=== PATIENT | female | born 1975 | race Caucasian/White ===

== ENCOUNTER → 2016-08-07 | Outpatient (CLI) | payer OTHER ==
[~2016-08-07] MED LIST: /LAMO10TA OR; /LOR25TA PO; ABIL2TAB2 PO; AMBI10TA PO; BUPIVACAINE HCL 0.25% 10 ML VIAL As Ordered ONE; BUPIVACAINE HCL 0.25% 30 ML VIAL As Ordered ONE; CARV3.12 PO; MULT1CHW21 PO; NUCYNTA PO; OXYC1TAB16 PO; OXYC1TAB23 PO; OXYC5TAB2 PO; OXYCODONE/APAP PO; PRIL20CA9 PO; QUET30TA OR; RIZA5TAB PO; ROBA750T4 PO; TOPA100T8 PO; TRAM50TA2 PO; TRIAMCINOLONE ACETONIDE SUSP 40 MG/ML VIAL (J3301) As Ordered ONE; VOLT1GEL2 TOP; XANA0.5T PO; XANA1TAB2 PO; norco PO
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
== END ==
LOC: M PAIN 09:00
PROVIDERS: ATTEND Anesthesiology
DX: G89.29 Other chronic pain (principal); M79.1 Myalgia; Z79.891 Long term (current) use of opiate analgesic; Z79.899 Other long term (current) drug therapy
CPT/HCPCS: 20552; J3301

== ENCOUNTER 2016-08-28 15:45 | Emergency (ER) | payer OTHER ==
[~2016-08-28 15:45] MED LIST changes: -BUPIVACAINE HCL 0.25% 10 ML VIAL As Ordered ONE; -BUPIVACAINE HCL 0.25% 30 ML VIAL As Ordered ONE; -TRIAMCINOLONE ACETONIDE SUSP 40 MG/ML VIAL (J3301) As Ordered ONE
[2016-08-28 16:20] LABS: MEAN CORPUSCULAR HEMOGLOBIN 26.4 pg (27.0-33.0); MEAN CORPUSCULAR HGB CONC 32.2 g/dl (32.0-36.5); MEAN CORPUSCULAR VOLUME 82.2 fl (80.0-96.0); RED CELL DISTRIBUTION WIDTH 13.9 % (11.5-14.5); WHITE BLOOD COUNT 6.6 K/mm3 (4.0-10.0)
[2016-08-28 16:30] LABS: AMPHETAMINES LEVEL URINE NEGATIVE (NEGATIVE); BENZODIAZEPINES URINE NEGATIVE (NEGATIVE); COCAINE METABOLITE URINE POSITIVE (NEGATIVE); CONTROL LINE INT CTR LINE PRESENT; METHADONE URINE NEGATIVE (NEGATIVE); OPIATES URINE NEGATIVE (NEGATIVE); TRICYCLIC ANTIDEPRESS URINE NEGATIVE (NEGATIVE)
[2016-08-28 16:38] LABS: CONTROL LINE HCG INT CTR LINE PRESENT
[2016-08-28] MEDS ORDERED: LABETALOL 100 MG TAB As Ordered ONE (16:48)
[2016-08-28 16:58] LABS: ALBUMIN 3.7 GM/DL (3.2-5.2); ALBUMIN/GLOBULIN RATIO 1.06 (1.00-1.93); ALKALINE PHOSPHATASE 148 U/L (45-117); ALT/SGPT 88 U/L (12-78); ANION GAP 11 MEQ/L (8-16); AST/SGOT 190 U/L (15-37); BILIRUBIN,DIRECT 0.1 MG/DL (0.0-0.2); BILIRUBIN,TOTAL 0.4 MG/DL (0.2-1.0); BLOOD UREA NITROGEN 6 MG/DL (7-18); CALCIUM LEVEL 8.4 MG/DL (8.5-10.1); CARBON DIOXIDE LEVEL 24 MEQ/L (21-32); CHLORIDE LEVEL 107 MEQ/L (98-107); CREATININE FOR GFR 0.74 MG/DL (0.55-1.02); GLOMERULAR FILTRATION RATE > 60.0 (>58); GLUCOSE, FASTING 83 MG/DL (70-105); SODIUM LEVEL 142 MEQ/L (136-145); TOTAL PROTEIN 7.2 GM/DL (6.4-8.2)
--- NOTE | 2016-08-28 20:14 | ECGEPIP ---
Stationary ECG Study [facility] - ED Test Date: 2016-08-28 Pat Name: JUHI ROLON Department: Room: - Gender: F Sterile Process Coordinator: BUSTER : 1975 Requested By: PAT Amin Order Number: [id number] Reading MD: Alaina Savage Measurements Intervals [place] Rate: 67 P: 37 NM: 129 QRS: 20 QRSD: 90 T: 34 QT: 381 QTc: 404 Interpretive Statements SINUS RHYTHM DECREASED RATE 06/13/16 Electronically Signed On 08-28-2016 20:14:39 EST by Alaina Savage
--- NOTE | 2016-08-28 20:54 | EDDOCDS ---
Nurse's Notes [facility] Name: Juhi Rolon Age: 40 yrs Sex: Female : 1975 Arrival Date: 08/28/2016 Time: 15:45 Bed [facility] Private MD: Diagnosis: Alcohol abuse with intoxication;Cocaine abuse;Essential (primary) hypertension;Bipolar disorder Presentation: 08/28 15:48 Presenting complaint: Patient states: states I was very depressed and want to hurt k self. admits to episodes of cutting. ++ ETOH use and admits to consumption x 2 days and use of cocaine. Mental Health Triage Level: Level 3: The patient presents for care as a result of a suicide attempt. Adult Sepsis Screening: The patient does not have new or worsening altered mentation. Patient's respiratory rate is less than 22. Systolic blood pressure is greater than 100. Patient has a qSOFA score of 0- Negative Sepsis Screen. Suicide/Homicide risk assessment- The patient admits to and/or has been reported to be having suicidal ideations. Status: Patient is not a guest service manager or dependent. Transition of care: patient was not received from another setting of care. 15:48 Acuity: TIFFANIE Level 3 [facility] 15:48 Method Of Arrival: Police Car [facility] Triage Assessment: 15:53 General: Appears in no apparent distress. Pain: Location: left low back and right low jmk back Pain currently is 8 out of 10 on a pain scale. Level that is acceptable is 8 out of 10 on a pain scale. HIV screening NA for this visit Offered previously. SPECIAL EDUCATION ASSOCIATE: 20:53 LMP 08/28/2016 bharatim Historical: - Allergies: Ibuprofen (history of gastric bypas); - Home Meds: 1. Sertraline 200 mg daily (Last dose: 08/28/2016) 2. hydroxyzine HCl 100 mg Oral tab twice a day (Last dose: 08/28/2016) 3. oxycodone 5 mg Oral TbOr 1 tab every 4-6 hours 4. tizanidine 4 mg oral cap as needed (Last dose: 08/23/2016) - PMHx: GERD; PTSD; OCD; Bipolar disorder; Chronic Low Back Pain; - PSHx: arm surgery; Gastric Bypass; Cholecystectomy; - Social history: Smoking status: Patient uses tobacco products, current some day smoker. No barriers to communication noted, The patient speaks fluent Korean. - Family history: Not pertinent. - : The pt / caregiver states he / she is not on anticoagulants. Home medication list is obtained from the patient. - Exposure Risk Screening:: None identified. - Immunization history:: Last tetanus immunization: unknown. Screenin:59 Screening information is obtained from the patient. Fall risk: No risks identified. jmk Assistance ADL's: requires no assistance with activities of daily living. Abuse/DV Screen: The patient / caregiver reports he/she is: not in a situation that causes fear, pain or injury. Nutritional screening: No deficits noted. Advance Directives: Currently, there is no health care proxy. There is no active DNR order. There is no living will. There is no Power of Assistant Auto Center Manager. Advance directive information has not previously been placed in an [facility] medical record. Further advance directive information is declined. home support is adequate. Assessment: 15:56 General: Appears alert and cooperative responses of adequate content and demeanor. k speech slightly slurred but intelligible. gait is steady. superficial linear abrasions to anterior surface of left wrist. admit to self inflicted this AM. 17:17 General: Appears comfortable, Behavior is cooperative. Respiratory: Airway is patent me3 Respiratory effort is even, unlabored. Derm: Skin is pink, warm & dry. 18:18 General: Appears comfortable, Behavior is cooperative. Respiratory: Airway is patent me3 Respiratory effort is even, unlabored. Derm: Skin is pink, warm & dry. 19:39 General: Appears in no apparent distress, comfortable, Behavior is appropriate for age, slm cooperative, pleasant. General: pt sitting on stretcher eating a sandwich denies needs security observing . Respiratory: Airway is patent Respiratory effort is even, labored. 20:25 General: Appears in no apparent distress, comfortable, Behavior is appropriate for age, slm cooperative, pleasant. General: pt sitting on stretcher denies needs security observing . Pain: Denies pain. Neurological: Level of Consciousness is awake, alert, obeys commands. Respiratory: Airway is patent Respiratory pattern is regular. 20:52 Reassessment: Patient appears in no apparent distress at this time. [facility] Mental Health Eval: 19:28 Status: The patient is not a guest service manager or dependent. [facility] Behavioral Health: The patient is not an established patient of [facility] Behavioral Health. Referral Information: Evaluation referral is generated by a police agency: [employer] on .. The patient was referred for evaluation because Pt drinking earlier today, cut self superficially on L arm, expressed SI.. 19:44 Mental Health history: depression, abusing cocaine. post-traumatic stress disorder, cl ADD, ODD. Mental Health Admissions: None. Current Outpatient Mental Health Services: None. Current living environment is The patient currently lives alone. The patient is . Patient presents to Emergency Department with the following symptoms within the past 2 weeks: alcohol abuse, decreased appetite, depressed mood, Patient has mutilated themselves by cutting their left arm suicidal ideation with no plan. Substance abuse: Patient uses cocaine, Last use was 2 days ago. Mental status exam: Patients appearance is appropriate, Patient's behavior is cooperative, Speech is normal. Affect is appropriate. Mood is anxious. Hallucinations are denied. Appetite is erratic Memory is good. Energy level is normal. Content of thought is normal. Thought process is intact. Cognitive level is oriented to person, place, time and situation Rapport with interviewer is good. Suicidal Ideation is denied. Homicidal ideation is denied. 20:15 Subjective: The patients chief complaint is Pt brought to ED after expressing SI while cl drinking earlier today, neighbor called 911? Pt allowed to sober up in ED, admits that she was feeling "sad" today as she was thinking about her 2 children(ages 14 and 17) whom currently reside with their bio-father. Pt states "they live with him because they like their school district more", otherwise pt and ex have joint custody, pt admits to missing the kids, adds that she and ex "get along better now than we did before", adds that he is very supportive. Pt scratched self on wrist as well with knife, denies any ingestions, denies any prior suicide attempts or psych admissions, denies she had any intent to kill self today, denies SI/HI/AH/VH currently, has hx of cocaine abuse, admits to use "2 or 3 days ago", adds "I don't usually drink so that was not a good idea today", feels the ETOH affected her judgment/behavior today. Pt had been seeing Dr. Diallo but was d/c'd from his service last Fall for missing appt.'s, pt has been receiving her medications from her PCP since then, although she reports "they didn't put me on everything I used to take", has been taking Zoloft and Hydroxyzine x 2 weeks. Pt continues to deny SI/HI and requests d/c home, feels she can be safely d/c'd with her ex spouse Jerardo Gayle. PSA contacted Mr. Gayle who felt comfortable with pt being d/c'd to his residence, also offered to come to ED to transport pt home with him. Pt can CFS at this time and has safe d/c with responsible green party.. Delusions are denied. Patient's mood is anxious, Hallucinations are denied. Disposition: Medically cleared for disposition by Pat Bui MD Psychiatric Consult is performed by phone with Dr Judah Oliva MD. [facility] Admission Criteria: Not Applicable. [place] because the patient does not display any suicidal or homicidal ideations and does not pose a risk to self or others. DSM-V Differential Diagnosis: Adjustment Disorder (F43.2) Alcohol Intoxication moderate. Insurance Pre-Certification: Not Required. Vital Signs: 15:53 BP 164 / 106; Pulse 82; Resp 16; Temp 96.8; Pulse Ox 99% on R/A; Weight 89.36 kg; [facility] Height 5 ft. 3 in. (160.02 cm); 16:36 BP 142 / 100 (man/); Pulse 80; Resp 16; k 19:39 BP 138 / 88 (man/); slm 15:53 Body Mass Index 34.90 (89.36 kg, 160.02 cm) [facility] Vitals: 15:53 Log In Time: August 28, 2016 at 15:40. [facility] ED Course: 15:46 Patient visited by Keven Bullard. jp5 15:46 Patient moved to Waiting jp5 15:47 Alyce Guthrie, RN is Primary Nurse. kcs 15:47 Patient moved to kcs 15:49 Triage Initiated [facility] 15:56 Pat Bui MD is Attending Physician. br1 15:59 The patient / caregiver is instructed regarding the plan of care and ED course. jmk 16:08 Patient visited by Michael Medina PCA. jlf 16:08 Patient visited by Michael Medina PCA. jlf 16:08 Psych Safety Check: Location: Medical Room. Visual Assessment: Cooperative. jlf 16:08 Property removed, inventory done, secured in belongings bag- placed in locked storage [facility] room. 16:09 Acetaminophen Level Sent. jmk 16:09 Basic Metabolic Profile Sent. jmk 16:09 Complete Blood Count Sent. jmk 16:09 Drug Eval Toxicology ED Only Sent. jmk 16:10 Ethyl Alcohol (ethanol) Sent. jmk 16:10 HCG,Serum Qualitative Sent. jmk 16:10 Liver Profile Sent. jmk 16:10 Salicylate Level Sent. jmk 16:10 Thyroid Stimulating Hormone Sent. jmk 16:30 Patient visited by Michael Medina PCA. jlf 16:30 Patient visited by Pat Bui MD. br1 16:36 Patient visited by Rony Carlson RN. jmk 16:51 EKG done. (by ED staff). Reviewed by Pat Bui MD. jlf 16:53 Patient visited by Michael Medina PCA. jlf 17:00 Patient moved to [place] [id number] 17:06 Patient visited by Chauncey Ruffin Security Aide. pjf 17:35 [facility] [place] Payment Agreement was scanned into [employer] and attached to record. gjb 17:37 Patient visited by Chauncey Ruffin Security Aide. pjf 18:08 Patient visited by Chauncey Ruffin Security Aide. pjf 18:25 Patient visited by Michael Medina PCA. jlf 18:25 Patient visited by Michael Medina PCA. jlf 18:44 Patient visited by Abran Gracia. mas 19:04 Patient visited by Chauncey Ruffin Security Aide. pjf 19:06 Primary Nurse role handed off by Alyce Guthrie, LISETH jjr 19:21 Patient visited by Chauncey Ruffin Security Aide. pjf 19:30 Patient visited by Abran Gracia. mas 19:37 Attending Physician role handed off by Pat Bui MD cs11 19:37 Benny Hernandez DO is Attending Physician. cs11 19:38 Pat Bui MD is Attending Physician. br1 19:39 Giovana King LPN is Primary Nurse. slm 19:40 Patient visited by Giovana King LPN. slm 19:57 Patient visited by Abran Gracia. mas 20:25 Patient visited by Giovana King LPN. slm 20:32 Patient visited by Pat Bui MD. br1 20:34 [facility] is Referral Physician. br1 20:38 PSA Outpatient Referrals was scanned into [employer] and attached to record. ml4 20:45 Patient visited by Abran Gracia. mas 20:52 No IV's were initiated during this patient's visit. No procedures done that require slm assistance. 20:53 Patient visited by Giovana King LPN. slm 20:54 EKG-ADULT Returned. EDMS Administered Medications: 16:53 Drug: Labetalol 100 mg [labetalol 100 mg tablet (1 tabs)] Route: PO; jjr 20:54 Follow up: Response: Blood pressure is improved slm Order Results: Lab Order: Acetaminophen Level; SPEC'M 08/28/16 16:06 Test: ACETAMINOPHEN LEVEL; Value: < 2.0; Range: 10.0-30.0; Abnormal: Below low normal; Units: UG/ML; Status: F Lab Order: Basic Metabolic Profile; SPEC'M 08/28/16 16:06 Test: GLUCOSE, FASTING; Value: 83; Range: 70-105; Units: MG/DL; Status: F Test: BLOOD UREA NITROGEN; Value: 6; Range: 7-18; Abnormal: Below low normal; Units: MG/DL; Status: F Test: CREATININE FOR GFR; Value: 0.74; Range: 0.55-1.02; Units: MG/DL; Status: F Test: SODIUM LEVEL; Range: 136-145; Units: MEQ/L; Status: I Test: POTASSIUM SERUM; Range: 3.5-5.1; Units: MEQ/L; Status: I Test: CHLORIDE LEVEL; Range: 98-107; Units: MEQ/L; Status: I Test: CARBON DIOXIDE LEVEL; Range: 21-32; Units: MEQ/L; Status: I Test: ANION GAP; Range: 8-16; Units: MEQ/L; Status: I Test: CALCIUM LEVEL; Range: 8.5-10.1; Units: MG/DL; Status: I Test: GLOMERULAR FILTRATION RATE; Value: > 60.0; Range: >58; Status: F Test: SODIUM LEVEL; Value: 142; Range: 136-145; Units: MEQ/L; Status: F Test: POTASSIUM SERUM; Value: 4.0; Range: 3.5-5.1; Units: MEQ/L; Status: F Test: CHLORIDE LEVEL; Value: 107; Range: 98-107; Units: MEQ/L; Status: F Test: CARBON DIOXIDE LEVEL; Value: 24; Range: 21-32; Units: MEQ/L; Status: F Test: ANION GAP; Value: 11; Range: 8-16; Units: MEQ/L; Status: F Test: CALCIUM LEVEL; Value: 8.4; Range: 8.5-10.1; Abnormal: Below low normal; Units: MG/DL; Status: F Test Note: ; Units are mL/min/1.73 m2 Chronic Kidney Disease Staging per NKF: Stage I & II GFR >=60 Normal to Mildly Decreased Stage III GFR 30-59 Moderately Decreased Stage IV GFR 15-29 Severely Decreased Stage V GFR <15 Very Little GFR Left ESRD GFR <15 on WINDER HAND Lab Order: Complete Blood Count; [facility]08/28[facility] 16:06 Test: WHITE BLOOD COUNT; Value: 6.6; Range: 4.0-10.0; Units: K/mm3; Status: F Test: RED BLOOD COUNT; Value: 5.12; Range: 4.00-5.40; Units: M/mm3; Status: F Test: HEMOGLOBIN; Value: 13.5; Range: 12.0-16.0; Units: g/dl; Status: F Test: HEMATOCRIT; Value: 42.1; Range: 36.0-47.0; Units: %; Status: F Test: MEAN CORPUSCULAR VOLUME; Value: 82.2; Range: 80.0-96.0; Units: fl; Status: F Test: MEAN CORPUSCULAR HEMOGLOBIN; Value: 26.4; Range: 27.0-33.0; Abnormal: Below low normal; Units: pg; Status: F Test: MEAN CORPUSCULAR HGB CONC; Value: 32.2; Range: 32.0-36.5; Units: g/dl; Status: F Test: RED CELL DISTRIBUTION WIDTH; Value: 13.9; Range: 11.5-14.5; Units: %; Status: F Test: PLATELET COUNT, AUTOMATED; Value: 342; Range: 150-450; Units: k/mm3; Status: F Lab Order: Drug Eval Toxicology ED Only; SPEC' 08/28/16 16:06 Test: AMPHETAMINES LEVEL URINE; Value: NEGATIVE; Range: NEGATIVE; Status: F Test: BARBITURATES URINE; Value: NEGATIVE; Range: NEGATIVE; Status: F Test: BENZODIAZEPINES URINE; Value: NEGATIVE; Range: NEGATIVE; Status: F Test: CANNABINOIDS URINE; Value: NEGATIVE; Range: NEGATIVE; Status: F Test: COCAINE METABOLITE URINE; Value: POSITIVE; Range: NEGATIVE; Abnormal: Above high normal; Status: F Test: METHADONE URINE; Value: NEGATIVE; Range: NEGATIVE; Status: F Test: OPIATES URINE; Value: NEGATIVE; Range: NEGATIVE; Status: F Test: TRICYCLIC ANTIDEPRESS URINE; Value: NEGATIVE; Range: NEGATIVE; Status: F Test Note: ; ALL PRESUMPTIVE POSITIVE FINDINGS ARE UNCONFIRMED NORMAL VALUES THRESHOLD IN NG/ML AMPHETAMINES 1000 METHAMPHETAMINES 1000 BARBITURATES 300 BENZODIAZEPINES 300 CANNABINOIDS (THC) 50 COCAINE METABOLITE 300 METHADONE 300 OPIATES 300 PHENCYCLIDINE 25 TRICYCLIC ANTIDEPRESSANTS 1000 RESULTS ARE FOR MEDICAL PURPOSES ONLY. ALL URINE SPECIMENS WILL BE SAVED FOR 3 DAYS. IF CONFIRMATION OF A PRESUMPTIVE POSTIVE SCREEN RESULT IS DESIRED, CALL CHEMISTRY ([phone]) AND REQUEST URINE TO BE SENT TO REFERENCE LAB. FOR A LIST OF CLOSELY RELATED COMPOUNDS PLEASE CALL THE LAB. Lab Order: Ethyl Alcohol (ethanol); SPEC'M 08/28/16 16:06 Test: ETHYL ALCOHOL (ETHANOL); Value: 0.152; Range: 0.000-0.010; Abnormal: Above high normal; Units: %; Status: F Lab Order: HCG,Serum Qualitative; SPEC'08/28/16 16:06 Test: HCG, SERUM QUALITATIVE; Value: NEGATIVE; Range: NEGATIVE; Status: F Lab Order: Liver Profile; [facility] 08/28/16 16:06 Test: AST/SGOT; Value: 190; Range: 15-37; Abnormal: Above high normal; Units: U/L; Status: F Test: ALT/SGPT; Value: 88; Range: 12-78; Abnormal: Above high normal; Units: U/L; Status: F Test: ALKALINE PHOSPHATASE; Value: 148; Range: 45-117; Abnormal: Above high normal; Units: U/L; Status: F Test: BILIRUBIN,TOTAL; Value: 0.4; Range: 0.2-1.0; Units: MG/DL; Status: F Test: BILIRUBIN,DIRECT; Value: 0.1; Range: 0.0-0.2; Units: MG/DL; Status: F Test: TOTAL PROTEIN; Value: 7.2; Range: 6.4-8.2; Units: GM/DL; Status: F Test: ALBUMIN; Value: 3.7; Range: 3.2-5.2; Units: GM/DL; Status: F Test: ALBUMIN/GLOBULIN RATIO; Value: 1.06; Range: 1.00-1.93; Status: F Lab Order: Salicylate Level; SPEC'M 08/28/16 16:06 Test: SALICYLATE LEVEL; Value: < 1.7; Range: 5.0-30.0; Abnormal: Below low normal; Units: MG/DL; Status: F Lab Order: Thyroid Stimulating Hormone; SPEC'M 08/28/16 16:06 Test: THYROID STIMULATING HORMONE; Value: 0.874; Range: 0.358-3.740; Units: uIU/ML; Status: F Radiology Order: EKG-ADULT Test: EKG-ADULT REASON FOR EXAMINATION: dysrhythmia; Stationary ECG Study; [facility] - ED; ; Test Date: 2016-08-28; Pat Name: JUHI ROLON Department:; Room: -; Gender: F 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 br1 20:52 Discharge Assessment: Patient awake, alert and oriented x 3. No cognitive and/or slm functional deficits noted. Patient verbalized understanding of disposition instructions. patient administered narcotics - no. The following High Risk Discharge criteria are identified: Yes, pt seen by MD and PSA . Discharged to home ambulatory, with significant other. Condition: stable Condition: improved. Discharge instructions given to patient, Instructed on discharge instructions, follow up and referral plans. Demonstrated understanding of instructions, Pt was receptive of discharge instructions/ teaching. No special radiology studies were completed. 20:54 Patient left the ED. slm Signatures: Dispatcher [employer] EDMS Olivia Harmon, RN RN Rony ColindresRN RN pradeep Casanova, Casey, PSA PSA cl Chauncey Ruffin, Security Aide Securpf Keely Harrison,CHIEF BUSINESS OFFICER CHIEF BUSINESS OFFICER me3 Ailin Lawrence, PSA PSA ml4 Pat Bui MD MD br1 Alyce Guthrie, RN RN Abran Maddox Craig, DO cs11 Giovana King,CHIEF BUSINESS OFFICER CHIEF BUSINESS OFFICER slm Michael Medina, JANIE INSPECTING AND TESTING LEAD HAND Keven Car Gabriela gjb MTDD
--- NOTE | 2016-08-28 20:54 | EDDOCDS ---
Physician Documentation [facility] Name: Aysha Garza Age: 40 yrs Sex: Female : 1975 Arrival Date: 08/28/2016 Time: 15:45 Bed U4 Private MD: Disposition: 08/28/16 20:36 Discharged to Home/Self Care. Impression: Alcohol abuse with intoxication, Cocaine abuse, Essential (primary) hypertension, Bipolar disorder. - Condition is Stable. - Discharge Instructions: Alcohol Intoxication, Hypertension, Bipolar Disorder. - Medication Reconciliation, Local Pharmacy Hours form. - Follow up: Private Physician; When: 2 - 3 days; Reason: Recheck today's complaints. Follow up: [facility]; When: 2 - 3 days; Reason: Recheck today's complaints. - Problem is an ongoing problem. - Symptoms have improved. - Notes: You were seen in the ED for a mental health evaluation with concerns for depression. Blood pressure was elevated and improved with medication. Bloodwork showed no acute findings other than alcohol intoxication and drug scree showed cocaine. Please refrain from further alcohol and cocaine use as this is very harmful to your health. You will need to see your primary doctor for blood pressure recheck within 1 week - please call in the morning to arrange to be seen. You were allowed to sober and Psychiatry was consulted who recommended you may return home to follow up with mental health as an outpatient - please call in the morning as instructed by your psychosocial assesor to arrange mental health follow up. Return to the ED for any chest pain, trouble breathing, visual changes, headache, weakness, numbness, worsening depression, thoughts of harming self or others or any other concerns. Historical: - Allergies: Ibuprofen (history of gastric bypas); - Home Meds: 1. Sertraline 200 mg daily (Last dose: 08/28/2016) 2. hydroxyzine HCl 100 mg Oral tab twice a day (Last dose: 08/28/2016) 3. oxycodone 5 mg Oral TbOr 1 tab every 4-6 hours 4. tizanidine 4 mg oral cap as needed (Last dose: 08/23/2016) - PMHx: GERD; PTSD; OCD; Bipolar disorder; Chronic Low Back Pain; - PSHx: arm surgery; Gastric Bypass; Cholecystectomy; - Social history: Smoking status: Patient uses tobacco products, current some day smoker. No barriers to communication noted, The patient speaks fluent German. - Family history: Not pertinent. - : The pt / caregiver states he / she is not on anticoagulants. Home medication list is obtained from the patient. - Exposure Risk Screening:: None identified. - Immunization history:: Last tetanus immunization: unknown. 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 3 in. (160.02 cm); 16:36 BP 142 / 100 (man/); Pulse 80; Resp 16; jmk 19:39 BP 138 / 88 (man/); slm 15:53 Body Mass Index 34.90 (89.36 kg, 160.02 cm) k MDM: 15:55 Consult PFS/PSA/Housekeeping Attendant ordered. ml6 15:55 Consult PFS/PSA/Housekeeping Attendant: Patient's case requires discussion with on-call ml6 Psychiatrist ordered. 15:55 PSA/PFS to call Nursing Apartment Coordinator, to enter patient data on [place] Safe Act if patient ml6 involuntarily admitted or transferred for SI or HI ordered. 15:55 Confirm accurate psychiatric medication list and times of last dosage ordered. ml6 15:55 Detain Pt Until Medically/PFS Cleared ordered. ml6 15:55 Acetaminophen Level Ordered. EDMS 15:55 Basic Metabolic Profile Ordered. EDMS 15:55 Complete Blood Count Ordered. EDMS 15:55 Drug Eval Toxicology ED Only Ordered. EDMS 15:55 Ethyl Alcohol (ethanol) Ordered. EDMS 15:55 HCG,Serum Qualitative Ordered. EDMS 15:55 Liver Profile Ordered. EDMS 15:55 Salicylate Level Ordered. EDMS 15:55 Thyroid Stimulating Hormone Ordered. EDMS 16:23 REGULAR DIET ROOM SERVICE ED+DIET ordered. EDMS 16:31 Misc. Nursing Order ordered. br1 16:42 Complete Blood Count Reviewed. br1 16:42 Drug Eval Toxicology ED Only Reviewed. br1 16:42 HCG,Serum Qualitative Reviewed. br1 16:43 Labetalol 100 mg PO once ordered. br1 16:45 ECG WITH READING ER PHYS+CARDIAG ordered. EDMS 16:54 Financial registration complete. gjb 17:33 REGULAR DIET ROOM SERVICE ED+DIET ordered. EDMS 17:35 [facility] [place] Agreement was scanned into [employer] and attached to record. gjb 17:51 Acetaminophen Level Reviewed. br1 17:51 Basic Metabolic Profile Reviewed. br1 17:51 Ethyl Alcohol (ethanol) Reviewed. br1 17:51 Liver Profile Reviewed. br1 17:51 Salicylate Level Reviewed. br1 17:51 HCG,Serum Qualitative Reviewed. br1 17:51 Thyroid Stimulating Hormone Reviewed. br1 19:07 Recheck B/P ordered. br1 19:34 Consult PFS/PSA/Housekeeping Attendant complete. cl 19:35 Consult PFS/PSA/Housekeeping Attendant: Patient's case requires discussion with on-call cl Psychiatrist complete. 19:35 PSA/PFS to call Nursing Apartment Coordinator, to enter patient data on [place] Safe [place] if patient cl involuntarily admitted or transferred for SI or HI complete. 20:38 PSA Outpatient Referrals was scanned into [employer] and attached to record. ml4 Administered Medications: 16:53 Drug: Labetalol 100 mg [labetalol 100 mg tablet (1 tabs)] Route: PO; jjr 20:54 Follow up: Response: Blood pressure is improved slm Signatures: Dispatcher [employer] EDMS Rony Carlson,RN RN jmk Edilberto, Casey, PSA PSA cl Ailin Lawrence, PSA PSA ml4 Juan Bui MD MD br1 Anastacio Loaiza RN RN ml6 Giovana King LPN DINING ROOM HOST slKristen Rodriguez gjb Alyce Guthrie RN jjr The chart was reviewed and I authenticate all verbal orders and agree with the evaluation and treatment provided.Attachments: 17:35 [facility] [place] Agreement gjb MTDD
--- NOTE | 2016-08-30 21:55 | EDDOCDS ---
Physician Documentation [facility] Name: Aysha Garza Age: 40 yrs Sex: Female : 1975 Arrival Date: 08/28/2016 Time: 15:45 Bed U4 Private MD: Disposition: 08/28/16 20:36 Discharged to Home/Self Care. Impression: Alcohol abuse with intoxication, Cocaine abuse, Essential (primary) hypertension, Bipolar disorder. - Condition is Stable. - Discharge Instructions: Alcohol Intoxication, Hypertension, Bipolar Disorder. - Medication Reconciliation, Local Pharmacy Hours form. - Follow up: Private Physician; When: 2 - 3 days; Reason: Recheck today's complaints. Follow up: [facility]; When: 2 - 3 days; Reason: Recheck today's complaints. - Problem is an ongoing problem. - Symptoms have improved. - Notes: You were seen in the ED for a mental health evaluation with concerns for depression. Blood pressure was elevated and improved with medication. Bloodwork showed no acute findings other than alcohol intoxication and drug scree showed cocaine. Please refrain from further alcohol and cocaine use as this is very harmful to your health. You will need to see your primary doctor for blood pressure recheck within 1 week - please call in the morning to arrange to be seen. You were allowed to sober and Psychiatry was consulted who recommended you may return home to follow up with mental health as an outpatient - please call in the morning as instructed by your psychosocial assesor to arrange mental health follow up. Return to the ED for any chest pain, trouble breathing, visual changes, headache, weakness, numbness, worsening depression, thoughts of harming self or others or any other concerns. Historical: - Allergies: Ibuprofen (history of gastric bypas); - Home Meds: 1. Sertraline 200 mg daily (Last dose: 08/28/2016) 2. hydroxyzine HCl 100 mg Oral tab twice a day (Last dose: 08/28/2016) 3. oxycodone 5 mg Oral TbOr 1 tab every 4-6 hours 4. tizanidine 4 mg oral cap as needed (Last dose: 08/23/2016) - PMHx: GERD; PTSD; OCD; Bipolar disorder; Chronic Low Back Pain; - PSHx: arm surgery; Gastric Bypass; Cholecystectomy; - Social history: Smoking status: Patient uses tobacco products, current some day smoker. No barriers to communication noted, The patient speaks fluent Cambodian. - Family history: Not pertinent. - : The pt / caregiver states he / she is not on anticoagulants. Home medication list is obtained from the patient. - Exposure Risk Screening:: None identified. - Immunization history:: Last tetanus immunization: unknown. 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 Vital Signs: 15:53 BP 164 / 106; Pulse 82; Resp 16; Temp 96.8; Pulse Ox 99% on R/A; Weight 89.36 kg / jmk 197.01 lbs; Height 5 ft. 3 in. (160.02 cm); 16:36 BP 142 / 100 (man/); Pulse 80; Resp 16; jmk 19:39 BP 138 / 88 (man/); slm 15:53 Body Mass Index 34.90 (89.36 kg, 160.02 cm) k MDM: 15:55 Consult PFS/PSA/Automotive Glazier ordered. ml6 15:55 Consult PFS/PSA/Automotive Glazier: Patient's case requires discussion with on-call ml6 Psychiatrist ordered. 15:55 PSA/PFS to call Nursing Accessibility Lift Technician, to enter patient data on [place] if patient ml6 involuntarily admitted or transferred for SI or HI ordered. 15:55 Confirm accurate psychiatric medication list and times of last dosage ordered. ml6 15:55 Detain Pt Until Medically/PFS Cleared ordered. ml6 15:55 Acetaminophen Level Ordered. EDMS 15:55 Basic Metabolic Profile Ordered. EDMS 15:55 Complete Blood Count Ordered. EDMS 15:55 Drug Eval Toxicology ED Only Ordered. EDMS 15:55 Ethyl Alcohol (ethanol) Ordered. EDMS 15:55 HCG,Serum Qualitative Ordered. EDMS 15:55 Liver Profile Ordered. EDMS 15:55 Salicylate Level Ordered. EDMS 15:55 Thyroid Stimulating Hormone Ordered. EDMS 16:23 REGULAR DIET ROOM SERVICE ED+DIET ordered. EDMS 16:31 Misc. Nursing Order ordered. br1 16:42 Complete Blood Count Reviewed. br1 16:42 Drug Eval Toxicology ED Only Reviewed. br1 16:42 HCG,Serum Qualitative Reviewed. br1 16:43 Labetalol 100 mg PO once ordered. br1 16:45 ECG WITH READING ER PHYS+CARDIAG ordered. EDMS 16:54 Financial registration complete. gjb 17:33 REGULAR DIET ROOM SERVICE ED+DIET ordered. EDMS 17:35 [facility] Payment Agreement was scanned into [employer] and attached to record. gjb 17:51 Acetaminophen Level Reviewed. br1 17:51 Basic Metabolic Profile Reviewed. br1 17:51 Ethyl Alcohol (ethanol) Reviewed. br1 17:51 Liver Profile Reviewed. br1 17:51 Salicylate Level Reviewed. br1 17:51 HCG,Serum Qualitative Reviewed. br1 17:51 Thyroid Stimulating Hormone Reviewed. br1 19:07 Recheck B/P ordered. br1 19:34 Consult PFS/PSA/Automotive Glazier complete. cl 19:35 Consult PFS/PSA/Automotive Glazier: Patient's case requires discussion with on-call cl Psychiatrist complete. 19:35 PSA/PFS to call Nursing Accessibility Lift Technician, to enter patient data on [place] Safe [place] if patient cl involuntarily admitted or transferred for SI or HI complete. 20:38 PSA Outpatient Referrals was scanned into [employer] and attached to record. ml4 08/29 12:01 T-Sheet-- Draft Copy was scanned into [employer] and attached to record. gb 12:01 ECG/EKG was scanned into [employer] and attached to record. gb Administered Medications: 08/28 16:53 Drug: Labetalol 100 mg [labetalol 100 mg tablet (1 tabs)] Route: PO; jjr 20:54 Follow up: Response: Blood pressure is improved slm Signatures: Dispatcher [employer] EDMS Rony Carlson,RN RN pradeep Casanova, Casey, PSA PSA cl Ladonna Rivas, Reg Reg gb Ailin Lawrence, PSA PSA ml4 Juan Bui MD MD br1 Anastacio Loaiza, RN RN ml6 Giovana King LPN LPN slm Beck, Gabriela gjb Alyce Guthrie RN jjr The chart was reviewed and I authenticate all verbal orders and agree with the evaluation and treatment provided.Attachments: 17:35 [facility] Payment Agreement gjb 08/29 12:01 T-Sheet-- Draft Copy gb 12:01 ECG/EKG gb Chart Complete MTDD
--- NOTE | 2016-08-30 21:55 | EDDOCDS ---
Physician Documentation [facility] Name: Aysha Garza Age: 40 yrs Sex: Female : 1975 Arrival Date: 08/28/2016 Time: 15:45 Bed U4 Private MD: Disposition: 08/28/16 20:36 Discharged to Home/Self Care. Impression: Alcohol abuse with intoxication, Cocaine abuse, Essential (primary) hypertension, Bipolar disorder. - Condition is Stable. - Discharge Instructions: Alcohol Intoxication, Hypertension, Bipolar Disorder. - Medication Reconciliation, Local Pharmacy Hours form. - Follow up: Private Physician; When: 2 - 3 days; Reason: Recheck today's complaints. Follow up: [facility]; When: 2 - 3 days; Reason: Recheck today's complaints. - Problem is an ongoing problem. - Symptoms have improved. - Notes: You were seen in the ED for a mental health evaluation with concerns for depression. Blood pressure was elevated and improved with medication. Bloodwork showed no acute findings other than alcohol intoxication and drug scree showed cocaine. Please refrain from further alcohol and cocaine use as this is very harmful to your health. You will need to see your primary doctor for blood pressure recheck within 1 week - please call in the morning to arrange to be seen. You were allowed to sober and Psychiatry was consulted who recommended you may return home to follow up with mental health as an outpatient - please call in the morning as instructed by your psychosocial assesor to arrange mental health follow up. Return to the ED for any chest pain, trouble breathing, visual changes, headache, weakness, numbness, worsening depression, thoughts of harming self or others or any other concerns. Historical: - Allergies: Ibuprofen (history of gastric bypas); - Home Meds: 1. Sertraline 200 mg daily (Last dose: 08/28/2016) 2. hydroxyzine HCl 100 mg Oral tab twice a day (Last dose: 08/28/2016) 3. oxycodone 5 mg Oral TbOr 1 tab every 4-6 hours 4. tizanidine 4 mg oral cap as needed (Last dose: 08/23/2016) - PMHx: GERD; PTSD; OCD; Bipolar disorder; Chronic Low Back Pain; - PSHx: arm surgery; Gastric Bypass; Cholecystectomy; - Social history: Smoking status: Patient uses tobacco products, current some day smoker. No barriers to communication noted, The patient speaks fluent [place]. - Family history: Not pertinent. - : The pt / caregiver states he / she is not on anticoagulants. Home medication list is obtained from the patient. - Exposure Risk Screening:: None identified. - Immunization history:: Last tetanus immunization: unknown. 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 3 in. (160.02 cm); 16:36 BP 142 / 100 (man/); Pulse 80; Resp 16; jmk 19:39 BP 138 / 88 (man/); slm 15:53 Body Mass Index 34.90 (89.36 kg, 160.02 cm) k MDM: 15:55 Consult PFS/PSA/Air Conditioning Service Technician ordered. ml6 15:55 Consult PFS/PSA/Air Conditioning Service Technician: Patient's case requires discussion with on-call ml6 Psychiatrist ordered. 15:55 PSA/PFS to call Nursing Tree Surgeon Helper, to enter patient data [place] if patient ml6 involuntarily admitted or transferred for SI or HI ordered. 15:55 Confirm accurate psychiatric medication list and times of last dosage ordered. ml6 15:55 Detain Pt Until Medically/PFS Cleared ordered. ml6 15:55 Acetaminophen Level Ordered. EDMS 15:55 Basic Metabolic Profile Ordered. EDMS 15:55 Complete Blood Count Ordered. EDMS 15:55 Drug Eval Toxicology ED Only Ordered. EDMS 15:55 Ethyl Alcohol (ethanol) Ordered. EDMS 15:55 HCG,Serum Qualitative Ordered. EDMS 15:55 Liver Profile Ordered. EDMS 15:55 Salicylate Level Ordered. EDMS 15:55 Thyroid Stimulating Hormone Ordered. EDMS 16:23 REGULAR DIET ROOM SERVICE ED+DIET ordered. EDMS 16:31 Misc. Nursing Order ordered. br1 16:42 Complete Blood Count Reviewed. br1 16:42 Drug Eval Toxicology ED Only Reviewed. br1 16:42 HCG,Serum Qualitative Reviewed. br1 16:43 Labetalol 100 mg PO once ordered. br1 16:45 ECG WITH READING ER PHYS+CARDIAG ordered. EDMS 16:54 Financial registration complete. gjb 17:33 REGULAR DIET ROOM SERVICE ED+DIET ordered. EDMS 17:35 [facility] Payment Agreement was scanned into [employer] and attached to record. gjb 17:51 Acetaminophen Level Reviewed. br1 17:51 Basic Metabolic Profile Reviewed. br1 17:51 Ethyl Alcohol (ethanol) Reviewed. br1 17:51 Liver Profile Reviewed. br1 17:51 Salicylate Level Reviewed. br1 17:51 HCG,Serum Qualitative Reviewed. br1 17:51 Thyroid Stimulating Hormone Reviewed. br1 19:07 Recheck B/P ordered. br1 19:34 Consult PFS/PSA/Air Conditioning Service Technician complete. cl 19:35 Consult PFS/PSA/Air Conditioning Service Technician: Patient's case requires discussion with on-call cl Psychiatrist complete. 19:35 PSA/PFS to call Nursing Tree Surgeon Helper, to enter patient data [place] if patient cl involuntarily admitted or transferred for SI or HI complete. 20:38 PSA Outpatient Referrals was scanned into [employer] and attached to record. ml4 08/29 12:01 T-Sheet-- Draft Copy was scanned into [employer] and attached to record. gb 12:01 ECG/EKG was scanned into [employer] and attached to record. gb Administered Medications: 08/28 16:53 Drug: Labetalol 100 mg [labetalol 100 mg tablet (1 tabs)] Route: PO; jjr 20:54 Follow up: Response: Blood pressure is improved slm Signatures: Dispatcher [employer] EDMS Rony Carlson,RN RN pradeep Casanova, Casey, PSA PSA cl Ladonna Rivas, Reg Reg gb Ailin Lawrence, PSA PSA ml4 Juan Bui MD MD br1 Anastacio Loaiza, RN RN ml6 Giovana King LPN LPN slm Beck, Gabriela gjb Alyce Guthrie RN jjr The chart was reviewed and I authenticate all verbal orders and agree with the evaluation and treatment provided.Attachments: 17:35 [facility] Payment Agreement gjb 08/29 12:01 T-Sheet-- Draft Copy gb 12:01 ECG/EKG gb Chart Complete MTDD
--- NOTE | 2016-08-30 21:55 | EDDOCDS ---
Nurse's Notes [facility] Name: Juhi Rolon Age: 40 yrs Sex: Female : 1975 Arrival Date: 08/28/2016 Time: 15:45 Bed [facility] Private MD: Diagnosis: Alcohol abuse with intoxication;Cocaine abuse;Essential (primary) hypertension;Bipolar disorder Presentation: 08/28 15:48 Presenting complaint: Patient states: states I was very depressed and want to hurt k self. admits to episodes of cutting. ++ ETOH use and admits to consumption x 2 days and use of cocaine. Mental Health Triage Level: Level 3: The patient presents for care as a result of a suicide attempt. Adult Sepsis Screening: The patient does not have new or worsening altered mentation. Patient's respiratory rate is less than 22. Systolic blood pressure is greater than 100. Patient has a qSOFA score of 0- Negative Sepsis Screen. Suicide/Homicide risk assessment- The patient admits to and/or has been reported to be having suicidal ideations. Status: Patient is not a medical service technician or dependent. Transition of care: patient was not received from another setting of care. 15:48 Acuity: TIFFANIE Level 3 [facility] 15:48 Method Of Arrival: Police Car [facility] Triage Assessment: 15:53 General: Appears in no apparent distress. Pain: Location: left low back and right low jmk back Pain currently is 8 out of 10 on a pain scale. Level that is acceptable is 8 out of 10 on a pain scale. HIV screening NA for this visit Offered previously. 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 Sertraline 200 mg daily (Last dose: 08/28/2016) 2. hydroxyzine HCl 100 mg Oral tab twice a day (Last dose: 08/28/2016) 3. oxycodone 5 mg Oral TbOr 1 tab every 4-6 hours 4. tizanidine 4 mg oral cap as needed (Last dose: 08/23/2016) - PMHx: GERD; PTSD; OCD; Bipolar disorder; Chronic Low Back Pain; - PSHx: arm surgery; Gastric Bypass; Cholecystectomy; - Social history: Smoking status: Patient uses tobacco products, current some day smoker. No barriers to communication noted, The patient speaks fluent Kazakh. - Family history: Not pertinent. - : The pt / caregiver states he / she is not on anticoagulants. Home medication list is obtained from the patient. - Exposure Risk Screening:: None identified. - Immunization history:: Last tetanus immunization: unknown. Screenin:59 Screening information is obtained from the patient. Fall risk: No risks identified. jmk Assistance ADL's: requires no assistance with activities of daily living. Abuse/DV Screen: The patient / caregiver reports he/she is: not in a situation that causes fear, pain or injury. Nutritional screening: No deficits noted. Advance Directives: Currently, there is no health care proxy. There is no active DNR order. There is no living will. There is no Power of Machine Taper. Advance directive information has not previously been placed in an [facility] medical record. Further advance directive information is declined. home support is adequate. Assessment: 15:56 General: Appears alert and cooperative responses of adequate content and demeanor. k speech slightly slurred but intelligible. gait is steady. superficial linear abrasions to anterior surface of left wrist. admit to self inflicted this AM. 17:17 General: Appears comfortable, Behavior is cooperative. Respiratory: Airway is patent me3 Respiratory effort is even, unlabored. Derm: Skin is pink, warm & dry. 18:18 General: Appears comfortable, Behavior is cooperative. Respiratory: Airway is patent me3 Respiratory effort is even, unlabored. Derm: Skin is pink, warm & dry. 19:39 General: Appears in no apparent distress, comfortable, Behavior is appropriate for age, slm cooperative, pleasant. General: pt sitting on stretcher eating a sandwich denies needs security observing . Respiratory: Airway is patent Respiratory effort is even, labored. 20:25 General: Appears in no apparent distress, comfortable, Behavior is appropriate for age, slm cooperative, pleasant. General: pt sitting on stretcher denies needs security observing . Pain: Denies pain. Neurological: Level of Consciousness is awake, alert, obeys commands. Respiratory: Airway is patent Respiratory pattern is regular. 20:52 Reassessment: Patient appears in no apparent distress at this time. [facility] Mental Health Eval: 19:28 Status: The patient is not a medical service technician or dependent. [facility] Behavioral Health: The patient is not an established patient of [facility] Behavioral Health. Referral Information: Evaluation referral is generated by a police agency: [employer] on .. The patient was referred for evaluation because Pt drinking earlier today, cut self superficially on L arm, expressed SI.. 19:44 Mental Health history: depression, abusing cocaine. post-traumatic stress disorder, cl ADD, ODD. Mental Health Admissions: None. Current Outpatient Mental Health Services: None. Current living environment is The patient currently lives alone. The patient is . Patient presents to Emergency Department with the following symptoms within the past 2 weeks: alcohol abuse, decreased appetite, depressed mood, Patient has mutilated themselves by cutting their left arm suicidal ideation with no plan. Substance abuse: Patient uses cocaine, Last use was 2 days ago. Mental status exam: Patients appearance is appropriate, Patient's behavior is cooperative, Speech is normal. Affect is appropriate. Mood is anxious. Hallucinations are denied. Appetite is erratic Memory is good. Energy level is normal. Content of thought is normal. Thought process is intact. Cognitive level is oriented to person, place, time and situation Rapport with interviewer is good. Suicidal Ideation is denied. Homicidal ideation is denied. 20:15 Subjective: The patients chief complaint is Pt brought to ED after expressing SI while cl drinking earlier today, neighbor called 911? Pt allowed to sober up in ED, admits that she was feeling "sad" today as she was thinking about her 2 children(ages 14 and 17) whom currently reside with their bio-father. Pt states "they live with him because they like their school district more", otherwise pt and ex have joint custody, pt admits to missing the kids, adds that she and ex "get along better now than we did before", adds that he is very supportive. Pt scratched self on wrist as well with knife, denies any ingestions, denies any prior suicide attempts or psych admissions, denies she had any intent to kill self today, denies SI/HI/AH/VH currently, has hx of cocaine abuse, admits to use "2 or 3 days ago", adds "I don't usually drink so that was not a good idea today", feels the ETOH affected her judgment/behavior today. Pt had been seeing Dr. Diallo but was d/c'd from his service last Fall for missing appt.'s, pt has been receiving her medications from her PCP since then, although she reports "they didn't put me on everything I used to take", has been taking Zoloft and Hydroxyzine x 2 weeks. Pt continues to deny SI/HI and requests d/c home, feels she can be safely d/c'd with her ex spouse Jerardo Gayle. PSA contacted Mr. Gayle who felt comfortable with pt being d/c'd to his residence, also offered to come to ED to transport pt home with him. Pt can CFS at this time and has safe d/c with responsible green party.. Delusions are denied. Patient's mood is anxious, Hallucinations are denied. Disposition: Medically cleared for disposition by Pat Bui MD Psychiatric Consult is performed by phone with Dr Judah Oliva MD. [facility] Admission Criteria: Not Applicable. [place]: [place] is not applicable because the patient does not display any suicidal or homicidal ideations and does not pose a risk to self or others. DSM-V Differential Diagnosis: Adjustment Disorder (F43.2) Alcohol Intoxication moderate. Insurance Pre-Certification: Not Required. Vital Signs: 15:53 BP 164 / 106; Pulse 82; Resp 16; Temp 96.8; Pulse Ox 99% on R/A; Weight 89.36 kg; [facility] Height 5 ft. 3 in. (160.02 cm); 16:36 BP 142 / 100 (man/); Pulse 80; Resp 16; k 19:39 BP 138 / 88 (man/); slm 15:53 Body Mass Index 34.90 (89.36 kg, 160.02 cm) [facility] Vitals: 15:53 Log In Time: August 28, 2016 at 15:40. [facility] ED Course: 15:46 Patient visited by Keven Bullard. jp5 15:46 Patient moved to Waiting jp5 15:47 Alyce Guthrie, RN is Primary Nurse. kcs 15:47 Patient moved to kcs 15:49 Triage Initiated [facility] 15:56 Pat Bui MD is Attending Physician. br1 15:59 The patient / caregiver is instructed regarding the plan of care and ED course. jmk 16:08 Patient visited by Michael Medina PCA. jlf 16:08 Patient visited by Michael Medina PCA. jlf 16:08 Psych Safety Check: Location: Medical Room. Visual Assessment: Cooperative. jlf 16:08 Property removed, inventory done, secured in belongings bag- placed in locked storage [facility] room. 16:09 Acetaminophen Level Sent. jmk 16:09 Basic Metabolic Profile Sent. jmk 16:09 Complete Blood Count Sent. jmk 16:09 Drug Eval Toxicology ED Only Sent. jmk 16:10 Ethyl Alcohol (ethanol) Sent. jmk 16:10 HCG,Serum Qualitative Sent. jmk 16:10 Liver Profile Sent. jmk 16:10 Salicylate Level Sent. jmk 16:10 Thyroid Stimulating Hormone Sent. jmk 16:30 Patient visited by Michael Medina PCA. jlf 16:30 Patient visited by Pat Bui MD. br1 16:36 Patient visited by Rony Carlson RN. jmk 16:51 EKG done. (by ED staff). Reviewed by Pat Bui MD. jlf 16:53 Patient visited by Michael Medina PCA. jlf 17:00 Patient moved to [place] [id number] 17:06 Patient visited by Chauncey Ruffin Security Aide. pjf 17:35 [facility] Payment Agreement was scanned into [employer] and attached to record. gjb 17:37 Patient visited by Chauncey Ruffin Security Aide. pjf 18:08 Patient visited by Chauncey Ruffin Security Aide. pjf 18:25 Patient visited by Michael Medina PCA. jlf 18:25 Patient visited by Michael Medina PCA. jlf 18:44 Patient visited by Abran Gracia. mas 19:04 Patient visited by Chauncey Ruffin Security Aide. pjf 19:06 Primary Nurse role handed off by Alyce Guthrie, LISETH jjr 19:21 Patient visited by Chauncey Ruffin Security Aide. pjf 19:30 Patient visited by Abran Gracia. mas 19:37 Attending Physician role handed off by Pat Bui MD cs11 19:37 Benny Hernandez DO is Attending Physician. cs11 19:38 Pat Bui MD is Attending Physician. br1 19:39 Giovana King LPN is Primary Nurse. slm 19:40 Patient visited by Giovana King LPN. slm 19:57 Patient visited by Abran Gracia. mas 20:25 Patient visited by Giovana King LPN. slm 20:32 Patient visited by Pat Bui MD. br1 20:34 [facility] is Referral Physician. br1 20:38 PSA Outpatient Referrals was scanned into [employer] and attached to record. ml4 20:45 Patient visited by Abran Gracia. mas 20:52 No IV's were initiated during this patient's visit. No procedures done that require slm assistance. 20:53 Patient visited by Giovana King LPN. slm 20:54 EKG-ADULT Returned. EDMS 08/29 12:01 T-Sheet-- Draft Copy was scanned into [employer] and attached to record. gb 12:01 ECG/EKG was scanned into [employer] and attached to record. gb Administered Medications: 08/28 16:53 Drug: Labetalol 100 mg [labetalol 100 mg tablet (1 tabs)] Route: PO; jjr 20:54 Follow up: Response: Blood pressure is improved slm Order Results: Lab Order: Acetaminophen Level; SPEC'M 08/28/16 16:06 Test: ACETAMINOPHEN LEVEL; Value: < 2.0; Range: 10.0-30.0; Abnormal: Below low normal; Units: UG/ML; Status: F Lab Order: Basic Metabolic Profile; SPEC'M 08/28/16 16:06 Test: GLUCOSE, FASTING; Value: 83; Range: 70-105; Units: MG/DL; Status: F Test: BLOOD UREA NITROGEN; Value: 6; Range: 7-18; Abnormal: Below low normal; Units: MG/DL; Status: F Test: CREATININE FOR GFR; Value: 0.74; Range: 0.55-1.02; Units: MG/DL; Status: F Test: SODIUM LEVEL; Range: 136-145; Units: MEQ/L; Status: I Test: POTASSIUM SERUM; Range: 3.5-5.1; Units: MEQ/L; Status: I Test: CHLORIDE LEVEL; Range: 98-107; Units: MEQ/L; Status: I Test: CARBON DIOXIDE LEVEL; Range: 21-32; Units: MEQ/L; Status: I Test: ANION GAP; Range: 8-16; Units: MEQ/L; Status: I Test: CALCIUM LEVEL; Range: 8.5-10.1; Units: MG/DL; Status: I Test: GLOMERULAR FILTRATION RATE; Value: > 60.0; Range: >58; Status: F Test: SODIUM LEVEL; Value: 142; Range: 136-145; Units: MEQ/L; Status: F Test: POTASSIUM SERUM; Value: 4.0; Range: 3.5-5.1; Units: MEQ/L; Status: F Test: CHLORIDE LEVEL; Value: 107; Range: 98-107; Units: MEQ/L; Status: F Test: CARBON DIOXIDE LEVEL; Value: 24; Range: 21-32; Units: MEQ/L; Status: F Test: ANION GAP; Value: 11; Range: 8-16; Units: MEQ/L; Status: F Test: CALCIUM LEVEL; Value: 8.4; Range: 8.5-10.1; Abnormal: Below low normal; Units: MG/DL; Status: F Test Note: ; Units are mL/min/1.73 m2 Chronic Kidney Disease Staging per NKF: Stage I & II GFR >=60 Normal to Mildly Decreased Stage III GFR 30-59 Moderately Decreased Stage IV GFR 15-29 Severely Decreased Stage V GFR <15 Very Little GFR Left ESRD GFR <15 on CONTRACTING OFFICER Lab Order: Complete Blood Count; SPEC'M 08/28/16 16:06 Test: WHITE BLOOD COUNT; Value: 6.6; Range: 4.0-10.0; Units: K/mm3; Status: F Test: RED BLOOD COUNT; Value: 5.12; Range: 4.00-5.40; Units: M/mm3; Status: F Test: HEMOGLOBIN; Value: 13.5; Range: 12.0-16.0; Units: g/dl; Status: F Test: HEMATOCRIT; Value: 42.1; Range: 36.0-47.0; Units: %; Status: F Test: MEAN CORPUSCULAR VOLUME; Value: 82.2; Range: 80.0-96.0; Units: fl; Status: F Test: MEAN CORPUSCULAR HEMOGLOBIN; Value: 26.4; Range: 27.0-33.0; Abnormal: Below low normal; Units: pg; Status: F Test: MEAN CORPUSCULAR HGB CONC; Value: 32.2; Range: 32.0-36.5; Units: g/dl; Status: F Test: RED CELL DISTRIBUTION WIDTH; Value: 13.9; Range: 11.5-14.5; Units: %; Status: F Test: PLATELET COUNT, AUTOMATED; Value: 342; Range: 150-450; Units: k/mm3; Status: F Lab Order: Drug Eval Toxicology ED Only; SPEC'M 08/28/16 16:06 Test: AMPHETAMINES LEVEL URINE; Value: NEGATIVE; Range: NEGATIVE; Status: F Test: BARBITURATES URINE; Value: NEGATIVE; Range: NEGATIVE; Status: F Test: BENZODIAZEPINES URINE; Value: NEGATIVE; Range: NEGATIVE; Status: F Test: CANNABINOIDS URINE; Value: NEGATIVE; Range: NEGATIVE; Status: F Test: COCAINE METABOLITE URINE; Value: POSITIVE; Range: NEGATIVE; Abnormal: Above high normal; Status: F Test: METHADONE URINE; Value: NEGATIVE; Range: NEGATIVE; Status: F Test: OPIATES URINE; Value: NEGATIVE; Range: NEGATIVE; Status: F Test: TRICYCLIC ANTIDEPRESS URINE; Value: NEGATIVE; Range: NEGATIVE; Status: F Test Note: ; ALL PRESUMPTIVE POSITIVE FINDINGS ARE UNCONFIRMED NORMAL VALUES THRESHOLD IN NG/ML AMPHETAMINES 1000 METHAMPHETAMINES 1000 BARBITURATES 300 BENZODIAZEPINES 300 CANNABINOIDS (THC) 50 COCAINE METABOLITE 300 METHADONE 300 OPIATES 300 PHENCYCLIDINE 25 TRICYCLIC ANTIDEPRESSANTS 1000 RESULTS ARE FOR MEDICAL PURPOSES ONLY. ALL URINE SPECIMENS WILL BE SAVED FOR 3 DAYS. IF CONFIRMATION OF A PRESUMPTIVE POSTIVE SCREEN RESULT IS DESIRED, CALL CHEMISTRY ([phone]) AND REQUEST URINE TO BE SENT TO REFERENCE LAB. FOR A LIST OF CLOSELY RELATED COMPOUNDS PLEASE CALL THE LAB. Lab Order: Ethyl Alcohol (ethanol); SPEC'M 08/28/16 16:06 Test: ETHYL ALCOHOL (ETHANOL); Value: 0.152; Range: 0.000-0.010; Abnormal: Above high normal; Units: %; Status: F Lab Order: HCG,Serum Qualitative; SPEC'M 08/28/16 16:06 Test: HCG, SERUM QUALITATIVE; Value: NEGATIVE; Range: NEGATIVE; Status: F Lab Order: Liver Profile; SPEC'M 08/28/16 16:06 Test: AST/SGOT; Value: 190; Range: 15-37; Abnormal: Above high normal; Units: U/L; Status: F Test: ALT/SGPT; Value: 88; Range: 12-78; Abnormal: Above high normal; Units: U/L; Status: F Test: ALKALINE PHOSPHATASE; Value: 148; Range: 45-117; Abnormal: Above high normal; Units: U/L; Status: F Test: BILIRUBIN,TOTAL; Value: 0.4; Range: 0.2-1.0; Units: MG/DL; Status: F Test: BILIRUBIN,DIRECT; Value: 0.1; Range: 0.0-0.2; Units: MG/DL; Status: F Test: TOTAL PROTEIN; Value: 7.2; Range: 6.4-8.2; Units: GM/DL; Status: F Test: ALBUMIN; Value: 3.7; Range: 3.2-5.2; Units: GM/DL; Status: F Test: ALBUMIN/GLOBULIN RATIO; Value: 1.06; Range: 1.00-1.93; Status: F Lab Order: Salicylate Level; SPEC'M 08/28/16 16:06 Test: SALICYLATE LEVEL; Value: < 1.7; Range: 5.0-30.0; Abnormal: Below low normal; Units: MG/DL; Status: F Lab Order: Thyroid Stimulating Hormone; SPEC'M 08/28/16 16:06 Test: THYROID STIMULATING HORMONE; Value: 0.874; Range: 0.358-3.740; Units: uIU/ML; Status: F Radiology Order: EKG-ADULT Test: EKG-ADULT REASON FOR EXAMINATION: dysrhythmia; Stationary ECG Study; [facility] - ED; ; Test Date: 2016-08-28; Pat Name: JUHI ROLON Department:; Room: -; Gender: F Perinatal Tech: BUSTER; : 1975 Requested By: PAT Amin; Order Number: [id number] Alexy MD: Alaina Savage; Measurements; Intervals [place]; Rate: 67 P: 37; TN: 129 QRS: 20; QRSD: 90 T: 34; QT: 381; QTc: 404; Interpretive Statements; SINUS RHYTHM; DECREASED RATE 06/13/16; Electronically Signed On 08-28-2016 20:14:39 EST by Alaina Savage; Outcome: 20:36 Discharge ordered by Provider. br1 20:52 Discharge Assessment: Patient awake, alert and oriented x 3. No cognitive and/or slm functional deficits noted. Patient verbalized understanding of disposition instructions. patient administered narcotics - no. The following High Risk Discharge criteria are identified: Yes, pt seen by MD and PSA . Discharged to home ambulatory, with significant other. Condition: stable Condition: improved. Discharge instructions given to patient, Instructed on discharge instructions, follow up and referral plans. Demonstrated understanding of instructions, Pt was receptive of discharge instructions/ teaching. No special radiology studies were completed. 20:54 Patient left the ED. slm Signatures: Dispatcher [employer] EDMS Olivia Harmon, RN RN Rony ColindresRN RN pradeep Casanova, Casey, PSA PSA cl Ladonna Rivas, Reg Reg gb Laly, Chauncey, Security Aide Securpjf Keely Harrison,DIESEL TRUCK MECHANIC DIESEL TRUCK MECHANIC me3 Ailin Lawrence, PSA PSA ml4 Pat Bui MD MD br1 Alyce Guthrie, RN RN Abran Maddox Craig, DO cs11 Giovana King,DIESEL TRUCK MECHANIC DIESEL TRUCK MECHANIC slm Michael Medina, JANIE CREDIT OPERATIONS SPECIALIST Keven Car Gabriela gjb Chart Complete MTDD
== END 2016-08-28 20:54 | disposition home or self-care (01) ==
LOC: M ED 15:45
DX: F10.129 Alcohol abuse with intoxication, unspecified (principal); F14.10 Cocaine abuse, uncomplicated; F31.9 Bipolar disorder, unspecified; I10 Essential (primary) hypertension; K21.9 Gastro-esophageal reflux disease without esophagitis; F43.10 Post-traumatic stress disorder, unspecified; F42.9 Obsessive-compulsive disorder, unspecified; G89.29 Other chronic pain; G54.5 Neuralgic amyotrophy; Z98.84 Bariatric surgery status; Z72.0 Tobacco use; Z79.899 Other long term (current) drug therapy; Z88.6 Allergy status to analgesic agent
CPT/HCPCS: 36415; 80048; 80076; 80306; 84443; 84703; 85027; 93005; 99285; G0480

== ENCOUNTER 2016-09-02 13:40 | Inpatient (IN) | payer MEDICAID, OTHER ==
[~2016-09-02] VITALS: Ht 160 cm; Wt 91.8 kg
[2016-09-02] MEDS ORDERED: diphenhydrAMINE INJ 50MG/ML VIAL (J1200) As Ordered ONE (13:55)
[2016-09-02] MEDS ORDERED: LORazepam 2 MG/ML VIAL (J2060) As Ordered ONE (13:56)
[2016-09-02] MEDS ORDERED: HALOPERIDOL 5 MG/ML VIAL (J1630) As Ordered ONE (13:56)
[2016-09-02 15:02] LABS: MEAN CORPUSCULAR HGB CONC 31.5 g/dl (32.0-36.5); MEAN CORPUSCULAR VOLUME 82.7 fl (80.0-96.0); RED CELL DISTRIBUTION WIDTH 13.8 % (11.5-14.5); WHITE BLOOD COUNT 5.6 K/mm3 (4.0-10.0)
[2016-09-02 15:21] LABS: CONTROL LINE HCG INT CTR LINE PRESENT
[2016-09-02 15:36] LABS: ALBUMIN 3.5 GM/DL (3.2-5.2); ALBUMIN/GLOBULIN RATIO 1.09 (1.00-1.93); ALKALINE PHOSPHATASE 232 U/L (45-117); ALT/SGPT 99 U/L (12-78); ANION GAP 12 MEQ/L (8-16); AST/SGOT 140 U/L (15-37); BILIRUBIN,DIRECT 0.1 MG/DL (0.0-0.2); BILIRUBIN,TOTAL 0.4 MG/DL (0.2-1.0); BLOOD UREA NITROGEN 6 MG/DL (7-18); CARBON DIOXIDE LEVEL 22 MEQ/L (21-32); CHLORIDE LEVEL 108 MEQ/L (98-107); CREATININE FOR GFR 0.85 MG/DL (0.55-1.02); GLOMERULAR FILTRATION RATE > 60.0 (>58); GLUCOSE, FASTING 100 MG/DL (70-105); POTASSIUM SERUM 3.1 MEQ/L (3.5-5.1); SODIUM LEVEL 142 MEQ/L (136-145); TOTAL PROTEIN 6.7 GM/DL (6.4-8.2)
[2016-09-02 16:43] LABS: AMPHETAMINES LEVEL URINE NEGATIVE (NEGATIVE); BENZODIAZEPINES URINE NEGATIVE (NEGATIVE); COCAINE METABOLITE URINE POSITIVE (NEGATIVE); CONTROL LINE INT CTR LINE PRESENT; METHADONE URINE NEGATIVE (NEGATIVE); OPIATES URINE NEGATIVE (NEGATIVE); TRICYCLIC ANTIDEPRESS URINE NEGATIVE (NEGATIVE)
--- NOTE | 2016-09-02 22:47 | EDDOCDS ---
Physician Documentation [facility] Name: Aysha Garza Age: 40 yrs Sex: Female : 1975 Arrival Date: 09/02/2016 Time: 13:40 Bed [facility] Private MD: Disposition: 09/02 22:03 Critical Care: Critical care not applicable. pc Disposition: 09/02/16 22:05 Hospitalization ordered by Alexey Noyola for Inpatient Admission. Preliminary diagnosis are Suicidal ideations, Bipolar disorder, Alcohol abuse with intoxication. - Bed requested for Admit. - Status is Inpatient Admission. slm - Condition is Stable. - Problem is new. - Symptoms are unchanged. HPI: 13:55 This 40 yrs old Female presents to ER with complaints of Psych Problem. pc 13:55 The history is obtained from a police manager. A reliable history and/or examination pc was not able to be obtained, due to an uncooperative/violent patient. The patient presents to the emergency department with suicidal ideation, a history of substance abuse. At their worst, the symptoms were severe. In the emergency department, the symptoms are unchanged. She called police making suicidal threats. They found her intoxicated and denying she made any calls. She admitted to and then denied it. She became violent and was hand cuffed and brought to the ED for Psych eval. The patient has experienced similar episodes in the past, multiple times. The patient has been recently seen at the [facility], this week, for similar complaints. Historical: - Allergies: Ibuprofen (history of gastric bypas); - Home Meds: 1. tizanidine 4 mg oral cap as needed (Last dose: Unknown) 2. Percocet 5-325 mg Oral tab every 8-12 hours as needed 3. Zoloft 100 mg Oral tab once daily 4. Levora-28 0.15-0.03 mg oral tab once daily 5. bupropion HCl 150 mg Oral TbER once daily 6. hydroxyzine HCl 50 mg oral tab four times a day as needed (Last dose: Unknown) - PMHx: Bipolar disorder; Chronic Low Back Pain; GERD; OCD; PTSD; - PSHx: Gastric Bypass; Cholecystectomy; arm surgery; - The history from nurses notes was reviewed: but there are no nursing notes, or only partial notes available at the time of my charting. - Social history: Patient uses alcohol street drugs, cocaine, No barriers to communication noted, The patient speaks fluent [place], Smoking status: Patient uses tobacco products, current some day smoker. - : The pt / caregiver states he / she is not on anticoagulants. Note all medical history obtained from 08/28/16 visit. - Immunization history:: unknown. - Exposure Risk Screening:: Unable to Assess. - Family history: Not pertinent. - Social history:: the patient smokes cigarettes the patient drinks alcohol, including recently. TOBACCO CURER: 14:17 LMP 08/28/2016, Information obtained from previous visit on 08/28/16 [facility] ROS: 14:00 All systems are negative except as listed. The psychiatric and neurological components pc are also addressed in the HPI. Exam: 14:00 General Appearance: alert, uncooperative for examination swearing at staff, being pc restrained by police. 14:00 ENT: 14:00 Eyes: 14:00 Neck: The exam reveals no acute abnormalities. ROM is normal and painless. No nuchal rigidity is noted.. 14:00 Respiratory: breathing is even and unlabored, breath sounds are normal. 14:00 Cardiovascular: regular heart rhythm, tachycardia, 110bpm. 14:00 Extremities: The extremities have a grossly normal appearance. 14:00 Neuro: alert, oriented to person, place and time, no motor deficits. 14:00 Psych: mood is angry, hostile, non-communicative, affect is animated. Vital Signs: 14:11 4 14:26 BP 162 / 71; Pulse 137; Resp 20; Temp 99.8(TE); Pulse Ox 98% on R/A; jc4 14:27 Weight 40.37 kg / 89 lbs; Height 5 ft. 3 in. (160.02 cm); jc4 14:35 BP 160 / 102; Pulse 86; Resp 20; Pulse Ox 97% ; jc4 14:52 BP 154 / 98; Pulse 84; Resp 20; Pulse Ox 95% on R/A; jc4 15:06 BP 151 / 91; Pulse 81; Resp 20; Pulse Ox 96% on R/A; jc4 15:28 BP 169 / 94; Pulse 78; Resp 18; Pulse Ox 96% on R/A; ead 15:45 BP 129 / 68; Pulse 81; Resp 17; Pulse Ox 96% on R/A; pjf 18:47 BP 139 / 69; Pulse 112; Resp 16; Temp 96.(T); Pulse Ox 98% on R/A; ead 22:38 BP 142 / 88 (man/); Pulse 80; Resp 18; Temp 96.4(T); Pulse Ox 98% ; slm 14:27 Body Mass Index 15.77 (40.37 kg, 160.02 cm) jc4 14:11 Unable to obtain vital signs upon arrival jc4 MDM: 13:54 -Haloperidol Lactate 10 mg IM once ordered. pc 13:54 LORazepam 2 mg IM once ordered. pc 13:54 diphenhydrAMINE 50 mg IM once ordered. pc 13:54 Restraints, Adult: Chemical - Meds as ordered (poses imminent danger of self-harm). May pc use manual restraints to ensure safe admin. of meds. Pt. monitoring for min. of 2 hrs per RN policy. ordered. 13:54 The patient poses imminent danger of self harm, The patient requires both physical and pc chemical restraints. 14:00 Differential diagnosis: suicidal ideation, alcohol intoxication, violent and aggressive pc behavior. Plan: chemical restraints, labs, PFS eval. 14:11 Restraints, Adult: Mechanical - 4 points up to 1 hr (poses imminent danger of pc self-harm). May use manual restraints to secure restraint devices. Pt. monitoring per RN policy. ordered. 14:38 Financial registration complete. mm15 14:44 Consult PFS/PSA/Drop Pit Worker: Patient's case requires discussion with on-call pc Psychiatrist ordered. 14:44 PSA/PFS to call Nursing Quality Control Director, to enter patient data on [place] Safe [place] if patient pc involuntarily admitted or transferred for SI or HI ordered. 14:44 Confirm accurate psychiatric medication list and times of last dosage ordered. pc 14:44 Detain Pt Until Medically/PFS Cleared ordered. pc 14:44 Acetaminophen Level Ordered. EDMS 14:44 Basic Metabolic Profile Ordered. EDMS 14:44 Complete Blood Count Ordered. EDMS 14:44 Drug Eval Toxicology ED Only Ordered. EDMS 14:44 Ethyl Alcohol (ethanol) Ordered. EDMS 14:44 HCG,Serum Qualitative Ordered. EDMS 14:44 Liver Profile Ordered. EDMS 14:44 Salicylate Level Ordered. EDMS 14:44 Thyroid Stimulating Hormone Ordered. EDMS 14:44 [facility] Payment Agreement was scanned into [employer] and attached to record. mm15 15:05 Discontinue Restraint / Seclusion ordered. jc4 16:14 Acetaminophen Level Reviewed. pc 16:14 Basic Metabolic Profile Reviewed. pc 16:14 Complete Blood Count Reviewed. pc 16:14 Ethyl Alcohol (ethanol) Reviewed. pc 16:14 Liver Profile Reviewed. pc 16:14 Salicylate Level Reviewed. pc 16:14 HCG,Serum Qualitative Reviewed. pc 16:14 Thyroid Stimulating Hormone Reviewed. pc 17:13 REGULAR DIET PLASTIC RINALDI+DIET ordered. EDMS 17:15 Drug Eval Toxicology ED Only Reviewed. pc 20:54 Consult PFS/PSA/Drop Pit Worker: Patient's case requires discussion with on-call hm1 Psychiatrist complete. 20:54 PSA/PFS to call Nursing Quality Control Director, to enter patient data on [place] Safe [place] if patient hm1 involuntarily admitted or transferred for SI or HI complete. 21:06 Redraw Labs ordered. pc 21:07 Redraw Labs complete. jlm 21:08 POTASSIUM LEVEL Ordered. EDMS 22:03 POTASSIUM LEVEL Reviewed. pc 22:03 The patient has been medically cleared for psychiatric evaluation, admission and/or pc transfer. [place] Safe Act reporting: The patient poses a significant risk to self or others, and PSA/PFS has notified the Nursing Quality Control Director and he/she will complete the required big data engineer. Data reviewed: old medical records, vital signs, nurses notes, lab test results. Test interpretation: LAB - all labs as ordered have been reviewed, interpreted and considered in the overall management of the clinical presentation;. The patient has been re-examined and re-evaluated. There is no appreciated change of the patient's symptoms at this time. Disposition: The historical points, examination findings, and any diagnostic results supporting the provided diagnosis, were discussed with the patient or legal guardian. The need for further work-up and/or treatment in the hospital was explained. 22:30 Admit to IMHU: ordered. EDMS Administered Medications: 14:02 Drug: -Haloperidol Lactate 10 mg [haloperidol lactate 5 mg/mL injection solution (2 jc4 mL)] Route: IM; Site: right gluteus; 14:02 Drug: LORazepam 2 mg [lorazepam 2 mg/mL injection solution (1 mL)] Route: IM; Site: jc4 right gluteus; 14:02 Drug: diphenhydrAMINE 50 mg [diphenhydramine 50 mg/mL injection solution (1 mL)] Route: jc4 IM; Site: right gluteus; Signatures: Dispatcher [employer] EDThom Lazaro MD MD pc Petra Lewis, PSA PSA hm1 Katie Cunha RN RN jc4 Denise Ewing mm15 Giovana King LPN LPN slm Dunaway, Emily, RN RN ead Mitchell, Jessie, [facility] The chart was reviewed and I authenticate all verbal orders and agree with the evaluation and treatment provided.Corrections: (The following items were deleted from the chart) 18:56 14:12 Home Meds: hydroxyzine HCl 100 mg Oral tab twice a day (Last Dose: Unknown); jc4 ead 18:56 14:12 Home Meds: oxycodone 5 mg Oral TbOr 1 tab every 4-6 hours (Last Dose: Unknown); ead jc4 Attachments: 14:44 [facility] Payment Agreement mm15 [facility]
--- NOTE | 2016-09-02 22:47 | EDDOCDS ---
Nurse's Notes [facility] Name: Aysha Garza Age: 40 yrs Sex: Female : 1975 Arrival Date: 09/02/2016 Time: 13:[address] MD: Diagnosis: Suicidal ideations;Bipolar disorder;Alcohol abuse with intoxication Presentation: 09/02 13:51 Presenting complaint: [employer] states that patient called 911 stating that she was going to [facility] kill herself. Neighbor called 911 after her stating that patient had a knife. Pt uncooperative. Yelling upon arrival. States, "I don't want to be here. I don't trust the doctors here." States can't sleep at night and has pain. States is "scared to sleep. Have had a lot to drink. Instructional Manager make me paranoid". 14:32 Mental Health Triage Level: Level 3: The patient displays assaultive behavior and at 4 risk for imminent acting out. Adult Sepsis Screening: The patient does not have new or worsening altered mentation. Patient's respiratory rate is less than 22. Systolic blood pressure is greater than 100. Patient has a qSOFA score of 0- Negative Sepsis Screen. Mental Health Triage Level: Level 3:. Suicide/Homicide risk assessment- The patient reports that he/she has a recent or current history of substance abuse. The patient reports that he/she has adequate social support. Status: Patient is not a financial services director or dependent. Transition of care: patient was not received from another setting of care. 14:32 Acuity: TIFFANIE Level 3 [facility] 14:32 Method Of Arrival: Police Car [facility] Triage Assessment: 14:12 General: Appears distressed, Behavior is uncooperative, screaming, unwilling to stay in jc4 room. Yelling at staff, using foul language. Pain: Unable to use pain scale. uncooperative. The patient is triaged at the bedside. See Assessment in Nurses Notes section of ED record. 22:45 HIV screening NA for this visit Offered previously. [facility] PATIENT FINANCIAL REP: 14:17 LMP 08/28/2016, Information obtained from previous visit on 08/28/16 [facility] Historical: - Allergies: Ibuprofen (history of gastric bypas); - Home Meds: 1. tizanidine 4 mg oral cap as needed (Last dose: Unknown) 2. Percocet 5-325 mg Oral tab every 8-12 hours as needed 3. Zoloft 100 mg Oral tab once daily 4. Levora-28 0.15-0.03 mg oral tab once daily 5. bupropion HCl 150 mg Oral TbER once daily 6. hydroxyzine HCl 50 mg oral tab four times a day as needed (Last dose: Unknown) - PMHx: Bipolar disorder; Chronic Low Back Pain; GERD; OCD; PTSD; - PSHx: Gastric Bypass; Cholecystectomy; arm surgery; - The history from nurses notes was reviewed: but there are no nursing notes, or only partial notes available at the time of my charting. - Social history: Patient uses alcohol street drugs, cocaine, No barriers to communication noted, The patient speaks fluent Welsh, Smoking status: Patient uses tobacco products, current some day smoker. - : The pt / caregiver states he / she is not on anticoagulants. Note all medical history obtained from 08/28/16 visit. - Immunization history:: unknown. - Exposure Risk Screening:: Unable to Assess. - Family history: Not pertinent. - Social history:: the patient smokes cigarettes the patient drinks alcohol, including recently. Screenin:29 Screening information is obtained from prior medical records. Fall risk: At risk due to jc4 apparent chemical impairment, The following interventions are performed due to a positive Fall Risk Screen: Fall Risk is added to Special Handling on the patient Summary Screen. A Fall Risk Bracelet was applied to the patient. Side Rails are placed in the up position. A Call Magallanes is given with instruction to call for help when getting out of bed. Assistance ADL's: requires no assistance with activities of daily living. Abuse/DV Screen: The patient / caregiver reports he/she is: not in a situation that causes fear, pain or injury. Nutritional screening: No deficits noted. Advance Directives: Currently, there is no health care proxy. There is no active DNR order. There is no living will. There is no Power of Shear Tender. home support is adequate. 14:30 Fall Risk. jc4 Assessment: 14:19 General: Pt uncooperative upon arrival to department. Unwilling to listen to staff jc4 explanations. Screaming. Getting in staff's faces. States, "I just want to go home. I've got my kids, and that 's all I got". Using foul language. States, "I'm suing you, all of you". Color pink, skin warm and dry. Refuses staff to get near her. States, "I didn't hurt myself, these cuts are from Sunday, pointing to inner left forearm. "I know how to cut". Pt requires presence of 4 [place] [address] personnel. 14:27 General: Pt lying on stretcher with head elevated. Color pink, skin warm and dry. jc4 Respirations easy and full. Security continuing to observe patient. 15:00 General: Appears in no apparent distress, Behavior is cooperative, pt appears to be ead resting. Respiratory: Airway is patent Respiratory effort is even, unlabored. Derm: Skin is pink, warm & dry. 15:15 General: Appears in no apparent distress, to be sleeping. Respiratory: Airway is patent ead Respiratory effort is even, unlabored. Derm: Skin is pink, warm & dry. 16:00 General: Appears in no apparent distress, to be sleeping. Respiratory: Airway is patent ead Respiratory effort is even, unlabored. Derm: Skin is pink, warm & dry. 16:48 General: Appears in no apparent distress, to be sleeping. Cardiovascular:. Respiratory: ead Airway is patent Respiratory effort is even, unlabored. Derm: Skin is pink, warm & dry. 18:03 General: Appears in no apparent distress, comfortable, Behavior is appropriate for age, ead cooperative, pt sitting up eating dinner, confirms medication list is accurate. Medications discussed with Dr. Patterson. He states pt does not need home medication doses this evening. . 18:47 General: Appears in no apparent distress, comfortable, Behavior is cooperative, pt ead finished with dinner, lying down with eyes closed, responds to verbal stimuli. . Respiratory: Airway is patent Respiratory effort is even, unlabored. Derm: Skin is pink, warm & dry. 18:57 General: medication list verified by Radha Mayes. ead 19:22 General: Appears in no apparent distress, comfortable, to be sleeping. Behavior is slm quiet. General: pt asleep on stretcher security observing . Respiratory: Airway is patent Respiratory effort is even, unlabored. Derm: Skin is pink, warm & dry. 20:20 General: Appears in no apparent distress, comfortable, Behavior is appropriate for age, slm cooperative, pleasant. General: pt resting on stretcher denies needs security observing . Pain: Denies pain. Respiratory: Airway is patent Respiratory effort is even, unlabored. Derm: Skin is pink, warm & dry. 21:20 General: Appears in no apparent distress, comfortable, Behavior is appropriate for age, slm cooperative, pleasant. General: pt resting on stretcher security . Pain: Denies pain. Respiratory: Airway is patent Respiratory effort is even, unlabored. :. Derm: Skin is pink, warm & dry. 22:22 General: Appears in no apparent distress, comfortable, Behavior is cooperative. slm General: pt resting on stretcher denies needs security observing . Respiratory: Airway is patent Respiratory effort is even, unlabored, Respiratory pattern is regular. 22:37 General: Appears in no apparent distress, comfortable, Behavior is cooperative. slm General: pt resting on stretcher security observing . Pain: Denies pain. Respiratory: Airway is patent Respiratory effort is even, unlabored. Derm: Skin is pink, warm & dry. Mental Health Eval: 20:27 Mental health consult is initiated at 20:30. Status: The patient is not a 1 financial services director or dependent. [facility] Behavioral Health: The patient is not an established patient of [facility]. Referral Information: Evaluation referral is generated by a police agency: [employer]. The patient was referred for evaluation because Officer Roll reports that pt called 911 reporting that she was going to kill herself. Shortly after that call pt's neighbor called 911 stating that pt was threatening to harm herself and had a knife. Subjective: The patients chief complaint is Pt reports that she was telling her neighbor about her ED visit earlier in the week and he "took it the wrong way" and called 911 reporting that she was suicidal today. Delusions are denied. Patient's mood is irritable, Hallucinations are denied. Pt is very vague and guarded at this time stating that there is no reason for her being here today. She denies making the call to 911 earlier today and states that it was her neighbor who called. Pt admits to making suicidal statements on Sunday (08/28/16) and states that she cut her arm on that day as well, however denies being suicidal at this time. Pt initially reports that the neighbor is a friend of her's whom she was confiding in, however when asked if we could speak to him about their conversation earlier that led to the police call she stated that they "barely know each other" and he's just a neighbor. Pt reports a history of Bipolar, PTSD, Anxiety, and OCD. Pt reports that she had been receiving treatment about 3 years ago, however she stopped going. She has scheduled an intake appointment for [facility], which she indicates is Sunday (09/04/16). Subjective: Pt reports a history of substance abuse, states that she uses cocaine occasionally and drinks alcohol "on weekends". She reports that she is interested in addictions treatment, she states that she is hoping to begin that after she starts at [facility]. Mental Health history: anxiety, Bipolar Disorder, post-traumatic stress disorder, Mental Health Admissions: None. Current Outpatient Mental Health Services: None. Current living environment is Family / Home Support: pt lives alone, states that her ex- is her primary source of support. He currently lives in [place] with their 2 children, ages 17 and 14. Patient presents to Emergency Department with the following symptoms within the past 2 weeks: agitation, alcohol abuse, anger, depressed mood, labile mood, poor impulse control, Patient has mutilated themselves by cutting their left arm sleep disturbance - insomnia, suicidal ideation with plan for cutting. Substance abuse: Patient uses beer, daily. Mental status exam: Patients appearance is appropriate, Patient's behavior is superficially cooperative Speech is pressured. Affect is labile. Mood is irritable. Hallucinations are denied. Appetite is normal. Memory is good. Energy level is normal. Content of thought is normal. Thought process is intact. Cognitive level is oriented to person, place, time and situation Patient's insight is poor. Judgement is poor. Rapport with interviewer is guarded. Suicidal Ideation present with a plan to kill self by cutting. Homicidal ideation is not present. 22:26 Disposition: Medically cleared for disposition by Thom Patterson MD Psychiatric Consult hm1 is performed by phone with Dr Alexey Noyola. [facility] Admission Criteria: The patient is experiencing suicidal ideation. The patient displays self-mutilative behavior. The patient requires continuous observation and/or control to protect self, others or property. The patient's care requires a multi-modal treatment plan under close supervision and coordination due to the complexity and severity of the patient's symptoms. The patient requires administration and monitoring of psychoactive medications by skilled medical providers due to the side effects of the psychoactive medications or significant dosage adjustments. Legal Status: Patient's legal status will be Emergency admission: . [place] Safe Act: [place] Safe Act is applicable to this patient. The patient poses a risk to self or other and the Nursing Icd 9 Coder has been notified. He/She will enter the patient's data. DSM-V Differential Diagnosis: Bipolar I Disorder (F31.0) Current or most recent episode unspecified (F31.9). Awaiting: transfer to [facility]. Vital Signs: 14:11 jc4 14:26 BP 162 / 71; Pulse 137; Resp 20; Temp 99.8(TE); Pulse Ox 98% on R/A; jc4 14:27 Weight 40.37 kg; Height 5 ft. 3 in. (160.02 cm); jc4 14:35 BP 160 / 102; Pulse 86; Resp 20; Pulse Ox 97% ; jc4 14:52 BP 154 / 98; Pulse 84; Resp 20; Pulse Ox 95% on R/A; jc4 15:06 BP 151 / 91; Pulse 81; Resp 20; Pulse Ox 96% on R/A; jc4 15:28 BP 169 / 94; Pulse 78; Resp 18; Pulse Ox 96% on R/A; ead 15:45 BP 129 / 68; Pulse 81; Resp 17; Pulse Ox 96% on R/A; pjf 18:47 BP 139 / 69; Pulse 112; Resp 16; Temp 96.(T); Pulse Ox 98% on R/A; ead 22:38 BP 142 / 88 (man/); Pulse 80; Resp 18; Temp 96.4(T); Pulse Ox 98% ; slm 14:27 Body Mass Index 15.77 (40.37 kg, 160.02 cm) 4 14:11 Unable to obtain vital signs upon arrival 4 Vitals: 14:11 Log In time N/A- police car arrival. [facility] ED Course: 13:42 Patient visited by Ladonna Rivas, Reg. gb 13:42 Patient moved to [facility] 13:44 Katie Cunha, RN is Primary Nurse. b1 13:44 Patient moved to BHU2 mlb1 13:47 Thom Patterson MD is Attending Physician. pc 13:53 Patient visited by Thom Patterson MD. pc 14:00 Pt greeted and oriented to ED. Patient advised of names of staff involved in care, pjf location of call magallanes, wait times and NPO status. Accompanied by Law Enforcement, [employer] - (9.41), Patient has correct armband on for positive identification. Placed in psych safe attire. Bed in low position. Call light in reach. Side rails up X 1. Security observing. Property removed, secured in belongings bag- Placed in locker #2. RN notified that patient meets Red Flag criteria. Door closed. Noise minimized. Visitors limited. 14:01 Report received from rn - psych. triage level #2, +si,+etoh, uncooperative \\T\\ this time. pjf The patient / caregiver is instructed regarding the plan of care and ED course. 14:32 Triage Initiated jc4 14:35 Patient visited by Katie Cunha RN. jc4 14:44 [facility] Payment Agreement was scanned into [email or web address] and attached to record. mm15 14:50 Acetaminophen Level Sent. jc4 14:50 Basic Metabolic Profile Sent. jc4 14:50 Complete Blood Count Sent. jc4 14:50 HCG,Serum Qualitative Sent. jc4 14:51 Liver Profile Sent. jc4 14:51 Salicylate Level Sent. jc4 14:51 Thyroid Stimulating Hormone Sent. jc4 15:02 Patient visited by Chauncey Ruffin Security Aide. pjf 15:11 Primary Nurse role handed off by Katie Cunha RN jc4 15:28 Patient visited by Maritza Romo RN. ead 15:41 Patient visited by Chauncey Ruffin Security Aide. pjf 15:44 Psych Safety Check: Location: Psych Room. Visual Assessment: Sleeping, Medicated. pjf 16:01 Patient visited by Chauncey Ruffin Security Aide. pjf 16:20 Patient visited by Chauncey Ruffin Security Aide. pjf 16:21 Drug Eval Toxicology ED Only Sent. ead 16:48 Patient visited by Maritza Romo RN. ead 16:51 Patient visited by Fermin Houser. rn1 17:00 Patient visited by Fermin Houser. rn1 17:27 Patient visited by Chauncey Ruffin Security Aide. pjf 17:33 Patient visited by Chauncey Ruffin Security Aide. pjf 17:35 Patient visited by Chauncey Ruffin Security Aide. pjf 17:57 Patient visited by Chauncey Ruffin Security Aide. pjf 18:13 Patient visited by Chauncey Ruffin Security Aide. pjf 18:29 Patient visited by Chauncey Ruffin Security Aide. pjf 18:46 Patient visited by Chauncey Ruffin Security Aide. pjf 19:01 Giovana King LPN is Primary Nurse. slm 19:07 Patient visited by Chauncey Ruffin Security Aidbrady. pjf 19:19 Patient visited by Chauncey Ruffin Security Aidbrady. pjf 19:22 Patient visited by Giovana King LPN. slm 19:37 Patient visited by Abran Gracia. mas 19:47 Patient visited by Abran Gracia. mas 20:02 Patient visited by Abran Gracia. mas 20:15 Patient visited by Abran Gracia. mas 20:30 Patient visited by Abran Gracia. mas 20:43 Patient visited by Giovana King LPN. slm 21:25 Patient visited by Giovana King LPN. slm 21:30 Patient visited by Abran Gracia. mas 21:31 POTASSIUM LEVEL Sent. slm 21:32 Patient visited by Giovana King LPN. slm 21:42 Patient visited by Giovana King LPN. slm 21:47 Patient visited by Giovana King LPN. slm 22:04 Alexey Noyola is Hospitalizing Provider. pc 22:11 Patient visited by Giovana King LPN. slm 22:23 Patient visited by Giovana King LPN. slm 22:27 Patient visited by Abran Gracia. mas 22:30 Patient visited by Abran Gracia. mas 22:45 No IV's were initiated during this patient's visit. No procedures done that require slm assistance. Labs drawn. (by ED staff). Sent per order to lab. 22:46 Patient visited by Giovana King LPN. slm Restraints: 14:02 Restraint order obtained from Thom Patterson MD jc4 14:02 Implementation: The following less restrictive methods were implemented: calming interaction with one-on-one intervention, determine cause of behavior, frequent exercise and/or ambulation, allow patient to ventilate feelings, verbal limit setting, Restraints applied at 14:02 14:02 Notification of restraint use: Charge Nurse. 14:15 Assessment: Respirations: Regular Skin Integrity: Intact Circulation: Unrestricted. jc4 ROM: patient has active range of motion Hygiene: contraindicated, Toileting: contraindicated, Hydration: contrainidicated, Food: Contraindicated, Mental Status: Agitated, Behavioral Interventions: Support/Comfort provided by staff. 14:30 Assessment: Respirations: Regular Skin Integrity: Intact Circulation: Unrestricted. jc4 ROM: active ROM Hygiene: contraindicated, Toileting: contraindicated, Hydration: contrainidicated, Food: Contraindicated, Mental Status: drowsy, Behavioral Interventions: Support/Comfort provided by staff, Pt is encouraged to verbalize feelings. 14:37 Patient's right ankleremoved from restraints. jc4 14:45 Assessment: Respirations: Regular Skin Integrity: Intact Circulation: Unrestricted. jc4 Hygiene: contraindicated, Toileting: contraindicated, Hydration: contrainidicated, Food: Contraindicated, Mental Status: drowsy. Pt cooperative with labs being obtained. 14:51 Patient's left ankleremoved from restraints. jc4 15:05 Restraints discontinued at 15:05 at the order of Thom Patterson MD jc4 Administered Medications: 14:02 Drug: -Haloperidol Lactate 10 mg [haloperidol lactate 5 mg/mL injection solution (2 jc4 mL)] Route: IM; Site: right gluteus; 14:02 Drug: LORazepam 2 mg [lorazepam 2 mg/mL injection solution (1 mL)] Route: IM; Site: jc4 right gluteus; 14:02 Drug: diphenhydrAMINE 50 mg [diphenhydramine 50 mg/mL injection solution (1 mL)] Route: jc4 IM; Site: right gluteus; Order Results: Lab Order: Acetaminophen Level; SPEC'M 09/02/16 14:49 Test: ACETAMINOPHEN LEVEL; Value: 2.1; Range: 10.0-30.0; Abnormal: Below low normal; Units: UG/ML; Status: F Lab Order: Basic Metabolic Profile; [facility]' 09/02/16 14:49 Test: GLUCOSE, FASTING; Value: 100; Range: 70-105; Units: MG/DL; Status: F Test: BLOOD UREA NITROGEN; Value: 6; Range: 7-18; Abnormal: Below low normal; Units: MG/DL; Status: F Test: CREATININE FOR GFR; Value: 0.85; Range: 0.55-1.02; Units: MG/DL; Status: F Test: SODIUM LEVEL; Range: 136-145; Units: MEQ/L; Status: I Test: POTASSIUM SERUM; Range: 3.5-5.1; Units: MEQ/L; Status: I Test: CHLORIDE LEVEL; Range: 98-107; Units: MEQ/L; Status: I Test: CARBON DIOXIDE LEVEL; Range: 21-32; Units: MEQ/L; Status: I Test: ANION GAP; Range: 8-16; Units: MEQ/L; Status: I Test: CALCIUM LEVEL; Range: 8.5-10.1; Units: MG/DL; Status: I Test: GLOMERULAR FILTRATION RATE; Value: > 60.0; Range: >58; Status: F Test: SODIUM LEVEL; Value: 142; Range: 136-145; Units: MEQ/L; Status: F Test: POTASSIUM SERUM; Value: 3.1; Range: 3.5-5.1; Abnormal: Below low normal; Units: MEQ/L; Status: F Test: CHLORIDE LEVEL; Value: 108; Range: 98-107; Abnormal: Above high normal; Units: MEQ/L; Status: F Test: CARBON DIOXIDE LEVEL; Value: 22; Range: 21-32; Units: MEQ/L; Status: F Test: ANION GAP; Value: 12; Range: 8-16; Units: MEQ/L; Status: F Test: CALCIUM LEVEL; Value: 8.0; Range: 8.5-10.1; Abnormal: Below low normal; Units: MG/DL; Status: F Test Note: ; Units are mL/min/1.73 m2 Chronic Kidney Disease Staging per NKF: Stage I & II GFR >=60 Normal to Mildly Decreased Stage III GFR 30-59 Moderately Decreased Stage IV GFR 15-29 Severely Decreased Stage V GFR <15 Very Little GFR Left ESRD GFR <15 on DOUPER Lab Order: Complete Blood Count; SPEC'M 09/02/16 14:49 Test: WHITE BLOOD COUNT; Value: 5.6; Range: 4.0-10.0; Units: K/mm3; Status: F Test: RED BLOOD COUNT; Value: 5.22; Range: 4.00-5.40; Units: M/mm3; Status: F Test: HEMOGLOBIN; Value: 13.6; Range: 12.0-16.0; Units: g/dl; Status: F Test: HEMATOCRIT; Value: 43.1; Range: 36.0-47.0; Units: %; Status: F Test: MEAN CORPUSCULAR VOLUME; Value: 82.7; Range: 80.0-96.0; Units: fl; Status: F Test: MEAN CORPUSCULAR HEMOGLOBIN; Value: 26.0; Range: 27.0-33.0; Abnormal: Below low normal; Units: pg; Status: F Test: MEAN CORPUSCULAR HGB CONC; Value: 31.5; Range: 32.0-36.5; Abnormal: Below low normal; Units: g/dl; Status: F Test: RED CELL DISTRIBUTION WIDTH; Value: 13.8; Range: 11.5-14.5; Units: %; Status: F Test: PLATELET COUNT, AUTOMATED; Value: 362; Range: 150-450; Units: k/mm3; Status: F Lab Order: Drug Eval Toxicology ED Only; SPEC'M 09/02/16 16:18 Test: AMPHETAMINES LEVEL URINE; Value: NEGATIVE; Range: NEGATIVE; Status: F Test: BARBITURATES URINE; Value: NEGATIVE; Range: NEGATIVE; Status: F Test: BENZODIAZEPINES URINE; Value: NEGATIVE; Range: NEGATIVE; Status: F Test: CANNABINOIDS URINE; Value: NEGATIVE; Range: NEGATIVE; Status: F Test: COCAINE METABOLITE URINE; Value: POSITIVE; Range: NEGATIVE; Abnormal: Above high normal; Status: F Test: METHADONE URINE; Value: NEGATIVE; Range: NEGATIVE; Status: F Test: OPIATES URINE; Value: NEGATIVE; Range: NEGATIVE; Status: F Test: TRICYCLIC ANTIDEPRESS URINE; Value: NEGATIVE; Range: NEGATIVE; Status: F Test Note: ; ALL PRESUMPTIVE POSITIVE FINDINGS ARE UNCONFIRMED NORMAL VALUES THRESHOLD IN NG/ML AMPHETAMINES 1000 METHAMPHETAMINES 1000 BARBITURATES 300 BENZODIAZEPINES 300 CANNABINOIDS (THC) 50 COCAINE METABOLITE 300 METHADONE 300 OPIATES 300 PHENCYCLIDINE 25 TRICYCLIC ANTIDEPRESSANTS 1000 RESULTS ARE FOR MEDICAL PURPOSES ONLY. ALL URINE SPECIMENS WILL BE SAVED FOR 3 DAYS. IF CONFIRMATION OF A PRESUMPTIVE POSTIVE SCREEN RESULT IS DESIRED, CALL CHEMISTRY ([phone]) AND REQUEST URINE TO BE SENT TO REFERENCE LAB. FOR A LIST OF CLOSELY RELATED COMPOUNDS PLEASE CALL THE LAB. Lab Order: Ethyl Alcohol (ethanol); [facility]' 09/02/16 14:49 Test: ETHYL ALCOHOL (ETHANOL); Value: 0.194; Range: 0.000-0.010; Abnormal: Above high normal; Units: %; Status: F Lab Order: HCG,Serum Qualitative; [facility]' 09/02/16 14:49 Test: HCG, SERUM QUALITATIVE; Value: NEGATIVE; Range: NEGATIVE; Status: F Lab Order: Liver Profile; [facility] 09/02/16 14:49 Test: AST/SGOT; Value: 140; Range: 15-37; Abnormal: Above high normal; Units: U/L; Status: F Test: ALT/SGPT; Value: 99; Range: 12-78; Abnormal: Above high normal; Units: U/L; Status: F Test: ALKALINE PHOSPHATASE; Value: 232; Range: 45-117; Abnormal: Above high normal; Units: U/L; Status: F Test: BILIRUBIN,TOTAL; Value: 0.4; Range: 0.2-1.0; Units: MG/DL; Status: F Test: BILIRUBIN,DIRECT; Value: 0.1; Range: 0.0-0.2; Units: MG/DL; Status: F Test: TOTAL PROTEIN; Value: 6.7; Range: 6.4-8.2; Units: GM/DL; Status: F Test: ALBUMIN; Value: 3.5; Range: 3.2-5.2; Units: GM/DL; Status: F Test: ALBUMIN/GLOBULIN RATIO; Value: 1.09; Range: 1.00-1.93; Status: F Lab Order: Salicylate Level; [facility] 09/02/16 14:49 Test: SALICYLATE LEVEL; Value: < 1.7; Range: 5.0-30.0; Abnormal: Below low normal; Units: MG/DL; Status: F Lab Order: Thyroid Stimulating Hormone; SPEC'M 09/02/16 14:49 Test: THYROID STIMULATING HORMONE; Value: 0.458; Range: 0.358-3.740; Units: uIU/ML; Status: F Lab Order: POTASSIUM LEVEL; SPEC'M 09/02/16 21:29 Test: POTASSIUM SERUM; Value: 3.6; Range: 3.5-5.1; Units: MEQ/L; Status: F Outcome: 22:05 Decision to Hospitalize by Provider. pc 22:44 Discharge Assessment: Patient awake, alert and oriented x 3. No cognitive and/or slm functional deficits noted. Patient verbalized understanding of disposition instructions. patient administered narcotics - yes. Pt provided with safe discharge. The following High Risk Discharge criteria are identified: None. Admitted to [facility] accompanied by tech, via wheelchair, with chart. Condition: stable. No special radiology studies were completed. 22:46 Patient left the ED. slm Signatures: Thom Patterson MD MD Ladonna Rivas, Reg Reg gb Laly, Chauncey, Security Aide Secjavierf Nura Mancia RN RN [id number] Petra Lewis, ANABEL PSA hm1 Katie Cunha, LISETH RN jc4 Abran Gracia Marlynn mm15 Giovana King,COMPUTER SUPPORT TECHNICIAN COMPUTER SUPPORT TECHNICIAN Maritza Aguilar RN RN ead Newman, Robert rn1 Corrections: (The following items were deleted from the chart) 15:00 14:43 Pt greeted and oriented to ED. Patient advised of names of staff involved in pjf care, location of call magallanes, wait times and NPO status. pjf 15:00 14:43 Accompanied by Law Enforcement, vanesa - (9.41), Patient has correct armband on for pjf positive identification. Placed in [facility] safe attire. Bed in low position. Call light in reach. Side rails up X 1. Security observing. pjf 15:00 14:43 Property removed, secured in belongings bag- Placed in locker #2. pjf pjf 15:00 14:43 RN notified that patient meets Red Flag criteria. pjf pjf 15:00 14:43 Door closed. Noise minimized. Visitors limited. pjf pjf 16:22 16:09 BP 129 / 68; Pulse 81bpm; Resp 17bpm; Pulse Ox 96% RA; pjf pjf 18:56 14:12 Home Meds: hydroxyzine HCl 100 mg Oral tab twice a day (Last Dose: Unknown); jc4 ead 18:56 14:12 Home Meds: oxycodone 5 mg Oral TbOr 1 tab every 4-6 hours (Last Dose: Unknown); ead [facility] 22:43 22:38 BP 142 / 88; Pulse 80bpm; Resp 18bpm; Pulse Ox 98%; Temp 96.4F Tympanic; slm slm MTDD
[2016-09-03] MEDS ORDERED: ZOLO100T PO (00:16)
[2016-09-03] MEDS ORDERED: TIZA4CAP3 PO (00:16)
[2016-09-03] MEDS ORDERED: LEVORA PO (00:16)
[2016-09-03] MEDS ORDERED: BUPR150T3 PO (00:16)
[2016-09-03] MEDS ORDERED: PERCOCET PO (00:16)
[2016-09-03] MEDS ORDERED: HYDR-4274 PO (00:16)
[2016-09-03 01:13] VITALS: BP 141/92
[2016-09-03] MEDS ORDERED: PERCOCET 5MG/325MG TAB PO PRN (02:15)
[2016-09-03] MEDS ORDERED: MAALOX 30 ML SUSP *UDC PO PRN (02:15)
[2016-09-03] MEDS ORDERED: hydrOXYzine 50 MG TAB PO SCH (02:15)
[2016-09-03] MEDS ORDERED: tiZANidine 4 MG TAB PO SCH (02:15)
[2016-09-03] MEDS ORDERED: MOM 30ML SUSPENSION UDC PO PRN (02:15)
[2016-09-03] MEDS ORDERED: hydrOXYzine 50 MG TAB PO PRN (03:00)
[2016-09-03 06:31] VITALS: BP 94/54
[2016-09-03] MEDS ORDERED: ENTER DRUG NAME HERE (PATIENT'S OWN MED) PO SCH (09:00)
[2016-09-03] MEDS ORDERED: buPROPion **XL** TABLET 150MG (WELLBUTRIN XL) PO SCH (09:00)
[2016-09-03] MEDS: SERTRALINE 100 MG TAB PO SCH (09:06)
[2016-09-03 18:00] VITALS: BP 130/78
[2016-09-04 06:28] VITALS: BP 159/91
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
[2016-09-04] MEDS: SERTRALINE 100 MG TAB PO SCH (08:43)
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
[2016-09-04 12:52] LABS: ALBUMIN 3.5 GM/DL (3.2-5.2); ALBUMIN/GLOBULIN RATIO 0.97 (1.00-1.93); ALKALINE PHOSPHATASE 181 U/L (45-117); ALT/SGPT 48 U/L (12-78); ANION GAP 10 MEQ/L (8-16); AST/SGOT 25 U/L (15-37); BILIRUBIN,TOTAL 0.6 MG/DL (0.2-1.0); BLOOD UREA NITROGEN 10 MG/DL (7-18); CALCIUM LEVEL 8.8 MG/DL (8.5-10.1); CARBON DIOXIDE LEVEL 27 MEQ/L (21-32); CHLORIDE LEVEL 106 MEQ/L (98-107); CREATININE FOR GFR 0.75 MG/DL (0.55-1.02); GLOMERULAR FILTRATION RATE > 60.0 (>58); GLUCOSE, FASTING 93 MG/DL (70-105); POTASSIUM SERUM 4.2 MEQ/L (3.5-5.1); SODIUM LEVEL 143 MEQ/L (136-145); TOTAL PROTEIN 7.1 GM/DL (6.4-8.2)
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
[2016-09-04 18:00] VITALS: BP 138/84
[2016-09-04] MEDS: traZODone 50 MG TAB PO PRN (20:13)
--- NOTE | 2016-09-04 23:47 | EDDOCDS ---
Physician Documentation [facility] Name: Aysha Garza Age: 40 yrs Sex: Female : 1975 Arrival Date: 09/02/2016 Time: 13:[address] [facility] Private MD: Disposition: 09/02 22:03 Critical Care: Critical care not applicable. pc Disposition: 09/02/16 22:05 Hospitalization ordered by Alexey Noyola for Inpatient Admission. Preliminary diagnosis are Suicidal ideations, Bipolar disorder, Alcohol abuse with intoxication. - Bed requested for Admit. - Status is Inpatient Admission. slm - Condition is Stable. - Problem is new. - Symptoms are unchanged. HPI: 13:55 This 40 yrs old Female presents to ER with complaints of Psych Problem. pc 13:55 The history is obtained from a police crime scene technician. A reliable history and/or examination pc was not able to be obtained, due to an uncooperative/violent patient. The patient presents to the emergency department with suicidal ideation, a history of substance abuse. At their worst, the symptoms were severe. In the emergency department, the symptoms are unchanged. She called police making suicidal threats. They found her intoxicated and denying she made any calls. She admitted to and then denied it. She became violent and was hand cuffed and brought to the ED for Psych eval. The patient has experienced similar episodes in the past, multiple times. The patient has been recently seen at the [facility], this week, for similar complaints. Historical: - Allergies: Ibuprofen (history of gastric bypas); - Home Meds: 1. tizanidine 4 mg oral cap as needed (Last dose: Unknown) 2. Percocet 5-325 mg Oral tab every 8-12 hours as needed 3. Zoloft 100 mg Oral tab once daily 4. Levora-28 0.15-0.03 mg oral tab once daily 5. bupropion HCl 150 mg Oral TbER once daily 6. hydroxyzine HCl 50 mg oral tab four times a day as needed (Last dose: Unknown) - PMHx: Bipolar disorder; Chronic Low Back Pain; GERD; OCD; PTSD; - PSHx: Gastric Bypass; Cholecystectomy; arm surgery; - The history from nurses notes was reviewed: but there are no nursing notes, or only partial notes available at the time of my charting. - Social history: Patient uses alcohol street drugs, cocaine, No barriers to communication noted, The patient speaks fluent [place]ian, Smoking status: Patient uses tobacco products, current some day smoker. - : The pt / caregiver states he / she is not on anticoagulants. Note all medical history obtained from 08/28/16 visit. - Immunization history:: unknown. - Exposure Risk Screening:: Unable to Assess. - Family history: Not pertinent. - Social history:: the patient smokes cigarettes the patient drinks alcohol, including recently. 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 The psychiatric and neurological components pc are also addressed in the HPI. Exam: 14:00 General Appearance: alert, uncooperative for examination swearing at staff, being pc restrained by police. 14:00 ENT: 14:00 Eyes: 14:00 Neck: The exam reveals no acute abnormalities. ROM is normal and painless. No nuchal rigidity is noted.. 14:00 Respiratory: breathing is even and unlabored, breath sounds are normal. 14:00 Cardiovascular: regular heart rhythm, tachycardia, 110bpm. 14:00 Extremities: The extremities have a grossly normal appearance. 14:00 Neuro: alert, oriented to person, place and time, no motor deficits. 14:00 Psych: mood is angry, hostile, non-communicative, affect is animated. Vital Signs: 14:11 4 14:26 BP 162 / 71; Pulse 137; Resp 20; Temp 99.8(TE); Pulse Ox 98% on R/A; jc4 14:27 Weight 40.37 kg / 89 lbs; Height 5 ft. 3 in. (160.02 cm); jc4 14:35 BP 160 / 102; Pulse 86; Resp 20; Pulse Ox 97% ; jc4 14:52 BP 154 / 98; Pulse 84; Resp 20; Pulse Ox 95% on R/A; jc4 15:06 BP 151 / 91; Pulse 81; Resp 20; Pulse Ox 96% on R/A; jc4 15:28 BP 169 / 94; Pulse 78; Resp 18; Pulse Ox 96% on R/A; ead 15:45 BP 129 / 68; Pulse 81; Resp 17; Pulse Ox 96% on R/A; pjf 18:47 BP 139 / 69; Pulse 112; Resp 16; Temp 96.(T); Pulse Ox 98% on R/A; ead 22:38 BP 142 / 88 (man/); Pulse 80; Resp 18; Temp 96.4(T); Pulse Ox 98% ; slm 14:27 Body Mass Index 15.77 (40.37 kg, 160.02 cm) jc4 14:11 Unable to obtain vital signs upon arrival jc4 MDM: 13:54 -Haloperidol Lactate 10 mg IM once ordered. pc 13:54 LORazepam 2 mg IM once ordered. pc 13:54 diphenhydrAMINE 50 mg IM once ordered. pc 13:54 Restraints, Adult: Chemical - Meds as ordered (poses imminent danger of self-harm). May pc use manual restraints to ensure safe admin. of meds. Pt. monitoring for min. of 2 hrs per RN policy. ordered. 13:54 The patient poses imminent danger of self harm, The patient requires both physical and pc chemical restraints. 14:00 Differential diagnosis: suicidal ideation, alcohol intoxication, violent and aggressive pc behavior. Plan: chemical restraints, labs, PFS eval. 14:11 Restraints, Adult: Mechanical - 4 points up to 1 hr (poses imminent danger of pc self-harm). May use manual restraints to secure restraint devices. Pt. monitoring per RN policy. ordered. 14:38 Financial registration complete. mm15 14:44 Consult PFS/PSA/Financial Representative: Patient's case requires discussion with on-call pc Psychiatrist ordered. 14:44 PSA/PFS to call Nursing Professional Driver, to enter patient data on [place] Safe Act if patient pc involuntarily admitted or transferred for SI or HI ordered. 14:44 Confirm accurate psychiatric medication list and times of last dosage ordered. pc 14:44 Detain Pt Until Medically/PFS Cleared ordered. pc 14:44 Acetaminophen Level Ordered. EDMS 14:44 Basic Metabolic Profile Ordered. EDMS 14:44 Complete Blood Count Ordered. EDMS 14:44 Drug Eval Toxicology ED Only Ordered. EDMS 14:44 Ethyl Alcohol (ethanol) Ordered. EDMS 14:44 HCG,Serum Qualitative Ordered. EDMS 14:44 Liver Profile Ordered. EDMS 14:44 Salicylate Level Ordered. EDMS 14:44 Thyroid Stimulating Hormone Ordered. EDMS 14:44 [facility] Payment Agreement was scanned into Backpack and attached to record. mm15 15:05 Discontinue Restraint / Seclusion ordered. jc4 16:14 Acetaminophen Level Reviewed. pc 16:14 Basic Metabolic Profile Reviewed. pc 16:14 Complete Blood Count Reviewed. pc 16:14 Ethyl Alcohol (ethanol) Reviewed. pc 16:14 Liver Profile Reviewed. pc 16:14 Salicylate Level Reviewed. pc 16:14 HCG,Serum Qualitative Reviewed. pc 16:14 Thyroid Stimulating Hormone Reviewed. pc 17:13 REGULAR DIET PLASTIC RINALDI+DIET ordered. EDMS 17:15 Drug Eval Toxicology ED Only Reviewed. pc 20:54 Consult PFS/PSA/Financial Representative: Patient's case requires discussion with on-call hm1 Psychiatrist complete. 20:54 PSA/PFS to call Nursing Professional Driver, to enter patient data on [place] Safe [place] if patient hm1 involuntarily admitted or transferred for SI or HI complete. 21:06 Redraw Labs ordered. pc 21:07 Redraw Labs complete. jlm 21:08 POTASSIUM LEVEL Ordered. EDMS 22:03 POTASSIUM LEVEL Reviewed. pc 22:03 The patient has been medically cleared for psychiatric evaluation, admission and/or pc transfer. [place] Safe Act reporting: The patient poses a significant risk to self or others, and PSA/PFS has notified the Nursing Professional Driver and he/she will complete the required file clerk data entry. Data reviewed: old medical records, vital signs, nurses notes, lab test results. Test interpretation: LAB - all labs as ordered have been reviewed, interpreted and considered in the overall management of the clinical presentation;. The patient has been re-examined and re-evaluated. There is no appreciated change of the patient's symptoms at this time. Disposition: The historical points, examination findings, and any diagnostic results supporting the provided diagnosis, were discussed with the patient or legal guardian. The need for further work-up and/or treatment in the hospital was explained. 22:30 Admit to IMHU: ordered. EDMS Administered Medications: 14:02 Drug: -Haloperidol Lactate 10 mg [haloperidol lactate 5 mg/mL injection solution (2 jc4 mL)] Route: IM; Site: right gluteus; 14:02 Drug: LORazepam 2 mg [lorazepam 2 mg/mL injection solution (1 mL)] Route: IM; Site: jc4 right gluteus; 14:02 Drug: diphenhydrAMINE 50 mg [diphenhydramine 50 mg/mL injection solution (1 mL)] Route: jc4 IM; Site: right gluteus; Signatures: Dispatcher [employer] EDThom Lazaro MD MD pc Petra Lewis, PSA PSA hm1 Katie Cunha RN RN jc4 Denise Ewing mm15 Giovana King LPN LPN slm Dunaway, Emily, RN RN ead Mitchell, Jessie, Business Analyst [employer] [facility] The chart was reviewed and I authenticate all verbal orders and agree with the evaluation and treatment provided.Corrections: (The following items were deleted from the chart) 18:56 14:12 Home Meds: hydroxyzine HCl 100 mg Oral tab twice a day (Last Dose: Unknown); jc4 ead 18:56 14:12 Home Meds: oxycodone 5 mg Oral TbOr 1 tab every 4-6 hours (Last Dose: Unknown); ead jc4 Attachments: 14:44 [facility] Payment Agreement mm15 [facility]
--- NOTE | 2016-09-04 23:48 | EDDOCDS ---
Nurse's Notes [facility] Name: Aysha Garza Age: 40 yrs Sex: Female : 1975 Arrival Date: 09/02/2016 Time: 13:[address] MD: Diagnosis: Suicidal ideations;Bipolar disorder;Alcohol abuse with intoxication Presentation: 09/02 13:51 Presenting complaint: [employer] states that patient called 911 stating that she was going to [facility] kill herself. Neighbor called 911 after her stating that patient had a knife. Pt uncooperative. Yelling upon arrival. States, "I don't want to be here. I don't trust the doctors here." States can't sleep at night and has pain. States is "scared to sleep. Have had a lot to drink. Impression Printer make me paranoid". 14:32 Mental Health Triage Level: Level 3: The patient displays assaultive behavior and at 4 risk for imminent acting out. Adult Sepsis Screening: The patient does not have new or worsening altered mentation. Patient's respiratory rate is less than 22. Systolic blood pressure is greater than 100. Patient has a qSOFA score of 0- Negative Sepsis Screen. Mental Health Triage Level: Level 3:. Suicide/Homicide risk assessment- The patient reports that he/she has a recent or current history of substance abuse. The patient reports that he/she has adequate social support. Status: Patient is not a nursing services manager or dependent. Transition of care: patient was not received from another setting of care. 14:32 Acuity: TIFFANIE Level 3 [facility] 14:32 Method Of Arrival: Police Car [facility] Triage Assessment: 14:12 General: Appears distressed, Behavior is uncooperative, screaming, unwilling to stay in jc4 room. Yelling at staff, using foul language. Pain: Unable to use pain scale. uncooperative. The patient is triaged at the bedside. See Assessment in Nurses Notes section of ED record. 22:45 HIV screening NA for this visit Offered previously. aurea COSTUME MISTRESS: 14:17 LMP 08/28/2016, Information obtained from previous visit on 08/28/16 [facility] Historical: - Allergies: Ibuprofen (history of gastric bypas); - Home Meds: 1. tizanidine 4 mg oral cap as needed (Last dose: Unknown) 2. Percocet 5-325 mg Oral tab every 8-12 hours as needed 3. Zoloft 100 mg Oral tab once daily 4. Levora-28 0.15-0.03 mg oral tab once daily 5. bupropion HCl 150 mg Oral TbER once daily 6. hydroxyzine HCl 50 mg oral tab four times a day as needed (Last dose: Unknown) - PMHx: Bipolar disorder; Chronic Low Back Pain; GERD; OCD; PTSD; - PSHx: Gastric Bypass; Cholecystectomy; arm surgery; - The history from nurses notes was reviewed: but there are no nursing notes, or only partial notes available at the time of my charting. - Social history: Patient uses alcohol street drugs, cocaine, No barriers to communication noted, The patient speaks fluent Faroese, Smoking status: Patient uses tobacco products, current some day smoker. - : The pt / caregiver states he / she is not on anticoagulants. Note all medical history obtained from 08/28/16 visit. - Immunization history:: unknown. - Exposure Risk Screening:: Unable to Assess. - Family history: Not pertinent. - Social history:: the patient smokes cigarettes the patient drinks alcohol, including recently. Screenin:29 Screening information is obtained from prior medical records. Fall risk: At risk due to jc4 apparent chemical impairment, The following interventions are performed due to a positive Fall Risk Screen: Fall Risk is added to Special Handling on the patient Summary Screen. A Fall Risk Bracelet was applied to the patient. Side Rails are placed in the up position. A Call Magallanes is given with instruction to call for help when getting out of bed. Assistance ADL's: requires no assistance with activities of daily living. Abuse/DV Screen: The patient / caregiver reports he/she is: not in a situation that causes fear, pain or injury. Nutritional screening: No deficits noted. Advance Directives: Currently, there is no health care proxy. There is no active DNR order. There is no living will. There is no Power of Sterilizer Operator. home support is adequate. 14:30 Fall Risk. jc4 Assessment: 14:19 General: Pt uncooperative upon arrival to department. Unwilling to listen to staff jc4 explanations. Screaming. Getting in staff's faces. States, "I just want to go home. I've got my kids, and that 's all I got". Using foul language. States, "I'm suing you, all of you". Color pink, skin warm and dry. Refuses staff to get near her. States, "I didn't hurt myself, these cuts are from Sunday, pointing to inner left forearm. "I know how to cut". Pt requires presence of 4 [place] [employer] personnel. 14:27 General: Pt lying on stretcher with head elevated. Color pink, skin warm and dry. jc4 Respirations easy and full. Security continuing to observe patient. 15:00 General: Appears in no apparent distress, Behavior is cooperative, pt appears to be ead resting. Respiratory: Airway is patent Respiratory effort is even, unlabored. Derm: Skin is pink, warm & dry. 15:15 General: Appears in no apparent distress, to be sleeping. Respiratory: Airway is patent ead Respiratory effort is even, unlabored. Derm: Skin is pink, warm & dry. 16:00 General: Appears in no apparent distress, to be sleeping. Respiratory: Airway is patent ead Respiratory effort is even, unlabored. Derm: Skin is pink, warm & dry. 16:48 General: Appears in no apparent distress, to be sleeping. Cardiovascular:. Respiratory: ead Airway is patent Respiratory effort is even, unlabored. Derm: Skin is pink, warm & dry. 18:03 General: Appears in no apparent distress, comfortable, Behavior is appropriate for age, ead cooperative, pt sitting up eating dinner, confirms medication list is accurate. Medications discussed with Dr. Patterson. He states pt does not need home medication doses this evening. . 18:47 General: Appears in no apparent distress, comfortable, Behavior is cooperative, pt ead finished with dinner, lying down with eyes closed, responds to verbal stimuli. . Respiratory: Airway is patent Respiratory effort is even, unlabored. Derm: Skin is pink, warm & dry. 18:57 General: medication list verified by Radha Mayes. ead 19:22 General: Appears in no apparent distress, comfortable, to be sleeping. Behavior is slm quiet. General: pt asleep on stretcher security observing . Respiratory: Airway is patent Respiratory effort is even, unlabored. Derm: Skin is pink, warm & dry. 20:20 General: Appears in no apparent distress, comfortable, Behavior is appropriate for age, slm cooperative, pleasant. General: pt resting on stretcher denies needs security observing . Pain: Denies pain. Respiratory: Airway is patent Respiratory effort is even, unlabored. Derm: Skin is pink, warm & dry. 21:20 General: Appears in no apparent distress, comfortable, Behavior is appropriate for age, slm cooperative, pleasant. General: pt resting on stretcher security . Pain: Denies pain. Respiratory: Airway is patent Respiratory effort is even, unlabored. :. Derm: Skin is pink, warm & dry. 22:22 General: Appears in no apparent distress, comfortable, Behavior is cooperative. slm General: pt resting on stretcher denies needs security observing . Respiratory: Airway is patent Respiratory effort is even, unlabored, Respiratory pattern is regular. 22:37 General: Appears in no apparent distress, comfortable, Behavior is cooperative. slm General: pt resting on stretcher security observing . Pain: Denies pain. Respiratory: Airway is patent Respiratory effort is even, unlabored. Derm: Skin is pink, warm & dry. Mental Health Eval: 20:27 Mental health consult is initiated at 20:30. Status: The patient is not a 1 nursing services manager or dependent. [facility] Behavioral Health: The patient is not an established patient of [facility]. Referral Information: Evaluation referral is generated by a police agency: [employer]. The patient was referred for evaluation because Officer Roll reports that pt called 911 reporting that she was going to kill herself. Shortly after that call pt's neighbor called 911 stating that pt was threatening to harm herself and had a knife. Subjective: The patients chief complaint is Pt reports that she was telling her neighbor about her ED visit earlier in the week and he "took it the wrong way" and called 911 reporting that she was suicidal today. Delusions are denied. Patient's mood is irritable, Hallucinations are denied. Pt is very vague and guarded at this time stating that there is no reason for her being here today. She denies making the call to 911 earlier today and states that it was her neighbor who called. Pt admits to making suicidal statements on Sunday (08/28/16) and states that she cut her arm on that day as well, however denies being suicidal at this time. Pt initially reports that the neighbor is a friend of her's whom she was confiding in, however when asked if we could speak to him about their conversation earlier that led to the police call she stated that they "barely know each other" and he's just a neighbor. Pt reports a history of Bipolar, PTSD, Anxiety, and OCD. Pt reports that she had been receiving treatment about 3 years ago, however she stopped going. She has scheduled an intake appointment for [facility], which she indicates is Sunday (09/04/16). Subjective: Pt reports a history of substance abuse, states that she uses cocaine occasionally and drinks alcohol "on weekends". She reports that she is interested in addictions treatment, she states that she is hoping to begin that after she starts at [facility]. Mental Health history: anxiety, Bipolar Disorder, post-traumatic stress disorder, Mental Health Admissions: None. Current Outpatient Mental Health Services: None. Current living environment is Family / Home Support: pt lives alone, states that her ex- is her primary source of support. He currently lives in [place] with their 2 children, ages 17 and 14. Patient presents to Emergency Department with the following symptoms within the past 2 weeks: agitation, alcohol abuse, anger, depressed mood, labile mood, poor impulse control, Patient has mutilated themselves by cutting their left arm sleep disturbance - insomnia, suicidal ideation with plan for cutting. Substance abuse: Patient uses beer, daily. Mental status exam: Patients appearance is appropriate, Patient's behavior is superficially cooperative Speech is pressured. Affect is labile. Mood is irritable. Hallucinations are denied. Appetite is normal. Memory is good. Energy level is normal. Content of thought is normal. Thought process is intact. Cognitive level is oriented to person, place, time and situation Patient's insight is poor. Judgement is poor. Rapport with interviewer is guarded. Suicidal Ideation present with a plan to kill self by cutting. Homicidal ideation is not present. 22:26 Disposition: Medically cleared for disposition by Thom Patterson MD Psychiatric Consult hm1 is performed by phone with Dr Alexey Noyola. [facility] Admission Criteria: The patient is experiencing suicidal ideation. The patient displays self-mutilative behavior. The patient requires continuous observation and/or control to protect self, others or property. The patient's care requires a multi-modal treatment plan under close supervision and coordination due to the complexity and severity of the patient's symptoms. The patient requires administration and monitoring of psychoactive medications by skilled medical providers due to the side effects of the psychoactive medications or significant dosage adjustments. Legal Status: Patient's legal status will be Emergency admission: 39. [place] Safe Act: [place] Safe Act is applicable to this patient. The patient poses a risk to self or other and the Nursing Ornament Stapler has been notified. He/She will enter the patient's data. DSM-V Differential Diagnosis: Bipolar I Disorder (F31.0) Current or most recent episode unspecified (F31.9). Awaiting: transfer to [facility]. 23:01 Insurance Pre-Certification: approved by: [facility] for 3 days, review on 09/04/16, [place] [address] [id number]. Vital Signs: 14:11 jc4 14:26 BP 162 / 71; Pulse 137; Resp 20; Temp 99.8(TE); Pulse Ox 98% on R/A; jc4 14:27 Weight 40.37 kg; Height 5 ft. 3 in. (160.02 cm); jc4 14:35 BP 160 / 102; Pulse 86; Resp 20; Pulse Ox 97% ; jc4 14:52 BP 154 / 98; Pulse 84; Resp 20; Pulse Ox 95% on R/A; jc4 15:06 BP 151 / 91; Pulse 81; Resp 20; Pulse Ox 96% on R/A; jc4 15:28 BP 169 / 94; Pulse 78; Resp 18; Pulse Ox 96% on R/A; ead 15:45 BP 129 / 68; Pulse 81; Resp 17; Pulse Ox 96% on R/A; pjf 18:47 BP 139 / 69; Pulse 112; Resp 16; Temp 96.(T); Pulse Ox 98% on R/A; ead 22:38 BP 142 / 88 (man/); Pulse 80; Resp 18; Temp 96.4(T); Pulse Ox 98% ; m 14:27 Body Mass Index 15.77 (40.37 kg, 160.02 cm) jc4 14:11 Unable to obtain vital signs upon arrival 4 Vitals: 14:11 Log In time N/A- police car arrival. [facility] ED Course: 13:42 Patient visited by Barnhardt, Ladonna, Reg. gb 13:42 Patient moved to Waiting gb 13:44 Katie Cunha, RN is Primary Nurse. mlb1 13:44 Patient moved to [facility] mlb1 13:47 Thom Patterson MD is Attending Physician. pc 13:53 Patient visited by Thom Patterson MD. pc 14:00 Pt greeted and oriented to ED. Patient advised of names of staff involved in care, pjf location of call magallanes, wait times and NPO status. Accompanied by Law Enforcement, [employer] - (9.41), Patient has correct armband on for positive identification. Placed in psych safe attire. Bed in low position. Call light in reach. Side rails up X 1. Security observing. Property removed, secured in belongings bag- Placed in locker #2. RN notified that patient meets Red Flag criteria. Door closed. Noise minimized. Visitors limited. 14:01 Report received from rn - psych. triage level #2, +si,+etoh, uncooperative \\T\\ this time. pjf The patient / caregiver is instructed regarding the plan of care and ED course. 14:32 Triage Initiated jc4 14:35 Patient visited by Katie Cunha RN. jc4 14:44 [facility] Payment Agreement was scanned into [employer] and attached to record. mm15 14:50 Acetaminophen Level Sent. jc4 14:50 Basic Metabolic Profile Sent. jc4 14:50 Complete Blood Count Sent. jc4 14:50 HCG,Serum Qualitative Sent. jc4 14:51 Liver Profile Sent. jc4 14:51 Salicylate Level Sent. jc4 14:51 Thyroid Stimulating Hormone Sent. jc4 15:02 Patient visited by Chauncey Ruffin Security Aide. pjf 15:11 Primary Nurse role handed off by Katie Cunha, LISETH jc4 15:28 Patient visited by Maritza Romo,LISETH. ead 15:41 Patient visited by Chauncey Ruffin Security Aide. pjf 15:44 Psych Safety Check: Location: Psych Room. Visual Assessment: Sleeping, Medicated. pjf 16:01 Patient visited by Chauncey Ruffin Security Aide. pjf 16:20 Patient visited by Chauncey Ruffin Security Aide. pjf 16:21 Drug Eval Toxicology ED Only Sent. ead 16:48 Patient visited by Maritza Romo,LISETH. ead 16:51 Patient visited by Fermin Houser. rn1 17:00 Patient visited by Fermin Houser. rn1 17:27 Patient visited by Chauncey Ruffin Security Aide. pjf 17:33 Patient visited by Chauncey Ruffin, Security Aide. pjf 17:35 Patient visited by Chauncey Ruffin, Security Aide. pjf 17:57 Patient visited by Chauncey Ruffin Security Aide. pjf 18:13 Patient visited by Chauncey Ruffin, Security Aide. pjf 18:29 Patient visited by Chauncey Ruffin, Security Aide. pjf 18:46 Patient visited by Chauncey Ruffin Security Aide. pjf 19:01 Giovana King LPN is Primary Nurse. slm 19:07 Patient visited by Chauncey Ruffin Security Aide. pjf 19:19 Patient visited by Chauncey Ruffin Security Aide. pjf 19:22 Patient visited by Giovana King LPN. slm 19:37 Patient visited by Abran Gracia. mas 19:47 Patient visited by Abran Gracia. mas 20:02 Patient visited by Abran Gracia. mas 20:15 Patient visited by Abran Gracia. mas 20:30 Patient visited by Abran Gracia. mas 20:43 Patient visited by Giovana King LPN. slm 21:25 Patient visited by Giovana King LPN. slm 21:30 Patient visited by Abran Gracia. mas 21:31 POTASSIUM LEVEL Sent. slm 21:32 Patient visited by Giovana King LPN. slm 21:42 Patient visited by Givoana King LPN. slm 21:47 Patient visited by Giovana King LPN. slm 22:04 Alexey Noyola is Hospitalizing Provider. pc 22:11 Patient visited by Giovana King LPN. slm 22:23 Patient visited by Giovana King LPN. slm 22:27 Patient visited by Abran Gracia. mas 22:30 Patient visited by Abran Gracia. mas 22:45 No IV's were initiated during this patient's visit. No procedures done that require slm assistance. Labs drawn. (by ED staff). Sent per order to lab. 22:46 Patient visited by Giovana King LPN. slm Restraints: 14:02 Restraint order obtained from Thom Patterson MD jc4 14:02 Implementation: The following less restrictive methods were implemented: calming interaction with one-on-one intervention, determine cause of behavior, frequent exercise and/or ambulation, allow patient to ventilate feelings, verbal limit setting, Restraints applied at 14:02 14:02 Notification of restraint use: Charge Nurse. 14:15 Assessment: Respirations: Regular Skin Integrity: Intact Circulation: Unrestricted. jc4 ROM: patient has active range of motion Hygiene: contraindicated, Toileting: contraindicated, Hydration: contrainidicated, Food: Contraindicated, Mental Status: Agitated, Behavioral Interventions: Support/Comfort provided by staff. 14:30 Assessment: Respirations: Regular Skin Integrity: Intact Circulation: Unrestricted. jc4 ROM: active ROM Hygiene: contraindicated, Toileting: contraindicated, Hydration: contrainidicated, Food: Contraindicated, Mental Status: drowsy, Behavioral Interventions: Support/Comfort provided by staff, Pt is encouraged to verbalize feelings. 14:37 Patient's right ankleremoved from restraints. jc4 14:45 Assessment: Respirations: Regular Skin Integrity: Intact Circulation: Unrestricted. jc4 Hygiene: contraindicated, Toileting: contraindicated, Hydration: contrainidicated, Food: Contraindicated, Mental Status: drowsy. Pt cooperative with labs being obtained. 14:51 Patient's left ankleremoved from restraints. jc4 15:05 Restraints discontinued at 15:05 at the order of Thom Patterson MD jc4 Administered Medications: 14:02 Drug: -Haloperidol Lactate 10 mg [haloperidol lactate 5 mg/mL injection solution (2 jc4 mL)] Route: IM; Site: right gluteus; 14:02 Drug: LORazepam 2 mg [lorazepam 2 mg/mL injection solution (1 mL)] Route: IM; Site: jc4 right gluteus; 14:02 Drug: diphenhydrAMINE 50 mg [diphenhydramine 50 mg/mL injection solution (1 mL)] Route: jc4 IM; Site: right gluteus; Order Results: Lab Order: Acetaminophen Level; SPEC'M 09/02/16 14:49 Test: ACETAMINOPHEN LEVEL; Value: 2.1; Range: 10.0-30.0; Abnormal: Below low normal; Units: UG/ML; Status: F Lab Order: Basic Metabolic Profile; SPEC'M 09/02/16 14:49 Test: GLUCOSE, FASTING; Value: 100; Range: 70-105; Units: MG/DL; Status: F Test: BLOOD UREA NITROGEN; Value: 6; Range: 7-18; Abnormal: Below low normal; Units: MG/DL; Status: F Test: CREATININE FOR GFR; Value: 0.85; Range: 0.55-1.02; Units: MG/DL; Status: F Test: SODIUM LEVEL; Range: 136-145; Units: MEQ/L; Status: I Test: POTASSIUM SERUM; Range: 3.5-5.1; Units: MEQ/L; Status: I Test: CHLORIDE LEVEL; Range: 98-107; Units: MEQ/L; Status: I Test: CARBON DIOXIDE LEVEL; Range: 21-32; Units: MEQ/L; Status: I Test: ANION GAP; Range: 8-16; Units: MEQ/L; Status: I Test: CALCIUM LEVEL; Range: 8.5-10.1; Units: MG/DL; Status: I Test: GLOMERULAR FILTRATION RATE; Value: > 60.0; Range: >58; Status: F Test: SODIUM LEVEL; Value: 142; Range: 136-145; Units: MEQ/L; Status: F Test: POTASSIUM SERUM; Value: 3.1; Range: 3.5-5.1; Abnormal: Below low normal; Units: MEQ/L; Status: F Test: CHLORIDE LEVEL; Value: 108; Range: 98-107; Abnormal: Above high normal; Units: MEQ/L; Status: F Test: CARBON DIOXIDE LEVEL; Value: 22; Range: 21-32; Units: MEQ/L; Status: F Test: ANION GAP; Value: 12; Range: 8-16; Units: MEQ/L; Status: F Test: CALCIUM LEVEL; Value: 8.0; Range: 8.5-10.1; Abnormal: Below low normal; Units: MG/DL; Status: F Test Note: ; Units are mL/min/1.73 m2 Chronic Kidney Disease Staging per NKF: Stage I & II GFR >=60 Normal to Mildly Decreased Stage III GFR 30-59 Moderately Decreased Stage IV GFR 15-29 Severely Decreased Stage V GFR <15 Very Little GFR Left ESRD GFR <15 on AEROPLANE PILOT Lab Order: Complete Blood Count; SPEC'M 09/02/16 14:49 Test: WHITE BLOOD COUNT; Value: 5.6; Range: 4.0-10.0; Units: K/mm3; Status: F Test: RED BLOOD COUNT; Value: 5.22; Range: 4.00-5.40; Units: M/mm3; Status: F Test: HEMOGLOBIN; Value: 13.6; Range: 12.0-16.0; Units: g/dl; Status: F Test: HEMATOCRIT; Value: 43.1; Range: 36.0-47.0; Units: %; Status: F Test: MEAN CORPUSCULAR VOLUME; Value: 82.7; Range: 80.0-96.0; Units: fl; Status: F Test: MEAN CORPUSCULAR HEMOGLOBIN; Value: 26.0; Range: 27.0-33.0; Abnormal: Below low normal; Units: pg; Status: F Test: MEAN CORPUSCULAR HGB CONC; Value: 31.5; Range: 32.0-36.5; Abnormal: Below low normal; Units: g/dl; Status: F Test: RED CELL DISTRIBUTION WIDTH; Value: 13.8; Range: 11.5-14.5; Units: %; Status: F Test: PLATELET COUNT, AUTOMATED; Value: 362; Range: 150-450; Units: k/mm3; Status: F Lab Order: Drug Eval Toxicology ED Only; SPEC'M 09/02/16 16:18 Test: AMPHETAMINES LEVEL URINE; Value: NEGATIVE; Range: NEGATIVE; Status: F Test: BARBITURATES URINE; Value: NEGATIVE; Range: NEGATIVE; Status: F Test: BENZODIAZEPINES URINE; Value: NEGATIVE; Range: NEGATIVE; Status: F Test: CANNABINOIDS URINE; Value: NEGATIVE; Range: NEGATIVE; Status: F Test: COCAINE METABOLITE URINE; Value: POSITIVE; Range: NEGATIVE; Abnormal: Above high normal; Status: F Test: METHADONE URINE; Value: NEGATIVE; Range: NEGATIVE; Status: F Test: OPIATES URINE; Value: NEGATIVE; Range: NEGATIVE; Status: F Test: TRICYCLIC ANTIDEPRESS URINE; Value: NEGATIVE; Range: NEGATIVE; Status: F Test Note: ; ALL PRESUMPTIVE POSITIVE FINDINGS ARE UNCONFIRMED NORMAL VALUES THRESHOLD IN NG/ML AMPHETAMINES 1000 METHAMPHETAMINES 1000 BARBITURATES 300 BENZODIAZEPINES 300 CANNABINOIDS (THC) 50 COCAINE METABOLITE 300 METHADONE 300 OPIATES 300 PHENCYCLIDINE 25 TRICYCLIC ANTIDEPRESSANTS 1000 RESULTS ARE FOR MEDICAL PURPOSES ONLY. ALL URINE SPECIMENS WILL BE SAVED FOR 3 DAYS. IF CONFIRMATION OF A PRESUMPTIVE POSTIVE SCREEN RESULT IS DESIRED, CALL CHEMISTRY ([phone]) AND REQUEST URINE TO BE SENT TO REFERENCE LAB. FOR A LIST OF CLOSELY RELATED COMPOUNDS PLEASE CALL THE LAB. Lab Order: Ethyl Alcohol (ethanol); [facility] 09/02/16 14:49 Test: ETHYL ALCOHOL (ETHANOL); Value: 0.194; Range: 0.000-0.010; Abnormal: Above high normal; Units: %; Status: F Lab Order: HCG,Serum Qualitative; [facility] 09/02/16 14:49 Test: HCG, SERUM QUALITATIVE; Value: NEGATIVE; Range: NEGATIVE; Status: F Lab Order: Liver Profile; [facility] 09/02/16 14:49 Test: AST/SGOT; Value: 140; Range: 15-37; Abnormal: Above high normal; Units: U/L; Status: F Test: ALT/SGPT; Value: 99; Range: 12-78; Abnormal: Above high normal; Units: U/L; Status: F Test: ALKALINE PHOSPHATASE; Value: 232; Range: 45-117; Abnormal: Above high normal; Units: U/L; Status: F Test: BILIRUBIN,TOTAL; Value: 0.4; Range: 0.2-1.0; Units: MG/DL; Status: F Test: BILIRUBIN,DIRECT; Value: 0.1; Range: 0.0-0.2; Units: MG/DL; Status: F Test: TOTAL PROTEIN; Value: 6.7; Range: 6.4-8.2; Units: GM/DL; Status: F Test: ALBUMIN; Value: 3.5; Range: 3.2-5.2; Units: GM/DL; Status: F Test: ALBUMIN/GLOBULIN RATIO; Value: 1.09; Range: 1.00-1.93; Status: F Lab Order: Salicylate Level; SPEC'M 09/02/16 14:49 Test: SALICYLATE LEVEL; Value: < 1.7; Range: 5.0-30.0; Abnormal: Below low normal; Units: MG/DL; Status: F Lab Order: Thyroid Stimulating Hormone; SPEC'M 09/02/16 14:49 Test: THYROID STIMULATING HORMONE; Value: 0.458; Range: 0.358-3.740; Units: uIU/ML; Status: F Lab Order: POTASSIUM LEVEL; SPEC'M 09/02/16 21:29 Test: POTASSIUM SERUM; Value: 3.6; Range: 3.5-5.1; Units: MEQ/L; Status: F Outcome: 22:05 Decision to Hospitalize by Provider. 22:44 Discharge Assessment: Patient awake, alert and oriented x 3. No cognitive and/or slm functional deficits noted. Patient verbalized understanding of disposition instructions. patient administered narcotics - yes. Pt provided with safe discharge. The following High Risk Discharge criteria are identified: None. Admitted to [facility] accompanied by [facility], via wheelchair, with chart. Condition: stable. No special radiology studies were completed. 22:46 Patient left the ED. [facility] Signatures: Thom Patterson MD MD pc Barnhardt, Gloria, Chauncey Fish, Aide LesliNura Jones RN RN mlb1 Petra Lewis, PSA PSA hm1 Katie Cunha RN RN jc4 Abran Gracia Marlynn mm15 Giovana King LPN LPN slm Dunaway, Emily, RN RN ead Newman, Robert rn1 Corrections: (The following items were deleted from the chart) 15:00 14:43 Pt greeted and oriented to ED. Patient advised of names of staff involved in pjf care, location of call magallanes, wait times and NPO status. pjf 15:00 14:43 Accompanied by Law Enforcement, vanesa - (9.41), Patient has correct armband on for pjf positive identification. Placed in psych safe attire. Bed in low position. Call light in reach. Side rails up X 1. Security observing. pjf 15:00 14:43 Property removed, secured in belongings bag- Placed in locker #2. [facility] 15: 14:43 RN notified that patient meets Red Flag criteria. [facility] : 14:43 Door closed. Noise minimized. Visitors limited. [facility] 16:22 16:09 BP 129 / 68; Pulse 81bpm; Resp 17bpm; Pulse Ox 96% RA; [facility] 18:56 14:12 Home Meds: hydroxyzine HCl 100 mg Oral tab twice a day (Last Dose: Unknown); [address] 18:56 14:12 Home Meds: oxycodone 5 mg Oral TbOr 1 tab every 4-6 hours (Last Dose: Unknown); d jc 22:43 22:38 BP 142 / 88; Pulse 80bpm; Resp 18bpm; Pulse Ox 98%; Temp 96.4F Tympanic; slm slm Chart Complete MTDD
--- NOTE | 2016-09-04 23:48 | EDDOCDS ---
Physician Documentation [facility] Name: Aysha Garza Age: 40 yrs Sex: Female : 1975 Arrival Date: 09/02/2016 Time: 13:40 Bed [facility] Private MD: Disposition: 09/02 22:03 Critical Care: Critical care not applicable. pc Disposition: 09/02/16 22:05 Hospitalization ordered by Alexey Noyola for Inpatient Admission. Preliminary diagnosis are Suicidal ideations, Bipolar disorder, Alcohol abuse with intoxication. - Bed requested for Admit. - Status is Inpatient Admission. slm - Condition is Stable. - Problem is new. - Symptoms are unchanged. HPI: 13:55 This 40 yrs old Female presents to ER with complaints of Psych Problem. pc 13:55 The history is obtained from a [employer] squad police officer. A reliable history and/or examination pc was not able to be obtained, due to an uncooperative/violent patient. The patient presents to the emergency department with suicidal ideation, a history of substance abuse. At their worst, the symptoms were severe. In the emergency department, the symptoms are unchanged. She called police making suicidal threats. They found her intoxicated and denying she made any calls. She admitted to and then denied it. She became violent and was hand cuffed and brought to the ED for Psych eval. The patient has experienced similar episodes in the past, multiple times. The patient has been recently seen at the [facility], this week, for similar complaints. Historical: - Allergies: Ibuprofen (history of gastric bypas); - Home Meds: 1. tizanidine 4 mg oral cap as needed (Last dose: Unknown) 2. Percocet 5-325 mg Oral tab every 8-12 hours as needed 3. Zoloft 100 mg Oral tab once daily 4. Levora-28 0.15-0.03 mg oral tab once daily 5. bupropion HCl 150 mg Oral TbER once daily 6. hydroxyzine HCl 50 mg oral tab four times a day as needed (Last dose: Unknown) - PMHx: Bipolar disorder; Chronic Low Back Pain; GERD; OCD; PTSD; - PSHx: Gastric Bypass; Cholecystectomy; arm surgery; - The history from nurses notes was reviewed: but there are no nursing notes, or only partial notes available at the time of my charting. - Social history: Patient uses alcohol street drugs, cocaine, No barriers to communication noted, The patient speaks fluent Turkmen, Smoking status: Patient uses tobacco products, current some day smoker. - : The pt / caregiver states he / she is not on anticoagulants. Note all medical history obtained from 08/28/16 visit. - Immunization history:: unknown. - Exposure Risk Screening:: Unable to Assess. - Family history: Not pertinent. - Social history:: the patient smokes cigarettes the patient drinks alcohol, including recently. 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 The psychiatric and neurological components pc are also addressed in the HPI. Exam: 14:00 General Appearance: alert, uncooperative for examination swearing at staff, being pc restrained by police. 14:00 ENT: 14:00 Eyes: 14:00 Neck: The exam reveals no acute abnormalities. ROM is normal and painless. No nuchal rigidity is noted.. 14:00 Respiratory: breathing is even and unlabored, breath sounds are normal. 14:00 Cardiovascular: regular heart rhythm, tachycardia, 110bpm. 14:00 Extremities: The extremities have a grossly normal appearance. 14:00 Neuro: alert, oriented to person, place and time, no motor deficits. 14:00 Psych: mood is angry, hostile, non-communicative, affect is animated. Vital Signs: 14:11 4 14:26 BP 162 / 71; Pulse 137; Resp 20; Temp 99.8(TE); Pulse Ox 98% on R/A; jc4 14:27 Weight 40.37 kg / 89 lbs; Height 5 ft. 3 in. (160.02 cm); jc4 14:35 BP 160 / 102; Pulse 86; Resp 20; Pulse Ox 97% ; jc4 14:52 BP 154 / 98; Pulse 84; Resp 20; Pulse Ox 95% on R/A; jc4 15:06 BP 151 / 91; Pulse 81; Resp 20; Pulse Ox 96% on R/A; jc4 15:28 BP 169 / 94; Pulse 78; Resp 18; Pulse Ox 96% on R/A; ead 15:45 BP 129 / 68; Pulse 81; Resp 17; Pulse Ox 96% on R/A; pjf 18:47 BP 139 / 69; Pulse 112; Resp 16; Temp 96.(T); Pulse Ox 98% on R/A; ead 22:38 BP 142 / 88 (man/); Pulse 80; Resp 18; Temp 96.4(T); Pulse Ox 98% ; slm 14:27 Body Mass Index 15.77 (40.37 kg, 160.02 cm) jc4 14:11 Unable to obtain vital signs upon arrival jc4 MDM: 13:54 -Haloperidol Lactate 10 mg IM once ordered. pc 13:54 LORazepam 2 mg IM once ordered. pc 13:54 diphenhydrAMINE 50 mg IM once ordered. pc 13:54 Restraints, Adult: Chemical - Meds as ordered (poses imminent danger of self-harm). May pc use manual restraints to ensure safe admin. of meds. Pt. monitoring for min. of 2 hrs per RN policy. ordered. 13:54 The patient poses imminent danger of self harm, The patient requires both physical and pc chemical restraints. 14:00 Differential diagnosis: suicidal ideation, alcohol intoxication, violent and aggressive pc behavior. Plan: chemical restraints, labs, PFS eval. 14:11 Restraints, Adult: Mechanical - 4 points up to 1 hr (poses imminent danger of pc self-harm). May use manual restraints to secure restraint devices. Pt. monitoring per RN policy. ordered. 14:38 Financial registration complete. mm15 14:44 Consult PFS/PSA/Make Up Editor: Patient's case requires discussion with on-call pc Psychiatrist ordered. 14:44 PSA/PFS to call Nursing Business Process Engineer, to enter patient data on [place] Safe [place] if patient pc involuntarily admitted or transferred for SI or HI ordered. 14:44 Confirm accurate psychiatric medication list and times of last dosage ordered. pc 14:44 Detain Pt Until Medically/PFS Cleared ordered. pc 14:44 Acetaminophen Level Ordered. EDMS 14:44 Basic Metabolic Profile Ordered. EDMS 14:44 Complete Blood Count Ordered. EDMS 14:44 Drug Eval Toxicology ED Only Ordered. EDMS 14:44 Ethyl Alcohol (ethanol) Ordered. EDMS 14:44 HCG,Serum Qualitative Ordered. EDMS 14:44 Liver Profile Ordered. EDMS 14:44 Salicylate Level Ordered. EDMS 14:44 Thyroid Stimulating Hormone Ordered. EDMS 14:44 [facility] Payment Agreement was scanned into [employer] and attached to record. mm15 15:05 Discontinue Restraint / Seclusion ordered. jc4 16:14 Acetaminophen Level Reviewed. pc 16:14 Basic Metabolic Profile Reviewed. pc 16:14 Complete Blood Count Reviewed. pc 16:14 Ethyl Alcohol (ethanol) Reviewed. pc 16:14 Liver Profile Reviewed. pc 16:14 Salicylate Level Reviewed. pc 16:14 HCG,Serum Qualitative Reviewed. pc 16:14 Thyroid Stimulating Hormone Reviewed. pc 17:13 REGULAR DIET PLASTIC RINALDI+DIET ordered. EDMS 17:15 Drug Eval Toxicology ED Only Reviewed. pc 20:54 Consult PFS/PSA/Make Up Editor: Patient's case requires discussion with on-call hm1 Psychiatrist complete. 20:54 PSA/PFS to call Nursing Business Process Engineer, to enter patient data on [place] Safe [place] if patient hm1 involuntarily admitted or transferred for SI or HI complete. 21:06 Redraw Labs ordered. pc 21:07 Redraw Labs complete. jlm 21:08 POTASSIUM LEVEL Ordered. EDMS 22:03 POTASSIUM LEVEL Reviewed. pc 22:03 The patient has been medically cleared for psychiatric evaluation, admission and/or pc transfer. [place] Safe Act reporting: The patient poses a significant risk to self or others, and PSA/PFS has notified the Nursing Business Process Engineer and he/she will complete the required analytical data miner. Data reviewed: old medical records, vital signs, nurses notes, lab test results. Test interpretation: LAB - all labs as ordered have been reviewed, interpreted and considered in the overall management of the clinical presentation;. The patient has been re-examined and re-evaluated. There is no appreciated change of the patient's symptoms at this time. Disposition: The historical points, examination findings, and any diagnostic results supporting the provided diagnosis, were discussed with the patient or legal guardian. The need for further work-up and/or treatment in the hospital was explained. 22:30 Admit to IMHU: ordered. EDMS Administered Medications: 14:02 Drug: -Haloperidol Lactate 10 mg [haloperidol lactate 5 mg/mL injection solution (2 jc4 mL)] Route: IM; Site: right gluteus; 14:02 Drug: LORazepam 2 mg [lorazepam 2 mg/mL injection solution (1 mL)] Route: IM; Site: jc4 right gluteus; 14:02 Drug: diphenhydrAMINE 50 mg [diphenhydramine 50 mg/mL injection solution (1 mL)] Route: jc4 IM; Site: right gluteus; Signatures: Dispatcher [employer] EDThom Lazaro MD MD pc Petra Lewis, PSA PSA hm1 Katie Cunha RN RN jc4 Denise Ewing mm15 Giovana King LPN LPN slm Dunaway, Emily, RN RN ead Mitchell, Jessie, Straightening Machine Feeder Unit [facility] The chart was reviewed and I authenticate all verbal orders and agree with the evaluation and treatment provided.Corrections: (The following items were deleted from the chart) 18:56 14:12 Home Meds: hydroxyzine HCl 100 mg Oral tab twice a day (Last Dose: Unknown); jc4 ead 18:56 14:12 Home Meds: oxycodone 5 mg Oral TbOr 1 tab every 4-6 hours (Last Dose: Unknown); ead jc4 Attachments: 14:44 [facility] Payment Agreement mm15 Chart Complete [facility]
[2016-09-05 07:19] VITALS: BP 118/72
--- NOTE | 2016-09-05 08:25 | IPNPDOC ---
[facility] Progress Note Progress Note DATE OF SERVICE: 09/05/16 Subjective: Patient reports improving mood. Affect is noticeably brighter. Patient discussed how difficult it was to tell her children she was in a mental health hospital due to substance abuse. She was instructed to reframe the situation as a potential learning tool for her children understand the outcomes when using drugs. She expresses ongoing increased insight into her substance use disorder and importance of maintaining sobriety. Patient is medication compliant. Patient denies medication s/e's. She reports poor sleep and appetite is fair. Patient noticed in the milieu, is social, and is attending groups. She denies SI and HI. No signs of psychosis noted or reported. Objective: VITAL SIGNS: See below. NEW TEST RESULTS: None CURRENT MEDICATIONS: See below. MENTAL STATUS EXAMINATION: 40-year-old Croatian female, average height, overweight build. Central obesity. Pleasant, anxious, calm and cooperative in behavior. Affect restricted. Mood Depressed Thought form logical, coherent, concrete. Patient denies suicidal ideation (SI), denies homicidal ideation (HI) or delusions. Perception: No perceptual issues reported or observed. Thought process -linear; Thought content - We'll use this experience as a teaching tool to educate her children on the outcomes of substance abuse ;Insight and judgment- fair. Impulse control-fair. Assessment: 1. Bipolar disorder, current episode depressed, without PFs 2. Post traumatic stress disorder by history. 3. Alcohol use disorder. 4. Cocaine use disorder. 5. Status post head injury. Plan: ----- 1.~ ~ Patient was admitted on a 9.30 legal status, 2.~ ~ With patients permission, family stress contacted and database expanded. 3.~ ~Continue currently prescribed Zoloft for depressive symptoms and PTSD. ~Patient gives informed consent to initiate Depakote 250 mg daily for mood stabilization. 4.~ ~ Patient will be provided with protected environment. 5.~ ~ Patient will be treated with individual, group, and milieu therapies. 6.~ ~ Patient will receive supportive psych-education. 7.~ Outpatient follow-up treatment will be strongly recommended. Estimated length of stay between 3-5 days TIME SPENT: [30] minutes. Vital Signs Vital Signs Date Time Temp Pulse Resp B/P Pulse Ox O2 Delivery O2 Flow Rate FiO2 09/05/16 07:19 96.5 77 16 118/72 09/04/16 18:00 Room Air Laboratory Data 24H Labs Laboratory Tests 2 09/04/16 11:35: Blood Urea Nitrogen 10#, Creatinine 0.75, Sodium Level 143, Potassium Level 4.2 , Chloride Level 106, Carbon Dioxide Level 27, Calcium Level 8.8, Aspartate Amino Transf (AST/SGOT) 25, Alanine Aminotransferase (ALT/SGPT) 48, Alkaline Phosphatase 181H, Total Bilirubin 0.6, Total Protein 7.1, Albumin 3.5, Albumin/ Globulin Ratio 0.97L, Anion Gap 10, Glomerular Filtration Rate > 60.0 CBC/BMP Laboratory Tests 09/04/16 11:35 Calcium Level 8.8, Aspartate Amino Transf (AST/SGOT) 25, Alanine Aminotransferase (ALT/SGPT) 48, Alkaline Phosphatase 181 H, Total Bilirubin 0.6 , Total Protein 7.1, Albumin 3.5 Current Medications Current Medications Acetaminophen (Tylenol Tab) 650 mg Q6HP PRN PO HEADACHE or DISCOMFORT; Start at 02:15; Stop 10/03/16 at 02:14 Al Hydrox/Mg Hydrox/Simethicone (Mylanta) 30 ml Q4HP PRN PO HEARTBURN/ INDIGESTION; Start 09/03/16 at 02:15; Stop 10/03/16 at 02:14 Bupropion HCl (Wellbutrin Xl) 150 mg QAM PO Last administered on 09/03/16t 09: 06; Start 09/03/16 at 09:00; Stop 09/03/16 at 19:35; Status DC Home Med (Med Rec Complete!) ASDIRECTED XX ; Start 09/03/16 at 00:30; Stop 07/08 at 02:18; Status DC Hydroxyzine HCl (Atarax) 50 mg QIDP PO ; Start 09/03/16 at 02:15; Stop 09/03/16 at 02:50; Status DC Hydroxyzine HCl (Atarax) 50 mg QIDP PRN PO ANXIETY/AGITATION; Start 09/03/16 at 03:00; Stop 10/03/16 at 02:59 Magnesium Hydroxide (Milk Of Magnesia) 30 ml DAILYPRN PRN PO CONSTIPATION; Start 09/03/16 at 02:15; Stop 10/03/16 at 02:14 Miscellaneous (Unresolved Patient Own Med Order) SEE LABEL COMMENTS UNRESOLVED XX ; Start 09/04/16 at 00:01; Stop 10/04/16 at 00:00 Oxycodone/ Acetaminophen (Percocet 5mg/ 325mg Tablet) 1 tab Q12HP PRN PO MILD/ MODERATE PAIN (PS 1-7) Last administered on 09/04/16 18:20; Start 09/03/16 at 02:15; Stop 09/05/16 at 02:15; Status DC Patient Own Medication (Patient'S Own Med) 1 ea DAILY PO ; Start 09/03/16 at 09: 00; Stop 09/03/16 at 09:00; Status DC Patient Own Medication (Patient'S Own Med) 1 ea DAILY PO ; Start 09/05/16 at 09: 00; Stop 10/05/16 at 08:59; Status UNV Sertraline HCl (Zoloft) 100 mg DAILY PO Last administered on 09/04/16 08:43; Start 09/03/16 at 09:00; Stop 10/03/16 at 08:59 Tizanidine HCl (Zanaflex) 4 mg TIDP PO ; Start 09/03/16 at 02:15; Stop 09/03/16 at 02:50; Status DC Tizanidine HCl (Zanaflex) 4 mg TIDP PRN PO MUSCLE SPASMS; Start 09/03/16 at 03: 00; Stop 10/03/16 at 02:59 Trazodone HCl (Desyrel) 50 mg QHSP PRN PO INSOMNIA Last administered on 20:13; Start 09/03/16 at 02:15; Stop 10/03/16 at 02:14 Allergies Coded Allergies: No Known Drug Allergy (Verified Allergy, Unknown, 10/22/12) Ibuprofen (Unverified Adverse Reaction, Unknown, hx of gastric bypass, 07/08) JARED FRIEDMAN MD Sep 05, 2016 08:25
[2016-09-05] MEDS: SERTRALINE 100 MG TAB PO SCH (08:36)
[2016-09-05] MEDS ORDERED: ENTER DRUG NAME HERE (PATIENT'S OWN MED) PO SCH (09:00)
[2016-09-05] MEDS: tiZANidine 4 MG TAB PO PRN ×2 (10:05→20:58)
[2016-09-05] MEDS: ACETAMINOPHEN TAB 650MG DOSE (2X325MG) PO PRN ×2 (14:33→20:59)
[2016-09-05 18:00] VITALS: BP 120/80
[2016-09-05] MEDS: traZODone 50 MG TAB PO PRN (20:58)
[2016-09-06 06:46] VITALS: BP 138/92
[2016-09-06] MEDS: tiZANidine 4 MG TAB PO PRN (08:12)
[2016-09-06] MEDS: ACETAMINOPHEN TAB 650MG DOSE (2X325MG) PO PRN (08:12)
[2016-09-06] MEDS: SERTRALINE 100 MG TAB PO SCH (08:12)
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
[2016-09-06] MEDS ORDERED: DIVALPROEX 250MG *ER* TAB PO ONE (09:30)
[2016-09-06] MEDS ORDERED: SERT-138 PO (09:33)
[2016-09-06] MEDS ORDERED: TRAZO50TA PO (09:33)
[2016-09-06] MEDS ORDERED: DEPA250T2 PO (09:33)
[2016-09-06] MEDS ORDERED: DIVALPROEX 250MG *ER* TAB PO SCH (21:00)
== END 2016-09-06 11:45 | disposition home or self-care (01) | DRG 753 ==
LOC: M ED 13:40 → M PSY 22:55
PROVIDERS: ADMIT Psychiatry & Neurology Psychiatry; ATTEND Psychiatry & Neurology Psychiatry
DX: F31.9 Bipolar disorder, unspecified (principal); F43.10 Post-traumatic stress disorder, unspecified; Z79.899 Other long term (current) drug therapy; Z88.8 Allergy status to other drugs, medicaments and biological substances; F14.90 Cocaine use, unspecified, uncomplicated; F10.10 Alcohol abuse, uncomplicated; M54.5 Low back pain; K21.9 Gastro-esophageal reflux disease without esophagitis

== ENCOUNTER 2016-09-10 13:47 | Emergency (ER) | payer OTHER ==
[~2016-09-10 13:47] MED LIST changes: +BUPR150T3 PO; +DEPA250T2 PO; +HYDR-4274 PO; +LEVORA PO; +PERCOCET PO; +SERT-138 PO; +TIZA4CAP3 PO; +TRAZO50TA PO; +ZOLO100T PO
== END 2016-09-11 03:00 | disposition left against medical advice (07) ==
LOC: M ED 13:47
DX: N93.9 Abnormal uterine and vaginal bleeding, unspecified (principal); Z53.20 Procedure and treatment not carried out because of patient's decision for unspecified reasons

== ENCOUNTER 2016-09-23 00:47 | Emergency (ER) | payer OTHER ==
[~2016-09-23] VITALS: Ht 160 cm; Wt 89.4 kg
[2016-09-23] MEDS ORDERED: ACETAMINOPHEN TAB 650MG DOSE (2X325MG) PO ONE (02:45)
--- NOTE | 2016-09-23 03:10 | REPUSA ---
CLINICAL HISTORY: Head trauma. TECHNIQUE: Multiple axial brain CT scan sections were obtained from base to vertex without contrast a dministration. 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 There is no evidence of skull fracture. The study shows normal configuration of sella turcica. There are no intra or extra-axial collections. There is no mass effect or midline shift. There is no evidence of hematoma formation. No hydrocephal us is present. No abnormal calcifications are noted. No significant abnormalities are seen either in the posterior fossa or supratentorial compartment. The sinuses and mastoid air cells are patent. IMPRESSION: Bradly cisterna magna. No evidence of acute intracranial pathology. No intracranial hemorrhage or skull fracture. Thank you for your kind referral of this patient.
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
[2016-09-23 03:53] VITALS: BP 154/91
== END 2016-09-23 04:10 | disposition home or self-care (01) ==
LOC: M ED 03:06
DX: S00.83XA Contusion of other part of head, initial encounter (principal); S40.029A Contusion of unspecified upper arm, initial encounter; S80.10XA Contusion of unspecified lower leg, initial encounter; Y04.0XXA Assault by unarmed brawl or fight, initial encounter; Y92.019 Unspecified place in single-family (private) house as the place of occurrence of the external cause; Y93.89 Activity, other specified; Y99.8 Other external cause status; Z98.84 Bariatric surgery status; Z79.899 Other long term (current) drug therapy; F31.9 Bipolar disorder, unspecified

== ENCOUNTER 2016-09-27 01:48 | Emergency (ER) | payer OTHER ==
[~2016-09-27] VITALS: Ht 160 cm; Wt 89.4 kg
[2016-09-27 02:19] LABS: MEAN CORPUSCULAR HEMOGLOBIN 26.4 pg (27.0-33.0); MEAN CORPUSCULAR HGB CONC 31.8 g/dl (32.0-36.5); MEAN CORPUSCULAR VOLUME 82.8 fl (80.0-96.0); RED CELL DISTRIBUTION WIDTH 14.3 % (11.5-14.5)
[2016-09-27 02:25] LABS: CONTROL LINE HCG INT CTR LINE PRESENT
[2016-09-27 02:40] LABS: ALBUMIN 3.9 GM/DL (3.2-5.2); ALKALINE PHOSPHATASE 341 U/L (45-117); ALT/SGPT 136 U/L (12-78); ANION GAP 11 MEQ/L (8-16); AST/SGOT 437 U/L (15-37); BILIRUBIN,DIRECT 0.2 MG/DL (0.0-0.2); BILIRUBIN,TOTAL 0.4 MG/DL (0.2-1.0); BLOOD UREA NITROGEN 7 MG/DL (7-18); CALCIUM LEVEL 8.3 MG/DL (8.5-10.1); CARBON DIOXIDE LEVEL 21 MEQ/L (21-32); CHLORIDE LEVEL 108 MEQ/L (98-107); CREATININE FOR GFR 0.83 MG/DL (0.55-1.02); GLOMERULAR FILTRATION RATE > 60.0 (>58); GLUCOSE, FASTING 117 MG/DL (70-105); POTASSIUM SERUM 3.8 MEQ/L (3.5-5.1); SODIUM LEVEL 140 MEQ/L (136-145); TOTAL PROTEIN 7.8 GM/DL (6.4-8.2)
[2016-09-27 02:46] LABS: METHADONE URINE NEGATIVE (NEGATIVE)
--- NOTE | 2016-09-27 05:46 | REP ---
Clinical: Acute chest pain . Comparison: 07/17/2016 . Technique: PA and lateral. Findings: The mediastinum and cardiac silhouette are normal. The lung anglin are clear and without acute consolidation, effusion, or pneumothorax. The skeletal structures are intact and normal. Impression: 1. No acute cardiopulmonary process. Signed by Jose Ramos MD 09/27/2016 05:37 A
[2016-09-27] MEDS ORDERED: ACETAMINOPHEN TAB 650MG DOSE (2X325MG) PO ONE (06:45)
[2016-09-27 09:27] VITALS: BP 173/79
--- NOTE | 2016-09-27 11:09 | ECGEPIP ---
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
--- NOTE | 2016-09-27 11:11 | ECGEPIP ---
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
== END 2016-09-27 09:43 | disposition home or self-care (01) ==
LOC: M ED 04:01
DX: F10.120 Alcohol abuse with intoxication, uncomplicated (principal); R07.9 Chest pain, unspecified; F11.10 Opioid abuse, uncomplicated; K21.9 Gastro-esophageal reflux disease without esophagitis; F31.9 Bipolar disorder, unspecified; F42.9 Obsessive-compulsive disorder, unspecified; Z88.8 Allergy status to other drugs, medicaments and biological substances; Z79.899 Other long term (current) drug therapy; Z98.84 Bariatric surgery status
CPT/HCPCS: 36415; 71020; 80048; 80076; 80306; 82550; 82553; 84443; 84703; 85027; 93005; 93041; 94760; 99285; G0480

== ENCOUNTER → 2016-11-02 | Outpatient (CLI) | payer OTHER ==
[~2016-11-02] MED LIST changes: +MULT1TAB10 PO; +PERC5TAB6 PO
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
== END ==
LOC: M PAIN 09:40
PROVIDERS: ATTEND Nurse Practitioner Family
DX: G89.29 Other chronic pain (principal); M25.552 Pain in left hip; M79.1 Myalgia; G40.909 Epilepsy, unspecified, not intractable, without status epilepticus; F31.9 Bipolar disorder, unspecified; Z79.891 Long term (current) use of opiate analgesic; Z79.899 Other long term (current) drug therapy; Z87.820 Personal history of traumatic brain injury

== ENCOUNTER 2016-11-03 06:52 | Emergency (ER) | payer OTHER ==
[~2016-11-03] VITALS: Ht 160 cm; Wt 92.1 kg
[~2016-11-03 06:52] MED LIST changes: -MULT1TAB10 PO; -PERC5TAB6 PO
[2016-11-03] MEDS ORDERED: NS 1,000 ML IV ONE (07:00)
[2016-11-03] MEDS ORDERED: LORazepam 2 MG/ML VIAL (J2060) IV STA ×2 (07:23→07:47)
[2016-11-03 07:48] LABS: MEAN CORPUSCULAR HEMOGLOBIN 26.5 pg (27.0-33.0); MEAN CORPUSCULAR HGB CONC 31.7 g/dl (32.0-36.5); MEAN CORPUSCULAR VOLUME 83.6 fl (80.0-96.0); RED CELL DISTRIBUTION WIDTH 13.8 % (11.5-14.5); WHITE BLOOD COUNT 9.4 K/mm3 (4.0-10.0)
[2016-11-03 08:08] LABS: CONTROL LINE HCG INT CTR LINE PRESENT
[2016-11-03 08:25] LABS: ALBUMIN 3.5 GM/DL (3.2-5.2); ALBUMIN/GLOBULIN RATIO 0.85 (1.00-1.93); ALKALINE PHOSPHATASE 134 U/L (45-117); ALT/SGPT 23 U/L (12-78); ANION GAP 11 MEQ/L (8-16); AST/SGOT 32 U/L (15-37); BILIRUBIN,DIRECT < 0.1 MG/DL (0.0-0.2); BILIRUBIN,TOTAL 0.3 MG/DL (0.2-1.0); BLOOD UREA NITROGEN 3 MG/DL (7-18); CALCIUM LEVEL 8.3 MG/DL (8.5-10.1); CARBON DIOXIDE LEVEL 22 MEQ/L (21-32); CHLORIDE LEVEL 109 MEQ/L (98-107); CREATININE FOR GFR 0.72 MG/DL (0.55-1.02); GLOMERULAR FILTRATION RATE > 60.0 (>58); GLUCOSE, FASTING 93 MG/DL (70-105); POTASSIUM SERUM 4.5 MEQ/L (3.5-5.1); SODIUM LEVEL 142 MEQ/L (136-145); TOTAL PROTEIN 7.6 GM/DL (6.4-8.2)
--- NOTE | 2016-11-03 10:32 | REP ---
Noncontrast CT study of the brain: History: Altered mental status. Comparison brain CT study September 23, 2016. Findings: There is CSF density in the region of the superior cerebellar cistern extending up through the top of the tentorial notch consistent with a small subarachnoid cyst at the superior cerebellar cistern. This is unchanged from September 23, 2016. There is no evidence of intracranial mass lesion. No hemorrhage is seen. Lateral third and fourth ventricles are normal in size and position. Black-white differentiation pattern is normal above and below the tentorium. Bone window settings demonstrate an intact bony calvarium. Impression: No acute intracranial abnormality. 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 Signed by Rizwan Garcia MD 11/03/2016 11:22 A
[2016-11-03 11:05] LABS: METHADONE URINE NEGATIVE (NEGATIVE)
[2016-11-03 12:31] VITALS: BP 161/86
--- NOTE | 2016-11-05 08:52 | ECGEPIP ---
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
== END 2016-11-03 17:00 | disposition home or self-care (01) ==
LOC: M ED 08:50
DX: F10.10 Alcohol abuse, uncomplicated (principal); F19.10 Other psychoactive substance abuse, uncomplicated; F31.9 Bipolar disorder, unspecified; F17.200 Nicotine dependence, unspecified, uncomplicated; Z88.6 Allergy status to analgesic agent
CPT/HCPCS: 70450; 80048; 80076; 80306; 84443; 84703; 85027; 93005; 93041; 96372; 99285; G0480; J2060

== ENCOUNTER 2016-11-21 00:42 | Emergency (ER) | payer OTHER ==
[~2016-11-21] VITALS: Ht 160 cm; Wt 93.0 kg
[2016-11-21] MEDS ORDERED: MULT1TAB10 PO (01:09)
--- NOTE | 2016-11-21 02:27 | REP ---
Clinical: Pain with recent trauma/fall. Technique: AP and frog lateral views of the left hip. Findings: Early advanced arthritic degenerative changes include periarticular sclerosis and marginal osteophytes with joint space narrowing and small periarticular loose bodies. No obvious acute fracture or dislocation. Impression: Early advanced arthritic degenerative changes. No acute fracture or dislocation. Signed by Jose Ramos MD 11/21/2016 02:19 A
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
[2016-11-21] MEDS ORDERED: PERC5TAB6 PO (02:32)
[2016-11-21] MEDS ORDERED: PERCOCET 5MG/325MG TAB PO ONE (02:45)
[2016-11-21 02:47] VITALS: BP 137/82
== END 2016-11-21 02:50 | disposition home or self-care (01) ==
LOC: M ED 02:34
DX: M25.552 Pain in left hip (principal); S92.512A Displaced fracture of proximal phalanx of left lesser toe(s), initial encounter for closed fracture; W10.9XXA Fall (on) (from) unspecified stairs and steps, initial encounter; Y92.019 Unspecified place in single-family (private) house as the place of occurrence of the external cause; Y93.01 Activity, walking, marching and hiking; Y99.8 Other external cause status; F19.21 Other psychoactive substance dependence, in remission; Z98.0 Intestinal bypass and anastomosis status

== ENCOUNTER → 2016-11-30 | Outpatient (CLI) | payer MEDICAID ==
[~2016-11-30] MED LIST changes: +MULT1TAB10 PO; +PERC5TAB6 PO
== END ==
LOC: M OUTALCOH 07:55
PROVIDERS: ATTEND Psychiatry & Neurology Psychiatry
DX: F14.20 Cocaine dependence, uncomplicated (principal); F10.20 Alcohol dependence, uncomplicated; F12.20 Cannabis dependence, uncomplicated

== ENCOUNTER 2016-12-08 08:00 | Outpatient (RCR) | payer MEDICAID ==
[2016-12-13] MEDS ORDERED: PRED20TA PO (05:06)
[2016-12-16] MEDS ORDERED: MULT1TAB10 PO (21:49)
[2016-12-16] MEDS ORDERED: ZANT300T PO (23:58)
[2016-12-19] MEDS ORDERED: DEPA250T32 PO (20:05)
== END 2016-12-20 ==
LOC: M OUTALCOH 08:00
PROVIDERS: ATTEND Psychiatry & Neurology Psychiatry
DX: F15.20 Other stimulant dependence, uncomplicated (principal); F12.20 Cannabis dependence, uncomplicated; F10.20 Alcohol dependence, uncomplicated

== ENCOUNTER 2016-12-10 19:47 | Emergency (ER) | payer MEDICAID ==
[~2016-12-10] VITALS: Ht 160 cm; Wt 90.3 kg
[2016-12-10 19:48] VITALS: BP 155/89
== END 2016-12-11 20:10 | disposition left against medical advice (07) ==
LOC: M ED 12-11 12:12
DX: Z53.29 Procedure and treatment not carried out because of patient's decision for other reasons (principal)

== ENCOUNTER 2016-12-12 23:15 | Emergency (ER) | payer OTHER ==
[~2016-12-12] VITALS: Ht 160 cm; Wt 89.4 kg
[~2016-12-12 23:15] MED LIST changes: -AMLO2.5T PO; -BUPR50TA PO; -DEPA1TAB3 PO; -DEPA250T32 PO; -FLUT1SPR2; -HYDROXYZINE PO; -MELO7.5T6 PO; -OXYC15TA76 PO; -PRED20TA PO; -TIZANIDINE PO; -XANA0.25 PO; -ZANT300T PO
[2016-12-13] MEDS ORDERED: NS 1,000 ML IV ONE (01:15)
[2016-12-13] MEDS ORDERED: diphenhydrAMINE INJ 50MG/ML VIAL (J1200) IV ONE (01:15)
[2016-12-13] MEDS ORDERED: methylPREDNISolone INJ 125 MG/2 ML VIAL (J2930) IV ONE (01:15)
[2016-12-13] MEDS ORDERED: FAMOTIDINE IV BAG 20 MG in APPROPRIATE DILUENT 1 EA IV ONE (01:15)
[2016-12-13] MEDS ORDERED: PRED20TA PO (05:06)
[2016-12-13 05:21] VITALS: BP 124/66
== END 2016-12-13 05:25 | disposition home or self-care (01) ==
LOC: M ED 23:35
DX: L50.9 Urticaria, unspecified (principal); Z79.899 Other long term (current) drug therapy; Z79.891 Long term (current) use of opiate analgesic; Z88.6 Allergy status to analgesic agent

== ENCOUNTER → 2016-12-12 | Outpatient (CLI) | payer OTHER ==
[~2016-12-12] MED LIST changes: +AMLO2.5T PO; +BUPR50TA PO; +DEPA1TAB3 PO; +DEPA250T32 PO; +FLUT1SPR2; +HYDROXYZINE PO; +MELO7.5T6 PO; +OXYC15TA76 PO; +PRED20TA PO; +TIZANIDINE PO; +XANA0.25 PO; +ZANT300T PO
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
== END ==
LOC: M PAIN 10:20
PROVIDERS: ATTEND Anesthesiology
DX: G89.29 Other chronic pain (principal); M79.1 Myalgia; M25.519 Pain in unspecified shoulder; M46.1 Sacroiliitis, not elsewhere classified; M25.552 Pain in left hip; R56.9 Unspecified convulsions; R51 Headache; F31.9 Bipolar disorder, unspecified; Z79.891 Long term (current) use of opiate analgesic; Z79.899 Other long term (current) drug therapy

== ENCOUNTER 2016-12-16 21:42 | Emergency (ER) | payer MEDICAID, OTHER ==
[~2016-12-16] VITALS: Ht 160 cm; Wt 93.0 kg
[~2016-12-16 21:42] MED LIST changes: +PRED20TA PO
[2016-12-16] MEDS ORDERED: MULT1TAB10 PO (21:49)
[2016-12-16] MEDS ORDERED: KETOROLAC 30 MG/ML VIAL (J1885) IV ONE (23:00)
[2016-12-16] MEDS ORDERED: ONDANSETRON 4MG/2ML VIAL (J2405) IV ONE (23:00)
[2016-12-16] MEDS ORDERED: NS 1,000 ML IV ONE (23:00)
[2016-12-16 23:17] LABS: BASO % 0.3 % (0.0-1.0); EOS % 0.5 % (0.0-3.0); LARGE UNSTAINED CELL # 0.1 K/mm3 (0.0-0.4); LARGE UNSTAINED CELL % 1.7 % (0.0-4.0); LYMPH # 2.8 K/mm3 (1.5-4.5); LYMPH % 39.8 % (24.0-44.0); MEAN CORPUSCULAR HEMOGLOBIN 26.3 pg (27.0-33.0); MEAN CORPUSCULAR HGB CONC 31.7 g/dl (32.0-36.5); MEAN CORPUSCULAR VOLUME 83.2 fl (80.0-96.0); MONO # 0.5 K/mm3 (0.0-0.8); MONO % 6.7 % (0.0-5.0); NEUTROPHILS # 3.5 K/mm3 (1.8-7.7); PLATELET COUNT, AUTOMATED 334 k/mm3 (150-450); WHITE BLOOD COUNT 6.8 K/mm3 (4.0-10.0)
[2016-12-16 23:35] LABS: ALBUMIN 3.2 GM/DL (3.2-5.2); ALBUMIN/GLOBULIN RATIO 0.97 (1.00-1.93); ALKALINE PHOSPHATASE 113 U/L (45-117); ALT/SGPT 41 U/L (12-78); ANION GAP 7 MEQ/L (8-16); AST/SGOT 29 U/L (15-37); BILIRUBIN,DIRECT 0.1 MG/DL (0.0-0.2); BILIRUBIN,TOTAL 0.4 MG/DL (0.2-1.0); BLOOD UREA NITROGEN 8 MG/DL (7-18); CALCIUM LEVEL 8.4 MG/DL (8.5-10.1); CARBON DIOXIDE LEVEL 25 MEQ/L (21-32); CHLORIDE LEVEL 107 MEQ/L (98-107); GLOMERULAR FILTRATION RATE > 60.0 (>58); GLUCOSE, FASTING 94 MG/DL (70-105); POTASSIUM SERUM 3.5 MEQ/L (3.5-5.1); SODIUM LEVEL 139 MEQ/L (136-145); TOTAL PROTEIN 6.5 GM/DL (6.4-8.2)
[2016-12-16 23:54] VITALS: BP 120/79
[2016-12-16] MEDS ORDERED: ZANT300T PO (23:58)
== END 2016-12-17 00:10 | disposition home or self-care (01) ==
LOC: M ED 22:49
DX: R10.84 Generalized abdominal pain (principal); R11.2 Nausea with vomiting, unspecified; R19.7 Diarrhea, unspecified; E66.9 Obesity, unspecified; Z98.84 Bariatric surgery status; Z82.49 Family history of ischemic heart disease and other diseases of the circulatory system; Z90.49 Acquired absence of other specified parts of digestive tract; Z88.6 Allergy status to analgesic agent; Z79.899 Other long term (current) drug therapy

== ENCOUNTER 2016-12-19 19:41 | Emergency (ER) | payer OTHER ==
[~2016-12-19] VITALS: Ht 160 cm; Wt 93.0 kg
[~2016-12-19 19:41] MED LIST changes: +ZANT300T PO
[2016-12-19] MEDS ORDERED: DEPA250T32 PO (20:05)
[2016-12-19] MEDS ORDERED: NS 1,000 ML IV ONE ×3 (20:45→23:30)
[2016-12-19 20:50] LABS: BASO % 0.4 % (0.0-1.0); EOS # 0.1 K/mm3 (0.0-0.50); EOS % 1.3 % (0.0-3.0); LARGE UNSTAINED CELL # 0.1 K/mm3 (0.0-0.4); LARGE UNSTAINED CELL % 1.6 % (0.0-4.0); LYMPH # 2.6 K/mm3 (1.5-4.5); LYMPH % 31.9 % (24.0-44.0); MEAN CORPUSCULAR HGB CONC 32.5 g/dl (32.0-36.5); MEAN CORPUSCULAR VOLUME 82.9 fl (80.0-96.0); MONO # 0.4 K/mm3 (0.0-0.8); MONO % 5.5 % (0.0-5.0); NEUTROPHILS # 4.6 K/mm3 (1.8-7.7); NEUTROPHILS % 59.3 % (36.0-66.0); PLATELET COUNT, AUTOMATED 292 k/mm3 (150-450); RED CELL DISTRIBUTION WIDTH 13.8 % (11.5-14.5); WHITE BLOOD COUNT 7.7 K/mm3 (4.0-10.0)
[2016-12-19 21:19] LABS: ANION GAP 7 MEQ/L (8-16); BLOOD UREA NITROGEN 8 MG/DL (7-18); CALCIUM LEVEL 7.8 MG/DL (8.5-10.1); CARBON DIOXIDE LEVEL 24 MEQ/L (21-32); CHLORIDE LEVEL 108 MEQ/L (98-107); CREATININE FOR GFR 0.78 MG/DL (0.55-1.02); GLOMERULAR FILTRATION RATE > 60.0 (>58); GLUCOSE, FASTING 122 MG/DL (70-105); POTASSIUM SERUM 3.9 MEQ/L (3.5-5.1); SODIUM LEVEL 139 MEQ/L (136-145)
--- NOTE | 2016-12-19 22:09 | ECGEPIP ---
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
[2016-12-20 01:29] VITALS: BP 166/77
[2016-12-20] MEDS ORDERED: ACETAMINOPHEN TAB 650MG DOSE (2X325MG) PO ONE (02:15)
== END 2016-12-20 02:28 | disposition home or self-care (01) ==
LOC: M ED 21:06
DX: I95.1 Orthostatic hypotension (principal); Z79.899 Other long term (current) drug therapy; Z98.84 Bariatric surgery status; Z88.6 Allergy status to analgesic agent

== ENCOUNTER → 2016-12-22 | Outpatient (REF) | payer OTHER ==
[~2016-12-22] MED LIST changes: +AMLO2.5T PO; +BUPR50TA PO; +DEPA1TAB3 PO; +DEPA250T32 PO; +FLUT1SPR2; +HYDROXYZINE PO; +MELO7.5T6 PO; +OXYC15TA76 PO; +TIZANIDINE PO; +XANA0.25 PO
[2016-12-31 07:53] LABS: SUMMARY SEE SEPARATE REPORT
== END ==
LOC: M LAB REF 16:15
PROVIDERS: ATTEND Family Medicine Addiction Medicine
DX: M25.552 Pain in left hip (principal)

== ENCOUNTER 2016-12-23 15:51 | Emergency (ER) | payer OTHER ==
[~2016-12-23] VITALS: Ht 160 cm; Wt 93.0 kg
[~2016-12-23 15:51] MED LIST changes: -AMLO2.5T PO; -BUPR50TA PO; -DEPA1TAB3 PO; -FLUT1SPR2; -HYDROXYZINE PO; -MELO7.5T6 PO; -OXYC15TA76 PO; -TIZANIDINE PO; -XANA0.25 PO
[2016-12-23] MEDS ORDERED: DEPA1TAB3 PO (16:17)
[2016-12-23] MEDS ORDERED: XANA0.25 PO (16:17)
[2016-12-23] MEDS ORDERED: OXYC15TA76 PO (16:17)
[2016-12-23] MEDS ORDERED: NORCO, ANEXSIA 5/325MG TABLET (HYDROcodone/ACETAMINOPHEN) PO ONE (17:00)
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
[2016-12-23 18:27] VITALS: BP 142/73
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
== END 2016-12-23 18:30 | disposition home or self-care (01) ==
LOC: M ED 17:29
DX: S40.812A Abrasion of left upper arm, initial encounter (principal); S00.83XA Contusion of other part of head, initial encounter; Y04.8XXA Assault by other bodily force, initial encounter; Y92.019 Unspecified place in single-family (private) house as the place of occurrence of the external cause; Y93.89 Activity, other specified; Y99.9 Unspecified external cause status; F41.9 Anxiety disorder, unspecified; F31.9 Bipolar disorder, unspecified; R56.9 Unspecified convulsions; Z79.891 Long term (current) use of opiate analgesic; Z79.899 Other long term (current) drug therapy; Z88.6 Allergy status to analgesic agent; Z98.84 Bariatric surgery status; Z90.49 Acquired absence of other specified parts of digestive tract

== ENCOUNTER 2016-12-25 18:33 | Emergency (ER) | payer OTHER ==
[~2016-12-25] VITALS: Ht 160 cm; Wt 93.9 kg
[~2016-12-25 18:33] MED LIST changes: +DEPA1TAB3 PO; +OXYC15TA76 PO; +XANA0.25 PO
[2016-12-25] MEDS ORDERED: AMLO2.5T PO (18:54)
[2016-12-25] MEDS ORDERED: FLUT1SPR2 (18:54)
[2016-12-25] MEDS ORDERED: MELO7.5T6 PO (18:54)
[2016-12-25] MEDS ORDERED: TIZANIDINE PO (18:54)
[2016-12-25] MEDS ORDERED: HYDROXYZINE PO (18:54)
[2016-12-25] MEDS ORDERED: BUPR50TA PO (18:54)
[2016-12-25 20:55] LABS: MEAN CORPUSCULAR HEMOGLOBIN 26.4 pg (27.0-33.0); MEAN CORPUSCULAR HGB CONC 31.5 g/dl (32.0-36.5); MEAN CORPUSCULAR VOLUME 83.9 fl (80.0-96.0); RED CELL DISTRIBUTION WIDTH 14.2 % (11.5-14.5); WHITE BLOOD COUNT 6.2 K/mm3 (4.0-10.0)
[2016-12-25 21:10] LABS: CONTROL LINE HCG INT CTR LINE PRESENT
[2016-12-25 21:23] LABS: ALBUMIN 3.3 GM/DL (3.2-5.2); ALBUMIN/GLOBULIN RATIO 0.92 (1.00-1.93); ALKALINE PHOSPHATASE 229 U/L (45-117); ALT/SGPT 125 U/L (12-78); ANION GAP 11 MEQ/L (8-16); AST/SGOT 42 U/L (15-37); BILIRUBIN,DIRECT < 0.1 MG/DL (0.0-0.2); BILIRUBIN,TOTAL 0.2 MG/DL (0.2-1.0); BLOOD UREA NITROGEN 6 MG/DL (7-18); CALCIUM LEVEL 8.1 MG/DL (8.5-10.1); CARBON DIOXIDE LEVEL 22 MEQ/L (21-32); CHLORIDE LEVEL 113 MEQ/L (98-107); CREATININE FOR GFR 0.66 MG/DL (0.55-1.02); GLOMERULAR FILTRATION RATE > 60.0 (>58); GLUCOSE, FASTING 94 MG/DL (70-105); SODIUM LEVEL 146 MEQ/L (136-145); TOTAL PROTEIN 6.9 GM/DL (6.4-8.2)
[2016-12-25 21:24] LABS: METHADONE URINE NEGATIVE (NEGATIVE)
[2016-12-25] MEDS ORDERED: NS 1,000 ML IV ONE (23:45)
--- NOTE | 2016-12-26 08:31 | ECGEPIP ---
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
[2016-12-26 10:05] VITALS: BP 174/88
== END 2016-12-26 10:06 | disposition home or self-care (01) ==
LOC: M ED 21:21
DX: F19.10 Other psychoactive substance abuse, uncomplicated (principal); F31.9 Bipolar disorder, unspecified; Z98.84 Bariatric surgery status; Z90.49 Acquired absence of other specified parts of digestive tract

== ENCOUNTER 2017-01-02 02:19 | Emergency (ER) | payer OTHER ==
[~2017-01-02 02:19] MED LIST changes: +AMLO2.5T PO; +BUPR50TA PO; +FLUT1SPR2; +HYDROXYZINE PO; +MELO7.5T6 PO; +TIZANIDINE PO
[2017-01-02 02:26] VITALS: BP 158/96
== END 2017-01-02 07:06 | disposition left against medical advice (07) ==
LOC: M ED 02:19
DX: H57.13 Ocular pain, bilateral (principal); Z53.21 Procedure and treatment not carried out due to patient leaving prior to being seen by health care provider

== ENCOUNTER 2017-01-22 13:48 | Emergency (ER) | payer MEDICAID, OTHER, SELFPAY ==
[~2017-01-22] VITALS: Ht 160 cm; Wt 94.3 kg
[~2017-01-22 13:48] MED LIST changes: +ABIL1TAB13 PO; -ABIL2TAB2 PO; -HYDR-4274 PO; +HYDR50TA70 PO; -MELO7.5T6 PO; +MELO7.5T7 PO; +PERC5TAB12 PO; -PERC5TAB6 PO; +TOPA100T12 PO; -TOPA100T8 PO
[2017-01-22] MEDS ORDERED: ONDANSETRON 4 MG ORAL DISINTEGRATING TAB (S0181) PO ONE (14:30)
[2017-01-22] MEDS ORDERED: ZOFR4TAB3 PO (14:57)
[2017-01-22 15:11] VITALS: BP 165/89
== END 2017-01-22 15:13 | disposition home or self-care (01) ==
LOC: M ED 13:48
DX: E86.0 Dehydration (principal); R11.2 Nausea with vomiting, unspecified; R19.7 Diarrhea, unspecified; I10 Essential (primary) hypertension; F31.9 Bipolar disorder, unspecified; R56.9 Unspecified convulsions; Z98.84 Bariatric surgery status; Z91.030 Bee allergy status; Z88.6 Allergy status to analgesic agent; Z79.899 Other long term (current) drug therapy; Z79.52 Long term (current) use of systemic steroids

== ENCOUNTER 2017-01-28 09:56 | Emergency (ER) | payer MEDICAID ==
[~2017-01-28] VITALS: Ht 160 cm; Wt 93.2 kg
[2017-01-28 09:56] VITALS: BP 139/86
[~2017-01-28 09:56] MED LIST changes: +ZOFR4TAB3 PO
[2017-01-28] MEDS ORDERED: BACI500O8 TOP (11:04)
[2017-01-28] MEDS ORDERED: BACITRACIN OINT 30GM TOP ONE (11:15)
[2017-01-28] MEDS ORDERED: NEOSPORIN TOP OINT 15GM TOP ONE (11:15)
== END 2017-01-28 11:16 | disposition home or self-care (01) ==
LOC: M ED 09:56
DX: T21.31XA Burn of third degree of chest wall, initial encounter (principal); F17.210 Nicotine dependence, cigarettes, uncomplicated; X08.8XXA Exposure to other specified smoke, fire and flames, initial encounter; Y92.9 Unspecified place or not applicable; Y99.9 Unspecified external cause status; Y93.9 Activity, unspecified; Z88.6 Allergy status to analgesic agent; Z91.030 Bee allergy status; Z79.899 Other long term (current) drug therapy

== ENCOUNTER 2017-02-04 16:28 | Emergency (ER) | payer MEDICAID ==
[~2017-02-04] VITALS: Ht 160 cm; Wt 94.8 kg
[~2017-02-04 16:28] MED LIST changes: +BACI500O8 TOP
[2017-02-04 16:29] VITALS: BP 151/97
[2017-02-04] MEDS ORDERED: TYLE500T78 PO (16:36)
[2017-02-04] MEDS ORDERED: CYCLOBENZAPRINE 5MG TABLET PO ONE (17:15)
[2017-02-04] MEDS ORDERED: predniSONE 20 MG TAB PO ONE (17:15)
[2017-02-04] MEDS ORDERED: PRED20TA PO (17:16)
[2017-02-04] MEDS ORDERED: CYCL5TAB PO (17:17)
[2017-02-04] MEDS ORDERED: CYCLOBENZAPRINE 10 MG TAB PO ONE (17:30)
== END 2017-02-04 17:41 | disposition home or self-care (01) ==
LOC: M ED 16:28
DX: M54.10 Radiculopathy, site unspecified (principal); M54.5 Low back pain; F17.200 Nicotine dependence, unspecified, uncomplicated; Z98.84 Bariatric surgery status; R56.9 Unspecified convulsions; I10 Essential (primary) hypertension; F41.9 Anxiety disorder, unspecified; F32.9 Major depressive disorder, single episode, unspecified; Z79.899 Other long term (current) drug therapy; Z91.030 Bee allergy status; Z88.6 Allergy status to analgesic agent

== ENCOUNTER 2017-02-20 21:49 | Emergency (ER) | payer MEDICAID, SELFPAY ==
[~2017-02-20] VITALS: Ht 160 cm; Wt 97.7 kg
[~2017-02-20 21:49] MED LIST changes: +CYCL5TAB PO; +TYLE500T78 PO
[2017-02-20] MEDS ORDERED: TRAZ-136 PO (22:01)
[2017-02-21] MEDS ORDERED: NORCO, ANEXSIA 5/325MG TABLET (HYDROcodone/ACETAMINOPHEN) PO ONE (00:30)
[2017-02-21 00:46] VITALS: BP 136/81
== END 2017-02-21 00:47 | disposition home or self-care (01) ==
LOC: M ED 21:49
DX: S70.02XA Contusion of left hip, initial encounter (principal); S40.012A Contusion of left shoulder, initial encounter; W06.XXXA Fall from bed, initial encounter; Y92.099 Unspecified place in other non-institutional residence as the place of occurrence of the external cause; Y93.9 Activity, unspecified; Y99.9 Unspecified external cause status; R56.9 Unspecified convulsions; I10 Essential (primary) hypertension; F41.9 Anxiety disorder, unspecified; Z79.899 Other long term (current) drug therapy; Z91.030 Bee allergy status; Z88.6 Allergy status to analgesic agent

== ENCOUNTER → 2017-03-14 | Outpatient (CLI) | payer OTHER ==
[~2017-03-14] MED LIST changes: +TRAZ-136 PO
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
== END ==
LOC: M PAIN 13:45
PROVIDERS: ATTEND Nurse Practitioner Family
DX: G89.29 Other chronic pain (principal); M25.552 Pain in left hip; M79.1 Myalgia; R56.9 Unspecified convulsions; E66.9 Obesity, unspecified; E55.9 Vitamin D deficiency, unspecified; E53.8 Deficiency of other specified B group vitamins; J30.1 Allergic rhinitis due to pollen; E61.1 Iron deficiency; F31.30 Bipolar disorder, current episode depressed, mild or moderate severity, unspecified; F43.10 Post-traumatic stress disorder, unspecified; F41.9 Anxiety disorder, unspecified; F51.01 Primary insomnia; I10 Essential (primary) hypertension; R51 Headache; Z79.899 Other long term (current) drug therapy

== ENCOUNTER → 2017-04-05 | Outpatient (CLI) | payer MEDICAID ==
[~2017-04-05] MED LIST changes: +BUPIVACAINE HCL 0.25% 10 ML VIAL As Ordered ONE; +BUPIVACAINE HCL 0.25% 30 ML VIAL As Ordered ONE; +TRIAMCINOLONE ACETONIDE SUSP 40 MG/ML VIAL (J3301) As Ordered ONE; +diazePAM 5 MG TAB As Ordered ONE; +oxyCODONE 5MG TAB As Ordered ONE
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
== END ==
LOC: M PAIN 14:45
PROVIDERS: ATTEND Anesthesiology
DX: G89.29 Other chronic pain (principal); M54.5 Low back pain; M79.1 Myalgia; E66.9 Obesity, unspecified; E55.9 Vitamin D deficiency, unspecified; E53.8 Deficiency of other specified B group vitamins; J30.1 Allergic rhinitis due to pollen; E61.1 Iron deficiency; F31.30 Bipolar disorder, current episode depressed, mild or moderate severity, unspecified; F43.10 Post-traumatic stress disorder, unspecified; F41.9 Anxiety disorder, unspecified; F51.01 Primary insomnia; I10 Essential (primary) hypertension; Z68.39 Body mass index [BMI] 39.0-39.9, adult; Z79.899 Other long term (current) drug therapy
CPT/HCPCS: 20552; J3301

== ENCOUNTER → 2017-05-10 | Outpatient (CLI) | payer OTHER ==
[~2017-05-10] MED LIST changes: -BUPIVACAINE HCL 0.25% 10 ML VIAL As Ordered ONE; -BUPIVACAINE HCL 0.25% 30 ML VIAL As Ordered ONE; -TRIAMCINOLONE ACETONIDE SUSP 40 MG/ML VIAL (J3301) As Ordered ONE; -diazePAM 5 MG TAB As Ordered ONE; -oxyCODONE 5MG TAB As Ordered ONE
== END ==
LOC: M OUTALCOH 07:44
PROVIDERS: ATTEND Psychiatry & Neurology Psychiatry
DX: F11.20 Opioid dependence, uncomplicated (principal); F14.20 Cocaine dependence, uncomplicated; F10.20 Alcohol dependence, uncomplicated

== ENCOUNTER 2017-06-19 10:00 | Outpatient (RCR) | payer MEDICAID, OTHER | END 2017-06-21 | LOC: M OUTALCOH 10:00 | PROVIDERS: ATTEND Psychiatry & Neurology Psychiatry | DX: F14.20 Cocaine dependence, uncomplicated (principal); F10.20 Alcohol dependence, uncomplicated; F12.20 Cannabis dependence, uncomplicated; F11.20 Opioid dependence, uncomplicated ==

== ENCOUNTER 2017-06-26 10:43 | Outpatient (RCR) | payer MEDICAID | END 2017-07-22 | LOC: M OUTALCOH 10:43 | DX: F14.20 Cocaine dependence, uncomplicated (principal); F10.20 Alcohol dependence, uncomplicated; F12.20 Cannabis dependence, uncomplicated; F11.20 Opioid dependence, uncomplicated ==

== ENCOUNTER 2017-07-06 12:30 | Emergency (ER) | payer MEDICAID, OTHER ==
[~2017-07-06] VITALS: Ht 160 cm; Wt 94.5 kg
[2017-07-06] MEDS ORDERED: CLON0.3T PO (12:36)
[2017-07-06] MEDS ORDERED: SERO1TAB PO (12:36)
[2017-07-06] MEDS ORDERED: ONDANSETRON 4 MG ORAL DISINTEGRATING TAB (S0181) PO ONE (13:30)
[2017-07-06 13:45] LABS: BASO % 0.4 % (0.0-1.0); EOS % 0.8 % (0.0-3.0); IMMATURE GRANULOCYTE % 0.2 % (0-0); LYMPH % 40.5 % (24.0-44.0); MEAN CORPUSCULAR HEMOGLOBIN 25.5 pg (27.0-33.0); MEAN CORPUSCULAR HGB CONC 31.3 g/dl (32.0-36.5); MEAN CORPUSCULAR VOLUME 81.7 fl (80.0-96.0); MONO # 0.4 10^3/uL (0.0-0.8); MONO % 7.5 % (0.0-5.0); NEUTROPHILS # 2.5 10^3/uL (1.8-7.7); NEUTROPHILS % 50.6 % (36.0-66.0); PLATELET COUNT, AUTOMATED 377 10^3/uL (150-450); RED CELL DISTRIBUTION WIDTH 13.5 % (11.5-14.5)
[2017-07-06 14:18] LABS: ALBUMIN 3.3 GM/DL (3.2-5.2); ALBUMIN/GLOBULIN RATIO 0.94 (1.00-1.93); ALKALINE PHOSPHATASE 88 U/L (45-117); ALT/SGPT 12 U/L (12-78); ANION GAP 11 MEQ/L (8-16); AST/SGOT 8 U/L (7-37); BILIRUBIN,DIRECT < 0.1 MG/DL (0.0-0.2); BILIRUBIN,TOTAL 0.3 MG/DL (0.2-1.0); BLOOD UREA NITROGEN 7 MG/DL (7-18); CALCIUM LEVEL 8.4 MG/DL (8.5-10.1); CARBON DIOXIDE LEVEL 22 MEQ/L (21-32); CHLORIDE LEVEL 110 MEQ/L (98-107); CREATININE FOR GFR 0.82 MG/DL (0.55-1.02); GLOMERULAR FILTRATION RATE > 60.0 (>58); GLUCOSE, FASTING 96 MG/DL (70-105); POTASSIUM SERUM 4.2 MEQ/L (3.5-5.1); SODIUM LEVEL 143 MEQ/L (136-145); TOTAL PROTEIN 6.8 GM/DL (6.4-8.2)
[2017-07-06] MEDS ORDERED: FLON1SPR (14:39)
[2017-07-06] MEDS ORDERED: ZOFR4TAB3 PO (14:39)
[2017-07-06 15:00] VITALS: BP 123/68
== END 2017-07-06 15:02 | disposition home or self-care (01) ==
LOC: M ED 12:30
DX: J06.9 Acute upper respiratory infection, unspecified (principal); R11.2 Nausea with vomiting, unspecified; Z98.84 Bariatric surgery status; R56.9 Unspecified convulsions; I10 Essential (primary) hypertension; F41.9 Anxiety disorder, unspecified; F32.9 Major depressive disorder, single episode, unspecified; Z79.899 Other long term (current) drug therapy; Z91.030 Bee allergy status; Z88.6 Allergy status to analgesic agent

== ENCOUNTER → 2017-08-24 | Outpatient (REF) | payer MEDICAID | LOC: M LAB REF 12:15 | DX: L03.211 Cellulitis of face (principal) ==

== ENCOUNTER 2018-01-08 18:30 | Emergency (ER) | payer OTHER, MEDICAID ==
[2018-01-08] MEDS: NORCO 5/325MG TABLET (BULK FOR ED) PO (20:45)
== END 2018-01-08 21:08 | disposition home or self-care (01) ==
LOC: M ED 18:30
DX: S40.012A Contusion of left shoulder, initial encounter (principal); S70.02XA Contusion of left hip, initial encounter; M16.12 Unilateral primary osteoarthritis, left hip; W18.2XXA Fall in (into) shower or empty bathtub, initial encounter; Y92.091 Bathroom in other non-institutional residence as the place of occurrence of the external cause; I10 Essential (primary) hypertension; R56.9 Unspecified convulsions; K21.9 Gastro-esophageal reflux disease without esophagitis; F41.9 Anxiety disorder, unspecified; F31.9 Bipolar disorder, unspecified; Z88.8 Allergy status to other drugs, medicaments and biological substances; Z91.030 Bee allergy status; Z79.899 Other long term (current) drug therapy
CPT/HCPCS: 73030

== ENCOUNTER 2018-01-12 19:06 | Emergency (ER) | payer OTHER ==
[2018-01-12] MEDS: ALPRAZolam 0.5 MG TAB PO (20:17)
== END 2018-01-12 20:28 | disposition home or self-care (01) ==
LOC: M ED 19:06
DX: F41.1 Generalized anxiety disorder (principal); R42 Dizziness and giddiness; R00.1 Bradycardia, unspecified; I10 Essential (primary) hypertension; R56.9 Unspecified convulsions; F31.9 Bipolar disorder, unspecified; Z98.84 Bariatric surgery status; Z79.899 Other long term (current) drug therapy; Z91.030 Bee allergy status; Z88.6 Allergy status to analgesic agent
CPT/HCPCS: 93005

== ENCOUNTER 2018-01-16 11:31 | Emergency (ER) | payer OTHER ==
[2018-01-16] MEDS: diphenhydrAMINE 25 MG CAP PO (12:42)
== END 2018-01-16 12:50 | disposition home or self-care (01) ==
LOC: M ED 11:31
DX: S93.402A Sprain of unspecified ligament of left ankle, initial encounter (principal); L25.9 Unspecified contact dermatitis, unspecified cause; X58.XXXA Exposure to other specified factors, initial encounter; Y92.099 Unspecified place in other non-institutional residence as the place of occurrence of the external cause; Y93.9 Activity, unspecified; Y99.9 Unspecified external cause status; R56.9 Unspecified convulsions; I10 Essential (primary) hypertension; K21.9 Gastro-esophageal reflux disease without esophagitis; Z98.84 Bariatric surgery status; Z79.899 Other long term (current) drug therapy; Z91.030 Bee allergy status; Z88.6 Allergy status to analgesic agent
CPT/HCPCS: 99282

== ENCOUNTER 2018-02-01 17:17 | Emergency (ER) | payer OTHER | END 2018-02-01 18:40 | disposition home or self-care (01) | LOC: M ED 17:17 | DX: S60.041A Contusion of right ring finger without damage to nail, initial encounter (principal); X58.XXXA Exposure to other specified factors, initial encounter; Y92.018 Other place in single-family (private) house as the place of occurrence of the external cause; I10 Essential (primary) hypertension; R56.9 Unspecified convulsions; Z98.84 Bariatric surgery status; Z79.899 Other long term (current) drug therapy; Z88.8 Allergy status to other drugs, medicaments and biological substances; Z91.030 Bee allergy status | CPT/HCPCS: 73140 ==

== ENCOUNTER 2018-03-27 18:16 | Emergency (ER) | payer OTHER ==
[2018-03-27 18:59] LABS: BASO % 0.3 % (0.0-1.0); EOS # 0.1 10^3/uL (0.0-0.50); HEMATOCRIT 42.7 % (36.0-47.0); HEMOGLOBIN 13.9 g/dl (12.0-15.5); IMMATURE GRANULOCYTE % 0.3 % (0-3.0); LYMPH # 2.5 10^3/uL (1.5-4.5); LYMPH % 37.6 % (24.0-44.0); MEAN CORPUSCULAR HEMOGLOBIN 29.8 pg (27.0-33.0); MEAN CORPUSCULAR HGB CONC 32.6 g/dl (32.0-36.5); MEAN CORPUSCULAR VOLUME 91.4 fl (80.0-96.0); MONO # 0.5 10^3/uL (0.0-0.8); MONO % 7.9 % (0.0-5.0); NEUTROPHILS # 3.5 10^3/uL (1.8-7.7); NEUTROPHILS % 52.9 % (36.0-66.0); PLATELET COUNT, AUTOMATED 303 10^3/uL (150-450); RED BLOOD COUNT 4.67 10^6/uL (4.00-5.40); RED CELL DISTRIBUTION WIDTH 13.4 % (11.5-14.5); WHITE BLOOD COUNT 6.7 10^3/uL (4.0-10.0)
[2018-03-27 19:05] LABS: ANION GAP 13 MEQ/L (8-16); BLOOD UREA NITROGEN 9 MG/DL (7-18); CALCIUM LEVEL 8.2 MG/DL (8.5-10.1); CARBON DIOXIDE LEVEL 16 MEQ/L (21-32); CHLORIDE LEVEL 118 MEQ/L (98-107); CREATININE FOR GFR 0.88 MG/DL (0.55-1.30); GLOMERULAR FILTRATION RATE > 60.0 (>58); GLUCOSE, FASTING 54 MG/DL (70-100); POTASSIUM SERUM 3.2 MEQ/L (3.5-5.1); SODIUM LEVEL 147 MEQ/L (136-145)
[2018-03-27] MEDS: diphenhydrAMINE INJ 50MG/ML VIAL (J1200) IV (19:35)
[2018-03-27] MEDS: methylPREDNISolone INJ 125 MG/2 ML VIAL (J2930) IV (19:38)
[2018-03-27] MEDS: FAMOTIDINE INJ 20MG/2ML VIAL (S0028) IVP (19:40)
[2018-03-27 21:02] LABS: BEDSIDE GLUCOSE 103 MG/DL (70-105)
[2018-03-27 21:16] LABS: VENOUS O2 SATURATION 96.2 % (60.0-80.0); VENOUS PARTIAL PRESSURE CO2 29.2 mmHg (38.0-50.0); VENOUS PARTIAL PRESSURE O2 86.1 mmHg (30.0-50.0); VENOUS PH 7.357 UNITS (7.330-7.430); VENOUS TOTAL CO2 16.9 MEQ/L (24.0-28.0)
[2018-03-27] MEDS ORDERED: ACETAMINOPHEN TAB 650MG DOSE (2X325MG) PO (22:15)
[2018-03-27] MEDS: POTASSIUM CHLORIDE 10 MEQ SR TABLET PO (23:20)
[2018-03-27] MEDS: NORCO, ANEXSIA 5/325MG TABLET (HYDROcodone/ACETAMINOPHEN) PO (23:40)
[2018-03-27] MEDS ORDERED: NORCO, ANEXSIA 5/325MG TABLET (HYDROcodone/ACETAMINOPHEN) As Ordered (23:47)
== END 2018-03-27 23:45 | disposition home or self-care (01) ==
LOC: M ED 18:16
DX: T63.441A Toxic effect of venom of bees, accidental (unintentional), initial encounter (principal); Z91.030 Bee allergy status; Z88.8 Allergy status to other drugs, medicaments and biological substances
CPT/HCPCS: J1200

== ENCOUNTER 2018-08-27 10:48 | Emergency (ER) | payer OTHER ==
[~2018-08-27] VITALS: Ht 160 cm; Wt 95.0 kg
[2018-08-27 10:48] VITALS: BP 185/97
[~2018-08-27 10:48] MED LIST changes: -AMLO2.5T PO; +AMLO2.5T3 PO; +CLON0.3T PO; +FLON1SPR; +HYDR-3719; +OXYC10TA3 PO; -OXYC1TAB16 PO; +QUET1TAB9; +SERO1TAB PO; +TIZA4CAP PO; -TIZA4CAP3 PO; +TOPI100T9 PO; -TRAZ-136 PO; +TRAZ-163 PO; +TRIA1CR80 TOP; +VENL150C43; +VENTAER; -ZANT300T PO; +ZANT300T9 PO; +ZOFR4TAB14 PO; -ZOFR4TAB3 PO
[2018-08-27] MEDS ORDERED: CYCL10TA (11:01)
[2018-08-27] MEDS ORDERED: OXYC15TA76 (11:01)
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
== END 2018-08-27 12:46 | disposition home or self-care (01) ==
LOC: M ED 10:48
DX: S60.221A Contusion of right hand, initial encounter (principal); W23.0XXA Caught, crushed, jammed, or pinched between moving objects, initial encounter; Y92.018 Other place in single-family (private) house as the place of occurrence of the external cause; I10 Essential (primary) hypertension; Z98.84 Bariatric surgery status; Z79.899 Other long term (current) drug therapy; Z88.8 Allergy status to other drugs, medicaments and biological substances; Z91.030 Bee allergy status

== ENCOUNTER 2019-01-02 18:51 | Emergency (ER) | payer OTHER ==
[~2019-01-02] VITALS: Ht 160 cm; Wt 94.1 kg
[~2019-01-02 18:51] MED LIST changes: -/LAMO10TA OR; +CYCL10TA; +LAMI1TAB7 OR; -LEVORA PO; +OXYC15TA76; +TRAZ1TAB10 PO; -TRAZO50TA PO; +[UNRECOGNIZED DRUG - CODE] PO
[2019-01-02] MEDS ORDERED: FERR325T18 (18:57)
[2019-01-02] MEDS ORDERED: QUET1TAB9 (18:57)
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
[2019-01-02] MEDS ORDERED: CYCL10TA PO (20:24)
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
[2019-01-02] MEDS ORDERED: CYCLOBENZAPRINE 10 MG TAB PO ONE (20:30)
[2019-01-02 21:04] VITALS: BP 166/94
== END 2019-01-02 21:10 | disposition home or self-care (01) ==
LOC: M ED 18:51
DX: S13.4XXA Sprain of ligaments of cervical spine, initial encounter (principal); S61.316A Laceration without foreign body of right little finger with damage to nail, initial encounter; W01.0XXA Fall on same level from slipping, tripping and stumbling without subsequent striking against object, initial encounter; Y92.018 Other place in single-family (private) house as the place of occurrence of the external cause; Z88.8 Allergy status to other drugs, medicaments and biological substances; Z91.030 Bee allergy status

== ENCOUNTER 2019-02-19 20:17 | Inpatient (IN) | payer OTHER ==
[~2019-02-19] VITALS: Ht 160 cm; Wt 93.8 kg
[~2019-02-19 20:17] MED LIST changes: +CYCL10TA PO; +FERR325T18 PO; +QUET1TAB9 PO; -VENL150C43; +VENL150C43 PO
[2019-02-19] MEDS ORDERED: QUEtiapine FUMARATE 200 MG TAB PO SCH (21:00)
[2019-02-19] MEDS ORDERED: VENLAFAXINE **XR** 75MG CAPSULE PO SCH (21:00)
[2019-02-19] MEDS ORDERED: TOPIRAMATE (TopAMAX) 100 MG TAB PO SCH (21:00)
[2019-02-19] MEDS ORDERED: PROPRANOLOL 20 MG TAB PO SCH (21:00)
[2019-02-19] MEDS: NS 1,000 ML IV SCH (21:27)
[2019-02-19 21:42] LABS: BASO # 0.1 10^3/uL (0.0-0.2); BASO % 0.6 % (0.0-1.0); EOS # 0.4 10^3/uL (0.0-0.50); EOS % 3.8 % (0.0-3.0); HEMATOCRIT 43.1 % (36.0-47.0); LYMPH # 1.2 10^3/uL (1.5-4.5); MEAN CORPUSCULAR HEMOGLOBIN 29.5 pg (27.0-33.0); MEAN CORPUSCULAR HGB CONC 32.5 g/dl (32.0-36.5); MEAN CORPUSCULAR VOLUME 90.7 fl (80.0-96.0); MONO # 0.7 10^3/uL (0.0-0.8); MONO % 6.1 % (0.0-5.0); NEUTROPHILS # 8.7 10^3/uL (1.8-7.7); NEUTROPHILS % 78.2 % (36.0-66.0); PLATELET COUNT, AUTOMATED 360 10^3/uL (150-450); RED BLOOD COUNT 4.75 10^6/uL (4.00-5.40); WHITE BLOOD COUNT 11.1 10^3/uL (4.0-10.0)
[2019-02-19 21:58] LABS: INR 1.01
[2019-02-19 22:06] LABS: HCG, SERUM QUALITATIVE NEGATIVE (NEGATIVE)
[2019-02-19 22:08] LABS: BLOOD UREA NITROGEN 23 MG/DL (7-18); CALCIUM LEVEL 8.8 MG/DL (8.5-10.1); CARBON DIOXIDE LEVEL 20 MEQ/L (21-32); CHLORIDE LEVEL 106 MEQ/L (98-107); CK-MB VALUE MASS 9.1 NG/ML (<3.6); CPK CREATINE PHOSPHOKINASE 560 U/L (26-192); CREATININE FOR GFR 2.04 MG/DL (0.55-1.30); ETHYL ALCOHOL (ETHANOL) < 0.003 % (0.000-0.010); GLOMERULAR FILTRATION RATE 28.2 (>58); GLUCOSE, FASTING 92 MG/DL (70-100); MB/CK RELATIVE INDEX 1.62 (< OR =4); POTASSIUM SERUM 4.3 MEQ/L (3.5-5.1); SODIUM LEVEL 138 MEQ/L (136-145); TROPONIN I < 0.02 NG/ML (< 0.10)
--- NOTE | 2019-02-19 23:09 | REPVR ---
EXAM: CT Maxillofacial Without Contrast EXAM DATE/TIME: 02/19/2019 10:34 PM CLINICAL HISTORY: 43 years old, female; Face pain; Additional Info: Syncope TECHNIQUE: Imaging protocol: Computed tomography images of the face without contrast. Coronal and sagittal reformatted images were created and reviewed. Radiation optimization: All CT scans at this facility use at least one of these dose optimization techniques: automated exposure control; mA and/or kV adjustment per patient size (includes targeted exams where dose is matched to clinical indication); or iterative reconstruction. COMPARISON: CT Maxilofacial w/out contrast 12/23/2016 5:06 PM FINDINGS: Orbits: Orbits are normal. Globes are unremarkable. Auditory system: There is cerumen in the bilateral external auditory canals. Sinuses: Normal. No air-fluid levels. Frontal sinuses are underpneumatized which is a normal variant. Bones/joints: No acute fracture. Mentum of the mandible is not fully imaged on this study. Dental: Patient is nearly edentulous. Soft tissues: Unremarkable. IMPRESSION: 1. No acute fracture. 2. Patient is nearly edentulous. Electronically signed by: Aida Ramirez On 02/19/2019 23:09:36 PM
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
--- NOTE | 2019-02-19 23:16 | REPVR ---
EXAM: CT Cervical Spine Without Contrast EXAM DATE/TIME: 02/19/2019 10:34 PM CLINICAL HISTORY: 43 years old, female; Neck pain; Additional Info: Syncope TECHNIQUE: Imaging protocol: Computed tomography images of the cervical spine without contrast. Coronal and sagittal reformatted images were created and reviewed. Radiation optimization: All CT scans at this facility use at least one of these dose optimization techniques: automated exposure control; mA and/or kV adjustment per patient size (includes targeted exams where dose is matched to clinical indication); or iterative reconstruction. COMPARISON: CT Spine,cervical w/o contrast 01/02/2019 7:18 PM FINDINGS: Vertebrae: No acute fracture. Normal alignment. There is straightening of the normal cervical vertebral curvature which is probably positional. C2-C3: No disc herniation. No spinal stenosis. No neural foraminal narrowing. C3-C4: No disc herniation. No spinal stenosis. No neural foraminal narrowing. C4-C5: No disc herniation. No spinal stenosis. No neural foraminal narrowing. C5-C6: No disc herniation. No spinal stenosis. No neural foraminal narrowing. C6-C7: No disc herniation. No spinal stenosis. No neural foraminal narrowing. C7-T1: No disc herniation. No spinal stenosis. No neural foraminal narrowing. Soft tissues: Unremarkable. Lungs: Lung apices are normal. IMPRESSION: No acute fracture. Electronically signed by: Aida Ramirez On 02/19/2019 23:15:48 PM
--- NOTE | 2019-02-19 23:21 | REPVR ---
EXAM: CT Chest Without Contrast EXAM DATE/TIME: 02/19/2019 10:34 PM CLINICAL HISTORY: 43 years old, female; Chest pain; Additional Info: Syncope TECHNIQUE: Imaging protocol: Axial computed tomography images of the chest without intravenous contrast. Coronal and sagittal reformatted images were created and reviewed. Radiation optimization: All CT scans at this facility use at least one of these dose optimization techniques: automated exposure control; mA and/or kV adjustment per patient size (includes targeted exams where dose is matched to clinical indication); or iterative reconstruction. COMPARISON: No relevant prior studies available. FINDINGS: Lungs: No consolidation. No masses. Calcified granuloma in the right lower lobe. Pleural space: Unremarkable. No pneumothorax. No pleural effusion. Heart: Unremarkable. No cardiomegaly. No pericardial effusion. Aorta: Unremarkable. No aortic aneurysm. Lymph nodes: Unremarkable. No enlarged lymph nodes. Bones/joints: Status post left shoulder replacement. Mild degenerative spine. Mild chronic compression deformities of T7 and T8. No acute fracture. Soft tissues: Unremarkable. Gallbladder and bile ducts: Status post cholecystectomy. Stomach and bowel: Moderate sliding type gastric hiatal hernia. IMPRESSION: 1. No acute consolidation. 2. Moderate sliding type gastric hiatal hernia. 3. See also CT abdomen pelvis report. Electronically signed by: Aida Ramirez On 02/19/2019 23:20:35 PM
--- NOTE | 2019-02-19 23:27 | REPVR ---
EXAM: CT Abdomen and Pelvis Without Contrast EXAM DATE/TIME: 02/19/2019 10:34 PM CLINICAL HISTORY: 43 years old, female; Abdominal pain; Generalized; Additional Info: Syncope TECHNIQUE: Imaging protocol: Axial computed tomography images of the abdomen and pelvis without contrast. Coronal and sagittal reformatted images were created and reviewed. Radiation optimization: All CT scans at this facility use at least one of these dose optimization techniques: automated exposure control; mA and/or kV adjustment per patient size (includes targeted exams where dose is matched to clinical indication); or iterative reconstruction. COMPARISON: CT ABD PELVIS WITH CONTRAST 01/13/2016 10:59 PM FINDINGS: Limitations: Examination is limited by motion artifact. Liver: Normal. No mass. Gallbladder and bile ducts: Status post cholecystectomy. CBD measures 8 mm in diameter. Pancreas: Normal. No ductal dilation. Spleen: Normal. No splenomegaly. Adrenals: Normal. No mass. Kidneys and ureters: Normal. No hydronephrosis. Stomach and bowel: Small sliding-type gastric hiatal hernia. Status post gastric bypass surgery. Excluded gastric pouch is distended with fluid, of unknown significance. No abnormal bowel wall thickening. Negative for colonic diverticulitis. Redundant right colon. Right colon is distended with transition point in the mid transverse colon. Appendix: The appendix is not seen. However, there is no evidence of appendicitis. Intraperitoneal space: Normal. No free air. No significant fluid collection. Vasculature: Normal. No abdominal aortic aneurysm. Lymph nodes: Normal. No enlarged lymph nodes. Bladder: Unremarkable as visualized. Reproductive: Uterus is normal. Bones/joints: Mild degenerative spine. Status post total left hip replacement. No acute fracture. Soft tissues: Status post lower ventral abdominal wall surgery.There is dependent subcutaneous edema. IMPRESSION: 1. Small sliding-type gastric hiatal hernia. 2. Status post gastric bypass surgery. 3. Right colon is distended of unknown clinical significance. Partial colonic obstruction cannot be excluded. 4. Excluded gastric pouch is distended with fluid, of unknown significance. 5. Additional findings as described. Electronically signed by: Aida Ramirez On 02/19/2019 23:27:03 PM
[2019-02-19] MEDS ORDERED: MORPHINE 4 MG/ML 1ML VIAL/SYRINGE (J2270) IV ONE (23:45)
[2019-02-19] MEDS ORDERED: ONDANSETRON 4MG/2ML VIAL (J2405) IV ONE (23:45)
[2019-02-20] MEDS ORDERED: MULTCAP PO (00:18)
[2019-02-20] MEDS ORDERED: OXYC15TA76 PO (00:18)
[2019-02-20] MEDS ORDERED: TOPI100T9 PO (00:18)
[2019-02-20] MEDS ORDERED: PROP20TA72 PO (00:18)
[2019-02-20] MEDS ORDERED: CLON0.3T PO (00:19)
[2019-02-20 01:26] LABS: AMPHETAMINES LEVEL URINE NEGATIVE (NEGATIVE); BARBITURATES URINE NEGATIVE (NEGATIVE); BENZODIAZEPINES URINE NEGATIVE (NEGATIVE); CANNABINOIDS URINE NEGATIVE (NEGATIVE); COCAINE METABOLITE URINE NEGATIVE (NEGATIVE); METHADONE URINE NEGATIVE (NEGATIVE); OPIATES URINE POSITIVE (NEGATIVE); PHENCYCLIDINE URINE NEGATIVE (NEGATIVE)
[2019-02-20] MEDS: NS 1,000 ML IV SCH (01:27)
[2019-02-20] MEDS ORDERED: ONDANSETRON 4MG/2ML VIAL (J2405) IV PRN (01:30)
[2019-02-20] MEDS ORDERED: NS 1,000 ML IV SCH (01:30)
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
[2019-02-20] MEDS ORDERED: D5W/0.9% SODIUM CHLORIDE 1,000 ML IV SCH (03:30)
[2019-02-20 04:24] VITALS: BP 134/70
[2019-02-20 05:09] LABS: BASO % 0.5 % (0.0-1.0); EOS # 0.4 10^3/uL (0.0-0.50); EOS % 5.6 % (0.0-3.0); HEMATOCRIT 38.2 % (36.0-47.0); HEMOGLOBIN 12.3 g/dl (12.0-15.5); LYMPH # 0.9 10^3/uL (1.5-4.5); LYMPH % 14.9 % (24.0-44.0); MEAN CORPUSCULAR HEMOGLOBIN 28.5 pg (27.0-33.0); MEAN CORPUSCULAR HGB CONC 32.2 g/dl (32.0-36.5); MEAN CORPUSCULAR VOLUME 88.6 fl (80.0-96.0); MONO # 0.4 10^3/uL (0.0-0.8); MONO % 6.7 % (0.0-5.0); NEUTROPHILS # 4.5 10^3/uL (1.8-7.7); PLATELET COUNT, AUTOMATED 273 10^3/uL (150-450); RED BLOOD COUNT 4.31 10^6/uL (4.00-5.40); WHITE BLOOD COUNT 6.3 10^3/uL (4.0-10.0)
[2019-02-20 05:19] VITALS: BP 98/53
[2019-02-20 05:20] VITALS: BP 96/49
[2019-02-20 05:38] LABS: CALCIUM LEVEL 8.6 MG/DL (8.5-10.1); CREATININE FOR GFR 1.51 MG/DL (0.55-1.30); GLOMERULAR FILTRATION RATE 39.9 (>58); POTASSIUM SERUM 3.4 MEQ/L (3.5-5.1)
--- NOTE | 2019-02-20 07:52 | REPVR ---
EXAM: US Duplex Bilateral Extracranial Arteries EXAM DATE/TIME: 02/20/2019 7:00 AM CLINICAL HISTORY: 43 years old, female; Dizziness; Additional Info: syncope TECHNIQUE: Imaging protocol: Real-time Duplex ultrasound scan of the Bilateral carotid and vertebral arteries combining tidwell scale, color Doppler and spectral waveform analysis. COMPARISON: CT Head without contrast 02/19/2019 10:26 PM FINDINGS: Limitations: Patient could not hold still for the study. Right common carotid artery: Unremarkable. No occlusion or stenosis. Waveforms are normal. PICC systolic velocity is 95 cm/s. Right internal carotid artery: Unremarkable. No occlusion or stenosis. Waveforms are normal. Peak systolic velocity is 111 cm/s. Right ICA/CCA ratio: Within normal limits. Ratio is 1.2. Right external carotid artery: No stenosis in the origin. Right vertebral artery: Unremarkable. Antegrade flow Left common carotid artery: Unremarkable. No occlusion or stenosis. Waveforms are normal. Peak systolic velocity is 91 cm/s. Left internal carotid artery: Unremarkable. No occlusion or stenosis. Waveforms are normal. Peak systolic velocity is 69 cm/s. Left ICA/CCA ratio: Within normal limits. Ratio is 0.8. Left external carotid artery: No stenosis in the origin. Left vertebral artery: Unremarkable. Antegrade flow. IMPRESSION: No carotid artery stenosis. COMMENT: Carotid Stenosis Reference using SRU criteria: Mild: less than 50% stenosis. ICA PSV is less than 125 cm/second and plaque or intimal thickening is visible. Moderate: 50-69% stenosis. ICA PSV is 125 to 230 cm/second and plaque is visible. Severe: 70-94% stenosis. ICA PSV is more than 230 cm/second and visible plaque and lumen narrowing are seen. Near occlusion: 95-99% stenosis. ICA PSV is variable and significant plaque and luminal narrowing are seen. Occluded: 100% stenosis. No flow identified. Electronically signed by: Aida Ramirez On 02/20/2019 07:52:06 AM
--- NOTE | 2019-02-20 07:53 | REP ---
AP pelvis: There is no pelvic fracture. There is a left hip arthroplasty. There are surgical clips and calcifications. The sacroiliac articulations are unremarkable. The right hip is unremarkable. Impression: No pelvic fracture. Left hip two views: There is a total hip arthroplasty. There is no fracture or dislocation. There is no arthroplasty loosening. Impression: No fracture or arthroplasty loosening. Electronically Signed by Homero Ortega MD 02/20/2019 07:44 A
[2019-02-20 08:28] VITALS: BP 103/64
[2019-02-20] MEDS ORDERED: HEPARIN SOD (PORCINE) 5000 UNITS/ML VIAL SC SCH (09:00)
[2019-02-20] MEDS ORDERED: PANTOPRAZOLE 40MG INJ (PROTONIX) (C9113) IV SCH (09:00)
[2019-02-20] MEDS ORDERED: FERROUS SULFATE 325MG TAB PO SCH (09:00)
[2019-02-20] MEDS ORDERED: POTASSIUM CHLORIDE 10 MEQ SR TABLET PO ONE (10:00)
--- NOTE | 2019-02-20 14:51 | IPNPDOC ---
Text Note Date of Service The patient was seen on 02/20/19. NOTE S: patient admitted today with syncope, KYLE and diarrhea. H&P reviewed. Unfo rtunately she left AMA this AM without being seen. O: Vitals as below A/P: Syncope - tele, echo pending. KYLE -improved with IVF. most likely due to dehydration from N/V/Diarrhea Diarrhea -stool studies pending. VS,Fishbone, I+O VS, Fishbone, I+O Laboratory Tests 02/19/19 21:21 Red Blood Count 4.75, Mean Corpuscular Volume 90.7, Mean Corpuscular Hemoglobin 29.5, Mean Corpuscular Hemoglobin Concent 32.5, Red Cell Distribution Width 13.2, Neutrophils (%) (Auto) 78.2 H, Lymphocytes (%) (Auto) 11.0 L, Monocytes (%) (Auto) 6.1 H, Eosinophils (%) (Auto) 3.8 H, Basophils (%) (Auto) 0.6, Neutrophils # (Auto) 8.7 H, Lymphocytes # (Auto) 1.2 L, Monocytes # (Auto) 0.7, Eosinophils # (Auto) 0.4, Basophils # (Auto) 0.1, Calcium Level 8.8, Total Creatine Kinase 560 H 02/20/19 04:50 Red Blood Count 4.31, Mean Corpuscular Volume 88.6, Mean Corpuscular Hemoglobin 28.5, Mean Corpuscular Hemoglobin Concent 32.2, Red Cell Distribution Width 13.2, Neutrophils (%) (Auto) 72.0 H, Lymphocytes (%) (Auto) 14.9 L, Monocytes (%) (Auto) 6.7 H, Eosinophils (%) (Auto) 5.6 H, Basophils (%) (Auto) 0.5, Neutrophils # (Auto) 4.5, Lymphocytes # (Auto) 0.9 L, Monocytes # (Auto) 0.4, Eosinophils # (Auto) 0.4, Basophils # (Auto) 0.0, Calcium Level 8.6 Vital Signs Date Time Temp Pulse Resp B/P (MAP) Pulse Ox O2 Delivery O2 Flow Rate FiO2 02/20/19 08:28 96.6 76 19 103/64 (77) 95 02/20/19 02:10 Room Air I&O- Last 24 Hours up to 6 AM 02/20/19 05:59 Intake Total 1000 ml Balance 1000 ml INA BALL DO Feb 20, 2019 09:10
--- NOTE | 2019-02-20 14:55 | DS.PDOC ---
Discharge Summary General Date of Admission Feb 20, 2019 at 01:26 Date of Discharge 02/20/19 Discharge Summary PROCEDURES PERFORMED DURING STAY: none DISCHARGE DIAGNOSES: Syncope - DONNIE - dehydration N/V/Diarrhea COMPLICATIONS/CHIEF COMPLAINT: Donnie (Acute Kidney Injury), Syncope. HISTORY OF PRESENT ILLNESS: See H&P for details HOSPITAL COURSE: patient received IVF and then left AMA this AM. DISCHARGE MEDICATIONS: Please see below. ALLERGIES: Please see below. LABORATORY DATA: Please see below. DISPOSITION: 07 Against Medical Advice. ITEMS TO FOLLOWUP ON ON OUTPATIENT: 1. ECHO Vital Signs/I&Os Vital Signs Date Time Temp Pulse Resp B/P (MAP) Pulse Ox O2 Delivery O2 Flow Rate FiO2 02/20/19 08:28 96.6 76 19 103/64 (77) 95 02/20/19 02:10 Room Air I&O- Last 24 Hours up to 6 AM 02/20/19 06:00 Intake Total 1000 ml Balance 1000 ml Laboratory Data Labs 24H Laboratory Tests 2 02/19/19 21:21: Immature Granulocyte % (Auto) 0.3, White Blood Count 11.1H, Red Blood Count 4.75, Hemoglobin 14.0, Hematocrit 43.1, Mean Corpuscular Volume 90.7, Mean Co rpuscular Hemoglobin 29.5, Mean Corpuscular Hemoglobin Concent 32.5, Red Cell Distribution Width 13.2, Platelet Count 360, Neutrophils (%) (Auto) 78.2H, Lymphocytes (%) (Auto) 11.0L, Monocytes (%) (Auto) 6.1H, Eosinophils (%) (Auto) 3.8H, Basophils (%) (Auto) 0.6, Neutrophils # (Auto) 8.7H, Lymphocytes # (Auto) 1.2L, Monocytes # (Auto) 0.7, Eosinophils # (Auto) 0.4, Basophils # (Auto) 0.1, Nucleated Red Blood Cells % (auto) 0.0, Prothrombin Time 13.0, Prothromb Time International Ratio 1.01, Anion Gap 12, Glomerular Filtration Rate 28.2L, Lactic Acid Level 1.5, Blood Urea Nitrogen 23H, Creatinine 2.04H, Sodium Level 138, Potassium Level 4.3, Chloride Level 106, Carbon Dioxide Level 20L, Calcium Level 8.8, Total Creatine Kinase 560H, Creatine Kinase MB 9.1H, Creatine Kinase MB Relative Index 1.62, Troponin I < 0.02, Thyroid Stimulating Hormone (TSH) 3.320, Human Chorionic Gonadotropin, Qual NEGATIVE, Ethyl Alcohol Level < 0.003 02/20/19 00:38: Urine Amphetamines Screen NEGATIVE, Urine Benzodiazepines Screen NEGATIVE, Urine Opiates Screen POSITIVEH, Urine Methadone Screen NEGATIVE, Urine Barbiturates Screen NEGATIVE, Urine Phencyclidine Screen NEGATIVE, Urine Cocaine Metabolite Screen NEGATIVE, Urine Cannabinoids Screen NEGATIVE 02/20/19 04:50: Immature Granulocyte % (Auto) 0.3, White Blood Count 6.3, Red Blood Count 4.31, Hemoglobin 12.3, Hematocrit 38.2, Mean Corpuscular Volume 88.6, Mean Corpuscular Hemoglobin 28.5, Mean Corpuscular Hemoglobin Concent 32.2, Red Cell Distribution Width 13.2, Platelet Count 273, Neutrophils (%) (Auto) 72.0H, Lymphocytes (%) (Auto) 14.9L, Monocytes (%) (Auto) 6.7H, Eosinophils (%) (Auto) 5.6H, Basophils (%) (Auto) 0.5, Neutrophils # (Auto) 4.5, Lymphocytes # (Auto) 0.9L, Monocytes # (Auto) 0.4, Eosinophils # (Auto) 0.4, Basophils # (Auto) 0.0, Nucleated Red Blood Cells % (auto) 0.0, Anion Gap 8, Glomerular Filtration Rate 39.9L, Blood Urea Nitrogen 23H, Creatinine 1.51H, Sodium Level 138, Potassium Level 3.4#L, Chloride Level 107, Carbon Dioxide Level 23, Calcium Level 8.6 CBC/BMP Laboratory Tests 02/19/19 21:21 Red Blood Count 4.75, Mean Corpuscular Volume 90.7, Mean Corpuscular Hemoglobin 29.5, Mean Corpuscular Hemoglobin Concent 32.5, Red Cell Distribution Width 13 .2, Neutrophils (%) (Auto) 78.2 H, Lymphocytes (%) (Auto) 11.0 L, Monocytes (%) (Auto) 6.1 H, Eosinophils (%) (Auto) 3.8 H, Basophils (%) (Auto) 0.6, Neutrophils # (Auto) 8.7 H, Lymphocytes # (Auto) 1.2 L, Monocytes # (Auto) 0.7, Eosinophils # (Auto) 0.4, Basophils # (Auto) 0.1, Calcium Level 8.8, Total Creatine Kinase 560 H 02/20/19 04:50 Red Blood Count 4.31, Mean Corpuscular Volume 88.6, Mean Corpuscular Hemoglobin 28.5, Mean Corpuscular Hemoglobin Concent 32.2, Red Cell Distribution Width 13.2, Neutrophils (%) (Auto) 72.0 H, Lymphocytes (%) (Auto) 14.9 L, Monocytes (% ) (Auto) 6.7 H, Eosinophils (%) (Auto) 5.6 H, Basophils (%) (Auto) 0.5, Neutrophils # (Auto) 4.5, Lymphocytes # (Auto) 0.9 L, Monocytes # (Auto) 0.4, Eosinophils # (Auto) 0.4, Basophils # (Auto) 0.0, Calcium Level 8.6 Discharge Medications Scheduled Clonidine HCl (Clonidine HCl) 0.3 Mg Tablet, 0.3 MG PO BID, (Reported) Ferrous Sulfate (Ferrous Sulfate) 325 Mg Tablet, 325 MG PO DAILY, (Reported) Multivitamin (Multivitamins) 1 Each Capsule, 1 CAP PO DAILY, (Reported) Quetiapine Fumarate (Quetiapine Fumarate) 200 Mg Tablet, 200 MG PO QHS, (Report ed) Topiramate (Topiramate) 100 Mg Tablet, 100 MG PO BID, (Reported) Venlafaxine HCl (Venlafaxine HCl ER) 150 Mg Cap, 150 MG PO BID, (Reported) Scheduled PRN Oxycodone Hcl (Oxycodone HCl) 15 Mg Tablet, 15 MG PO Q12H PRN for PAIN, (Reported) Propranolol HCl (Propranolol HCl) 20 Mg Tablet, 20 MG PO BID PRN for CHEST PAIN, (Reported) Allergies Coded Allergies: bee pollen (Verified Allergy, Intermediate, red spots everywhere, 01/02/19) NSAIDS (Non-Steroidal Anti-Inflamma (Verified Adverse Reaction, Unknown, had gastric bypass, 01/02/19) INA BALL DO Feb 20, 2019 14:55
--- NOTE | 2019-02-20 18:42 | ECHO ---
DATE OF PROCEDURE: 02/20/2019 AGE: 43 GENDER: Female HEIGHT: 63 inches WEIGHT: 206 pounds BODY SURFACE AREA: 1.95 m2 PATIENT LOCATION: Inpatient, PCU, room 3211 REFERRING PHYSICIAN: Dr. Michelle Bhardwaj INDICATION: Syncope. 2-D MEASUREMENTS: RV: 2.9 cm LV: 4.3 cm Septum: 0.9 cm Posterior wall: 0.9 cm Aortic root: 2.7 cm LA: 3.7 cm LVEF: 75% DOPPLER MEASUREMENTS: AV: 1.2 m/s LVOT: 1.1 m/s LVOT diameter: 2.1 cm COMMENT MV-E: 66, A: 59, EA ratio: 1.1 Early mitral deceleration time: 165 ms E prime: 9.3, A prime: 10.5, E/E prime ratio: 7.1 PV: 0.85 m/s Pulmonary artery acceleration time: 92 ms RVSP: 38 mmHg IVC: 1.9 cm COMMENTS Normal sinus rhythm without intraventricular conduction disturbance. Technically challenging study in light of the patient's body habitus, but diagnostically useful information was still obtained. M-mode and two-dimensional echocardiography was performed with pulsed, continuous wave, color flow and tissue Doppler studies. Normal left ventricular size, wall thickness and wall motion. Normal left atrial size and Doppler assessment of LV diastolic function and estimated mean left atrial pressure. Normal right heart chamber sizes and motion with Doppler evidence of mild pulmonary hypertension. Normal IVC size and collapse against an elevated central venous pressure. Normal appearing and functioning valvular structures. Normal aortic dimensions. No apparent intracardiac mass or pericardial effusion.
--- NOTE | 2019-02-21 21:38 | ECGEPIP ---
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
== END 2019-02-20 10:55 | disposition left against medical advice (07) | DRG 249 ==
LOC: M ED 20:17 → M ED INP 02-20 01:26 → M PCU 02-20 03:52
PROVIDERS: ADMIT Internal Medicine Nephrology; ATTEND Family Medicine
DX: E86.0 Dehydration (principal); N17.9 Acute kidney failure, unspecified; K52.9 Noninfective gastroenteritis and colitis, unspecified; K56.600 Partial intestinal obstruction, unspecified as to cause; R55 Syncope and collapse; R11.2 Nausea with vomiting, unspecified; R26.89 Other abnormalities of gait and mobility; F31.9 Bipolar disorder, unspecified; F43.10 Post-traumatic stress disorder, unspecified; R29.6 Repeated falls; E66.9 Obesity, unspecified; Z98.84 Bariatric surgery status; K44.9 Diaphragmatic hernia without obstruction or gangrene; Z79.899 Other long term (current) drug therapy; Z88.6 Allergy status to analgesic agent; Z91.030 Bee allergy status; Z87.81 Personal history of (healed) traumatic fracture; Z68.36 Body mass index [BMI] 36.0-36.9, adult

== ENCOUNTER 2019-03-18 19:35 | Emergency (ER) | payer OTHER ==
[~2019-03-18] VITALS: Ht 160 cm; Wt 92.3 kg
[~2019-03-18 19:35] MED LIST changes: +MULTCAP PO; +PROP20TA72 PO; -QUET1TAB9; -QUET1TAB9 PO; +QUET200T2; +QUET200T2 PO
[2019-03-18] MEDS ORDERED: LIDOCAINE 5% (LIDODERM) PATCH TD ONE (21:15)
[2019-03-18] MEDS ORDERED: diazePAM 10 MG TAB PO ONE (21:15)
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
[2019-03-18] MEDS ORDERED: ROBA750T4 PO (22:48)
[2019-03-18] MEDS ORDERED: LIDO1PAD TOP (22:48)
[2019-03-18 22:49] VITALS: BP 112/59
--- NOTE | 2019-03-19 11:56 | REP ---
Clinical: Trauma. Fall. Tenderness. Technique: AP, lateral, bilateral oblique and coned-down views of the lumbosacral spine. Findings: Frontal view demonstrates mild chronic levoconvex scoliosis. Generalized age-related changes are appreciated. Lordosis maintained on lateral radiographs. No acute fracture / compression injury or subluxation. Impression: Generalized age-related degenerative changes. No acute fracture / compression injury or subluxation appreciated. Electronically Signed by Jose Ramos MD 03/19/2019 02:04 A
--- NOTE | 2019-03-19 11:56 | REP ---
Clinical: Trauma with right shoulder tenderness . Technique: Internal rotation, external rotation, and Y view right shoulder . Findings: No acute fracture or dislocation. The acromioclavicular and glenohumeral joints are intact. No periarticular calcifications or degenerative changes are appreciated. Sub acromial space is normal. Surrounding soft tissues are unremarkable. Impression: Normal age-appropriate right shoulder radiographs. Electronically Signed by Jose Ramos MD 03/19/2019 02:03 A
[2019-03-19] MEDS ORDERED: **NOTE PATIENT COMMENT** MISC XX SCH (21:00)
== END 2019-03-18 22:53 | disposition home or self-care (01) ==
LOC: M ED 19:35
DX: S16.1XXA Strain of muscle, fascia and tendon at neck level, initial encounter (principal); S43.401A Unspecified sprain of right shoulder joint, initial encounter; S30.0XXA Contusion of lower back and pelvis, initial encounter; W10.8XXA Fall (on) (from) other stairs and steps, initial encounter; Y92.098 Other place in other non-institutional residence as the place of occurrence of the external cause; Z87.81 Personal history of (healed) traumatic fracture; Z87.820 Personal history of traumatic brain injury; K21.9 Gastro-esophageal reflux disease without esophagitis; I10 Essential (primary) hypertension; Z98.84 Bariatric surgery status; Z88.6 Allergy status to analgesic agent; Z91.030 Bee allergy status; Z79.899 Other long term (current) drug therapy

== ENCOUNTER 2019-03-28 23:38 | Emergency (ER) | payer OTHER ==
[~2019-03-28] VITALS: Ht 160 cm; Wt 91.4 kg
[~2019-03-28 23:38] MED LIST changes: +LIDO1PAD TOP
[2019-03-29 01:04] VITALS: BP 160/95
--- NOTE | 2019-03-29 07:51 | REP ---
Clinical: Trauma. Technique: AP, lateral, bilateral oblique views left wrist . Findings: The osseous structures and joint spaces are intact and there is no evidence for acute fracture or dislocation. Soft tissue swelling overlying the distal forearm and wrist suggested. No subcutaneous emphysema or radiodense foreign body. Impression: Age-related changes without acute fracture. Soft-tissue swelling. Electronically Signed by Jose Ramos MD 03/29/2019 07:42 A
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
== END 2019-03-29 01:08 | disposition home or self-care (01) ==
LOC: M ED 23:38
DX: S50.12XA Contusion of left forearm, initial encounter (principal); W22.8XXA Striking against or struck by other objects, initial encounter; Y92.410 Unspecified street and highway as the place of occurrence of the external cause; Y93.9 Activity, unspecified; Y99.9 Unspecified external cause status; F31.9 Bipolar disorder, unspecified; F10.10 Alcohol abuse, uncomplicated; Z79.899 Other long term (current) drug therapy; Z88.6 Allergy status to analgesic agent; Z91.030 Bee allergy status

== ENCOUNTER 2019-09-16 22:37 | Emergency (ER) | payer OTHER ==
[~2019-09-16] VITALS: Ht 160 cm; Wt 93.2 kg
[~2019-09-16 22:37] MED LIST changes: -TRAZ-163 PO; +TRAZ-257 PO
[2019-09-17 00:54] VITALS: BP 132/78
--- NOTE | 2019-09-17 08:03 | REP ---
Right hand four views: There is questionably a small cortical fracture at the base of the fifth digit distal phalange at the articular surface on one-view. This may be a prominent trabecular pattern. Correlation with clinical point tenderness is recommended. No other fracture is identified. There is no dislocation. The skeletal structures and soft tissues otherwise are unremarkable. Impression: Questionable fracture base of the fifth digit distal phalange. Electronically Signed by Homero Ortega MD 09/17/2019 07:54 A
== END 2019-09-17 01:04 | disposition home or self-care (01) ==
LOC: M ED 22:37
DX: S62.646A Nondisplaced fracture of proximal phalanx of right little finger, initial encounter for closed fracture (principal); W19.XXXA Unspecified fall, initial encounter; Y92.410 Unspecified street and highway as the place of occurrence of the external cause; Y93.9 Activity, unspecified; Y99.9 Unspecified external cause status; I10 Essential (primary) hypertension; R56.9 Unspecified convulsions; Z98.84 Bariatric surgery status; F17.200 Nicotine dependence, unspecified, uncomplicated; Z79.899 Other long term (current) drug therapy; Z88.6 Allergy status to analgesic agent; Z91.030 Bee allergy status

== ENCOUNTER → 2019-12-30 | Outpatient (CLI) | payer OTHER ==
[~2019-12-30] MED LIST changes: +CYCL-707; +CYCL-707 PO; -CYCL10TA; -CYCL10TA PO; +OXYC-1; +OXYC-1 PO; -OXYC15TA76; -OXYC15TA76 PO
[2019-12-30 18:32] LABS: BASO % 0.5 % (0.0-1.0); EOS # 0.2 10^3/uL (0.0-0.5); EOS % 2.6 % (0.0-3.0); HEMATOCRIT 41.2 % (36.0-47.0); HEMOGLOBIN 13.1 g/dl (12.0-15.5); LYMPH # 2.4 10^3/uL (1.5-5.0); LYMPH % 29.5 % (24.0-44.0); MEAN CORPUSCULAR HEMOGLOBIN 28.9 pg (27.0-33.0); MEAN CORPUSCULAR HGB CONC 31.8 g/dl (32.0-36.5); MEAN CORPUSCULAR VOLUME 90.9 fl (80.0-96.0); MONO # 0.6 10^3/uL (0.0-0.8); MONO % 7.3 % (0.0-5.0); NEUTROPHILS # 4.8 10^3/uL (1.5-8.5); NEUTROPHILS % 59.9 % (36.0-66.0); PLATELET COUNT, AUTOMATED 335 10^3/uL (150-450); RED BLOOD COUNT 4.53 10^6/uL (4.00-5.40); WHITE BLOOD COUNT 8.1 10^3/uL (4.0-10.0)
[2019-12-30 19:04] LABS: ALBUMIN 3.5 GM/DL (3.2-5.2); ALT/SGPT 143 U/L (12-78); BILIRUBIN,TOTAL 0.5 MG/DL (0.2-1.0); BLOOD UREA NITROGEN 11 MG/DL (7-18); CALCIUM LEVEL 8.9 MG/DL (8.5-10.1); CARBON DIOXIDE LEVEL 26 MEQ/L (21-32); CHLORIDE LEVEL 109 MEQ/L (98-107); CHOLESTEROL LEVEL 151 MG/DL (<200); CHOLESTEROL RISK RATIO 2.396 (<5); CREATININE FOR GFR 0.74 MG/DL (0.55-1.30); GLOMERULAR FILTRATION RATE > 60.0 (>58); GLUCOSE, FASTING 85 MG/DL (70-100); HDL CHOLESTEROL 63 MG/DL (>40); LDL CHOLESTEROL 55 MG/DL (<100); LITHIUM LEVEL 0.27 MEQ/L (0.60-1.20); NON-HDL-C 88 MG/DL; POTASSIUM SERUM 4.9 MEQ/L (3.5-5.1); SODIUM LEVEL 141 MEQ/L (136-145); THYROID STIMULATING HORMONE 0.697 uIU/ML (0.358-3.740); TOTAL PROTEIN 6.8 GM/DL (6.4-8.2); TRIGLYCERIDES LEVEL 163 MG/DL (<150)
[2019-12-30 19:05] LABS: FREE T4 0.88 NG/DL (0.76-1.46)
[2019-12-30 19:08] LABS: HEMOGLOBIN A1c 5.8 %
== END ==
LOC: M LAB 16:52
PROVIDERS: ATTEND Nurse Practitioner Psychiatric/Mental Health
DX: F10.20 Alcohol dependence, uncomplicated (principal)

== ENCOUNTER 2020-01-27 17:52 | Emergency (ER) | payer OTHER ==
[~2020-01-27] VITALS: Ht 160 cm; Wt 103.3 kg
[2020-01-27] MEDS ORDERED: TYLETAB14 PO (19:52)
[2020-01-27] MEDS ORDERED: ACETAMINOPH W/CODEINE #3 TAB UD PO ONE ×2 (20:00)
[2020-01-27 20:02] VITALS: BP 178/115
--- NOTE | 2020-01-28 07:28 | REP ---
RIGHT 4TH AND 5TH DIGITS: Four views of the right 4th and 5th digits are performed. There is no evidence of acute fracture, dislocation, or intrinsic bone disease. IMPRESSION: No fracture or dislocation. Electronically Signed by Homero Black MD 01/29/2020 09:17 A
== END 2020-01-27 20:08 | disposition home or self-care (01) ==
LOC: M ED 17:52
DX: S69.91XA Unspecified injury of right wrist, hand and finger(s), initial encounter (principal); W23.0XXA Caught, crushed, jammed, or pinched between moving objects, initial encounter; Y92.099 Unspecified place in other non-institutional residence as the place of occurrence of the external cause; Y93.9 Activity, unspecified; Y99.9 Unspecified external cause status; G40.909 Epilepsy, unspecified, not intractable, without status epilepticus; I10 Essential (primary) hypertension; K21.9 Gastro-esophageal reflux disease without esophagitis; F41.9 Anxiety disorder, unspecified; F31.89 Other bipolar disorder; Z87.820 Personal history of traumatic brain injury; Z98.84 Bariatric surgery status; Z79.899 Other long term (current) drug therapy; Z88.6 Allergy status to analgesic agent; Z91.030 Bee allergy status

== ENCOUNTER 2020-08-08 12:40 | Emergency (ER) | payer OTHER ==
[~2020-08-08] VITALS: Ht 160 cm; Wt 107.8 kg
[2020-08-08 12:40] VITALS: BP 142/90
[~2020-08-08 12:40] MED LIST changes: +BUPR-69 PO; -BUPR150T3 PO; +BUPR150T4 PO; -BUPR50TA PO; +TYLETAB14 PO
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
[2020-08-08] MEDS ORDERED: GABA-282 (12:49)
--- OUTSIDE RECORDS SUMMARY | 2020-08-08 12:49 | CCD ---
Author Author [facility] Organization [facility] Address Unknown Phone Unavailable Care Team Providers Care Sawsmith Name Role Phone NAIDU SR, JOSE ALFREDO ZAPIEN MD Unavailable Unavailable NAIDU SR, JOSE ALFREDO ZAPIEN MD Unavailable Unavailable NAIDU SR, JOSE ALFREDO ZAPIEN MD Unavailable Unavailable NAIDU SR, JOSE ALFREDO ZAPIEN MD Unavailable Unavailable NAIDU SR, JOSE ALFREDO ZAPIEN MD Unavailable Unavailable NAIDU SR, JOSE ALFREDO ZAPIEN MD Unavailable Unavailable NAIDU SR, JOSE ALFREDO ZAPIEN MD Unavailable Unavailable NAIDU SR, JOSE ALFREDO ZAPIEN MD Unavailable Unavailable NAIDU SR, JOSE ALFREDO ZAPIEN MD Unavailable Unavailable NAIDU SR, JOSE ALFREDO ZAPIEN MD Unavailable Unavailable NAIDU SR, JOSE ALFREDO ZAPIEN MD Unavailable Unavailable NAIDU SR, JOSE ALFREDO ZAPIEN MD Unavailable Unavailable NAIDU SR, JOSE ALFREDO ZAPIEN MD Unavailable Unavailable NAIDU SR, JOSE ALFREDO ZAPIEN MD Unavailable Unavailable NAIDU SR, JOSE ALFREDO ZAPIEN MD Unavailable Unavailable NAIDU SR, JOSE ALFREDO ZAPIEN MD Unavailable Unavailable NAIDU SR, JOSE ALFREDO ZAPIEN MD Unavailable Unavailable NAIDU SR, JOSE ALFREDO ZAPIEN MD Unavailable Unavailable NAIDU SR, JOSE ALFREDO ZAPIEN MD Unavailable Unavailable NAIDU SR, JOSE ALFREDO ZAPIEN MD Unavailable Unavailable NAIDU SR, JOSE ALFREDO ZAPIEN MD Unavailable Unavailable NAIDU SR, JOSE ALFREDO ZAPIEN MD Unavailable Unavailable NAIDU SR, JOSE ALFREDO ZAPIEN MD Unavailable Unavailable NAIDU SR, JOSE ALFREDO ZAPIEN MD Unavailable Unavailable NAIDU SR, JOSE ALFREDO ZAPIEN MD Unavailable Unavailable NAIDU SR, JOSE ALFREDO ZAPIEN MD Unavailable Unavailable NAIDU SR, JOSE ALFREDO ZAPIEN MD Unavailable Unavailable NAIDU SR, JOSE ALFREDO ZAPIEN MD Unavailable Unavailable NAIDU SR, JOSE ALFREDO ZAPIEN MD Unavailable Unavailable NAIDU SR, JOSE ALFREDO ZAPIEN MD Unavailable Unavailable NAIDU SR, JOSE ALFREDO ZAPIEN MD Unavailable Unavailable NAIDU SR, JOSE ALFREDO ZAPIEN MD Unavailable Unavailable NAIDU SR, JOSE ALFREDO ZAPIEN MD Unavailable Unavailable NAIDU SR, JOSE ALFREDO ZAPIEN MD Unavailable Unavailable NAIDU SR, JOSE ALFREDO ZAPIEN MD Unavailable Unavailable NAIDU SR, JOSE ALFREDO ZAPIEN MD Unavailable Unavailable NAIDU SR, JOSE ALFREDO ZAPIEN MD Unavailable Unavailable NAIDU SR, JOSE ALFREDO ZAPIEN MD Unavailable Unavailable NAIDU SR, JOSE ALFREDO ZAPIEN MD Unavailable Unavailable NAIDU SR, JOSE ALFREDO ZAPIEN MD Unavailable Unavailable NAIDU SR, JOSE ALFREDO ZAPIEN MD Unavailable Unavailable NAIDU SR, JOSE ALFREDO ZAPIEN MD Unavailable Unavailable NAIDU SR, JOSE ALFREDO ZAPIEN MD Unavailable Unavailable NAIDU SR, JOSE ALFREDO ZAPIEN MD Unavailable Unavailable NAIDU SR, JOSE ALFREDO ZAPIEN MD Unavailable Unavailable NAIDU SR, JOSE ALFREDO ZAPIEN MD Unavailable Unavailable NAIDU SR, JOSE ALFREDO ZAPIEN MD Unavailable Unavailable NAIDU SR, JOSE ALFREDO ZAPIEN MD Unavailable Unavailable NAIDU SR, JOSE ALFREDO ZAPIEN MD Unavailable Unavailable NAIDU SR, JOSE ALFREDO ZAPIEN MD Unavailable Unavailable NAIDU SR, JOSE ALFREDO ZAPIEN MD Unavailable Unavailable NAIDU SR, JOSE ALFREDO ZAPIEN MD Unavailable Unavailable NAIDU SR, JOSE ALFREDO ZAPIEN MD Unavailable Unavailable NAIDU SR, JOSE ALFREDO ZAPIEN MD Unavailable Unavailable Ting, Regmimi Bootheyce SCRAP IRON LOADER-C Unavailable Unavailabl e Ting, Reginah Gabriella BootheCaitie SCRAP IRON LOADER-C Unavailable Unavailabl e Ting, Reginah Gabriella Caitie SCRAP IRON LOADER-C Unavailable Unavailabl e Ting, Reginah W Caitie SCRAP IRON LOADER-C Unavailable Unavailabl e Ting, Reginah W Caitie SCRAP IRON LOADER-C Unavailable Unavailabl e Ting, Reginah W Caitie SCRAP IRON LOADER-C Unavailable Unavailabl e Ting, Reginah W Caitie SCRAP IRON LOADER-C Unavailable Unavailabl e Ting, Reginah Gabriella Caitie SCRAP IRON LOADER-C Unavailable Unavailabl e Ting, Reginah W Caitie SCRAP IRON LOADER-C Unavailable Unavailabl e Ting, Reginah W Caitie SCRAP IRON LOADER-C Unavailable Unavailabl e Ting, Reginah W Caitie SCRAP IRON LOADER-C Unavailable Unavailabl e Ting, Edda Blood SCRAP IRON LOADER-C Unavailable Unavailabl e Ting, Edda Blood SCRAP IRON LOADER-C Unavailable Unavailabl e Ting, Edda Blood SCRAP IRON LOADER-C Unavailable Unavailabl e Ting, Edda Blood SCRAP IRON LOADER-C Unavailable Unavailabl e Ting, Edda Blood SCRAP IRON LOADER-C Unavailable Unavailabl e Ting, Edda Blood SCRAP IRON LOADER-C Unavailable Unavailabl e Ting, Edda Blood SCRAP IRON LOADER-C Unavailable Unavailabl e Ting, Edda Blood SCRAP IRON LOADER-C Unavailable Unavailabl e Ting, Edda Blood SCRAP IRON LOADER-C Unavailable Unavailabl e Ting, Edda Blood SCRAP IRON LOADER-C Unavailable Unavailabl e Ting, Edda Blood SCRAP IRON LOADER-C Unavailable Unavailabl e Ting, Edda Blood SCRAP IRON LOADER-C Unavailable Unavailabl e Ting, Edda Blood SCRAP IRON LOADER-C Unavailable Unavailabl e Ting, Edda Blood SCRAP IRON LOADER-C Unavailable Unavailabl e Ting, Edda Blood SCRAP IRON LOADER-C Unavailable Unavailabl e Ting, Edda Blood SCRAP IRON LOADER-C Unavailable Unavailabl e Ting, Edda Blood SCRAP IRON LOADER-C Unavailable Unavailabl e Ting, Edda Blood SCRAP IRON LOADER-C Unavailable Unavailabl e Ting, Edda Blood SCRAP IRON LOADER-C Unavailable Unavailabl e Ting, Edda Blood SCRAP IRON LOADER-C Unavailable Unavailabl e Ting, Edda Bootheyce SCRAP IRON LOADER-C Unavailable Unavailabl e Fish, Bright Malhotra MD Unavailable Unavailable Fish, Bright Malhotra MD Unavailable Unavailable Fish, Bright Malhotra MD Unavailable Unavailable Fish, Bright Malhotra MD Unavailable Unavailable Fish, Bright Malhotra MD Unavailable Unavailable Fish, Bright Malhotra MD Unavailable Unavailable Fish, Bright Malhotra MD Unavailable Unavailable Fish, Bright Malhotra MD Unavailable Unavailable Fish, Bright Malhotra MD Unavailable Unavailable Fish, Bright Malhotra MD Unavailable Unavailable Fish, B Roscoe ZIMMER Unavailable Unavailable Fish, B Roscoe ZIMMER Unavailable Unavailable Fish, B Roscoe ZIMMER Unavailable Unavailable Fish, B Roscoe ZIMMER Unavailable Unavailable Fish, B Roscoe ZIMMER Unavailable Unavailable Fish, B Roscoe ZIMMER Unavailable Unavailable Fish, B Roscoe ZIMMER Unavailable Unavailable Fish, B Roscoe ZIMMER Unavailable Unavailable Fish, B Roscoe ZIMMER Unavailable Unavailable Fish, B Roscoe ZIMMER Unavailable Unavailable Fish, B Roscoe ZIMMER Unavailable Unavailable Fish, B Roscoe ZIMMER Unavailable Unavailable Fish, B Roscoe ZIMMER Unavailable Unavailable Fish, B Roscoe ZIMMER Unavailable Unavailable Fish, B Roscoe ZIMMER Unavailable Unavailable Fish, B Roscoe ZIMMER Unavailable Unavailable Fish, B Roscoe ZIMMER Unavailable Unavailable Fish, B Roscoe ZIMMER Unavailable Unavailable Fish, B Roscoe ZIMMER Unavailable Unavailable Fish, B Roscoe ZIMMER Unavailable Unavailable Fish, B Roscoe ZIMMER Unavailable Unavailable Fish, B Roscoe ZIMMER Unavailable Unavailable Fish, B Roscoe ZIMMER Unavailable Unavailable Fish, B Roscoe ZIMMER Unavailable Unavailable Fish, B Roscoe ZIMMER Unavailable Unavailable Fish, B Roscoe ZIMMER Unavailable Unavailable Fish, B Roscoe ZIMMER Unavailable Unavailable Fish, B Roscoe ZIMMER Unavailable Unavailable Fish, B Roscoe ZIMMER Unavailable Unavailable Fish, B Roscoe ZIMMER Unavailable Unavailable Fish, B Roscoe ZIMMER Unavailable Unavailable Fish, B Roscoe ZIMMER Unavailable Unavailable Fish, B Roscoe ZIMMER Unavailable Unavailable Fish, B Roscoe ZIMMER Unavailable Unavailable Fish, B Roscoe ZIMMER Unavailable Unavailable Fish, B Roscoe ZIMMER Unavailable Unavailable Fish, B Roscoe ZIMMER Unavailable Unavailable Fish, B Roscoe ZIMMER Unavailable Unavailable Fish, B Roscoe ZIMMER Unavailable Unavailable Fish, B Roscoe ZIMMER Unavailable Unavailable Fish, B Roscoe ZIMMER Unavailable Unavailable Fish, B Roscoe ZIMMER Unavailable Unavailable Fish, B Roscoe ZIMMER Unavailable Unavailable Alyce Ayala Unavailable NAIDU SR, JOSE ALFREDO ZAPIEN MD Unavailable Unavailable NAIDU SR, JOSE ALFREDO ZAPIEN MD Unavailable Unavailable NAIDU SR, JOSE ALFREDO ZAPIEN MD Unavailable Unavailable NAIDU SR, JOSE ALFREDO ZAPIEN MD Unavailable Unavailable NAIDU SR, JOSE ALFREDO ZAPIEN MD Unavailable Unavailable NAIDU SR, JOSE ALFREDO ZAPIEN MD Unavailable Unavailable NAIDU SR, JOSE ALFREDO ZAPIEN MD Unavailable Unavailable NAIDU SR, JOSE ALFREDO ZAPIEN MD Unavailable Unavailable NAIDU SR, JOSE ALFREDO ZAPIEN MD Unavailable Unavailable NAIDU SR, JOSE ALFREDO ZAPIEN MD Unavailable Unavailable NAIDU SR, JOSE ALFREDO ZAPIEN MD Unavailable Unavailable NAIDU SR, JOSE ALFREDO ZAPIEN MD Unavailable Unavailable NAIDU SR, JOSE ALFREDO ZAPIEN MD Unavailable Unavailable NAIDU SR, JOSE ALFREDO ZAPIEN MD Unavailable Unavailable NAIDU SR, JOSE ALFREDO ZAPIEN MD Unavailable Unavailable NAIDU SR, JOSE ALFREDO ZAPIEN MD Unavailable Unavailable NAIDU SR, JOSE ALFREDO ZAPIEN MD Unavailable Unavailable NAIDU SR, JOSE ALFREDO ZAPIEN MD Unavailable Unavailable NAIDU SR, JOSE ALFREDO ZAPIEN MD Unavailable Unavailable NAIDU SR, JOSE ALFREDO ZAPIEN MD Unavailable Unavailable NAIDU SR, JOSE ALFREDO ZAPIEN MD Unavailable Unavailable NAIDU SR, JOSE ALFREDO ZAPIEN MD Unavailable Unavailable NAIDU SR, JOSE ALFREDO ZAPIEN MD Unavailable Unavailable NAIDU SR, JOSE ALFREDO ZAPIEN MD Unavailable Unavailable NAIDU SR, JOSE ALFREDO ZAPIEN MD Unavailable Unavailable NAIDU SR, JOSE ALFREDO ZAPIEN MD Unavailable Unavailable NAIDU SR, JOSE ALFREDO ZAPIEN MD Unavailable Unavailable NAIDU SR, JOSE ALFREDO ZAPIEN MD Unavailable Unavailable NAIDU SR, JOSE ALFREDO ZAPIEN MD Unavailable Unavailable NAIDU SR, JOSE ALFREDO ZAPIEN MD Unavailable Unavailable NAIDU SR, JOSE ALFREDO ZAPIEN MD Unavailable Unavailable NAIDU SR, JOSE ALFREDO ZAPIEN MD Unavailable Unavailable NAIDU SR, JOSE ALFREDO ZAPIEN MD Unavailable Unavailable NAIDU SR, JOSE ALFREDO ZAPIEN MD Unavailable Unavailable NAIDU SR, JOSE ALFREDO ZAPIEN MD Unavailable Unavailable NAIDU SR, JOSE ALFREDO ZAPIEN MD Unavailable Unavailable NAIDU SR, JOSE ALFREDO ZAPIEN MD Unavailable Unavailable NAIDU SR, JOSE ALFREDO ZAPIEN MD Unavailable Unavailable NAIDU SR, JOSE ALFREDO ZAPIEN MD Unavailable Unavailable NAIDU SR, JOSE ALFREDO ZAPIEN MD Unavailable Unavailable NAIDU SR, JOSE ALFREDO ZAPIEN MD Unavailable Unavailable NAIDU SR, JOSE ALFREDO ZAPIEN MD Unavailable Unavailable NAIDU SR, JOSE ALFREDO ZAPIEN MD Unavailable Unavailable NAIDU SR, JOSE ALFREDO ZAPIEN MD Unavailable Unavailable NAIDU SR, JOSE ALFREDO ZAPIEN MD Unavailable Unavailable NAIDU SR, JOSE ALFREDO ZAPIEN MD Unavailable Unavailable NAIDU SR, JOSE ALFREDO ZAPIEN MD Unavailable Unavailable NAIDU SR, JOSE ALFREDO ZAPIEN MD Unavailable Unavailable NAIDU SR, JOSE ALFREDO ZAPIEN MD Unavailable Unavailable NAIDU SR, JOSE ALFREDO ZAPIEN MD Unavailable Unavailable NAIDU SR, JOSE ALFREDO ZAPIEN MD Unavailable Unavailable NAIDU SR, JOSE ALFREDO ZAPIEN MD Unavailable Unavailable NAIDU SR, JOSE ALFREDO ZAPIEN MD Unavailable Unavailable NAIDU SR, JOSE ALFREDO ZAPIEN MD Unavailable Unavailable Sony, C David Unavailable Unavailable [place], C David Unavailable Unavailable [place], C Advid Unavailable Unavailable [place], C David Unavailable Unavailable Sony, C David Unavailable Unavailable Sony, C David Unavailable Unavailable [place], C David Unavailable Unavailable HOUSTON KAT MD Unavailable Unavailable HOUSTON KAT MD Unavailable Unavailable HOUSTON KAT MD Unavailable Unavailable NORTHHOUSTON VYAS MD Unavailable Unavailable HOUSTON KAT MD Unavailable Unavailable NORTHHOUSTON VYAS MD Unavailable Unavailable NORTHHOUSTON VYAS MD Unavailable Unavailable NORTHHOUSTON VYAS MD Unavailable Unavailable NORTHHOUSTON VYAS MD Unavailable Unavailable NORTHHOUSTON VYAS MD Unavailable Unavailable NORTH, HOUSTON MD Unavailable Unavailable NORTH, HOUSTON MD Unavailable Unavailable NORTH, HOUSTON MD Unavailable Unavailable NORTH, HOUSTON MD Unavailable Unavailable NORTH, HOUSTON MD Unavailable Unavailable NORTH, HOUSTON MD Unavailable Unavailable NORTH, HOUSTON MD Unavailable Unavailable NORTH, HOUSTON MD Unavailable Unavailable NORTH, HOUSTON MD Unavailable Unavailable NORTH, HOUSTON MD Unavailable Unavailable NORTH, HOUSTON MD Unavailable Unavailable NORTH, HOUSTON MD Unavailable Unavailable NORTH, HOUSTON MD Unavailable Unavailable NORTH, HOUSTON MD Unavailable Unavailable NORTH, HOUSTON MD Unavailable Unavailable NORTH, HOUSTON MD Unavailable Unavailable ONRTH, HOUSTON MD Unavailable Unavailable NORTH, HOUSTON MD Unavailable Unavailable NORTH, HOUSTON MD Unavailable Unavailable NORTH, HOUSTON MD Unavailable Unavailable NORTH, HOUSTON MD Unavailable Unavailable NORTH, HOUSTON MD Unavailable Unavailable NORTH, HOUSTON MD Unavailable Unavailable NORTH, HOUSTON MD Unavailable Unavailable NORTH, HOUSTON MD Unavailable Unavailable NORTH, HOUSTON MD Unavailable Unavailable NORTH, HOUSTON MD Unavailable Unavailable NORTH, HOUSTON MD Unavailable Unavailable NORTH, HOUSTON MD Unavailable Unavailable NORTH, HOUSTON MD Unavailable Unavailable NORTH, HOUSTON MD Unavailable Unavailable NORTH, HOUSTON MD Unavailable Unavailable DELGADORomel FUNK MD Unavailable Unavailable DELGADORomel FUNK MD Unavailable Unavailable DELGADORomel FUNK MD Unavailable Unavailable DELGADORomel FUNK MD Unavailable Unavailable DELGADORomel FUNK MD Unavailable Unavailable DELGADORomel FUNK MD Unavailable Unavailable DELGADORomel FUNK MD Unavailable Unavailable DELGADORomel FUNK MD Unavailable Unavailable DELGADORomel FUNK MD Unavailable Unavailable DELGADORomel FUNK MD Unavailable Unavailable DELGADORomel FUNK MD Unavailable Unavailable DELGADORomel FUNK MD Unavailable Unavailable DELGADORomel FUNK MD Unavailable Unavailable DELGADORomel FUNK MD Unavailable Unavailable DELGADORomel FUNK MD Unavailable Unavailable DELGADORomel FUNK MD Unavailable Unavailable DELGADORomel FUNK MD Unavailable Unavailable DELGADORomel FUNK MD Unavailable Unavailable DELGADORomel FUNK MD Unavailable Unavailable DELGADORomel FUNK MD Unavailable Unavailable DELGADORomel MD Unavailable Unavailable DELGADO, Romel MANZANO MD Unavailable Unavailable DELGADO, Romel MANZANO MD Unavailable Unavailable SYMENOW, G CHRISTOPHER PA Unavailable Unavailable SYMENOW, G CHRISTOPHER PA Unavailable Unavailable SYMENOW, G CHRISTOPHER PA Unavailable Unavailable SYMENOW, G CHRISTOPHER PA Unavailable Unavailable SYMENOW, G CHRISTOPHER PA Unavailable Unavailable SYMENOW, G CHRISTOPHER PA Unavailable Unavailable SYMENOW, G CHRISTOPHER PA Unavailable Unavailable SYMENOW, G CHRISTOPHER PA Unavailable Unavailable SYMENOW, G CHRISTOPHER PA Unavailable Unavailable SYMENOW, G CHRISTOPHER PA Unavailable Unavailable SYMENOW, G CHRISTOPHER PA Unavailable Unavailable SYMENOW, G CHRISTOPHER PA Unavailable Unavailable SYMENOW, G CHRISTOPHER PA Unavailable Unavailable SYMENOW, G CHRISTOPHER PA Unavailable Unavailable SYMENOW, G CHRISTOPHER PA Unavailable Unavailable SYMENOW, G CHRISTOPHER PA Unavailable Unavailable SYMENOW, G CHRISTOPHER PA Unavailable Unavailable Louis, W Desi RPA-C Unavailable Unavailable Louis, W Desi RPA-C Unavailable Unavailable Louis, W Desi RPA-C Unavailable Unavailable Louis, W Desi RPA-C Unavailable Unavailable Louis, W Desi RPA-C Unavailable Unavailable Louis, W Desi RPA-C Unavailable Unavailable Louis, W Desi RPA-C Unavailable Unavailable Louis, W Desi RPA-C Unavailable Unavailable Louis, W Desi RPA-C Unavailable Unavailable Louis, W Desi RPA-C Unavailable Unavailable Louis, W Desi RPA-C Unavailable Unavailable Louis, W Desi RPA-C Unavailable Unavailable Louis, W Desi RPA-C Unavailable Unavailable Louis, W Desi RPA-C Unavailable Unavailable Louis, W Desi RPA-C Unavailable Unavailable Louis, W Desi RPA-C Unavailable Unavailable Seo, P Nick PA Unavailable Unavailable Seo, P Nick PA Unavailable Unavailable Seo, P Nick PA Unavailable Unavailable Seo, P Nick PA Unavailable Unavailable Seo, P Nick PA Unavailable Unavailable Seo, P Nick PA Unavailable Unavailable Seo, P Nick PA Unavailable Unavailable Seo, P Nick PA Unavailable Unavailable Seo, P Nick PA Unavailable Unavailable Seo, P Nick PA Unavailable Unavailable Seo, P Nick PA Unavailable Unavailable Seo, P Nick PA Unavailable Unavailable Seo, P Nick PA Unavailable Unavailable Seo, P Nick PA Unavailable Unavailable Seo, P Nick PA Unavailable Unavailable Seo, P Nick PA Unavailable Unavailable Seo, P Nick PA Unavailable Unavailable Seo, P Nick PA Unavailable Unavailable Seo, P Nick PA Unavailable Unavailable Seo, P Nick PA Unavailable Unavailable Seo, P Nick PA Unavailable Unavailable Seo, P Nick PA Unavailable Unavailable Seo, P Nick PA Unavailable Unavailable Seo, P Ncik PA Unavailable Unavailable Seo, P Nick PA Unavailable Unavailable Seo, P Nick PA Unavailable Unavailable Seo, P Nick PA Unavailable Unavailable Seo, P Nick PA Unavailable Unavailable Seo, P Nick PA Unavailable Unavailable Seo, P Nick PA Unavailable Unavailable Seo, P Nick PA Unavailable Unavailable Seo, P Nick PA Unavailable Unavailable Seo, P Nick PA Unavailable Unavailable Seo, P Nick PA Unavailable Unavailable Seo, P Nick PA Unavailable Unavailable Seo, P Nick PA Unavailable Unavailable Seo, P Nick PA Unavailable Unavailable Seo, P Nick PA Unavailable Unavailable Seo, P Nick PA Unavailable Unavailable Seo, P Nick PA Unavailable Unavailable Seo, P Nick PA Unavailable Unavailable Seo, P Nick PA Unavailable Unavailable Seo, P Nick PA Unavailable Unavailable OAKLEY, R NAVI NCQA SPECIALIST Unavailable Unavailable OAKLEY, R NAVI NCQA SPECIALIST Unavailable Unavailable OAKLEY, R NAVI NCQA SPECIALIST Unavailable Unavailable OAKLEY, R NAVI NCQA SPECIALIST Unavailable Unavailable OAKLEY, R NAVI NCQA SPECIALIST Unavailable Unavailable OAKLEY, R NAVI NCQA SPECIALIST Unavailable Unavailable OAKLEY, R NAVI NCQA SPECIALIST Unavailable Unavailable OAKLEY, R NAVI NCQA SPECIALIST Unavailable Unavailable OAKLEY, R NAVI NCQA SPECIALIST Unavailable Unavailable OAKLEY, R NAVI NCQA SPECIALIST Unavailable Unavailable OAKLEY, R NAVI NCQA SPECIALIST Unavailable Unavailable OAKLEY, R NAVI NCQA SPECIALIST Unavailable Unavailable OAKLEY, R NAVI NCQA SPECIALIST Unavailable Unavailable OAKLEY, R NAVI NCQA SPECIALIST Unavailable Unavailable OAKLEY, R NAVI NCQA SPECIALIST Unavailable Unavailable OAKLEY, R NAVI NCQA SPECIALIST Unavailable Unavailable OAKLEY, R NAVI NCQA SPECIALIST Unavailable Unavailable OAKLEY, R NAVI NCQA SPECIALIST Unavailable Unavailable OAKLEY, R NAVI NCQA SPECIALIST Unavailable Unavailable OAKLEY, R NAVI NCQA SPECIALIST Unavailable Unavailable OAKLEY, R NAVI NCQA SPECIALIST Unavailable Unavailable OAKLEY, R NAVI NCQA SPECIALIST Unavailable Unavailable OAKLEY, R NAVI NCQA SPECIALIST Unavailable Unavailable OAKLEY, R NAVI NCQA SPECIALIST Unavailable Unavailable OAKLEY, R NAVI NCQA SPECIALIST Unavailable Unavailable OAKLEY, R NAVI NCQA SPECIALIST Unavailable Unavailable OAKLEY, R NAVI NCQA SPECIALIST Unavailable Unavailable OAKLEY, R NAVI NCQA SPECIALIST Unavailable Unavailable OAKLEY, R NAVI NCQA SPECIALIST Unavailable Unavailable OAKLEY, R NAVI NCQA SPECIALIST Unavailable Unavailable OAKLEY, R NAVI NCQA SPECIALIST Unavailable Unavailable OAKLEY, R NAVI NCQA SPECIALIST Unavailable Unavailable OAKLEY, R NAVI NCQA SPECIALIST Unavailable Unavailable OAKLEY, R NAVI NCQA SPECIALIST Unavailable Unavailable OAKLEY, R NAVI NCQA SPECIALIST Unavailable Unavailable OAKLEY, R NAVI NCQA SPECIALIST Unavailable Unavailable OAKLEY, R NAVI NCQA SPECIALIST Unavailable Unavailable OAKLEY, R NAVI NCQA SPECIALIST Unavailable Unavailable OAKLEY, R NAVI NCQA SPECIALIST Unavailable Unavailable OAKLEY, R NAVI NCQA SPECIALIST Unavailable Unavailable OAKLEY, R NAVI NCQA SPECIALIST Unavailable Unavailable Klawitter, Emily Grossman MD Unavailable Unavailable Klawitter, Emily Grossman MD Unavailable Unavailable Klawitter, Emily Grossman MD Unavailable Unavailable Klawitter, Emily Grossman MD Unavailable Unavailable Klawitter, Emily Grossman MD Unavailable Unavailable Klawitter, Emily Grossman MD Unavailable Unavailable Klawitter, Emily Grossman MD Unavailable Unavailable Klawitter, Emily Grossman MD Unavailable Unavailable Klawitter, Emily Grossman MD Unavailable Unavailable Klawitter, Emily Grossman MD Unavailable Unavailable Klawitter, Emily Grossman MD Unavailable Unavailable Klawitter, Emily Grossman MD Unavailable Unavailable Klawitter, Emily Grossman MD Unavailable Unavailable Klawitter, Emily Grossman MD Unavailable Unavailable Klawitter, Emily Grossman MD Unavailable Unavailable Klawitter, Emily Grossman MD Unavailable Unavailable Klawitter, Emily Grossman MD Unavailable Unavailable Brie Rios Unavailable Edilberto, A Sandra SCRAP IRON LOADER Unavailable Unavailable Edilberto, A Sandra SCRAP IRON LOADER Unavailable Unavailable Edilberto, A Sandra SCRAP IRON LOADER Unavailable Unavailable Edilberto, A Sandra SCRAP IRON LOADER Unavailable Unavailable Edilbreto, A Sandra SCRAP IRON LOADER Unavailable Unavailable Edilberto, A Sandra SCRAP IRON LOADER Unavailable Unavailable Edilberto, A Sandra SCRAP IRON LOADER Unavailable Unavailable Edilberto, A Sandra SCRAP IRON LOADER Unavailable Unavailable Edilberto, A Sandra SCRAP IRON LOADER Unavailable Unavailable Edilberto, A Sandra SCRAP IRON LOADER Unavailable Unavailable Edilberto, A Sandra SCRAP IRON LOADER Unavailable Unavailable Edilberto, A Sandra SCRAP IRON LOADER Unavailable Unavailable Edilberto, A Sandra SCRAP IRON LOADER Unavailable Unavailable Edilberto, A Sandra SCRAP IRON LOADER Unavailable Unavailable Edilberto, A Sandra SCRAP IRON LOADER Unavailable Unavailable Edilberto, A Sandra SCRAP IRON LOADER Unavailable Unavailable Edilberto, A Sandra SCRAP IRON LOADER Unavailable Unavailable Edilberto, A Sandra SCRAP IRON LOADER Unavailable Unavailable Edilberto, A Sandra SCRAP IRON LOADER Unavailable Unavailable Edilberto, A Sandra SCRAP IRON LOADER Unavailable Unavailable Edilberto, A Sandra SCRAP IRON LOADER Unavailable Unavailable Edilberto, A Sandra SCRAP IRON LOADER Unavailable Unavailable Edilberto, A Sandra SCRAP IRON LOADER Unavailable Unavailable Edilberto, A Sandra SCRAP IRON LOADER Unavailable Unavailable Edilberto, A Sandra SCRAP IRON LOADER Unavailable Unavailable Edilberto, A Sandra SCRAP IRON LOADER Unavailable Unavailable Edilberto, A Sandra SCRAP IRON LOADER Unavailable Unavailable Edilberto, A Sandra SCRAP IRON LOADER Unavailable Unavailable Edilberto, A Sandra SCRAP IRON LOADER Unavailable Unavailable Edilberto, A Sandra SCRAP IRON LOADER Unavailable Unavailable Edilberto, A Sandra SCRAP IRON LOADER Unavailable Unavailable Edilberto, A Sadnra SCRAP IRON LOADER Unavailable Unavailable Edilberto, A Sandra SCRAP IRON LOADER Unavailable Unavailable Edilberto, A Sandra SCRAP IRON LOADER Unavailable Unavailable Edilberto, A Sandra SCRAP IRON LOADER Unavailable Unavailable Edilberto, A Sandra SCRAP IRON LOADER Unavailable Unavailable Edilberto, A Sandra SCRAP IRON LOADER Unavailable Unavailable Edilberto, A Sandra SCRAP IRON LOADER Unavailable Unavailable Edilberto, A Sandra SCRAP IRON LOADER Unavailable Unavailable Edilberto, A Sandra SCRAP IRON LOADER Unavailable Unavailable Edilberto, A Sandra SCRAP IRON LOADER Unavailable Unavailable Edilberto, A Sandra SCRAP IRON LOADER Unavailable Unavailable Edilberto, A Sandra SCRAP IRON LOADER Unavailable Unavailable Edilberto, A Sandra SCRAP IRON LOADER Unavailable Unavailable GUCCI CANELA MD Unavailable Unavailable Robbin CONCEPCION MD Unavailable Unavailable Robbin CONCEPCION MD Unavailable Unavailable Robbin CONCEPCION MD Unavailable Unavailable Robbin CONCEPCION MD Unavailable Unavailable Robbin CONCEPCION MD Unavailable Unavailable Robbin CONCEPCION MD Unavailable Unavailable Robbin CONCEPCION MD Unavailable Unavailable Robbin CONCEPCION MD Unavailable Unavailable Robbin CONCEPCION MD Unavailable Unavailable Robbin CONCEPCION MD Unavailable Unavailable Robbin CONCEPCION MD Unavailable Unavailable Robbin CONCEPCION MD Unavailable Unavailable Robbin CONCEPCION MD Unavailable Unavailable Robbin CONCEPCION MD Unavailable Unavailable Robbin CONCEPCION MD Unavailable Unavailable JAMEY, E ANA LAURA ZIMMER Unavailable Unavailable JAMEY, E ANA LAURA ZIMMER Unavailable Unavailable JAMEY, E ANA LAURA ZIMMER Unavailable Unavailable JAMEY, E ANA LAURA ZIMMER Unavailable Unavailable DICKSTEIN, E ANA LAURA ZIMMER Unavailable Unavailable GROVES, A DESI MD Unavailable Unavailable GROVES, A DESI MD Unavailable Unavailable GROVES, A DESI MD Unavailable Unavailable GROVES, A DESI MD Unavailable Unavailable GROVES, A DESI MD Unavailable Unavailable GROVES, A DESI MD Unavailable Unavailable GROVES, A DESI MD Unavailable Unavailable GROVES, A DESI MD Unavailable Unavailable GROVES, A DESI MD Unavailable Unavailable GROVES, A DESI MD Unavailable Unavailable GROVES, A DESI MD Unavailable Unavailable GROVES, A DESI MD Unavailable Unavailable GROVES, A DESI MD Unavailable Unavailable GROVES, A DESI MD Unavailable Unavailable GROVES, A DESI MD Unavailable Unavailable RGOVES, A DESI MD Unavailable Unavailable GROVES, A DESI MD Unavailable Unavailable GROVES, A DESI MD Unavailable Unavailable GROVES, A DESI MD Unavailable Unavailable GROVES, A DESI MD Unavailable Unavailable GROVES, A DESI MD Unavailable Unavailable GROVES, A DESI MD Unavailable Unavailable GROVES, A DESI MD Unavailable Unavailable GROVES, A DESI MD Unavailable Unavailable GROVES, A DESI MD Unavailable Unavailable GROVES, A DESI MD Unavailable Unavailable GROVES, A DESI MD Unavailable Unavailable GROVES, A DESI MD Unavailable Unavailable GROVES, A DESI MD Unavailable Unavailable GROVES, A DESI MD Unavailable Unavailable GROVES, A DESI MD Unavailable Unavailable GROVES, A DESI MD Unavailable Unavailable GROVES, A DESI MD Unavailable Unavailable GROVES, A DESI MD Unavailable Unavailable GROVES, A DESI MD Unavailable Unavailable GROVES, A DESI MD Unavailable Unavailable GROVES, A DESI MD Unavailable Unavailable GROVES, A DESI MD Unavailable Unavailable GROVES, A DESI MD Unavailable Unavailable GROVES, A DESI MD Unavailable Unavailable GROVES, A DESI MD Unavailable Unavailable GROVES, A DESI MD Unavailable Unavailable GROVES, A DESI MD Unavailable Unavailable GROVES, A DESI MD Unavailable Unavailable GROVES, A DESI MD Unavailable Unavailable GROVES, A DESI MD Unavailable Unavailable GROVES, A DESI MD Unavailable Unavailable GROVES, A DESI MD Unavailable Unavailable GROVES, A DESI MD Unavailable Unavailable GROVES, A DESI MD Unavailable Unavailable GROVES, A DESI MD Unavailable Unavailable GROVES, A DESI MD Unavailable Unavailable GROVES, A DESI MD Unavailable Unavailable GROVES, A DESI MD Unavailable Unavailable GROVES, A DESI MD Unavailable Unavailable GROVES, A DESI MD Unavailable Unavailable GROVES, A DESI MD Unavailable Unavailable GROVES, A DESI MD Unavailable Unavailable GROVES, A DESI MD Unavailable Unavailable GROVES, A DESI MD Unavailable Unavailable GROVES, A DESI MD Unavailable Unavailable GROVES, A DESI MD Unavailable Unavailable GROVES, A DESI MD Unavailable Unavailable GROVES, A DESI MD Unavailable Unavailable GROVES, A DESI MD Unavailable Unavailable GROVES, A DESI MD Unavailable Unavailable GROVES, A DESI MD Unavailable Unavailable GROVES, A DESI MD Unavailable Unavailable GROVES, A DESI MD Unavailable Unavailable GROVES, A DESI MD Unavailable Unavailable GROVES, A DESI MD Unavailable Unavailable GROVES, A DESI MD Unavailable Unavailable GROVES, A DESI MD Unavailable Unavailable GROVES, A DESI MD Unavailable Unavailable GROVES, A DESI MD Unavailable Unavailable GROVES, A DESI MD Unavailable Unavailable GROVES, A DESI MD Unavailable Unavailable GROVES, A DESI MD Unavailable Unavailable GROVES, A DESI MD Unavailable Unavailable GROVES, A DESI MD Unavailable Unavailable GROVES, A DESI MD Unavailable Unavailable GROVES, A DESI MD Unavailable Unavailable GROVES, A DESI MD Unavailable Unavailable GROVES, A DESI MD Unavailable Unavailable GROVES, A DESI MD Unavailable Unavailable GROVES, A DESI MD Unavailable Unavailable RODRIGO CHOE JR Unavailable Unavailable CASE CRISTINA M.D. Unavailable Unavailab Dorothy Tena MD Unavailable Unavailable Dorothy Barger MD Unavailable Unavailable Dorothy Barger MD Unavailable Unavailable Dorothy Barger MD Unavailable Unavailable Dorothy Barger MD Unavailable Unavailable Dorothy Barger MD Unavailable Unavailable Dorothy Barger MD Unavailable Unavailable Dorothy Barger MD Unavailable Unavailable Dorothy Barger MD Unavailable Unavailable Dorothy Barger MD Unavailable Unavailable Dorothy Barger MD Unavailable Unavailable Dorothy Barger MD Unavailable Unavailable Dorothy Barger MD Unavailable Unavailable Dorothy Barger MD Unavailable Unavailable Dorothy Barger MD Unavailable Unavailable Dorothy Barger MD Unavailable Unavailable Dorothy Barger MD Unavailable Unavailable Dorothy Barger MD Unavailable Unavailable Dorothy Barger MD Unavailable Unavailable Dorothy Barger MD Unavailable Unavailable Dorothy Barger MD Unavailable Unavailable Dorothy Barger MD Unavailable Unavailable Dorothy Barger MD Unavailable Unavailable Dorothy Barger MD Unavailable Unavailable Dorothy Barger MD Unavailable Unavailable Dorothy Barger MD Unavailable Unavailable Dorothy Barger MD Unavailable Unavailable Dorothy Barger MD Unavailable Unavailable Dorothy Barger MD Unavailable Unavailable Dorothy Barger MD Unavailable Unavailable Dorothy Barger MD Unavailable Unavailable Dorothy Barger MD Unavailable Unavailable Dorothy Barger MD Unavailable Unavailable Dorothy Barger MD Unavailable Unavailable Dorothy Barger MD Unavailable Unavailable Dorothy Barger MD Unavailable Unavailable Dorothy Barger MD Unavailable Unavailable Dorothy Barger MD Unavailable Unavailable Dorothy Barger MD Unavailable Unavailable Dorothy Barger MD Unavailable Unavailable Dorothy Barger MD Unavailable Unavailable Dorothy Barger MD Unavailable Unavailable Dorothy Barger MD Unavailable Unavailable Dorothy Barger MD Unavailable Unavailable Dorothy Barger MD Unavailable Unavailable Dorothy Barger MD Unavailable Unavailable Dorothy Barger MD Unavailable Unavailable Dorothy Barger MD Unavailable Unavailable Dorothy Barger MD Unavailable Unavailable Dorothy Barger MD Unavailable Unavailable Dorothy Barger MD Unavailable Unavailable Dorothy Barger MD Unavailable Unavailable Dorothy Barger MD Unavailable Unavailable Dorothy Barger MD Unavailable Unavailable Dorothy Barger MD Unavailable Unavailable Dorothy Barger MD Unavailable Unavailable Dorothy Barger MD Unavailable Unavailable Dorothy Barger MD Unavailable Unavailable Dorothy Barger MD Unavailable Unavailable Dorothy Barger MD Unavailable Unavailable Dorothy Barger MD Unavailable Unavailable Dorothy Barger MD Unavailable Unavailable Dorothy Barger MD Unavailable Unavailable Dorothy Barger MD Unavailable Unavailable Dorothy Barger MD Unavailable Unavailable Dorothy Barger MD Unavailable Unavailable Dorothy Barger MD Unavailable Unavailable Dorothy Barger MD Unavailable Unavailable Dorothy Barger MD Unavailable Unavailable Dorothy Barger MD Unavailable Unavailable Dorothy Barger MD Unavailable Unavailable Dorothy Barger MD Unavailable Unavailable Dorothy Barger MD Unavailable Unavailable Dorothy Barger MD Unavailable Unavailable Dorothy Barger MD Unavailable Unavailable Dorothy Barger MD Unavailable Unavailable Dorothy Barger MD Unavailable Unavailable Dorothy Barger MD Unavailable Unavailable Dorothy Barger MD Unavailable Unavailable Dorothy Barger MD Unavailable Unavailable Dorothy Barger MD Unavailable Unavailable Dorothy Barger MD Unavailable Unavailable Dorothy Barger MD Unavailable Unavailable Dorothy Barger MD Unavailable Unavailable Dorothy Barger MD Unavailable Unavailable Dorothy Barger MD Unavailable Unavailable Dorothy Barger MD Unavailable Unavailable Dorothy Barger MD Unavailable Unavailable Dorothy Barger MD Unavailable Unavailable Rayo Jaime PMH-NCQA SPECIALIST Unavailable Unavailable Rayo Jaime PMH-NCQA SPECIALIST Unavailable Unavailable Rayo Jaime PMH-NCQA SPECIALIST Unavailable Unavailable Rayo Jaime PMH-NCQA SPECIALIST Unavailable Unavailable Rayo Jaime PMH-NCQA SPECIALIST Unavailable Unavailable Rayo Jaime PMH-NCQA SPECIALIST Unavailable Unavailable Harris Cristina MD, M.D. Unavailable [phone] ThiHarris lopez MD, M.D. Unavailable [phone] Harris Cristina MD, M.D. Unavailable [phone] Harris Cristina MD, M.D. Unavailable [phone] Harris Cristina MD, M.D. Unavailable [phone] Harris Cristina MD, M.D. Unavailable [phone] Harris Cristina MD, M.D. Unavailable [phone] Harris Cristina MD, M.D. Unavailable [phone] Harris Cristina MD, M.D. Unavailable [phone] Harris Cristina MD, M.D. Unavailable [phone] Laura, J Eduard PA-C Unavailable Unavailable Laura, J Eduard PA-C Unavailable Unavailable Laura, J Eduard PA-C Unavailable Unavailable Laura, J Eduard PA-C Unavailable Unavailable Laura, J Eduard PA-C Unavailable Unavailable Laura, J Eduard PA-C Unavailable Unavailable Laura, J Eduard PA-C Unavailable Unavailable Laura, J Eduard PA-C Unavailable Unavailable Laura, J Eduard PA-C Unavailable Unavailable Laura, J Eduard PA-C Unavailable Unavailable Laura, J Eduard PA-C Unavailable Unavailable AMANDA, A JOSE ALFREDO PA Unavailable Unavailable AMANDA, A JOSE ALFREDO PA Unavailable Unavailable AMANDA, A JOSE ALFREDO PA Unavailable Unavailable AMANDA, A JOSE ALFREDO PA Unavailable Unavailable AMANDA, A JOSE ALFREDO PA Unavailable Unavailable AMANDA, A JOSE ALFREDO PA Unavailable Unavailable AMANDA, A JOSE ALFREDO PA Unavailable Unavailable AMANDA, A JOSE ALFREDO PA Unavailable Unavailable AMANDA, A JOSE ALFREDO PA Unavailable Unavailable AMANDA, A JOSE ALFREDO PA Unavailable Unavailable AMANDA, A JOSE ALFREDO PA Unavailable Unavailable AMANDA, A JOSE ALFREDO PA Unavailable Unavailable AMANDA, A JOSE ALFREDO PA Unavailable [facility] Unavailable Unavailable Fabiola Conway Unavailable Re-disclosure Warning The records that you are about to access may contain information from federally-assisted alcohol or drug abuse programs. If such information is present, then the following federally mandated warning applies: This information has been disclosed to you from records protected by federal confidentiality rules (42 CFR part 2). The federal rules prohibit you from making any further disclosure of this information unless further disclosure is expressly permitted by the written consent of the person to whom it pertains or as otherwise permitted by 42 CFR part 2. A general authorization for the release of medical or other information is NOT sufficient for this purpose. The Federal rules restrict any use of the information to criminally investigate or prosecute any alcohol or drug abuse patient.The records that you are about to access may contain highly sensitive health information, the redisclosure of which is protected by Article 27-F of the [facility] [place] Public Health law. If you continue you may have access to information: Regarding HIV / AIDS; Provided by facilities licensed or operated by the [facility] Office of Mental Health; or Provided by the [facility] Office for People With Developmental Disabilities. If such information is present, then the following [facility] mandated warning applies: This information has been disclosed to you from confidential records which are protected by state law. State law prohibits you from making any further disclosure of this information without the specific written consent of the person to whom it pertains, or as otherwise permitted by law. Any unauthorized further disclosure in violation of state law may result in a fine or senior care sentence or both. A general authorization for the release of medical or other information is NOT sufficient authorization for further disc losure. Allergies and Adverse Reactions Type Description Substance Reaction Status Data Source(s ) Drug allergy Drug allergy venom-honey bee (bee venom (bhupendra y bee)) Anaphylactic Shock [facility] Drug allergy Drug allergy ibuprofen [facility] Propensity to adverse reactions to substance nkda 24 HR Bupropion Hydrochloride 150 MG Extended Release Oral Tablet Active [facility] ([facility]) Drug allergy Ibuprofen Ibuprofen nausea Active eCW1 ([facility]) Drug allergy No Known Drug Allergies No Known Drug Allergies [facility] Drug allergy No Known Allergies No Known Allergies [facility] Family History Family Member Name Family Member Gender Family Member Status Date o f Status Description Data Source(s) Unknown Unknown Problem [facility] ([facility], ) Encounters Encounter Providers Location Date Indications Data Source(s ) Outpatient Attender: DESI GROVES MD 01/03/2021 12:00:00 AM EDT [facility] Outpatient [facility] 08/02/2020 12:00:00 AM EST eCW1 ([facility]) Outpatient [facility] 07/05/2020 12:00:00 AM EST eCW1 ([facility]) Emergency Attender: Eduard ASKEW-CConsultant: CURRY BARAJAS SR 07/02/2020 01:57:00 PM EST - 07/02/2020 03:20:00 PM EST [facility] Patient discharged. Outpatient [facility] 07/02/2020 12:00:00 AM EST eCW1 ([facility]) Outpatient Attender: Caitie SUAREZ-Ketty 06/25/2020 11:00:0 0 AM EST [facility] Outpatient [facility] 06/25/2020 12:00:00 AM EST eCW1 ([facility]) Emergency Attender: Desi Louis RPA-CReferrer: CURRY REINOSO ACE, SR 06/19/2020 03:46:00 PM EST - 06/19/2020 04:54:00 PM EST [facility] Patient discharged. Outpatient Attender: Roxy Jaime [facility]-NPReferrer : CURRY NAIDU SR EMERGENCY ROOM-LABOTHPROV 05/04/2020 08:45:00 AM EDT - 05/04/2020 08:45:00 AM EDT [facility] Outpatient CPSCAORT-LABEJN 05/03/2020 09:51:00 AM EDT [facility] Outpatient [facility] 05/03/2020 12:00:00 AM EDT eCW1 ([facility]) Emergency Attender: JOSE ALFREDO ASKEW ED-ED 05/02 01:35:00 PM EDT - 05/02/2020 03:48:00 PM EDT LOWER LEFT BACK PAIN DIZZINESS NAUSEA [facility] LOWER LEFT BACK PAIN DIZZINESS NAUSEA Patient discharged. Emergency Attender: DAVID CHOE JRReferrer: CURRY REINOSO ACE, SR 05/02/2020 12:14:00 PM EDT - 05/02/2020 12:23:00 PM EDT [facility] Patient discharged. Outpatient Attender: Roxy FREY-CHEL [facility] 04/19/2020 03:30:00 AM EDT - 04/19/2020 03:30:00 AM EDT [facility] ([facility]) Attender: Roxy VILLALTA-CHEL 04/19/2020 12: 00:00 AM EDT [facility] ([facility]) Extended Individual Psychotherapy - 45 min [facility] 10:00:00 AM EDT - 04/16/2020 10:00:00 AM EDT [facility] ([facility]) Attender: Fabiola Conway 04/16/2020 12:00:00 AM EDT [facility] ([facility]) Outpatient Attender: NAVI OAKLEY NPReferrer: Nick ASKEW 04/09/2020 12:00:00 AM [facility] Extended Individual Psychotherapy - 45 min [facility]2020 09:00:00 AM EDT - 03/26/2020 09:00:00 AM EDT [facility] ([facility]) Attender: Fabiola Conway 03/26/2020 12:00:00 AM EDT [facility] ([facility]) Outpatient Attender: CURRY NAIDU SRReferrer: CURRY Siegel SR 03/16/2020 03:00:00 PM EDT - 03/16/2020 03:00:00 PM EDT [facility] Outpatient Attender: CURRY NAIDU SR 03/05/2020 09:11:00 AM EDT [facility] Outpatient [facility] 03/05/2020 12:00:00 AM EDT eCW1 ([facility]) Outpatient Attender: NAVI OAKLEY NPReferrer: Nick ASKEW 02/20/2020 12:00:00 AM [facility] Outpatient Attender: NAVI OAKLEY NPReferrer: Nick ASKEW 02/06/2020 12:00:00 AM [facility] Outpatient Attender: Roxy Jaime [facility] 01/19/2020 09:30:00 AM EDT - 01/19/2020 09:30:00 AM EDT [facility] ([facility]) Attender: Roxy VILLALTA-NCQA SPECIALIST 01/19/2020 12: 00:00 AM EDT [facility] ([facility]) Outpatient Attender: DESI GROVES MD 01/19/2020 12:00:00 AM EDT [facility] Outpatient Referrer: Nick ASKEW 01/09/2020 12: 00:00 AM EDT Presence of left artificial hip joint [facility] Presence of left artificial hip joint Outpatient Attender: Nick ASKEW [id number] 01/09/2020 12: 00:00 AM EDT Presence of left artificial hip joint [facility] Presence of left artificial hip joint Emergency Attender: NATACHA NATARAJAN MDConsultant: CURRY LANGE SR 01/08/2020 10:11:00 PM EDT - 01/08/2020 11:51:00 PM EDT [facility] Patient discharged. Outpatient [facility] 01/02/2020 12:00:00 AM EDT eCW1 ([facility]) Emergency Attender: MURIEL AGARWAL PAReferrer : CURRY NAIDU EMERGENCY ROOM-ER 01/01/2020 08:10:00 PM EDT - 01/01/2020 08:50:00 PM EDT [facility] Patient discharged. TEMPMHCTelemed 30" Psychotherapy Attender: Alyce costello [facility] 12/31/2019 08:00:00 AM EDT - 12/31/2019 08:00:00 AM EDT [facility] ([facility]) Attender: Alyce Ayala 12/31/2019 12:00:0 0 AM EDT [facility] ([facility]) Outpatient Attender: Jorge Barger MD FP 12/30/2019 07:51:39 PM EDT [facility] C ENTER 12/24/2019 12:00:00 AM EDT eCW1 ([facility]) Outpatient Attender: Roxy Jaime [facility] 12/19/2019 10:00:00 AM EDT - 12/19/2019 10:00:00 AM EDT [facility] ([facility]) Attender: Roxy FREY-NCQA SPECIALIST 12/19/2019 12: 00:00 AM EDT [facility] ([facility]) TEMPMHCTelemed 30" Psychotherapy Attender: Alyce Champagne [facility] 11/21/2019 09:00:00 AM EDT - 11/21/2019 09:00:00 AM EDT [facility] ([facility]) Attender: Alyce Ayala 11/21/2019 12:00:0 0 AM EDT [facility] ([facility]) Outpatient Attender: DESI GROVES MD 11/21/2019 12:00:00 AM EDT [facility] Outpatient Attender: Roxy FREYBRENDAN [facility] 11/19/2019 03:45:00 AM EDT - 11/19/2019 03:45:00 AM EDT [facility] ([facility]) Attender: Roxy FREY-NCQA SPECIALIST 11/19/2019 12: 00:00 AM EDT [facility] ([facility]) [facility] 11/03/2019 12:00:00 AM EDT eCW1 ([facility]) Outpatient [facility] 10/29/2019 12:00:00 AM EDT eCW1 ([facility]) [id number]"Psychotherapy Attender: Alyce Ayala [facility] 10/24/2019 09:00:00 AM EDT - 10/24/2019 09:00:00 AM EDT [facility] ([facility]) Attender: Alyce Ayala 10/24/2019 12:00:0 0 AM EDT [facility] ([facility]) [facility] [address] [facility] [address] [facility] [address] [place] [address] 10/23/2019 12:00:00 AM EDT [facility] Outpatient Attender: CURRY NAIDU SR 10/17/2019 10:00:00 AM EDT [facility] C ENTER 10/17/2019 12:00:00 AM EDT eCW1 ([facility]) [facility] EN[facility] 10/16/2019 12:00:00 AM EDT eCW1 ([facility]) [facility] 10/13/2019 12:00:00 AM EDT eCW1 ([facility]) [facility] 10/10/2019 12:00:00 AM EDT eCW1 ([facility]) Extended Individual Psychotherapy - 45 min Attender: Annba Ayala [facility] 10/09/2019 11:30:00 AM EDT - 10/09/2019 11:30:00 AM EDT [facility] ([facility]) Attender: Alyce Ayala 10/09/2019 12:00:0 0 AM EDT [facility] ([facility]) [facility] [address] [place] [address] 10/02/2019 12:00:00 AM EDT eCW1 ([facility]) Extended Individual Psychotherapy - 45 min Attender: Ann marcelino Ayala [facility] 09/26/2019 10:00:00 AM EST - 09/26/2019 10:00:00 AM EST [facility] ([facility]) Attender: Alyceguy Ayala 09/26/2019 12:00:0 0 AM EST [facility] ([facility]) [facility] [address] [place] [address] 09/25/2019 12:00:00 AM EST eCW1 ([facility]) [facility] [address] [place] [address] 09/25/2019 12:00:00 AM EST eCW1 ([facility]) Outpatient Referrer: Roscoe Singleton MD 09/23/2019 03:02:00 PM EST [facility] 09/19/2019 12:00:00 AM EST eCW1 ([facility]) [facility] [address] [facility] [address] [place] [address] 09/17/2019 12:00:00 AM EST eCW1 ([facility]) Outpatient Attender: Jorge HERNANDEZ 09/12/2019 08:01:26 PM EST [facility] [address] [place] [id number] 09/12/2019 12:00:00 AM EST eCW1 ([facility]) Extended Individual Psychotherapy - 45 min Attender: Ann Ayala [facility] 08/29/2019 10:00:00 AM EST - 08/29/2019 10:00:00 AM EST [facility] ([facility]) Attender: Alyce Ayala 08/29/2019 12:00:0 0 AM EST [facility] ([facility]) Outpatient Attender: Case will MDAttender: CASE CRISTINA M.D. ER-ASUR 08/25/2019 07:41:00 AM EST [facility] cancelled. Disregard status an d admitted date. [facility] OP [address] [facility] [address] [place] [address] 08/25/2019 12:00:00 AM EST eCW1 ([facility]) [facility] 08/22/2019 12:00:00 AM EST eCW1 ([facility]) Outpatient Attender: David Cardoza [facility] 0 08/18/2019 02:30:00 AM EST - 08/18/2019 02:30:00 AM EST [facility] ([facility]) Attender: David Cardoza 08/18/2019 12:00:00 AM EST [facility] ([facility]) Brief Individual Psychotherapy - 30 min Attender: Brie salas [facility] 08/08/2019 02:30:00 AM EST - 08/08/2019 02:30:00 AM EST [facility] ([facility]) Attender: Brie Rios 08/08/2019 12:00:00 AM EST [facility] ([facility]) [facility] [address] [place] [address] 08/06/2019 12:00:00 AM EST eCW1 ([facility]) [facility] 07/24/2019 12:00:00 AM EST eCW1 ([facility]) [facility] 07/24/2019 12:00:00 AM EST eCW1 ([facility]) Emergency Attender: Chauncey Sherman [id number] 05:16:00 PM EST - 07/22/2019 09:12:00 PM EST Pain in left leg [facility] Pain in left leg Patient discharged. Outpatient Attender: CURRY NAIDU SR 07/21/2019 03:00:00 PM EST [facility] C ENTER 07/21/2019 12:00:00 AM EST eCW1 ([facility]) [facility] C EN[facility] 07/18/2019 12:00:00 AM EST eCW1 ([facility]) [facility] 07/14/2019 12:00:00 AM EST eCW1 ([facility]) [facility] 06/20/2019 12:00:00 AM EST eCW1 ([facility]) [facility] 06/17/2019 12:00:00 AM EST eCW1 ([facility]) Outpatient Attender: Jorge HERNANDEZ 06/13/2019 08:04:01 PM EST [facility] C ENTER 06/11/2019 12:00:00 AM EST eCW1 ([facility]) Outpatient Attender: CURRY NAIDU SR 05/27/2019 07:48:00 AM EST [facility] Outpatient Attender: ANA LAURA CONCEPCION MD 05/26/2019 04:17:00 PM EST [facility] Emergency Attender: MURIEL BAKEReferrer: CURRY NAIDU SR 03/28/2019 09:47:00 PM EDT - 03/28/2019 10:41:00 PM [facility] Patient discharged. Outpatient Attender: MURIEL AGARWAL PAConsultant: [facility] 02/27/2019 11:06:00 PM EDT [facility] Outpatient Attender: GUCCI CANELA MDConsultant: [facility] 02/21/2019 02:55:00 AM EDT [facility] Preadmit Attender: HOUSTON KAT MD 10/11/2018 10:24:0 0 AM EDT [facility] Outpatient Attender: CURRY NAIDU SRReferrer: CURRY Siegel SR 09/23/2018 09:00:00 AM EST - 09/23/2018 09:00:00 AM [facility] Emergency Attender: MURIEL AGARWAL PAReferrer: CURRY NAIDU SR 09/16/2018 08:02:00 PM EST - 09/16/2018 09:02:00 PM [facility] Outpatient Attender: Sandra Casanova FNPReferrer: CURRY BARAJAS SR 03/14/2018 09:00:00 AM [facility] Emergency Attender: MURIEL ASKEW EMERGENCY ROOM- ER 11/12/2016 08:09:00 PM EDT - 11/12/2016 08:55:00 PM [facility] Functional Status Medications Medication Brand Name Start Date Product Form Dose Route Admi nistrative Instructions Pharmacy Instructions Status Indications Reaction Description Data Source(s) 100 mg 07/03/2020 12:00:00 AM EST capsule 90 TAKE ONE CAPSULE BY MOUTH THREE TIMES A DAY TAKE ONE CAPSULE BY MOUTH THREE TIMES A DAY SOLD: 07/04/2020 [facility] physical therapy eval and tx - UNK 06/25/2020 12:00:00 AM EST active physical therapy eval and tx - eCW1 ([facility]) Diclofenac Sodium 1 % UNK 06/25/2020 12:00:00 AM EST active Diclofenac Sodium 1 % eCW1 ([facility]) Diclofenac Sodium 1 % UNK 06/25/2020 12:00:00 AM EST active Diclofenac Sodium 1 % eCW1 ([facility]) physical therapy eval and tx - UNK 06/25/2020 12:00:00 AM EST active physical therapy eval and tx - eCW1 ([facility]) physical therapy eval and tx - UNK 06/25/2020 12:00:00 AM EST active physical therapy eval and tx - eCW1 ([facility]) Diclofenac Sodium 1 % UNK 06/25/2020 12:00:00 AM EST active Diclofenac Sodium 1 % eCW1 ([facility]) physical therapy eval and tx - UNK 06/25/2020 12:00:00 AM EST active physical therapy eval and tx - eCW1 ([facility]) Diclofenac Sodium 1 % UNK 06/25/2020 12:00:00 AM EST active Diclofenac Sodium 1 % eCW1 ([facility]) 300 mg 06/19/2020 12:00:00 AM EST capsule 60 TAKE 1 CAPSULE BY MOUTH TWICE A DAY MAX DAILY DOSE = 2 CAPSULES TAKE 1 CAPSULE BY MOUTH TWICE A DAY MAX DAILY DOSE = 2 CAPSULES SOLD: 06/19/2020 [facility] 300 mg 06/19/2020 12:00:00 AM EST capsule 60 TAKE 1 CAPSULE BY MOUTH TWICE A DAY MAX DAILY DOSE = 2 CAPSULES TAKE 1 CAPSULE BY MOUTH TWICE A DAY MAX DAILY DOSE = 2 CAPSULES SOLD: 07/17/2020 [facility] quetiapine 300 MG Oral Tablet QUETIAPINE FUMARATE 04/20/2020 12: 00:00 AM EDT tablet 30 TAKE ONE TABLET BY MOUTH AT BEDT LULI TAKE ONE TABLET BY MOUTH AT BEDTIME SOLD: 04/20/2020 [facility] 1 mg 04/20/2020 12:00:00 AM EDT capsule 30 TAKE ONE CAPSULE BY MOUTH DAILY AT BEDTIME TAKE ONE CAPSULE BY MOUTH DAILY AT BEDTIME SOLD: 05/19/2020 [facility] buspirone hydrochloride 10 MG Oral Tablet BUSPIRONE HCL 04/20/2020 12:00:00 AM EDT tablet 60 TAKE ONE TABLET BY MOUTH TWI CE A DAY TAKE ONE TABLET BY MOUTH TWICE A DAY SOLD: 05/19/2020 [facility] quetiapine 300 MG Oral Tablet QUETIAPINE FUMARATE 04/20/2020 12: 00:00 AM EDT tablet 30 TAKE ONE TABLET BY MOUTH AT BEDT LULI TAKE ONE TABLET BY MOUTH AT BEDTIME SOLD: 05/19/2020 [facility] 300 mg 04/20/2020 12:00:00 AM EDT capsule 60 TAKE TWO CAPSULES BY MOUTH ONCE DAILY AT BEDTIME TAKE TWO CAPSULES BY MOUTH ONCE DAILY AT BEDTIME SOLD: 04/20/2020 [facility] 300 mg 04/20/2020 12:00:00 AM EDT capsule 60 TAKE TWO CAPSULES BY MOUTH ONCE DAILY AT BEDTIME TAKE TWO CAPSULES BY MOUTH ONCE DAILY AT BEDTIME SOLD: 05/19/2020 [facility] 1 mg 04/20/2020 12:00:00 AM EDT capsule 30 TAKE ONE CAPSULE BY MOUTH DAILY AT BEDTIME TAKE ONE CAPSULE BY MOUTH DAILY AT BEDTIME SOLD: 04/20/2020 [facility] buspirone hydrochloride 10 MG Oral Tablet BUSPIRONE HCL 04/20/2020 12:00:00 AM EDT tablet 60 TAKE ONE TABLET BY MOUTH TWI CE A DAY TAKE ONE TABLET BY MOUTH TWICE A DAY SOLD: 04/20/2020 [facility] buspirone hydrochloride 10 MG Oral Tablet buspirone 2019 12:00:00 AM EDT 10 mg by mouth completed [id number] buspirone by mouth [id number] 04/19/2020 twice a day 10 mg tablet 14533 [id number] [facility] [id number] [facility] ([facility] 7.5 mg 04/09/2020 12:00:00 AM EDT tablet 60 TAKE ONE TABLET BY MOUTH TWICE A DAY TAKE ONE TABLET BY MOUTH TWICE A DAY SOLD: 04/09/2020 [facility] 1 mg 03/24/2020 12:00:00 AM EDT capsule 30 TAKE ONE CAPSULE BY MOUTH AT BEDTIME TAKE ONE CAPSULE BY MOUTH AT BEDTIME SOLD: 03/25/2020 [facility] quetiapine 300 MG Oral Tablet QUETIAPINE FUMARATE 03/24/2020 12: 00:00 AM EDT tablet 30 TAKE ONE TABLET BY MOUTH AT BEDT LULI TAKE ONE TABLET BY MOUTH AT BEDTIME SOLD: 03/25/2020 [facility] 300 mg 03/23/2020 12:00:00 AM EDT capsule 60 TAKE TWO CAPSULES BY MOUTH AT BEDTIME TAKE TWO CAPSULES BY MOUTH AT BEDTIME SOLD: 03/25/2020 [facility] 7.5 mg 03/23/2020 12:00:00 AM EDT tablet 30 TAKE ONE TABLET BY MOUTH TWICE A DAY TAKE ONE TABLET BY MOUTH TWICE A DAY SOLD: 03/25/2020 [facility] [place] 300 MG Oral Capsule lithium carbonate 12:00:00 AM EDT 300 mg by mouth completed [id number] lithium car bonate by mouth [id number] 03/22/2020 at bedtime 300 mg capsule 09891 [id number] Roxyanahi Jaime [id number] [facility] [place] Carbon[place] 300 MG Oral Capsule lithium carbonate 12:00:00 AM EDT 300 mg by mouth completed [id number] lithium car bonate by mouth [id number] 03/22/2020 at bedtime 300 mg capsule 90359 [id number] Roxyanahi Jaime [id number] [facility] ([facility]) buspirone hydrochloride 7.5 MG Oral Tablet buspirone 03/22 12:00:00 AM EDT 7.5 mg by mouth completed 398772 buspirone by mouth C38 [id number] 03/22/2020 04/19/2020 twice a day 7.5 mg tablet 95489 [id number] Rayo Jaime [id number] [facility]) quetiapine 300 MG Oral Tablet QUETIAPINE FUMARATE 03/19/2020 12: 00:00 AM EDT tablet 7 TAKE ONE TABLET BY MOUTH AT BEDT LULI TAKE ONE TABLET BY MOUTH AT BEDTIME SOLD: 03/19/2020 [facility] quetiapine 300 MG Oral Tablet quetiapine 03/18/2020 12:00:00 AM EDT 300 mg by mouth completed 419351 quetiapine by mouth [id number] 201905/03/2020 at bedtime 7 300 mg tablet 55785 [id number] Talia Jaime [id number] [facility]) quetiapine 300 MG Oral Tablet quetiapine 03/18/2020 12:00:00 AM EDT 300 mg by mouth completed [id number] quetiapine by mouth [id number] 2019 at bedtime 7 300 mg tablet 95974 [id number] Roxy Jaime [id number] [facility] ([facility] quetiapine 300 MG Oral Tablet QUETIAPINE FUMARATE 03/12/2020 12: 00:00 AM EDT tablet 7 TAKE ONE TABLET BY MOUTH AT BEDT LULI TAKE ONE TABLET BY MOUTH AT BEDTIME SOLD: 03/12/2020 [facility] gabapentin 300 MG Oral Capsule Gabapentin 300 MG Gabapentin 300 MG 03/05/2020 12:00:00 AM EDT 1.0 {capsule} active G abapentin 300 MG eCW1 ([facility]) 300 mg 03/05/2020 12:00:00 AM EDT capsule 60 TAKE ONE CAPSULE BY MOUTH TWICE A DAY TAKE ONE CAPSULE BY MOUTH TWICE A DAY SOLD: 04/30/2020 [facility] 300 mg 03/05/2020 12:00:00 AM EDT capsule 60 TAKE ONE CAPSULE BY MOUTH TWICE A DAY TAKE ONE CAPSULE BY MOUTH TWICE A DAY SOLD: 04/02/2020 [facility] 300 mg 03/05/2020 12:00:00 AM EDT capsule 60 TAKE ONE CAPSULE BY MOUTH TWICE A DAY TAKE ONE CAPSULE BY MOUTH TWICE A DAY SOLD: 03/05/2020 [facility] gabapentin 300 MG Oral Capsule Gabapentin 300 MG Gabapentin 300 MG 03/05/2020 12:00:00 AM EDT 1.0 {capsule} active G abapentin 300 MG eCW1 ([facility]) quetiapine 300 MG Oral Tablet QUETIAPINE FUMARATE 03/05/2020 12: 00:00 AM EDT tablet 7 TAKE ONE TABLET BY MOUTH EVERY D AY AT BEDTIME TAKE ONE TABLET BY MOUTH EVERY DAY AT BEDTIME SOLD: 03/05/2020 [facility] 300-30 mg 01/28/2020 12:00:00 AM EDT tablet 12 TAKE 1 TABLET BY MOUTH EVERY 4-6 HOURS NEEDED FOR PAIN MAXIMUM DAILY DOSE = 6 TABLETS TAKE 1 TABLET BY MOUTH EVERY 4-6 HOURS NEEDED FOR PAIN MAXIMUM DAILY DOSE = 6 TABLETS SOLD: 01/28/2020 [facility] 500 mg 01/09/2020 12:00:00 AM EDT capsule 14 TAKE 1 CAPSULE BY MOUTH TWO TIMES A DAY TAKE 1 CAPSULE BY MOUTH TWO TIMES A DAY SOLD: 01/09/2020 [facility] 18-400 mg-mcg 01/06/2020 12:00:00 AM EDT tablet 30 TAKE ONE TABLET BY MOUTH DAILY DIRECTED TAKE ONE TABLET BY MOUTH DAILY DIRECTED SOLD: 01/09/2020 [facility] 18-400 mg-mcg 01/06/2020 12:00:00 AM EDT tablet 30 TAKE ONE TABLET BY MOUTH DAILY DIRECTED TAKE ONE TABLET BY MOUTH DAILY DIRECTED SOLD: 04/02/2020 [facility] 18-400 mg-mcg 01/06/2020 12:00:00 AM EDT tablet 30 TAKE ONE TABLET BY MOUTH DAILY DIRECTED TAKE ONE TABLET BY MOUTH DAILY DIRECTED SOLD: 02/29/2020 [facility] 10-325 mg 01/02/2020 12:00:00 AM EDT tablet 12 TAKE 1 TABLET BY MOUTH EVERY 4 TO 6 HOURS NEEDED MAX DAILY DOSE = 4 TABLETS TAKE 1 TABLET BY MOUTH EVERY 4 TO 6 HOURS NEEDED MAX DAILY DOSE = 4 TABLETS SOLD: 01/02/2020 [facility] 300 mg 12/26/2019 12:00:00 AM EDT capsule 28 TAKE ONE CAPSULE BY MOUTH EVERY 6 HOURS FOR 7 DAYS TAKE ONE CAPSULE BY MOUTH EVERY 6 HOURS FOR 7 DAYS HERMAN [facility] 10-325 mg 12/26/2019 12:00:00 AM EDT tablet 12 TAKE 1 TABLET BY MOUTH EVERY 4 TO 6 HOURS NEEDED MAXIMUM DAILY DOSE = 4 TABLETS TAKE 1 TABLET BY MOUTH EVERY 4 TO 6 HOURS NEEDED MAXIMUM DAILY DOSE = 4 TABLETS SOLD: 12/26/2019 [facility] 300 mg 12/23/2019 12:00:00 AM EDT capsule 60 TAKE TWO CAPSULES BY MOUTH DAILY AT BEDTIME TAKE TWO CAPSULES BY MOUTH DAILY AT BEDTIME SOLD: 12/23/2019 [facility] [place] 300 MG Oral Capsule lithium carbonate 12:00:00 AM EDT 300 mg by mouth completed [id number] lithium car bonate by mouth [id number] 12/23/2019 01/22/2020 at bedtime 30 300 mg capsule 83655 1 [phone] Roxy Jaime [id number] [facility] ([facility]) quetiapine 300 MG Oral Tablet QUETIAPINE FUMARATE 11/20/2019 12: 00:00 AM EDT tablet 30 TAKE ONE TABLET BY MOUTH AT BEDT LULI TAKE ONE TABLET BY MOUTH AT BEDTIME SOLD: 12/18/2019 [facility] quetiapine 300 MG Oral Tablet QUETIAPINE FUMARATE 11/20/2019 12: 00:00 AM EDT tablet 30 TAKE ONE TABLET BY MOUTH AT BEDT LULI TAKE ONE TABLET BY MOUTH AT BEDTIME SOLD: 11/21/2019 [facility] 1 mg 11/20/2019 12:00:00 AM EDT capsule 30 TAKE ONE CAPSULE BY MOUTH AT BEDTIME TAKE ONE CAPSULE BY MOUTH AT BEDTIME SOLD: 11/21/2019 [facility] 1 mg 11/20/2019 12:00:00 AM EDT capsule 30 TAKE ONE CAPSULE BY MOUTH AT BEDTIME TAKE ONE CAPSULE BY MOUTH AT BEDTIME SOLD: 12/18/2019 [facility] quetiapine 300 MG Oral Tablet quetiapine 11/19/2019 12:00:00 AM EDT 300 mg by mouth completed [id number] quetiapine by mouth [id number] 2019 at bedtime 300 mg tablet 95129 [id number] Roxy Jaime [id number] [facility] ([facility]) Prazosin 1 MG Oral Capsule prazosin 11/19/2019 12:00:00 AM EDT 1 mg by mouth completed 047965 prazosin by mouth [id number] 11/19/2019 at bedtime 1 mg capsule 61552 157593 [id number] Roxy Jaime [id number] [facility] ([facility]) Prazosin 1 MG Oral Capsule prazosin 11/19/2019 12:00:00 AM EDT 1 mg by mouth completed 625808 prazosin by mouth [id number] 11/19/2019 at bedtime 1 mg capsule 28721 325283 [id number] Roxy Jaime [id number] [facility] ([facility]) Fluoxetine 20 MG Oral Capsule [Prozac] Prozac 20 MG Prozac 2 0 MG 10/17/2019 12:00:00 AM EDT 1.0 {capsule} active P rozac 20 MG eCW1 ([facility]) Prazosin 1 MG Oral Capsule Prazosin HCl 1 MG Prazosin HCl 1 MG 10/17/2019 12:00:00 AM EDT 1.0 {capsule_at_bedtime} active Prazosin HCl 1 MG eCW1 ([facility]) Prazosin 1 MG Oral Capsule Prazosin HCl 1 MG Prazosin HCl 1 MG 10/17/2019 12:00:00 AM EDT active 1 capsul e at bedtime eCW1 ([facility]) Fluoxetine 20 MG Oral Capsule [Prozac] Prozac 20 MG Prozac 2 0 MG 10/17/2019 12:00:00 AM EDT active 1 capsul e eCW1 ([facility]) 10 mg 10/14/2019 12:00:00 AM EDT tablet 90 TAKE 1 TABLET BY MOUTH THREE TIMES A DAY NEEDED FOR ANXIETY TAKE 1 TABLET BY MOUTH THREE TIMES A DAY NEEDED FOR ANXIETY SOLD: 10/29/2019 [facility] 20 mg 10/14/2019 12:00:00 AM EDT capsule 60 TAKE 2 CAPSULES BY MOUTH ONCE A DAY TAKE 2 CAPSULES BY MOUTH ONCE A DAY SOLD: 11/11/2019 [facility] 20 mg 10/14/2019 12:00:00 AM EDT capsule 60 TAKE 2 CAPSULES BY MOUTH ONCE A DAY TAKE 2 CAPSULES BY MOUTH ONCE A DAY SOLD: 10/15/2019 [facility] Fluoxetine 40 MG Oral Capsule fluoxetine 10/13/2019 12:00:00 AM EDT 40 mg by mouth completed 551939 fluoxetine by mouth [id number] 201912/12/2019 once a day 30 40 mg capsule 67845 [id number] David Cardoza [id number] [facility]) Hydroxyzine Hydrochloride 10 MG Oral Tablet hydroxyzine HCl 10/13/2019 12:00:00 AM EDT 10 mg by mouth completed 680440 hydroxyzine HCl by mouth [id number] 10/13/2019 11/12/2019 three times a day 30 10 mg tablet as needed 57721 531264 [id number] David Cardoza [id number] [facility] ([facility]) quetiapine 100 MG Oral Tablet [Seroquel] Seroquel 100 MG Ser oquel 100 MG 10/10/2019 12:00:00 AM EDT active 1 tablet at bedtime eCW1 ([facility]) physical therapy eval and tx - UNK 10/10/2019 12:00:00 AM EDT active - eCW1 ([facility]) quetiapine 100 MG Oral Tablet QUETIAPINE FUMARATE 10/10/2019 12: 00:00 AM EDT tablet 30 TAKE ONE TABLET BY MOUTH DAILY A T BEDTIME TAKE ONE TABLET BY MOUTH DAILY AT BEDTIME SOLD: 10/10/2019 [facility] physical therapy eval and tx - UNK 10/10/2019 12:00:00 AM EDT active - eCW1 ([facility]) quetiapine 100 MG Oral Tablet quetiapine 10/10/2019 12:00:00 AM EDT 100 mg completed [id number] quetiapine 10/10/2019 11/19/2019 at bedtime 30 100 mg tablet 33972 [id number] David Cardoza [id number] [facility] ([facility]) quetiapine 100 MG Oral Tablet [Seroquel] Seroquel 100 MG Ser oquel 100 MG 10/10/2019 12:00:00 AM EDT 1.0 {tablet_at_bedtime} active Seroquel 100 MG eCW1 ([facility]) quetiapine 100 MG Oral Tablet QUETIAPINE FUMARATE 10/10/2019 12: 00:00 AM EDT tablet 30 TAKE ONE TABLET BY MOUTH DAILY A T BEDTIME TAKE ONE TABLET BY MOUTH DAILY AT BEDTIME SOLD: 11/05/2019 [facility] quetiapine 25 MG Oral Tablet [Seroquel] Seroquel 25 MG Seroq uel 25 MG 10/10/2019 12:00:00 AM EDT active 1 table t at bedtime eCW1 ([facility]) physical therapy eval and tx - UNK 10/10/2019 12:00:00 AM EDT active physical therapy eval and tx - eCW1 ([facility]) quetiapine 100 MG Oral Tablet quetiapine 10/10/2019 12:00:00 AM EDT 100 mg completed [id number] quetiapine 10/10/2019 12/09/2019 at bedtime 30 100 mg tablet 55566 [id number] David Cardoza [id number] [facility] ([facility]) Acetaminophen 325 MG / tramadol hydrochl oride 37.5 MG Oral Tablet [Ultracet] Ultracet 37.5-325 MG Ultracet 37.5-325 MG 09/25/2019 12:00:00 AM EST active 1 tablet as needed eCW1 ([facility]) Acetaminophen 325 MG / tramadol hydrochl oride 37.5 MG Oral Tablet [Ultracet] Ultracet 37.5-325 MG Ultracet 37.5-325 MG 09/25/2019 12:00:00 AM EST active 1 tablet as needed eCW1 ([facility]) Acetaminophen 325 MG / Oxycodone Hydroch loride 5 MG Oral Tablet Oxycodone- Acetaminophen 5-325 MG Oxycodone-Acetaminophen 5-325 MG 09/19/2019 12:00:00 A M EST active 1 tablet as neede d eCW1 ([facility]) Acetaminophen 325 MG / Oxycodone Hydroch loride 5 MG Oral Tablet Oxycodone- Acetaminophen 5-325 MG Oxycodone-Acetaminophen 5-325 MG 09/19/2019 12:00:00 A M EST active 1 tablet as neede d eCW1 ([facility]) Acetaminophen 325 MG / Oxycodone Hydroch loride 5 MG Oral Tablet Oxycodone- Acetaminophen 5-325 MG Oxycodone-Acetaminophen 5-325 MG 09/19/2019 12:00:00 A M EST 1.0 {tablet_as_needed} active O xycodone-Acetaminophen 5-325 MG eCW1 ([facility]) Acetaminophen 325 MG / Oxycodone Hydroch loride 5 MG Oral Tablet Oxycodone- Acetaminophen 5-325 MG Oxycodone-Acetaminophen 5-325 MG 09/19/2019 12:00:00 A M EST 1.0 {tablet_as_needed} active O xycodone-Acetaminophen 5-325 MG eCW1 ([facility]) 5-325 mg 09/19/2019 12:00:00 AM EST tablet 30 TAKE ONE TABLET BY MOUTH EVERY DAY NEEDED MAXIMUM DAILY DOSE = 1 TABLET TAKE ONE TABLET BY MOUTH EVERY DAY NEEDED MAXIMUM DAILY DOSE = 1 TABLET SOLD: 09/20/2019 [facility] Acetaminophen 325 MG / Oxycodone Hydroch loride 5 MG Oral Tablet Oxycodone- Acetaminophen 5-325 MG Oxycodone-Acetaminophen 5-325 MG 08/22/2019 12:00:00 A M EST active 1 tablet as neede d eCW1 ([facility]) 5-325 mg 08/22/2019 12:00:00 AM EST tablet 60 TAKE 1 TABLET BY MOUTH TWICE A DAY NEEDED MAXIMUM DAILY DOSE = 2 TABLETS TAKE 1 TABLET BY MOUTH TWICE A DAY NEEDED MAXIMUM DAILY DOSE = 2 TABLETS SOLD: 08/22/2019 [facility] quetiapine 100 MG Oral Tablet QUETIAPINE FUMARATE 08/20/2019 12: 00:00 AM EST tablet 30 TAKE ONE TABLET BY MOUTH AT BEDT LULI TAKE ONE TABLET BY MOUTH AT BEDTIME SOLD: 08/20/2019 [facility] quetiapine 100 MG Oral Tablet QUETIAPINE FUMARATE 08/20/2019 12: 00:00 AM EST tablet 30 TAKE ONE TABLET BY MOUTH AT BEDT LULI TAKE ONE TABLET BY MOUTH AT BEDTIME SOLD: 09/18/2019 [facility] 20 mg 08/19/2019 12:00:00 AM EST capsule 30 TAKE ONE CAPSULE BY MOUTH EVERY MORNING TAKE ONE CAPSULE BY MOUTH EVERY MORNING SOLD: 08/19/2019 [facility] 100 mg 08/19/2019 12:00:00 AM EST tablet 30 TAKE ONE TABLET BY MOUTH AT BEDTIME TAKE ONE TABLET BY MOUTH AT BEDTIME SOLD: 08/19/2019 [facility] 20 mg 08/19/2019 12:00:00 AM EST capsule 30 TAKE ONE CAPSULE BY MOUTH EVERY MORNING TAKE ONE CAPSULE BY MOUTH EVERY MORNING SOLD: 09/18/2019 [facility] Sertraline 100 MG Oral Tablet sertraline 08/18/2019 12:00:00 AM EST 100 mg by mouth completed [id number] sertraline by mouth [id number] 201910/17/2019 at bedtime 30 100 mg tablet 66903 [id number] David Cardoza [id number] [facility]) Fluoxetine 20 MG Oral Capsule fluoxetine 08/18/2019 12:00:00 AM EST 20 mg by mouth completed [id number] fluoxetine by mouth X38041 201910/17/2019 every morning 30 20 mg capsule 46708 [id number] [id number] Emilio Cardoza [id number] [facility] ([facility]) 325 mg (65 mg iron) 08/13/2019 12:00:00 AM EST tablet 30 TAKE ONE TABLET BY MOUTH EVERY DAY TAKE ONE TABLET BY MOUTH EVERY DAY SOLD: 08/13/2019 [facility] 325 mg (65 mg iron) 08/13/2019 12:00:00 AM EST tablet 30 TAKE ONE TABLET BY MOUTH EVERY DAY TAKE ONE TABLET BY MOUTH EVERY DAY SOLD: 11/05/2019 [facility] 325 mg (65 mg iron) 08/13/2019 12:00:00 AM EST tablet 30 TAKE ONE TABLET BY MOUTH EVERY DAY TAKE ONE TABLET BY MOUTH EVERY DAY SOLD: 10/06/2019 [facility] 325 mg (65 mg iron) 08/13/2019 12:00:00 AM EST tablet 30 TAKE ONE TABLET BY MOUTH EVERY DAY TAKE ONE TABLET BY MOUTH EVERY DAY SOLD: 09/10/2019 [facility] Cyclobenzaprine hydrochloride 5 MG Oral Tablet Cyclobe nzaprine HCl 5 MG Cyclobenzaprine HCl 5 MG 08/12/2019 12:00:00 AM EST active 1 tablet as needed [facility] ([facility]) 5 mg 08/12/2019 12:00:00 AM EST tablet 60 TAKE ONE TABLET BY MOUTH TWICE A DAY NEEDED TAKE ONE TABLET BY MOUTH TWICE A DAY NEEDED SOLD: 08/13/2019 [facility] 20 mg 07/29/2019 12:00:00 AM EST tablet 10 TAKE TWO TABLETS BY MOUTH EVERY MORNING FOR 5 DAYS START 07/30 WITH BREAKFAST TAKE TWO TABLETS BY MOUTH EVERY MORNING FOR 5 DAYS START 07/30 WITH BREAKFAST SOLD: 07/29/2019 [facility] Oxycodone Hydrochloride 5 MG Oral Tablet Oxycodone HCl 5 MG Oxycodone HCl 5 MG 07/24/2019 12:00:00 AM EST active 1 tablet as needed eCW1 ([facility]) Oxycodone Hydrochloride 5 MG Oral Tablet Oxycodone HCl 5 MG Oxycodone HCl 5 MG 07/24/2019 12:00:00 AM EST 1.0 {tablet_as_needed} active Oxycodone HCl 5 MG eCW1 ([facility]) 7.5-325 mg 07/24/2019 12:00:00 AM EST tablet 60 TAKE ONE TABLET BY MOUTH EVERY 12 HOURS NEEDED MAXIMUM DAILY DOSE = 2 TABLETS TAKE ONE TABLET BY MOUTH EVERY 12 HOURS NEEDED MAXIMUM DAILY DOSE = 2 TABLETS SOLD: 07/24/2019 [facility] Acetaminophen 325 MG / Oxycodone Hydroch loride 7.5 MG Oral Tablet Oxycodone- Acetaminophen 7.5-325 MG Oxycodone-Acetaminophen 7.5-325 MG 07/24/2019 12:00:00 AM EST active 1 tablet as neede d eCW1 ([facility]) Oxycodone Hydrochloride 5 MG Oral Tablet Oxycodone HCl 5 MG Oxycodone HCl 5 MG 07/24/2019 12:00:00 AM EST 1.0 {tablet_as_needed} active Oxycodone HCl 5 MG eCW1 ([facility]) Oxycodone Hydrochloride 5 MG Oral Tablet Oxycodone HCl 5 MG Oxycodone HCl 5 MG 07/24/2019 12:00:00 AM EST active 1 tablet as needed eCW1 ([facility]) Acetaminophen 325 MG / Oxycodone Hydroch loride 7.5 MG Oral Tablet Oxycodone- Acetaminophen 7.5-325 MG Oxycodone-Acetaminophen 7.5-325 MG 07/24/2019 12:00:00 AM EST active 1 tablet as neede d eCW1 ([facility]) Oxycodone Hydrochloride 5 MG Oral Tablet Oxycodone HCl 5 MG Oxycodone HCl 5 MG 07/24/2019 12:00:00 AM EST active 1 tablet as needed eCW1 ([facility]) Oxycodone Hydrochloride 5 MG Oral Tablet Oxycodone HCl 5 MG Oxycodone HCl 5 MG 07/24/2019 12:00:00 AM EST active 1 tablet as needed eCW1 ([facility]) Oxycodone Hydrochloride 5 MG Oral Tablet Oxycodone HCl 5 MG Oxycodone HCl 5 MG 07/24/2019 12:00:00 AM EST active 1 tablet as needed eCW1 ([facility]) Oxycodone Hydrochloride 5 MG Oral Tablet Oxycodone HCl 5 MG Oxycodone HCl 5 MG 07/24/2019 12:00:00 AM EST active 1 tablet as needed eCW1 ([facility]) 1 ML Ketorolac Tromethamine 30 MG/ML Car tridge ketorolac (TORADOL) injection 15 mg ketorolac (TORADOL) injection 15 mg 07/22/2019 06:30:00 PM EST 15 mg Intramuscular completed 15 mg, Intr amuscular, Once, 07/22/19 at 1830, For 1 dose [facility] Medication administered onsite benzonatate 100 MG Oral Capsule [Tessalon Perles] Joanie sol Perles 100 MG Tessalon Perles 100 MG 07/21/2019 12:00:00 AM EST active 1 capsule as needed eCW1 ([facility]) benzonatate 100 MG Oral Capsule [Tessalon Perles] Joanie sol Perles 100 MG Tessalon Perles 100 MG 07/21/2019 12:00:00 AM EST active 1 capsule as needed eCW1 ([facility]) Amoxicillin 875 MG / Clavulanate 125 MG Oral Tablet Amoxicillin-Pot Clavulanate 875-125 MG Amoxicillin-Pot Clavulanate 875-125 MG 07/21/2019 12:00:00 AM ES T active 1 tablet eCW1 ([facility]) benzonatate 100 MG Oral Capsule [Tessalon Perles] Joanie sol Perles 100 MG Tessalon Perles 100 MG 07/21/2019 12:00:00 AM EST active 1 capsule as needed eCW1 ([facility]) benzonatate 100 MG Oral Capsule BENZONATATE 07/21/2019 12:00:00 AM EST capsule 21 TAKE ONE CAPSULE BY MOUTH THREE TIMES A DAY NEEDED TAKE ONE CAPSULE BY MOUTH THREE TIMES A DAY NEEDED SOLD: 07/21/2019 [facility] benzonatate 100 MG Oral Capsule [Tessalon Perles] Joanie sol Perles 100 MG Tessalon Perles 100 MG 07/21/2019 12:00:00 AM EST active 1 capsule as needed eCW1 ([facility]) Amoxicillin 875 MG / Clavulanate 125 MG Oral Tablet Amoxicillin-Pot Clavulanate 875-125 MG Amoxicillin-Pot Clavulanate 875-125 MG 07/21/2019 12:00:00 AM ES T active 1 tablet eCW1 ([facility]) Amoxicillin 875 MG / Clavulanate 125 MG Oral Tablet Amoxicillin-Pot Clavulanate 875-125 MG Amoxicillin-Pot Clavulanate 875-125 MG 07/21/2019 12:00:00 AM ES T 1.0 {tablet} active Amoxicillin-Pot Cla vulanate 875-125 MG eCW1 ([facility]) benzonatate 100 MG Oral Capsule [Tessalon Perles] Joanie sol Perles 100 MG Tessalon Perles 100 MG 07/21/2019 12:00:00 AM EST active 1 capsule as needed eCW1 ([facility]) Amoxicillin 875 MG / Clavulanate 125 MG Oral Tablet Amoxicillin-Pot Clavulanate 875-125 MG Amoxicillin-Pot Clavulanate 875-125 MG 07/21/2019 12:00:00 AM ES T active 1 tablet eCW1 ([facility]) 875-125 mg 07/21/2019 12:00:00 AM EST tablet 28 TAKE ONE TABLET BY MOUTH EVERY 12 HOURS FOR 14 DAYS TAKE ONE TABLET BY MOUTH EVERY 12 HOURS FOR 14 DAYS SOLD: 07/21/2019 [facility] Amoxicillin 875 MG / Clavulanate 125 MG Oral Tablet Amoxicillin-Pot Clavulanate 875-125 MG Amoxicillin-Pot Clavulanate 875-125 MG 07/21/2019 12:00:00 AM ES T active 1 tablet eCW1 ([facility]) benzonatate 100 MG Oral Capsule [Tessalon Perles] Joanie sol Perles 100 MG Tessalon Perles 100 MG 07/21/2019 12:00:00 AM EST 1.0 {capsule_as_nee ded} active Tessalon Perles 100 MG eCW1 ([facility]) Amoxicillin 875 MG / Clavulanate 125 MG Oral Tablet Amoxicillin-Pot Clavulanate 875-125 MG Amoxicillin-Pot Clavulanate 875-125 MG 07/21/2019 12:00:00 AM ES T active 1 tablet eCW1 ([facility]) Oxycodone Hydrochloride 10 MG Oral Tablet Oxycodone HC l 10 MG Oxycodone HCl 10 MG 06/23/2019 12:00:00 AM EST active 1 tablet as needed eCW1 ([facility]) Oxycodone Hydrochloride 10 MG Oral Tablet Oxycodone HC l 10 MG Oxycodone HCl 10 MG 06/23/2019 12:00:00 AM EST active 1 tablet as needed eCW1 ([facility]) Oxycodone Hydrochloride 10 MG Oral Tablet Oxycodone HC l 10 MG Oxycodone HCl 10 MG 06/23/2019 12:00:00 AM EST active 1 tablet as needed eCW1 ([facility]) Oxycodone Hydrochloride 10 MG Oral Tablet Oxycodone HC l 10 MG Oxycodone HCl 10 MG 06/23/2019 12:00:00 AM EST active 1 tablet as needed eCW1 ([facility]) Oxycodone Hydrochloride 10 MG Oral Tablet Oxycodone HC l 10 MG Oxycodone HCl 10 MG 06/23/2019 12:00:00 AM EST 1.0 {tablet_as_needed} active Oxycodone HCl 10 MG eCW1 ([facility]) 10 mg 06/23/2019 12:00:00 AM EST tablet 60 TAKE 1 TABLET BY MOUTH NEEDED EVERY 12 HOURS MAXIMUM DAILY DOSE = 2 TABLETS TAKE 1 TABLET BY MOUTH NEEDED EVERY 12 HOURS MAXIMUM DAILY DOSE = 2 TABLETS SOLD: 06/23/2019 [email or web address] Oxycodone Hydrochloride 10 MG Oral Tablet Oxycodone HC l 10 MG Oxycodone HCl 10 MG 06/23/2019 12:00:00 AM EST active 1 tablet as needed eCW1 ([facility]) Oxycodone Hydrochloride 10 MG Oral Tablet Oxycodone HC l 10 MG Oxycodone HCl 10 MG 06/23/2019 12:00:00 AM EST active 1 tablet as needed eCW1 ([facility]) Oxycodone Hydrochloride 10 MG Oral Tablet Oxycodone HC l 10 MG Oxycodone HCl 10 MG 06/23/2019 12:00:00 AM EST active 1 tablet as needed eCW1 ([facility]) 10 mg 05/12/2019 12:00:00 AM EDT capsule 90 TAKE ONE CAPSULE BY MOUTH EVERY DAY TAKE ONE CAPSULE BY MOUTH EVERY DAY SOLD: 08/13/2019 [email or web address] Citalopram 10 MG Oral Tablet citalopram 05/08/2019 12:00:00 AM EDT 10 mg by mouth completed [id number] citalopram by mouth [id number] 201807/07/2019 every morning 30 10 mg tablet [id number] Varghese Cardoza [id number] [facility] ([facility]) 325 mg (65 mg iron) 03/31/2019 12:00:00 AM EDT tablet 30 TAKE ONE TABLET BY MOUTH EVERY DAY TAKE ONE TABLET BY MOUTH EVERY DAY SOLD: 07/17/2019 [facility] 18-400 mg-mcg 01/17/2019 12:00:00 AM EDT tablet 30 TAKE ONE TABLET BY MOUTH DAILY DIRECTED TAKE ONE TABLET BY MOUTH DAILY DIRECTED SOLD: 08/13/2019 [facility] 18-400 mg-mcg 01/17/2019 12:00:00 AM EDT tablet 30 TAKE ONE TABLET BY MOUTH DAILY DIRECTED TAKE ONE TABLET BY MOUTH DAILY DIRECTED SOLD: 11/05/2019 [facility] 18-400 mg-mcg 01/17/2019 12:00:00 AM EDT tablet 30 TAKE ONE TABLET BY MOUTH DAILY DIRECTED TAKE ONE TABLET BY MOUTH DAILY DIRECTED SOLD: 10/06/2019 [facility] 18-400 mg-mcg 01/17/2019 12:00:00 AM EDT tablet 30 TAKE ONE TABLET BY MOUTH DAILY DIRECTED TAKE ONE TABLET BY MOUTH DAILY DIRECTED SOLD: 12/10/2019 [facility] 18-400 mg-mcg 01/17/2019 12:00:00 AM EDT tablet 30 TAKE ONE TABLET BY MOUTH DAILY DIRECTED TAKE ONE TABLET BY MOUTH DAILY DIRECTED SOLD: 09/10/2019 [facility] 18-400 mg-mcg 01/17/2019 12:00:00 AM EDT tablet 30 TAKE ONE TABLET BY MOUTH DAILY DIRECTED TAKE ONE TABLET BY MOUTH DAILY DIRECTED SOLD: 07/17/2019 [facility] 18-400 mg-mcg 01/17/2019 12:00:00 AM EDT tablet 30 TAKE ONE TABLET BY MOUTH DAILY DIRECTED TAKE ONE TABLET BY MOUTH DAILY DIRECTED SOLD: 06/15/2019 [facility] Oxycodone Hydrochloride 5 MG Oral Tablet oxyCODONE (ROXICODONE) 5 MG immediate release tablet oxyCODONE (ROXICODONE) 5 MG immediate release tablet 0 11/08/2018 12:00:00 AM EDT 5 mg Oral aborted Take 1 tablet by mouth every 6 (six) hours as needed for Pain, Max Daily Dose: 20 mg [facility] Aspirin 81 MG Delayed Release Oral Tablet aspirin 81 M G EC tablet aspirin 81 MG EC tablet 10/26/2018 12:00:00 AM EDT 81 mg Oral active Take 1 tablet by mouth daily [facility] 24 HR venlafaxine 150 MG Extended Releas e Oral Tablet Venlafaxine HCl 150 MG TB24 Venlafaxine HCl 150 MG TB24 1 {tbl} Oral aborted Take 1 tablet by mouth Two Times Daily [facility] Insurance Providers Payer name Policy type / Coverage type Policy ID Covered republican ID Covered republican's relationship to rodriguez Policy Rodriguez Plan Information [employer] COMMUNITY PLAN MCDHMO [id number] SP [id number] UNHC COMMUNITY PLAN XIX [id number] 18 [id number] [facility] MEDICAID [id number] S [id number] [facility] MED[facility] [id number] S [id number] [facility]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 nce characteristicsdetermined by [facility]. It has not been cleared or approvedby the Food and Drug Administration. ID Date Data Source [id number] 05/04/2020 10:41:00 AM T [facility] Name Value Range Interpretation Code Description Data Ashly rce(s) Supporting Document(s) LITHIUM < 0.2 mmol/L 0.6-1.20 [facility] ID Date Data Source [id number] 05/04/2020 10:21:00 AM EDT [facility] Name Value Range Interpretation Code Description Data Ashly rce(s) Supporting Document(s) CHOLESTEROL 152 mg/dL 0-200 [facility] TRIGLYCERIDES 103 mg/dL 0-150 [facility] LDL CHOLESTEROL 66 mg/dL 0-100 [facility] HDL CHOLESTEROL 65 mg/dL 40-60 H [facility] CHOL/HDL RATIO 2.3 0.0-5.0 [facility] ID Date Data Source [id number] 05/04/2020 10:21:00 AM [facility] Name Value Range Interpretation Code Description Data [facility] rce(s) Supporting Document(s) GLUCOSE 96 mg/dL 74-106 [facility] BLOOD UREA NITROGEN 9 mg/dL 7-18 [facility] ital CREATININE 0.8 mg/dL 0.6-1.0 [facility] SODIUM 141 mmol/L 136-145 [facility] POTASSIUM 4.0 mmol/L 3.5-5.1 [facility] CHLORIDE 105 mmol/L 98-107 [facility] CO2 26 mmol/L 21-32 [facility] CALCIUM 8.5 mg/dL 8.5-10.1 [facility] ANION GAP 10.0 mmol/L 5-12 [facility] GLOMERULAR FILTRATION RATE 78 mL/min [facility] GFR IS CALCULATED IN mL/min/1.73m2 NATACHA L FUNCTION: >90MILDLY DECREASED: 60-89MILDY TO MODERATELY DECREASED: 45-59 MODERATELY TO SEVERELY DECREASED: 30-44SEVERELY DECREASED: 15-29RENAL FAILURE: <15 AST 26 U/L 15-37 [facility] ALT 48 U/L 12-78 [facility] ALKALINE PHOSPHATASE 179 U/L 46-116 [facility] pital TOTAL BILIRUBIN 0.3 mg/dL 0.2-1.0 [facility] TOTAL PROTEIN 6.8 g/dl 6.4-8.2 [facility] ALBUMIN 3.8 gm/dL 3.4-5.0 [facility] ID Date Data Source [id number] 05/04/2020 10:21:00 AM [facility] Name Value Range Interpretation Code Description Data Ashly rce(s) Supporting Document(s) FREE T4 0.90 ng/dL 0.76-1.46 [facility] ID Date Data Source [id number] 05/04/2020 10:21:00 AM [facility] Name Value Range Interpretation Code Description Data Ashly rce(s) Supporting Document(s) TSH 1.29 uIU/mL 0.36-3.74 [facility] ID Date Data Source [id number] 05/04/2020 10:21:00 AM [facility] Name Value Range Interpretation Code Description Data Ashly rce(s) Supporting Document(s) ESTIMATED AVERAGE GLUCOSE 108.3 mg/dL [facility] ID Date Data Source [id number] 05/04/2020 10:21:00 AM [facility] Name Value Range Interpretation Code Description Data Ashly rce(s) Supporting Document(s) HGBA1C 5.4 % 3.8-5.6 [facility] Diabetic > or = to 6.5%Prediabetes 5.7-6 .4%Normal <5.7 ID Date Data Source [id number] 05/04/2020 09:48:00 AM [facility] Name Value Range Interpretation Code Description Data Ashly rce(s) Supporting Document(s) WHITE BLOOD COUNT 7.8 K/mm3 4.0-10.0 [facility] RED BLOOD COUNT 4.83 M/mm3 4.00-5.50 [facility] HEMOGLOBIN 14.1 gm/dL 12.0-16.0 [facility] HEMATOCRIT 42.0 % 36.0-48.8 [facility] MEAN CELL VOLUME 87.0 fl 80-96 [facility] MEAN CORPUSCULAR HEMOGLOBIN 29.2 pg 27.0-31.0 [facility] MEAN CORPUSCULAR HGB CONC 33.6 g/dl 32.0-36.0 [facility] RED CELL DISTRIBUTION WIDTH 12.3 % 10.0-14.5 [facility] PLATELET COUNT 297 K/mm3 172-450 [facility] MEAN PLATELET VOLUME 9.7 fl 9.0-13.0 [facility] pital GRAN % 66.6 % 50-80.0 [facility] IG% 0.1 % 0.0-0.2 [facility] LYMPH % 26.5 % 25.0-50.0 [facility] MONO % 5.5 % 2.0-10.0 [facility] EOS % 1.0 % 0-5.0 [facility] BASO % 0.3 % 0.0-2.0 [facility] GRAN # 5.2 K/mm3 2.0-8.00 [facility] IG# 0.0 K/mm3 0.0-0.2 [facility] LYMPH # 2.1 K/mm3 1.0-5.0 [facility] MONO # 0.4 K/mm3 0.10-1.20 [facility] EOS # 0.1 K/mm3 0.0-0.5 [facility] BASO # 0.0 K/mm3 0.0-0.2 [facility] ID Date Data Source [id number] 05/02/2020 03:33:00 PM EDT [facility] Name Value Range Interpretation Code Description Data Ashly rce(s) Supporting Document(s) Sodium 139 mmol/L 136-145 Normal (applies to non-numeric resul ts) [facility] Potassium 3.5-5.1 Normal (applies to non-numeric resul ts) [facility] Chloride 105 mmol/L 98-107 Normal (applies to non-numeric resul ts) [facility] Carbon Dioxide CO2 21-32 Normal (applies to non-numer ic results) [facility] Anion Gap 5.0-16.0 Normal (applies to non-numeric resul ts) [facility] BUN 6 mg/dL 7-18 Below low normal [facility] spital Creatinine,Serum 0.7-1.2 Normal (applies to non-numeric results) [facility] GFR >60 Normal (applies to non-numeric results) [facility] Glucose Level 94 mg/dL 60-99 Normal (applies to non-numeric re sults) [facility] Reference range is only applicable when patient is fasting Note the following drug interference: Sulfasalazine Sulfapyridine Can see falsely depressed Can see falsely elevated result with up to 17% results with up to 11% decrease in measurement increase in measurement Recommend patients be collected for this test prior to administration of either drug. Calcium 8.5-10.1 Below low normal [facility] spital Bilirubin,Total 0.1-1.9 Normal (applies to non-numeric results) [facility] SGOT(AST) 30 U/L 15-37 Normal (applies to non-numeric resul ts) [facility] Note the following drug interference: Sulfasalazine Sulfapyridine Can see falsely depressed Can see falsely elevated result with up to 10% results with up to 10% decrease in measurement increase in measurement Recommend patients be collected for this test prior to administration of either drug. SGPT(ALT) 46 U/L 12-78 Normal (applies to non-numeric resul ts) [facility] Note the following drug interference: Sulfasalazine Sulfapyridine Can see falsely depressed Can see falsely elevated result with up to 29% results with up to 10% decrease in measurement increase in measurement Recommend patients be collected for this test prior to administration of either drug. Alkaline Phosphatase 160 U/L 38-126 Above high normal [facility] can increase Alkaline Phosp le vels up to 2 times the normal adult value. Normal values for children and adolescents are 2 to 3 times the normal adult value. Total Protein 6.0-8.2 Normal (applies to non-numeric re sults) [facility] Albumin Level 3.4-5.0 Below low normal [facility] ID Date Data Source [id number] 05/02/2020 03:19:00 PM EDT [facility] Name Value Range Interpretation Code Description Data Ashly rce(s) Supporting Document(s) White Blood Count 3.5-10.5 Normal (applies to non-numeri c results) [facility] Red Blood Count 3.90-5.00 Normal (applies to non-numeric results) [facility] Hemoglobin 12.0-15.5 Normal (applies to non-numeric resul ts) [facility] Hematocrit 34.9-44.5 Normal (applies to non-numeric resul ts) [facility] Mean Corpuscular Volume 81.2-95.1 Normal (applies to non- numeric results) [facility] Mean Corpuscular Hgb 25.6-32.2 Normal (applies to non-num josé results) [facility] Mean Corpuscular Hgb Conc 32.0-36.0 Normal (applies to no n-numeric results) [facility] Red Cell Distribution Width 11.9-15.5 Normal (appli es to non-numeric results) [facility] Platelet Count 297 x10 3/uL 150-450 Normal (applies to non-numeric results) [facility] Mean Platelet Volume 9.4-12.4 Normal (applies to non-num josé results) [facility] Neutrophils% (Auto) 31.0-71.0 Normal (applies to non-nume tamie results) [facility] Lymphocytes% (Auto) 20.0-55.0 Normal (applies to non-nume tamie results) [facility] Monocytes% (Auto) 4.0-12.0 Normal (applies to non-numeri c results) [facility] Eosinophils% (Auto) 1.0-8.0 Below low normal [facility] Basophils% (Auto) 0.0-2.0 Normal (applies to non-numeri c results) [facility] Immature Granulocytes% (Auto) 0.0-2.0 Normal (sohail lies to non-numeric results) [facility] Neutrophils# (Auto) 1.50-6.20 Normal (applies to non-nume tamie results) [facility] Lymphocytes# (Auto) 1.20-4.00 Normal (applies to non-nume tamie results) [facility] Monocytes# (Auto) 0.00-0.90 Normal (applies to non-numeri c results) [facility] Eosinophils# (Auto) 0.00-0.50 Normal (applies to non-nume tamie results) [facility] Basophils# (Auto) 0.00-0.20 Normal (applies to non-numeri c results) [facility] Immature Granulocytes# (Auto) 0.00-7.00 No rmal (applies to non-numeric results) [facility] ID Date Data Source [id number] 05/02/2020 03:13:[address] [facility] Imaging Services Department Imaging Report [address] [place], [place] [address] %(RAD)RES..mtdd.print.filter("line") Name: JUIH ROLON : 1975 Age/Sex: 44F Ordering Provider: AZAR Zelaya Med Rec #: [id number] Reg Status: [facility] ER Room #: Date of Service: 05/02/20 Report Number: [id number] cc:Curry Naidu Sr, MD Send Report To: [id number] CT/CT Abdomen & Pelvis No Contras Reason for exam: left flank pain x 4 days No prior exam is available for comparison. FINDINGS: Lung bases: Clear. Liver: Normal contour. No identified abnormality on noncontrast imaging. Biliary system: Cholecystectomy. No biliary dilatation. Pancreas: Normal. Spleen: Normal. Adrenal glands: Normal. Kidneys: Symmetric contour without mass. No renal calculi . No hydronephrosis. Urinary bladder: Unremarkable. Pelvic organs: Unremarkable. Bowel: Normal caliber without wall thickening or edema. Normal appendix. Peritoneum: No free air, no ascites. Lymph nodes: No adenopathy. Vessels: Normal abdominal aorta. Normal IVC. Bones: No acute or suspicious osseous abnormality. Left total hip arthroplasty. IMPRESSION: No acute findings. No urolithiasis or hydronephrosis. 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 Mixed zhou: Mixed zhou, probable contamination. Name Value Range Interpretation Code Description Data Ashly rce(s) Supporting Document(s) ID Date Data Source [id number] 05/04/2020 08:50:00 AM EDT [facility] Procedure Performed By: [facility] [address] [place] [address] Director: Estela Corona MD . Name Value Range Interpretation Code Description Data Ashly rce(s) Supporting Document(s) Urine Culture Normal (applies to non-numeric re sults) [facility] ID Date Data Source [id number] 05/02/2020 02:10:00 PM [facility] Collected By: Nurse Initials: af Time Collected: 1343 Collected By: Nurse Initials: af Time Collected: 1343 Name Value Range Interpretation Code Description Data Ashly rce(s) Supporting Document(s) RBC,Urine None Seen [facility] WBC,Urine None Seen [facility] Casts,Urine None Seen Normal (applies to non-numeric resu lts) [facility] Squamous Cells,Urine None Seen [facility] Bacteria,Urine None Seen [facility] Mucus,Urine None Seen [facility] ID Date Data Source [id number] 05/02/2020 02:10:00 PM [facility] Collected By: Nurse Initials: af Time Collected: 134 Collected By: Nurse Initials: af Time Collected: 1342 Name Value Range Interpretation Code Description Data Ashly rce(s) Supporting Document(s) Color,Urine Colorl-Dk Y Normal (applies to non-numeric res ults) [facility] Clarity,Urine Clear Normal (applies to non-numeric re sults) [facility] Specific [place],Urine 1.005-1.030 Normal (applies to non- numeric results) [facility] pH,Urine 5.0-8.0 Normal (applies to non-numeric resul ts) [facility] Protein,Urine Negative Normal (applies to non-numeric re sults) [facility] Glucose,Urine Negative Normal (applies to non-numeric re sults) [facility] Ketones,Urine Negative Normal (applies to non-numeric re sults) [facility] Blood,Urine Negative [facility] Bilirubin,Urine Negative Normal (applies to non-numeric results) [facility] Urobilinogen,Urine 0.2-1.0 Normal (applies to non-numer ic results) [facility] Leukocyte Esterase,Urine Negative [facility] Nitrite,Urine Negative Normal (applies to non-numeric re sults) [facility] ID Date Data Source [id number] 05/02/2020 12:26:[address] [facility] l Patient: JUHI ROLON Observation Re port - [facility], [facility].VisitID: [id number] [place] [address] [phone], FRegistration Date/Time: 05/02/2020 12:04 Weight:93.8 kg (S). Height/Length:63 inches (S). BMI:36.6 PAST HISTORYMedications:Acetaminophen Oral (Tablet 500 mg) 2 tablets, as needed, last dose 05/02/2020.Iron Oral (Tablet 325 (65 Fe) mg) 1 tablet, daily every AM, last dose 05/01/2020.Multivitamins Oral 1 pill, daily every AM, last dose 05/01/2020.Nexplanon Subcutaneous (Implant 68 mg), continuous. Allergies:Bee swax.(Anaphylaxis)Codeine.(nausea)Ibuprofen. (Gastric Bypass). FAMILY HISTORYNegative. (Electronically signed by David Choe MD 05/02/2020 12:18) Name Value Range Interpretation Code Description Data Ashly rce(s) Supporting Document(s) ID Date Data Source [id number] 03/18/2020 12:42:00 PM EDT [facility] DATE OF EXAMINATION: 03/16/2020 15:02 EDT MAMMO SCREEN BILAT WITH CAD HISTORY: Screening Based on the personal and family history information your patient supplied atthe time of imaging, her lifetime risk of breast cancer estimated date by theTyrer-Cuzick model is 11.5%. If anything changes in the personal and/or familyhistory this percentage could increase or decrease. Currently, NCCN and ACSrecommended adjunctive breast MRI screening starting at age 30 for women with a> 20-25% lifetime risk of developing breast cancer. Comparison is made to prior study dated 09/23/2018. 2-D bilateral digital mammogram in the CC and MLO planes were performed withsupplemental 3-D tomosynthesis of both breasts. The images were analyzed through the latest version of the BlurttD computer aided diagnosis system. The patient states that her last clinical breast examination was 2018. Craniocaudal and oblique lateral views of the breasts were obtained. There arescattered areas of fibroglandular density. There is no dominant mass,suspicious clustered calcification, or architectural distortion. IMPRESSION: No mammographic evidence of malignancy. BIRAD 2 - Benign Findings, Routine Yearly Mammographic Follow-up recommended. 10-15% of cancers are not identified by mammography. This usually occurs whenthe mass is of the same radiographic density as the surrounding breast tissue,emphasizing the importance of breast self examination (BSE) and physicalexamination. A normal mammogram should not delay biopsy if a suspicious mass orabnormal findings are present upon physical examination. Electronically signed in [id number] by: Arron Richardson M.D. 03/18/2020 12:36 EDT Name Value Range Interpretation Code Description Data Ashly rce(s) Supporting Document(s) ID Date Data Source [id number] 01/10/2020 10:12:[address] [facility], [place] XR HIP- UNILAT, 2-3 VIEWS [id number] RE SULTInterpreted by:BETTYE Leo pelvis and left hip 2 viewsINDICATION: Total hip arthroplastyCOMPARISON: Left hip radiographs 07/22/2019FINDINGS:There is again diffuse decreased bone mineralization. The right femoroacetabular joint space is maintained. Mild degenerative changes of the pubic symphysis including joint space narrowing, subchondral sclerosis, and peripheral osteophytosis. Status post total left hip arthroplasty. No periprosthetic lucency is seen to indicate hardware failure or loosening. No acute fracture or dislocation. Surgical clips again overlie the pelvis and left than the right hips.IMPRESSION:Status post total left hip arthroplasty without evidence of hardware failure.This document has been electronically signed by Saravanan Tavares MD on 01/10/2020 10:10 AM Name Value Range Interpretation Code Description Data Ashly rce(s) Supporting Document(s) ID Date Data Source [id number] 01/09/2020 01:13:[address] [facility], [place] Name Value Range Interpretation Code Description Data Ashly rce(s) Supporting Document(s) Progress Note [facility] FHAJCo0kQuHHIfQd15/QXCplMGQwg6RaNRgqHZv7XDuuCVDmG5FbAXV3dZ6pCCH6WVkLKuTgAvFpWtQ8 [facility] [file] AgICAgICAgICAgICAgICAgICAgICAgICAgICAgICAgICAgICAgICAgICAgICAgICAgICAgICAgICAgIC AgICAgICAgICAgICAgICANCiAgICAgICAgICAgICAgICAgICAgICAgICAgICAgICAgICAgICAgICAgIC AgICAgICAgICAgICAgICAgICAgICAgICAgICAgICAg ICAgICAgICAgICAgICAgICAgICAgICAgICANCiAgICAgICAgICAgICAgICAgICAgICAgICAgICAgICAg ICAgICAgICAgICAgICAgICAgICAgICAgICAgICAgICAgICAgICAgICAgICAgICAgICAgICAgICAgICAg ICAgICAgICANCiAgICAgICAgICAgICAgICAgICAgIC AgICAgICAgICAgICAgICAgICAgICAgICAgICAgICAgICAgICAgICAgICAgICAgICAgICAgICAgICAgIC AgICAgICAgICAgICAgICAgICANCiAgICAgICAgICAgICAgICAgICAgICAgICAgICAgICAgICAgICAgIC AgICAgICAgICAgICAgICAgICAgICAgICAgICAgICAg ICAgICAgICAgICAgICAgICAgICAgICAgICAgICANCiAgICAgICAgICAgICAgICAgICAgICAgICAgICAg ICAgICAgICAgICAgICAgICAgICAgICAgICAgICAgICAgICAgICAgICAgICAgICAgICAgICAgICAgICAg ICAgICAgICAgICANCiAgICAgICAgICAgICAgICAgIC AgICAgICAgICAgICAgICAgICAgICAgICAgICAgICAgICAgICAgICAgICAgICAgICAgICAgICAgICAgIC AgICAgICAgICAgICAgICAgICAgICANCiAgICAgICAgICAgICAgICAgICAgICAgICAgICAgICAgICAgIC AgICAgICAgICAgICAgICAgICAgICAgICAgICAgICAg ICAgICAgICAgICAgICAgICAgICAgICAgICAgICAgICANCiAgICAgICAgICAgICAgICAgICAgICAgICAg ICAgICAgICAgICAgICAgICAgICAgICAgICAgICAgICAgICAgICAgICAgICAgICAgICAgICAgICAgICAg ICAgICAgICAgICAgICANCiAgICAgICAgICAgICAgIC AgICAgICAgICAgICAgICAgICAgICAgICAgICAgICAgICAgICAgICAgICAgICAgICAgICAgICAgICAgIC AgICAgICAgICAgICAgICAgICAgICAgICANCjw/sGLhC4fwvJEvxlV4M5jqLk1QUt5DXJ1oz6QqUCHvDM wwqwWcEpjFPxLaTHWvLvpKDst0PZppDX9NkGOgE1Yl M4EyPKooNN1CSHTxBQMcqQEgBLYrIOLdHzP3HFSwIIsiLU4XcFZsFJfyZCAvFGAbYjQjIAYmND2AXNHp D603jtPtAs8GFm5AAbWbMP9nhv2SSfVsOGMuYopAGcv6AKnlFA2AgBMicWAlYFRfTUCUUyHmU8brx2Bc PnTzCEGKTFlyAA2Gl9TykRBpDBp+Cb8EZU1bt8BcKC awAQAyJU6jiz1LQYaLSyFkE3HvlGbhXWYju9lwJZXuRS1jjFSoQQS5XRS4LC9dOEQOs52qy6njiXdfTH VfGPImWs7nMY9eTILfGBQeHcC4RYRYAQ5LNWPsCYTswGYfQPZyBRAPKY7CBHujDTV8MFHpuoMamUMcPV lxLO1RVSDfkqNcWtDnLEIZESo+Op5ATU4ap2PdLYsu DaRzAQ0bfx0BULuQThFfM3B4jJYaH2Z7RUurXd8BSMBuNCRbZlGeUQLDJResLS2ZAL2agjK0SC0MnQBf EZUpZMGtyCEgGQe1F50bmYYxHZxrYL3EHSS+Jones+Yr8YVHXrEICjWUElAsHbKKYVXpKuQ8YcH6BYg1Qo K8CrMU46cZeomzAmLFwwMN4VCL6sWAZdQJEILE6NsC OajJ2vtaOkKSAqZTUIDmWbA68mdZXyGESlRMYkALLkAu9BDIZgE6HzthQjkWckvkDfTJPoJYHQBT8NDF jcfdRgvCArtZhfKZ76mCvwLT6HGv2ZVjPqZL2qww3HdSTeKo7HZRNvWd9ZYIEaNRZoNWZvXTZ0NQBoHv HsIViwICYuJXAnDPB9IXXxHQOhZP0PXzWxXQKyRcY7 TJCfXYDxEFRoss1DXRObLXJdUGTuKfQyKINdXNKdXZbjONAsIDFbVQR8SEJeBEZdXM6GVnVrLWDbRIDj XTqkVMFiKKYjsl4DMQYwXRTrOGWzFRUfCUYfMPZcDSpcRDMmFWC3PrGhSDReQJYcBF1GMfGrLRWaHKL7 UvJxTFUsYEMqjm1JSLPiGSMvHnP6PvNlAECiZMGwUI tfOYEkEIV8CQd1LXWsDAQqPP9XAsJkOZNaWIV0RmWaZSQhFGIdrr4KMFGgAZYvEjzlVFTyXPPtJQXrMH zzDFXgEUB3WSSdELRrTKTeAW0YSpXcFLJtYQtzODycKKCnFPVjqw7LHRDwSDYuIOp4MwMmQXMxZJLqFO spOHRmALXjZpPdAVHfOABiRP5SGiRfFOZcEoS7TPPz OUYmPWZred0UUWXfEOVgXBQmAjZvPOXiWOQzQPtwKNIrHKNlKVP1GJTrCBViDR1OPcNxSLRwFbHrZBEw PNLpSBYnad0AECUeSXWyDuI9BDZaIZVoBHVzRKjkDDFkIPVaZZC4GJLbRVCtHV7ZYtRdQOVcIwV4CtXf TINuLRRccx1GIHZdVAKnGZIfWXSzNMZfWGAuILmaZU WiZMC8QydyDTOyRHZgUU4OLjTlIOLpUfU3MIUfVHAsQSKwqx0SzOMcbNleah0ZLDxRLa1LlDmmCOE3SG jjEc9okLNzGpOvSYURPg9UtuVcKVEwLCAZJVgxNDUvLQArRFMiPnW9BKW9Vug5ZuiaVFMtRgyuRPHlRS b7UUN8JkV5ISClSUBhISTbXNw4Ias5JAA6SnDfI9Ju LfLrBIj0CVV+CL9nXPf+Ml4Cx5LpbiV1zqAoOHelFAv7KU1PKJMQV9UAAh== ID Date Data Source [id number] 01/08/2020 10:11:00 PM EDT [facility] 1 OrderSheet [facility] Emergency Department [address] [place] [address] Phone #: ext- [phone] 01/08/2020 22:10 Patient: JUHI ROLON Sex: F : 1975 Age: 44yWEIGHT:93.8 kg (S)ALLERGIES: IbuprofenCHIEF COMPLAINT: dental painDIAGNOSIS: ToothacheLAB ORDERSOrder Description Priority Entered Acknowledged InitialedDIAGNOSTIC STUDY ORDERSOrder Description Priority Entered Acknowledged Initial edMEDICATION/IV/DRIP/FLUID ORDERSOrder Description Priority Entered Acknowledged InitialedAmoxicillin 23:11 01/08/2020 23:17 StevenCapsules PO 500 Rozina Fink RNmg (NOW x1) PA;GENERAL ORDERSOrder Description Priority Entered Acknowledged Initialed[Electronically signed by Rozina Wei (23:23 01/08/2020)][Electronically signed by Roscoe Fink RN (23:51 01/08/2020)][Electronically locked by Roscoe Fink RN (23:51 01/08/2020)] Name Value Range Interpretation Code Description Data Ashly rce(s) Supporting Document(s) ID Date Data Source [id number] 01/08/2020 10:11:00 PM EDT [facility] 1 Medication Reconciliation Report [facility] Emergency Department [address] [place] [address] Phone #: ext- [phone] 01/08/2020 22:10 Patient: JUHI ROLON Sex: F : 1975 Age: 44yWeight: 93.8 kgHeight/Length: 63 in.BMI: 36.6ALLERGIES: IbuprofenThe patient's Home Medications are listed below:CONTINUE TAKING THE FOLLOWING MEDICATIONS: Iron Oral Multivitamin OralThe source(s) of the original Home Medication information:patientThe following Medications were given to the patient in the Emergency Department:AMOXICILLIN CAPSULES [PO] PO 500 mg, administered: 01/08/2020 11:17:00 PMThe following Medications were prescribed to the patient:amoxicillin 500 mg tablet Take 1 tablet twice a day for 7 days -- Dispense 14 tablet. Refills: 0.Substitution permitted.Pharmacy - [id number] - [id number] ; [place], [place] [id number]. . -- AZAR Alan Name Value Range Interpretation Code Description Data Ashly rce(s) Supporting Document(s) ID Date Data Source [id number] 01/08/2020 10:11:00 PM EDT [facility] 1 Medication Administration Record [facility] Emergency Department [address] [place] [address] Phone #: ext- [phone] 01/08/2020 22:10 Patient: JUHI ROLON Sex: F : 1975 Age: 44yWeight: 93.8 kgHeight/Length: 63 inBMI: 36.6ALLERGIES: Ibuprofen Date/Time Medication Administered Medication OrderedGiven AMOXICILLIN CAPSULES [PO] Amoxicillin Capsules PO 500 mg23:17 01/08/2020 Dose: 500 mg Capsules PO (NOW x1)Roscoe Fink RN Name Value Range Interpretation Code Description Data Ashly rce(s) Supporting Document(s) ID Date Data Source [id number] 01/08/2020 10:11:00 PM EDT [facility] 1 General Instructions [facility] Emergency Department [address] [place] [address] Phone #: ext- [phone] 01/08/2020 22:10 Patient: JUHI ROLON Sex: F : 1975 Age: 44yModerate dental pain.INSTRUCTIONS(return to the ER for worsening or concerning symptoms. follow up with your dentist HILDA for recheck. Youcan try OTC topical dental pain ointment).Warnings: GENERAL WARNINGS: Return or contact your physician immediately if your conditionworsens or changes unexpectedly, if not improving as expected, or if other problems arise. Specificallyreturn if problem worsens or fails to resolve.Your Current Medications: Your current home medications have been reviewed.CONTINUE TAKING THE FOLLOWING MEDICATIONS:Iron Oral.Multivitamin Oral.Prescription Medications:amoxicillin 500 mg tablet Take 1 tablet twice a day for 7 days -- Dispense 14 tablet. Refills: 0.Substitution permitted.Pharmacy - [id number] - [id number] ; [place], [place] [id number]. .Follow-up:Follow up with your healthcare provider Dentist if not better. Call for an appointment. Reason for referral:evaluation and treatment. Summary of care provided to patient via paper.Understanding of the discharge instructions verbalized by patient. ADDITIONAL INFORMATIONDental Pain 2 General Instructions [facility] Emergency Department [address] [place] [address] Phone #: ext- [phone] 01/08/2020 22:10 Patient: JUHI ROLON Sex: F : 1975 Age: 44yA crack or cavity in a tooth can cause tooth pain. This is because the crack or cavity exposes thesensitive inner area of the tooth. An infection in the gum or the root of the tooth can cause pain andswelling. The pain is often made worse when you drink hot or cold beverages. It can also be worsewhen you bite on hard foods. Pain may spread from the tooth to your ear or the area of the jaw on thesame side.Home careFollow these tips when caring for yourself at home: Don't have hot and cold foods and drinks. Your tooth may be sensitive to changes in temperature. Use toothpaste made for sensitive teeth. Butler gently up and down instead of sideways. Brushing sideways can wear away root surfaces if they are exposed. If your tooth is chipped or cracked, or if there is a large open cavity, put oil of cloves directly on the tooth to relieve pain. You can buy oil of cloves at drugstores. Some pharmacies carry an wuuw-izf-xyqpgfb "toothache kit." This contains a paste that you can put on the exposed tooth to make it less sensitive. 3 General Instructions [facility] Emergency Department [address] [place] [address] Phone #: [phone] 01/08/2020 22:10 [id number] Sex[facility] F : 1975 Age: 44y Put a cold pack on your jaw over the sore area to help reduce pain. You may use hymb-lyq-puipwzi medicine to ease pain, unless your doctor prescribed another medicine. If you have chronic liver or kidney disease, talk with your healthcare provider before using acetaminophen or ibuprofen. Also talk with your provider if you've had a stomach ulcer or GI bleeding. If you have signs of an infection, you will be given an antibiotic. Take it as directed.Follow-up careFollow up with your dentist, or as advised. Your pain may go away with the treatment given today. Butonly a dentist can fully look at and treat the cause of your pain. This will keep the pain from comingback.Call [phone] if any of these occur: Unusual drowsiness Headache or stiff neck Weakness or fainting Difficulty swallowing or breathingWhen to seek medical adviceCall your health care provider right away if any of these occur: Your face becomes swollen or red Pain gets worse or spreads to your neck Fever of 100.4 F (38.0 C) or higher, or as directed by your healthcare provider Pus drains from the tooth [id number] [employer]. [address] [place] [address], [place] [address]. All rights reserved. This information is not intended as asubstitute for professional medical care. Always follow your healthcare professional's instructions. You have been given the following additional information: Dental Pain 4 General Instructions [facility] Emergency Department [address] [place] [address] Phone #: ext- [phone] 01/08/2020 22:10 Patient: JUHI ROLON Sex: F : 1975 Age: 44y(Electronically signed by AZAR Alan 01/08/2020 23:23) Name Value Range Interpretation Code Description Data Ashly rce(s) Supporting Document(s) ID Date Data Source [id number] 01/08/2020 10:11:00 PM EDT [facility] 1 Clinical Report - Nurses [facility] Emergency Department [address] [place] [address] Phone #: ext- [phone] 01/08/2020 22:10 Patient: JUHI ROLON Sex: F : 1975 Age: 44yTRIAGEArrived by private vehicle. Historian: patient. ( c/o tooth pain after having wisdom tooth extracted 10days ago).Triage time: 22:12 01/08/2020. Acuity: LEVEL 4.Chief Complaint: RIGHT LOWER TOOTHACHE.Alert. No acute distress.Onset. (10 days ago). She has no dental appointment scheduled.Treatment [employer]:None.SEPSIS SCREEN: Sepsis Screen negative. No suspected or confirmed signs of infection present. --22: Greg Jerez R.N.22:12 01/08/20. BP: 122/55. MAP: 77. HR: 79. RR: 16. O2 saturation: 100%. Temp: 99.3 F. Pain levelnow: 5/10. --22:17 01/08/20 Greg Jerez R.N.Weight: 93.8 kg stated. Height/Length: 63 inches Per Patient. BMI: 36.6. --22:12 01/08/20 Greg Jerez R.N.MedicationsIron Oral. Multivitamin Oral. --22:16 01/08/20 Greg Jerez R.N.AllergiesIbuprofen. --22:16 01/08/20 Greg Jerez R.N.PROBLEMS:Laceration.Hypertension.GI Disease.HTN.Neurological Disease.Lower Extremity Pain.Lung Disease. --22:16 01/08/20 Greg Jerez R.N.Medication/allergy information source: the patient. --22:17 01/08/20 Greg Jerez R.N.History 2 Clinical Report - Nurses [facility] Emergency Department [address] [place] [address] Phone #: ext- [phone] 01/08/2020 22:10 Patient: JUHI ROLON Sex: F : 1975 Age: 44y PAST MEDICAL HX: Last normal menstrual period was 3 weeks ago. Denies current . SOCIAL HX: Never smoker. No alcohol use or drug use. She was offered HIV testing but declined and hepatitis C testing but declined. She has not traveled outside the [place] Infectious disease exposure: No infectious disease exposure. Patient is not a known carrier of tuberculosis, hepatitis, HIV, MRSA or VRE. Patient is not a known carrier of CRE. SELF HARM ASSESSMENT: Self harm assessment was performed. The patient answered "no" to the question(s) "Have you recently felt down, depressed, or hopeless?", "Do you have thoughts of harming or killing yourself?", "Do you have a plan for harming or killing yourself?" and "Have you recently had thoughts about harming or killing others?". ABUSE ASSESSMENT: No report of abuse. FALL RISK ASSESSMENT: Fall risk assessment completed. No risk factors identified. --22:01/08/20 Greg Jerez R.N. Assessment The patient states feels the same. --22:01/08/20 Sorbero, Greg, R.N. Interventions Identification band on patient. To treatment room. --22:17 01/08/20 Greg Jerez R.N.PHYSICAL [id number]:01/08/20. Ambulatory to room.GENERAL / NEURO / PSYCH: Alert. Oriented X 4. Appears in no acute distress.HEENT: Pharynx within normal limits. Voice within normal limits. Mouth within normal limits uponinspection. No dental injury noted. Mucous membranes are pink.RESPIRATORY: Respirations not labored.CVS: Capillary refill less than 2 seconds.SKIN: Skin is warm and dry. Normal skin turgor. --22:01/08/20 Greg Jerez R.N.NURSING PROGRESS NOTESReassurance given. Two patient identifiers checked. Call light placed in reach. Bed placed in lowestposition. Brakes of bed on. Patient ready for evaluation- ED physician notified. --22:01/08/20Greg levy R.N. 23:01/08/2020 AMOXICILLIN CAPSULES PO Capsules 50 0 mg given. Allergies verified and confirmed 5 rights. Information reviewed with patient including reason for taking this medication, signs of allergic reaction and precautions. Verbalizes understanding. --23:01/08/20 Roscoe Fink RN.DISPOSITION / DISCHARGE 23:01/08/20. BP: 120/77. HR: 78. RR: 16. O2 saturation: 98%. Temp: 97.9 F. Pain level now 7/10. --23:01/08/20 Katiuska Ochoa R.N. 3 Clinical Report - Nurses [facility] Emergency Department [address] [place] [address] Phone #: ext- [phone] 01/08/2020 22:10 Patient: JUHI ROLON Sex: F : 1975 Age: 44y Departure time: 23:27 01/08/2020. Condition at departure: improved. No learning barriers present. Discharge instructions provided and reviewed with the patient. Reviewed medication(s) side effects, precautions, dosing and course information. Prescription(s) sent electronically to pharmacy. Reviewed referral to a dentist for followup. Patient verbalized understanding. Written instructions provided in Honduran. The patient was discharged home and accompanied by family. She left ambulatory and via private vehicle. Family member driving. --23:49 01/08/20 Roscoe Fink RN.Locked/Released at 01/08/2020 23:51 by Roscoe Fink RN Name Value Range Interpretation Code Description Data Ashly rce(s) Supporting Document(s) ID Date Data Source [id number] 01/08/2020 10:11:00 PM EDT [facility] 1 Clinical Report - Physicians/Mid Levels [facility] Emergency Department [address] [place] [address] Phone #: ext- [phone] 01/08/2020 22:10 Patient: JUHI ROLON Sex: F : 1975 Age: 44y Time Seen: 22:20 01/08/2020. Arrived- By private vehicle. Historian- patient. Disposition decision: 23:11 01/08/2020.HISTORY OF PRESENT ILLNESS Chief Complaint: DENTAL PAIN. This started several days ago and is still present. Pain described as moderate. No sore throat, mouth sores, nasal discharge or congestion or ear pain. No swollen jaw or face, jaw pain or facial pain. She has had toothache (Pt states she had a wisdom tooth removed 10 days ago. She states she had all of her teeth removed years ago and was given dentures but recently, one of her wisdom teeth erupted. Her dentist removed what he could as the root was wrapped around her jaw. Pt states she thinks there has been some swelling but no fevers, bad taste in her mouth or discharge.). (She states she called her dentist but they cannot see her until Sunday.). Similar symptoms previously. Recent medical care: The patient was seen recently by a health care provider (dentist 10 days ago).REVIEW OF SYSTEMSNo chills, fatigue, fever, double vision or ear pain. No nasal congestion, runny nose, chest pain, cough ordifficulty breathing. No abdominal pain, diarrhea, nausea, vomiting or urinary problems. No back pain,skin rash or headache. The patient has had toothache.SOCIAL HISTORYNever smoker. No alcohol use or drug use.ADDITIONAL NOTESThe nursing notes have been reviewed with agreement regarding the chief complaint, HPI, ROS, PMH andpatient medications and allergies.PHYSICAL EXAMVital Signs: 01/08/2020 22:12 BP: 122/55. MAP: 77. HR: 79. RR: 16. O2 saturation: 100%. Temp: 99.3 F.Pain level now: 11/29. Have been reviewed and appear to be correct. Blood pressure normal. Meanarterial pressure- normal. Heart rate normal. Respiratory rate normal. Temperature normal. Oxygensaturation normal.Appearance: Alert. No acute distress.Head: Normal external inspection.Eyes: Pupils equal, round and reactive to light. Conjunctivae and eyelids normal.ENT: Ears normal. Nose normal. Mild gingival erythema (over area where right lower wisdom toothwould be). No gingival bleeding or exudate. Pharynx normal. Lips normal. Uvula midline. 2 Clinical Report - Physicians/Mid Levels [facility] Emergency Department [address] [place] [address] Phone #: ext- [phone] 01/08/2020 22:10 Patient: JUHI ROLON Sex: F : 1975 Age: 44y Neck: No adenopathy. CVS: Normal heart rate and rhythm. Heart sounds normal. Respiratory: No respiratory distress. Breath sounds normal. Chest nontender. Abdomen: Soft. Skin: Normal skin color. No rash. Extremities: Extrem ities exhibit normal ROM. Neuro: Oriented X 3.PROGRESS AND PROCEDURESCourse of Care: No abscess noted. Possible mild infection. Will start pt on course of antibx (first dose ofamox given in ED today). Follow up with Dentist HILDA. Advise topical ointment (OTC) for pain in additionto tylenol, as the pt states she cannot take NSAIDs. Disposition: Discharged home. Discharge decision based on the following: patient's condition is stable; patient is ambulatory; patient's exam is stable; stable condition on repeat evaluation; social support is adequate; transportation is available; follow-up is available; clinical impression is consistent with outpatient treatment.CLINICAL IMPRESSION Moderate dental pain.INSTRUCTIONS (return to the ER for worsening or concerning symptoms. follow up with your dentist HILDA for recheck. You can try OTC topical dental pain ointment). Warnings: GENERAL WARNINGS: Return or contact your physician immediately if your condition worsens or changes unexpectedly, if not improving as expected, or if other problems arise. Specifically return if problem worsens or fails to resolve. Your Current Medications: Your current home medications have been reviewed. CONTINUE TAKING THE FOLLOWING MEDICATIONS: Iron Oral. Multivitamin Oral. Prescription Medications: amoxicillin 500 mg tablet Take 1 tablet twice a day for 7 days -- Dispense 14 tablet. Refills: 0. Substitution permitted. Pharmacy - [facility] - [address] ; [place], [place] [id number]. . 3 Clinical Report - Physicians/Mid Levels [facility] Emergency Department [address] [place] [address] Phone #: [phone] 01/08/2020 22:10 Patient: JUHI ROLON Sex: F : 1975 Age: 44y Follow-up: Follow up with your healthcare provider Dentist if not better. Call for an appointment. Reason for referral: evaluation and treatment. Summary of care provided to patient via paper. Understanding of the discharge instructions verbalized by patient.(Electronically signed by AZAR Alan 01/08/2020 23:23) Name Value Range Interpretation Code Description Data Ashly rce(s) Supporting Document(s) ID Date Data Source [id number] 01/04/2020 11:31:[address] [facility] Patient: JUHI ROLON Observation Re port - Phys[facility] Levels [facility]VisitID: [id number] [place] [address] [phone], FRegistration Date/Time: 01/01/2020 19:25 Weight:93.8 kg (S). Height/Length:63 inches (S). BMI:36.6 PAST HISTORYProblems:Acute Pain [Active].Eczema [Chronic].Anxiety Reaction [Chronic].Sleep Apnea [Chronic].Insomnia [Chronic].Hypertension [Chronic].PTSD [Chronic].Chronic left hip pain [Chronic].Depression [Chronic].Sacroiliitis [Chronic].Back Pain [Chronic].Sciatica [Chronic].Dizziness [Intermittent].Gastroenteritis [ Intermittent]. Additional Surgeries:Cholecystectomy.Gastric bypass. (Alfonso-en-y)Hip Surgery.Lasik.ORIF bilat arms.Removal of excess abdominal skin [12/27/2015]. Medications:Amoxicillin Oral (Tablet 875 mg) 1 tablet, 2x a day, last dose 01/01/20.Acetaminophen Oral (Tablet 500 mg) 2 tablets, as needed, last dose 01/01/20pm.Iron Oral (Tablet 325 (65 Fe) mg) 1 tablet, daily every AM, last dose 01/01/20.Multivitamins Oral 1 pill, daily every AM, last dose 12/31/19.Nexplanon Subcutaneous. Allergies:Beeswax.(Anaphylaxis)Codeine.(nausea)Ibuprofen. (Gastric Bypass). FAMILY HISTORYPaternal grandmother: Cancer. Paternal grandfather: Diabetes. INSTRUCTIONSYour Current Medications: Your current home medications have been reviewed. CONTINUE TAKING THE FOLLOWING MEDICATIONS:Acetaminophen Oral : Tablet 500 mg, 2 tablets, Last: 01/01/20pm, prn. Amoxicillin Oral : Tablet 875 mg, 1 tablet 2x a day, Last: 01/01/20. Iron Oral : Tablet 325 (65 Fe) mg, 1 tablet daily, Last: 01/01/20am, every AM. Multivitamins Oral : 1 pill daily, Last: 12/31/19am, every AM. Nexplanon Subcutaneous. (Electronically signed by Ming Mak 01/04/2020 23:30) Name Value Range Interpretation Code Description Data Ashly rce(s) Supporting Document(s) ID Date Data Source [id number] 01/03/2020 12:05:[address] [facility] l Name Value Range Interpretation Code Description Data Ashly rce(s) Supporting Document(s) HEP A AB, IGM Negative Negative [facility] HEP B SURFACE ANTIGEN SCREEN Negative Negative [facility] HEP B CORE AB, IGM Negative Negative [facility] HCV ANTIBODY <0.1 0.0-0.9 [facility] INFCE Result Units: s/co ratio Negative: < 0.8 Indeterminate: 0.8 - 0.9 Positive: > 0.9 The CDC recommends that a positive HCV antibody result be followed up with a HCV Nucleic Acid Amplification test ([id number]).Performed at: - [facility] [address] [id number] Director: Laisha Henriquez MD, Phone: [phone] ID Date Data Source [id number] 01/03/2020 12:05:00 PM EDT [facility] Name Value Range Interpretation Code Description Data [facility] rce(s) Supporting Document(s) Hep A Ab, IgM Negative Negative [facility] HBsAg Screen Negative Negative [facility] Hep B Core Ab, IgM Negative Negative [facility] Hep C Virus Ab 0.0-0.9 [facility] Negative: < 0.8 Indeterminate: 0.8 - 0.9 Positive: > 0.9 The CDC recommends that a positive HCV antibody result be followed up with a HCV Nucleic Acid Amplification test ([id number]). ID Date Data Source [id number] 01/01/2020 07:51:[address] [facility] l TSYSORDER [id number] Name Value Range Interpretation Code Description Data [facility] rce(s) Supporting Document(s) HIV 1/2 AB NON-REACTIVE [facility] HIV AG NON-REACTIVE [facility] ID Date Data Source [id number] 08/25/2019 09:11:00 AM EST [facility] Exam Number: [id number] joint steroid i njectionPRE AND POST-OP DIAGNOSIS:SacroiliitisPROCEDURE:Fluoroscopy guided Left sided sacroiliac intra-articular steroidinjectionANESTHESIA:COMPLICATIONS: NoneDISPOSITION: Stable to home, with entry driver operator.CONSENT: Informed consent was obtained.SURGEON: Case Cristina M.D.Timeout was conducted using the following parameters: correct patient,correct procedure, correct side, and allergiesOPERATIVE REPORT:The patient was taken to the fluoroscopy suite and placed in the proneposition. The gluteal skin was prepped with chlorhexidine and drapedin the usual sterile fashion for spinal injection. The injection sitewas identified using AP fluoroscopy images. The skin was infiltratedwith 5 cc 1% lidocaine and adequate analgesia was obtained prior tothe procedure. A 22-gauge x 3.5 inch spinal needle was placed andadvanced into the postero-inferior aspect of the left SI joint underintermittent fluoroscopic guidance. The target was confirmed with alateral fluoroscopy view. After negative aspiration of CSF, air, andblood, 1 cc of Omnipaque 300 mg was injected. Linear spread of the dyewas seen and there was no intravascular intake of the diet oncontinuous fluor o. AP and lateral radiographs were taken. A 3 mLsolution of 80 mg of Depo- Medrol with 1% lidocaine was injected inincremental fashion. The needle and syringe were removed.A Band-Aid was applied to the puncture site. Patient tolerated theprocedure well.The patient was observed in the postprocedure room for 15 minutes andwas advised on post-procedure instructions. The patient noted markedimprovement of pain at the time of discharge.Written instructions were reviewed and given to patient. Patient wasdischarged with a entry driver operator.Procedure codes (CPT):[id number] will be followed up in the pain cli nicElectronically signed in PS360 by: Russell Cristina MD08/25/2019 9:03 EST Reported By: - CASE CRISTINA MD Signed By: CASE CRISTINA MD Name Value Range Interpretation Code Description Data Ashly rce(s) Supporting Document(s) ID Date Data Source [id number] 08/25/2019 07:59:00 AM EST [facility] Does the pt. have a limb restriction? N Name Value Range Interpretation Code Description Data Ashly rce(s) Supporting Document(s) UHCG NEGATIVE Negative N [facility] ID Date Data Source [id number] 07/29/2019 09:17:[address] [facility] [place] Name Value Range Interpretation Code Description Data Ashly rce(s) Supporting Document(s) ED Provider Note [facility] [place] [id number] lbm [file] [id number]= ID Date Data Source [id number] 07/22/2019 07:15:[address] [facility] [place] XR HIP- UNILAT, 2-3 VIEWS [id number] RE SULTInterpreted by:Ward Sol MDLeft hip, 2-3 views dated 07/22/2019.REASON for study: Pain after fall with history of replacement.FINDINGS: AP and frog-leg lateral views of the left hip were obtained. Patient is status post left total hip arthroplasty. Acetabular and femoral prosthetic components appear well seated and well aligned. The underlying bones are intact. Periarticular soft tissues are only notable for scattered vascular calcifications and surgical clips. The findings are not too similar from that of 03/21/2019.IMPRESSION: Stable left total hip arthroplasty with the no acute traumatic injury identified.This document has been electronically signed by Ward Sol MD on 07/22/2019 7:13 PM Name Value Range Interpretation Code Description Data Ashly rce(s) Supporting Document(s) Procedure Social History Code Duration Value Status Description Data Source(s ) Smoking 07/06/2020 12:00:00 AM EST Never Smoker completed Never S moker eCW1 ([facility]) Smoking 07/06/2020 12:00:00 AM EST Never Smoker completed Never S moker eCW1 ([facility]) Smoking 06/25/2020 12:00:00 AM EST Never Smoker completed Never S moker eCW1 ([facility]) Smoking 06/25/2020 12:00:00 AM EST Never Smoker completed Never S moker eCW1 ([facility]) Smoking 04/19/2020 12:00:00 AM EDT Unknown if ever smoked comp leted Unknown if ever smoked [facility] ([facility]) Smoking 04/16/2020 12:00:00 AM EDT Unknown if ever smoked comp leted Unknown if ever smoked [facility] ([facility]) Smoking 03/26/2020 12:00:00 AM EDT Unknown if ever smoked comp leted Unknown if ever smoked [facility] ([facility]) Smoking 03/05/2020 12:00:00 AM EDT Never Smoker completed Never S moker eCW1 ([facility]) Smoking 03/05/2020 12:00:00 AM EDT Never Smoker completed Never S moker eCW1 ([facility]) Smoking 01/19/2020 12:00:00 AM EDT Unknown if ever smoked comp leted Unknown if ever smoked [facility] ([facility]) Alcohol intake 01/09/2020 12:00:00 AM EDT Current drinker of al cohol (finding) completed Current drinker of alcohol (finding) [facility] Smoking 01/09/2020 12:00:00 AM EDT Never smoker completed Never s [facility] Smoking 12/31/2019 12:00:00 AM EDT Unknown if ever smoked comp leted Unknown if ever smoked [facility] ([facility]) Smoking 12/19/2019 12:00:00 AM EDT Unknown if ever smoked comp leted Unknown if ever smoked [facility] ([facility]) Smoking 11/21/2019 12:00:00 AM EDT Unknown if ever smoked comp leted Unknown if ever smoked [facility] ([facility]) Smoking 11/19/2019 12:00:00 AM EDT Unknown if ever smoked comp leted Unknown if ever smoked [facility] ([facility]) Smoking 10/24/2019 12:00:00 AM EDT Unknown if ever smoked comp leted Unknown if ever smoked [facility] ([facility]) Smoking 10/17/2019 12:00:00 AM EDT Never Smoker completed Never S moker eCW1 ([facility]) Smoking 10/09/2019 12:00:00 AM EDT Unknown if ever smoked comp leted Unknown if ever smoked [facility] ([facility]) Smoking 09/26/2019 12:00:00 AM EST Unknown if ever smoked comp leted Unknown if ever smoked [facility] ([facility]) Smoking 08/29/2019 12:00:00 AM EST Unknown if ever smoked comp leted Unknown if ever smoked [facility] ([facility]) Smoking 08/18/2019 12:00:00 AM EST Unknown if ever smoked comp leted Unknown if ever smoked [facility] ([facility]) Smoking 08/08/2019 12:00:00 AM EST Unknown if ever smoked comp leted Unknown if ever smoked [facility] ([facility]) Alcohol intake 07/22/2019 12:00:00 AM EST Current drinker of al cohol (finding) completed Current drinker of alcohol (finding) [facility] Smoking 07/22/2019 12:00:00 AM EST Never smoker completed Never s [facility] Vital Signs ID Date Data Source UNK Name Value Range Interpretation Code Description Data Source(s) Oxygen saturation in Arterial blood by Pulse oximetry 99 % 99 % eCW1 ([facility]) Respiratory rate 17 /min 17 /min eCW1 ([facility]) Heart rate 72 /min 72 /min eCW1 ([facility]) Body temperature 97.8 [degF] 97.8 [degF] eCW1 ( [facility]) Body mass index (BMI) [Ratio] 43.44 kg/m2 43.44 kg/m2 eCW1 ([facility]) Body weight 241.4 [lb_av] 241.4 [lb_av] eCW1 ([facility]) Body height 62.5 [in_i] 62.5 [in_i] eCW1 ([facility]) Diastolic blood pressure 0 mm[Hg] Normal (applies to non-numeric results) 0 mm[Hg] [facility] ([facility]) Systolic blood pressure 0 mm[Hg] Normal (applies t o non-numeric results) 0 mm[Hg] [facility] ([facility]) Body mass index (BMI) [Ratio] 0.00 kg/m2 No rmal (applies to non-numeric results) 0.00 kg/m2 [facility] ([facility]) Body weight Measured 0.00 lbs Normal (applies to n on-numeric results) 0.00 lbs [facility] ([facility]) Body height 0.00 in Normal (applies to non-numeric resu lts) 0.00 in [facility] ([facility]) Oxygen saturation in Arterial blood by Pulse oximetry 99 % 99 % eCW1 ([facility]) Respiratory rate 18 /min 18 /min eCW1 ([facility]) Heart rate 90 /min 90 /min eCW1 ([facility]) Body mass index (BMI) [Ratio] 39.84 kg/m2 39.84 kg/m2 eCW1 ([facility]) Body weight 221.4 [lb_av] 221.4 [lb_av] eCW1 ([facility]) Body height 62.5 [in_i] 62.5 [in_i] eCW1 ([facility]) Diastolic blood pressure 0 mm[Hg] Normal (applies to non-numeric results) 0 mm[Hg] [facility] ([facility]) Systolic blood pressure 0 mm[Hg] Normal (applies t o non-numeric results) 0 mm[Hg] [facility] ([facility]) Body mass index (BMI) [Ratio] 0.00 kg/m2 No rmal (applies to non-numeric results) 0.00 kg/m2 [facility] ([facility]) Body weight Measured 0.00 lbs Normal (applies to n on-numeric results) 0.00 lbs [facility] ([facility]) Body height 0.00 in Normal (applies to non-numeric resu lts) 0.00 in [facility] ([facility]) Diastolic blood pressure 0 mm[Hg] Normal (applies to non-numeric results) 0 mm[Hg] [facility] ([facility]) Systolic blood pressure 0 mm[Hg] Normal (applies t o non-numeric results) 0 mm[Hg] [facility] Body mass index (BMI) [Ratio] 0.00 kg/m2 No rmal (applies to non-numeric results) 0.00 kg/m2 [facility] ([facility]) Body weight Measured 0.00 lbs Normal (applies to n on-numeric results) 0.00 lbs [facility] ([facility]) Body height 0.00 in Normal (applies to non-numeric resu lts) 0.00 in [facility] ([facility]) Heart rate 124 /min 124 /min W1 ([facility]) Body mass index (BMI) [Ratio] 38.97 kg/m2 38.97 kg/m2 [facility] ([facility]) Body weight Measured 220.0 [lb_av] 220.0 [lb_av ] W1 ([facility]) Body height 63 [in_us] 63 [in_us] eCW1 ([facility]) Diastolic blood pressure 101 mm[Hg] 101 mm[Hg] eCW1 ([facility]) Systolic blood pressure 161 mm[Hg] 161 mm[Hg] e 1 ([facility]) Deprecated Oxygen saturation in Capillary blood by Oximetry 99 % 99 % W1 ([facility]) Respiratory rate 16 /min 16 /min eCW1 ([facility]) Diastolic blood pressure 96 mm[Hg] 96 mm[Hg] eCW1 ([facility]) Systolic blood pressure 143 mm[Hg] 143 mm[Hg] e CW1 ([facility]) Deprecated Oxygen saturation in Capillary blood by Oximetry 97 % 97 % eCW1 ([facility]) Respiratory rate 16 /min 16 /min eCW1 ([facility]) Heart rate 109 /min 109 /min eCW1 ([facility]) Body mass index (BMI) [Ratio] 38.61 kg/m2 38.61 kg/m2 W1 ([facility]) Body weight Measured 218.0 [lb_av] 218.0 [lb_av ] eCW1 ([facility]) Body height 63 [in_us] 63 [in_us] eCW1 ([facility]) Diastolic blood pressure 0 mm[Hg] Normal (applies to non-numeric results) 0 mm[Hg] [facility] ([facility]) Systolic blood pressure 0 mm[Hg] Normal (applies t o non-numeric results) 0 mm[Hg] [facility]) Body mass index (BMI) [Ratio] 0.00 kg/m2 No rmal (applies to non-numeric results) 0.00 kg/m2 [facility] ([facility]) Body weight Measured 0.00 lbs Normal (applies to n on-numeric results) 0.00 lbs [facility] ([facility]) Body height 0.00 in Normal (applies to non-numeric resu lts) 0.00 in [facility]) Diastolic blood pressure 101 mm[Hg] 101 mm[Hg] eCW1 ([facility]) Systolic blood pressure 145 mm[Hg] 145 mm[Hg] e CW1 ([facility]) Deprecated Oxygen saturation in Capillary blood by Oximetry 99 % 99 % W1 ([facility]) Respiratory rate 16 /min 16 /min eCW1 ([facility]) Heart rate 93 /min 93 /min eCW1 ([facility]) Body mass index (BMI) [Ratio] 38.61 kg/m2 38.61 kg/m2 eCW1 ([facility]) Body weight Measured 218.0 [lb_av] 218.0 [lb_av ] eCW1 ([facility]) Body height 63 [in_us] 63 [in_us] eCW1 ([facility]) Deprecated Oxygen saturation in Capillary blood by Oximetry 99 % 99 % W1 ([facility]) Respiratory rate 18 /min 18 /min eCW1 ([facility]) Heart rate 94 /min 94 /min eCW1 ([facility]) Body temperature 98.4 [degF] 98.4 [degF] eCW1 ( [facility]) Body mass index (BMI) [Ratio] 39.41 kg/m2 39.41 kg/m2 eCW1 ([facility]) Body weight Measured 219.0 [lb_av] 219.0 [lb_av ] eCW1 ([facility]) Body height 62.5 [in_us] 62.5 [in_us] eCW1 ([facility]) ID Date Data Source [id number] 05/04/2020 09:13:00 AM EDT [facility] Name Value Range Interpretation Code Description Data Source(s) Weight Measurement Method 8 8 [facility] Weight 3312 3312 [facility] pital Temperature Source 7 7 [facility] Temperature 96.6 96.6 [facility] spital Respiratory Rate 18 18 [facility] Pulse Rate 84 84 [facility] pital Height 63 63 [facility] pital Blood Pressure 149/82 149/82 [facility] Weight Measurement Method 8 8 [facility] Weight 3312 3312 [facility] pital Temperature Source 7 7 [facility] Temperature 96.6 96.6 [facility] spital Respiratory Rate 16 16 [facility] Pulse Rate 84 84 [facility] pital Height 63 63 [facility] pital Blood Pressure 149/82 149/82 [facility] Weight Measurement Method 8 8 [facility] Weight 3312 3312 [facility] pital Temperature Source 7 7 [facility] Temperature 96.6 96.6 [facility] spital Respiratory Rate 16 16 [facility] Pulse Rate 84 84 [facility] pital Height 63 63 [facility] Blood [facility] 149/82 149/82 [facility] ID Date Data Source [id number] 07/29/2019 09:17:[address] [facility] [place] Name Value Range Interpretation Code Description Data Source(s) WEIGHT RECORDED 207 lb 207 lb [facility] Body height Measured 63 in [address] [facility] Patient Treatment Plan of Care Planned Activity Planned Date Details Description Data Source (s) Diclofenac Sodium 1 % 06/25/2020 12:00:00 AM EST eCW1 ([facility]) physical therapy eval and tx - 06/25/2020 12:00:00 AM EST eCW1 ([facility]) Diclofenac Sodium 1 % 06/25/2020 12:00:00 AM EST eCW1 ([facility]) physical therapy eval and tx - 06/25/2020 12:00:00 AM EST eCW1 ([facility]) gabapentin 300 MG Oral Capsule 03/05/2020 12:00:00 AM EDT eCW1 ([facility]) gabapentin 300 MG Oral Capsule 03/05/2020 12:00:00 AM EDT eCW1 ([facility]) Prazosin 1 MG Oral Capsule 10/17/2019 12:00:00 AM EDT eCW1 ([facility]) Fluoxetine 20 MG Oral Capsule [Prozac] 10/17/2019 12:00:00 AM EDT eCW1 ([facility]) Prazosin 1 MG Oral Capsule 10/17/2019 12:00:00 AM EDT eCW1 ([facility]) Fluoxetine 20 MG Oral Capsule [Prozac] 10/17/2019 12:00:00 AM EDT eCW1 ([facility]) physical therapy eval and tx - 10/10/2019 12:00:00 AM EDT eCW1 ([facility]) quetiapine 25 MG Oral Tablet [Seroquel] 10/10/2019 12:00:00 AM EDT eCW1 ([facility]) Acetaminophen 325 MG / tramadol hydrochloride 37.5 MG Oral Tablet [Ultracet] 09/25/2019 12:00:00 AM EST eCW1 ([facility]) Acetaminophen 325 MG / Oxycodone Hydrochloride 5 MG Or al Tablet 09/19/2019 12:00:00 AM EST eCW1 ([facility]) Acetaminophen 325 MG / Oxycodone Hydrochloride 5 MG Or al Tablet 09/19/2019 12:00:00 AM EST eCW1 ([facility]) Acetaminophen 325 MG / Oxycodone Hydrochloride 5 MG Or al Tablet 09/19/2019 12:00:00 AM EST eCW1 ([facility]) Acetaminophen 325 MG / Oxycodone Hydrochloride 5 MG Or al Tablet 08/22/2019 12:00:00 AM EST eCW1 ([facility]) Cyclobenzaprine hydrochloride 5 MG Oral Tablet 08/12/2019 12:00:00 AM EST eCW1 ([facility]) Acetaminophen 325 MG / Oxycodone Hydrochloride 7.5 MG Oral Tablet 07/24/2019 12:00:00 AM EST eCW1 ([facility]) Oxycodone Hydrochloride 5 MG Oral Tablet 07/24/2019 12:00:00 AM EST eCW1 ([facility]) benzonatate 100 MG Oral Capsule [Titi Lino] 07/21/2019 12: 00:00 AM EST eCW1 ([facility]) Amoxicillin 875 MG / Clavulanate 125 MG Oral Tablet 07/21/20 12:00:00 AM EST eCW1 ([facility]) Oxycodone Hydrochloride 10 MG Oral Tablet 06/23/2019 12:00:00 AM ES T eCW1 ([facility]) Oxycodone Hydrochloride 10 MG Oral Tablet 06/23/2019 12:00:00 AM ES T eCW1 ([facility]) Oxycodone Hydrochloride 5 MG Oral Tablet 11/08/2018 12:00:00 AM [facility] Aspirin 81 MG Delayed Release Oral Tablet 10/26/2018 12:00:00 AM [facility] 24 HR venlafaxine 150 MG Extended Release Oral Tablet [facility]
[2020-08-08] MEDS ORDERED: PRED20TA PO (13:08)
--- OUTSIDE RECORDS SUMMARY | 2020-08-08 13:15 | CCD ---
Author Author [facility] Organization [facility] Address Unknown Phone Unavailable Care Team Providers Care Coppersmith Helper Name Role Phone NAIDU SR, JOSE ALFREDO [...] ZAPIEN MD Unavailable Unavailable Ting, Regmimi Bootheyce ENVIRONMENTAL LEAD-C Unavailable Unavailabl e Ting, Reginah Gabriella BootheCaitie ENVIRONMENTAL LEAD-C Unavailable Unavailabl e Ting, Reginah Gabriella Caitie ENVIRONMENTAL LEAD-C Unavailable Unavailabl e Ting, Reginah W Caitie ENVIRONMENTAL LEAD-C Unavailable Unavailabl e Ting, Reginah W Caitie ENVIRONMENTAL LEAD-C Unavailable Unavailabl e Ting, Reginah W Caitie ENVIRONMENTAL LEAD-C Unavailable Unavailabl e Ting, Reginah W Caitie ENVIRONMENTAL LEAD-C Unavailable Unavailabl e Ting, Reginah Gabriella Caitie ENVIRONMENTAL LEAD-C Unavailable Unavailabl e Ting, Reginah W Caitie ENVIRONMENTAL LEAD-C Unavailable Unavailabl e Ting, Reginah W Caitie ENVIRONMENTAL LEAD-C Unavailable Unavailabl e Ting, Reginah W Caitie ENVIRONMENTAL LEAD-C Unavailable Unavailabl e Ting, Edda Blood ENVIRONMENTAL LEAD-C Unavailable Unavailabl e Ting, Edda Blood ENVIRONMENTAL LEAD-C Unavailable Unavailabl e Ting, Edda Blood ENVIRONMENTAL LEAD-C Unavailable Unavailabl e Ting, Edda Blood ENVIRONMENTAL LEAD-C Unavailable Unavailabl e Ting, Edda Blood ENVIRONMENTAL LEAD-C Unavailable Unavailabl e Ting, Edda Blood ENVIRONMENTAL LEAD-C Unavailable Unavailabl e Ting, Edda Blood ENVIRONMENTAL LEAD-C Unavailable Unavailabl e Ting, Edda Blood ENVIRONMENTAL LEAD-C Unavailable Unavailabl e Ting, Edda Blood ENVIRONMENTAL LEAD-C Unavailable Unavailabl e Ting, Edda Blood ENVIRONMENTAL LEAD-C Unavailable Unavailabl e Ting, Edda Blood ENVIRONMENTAL LEAD-C Unavailable Unavailabl e Ting, Edda Blood ENVIRONMENTAL LEAD-C Unavailable Unavailabl e Ting, Edda Blood ENVIRONMENTAL LEAD-C Unavailable Unavailabl e Ting, Edda Blood ENVIRONMENTAL LEAD-C Unavailable Unavailabl e Ting, Edda Blood ENVIRONMENTAL LEAD-C Unavailable Unavailabl e Ting, Edda Blood ENVIRONMENTAL LEAD-C Unavailable Unavailabl e Ting, Edda Blood ENVIRONMENTAL LEAD-C Unavailable Unavailabl e Ting, Edda Blood ENVIRONMENTAL LEAD-C Unavailable Unavailabl e Ting, Edda Blood ENVIRONMENTAL LEAD-C Unavailable Unavailabl e Ting, Edda Blood ENVIRONMENTAL LEAD-C Unavailable Unavailabl e Ting, Edda Bootheyce ENVIRONMENTAL LEAD-C Unavailable Unavailabl e Fish, Bright Malhotra MD [...] Roscoe ZIMMER Unavailable Unavailable Fish, B Roscoe ZIMMRE Unavailable Unavailable Fish, B Roscoe ZIMMER Unavailable [...] SR, JOSE ALFREDO ZAPIEN MD Unavailable Unavailable NADIU SR, JOSE ALFREDO ZAPIEN MD Unavailable Unavailable [...] Unavailable Unavailable Sony, C David Unavailable Unavailable Oaks, C David Unavailable Unavailable Oaks, C David Unavailable Unavailable Oaks, C David Unavailable Unavailable Sony, C David Unavailable Unavailable Sony, C David Unavailable Unavailable Oaks, C David Unavailable Unavailable HOUSTON KAT MD [...] Unavailable NORTH, HOUSTON MD Unavailable Unavailable NORTH, HOUSOTN MD Unavailable Unavailable NORTH, HOUSTON MD Unavailable [...] Unavailable Unavailable DELGADORomel FUNK MD Unavailable Unavailable DEGLADORomel FUNK MD Unavailable Unavailable DELGADORomel FUNK MD [...] Nick PA Unavailable Unavailable OAKLEY, R NAVI LEARNING CENTER INSTRUCTOR Unavailable Unavailable OAKLEY, R NAVI LEARNING CENTER INSTRUCTOR Unavailable Unavailable OAKLEY, R NAVI LEARNING CENTER INSTRUCTOR Unavailable Unavailable OAKLEY, R NAVI LEARNING CENTER INSTRUCTOR Unavailable Unavailable OAKLEY, R NAVI LEARNING CENTER INSTRUCTOR Unavailable Unavailable OAKLEY, R NAVI LEARNING CENTER INSTRUCTOR Unavailable Unavailable OAKLEY, R NAVI LEARNING CENTER INSTRUCTOR Unavailable Unavailable OAKLEY, R NAVI LEARNING CENTER INSTRUCTOR Unavailable Unavailable OAKLEY, R NAVI LEARNING CENTER INSTRUCTOR Unavailable Unavailable OAKLEY, R NAVI LEARNING CENTER INSTRUCTOR Unavailable Unavailable OAKLEY, R NAVI LEARNING CENTER INSTRUCTOR Unavailable Unavailable OAKLEY, R NAVI LEARNING CENTER INSTRUCTOR Unavailable Unavailable OAKLEY, R NAVI LEARNING CENTER INSTRUCTOR Unavailable Unavailable OAKLEY, R NAVI LEARNING CENTER INSTRUCTOR Unavailable Unavailable OAKLEY, R NAVI LEARNING CENTER INSTRUCTOR Unavailable Unavailable OAKLEY, R NAVI LEARNING CENTER INSTRUCTOR Unavailable Unavailable OAKLEY, R NAVI LEARNING CENTER INSTRUCTOR Unavailable Unavailable OAKLEY, R NAVI LEARNING CENTER INSTRUCTOR Unavailable Unavailable OAKLEY, R NAVI LEARNING CENTER INSTRUCTOR Unavailable Unavailable OAKLEY, R NAVI LEARNING CENTER INSTRUCTOR Unavailable Unavailable OAKLEY, R NAVI LEARNING CENTER INSTRUCTOR Unavailable Unavailable OAKLEY, R NAVI LEARNING CENTER INSTRUCTOR Unavailable Unavailable OAKLEY, R NAVI LEARNING CENTER INSTRUCTOR Unavailable Unavailable OAKLEY, R NAVI LEARNING CENTER INSTRUCTOR Unavailable Unavailable OAKLEY, R NAVI LEARNING CENTER INSTRUCTOR Unavailable Unavailable OAKLEY, R NAVI LEARNING CENTER INSTRUCTOR Unavailable Unavailable OAKLEY, R NAVI LEARNING CENTER INSTRUCTOR Unavailable Unavailable OAKLEY, R NAVI LEARNING CENTER INSTRUCTOR Unavailable Unavailable OAKLEY, R NAVI LEARNING CENTER INSTRUCTOR Unavailable Unavailable OAKLEY, R NAVI LEARNING CENTER INSTRUCTOR Unavailable Unavailable OAKLEY, R NAVI LEARNING CENTER INSTRUCTOR Unavailable Unavailable OAKLEY, R NAVI LEARNING CENTER INSTRUCTOR Unavailable Unavailable OAKLEY, R NAVI LEARNING CENTER INSTRUCTOR Unavailable Unavailable OAKLEY, R NAVI LEARNING CENTER INSTRUCTOR Unavailable Unavailable OAKLEY, R NAVI LEARNING CENTER INSTRUCTOR Unavailable Unavailable OAKLEY, R NAVI LEARNING CENTER INSTRUCTOR Unavailable Unavailable OAKLEY, R NAVI LEARNING CENTER INSTRUCTOR Unavailable Unavailable OAKLEY, R NAVI LEARNING CENTER INSTRUCTOR Unavailable Unavailable OAKLEY, R NAVI LEARNING CENTER INSTRUCTOR Unavailable Unavailable OAKLEY, R NAVI LEARNING CENTER INSTRUCTOR Unavailable Unavailable OAKLEY, R NAVI LEARNING CENTER INSTRUCTOR Unavailable Unavailable Klawitter, Emily Grossman MD Unavailable [...] Unavailable Brie Rios Unavailable Edilberto, A Sandra ENVIRONMENTAL LEAD Unavailable Unavailable Edilberto, A Sandra ENVIRONMENTAL LEAD Unavailable Unavailable Edilberto, A Sandra ENVIRONMENTAL LEAD Unavailable Unavailable Edilberto, A Sandra ENVIRONMENTAL LEAD Unavailable Unavailable Edilberto, A Sandra ENVIRONMENTAL LEAD Unavailable Unavailable Edilberto, A Sandra ENVIRONMENTAL LEAD Unavailable Unavailable Edilberto, A Sandra ENVIRONMENTAL LEAD Unavailable Unavailable Edilberto, A Sandra ENVIRONMENTAL LEAD Unavailable Unavailable Edilberto, A Sandra ENVIRONMENTAL LEAD Unavailable Unavailable Edilberto, A Sandra ENVIRONMENTAL LEAD Unavailable Unavailable Edilberto, A Sandra ENVIRONMENTAL LEAD Unavailable Unavailable Edilberto, A Sandra ENVIRONMENTAL LEAD Unavailable Unavailable Edilberto, A Sandra ENVIRONMENTAL LEAD Unavailable Unavailable Edilberto, A Sandra ENVIRONMENTAL LEAD Unavailable Unavailable Edilberto, A Sandra ENVIRONMENTAL LEAD Unavailable Unavailable Edilberto, A Sandra ENVIRONMENTAL LEAD Unavailable Unavailable Edilberto, A Sandra ENVIRONMENTAL LEAD Unavailable Unavailable Edilberto, A Sandra ENVIRONMENTAL LEAD Unavailable Unavailable Edilberto, A Sandra ENVIRONMENTAL LEAD Unavailable Unavailable Edilberto, A Sandra ENVIRONMENTAL LEAD Unavailable Unavailable Edilberto, A Sandra ENVIRONMENTAL LEAD Unavailable Unavailable Edilberto, A Sandra ENVIRONMENTAL LEAD Unavailable Unavailable Edilberto, A Sandra ENVIRONMENTAL LEAD Unavailable Unavailable Edilberto, A Sandra ENVIRONMENTAL LEAD Unavailable Unavailable Edilberto, A Sandra ENVIRONMENTAL LEAD Unavailable Unavailable Edilberto, A Sandra ENVIRONMENTAL LEAD Unavailable Unavailable Edilberto, A Sandra ENVIRONMENTAL LEAD Unavailable Unavailable Edilberto, A Sandra ENVIRONMENTAL LEAD Unavailable Unavailable Edilberto, A Sandra ENVIRONMENTAL LEAD Unavailable Unavailable Edilberto, A Sandra ENVIRONMENTAL LEAD Unavailable Unavailable Edilberto, A Sandra ENVIRONMENTAL LEAD Unavailable Unavailable Edilberto, A Sandra ENVIRONMENTAL LEAD Unavailable Unavailable Edilberto, A Sandra ENVIRONMENTAL LEAD Unavailable Unavailable Edilberto, A Sandra ENVIRONMENTAL LEAD Unavailable Unavailable Edilberto, A Sandra ENVIRONMENTAL LEAD Unavailable Unavailable Edilberto, A Sandra ENVIRONMENTAL LEAD Unavailable Unavailable Edilberto, A Sandra ENVIRONMENTAL LEAD Unavailable Unavailable Edilberto, A Sandra ENVIRONMENTAL LEAD Unavailable Unavailable Edilberto, A Sandra ENVIRONMENTAL LEAD Unavailable Unavailable Edilberto, A Sandra ENVIRONMENTAL LEAD Unavailable Unavailable Edilberto, A Sandra ENVIRONMENTAL LEAD Unavailable Unavailable Edilberto, A Sandra ENVIRONMENTAL LEAD Unavailable Unavailable Edilberto, A Sandra ENVIRONMENTAL LEAD Unavailable Unavailable Edilberto, A Sandra ENVIRONMENTAL LEAD Unavailable Unavailable GUCCI CANELA MD Unavailable Unavailable [...] A DESI MD Unavailable Unavailable GROVES, A DSEI MD Unavailable Unavailable GROVES, A DESI MD [...] A DESI MD Unavailable Unavailable GROVES, A DEIS MD Unavailable Unavailable GROVES, A DESI MD [...] Unavailable Unavailable Dorothy Barger MD Unavailable Unavailable Dortohy Barger MD Unavailable Unavailable Dorothy Barger MD [...] Dorothy Barger MD Unavailable Unavailable Rayo Jaime PMH-LEARNING CENTER INSTRUCTOR Unavailable Unavailable Rayo Jaime PMH-LEARNING CENTER INSTRUCTOR Unavailable Unavailable Rayo Jaime PMH-LEARNING CENTER INSTRUCTOR Unavailable Unavailable Rayo Jaime PMH-LEARNING CENTER INSTRUCTOR Unavailable Unavailable Rayo Jaime PMH-LEARNING CENTER INSTRUCTOR Unavailable Unavailable Rayo Jaime PMH-LEARNING CENTER INSTRUCTOR Unavailable Unavailable Harris Cristina MD, M.D. Unavailable [phone] ThiHarris lopez MD, M.D. Unavailable [phone] Harris Cristina MD, M.D. Unavailable [phone] Harris Cristina MD, M.D. Unavailable [phone] Harris Cristina MD, M.D. Unavailable [phone] Harris Cristina MD, M.D. Unavailable [phone] Harris Cristina MD, M.D. Unavailable [phone] Harris Cristina MD, M.D. Unavailable [phone] Harris Cristina MD, M.D. Unavailable [phone] Harris Cristina MD, M.D. Unavailable [phone] Laura, J Eduard PA-C Unavailable Unavailable Laura, [...] is protected by Article 27-F of the [facility] Public Health law. If you continue you may have access to information: Regarding HIV / AIDS; Provided by facilities licensed or operated by the [facility] Office of Mental Health; or Provided by the [facility] Office for People With Developmental Disabilities. If such information is present, then the following [facility] mandated warning applies: This information has been [...] law may result in a fine or fpc sentence or both. A general authorization for the release of medical or other information is NOT sufficient authorization for further disc losure. Allergies and Adverse Reactions Type Description Substance Reaction Status Data Source(s ) Drug allergy Drug allergy venom-honey bee (bee venom (bhupendra y bee)) Anaphylactic Shock [facility] Drug allergy Drug allergy ibuprofen [facility] Propensity to adverse reactions to substance nkda 24 HR Bupropion Hydrochloride 150 MG Extended Release Oral Tablet Active [facility] ([facility]) Drug allergy Ibuprofen Ibuprofen nausea Active eCW1 ([facility]) Drug allergy No Known Drug Allergies No Known Drug Allergies [facility] Drug allergy No Known Allergies No Known Allergies [facility] Family History Family Member Name Family Member Gender Family Member Status Date o f Status Description Data Source(s) Unknown Unknown Problem [facility]ENT ([facility], ) Encounters Encounter Providers Location Date Indications Data Source(s ) Outpatient Attender: DESI GROVES MD 01/03/2021 12:00:00 AM EDT [facility] Outpatient [facility] 08/02/2020 12:00:00 AM EST eCW1 ([facility]) Outpatient [facility] 07/05/2020 12:00:00 AM EST eCW1 ([facility]) Emergency Attender: Eduard ASKEW-CConsultant: CURRY BARAJAS SR 07/02/2020 01:57:00 PM EST - 07/02/2020 03:20:00 PM EST [facility] Patient discharged. Outpatient [facility] 07/02/2020 12:00:00 AM EST eCW1 ([facility]) Outpatient Attender: Caitie SUAREZ-Ketty 06/25/2020 11:00:0 0 AM EST [facility] Outpatient [facility] 06/25/2020 12:00:00 AM EST eCW1 ([facility]) Emergency Attender: Desi Louis RPA-CReferrer: CURRY REINOSO ACE, SR 06/19/2020 03:46:00 PM EST - 06/19/2020 04:54:00 PM EST [facility] Patient discharged. Outpatient Attender: Roxy Jaime [facility]-NPReferrer : CURRY NAIDU SR EMERGENCY ROOM-LABOTHPROV 05/04/2020 08:45:00 AM EDT - 05/04/2020 08:45:00 AM EDT [facility] Outpatient CPSCAORT-LABEJN 05/03/2020 09:51:00 AM EDT [facility] Outpatient [facility] 05/03/2020 12:00:00 AM EDT eCW1 ([facility]) Emergency Attender: JOSE ALFREDO ASKEW ED-ED 05/02 01:35:00 PM EDT - 05/02/2020 03:48:00 PM EDT LOWER LEFT BACK PAIN DIZZINESS NAUSEA [facility] LOWER LEFT BACK PAIN DIZZINESS NAUSEA Patient discharged. Emergency Attender: DAVID CHOE JRReferrer: CURRY REINOSO ACE, SR 05/02/2020 12:14:00 PM EDT - 05/02/2020 12:23:00 PM EDT [facility] Patient discharged. Outpatient Attender: Roxy FREY-[facility]HEL [facility] 04/19/2020 03:30:00 AM EDT - 04/19/2020 03:30:00 AM EDT [facility] ([facility]) Attender: Roxy VILLALTA-CHEL 04/19/2020 12: 00:00 AM EDT [facility] ([facility]) Extended Individual Psychotherapy - 45 min [facility] 04/16/2020 10:00:00 AM EDT - 04/16/2020 10:00:00 AM EDT [facility] ([facility]) Attender: Fabiola Conway 04/16/2020 12:00:00 AM EDT [facility] ([facility]) Outpatient Attender: NAVI OAKLEY NPReferrer: Nick ASKEW 04/09/2020 12:00:00 AM [facility] Extended Individual Psychotherapy - 45 min [facility] 03/26/2020 09:00:00 AM EDT - 03/26/2020 09:00:00 AM EDT [facility] ([facility]) Attender: Fabiola Conway 03/26/2020 12:00:00 AM EDT [facility] ([facility]) Outpatient Attender: CURRY NAIDU SRReferrer: CURRY Siegel SR 03/16/2020 03:00:00 PM EDT - 03/16/2020 03:00:00 PM EDT [facility]ital Outpatient Attender: CURRY NAIDU SR 03/05/2020 09:11:00 AM EDT [facility] Outpatient [facility] 03/05/2020 12:00:00 AM EDT eCW1 ([facility]) Outpatient Attender: NAVI OAKLEY NPReferrer: Nick ASKEW 02/20/2020 12:00:00 AM [facility] Outpatient Attender: NAVI OAKLEY NPReferrer: Nick ASKEW 02/06/2020 12:00:00 AM [facility] Outpatient Attender: Roxy Jaime [facility] 01/19/2020 09:30:00 AM EDT - 01/19/2020 09:30:00 AM EDT [facility] ([facility]) Attender: Roxy VILLALTA-LEARNING CENTER INSTRUCTOR 01/19/2020 12: 00:00 AM EDT [facility] ([facility]) Outpatient Attender: DESI GROVES MD 01/19/2020 12:00:00 AM EDT [facility] Outpatient Referrer: Nick ASKEW 01/09/2020 12: 00:00 AM EDT Presence of left artificial hip joint [facility] Presence of left artificial hip joint Outpatient Attender: Nick ASKEW [id number] 01/09/2020 12: 00:00 AM EDT Presence of left artificial hip joint [facility] Presence of left artificial hip joint Emergency Attender: NATACHA NATARAJAN MDConsultant: CURRY LANGE SR 01/08/2020 10:11:00 PM EDT - 01/08/2020 11:51:00 PM EDT [facility] Patient discharged. Outpatient [facility] 01/02/2020 12:00:00 AM EDT eCW1 ([facility]) Emergency Attender: MURIEL AGARWAL PAReferrer : CURRY NAIDU EMERGENCY ROOM-ER 01/01/2020 08:10:00 PM EDT - 01/01/2020 08:50:00 PM EDT [facility] Patient discharged. TEMPMHCTelemed 30" Psychotherapy Attender: Alyce costello [facility] 12/31/2019 08:00:00 AM EDT - 12/31/2019 08:00:00 AM EDT [facility] ([facility]) Attender: Alyce Ayala 12/31/2019 12:00:0 0 AM EDT [facility] ([facility]) Outpatient Attender: Jorge Barger MD FP 12/30/2019 07:51:39 PM EDT [facility] C ENTER 12/24/2019 12:00:00 AM EDT eCW1 ([facility]) Outpatient Attender: Roxy Jaime [facility] 12/19/2019 10:00:00 AM EDT - 12/19/2019 10:00:00 AM EDT [facility] ([facility]) Attender: Roxy FREY-LEARNING CENTER INSTRUCTOR 12/19/2019 12: 00:00 AM EDT [facility] ([facility]) TEMPMHCTelemed 30" Psychotherapy Attender: Alyce Champagne [facility] 11/21/2019 09:00:00 AM EDT - 11/21/2019 09:00:00 AM EDT [facility] ([facility]) Attender: Alyce Ayala 11/21/2019 12:00:0 0 AM EDT [facility] ([facility]) Outpatient Attender: DESI GROVES MD 11/21/2019 12:00:00 AM EDT [facility] Outpatient Attender: Roxy FREYBRENDAN [facility] Chance 11/19/2019 03:45:00 AM EDT - 11/19/2019 03:45:00 AM EDT [facility] ([facility]) Attender: Roxy FREY-LEARNING CENTER INSTRUCTOR 11/19/2019 12: 00:00 AM EDT [facility] ([facility]) [facility] ENTER 11/03/2019 12:00:00 AM EDT eCW1 ([facility]) Outpatient [facility] 10/29/2019 12:00:00 AM EDT eCW1 ([facility]) [id number]"Psychotherapy Attender: Alyce Ayala [facility] 10/24/2019 09:00:00 AM EDT - 10/24/2019 09:00:00 AM EDT [facility] ([facility]) Attender: Alyce Ayala 10/24/2019 12:00:0 0 AM EDT [facility] ([facility]) [facility] [address] [place] [address] 10/23/2019 12:00:00 AM EDT [facility] Outpatient Attender: CURRY NAIDU SR 10/17/2019 10:00:00 AM EDT [facility] C ENTER 10/17/2019 12:00:00 AM EDT eCW1 ([facility]) [facility] EN[facility] 10/16/2019 12:00:00 AM EDT eCW1 ([facility]) [facility] 10/13/2019 12:00:00 AM EDT eCW1 ([facility]) [facility] 10/10/2019 12:00:00 AM EDT eCW1 ([facility]) Extended Individual Psychotherapy - 45 min Attender: Annba Ayala [facility] 10/09/2019 11:30:00 AM EDT - 10/09/2019 11:30:00 AM EDT [facility] ([facility]) Attender: Alyce Ayala 10/09/2019 12:00:0 0 AM EDT [facility] ([facility]) [facility] [address] [place] [address] 10/02/2019 12:00:00 AM EDT eCW1 ([facility]) Extended Individual Psychotherapy - 45 min Attender: Ann marcelino Ayala [facility] 09/26/2019 10:00:00 AM EST - 09/26/2019 10:00:00 AM EST [facility] ([facility]) Attender: Alyceguy Ayala 09/26/2019 12:00:0 0 AM EST [facility] ([facility]) [facility] [address] [place] [address] 09/25/2019 12:00:00 AM EST eCW1 ([facility]) [facility] [address] [place] [address] 09/25/2019 12:00:00 AM EST eCW1 ([facility]) Outpatient Referrer: Roscoe Singleton MD 09/23/2019 03:02:00 PM EST [facility] EN[facility] 09/19/2019 12:00:00 AM EST eCW1 ([facility]) [facility] [address] [place] [address] 09/17/2019 12:00:00 AM EST eCW1 ([facility]) Outpatient Attender: Jorge HERNANDEZ 09/12/2019 08:01:26 PM EST [facility] [address] [place] [id number] 09/12/2019 12:00:00 AM EST eCW1 ([facility]) Extended Individual Psychotherapy - 45 min Attender: Ann Ayala [facility] 08/29/2019 10:00:00 AM EST - 08/29/2019 10:00:00 AM EST [facility] ([facility]) Attender: Alyce Ayala 08/29/2019 12:00:0 0 AM EST [facility] ([facility]) Outpatient Attender: Case will MDAttender: CASE CRISTINA M.D. ER-ASUR 08/25/2019 07:41:00 AM EST [facility] cancelled. Disregard status an d admitted date. [facility] OP [address] [facility] [address] [place] [address] 08/25/2019 12:00:00 AM EST eCW1 ([facility]) [facility] 08/22/2019 12:00:00 AM EST eCW1 ([facility]) Outpatient Attender: David Cardoza [facility] 0 08/18/2019 02:30:00 AM EST - 08/18/2019 02:30:00 AM EST [facility] ([facility]) Attender: David Cardoza 08/18/2019 12:00:00 AM EST [facility] ([facility]) Brief Individual Psychotherapy - 30 min Attender: Brie salas [facility] 08/08/2019 02:30:00 AM EST - 08/08/2019 02:30:00 AM EST [facility] ([facility]) Attender: Brie Rios 08/08/2019 12:00:00 AM EST [facility] ([facility]) [facility] [address] [place] [address] 08/06/2019 12:00:00 AM EST eCW1 ([facility]) [facility] 07/24/2019 12:00:00 AM EST eCW1 ([facility]) [facility] 07/24/2019 12:00:00 AM EST eCW1 ([facility]) Emergency Attender: [facility]y Sherman [facility] 05:16:00 PM EST - 07/22/2019 09:12:00 PM EST Pain in left leg [facility] Pain in left leg Patient discharged. Outpatient Attender: CURRY NAIDU SR 07/21/2019 03:00:00 PM EST [facility] C ENTER 07/21/2019 12:00:00 AM EST eCW1 ([facility]) [facility] 07/18/2019 12:00:00 AM EST eCW1 ([facility]) [facility] 07/14/2019 12:00:00 AM EST eCW1 ([facility]) [facility] 06/20/2019 12:00:00 AM EST eCW1 ([facility]) [facility] 06/17/2019 12:00:00 AM EST eCW1 ([facility]) Outpatient Attender: Jorge HERNANDEZ 06/13/2019 08:04:01 PM EST [facility] C ENTER 06/11/2019 12:00:00 AM EST eCW1 ([facility]) Outpatient Attender: CURRY NAIDU SR 05/27/2019 07:48:00 AM EST [facility] Outpatient Attender: ANA LAURA CONCEPCION MD 05/26/2019 04:17:00 PM EST [facility] Emergency Attender: MURIEL BAKEReferrer: CURRY NAIDU SR 03/28/2019 09:47:00 PM EDT - 03/28/2019 10:41:00 PM [facility] Patient discharged. Outpatient Attender: MURIEL AGARWAL PAConsultant: [facility] 02/27/2019 11:06:00 PM EDT [facility] Outpatient Attender: GUCCI CANELA MDConsultant: [facility] 02/21/2019 02:55:00 AM EDT [facility] Preadmit Attender: HOUSTON KAT MD 10/11/2018 10:24:0 0 AM EDT [facility] Outpatient Attender: CURRY NAIDU SRReferrer: CURRY Siegel SR 09/23/2018 09:00:00 AM EST - 09/23/2018 09:00:00 AM [facility] Emergency Attender: MURIEL AGARWAL PAReferrer: CURRY NAIDU SR 09/16/2018 08:02:00 PM EST - 09/16/2018 09:02:00 PM [facility] Outpatient Attender: Sandra Casanova FNPReferrer: CURRY BARAJAS SR 03/14/2018 09:00:00 AM [facility] Emergency Attender: MURIEL ASKEW EMERGENCY ROOM- ER 11/12/2016 08:09:00 PM EDT - 11/12/2016 08:55:00 PM [facility] Functional Status Medications Medication Brand Name Start [...] physical therapy eval and tx - eCW1 ([facility]) Diclofenac Sodium 1 % UNK 06/25/2020 12:00:00 AM EST active Diclofenac Sodium 1 % eCW1 ([facility]) Diclofenac Sodium 1 % UNK 06/25/2020 12:00:00 AM EST active Diclofenac Sodium 1 % eCW1 ([facility]) physical therapy eval and tx - UNK 06/25/2020 12:00:00 AM EST active physical therapy eval and tx - eCW1 ([facility]) physical therapy eval and tx - UNK 06/25/2020 12:00:00 AM EST active physical therapy eval and tx - eCW1 ([facility]) Diclofenac Sodium 1 % UNK 06/25/2020 12:00:00 AM EST active Diclofenac Sodium 1 % eCW1 ([facility]) physical therapy eval and tx - UNK 06/25/2020 12:00:00 AM EST active physical therapy eval and tx - eCW1 ([facility]) Diclofenac Sodium 1 % UNK 06/25/2020 12:00:00 AM EST active Diclofenac Sodium 1 % eCW1 ([facility]) 300 mg 06/19/2020 12:00:00 AM EST [...] AM EDT 10 mg by mouth completed [id number] buspirone by mouth [id number] 04/19/2020 twice a day 10 mg tablet 43357 [id number] [facility] [id number] [facility]) 7.5 mg 04/09/2020 12:00:00 AM EDT tablet [...] TWICE A DAY SOLD: 03/25/2020 [facility] Brule Carbonate 300 MG Oral Capsule lithium carbonate 12:00:00 AM EDT 300 mg by mouth completed [id number] lithium car bonate by mouth [id number] 03/22/2020 at bedtime 300 mg capsule 20382 [id number] Roxyanahi Jaime [id number] [facility] ([facility]) Brule Carbonate 300 MG Oral Capsule lithium carbonate 12:00:00 AM EDT 300 mg by mouth completed [id number] lithium car bonate by mouth [id number] 03/22/2020 at bedtime 300 mg capsule 32458 [id number] Roxyanahi Jaime [id number] [facility] ([facility]) buspirone hydrochloride 7.5 MG Oral Tablet buspirone 03/22 12:00:00 AM EDT 7.5 mg by mouth completed 564856 buspirone by mouth C38 288 03/22/2020 04/19/2020 twice a day 7.5 mg tablet 85222 864711 [id number] Rayo Jaime [id number] [facility] ([facility]) quetiapine 300 MG Oral Tablet QUETIAPINE FUMARATE 03/19/2020 12: 00:00 AM EDT tablet 7 TAKE ONE TABLET BY MOUTH AT BEDT LULI TAKE ONE TABLET BY MOUTH AT BEDTIME SOLD: 03/19/2020 [facility] quetiapine 300 MG Oral Tablet quetiapine 03/18/2020 12:00:00 AM EDT 300 mg by mouth completed 775590 quetiapine by mouth P07844 201905/03/2020 at bedtime 7 300 mg tablet 32394 346586 [id number] Talia Jaime [id number] [facility] ([facility]) quetiapine 300 MG Oral Tablet quetiapine 03/18/2020 12:00:00 AM EDT 300 mg by mouth completed 437215 quetiapine by mouth [id number] 2019 at bedtime 7 300 mg tablet 82012 949892 [id number] Roxy Jaime [id number] [facility] ([facility] quetiapine 300 MG Oral Tablet QUETIAPINE FUMARATE 03/12/2020 12: 00:00 AM EDT tablet 7 TAKE ONE TABLET BY MOUTH AT BEDT LULI TAKE ONE TABLET BY MOUTH AT BEDTIME SOLD: 03/12/2020 [facility] gabapentin 300 MG Oral Capsule Gabapentin 300 MG Gabapentin 300 MG 03/05/2020 12:00:00 AM EDT 1.0 {capsule} active G abapentin 300 MG eCW1 ([facility]) 300 mg 03/05/2020 12:00:00 AM EDT capsule [...] {capsule} active G abapentin 300 MG eCW1 ([facility]) quetiapine 300 MG Oral Tablet QUETIAPINE FUMARATE [...] DAILY AT BEDTIME SOLD: 12/23/2019 [facility] Brule Carbonate 300 MG Oral Capsule lithium carbonate 12:00:00 AM EDT 300 mg by mouth completed [id number] lithium car bonate by mouth [id number] 12/23/2019 01/22/2020 at bedtime 30 300 mg capsule 89302 1 40956 [id number] Roxy Jaime [id number] [facility]) quetiapine 300 MG Oral Tablet QUETIAPINE [...] AM EDT 300 mg by mouth completed 927460 quetiapine by mouth K30829 2019 at bedtime 300 mg tablet 20638 208964 [id number] Roxy Jaime [id number] [facility] ([facility]) Prazosin 1 MG Oral Capsule prazosin 11/19/2019 12:00:00 AM EDT 1 mg by mouth completed 556764 prazosin by mouth [id number] 11/19/2019 at bedtime 1 mg capsule 76714 464722 [id number] Roxy Jaime [id number] [facility] ([facility]) Prazosin 1 MG Oral Capsule prazosin 11/19/2019 12:00:00 AM EDT 1 mg by mouth completed 325692 prazosin by mouth [id number] 11/19/2019 at bedtime 1 mg capsule 82046 664719 [id number] Roxy Jaime [id number] [facility] ([facility]) Fluoxetine 20 MG Oral Capsule [Prozac] Prozac 20 MG Prozac 2 0 MG 10/17/2019 12:00:00 AM EDT 1.0 {capsule} active P rozac 20 MG eCW1 ([facility]) Prazosin 1 MG Oral Capsule Prazosin HCl 1 MG Prazosin HCl 1 MG 10/17/2019 12:00:00 AM EDT 1.0 {capsule_at_bedtime} active Prazosin HCl 1 MG eCW1 ([facility]) Prazosin 1 MG Oral Capsule Prazosin HCl 1 MG Prazosin HCl 1 MG 10/17/2019 12:00:00 AM EDT active 1 capsul e at bedtime eCW1 ([facility]) Fluoxetine 20 MG Oral Capsule [Prozac] Prozac 20 MG Prozac 2 0 MG 10/17/2019 12:00:00 AM EDT active 1 capsul e eCW1 ([facility]) 10 mg 10/14/2019 12:00:00 AM EDT tablet [...] AM EDT 40 mg by mouth completed [id number] fluoxetine by mouth [id number] 201912/12/2019 once a day 30 40 mg capsule 41112 546669 [id number] David Cardoza [id number] [facility] ([facility]) Hydroxyzine Hydrochloride 10 MG Oral Tablet hydroxyzine HCl 10/13/2019 12:00:00 AM EDT 10 mg by mouth completed 176768 hydroxyzine HCl by mouth [id number] 10/13/2019 11/12/2019 three times a day 30 10 mg tablet as needed 68398 144829 [id number] David Cardoza [id number] [facility] ([facility]) quetiapine 100 MG Oral Tablet [Seroquel] Seroquel 100 MG Ser oquel 100 MG 10/10/2019 12:00:00 AM EDT active 1 tablet at bedtime eCW1 ([facility]) physical therapy eval and tx - UNK 10/10/2019 12:00:00 AM EDT active - eCW1 ([facility]) quetiapine 100 MG Oral Tablet QUETIAPINE FUMARATE 10/10/2019 12: 00:00 AM EDT tablet 30 TAKE ONE TABLET BY MOUTH DAILY A T BEDTIME TAKE ONE TABLET BY MOUTH DAILY AT BEDTIME SOLD: 10/10/2019 [facility] physical therapy eval and tx - UNK 10/10/2019 12:00:00 AM EDT active - eCW1 ([facility]) quetiapine 100 MG Oral Tablet quetiapine 10/10/2019 12:00:00 AM EDT 100 mg completed [id number] quetiapine 10/10/2019 11/19/2019 at bedtime 30 100 mg tablet 66201 042055 [id number] David Cardoza [id number] [facility] ([facility]) quetiapine 100 MG Oral Tablet [Seroquel] Seroquel 100 MG Ser oquel 100 MG 10/10/2019 12:00:00 AM EDT 1.0 {tablet_at_bedtime} active Seroquel 100 MG eCW1 ([facility]) quetiapine 100 MG Oral Tablet QUETIAPINE FUMARATE 10/10/2019 12: 00:00 AM EDT tablet 30 TAKE ONE TABLET BY MOUTH DAILY A T BEDTIME TAKE ONE TABLET BY MOUTH DAILY AT BEDTIME SOLD: 11/05/2019 [facility] quetiapine 25 MG Oral Tablet [Seroquel] Seroquel 25 MG Seroq uel 25 MG 10/10/2019 12:00:00 AM EDT active 1 table t at bedtime eCW1 ([facility]) physical therapy eval and tx - UNK 10/10/2019 12:00:00 AM EDT active physical therapy eval and tx - eCW1 ([facility]) quetiapine 100 MG Oral Tablet quetiapine 10/10/2019 12:00:00 AM EDT 100 mg completed [id number] quetiapine 10/10/2019 12/09/2019 at bedtime 30 100 mg tablet 47937 [id number] [id number] David Cardoza [id number] [facility] ([facility]) Acetaminophen 325 MG / tramadol hydrochl oride 37.5 MG Oral Tablet [Ultracet] Ultracet 37.5-325 MG Ultracet 37.5-325 MG 09/25/2019 12:00:00 AM EST active 1 tablet as needed eCW1 ([facility]) Acetaminophen 325 MG / tramadol hydrochl oride 37.5 MG Oral Tablet [Ultracet] Ultracet 37.5-325 MG Ultracet 37.5-325 MG 09/25/2019 12:00:00 AM EST active 1 tablet as needed eCW1 ([facility]) Acetaminophen 325 MG / Oxycodone Hydroch loride 5 MG Oral Tablet Oxycodone- Acetaminophen 5-325 MG Oxycodone-Acetaminophen 5-325 MG 09/19/2019 12:00:00 A M EST active 1 tablet as neede d eCW1 ([facility]) Acetaminophen 325 MG / Oxycodone Hydroch loride 5 MG Oral Tablet Oxycodone- Acetaminophen 5-325 MG Oxycodone-Acetaminophen 5-325 MG 09/19/2019 12:00:00 A M EST active 1 tablet as neede d eCW1 ([facility]) Acetaminophen 325 MG / Oxycodone Hydroch loride 5 MG Oral Tablet Oxycodone- Acetaminophen 5-325 MG Oxycodone-Acetaminophen 5-325 MG 09/19/2019 12:00:00 A M EST 1.0 {tablet_as_needed} active O xycodone-Acetaminophen 5-325 MG eCW1 ([facility]) Acetaminophen 325 MG / Oxycodone Hydroch loride 5 MG Oral Tablet Oxycodone- Acetaminophen 5-325 MG Oxycodone-Acetaminophen 5-325 MG 09/19/2019 12:00:00 A M EST 1.0 {tablet_as_needed} active O xycodone-Acetaminophen 5-325 MG eCW1 ([facility]) 5-325 mg 09/19/2019 12:00:00 AM EST tablet [...] active 1 tablet as neede d eCW1 ([facility]) 5-325 mg 08/22/2019 12:00:00 AM EST [...] AM EST 100 mg by mouth completed [id number] sertraline by mouth V45304 201910/17/2019 at bedtime 30 100 mg tablet 91875 226622 [id number] David Cardoza [id number] [facility] ([facility]) Fluoxetine 20 MG Oral Capsule fluoxetine 08/18/2019 12:00:00 AM EST 20 mg by mouth completed 704323 fluoxetine by mouth [id number] 201910/17/2019 every morning 30 20 mg capsule 59671 682460 [id number] Emilio Cardoza [id number] [facility] ([facility]) 325 mg (65 mg iron) 08/13/2019 12:00:00 [...] AM EST active 1 tablet as needed [facility] ([facility]) 5 mg 08/12/2019 12:00:00 AM EST tablet [...] EST active 1 tablet as needed eCW1 ([facility]) Oxycodone Hydrochloride 5 MG Oral Tablet Oxycodone HCl 5 MG Oxycodone HCl 5 MG 07/24/2019 12:00:00 AM EST 1.0 {tablet_as_needed} active Oxycodone HCl 5 MG eCW1 ([facility]) 7.5-325 mg 07/24/2019 12:00:00 AM [...] active 1 tablet as neede d eCW1 ([facility]) Oxycodone Hydrochloride 5 MG Oral Tablet Oxycodone HCl 5 MG Oxycodone HCl 5 MG 07/24/2019 12:00:00 AM EST 1.0 {tablet_as_needed} active Oxycodone HCl 5 MG eCW1 ([facility]) Oxycodone Hydrochloride 5 MG Oral Tablet Oxycodone HCl 5 MG Oxycodone HCl 5 MG 07/24/2019 12:00:00 AM EST active 1 tablet as needed eCW1 ([facility]) Acetaminophen 325 MG / Oxycodone Hydroch loride 7.5 MG Oral Tablet Oxycodone- Acetaminophen 7.5-325 MG Oxycodone-Acetaminophen 7.5-325 MG 07/24/2019 12:00:00 AM EST active 1 tablet as neede d eCW1 ([facility]) Oxycodone Hydrochloride 5 MG Oral Tablet Oxycodone HCl 5 MG Oxycodone HCl 5 MG 07/24/2019 12:00:00 AM EST active 1 tablet as needed eCW1 ([facility]) Oxycodone Hydrochloride 5 MG Oral Tablet Oxycodone HCl 5 MG Oxycodone HCl 5 MG 07/24/2019 12:00:00 AM EST active 1 tablet as needed eCW1 ([facility]) Oxycodone Hydrochloride 5 MG Oral Tablet Oxycodone HCl 5 MG Oxycodone HCl 5 MG 07/24/2019 12:00:00 AM EST active 1 tablet as needed eCW1 ([facility]) Oxycodone Hydrochloride 5 MG Oral Tablet Oxycodone HCl 5 MG Oxycodone HCl 5 MG 07/24/2019 12:00:00 AM EST active 1 tablet as needed eCW1 ([facility]) 1 ML Ketorolac Tromethamine 30 MG/ML Car tridge ketorolac (TORADOL) injection 15 mg ketorolac (TORADOL) injection 15 mg 07/22/2019 06:30:00 PM EST 15 mg Intramuscular completed 15 mg, Intr amuscular, Once, 07/22/19 at 1830, For 1 dose [facility] Medication administered onsite benzonatate 100 MG Oral Capsule [Tessalon Perles] Joanie sol Perles 100 MG Tessalon Perles 100 MG 07/21/2019 12:00:00 AM EST active 1 capsule as needed eCW1 ([facility]) benzonatate 100 MG Oral Capsule [Tessalon Perles] Joanie sol Perles 100 MG Tessalon Perles 100 MG 07/21/2019 12:00:00 AM EST active 1 capsule as needed eCW1 ([facility]) Amoxicillin 875 MG / Clavulanate 125 MG Oral Tablet Amoxicillin-Pot Clavulanate 875-125 MG Amoxicillin-Pot Clavulanate 875-125 MG 07/21/2019 12:00:00 AM ES T active 1 tablet eCW1 ([facility]) benzonatate 100 MG Oral Capsule [Tessalon Perles] Joanie sol Perles 100 MG Tessalon Perles 100 MG 07/21/2019 12:00:00 AM EST active 1 capsule as needed eCW1 ([facility]) benzonatate 100 MG Oral Capsule BENZONATATE 07/21/2019 12:00:00 AM EST capsule 21 TAKE ONE CAPSULE BY MOUTH THREE TIMES A DAY NEEDED TAKE ONE CAPSULE BY MOUTH THREE TIMES A DAY NEEDED SOLD: 07/21/2019 [facility] benzonatate 100 MG Oral Capsule [Tessalon Perles] Joanie sol Perles 100 MG Tessalon Perles 100 MG 07/21/2019 12:00:00 AM EST active 1 capsule as needed eCW1 ([facility]) Amoxicillin 875 MG / Clavulanate 125 MG Oral Tablet Amoxicillin-Pot Clavulanate 875-125 MG Amoxicillin-Pot Clavulanate 875-125 MG 07/21/2019 12:00:00 AM ES T active 1 tablet eCW1 ([facility]) Amoxicillin 875 MG / Clavulanate 125 MG Oral Tablet Amoxicillin-Pot Clavulanate 875-125 MG Amoxicillin-Pot Clavulanate 875-125 MG 07/21/2019 12:00:00 AM ES T 1.0 {tablet} active Amoxicillin-Pot Cla vulanate 875-125 MG eCW1 ([facility]) benzonatate 100 MG Oral Capsule [Tessalon Perles] Joanie sol Perles 100 MG Tessalon Perles 100 MG 07/21/2019 12:00:00 AM EST active 1 capsule as needed eCW1 ([facility]) Amoxicillin 875 MG / Clavulanate 125 MG Oral Tablet Amoxicillin-Pot Clavulanate 875-125 MG Amoxicillin-Pot Clavulanate 875-125 MG 07/21/2019 12:00:00 AM ES T active 1 tablet eCW1 ([facility]) 875-125 mg 07/21/2019 12:00:00 AM EST tablet 28 TAKE ONE TABLET BY MOUTH EVERY 12 HOURS FOR 14 DAYS TAKE ONE TABLET BY MOUTH EVERY 12 HOURS FOR 14 DAYS SOLD: 07/21/2019 [facility] Amoxicillin 875 MG / Clavulanate 125 MG Oral Tablet Amoxicillin-Pot Clavulanate 875-125 MG Amoxicillin-Pot Clavulanate 875-125 MG 07/21/2019 12:00:00 AM ES T active 1 tablet eCW1 ([facility]) benzonatate 100 MG Oral Capsule [Tessalon Perles] Joanie sol Perles 100 MG Tessalon Perles 100 MG 07/21/2019 12:00:00 AM EST 1.0 {capsule_as_nee ded} active Tessalon Perles 100 MG eCW1 ([facility]) Amoxicillin 875 MG / Clavulanate 125 MG Oral Tablet Amoxicillin-Pot Clavulanate 875-125 MG Amoxicillin-Pot Clavulanate 875-125 MG 07/21/2019 12:00:00 AM ES T active 1 tablet eCW1 ([facility]) Oxycodone Hydrochloride 10 MG Oral Tablet Oxycodone HC l 10 MG Oxycodone HCl 10 MG 06/23/2019 12:00:00 AM EST active 1 tablet as needed eCW1 ([facility]) Oxycodone Hydrochloride 10 MG Oral Tablet Oxycodone HC l 10 MG Oxycodone HCl 10 MG 06/23/2019 12:00:00 AM EST active 1 tablet as needed eCW1 ([facility]) Oxycodone Hydrochloride 10 MG Oral Tablet Oxycodone HC l 10 MG Oxycodone HCl 10 MG 06/23/2019 12:00:00 AM EST active 1 tablet as needed eCW1 ([facility]) Oxycodone Hydrochloride 10 MG Oral Tablet Oxycodone HC l 10 MG Oxycodone HCl 10 MG 06/23/2019 12:00:00 AM EST active 1 tablet as needed eCW1 ([facility]) Oxycodone Hydrochloride 10 MG Oral Tablet Oxycodone HC l 10 MG Oxycodone HCl 10 MG 06/23/2019 12:00:00 AM EST 1.0 {tablet_as_needed} active Oxycodone HCl 10 MG eCW1 ([facility]) 10 mg 06/23/2019 12:00:00 AM EST tablet 60 TAKE 1 TABLET BY MOUTH NEEDED EVERY 12 HOURS MAXIMUM DAILY DOSE = 2 TABLETS TAKE 1 TABLET BY MOUTH NEEDED EVERY 12 HOURS MAXIMUM DAILY DOSE = 2 TABLETS SOLD: 06/23/2019 [facility] Oxycodone Hydrochloride 10 MG Oral Tablet Oxycodone HC l 10 MG Oxycodone HCl 10 MG 06/23/2019 12:00:00 AM EST active 1 tablet as needed eCW1 ([facility]) Oxycodone Hydrochloride 10 MG Oral Tablet Oxycodone HC l 10 MG Oxycodone HCl 10 MG 06/23/2019 12:00:00 AM EST active 1 tablet as needed eCW1 ([facility]) Oxycodone Hydrochloride 10 MG Oral Tablet Oxycodone HC l 10 MG Oxycodone HCl 10 MG 06/23/2019 12:00:00 AM EST active 1 tablet as needed eCW1 ([facility]) 10 mg 05/12/2019 12:00:00 AM EDT capsule 90 TAKE ONE CAPSULE BY MOUTH EVERY DAY TAKE ONE CAPSULE BY MOUTH EVERY DAY SOLD: 08/13/2019 [facility] Citalopram 10 MG Oral Tablet citalopram 05/08/2019 12:00:00 AM EDT 10 mg by mouth completed [id number] citalopram by mouth [id number] 201807/07/2019 every morning 30 10 mg tablet 80503 080722 [id number] Varghese Cardoza [id number] [facility]) 325 mg (65 mg iron) 03/31/2019 12:00:00 [...] active Take 1 tablet by mouth daily [facility] 24 HR venlafaxine 150 MG Extended Releas e Oral Tablet Venlafaxine HCl 150 MG TB24 Venlafaxine HCl 150 MG TB24 1 {tbl} Oral aborted Take 1 tablet by mouth Two Times Daily [facility] Insurance Providers Payer name Policy type / Coverage type Policy ID Covered democrat ID Covered democrat's relationship to rodriguez Policy Rodriguez Plan Information [employer] COMMUNITY PLAN MCDHMO [id number] SP [id number] [employer] COMMUNITY PLAN XIX [id number] 18 [id number] [facility] MEDICAID [id number] S [id number] [facility] MED[facility] [id number] S [id number] [facility] MEDICAID [id number] S [id number] [facility] MEDICAID [id number] S [id number] [facility] MEDICAID [id number] S [id number] [facility] MEDICAID [id number] S [id number] [facility] COMMUNITY [address] [id number] S [id number] [facility] [id number] Self [id number] Medicaid P [id number] S [id number] [facility](MCAID) O [id number] S [id number] [facility] DONALD [id number] S [id number] [facility] MEDICAID [id number] S [id number] [facility] COMM[address]ITY [address] [id number] S [id number] ANSI-Medicaid [id number] ANSI-Medicaid [id number] MEDICAID [id number] S [id number] [facility] MEDICAID [id number] S [id number] [facility] MEDICAID [id number] S [id number] [facility] MEDICAID [id number] S [id number] [facility] MEDICAID [id number] S [id number] ANSI-Medicaid [id number] ANSI-Medicaid [id number] ANSI-Medicaid [id number] ANSI-Medicaid [id number] ANSI-Medicaid [id number] ANSI-Medicaid [id number] ANSI-Medicaid [id number] ANSI-Medicaid [id number] ANSI-Medicaid [id number] ANSI-Medicaid [id number] ANSI-Medicaid [id number] ANSI-Medicaid [id number] ANSI-Medicaid [id number] ANSI-Medicaid [id number] ANSI-Medicaid [id number] ANSI-Medicaid [id number] ANSI-Medicaid [id number] ANSI-Medicaid [id number] ANSI-Medicaid [id number] ANSI-Medicaid [id number] ANSI-Medicaid [id number] ANSI-Medicaid [id number] ANSI-Medicaid [id number] ANSI-Medicaid [id number] ANSI-Medicaid [id number] ANSI-Medicaid [id number] ANSI-Medicaid [id number] ANSI-Medicaid [id number] ANSI-Medicaid [id number] ANSI-Medicaid [id number] ANSI-Medicaid [id number] ANSI-Medicaid [id number] ANSI-Medicaid [id number] ANSI-Medicaid [id number] ANSI-Medicaid [id number] [facility] I [id number] Self [id number] NO FAULT GENERIC E [id number] Self [id number] ANSI-Medicaid [id number] ANSI-Medicaid [id number] ANSI-Medicaid [id number] ANSI-Medicaid [id number] ANSI-Medicaid [id number] ANSI-Commercial [id number] ANSI-Medicaid [id number] ANSI-Medicaid [id number] ANSI-Medicaid [id number] ANSI-Medicaid [id number] ANSI-Medicaid [id number] ANSI-Medicaid [id number] ANSI-Medicaid [id number] ANSI-Medicaid [id number] ANSI-Medicaid [id number] ANSI-Medicaid [id number] ANSI-Medicaid [id number] ANSI-Medicaid [id number] ANSI-Medicaid [id number] ANSI-Commercial [id number] [facility] MEDICAID [id number] S [id number] [facility] [id number] S [id number] [facility] MEDICAID [id number] S [id number] [facility] MEDICAID [id number] S [id number] ANSI-Medicaid [id number] ANSI-Medicaid [id number] ANSI-Medicaid [id number] ANSI-Medicaid [id number] ANSI-Medicaid [id number] ANSI-Medicaid [id number] [facility] Community Plan Commercial [id number] Self [id number] [facility] Communty Plan Medicaid [id number] Self [id number] ANSI-Medicaid [id number] ANSI-Medicaid [id number] [facility] [place]ITY [place] [id number] 18 [id number] [facility] MEDICAID [id number] S [id number] MEDICAID [id number] S [id number] ANSI-Medicaid [id number] ANSI-Medicaid [id number] ANSI-Medicaid [id number] ANSI-Medicaid [id number] [facility] Community Plan Commercial [id number] Self [id number] [facility] [id number] SP [id number] [facility] Community Plan Commercial [id number] Self [id number] [facility] Health Maintenance Organization (HMO) [id number] Self [id number] BRAYAN I [id number] Self [id number] BRAYAN [id number] SP [id number] MEDICAID M [id number] Self [id number] MEDICAID M [id number] S [id number] MEDICAID CO [id number] 18 [id number] [facility] MEDICAID [facility] H[facility] [id number] S [id number] MEDICAID -PHYSICIAN [id number] MEDICAID -O/P EMERGENCY ROOM [id number] 18 [id number] UNHC AMERICHOICE XIX -HMO [id number] 18 [id number] MEDICAID [id number] SP [id number] UHC I [id number] Self [id number] Self Pay P UNAVAILABLE S UNAVAILA BLE Managed Care - [facility] P [id number] S [id number] SELF PAY ONLY [id number] SP [id number] UNHC COMMUNITY PLAN MCDHMO [id number] SP [id number] UHC I [id number] Self [id number] SELF PAY ONLY [id number] SP [id number] OTHER NO FAULT [id number] SP [id number] [facility] Commercial [id number] Self [id number] [facility] [id number] SP [id number] [facility] [id number] SP [id number] SELF PAY UNAVAILABLE SP UNAVAILA BLE [facility] [id number] S [id number] [facility] Health Maintenance Organization (HMO) Self [facility] COMM PLAN [id number] 18 [id number] [facility] Commercial Self NO FAULT GENERIC [id number] Self [id number] SELF PAY SP [id number] S [id number] [facility] COMM UNKNOWN S UN [place] AAA [id number] SP [id number] UHC I [id number] Self [id number] AAA S [id number] S [id number] OTHER NO FAULT P [id number] S [id number] UHC I [id number] Self [id number] [facility] Health Maintenance Organization (HMO) Self Uh-Community Plan-[facility] Commercial Self MEDICAID [id number] SP [id number] [facility] PLAN U [id number] Se [id number] [id number] [facility] P [id number] S [id number] [facility] HEALTHCARE [id number] SP [id number] [facility] HLTHCR O [id number] U [id number] [facility] 2 [id number] 1 0 [id number] SELFPAY 5 UNAVAILABLE 1 UNAVAILA BLE USFHP AT [facility]-O/P [id number] 01 [id number] Problems, Conditions, and Diagnoses Code Display Name Description Problem Type Effective Dates Data Source(s) M54.41 [id number] Acute midline low back pain with right-si ded sciatica Problem 06/25/2020 12:00:00 AM EST eCW1 ([facility]to) F41.9 021115183 Chronic anxiety Problem 06/25/2020 12:00:00 AM EST eCW1 ([facility]) F25.0 Schizoaffective disorder, bipolar type S chizoaffective Disorder, Bipolar type Condition 04/19/2020 12:00:00 AM EDT [facility] ([facility]) 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 Condition 04/19/2020 12:00:00 AM EDT [facility] ([facility]) F43.12 Post-traumatic stress disorder, chronic Post-traumatic stress disorder, chronic Condition 04/19/2020 12:00:00 AM EDT [facility] ([facility]) E66.9 [id number] Obesity (BMI 30-39.9) Problem 03/05/2020 12: 00:00 AM EDT eCW1 ([facility]) F25.1 Schizoaffective disorder, depressive typ e Schizoaffective Disorder, Depressive type Condition 11/21/2019 12:00:00 AM EDT [facility] ([facility]) 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 Problem 10/17/2019 12:00: 00 AM EDT eCW1 ([facility]) F51.5 [id number] Nightmares Problem 10/10/2019 12:00:00 AM ED T eCW1 ([facility]) F51.5 326635666 Nightmares Problem 10/10/2019 12:00:00 AM ED T eCW1 ([facility]) G89.29 Chronic pain Other chronic pain Problem 08/18/2019 12:0 0:00 AM EST eCW1 ([facility]) M46.1 67335333 Sacroiliitis Problem 08/12/2019 12:00:00 AM EST eCW1 ([facility]) J32.9 95917277 Sinusitis, unspecified chronicity, unspec ified location Problem 07/21/2019 12:00:00 AM EST eCW1 ([facility]) J32.9 43289624 Sinusitis, unspecified chronicity, unspec ified location Problem 07/21/2019 12:00:00 AM [facility] eCW1 ([facility]) H03150 Unspecified place in unspeci fied non-institutional (private) residence as the place of occurrence of the external cause Unspecified place in unspecified non-institutional (private) residence as the place of occurrence of the external cause Diagnosis 07/02/2020 01:57:00 PM [facility] Q266FYA Overexertion from prolonged static or awkward postures, initial encounter Overexertion from prolonged static or aw kward postures, initial encounter Diagnosis 07/02/2020 01:57:00 PM [facility] I10 Essential (primary) hypertension Essential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 results) [facility] Anion Gap 5.0-16.0 Normal (applies to non-numeric resul ts) [facility] BUN 6 mg/dL 7-18 Below low normal [facility] spital Creatinine,Serum 0.7-1.2 Normal (applies to non-numeric results) [facility] GFR >60 Normal (applies to non-numeric results) [facility] Glucose Level 94 mg/dL 60-99 Normal (applies to non-numeric re sults) [facility] Reference range is only applicable when patient is fasting Note the following drug interference: Sulfasalazine Sulfapyridine Can see falsely depressed Can see falsely elevated result with up to 17% results with up to 11% decrease in measurement increase in measurement Recommend patients be collected for this test prior to administration of either drug. Calcium 8.5-10.1 Below low normal [facility] spital Bilirubin,Total 0.1-1.9 Normal (applies to non-numeric results) [facility] SGOT(AST) 30 U/L 15-37 Normal (applies to non-numeric resul ts) [facility] Note the following drug interference: Sulfasalazine Sulfapyridine Can see falsely depressed Can see falsely elevated result with up to 10% results with up to 10% decrease in measurement increase in measurement Recommend patients be collected for this test prior to administration of either drug. SGPT(ALT) 46 U/L 12-78 Normal (applies to non-numeric resul ts) [facility] Note the following drug interference: Sulfasalazine Sulfapyridine Can see falsely depressed Can see falsely elevated result with up to 29% results with up to 10% decrease in measurement increase in measurement Recommend patients be collected for this test prior to administration of either drug. Alkaline Phosphatase 160 U/L 38-126 Above high normal [facility] can increase Alkaline Phosp le vels up to 2 times the normal adult value. Normal values for children and adolescents are 2 to 3 times the normal adult value. Total Protein 6.0-8.2 Normal (applies to non-numeric re sults) [facility] Albumin Level 3.4-5.0 Below low normal [facility] ID Date Data Source [id number] 05/02/2020 03:19:[address] [facility] Name Value Range Interpretation Code Description Data Ashly rce(s) Supporting Document(s) White Blood Count 3.5-10.5 Normal (applies to non-numeri c results) [facility] Red Blood Count 3.90-5.00 Normal (applies to non-numeric results) [facility] Hemoglobin 12.0-15.5 Normal (applies to non-numeric resul ts) [facility] Hematocrit 34.9-44.5 Normal (applies to non-numeric resul ts) [facility] Mean Corpuscular Volume 81.2-95.1 Normal (applies to non- numeric results) [facility] Mean Corpuscular Hgb 25.6-32.2 Normal (applies to non-num josé results) [facility] Mean Corpuscular Hgb Conc 32.0-36.0 Normal (applies to no n-numeric results) [facility] Red Cell Distribution Width 11.9-15.5 Normal (appli es to non-numeric results) [facility] Platelet Count 297 x10 3/uL 150-450 Normal (applies to non-numeric results) [facility] Mean Platelet Volume 9.4-12.4 Normal (applies to non-num josé results) [facility] Neutrophils% (Auto) 31.0-71.0 Normal (applies to non-nume tamie results) [facility] Lymphocytes% (Auto) 20.0-55.0 Normal (applies to non-nume tamie results) [facility] Monocytes% (Auto) 4.0-12.0 Normal (applies to non-numeri c results) [facility] Eosinophils% (Auto) 1.0-8.0 Below low normal [facility] Basophils% (Auto) 0.0-2.0 Normal (applies to non-numeri c results) [facility] Immature Granulocytes% (Auto) 0.0-2.0 Normal (sohail lies to non-numeric results) [facility] Neutrophils# (Auto) 1.50-6.20 Normal (applies to non-nume tamie results) [facility] Lymphocytes# (Auto) 1.20-4.00 Normal (applies to non-nume tamie results) [facility] Monocytes# (Auto) 0.00-0.90 Normal (applies to non-numeri c results) [facility] Eosinophils# (Auto) 0.00-0.50 Normal (applies to non-nume tamie results) [facility] Basophils# (Auto) 0.00-0.20 Normal (applies to non-numeri c results) [facility] Immature Granulocytes# (Auto) 0.00-7.00 No rmal (applies to non-numeric results) [facility] ID Date Data Source [id number] 05/02/2020 03:13:00 PM EDT [facility] Imaging Services Department Imaging Report [address] [place], [place] [address] %(RAD)RES..mtdd.print.filter("line") Name: JUHI ROLON : 1975 Age/Sex: 44F Ordering Provider: AZAR Zelaya Med Rec #: [id number] Reg Status: [facility] ER Room #: Date of Service: 05/02/20 Report Number: [id number] cc:Curry Naidu Sr, MD Send Report To: [id number] CT/CT Abdomen & Pelvis No Contras Reason [...] Dictation Date/Time: 05/02/20 150 Transcribed Date/Time: 05/02/201512 Flight Service Specialist: XIN Name Value Range Interpretation Code Description Data Ashly rce(s) Supporting Document(s) ID Date Data Source [id number] 05/04/2020 09:13:00 AM EDT [facility] spital Procedure Performed By: [facility] [address] [place] [address] Director: Estela Corona MD . Mixed zhou: Mixed zhou, probable contamination. Name Value Range Interpretation Code Description Data Ashly rce(s) Supporting Document(s) ID Date Data Source [id number] 05/04/2020 08:50:00 AM EDT [facility] Procedure Performed By: [facility] [address] [place] [address] Director: Estela Corona MD . Name Value Range Interpretation Code Description Data Ashly rce(s) Supporting Document(s) Urine Culture Normal (applies to non-numeric re sults) [facility] ID Date Data Source [id number] 05/02/2020 02:10:00 PM [facility] Collected By: Nurse Initials: af Time Collected: 1343 Collected By: Nurse Initials: af Time Collected: 1343 Name Value Range Interpretation Code Description Data Ashly rce(s) Supporting Document(s) RBC,Urine None Seen [facility] WBC,Urine None Seen [facility] Casts,Urine None Seen Normal (applies to non-numeric resu lts) [facility] Squamous Cells,Urine None Seen [facility] Bacteria,Urine None Seen [facility] Mucus,Urine None Seen [facility] ID Date Data Source [id number] 05/02/2020 02:10:00 PM [facility] Collected By: Nurse Initials: af Time Collected: 134 Collected By: Nurse Initials: af Time Collected: 1342 Name Value Range Interpretation Code Description Data Ashly rce(s) Supporting Document(s) Color,Urine Colorl-Dk Y Normal (applies to non-numeric res ults) [facility] Clarity,Urine Clear Normal (applies to non-numeric re sults) [facility] Specific [place],Urine 1.005-1.030 Normal (applies to non- numeric results) [facility] pH,Urine 5.0-8.0 Normal (applies to non-numeric resul ts) [facility] Protein,Urine Negative Normal (applies to non-numeric re sults) [facility] Glucose,Urine Negative Normal (applies to non-numeric re sults) [facility] Ketones,Urine Negative Normal (applies to non-numeric re sults) [facility] Blood,Urine Negative [facility] Bilirubin,Urine Negative Normal (applies to non-numeric results) [facility] Urobilinogen,Urine 0.2-1.0 Normal (applies to non-numer ic results) [facility] Leukocyte Esterase,Urine Negative [facility] Nitrite,Urine Negative Normal (applies to non-numeric re sults) [facility] ID Date Data Source [id number] 05/02/2020 12:26:00 PM EDT [facility] l Patient: JUHI ROLON Observation Re port - Physicians/Mid Levels [facility], [facility].VisitID: [id number] [place] [address] [phone], FRegistration Date/Time: 05/02/2020 12:04 Weight:93.8 kg (S). [...] rce(s) Supporting Document(s) ID Date Data Source [id number] 03/18/2020 12:42:00 PM EDT [facility] [...] analyzed through the latest version of the [employer] computer aided diagnosis system. The patient states [...] rce(s) Supporting Document(s) ID Date Data Source [id number] 01/10/2020 10:12:40 AM EDT [facility] XR HIP- UNILAT, 2-3 VIEWS [id number] RE SULTInterpreted by:BETTYE Leo pelvis and left [...] rce(s) Supporting Document(s) ID Date Data Source [id number] 01/09/2020 01:13:18 PM EDT [facility] Name Value Range Interpretation Code Description Data Ashly rce(s) Supporting Document(s) Progress Note [facility] JKOQTd7cJcVCUqCb78/VRFdpALKhl2XkTDgnZMg3DWnwHLXyN7DuCKA5uE8sLDT5YBfBTpTvHoUsTcC3 [facility] [file] AgICAgICAgICAgICAgICAgICAgICAgICAgICAgICAgICAgICAgICAgICAgICAgICAgICAgICAgICAgIC AgICAgICAgICAgICAgICANCiAgICAgICAgICAgICAgICAgICAgICAgICAgICAgICAgICAgICAgICAgIC AgICAgICAgICAgICAgICAgICAgICAgICAgICAgICAg ICAgICAgICAgICAgICAgICAgICAgICAgICANCiAgICAgICAgICAgICAgICAgICAgICAgICAgICAgICAg ICAgICAgICAgICAgICAgICAgICAgICAgICAgICAgICAgICAgICAgICAgICAgICAgICAgICAgICAgICAg ICAgICAgICANCiAgICAgICAgICAgICAgICAgICAgIC AgICAgICAgICAgICAgICAgICAgICAgICAgICAgICAgICAgICAgICAgICAgICAgICAgICAgICAgICAgIC AgICAgICAgICAgICAgICAgICANCiAgICAgICAgICAgICAgICAgICAgICAgICAgICAgICAgICAgICAgIC AgICAgICAgICAgICAgICAgICAgICAgICAgICAgICAg ICAgICAgICAgICAgICAgICAgICAgICAgICAgICANCiAgICAgICAgICAgICAgICAgICAgICAgICAgICAg ICAgICAgICAgICAgICAgICAgICAgICAgICAgICAgICAgICAgICAgICAgICAgICAgICAgICAgICAgICAg ICAgICAgICAgICANCiAgICAgICAgICAgICAgICAgIC AgICAgICAgICAgICAgICAgICAgICAgICAgICAgICAgICAgICAgICAgICAgICAgICAgICAgICAgICAgIC AgICAgICAgICAgICAgICAgICAgICANCiAgICAgICAgICAgICAgICAgICAgICAgICAgICAgICAgICAgIC AgICAgICAgICAgICAgICAgICAgICAgICAgICAgICAg ICAgICAgICAgICAgICAgICAgICAgICAgICAgICAgICANCiAgICAgICAgICAgICAgICAgICAgICAgICAg ICAgICAgICAgICAgICAgICAgICAgICAgICAgICAgICAgICAgICAgICAgICAgICAgICAgICAgICAgICAg ICAgICAgICAgICAgICANCiAgICAgICAgICAgICAgIC AgICAgICAgICAgICAgICAgICAgICAgICAgICAgICAgICAgICAgICAgICAgICAgICAgICAgICAgICAgIC AgICAgICAgICAgICAgICAgICAgICAgICANCjw/wDViT6psuSTqjpY2O4xzZn4NYw1JUW1tf0QuNAZaIM cnrzNpEarVTbUhPEElAezQTwm8CXkoZA9LmKGwZ0Zi Q6DpZQnjZV1EYBEoRUNnkWFmKZUfOSHfRcA2QHDhULveHH4GoJPfJOpaWHRoBYGrLxCnIZInAD3QTVIl W333kzUjWm0YHu0YYmObDY2xtx1VOgLqFFYtBusLRsu2XZzgPJ2FfTZjoGCbYMSsIHIWHtMiD7ghj0Xb WbFgDEMJSFgnOC2Rk4TizNIaHEo+Rv3PQX2xh5NsUB wjJFYnDV5lby1YVSiLPuTrH4AcgAovEINgt7wtBKNdLC9jkKWjUKI3BUX8VQ2oLWSOe60gq1mbaOjyBO FnSPRnYd4nDJ3mNSPuRHXwTxV0NZLQRV2GIWMsUWThbVPoEGFnRTBYKF8ERHonHNN5LPRetuQclEDlJH csEZ9IEEKprhPkSiMcPEUVWGf+Wf4DQC4bc6SvJPvx LfFwZG0wev2YMUnDQpDmG3C4aPYgG9K6MSjpHi0KBXJeEIDgIsSyBPBPJLtfWO3SOQ5lsgD9LQ1OtBRn IOQjUQHvwYGpHSb1F00msCBdNErwQS6GPAX+Jones+Zc6ECKXbZBHsLGBpOjUgYRJIFdQvY7XuH6XMa5Qc Z8MwMP30lTulttPhHLteDB3THV1eZRKzQOLLJJ5YzP VnvD3lxnSxIYSbSWHBMjJyA01mdALyVGSdPGXrRNPjJv3FORCpO2RaacOrkCddivCuJEAtXQRBJL6AQM fxciGpxDBptDpiAR23zNasOB9OPx0RQqFpJV3ghi4BwVQxDx7BCMCnHe2LYHJvJTRtOVMhCQW0YUZiPl BwFFizTALtIMWbIGG2PQAyDRRrQC9NLdToUOQsCtB1 ATDyMLKkIPQoeg0SGHNuWUNcAHDlErGoKHFzEEUeNRqbNFDkHUJzBCM1JZXkXCHuWJ4DWjBuQASeWVJf XPiqXRTrRWZccb3XHSFfHSIjRZIlJBPsXEWpPHDbIHowKTZiWUI2NdWdLOOzNXBqUX6IAcKlCILcJNA1 QmIkWMJhWMAwpk2QRWAjUOVePsW1InIeRHXfRWLtUY teELAbPBS6AZb5WAMxWIAbKV8XEtAmZRGmJHU4VlYkRSBeTVMiuz2STMXxRLFjTxifFMXyYOSjDDHeXM iiHHXmWQZ1DUMgUGJgQSTlVW3BPrWhGRXgAIwrIWoiHQTjHUKwcy3LDXIrJNPiQAl0FwFsISZuBDMjPW aoRZMpINGxKjVjTQKxQLVwZO8ZOoEwYQBeToZ5OPUt JIDrHGDovj4BDJQsNQOfCZPiPsSxUXCiRZYcQBvhBNDjNPMzHWJ6TMZaMTRpES6PVnMeTBKpSeWvVJVu GPVdRDQvhh1OHGXnUASwGvI4UDXzCYIwVUCnKFxaMQOzHBKtDLP8BAMbABRjPT2LUfCqUYTbKxY4FzTo KXPxXVCcjf2HYAWmQGKtCWNnAZSxSCHtTYJxOKhlAA HhYGA5BhjmKWErQQGfRC6DToDwJTSuVsH7ARNmYSFkXKYvij3MjJGfiZnmmv0FZDtLJh1RsDxsIKJ5UP fuEi8pgHAoJhDyHETXAx2DdgGfEFRdNYBHAClxZABwFWWiIPNlDzS3ZJE6Wyq5SqevZQTqSoyeSIEjMC g5PYC9NqL4JYHyIUYaCNVzMJz4Aqt3MDC6PdClZ1Dl AjDvGYg2MCU+UY5zVHj+Tx4Pb1RnciA8oaAlIFnhIRj9IR0MCODDY0HPLo== ID Date Data Source [id number] 01/08/2020 10:11:00 PM EDT [facility] 1 OrderSheet [facility] Emergency Department [address] [place] [address] Phone #: ext- [phone] 01/08/2020 22:10 Patient: [...] rce(s) Supporting Document(s) ID Date Data Source [id number] 01/08/2020 10:11:00 PM EDT [facility] 1 Medication Reconciliation Report [facility] Emergency Department [address] [place] [address] Phone #: ext- [phone] 01/08/2020 22:10 Patient: [...] Dispense 14 tablet. Refills: 0.Substitution permitted.Pharmacy - [facility] - [address] ; [place], [place] [phone]. . -- AZAR Alan Name Value Range Interpretation Code Description Data Ashly rce(s) Supporting Document(s) ID Date Data Source [id number] 01/08/2020 10:11:00 PM EDT [facility] 1 Medication Administration Record [facility] Emergency Department [address] [place] [address] Phone #: ext- [phone] 01/08/2020 22:10 Patient: JUHI ROLON Sex: F : 1975 Age: 44yWeight: 93.8 kgHeight/Length: 63 inBMI: 36.6ALLERGIES: Ibuprofen Date/Time Medication Administered Medication OrderedGiven AMOXICILLIN CAPSULES [PO] Amoxicillin Capsules PO 500 mg23:17 01/08/2020 Dose: 500 mg Capsules PO (NOW x1)Roscoe Fink RN Name Value Range Interpretation Code Description Data Ashly rce(s) Supporting Document(s) ID Date Data Source [id number] 01/08/2020 10:11:00 PM EDT [facility] 1 General Instructions [facility] Emergency Department [address] [place] [address] Phone #: ext- [phone] 01/08/2020 22:10 Patient: [...] Dispense 14 tablet. Refills: 0.Substitution permitted.Pharmacy - [facility] - [address] ; [place], [place] [phone]. .Follow-up:Follow up with your healthcare provider Dentist if not better. Call for an appointment. Reason for referral:evaluation and treatment. Summary of care provided to patient via paper.Understanding of the discharge instructions verbalized by patient. ADDITIONAL INFORMATIONDental Pain 2 General Instructions [facility] Emergency Department [address] [place] [address] Phone #: ext- [phone] 01/08/2020 22:10 Patient: [...] temperature. Use toothpaste made for sensitive teeth. [place] gently up and down instead of sideways. Brushing sideways can wear away root surfaces if they are exposed. If your tooth is chipped or cracked, or if there is a large open cavity, put oil of cloves directly on the tooth to relieve pain. You can buy oil of cloves at drugstores. Some pharmacies carry an uopx-cho-oijkzja "toothache kit." This contains a paste that you can put on the exposed tooth to make it less sensitive. 3 General Instructions [facility] Emergency Department [address] [place] [address] Phone #: [phone]- [phone] 01/08/2020 22:10 [id number] Sex[facility] F : 1975 Age: 44y Put a cold pack on your jaw over the sore area to help reduce pain. You may use diuy-hav-oujnxju medicine to ease pain, unless your doctor [...] This will keep the pain from comingback.Call [phone] if any of these occur: Unusual drowsiness [...] healthcare provider Pus drains from the tooth [phone] [employer]. [address] [place] [address], [place] [address]. All rights reserved. This information is not intended as asubstitute for professional medical care. Always follow your healthcare professional's instructions. You have been given the following additional information: Dental Pain 4 General Instructions [facility] Emergency Department [address] [place] [address] Phone #: ext- [phone] 01/08/2020 22:10 Patient: JUHI ROLON Sex: F : 1975 Age: 44y(Electronically signed by AZAR Alan 01/08/2020 23:23) Name Value Range Interpretation Code Description Data Ashly rce(s) Supporting Document(s) ID Date Data Source [id number] 01/08/2020 10:11:00 PM EDT [facility] 1 Clinical Report - Nurses [facility] Emergency Department [address] [place] [address] Phone #: ext- [phone] 01/08/2020 22:10 Patient: JUHI ROLON Sex: F : 1975 Age: 44yTRIAGEArrived by private vehicle. Historian: patient. ( c/o tooth pain after having wisdom tooth extracted 10days ago).Triage time: 22:12 01/08/2020. Acuity: LEVEL 4.Chief Complaint: RIGHT LOWER TOOTHACHE.Alert. No acute distress.Onset. (10 days ago). She has no dental appointment scheduled.Treatment COMMUNITY ACTION WORKER:None.SEPSIS SCREEN: Sepsis Screen negative. No suspected or [...] Jerez R.N.History 2 Clinical Report - Nurses [facility] Emergency Department [address] [place] [address] Phone #: ext- [phone] 01/08/2020 22:10 Patient: [...] treatment room. --22:17 01/08/20 Greg Jerez R.N.PHYSICAL MVELPBIXNY48:01/08/20. Ambulatory to room.GENERAL / NEURO / PSYCH: [...] Ochoa R.N. 3 Clinical Report - Nurses [facility] Emergency Department [address] [place] [address] Phone #: ext- [phone] 01/08/2020 22:10 Patient: JUHI ROLON Sex: F : 1975 Age: 44y Departure time: 23:27 01/08/2020. Condition at departure: improved. No learning barriers present. Discharge instructions provided and reviewed with the patient. Reviewed medication(s) side effects, precautions, dosing and course information. Prescription(s) sent electronically to pharmacy. Reviewed referral to a dentist for followup. Patient verbalized understanding. Written instructions provided in [place]. The patient was discharged home and accompanied by family. She left ambulatory and via private vehicle. Family member driving. --23:49 01/08/20 Roscoe Fink RN.Locked/Released at 01/08/2020 23:51 by Roscoe Fink RN Name Value Range Interpretation Code Description Data Ashly rce(s) Supporting Document(s) ID Date Data Source [id number] 01/08/2020 10:11:00 PM EDT [facility] 1 Clinical Report - Physicians/Mid Levels [facility] Emergency Department [address] [place] [address] Phone #: ext- [phone] 01/08/2020 22:10 Patient: [...] midline. 2 Clinical Report - Physicians/Mid Levels [facility] Emergency Department [address] [place] [address] Phone #: ext- [phone] 01/08/2020 22:10 Patient: JUHI ROLON Sex: F [...] tablet. Refills: 0. Substitution permitted. Pharmacy - [facility] - [address] ; [place], [place] [phone]. . 3 Clinical Report - Physicians/Mid Levels [facility] Emergency Department [address] [place] [address] Phone #: [phone] ext- [phone] 01/08/2020 22:10 Patient: JUHI ROLON Sex: F [...] rce(s) Supporting Document(s) ID Date Data Source [id number] 01/04/2020 11:31:00 PM EDT [facility] l Patient: JUHI ROLON Observation Re port - Physicians/Mid Levels [facility].VisitID: [id number] [place] [address] [phone], FRegistration Date/Time: 01/01/2020 19:25 Weight:93.8 kg (S). [...] rce(s) Supporting Document(s) ID Date Data Source [id number] 01/03/2020 12:05:00 PM EDT [facility] l Name Value Range Interpretation Code Description Data Ashly rce(s) Supporting Document(s) HEP A AB, IGM Negative Negative [facility] HEP B SURFACE ANTIGEN SCREEN Negative Negative R [facility] HEP B CORE AB, IGM Negative Negative [facility] HCV ANTIBODY <0.1 0.0-0.9 [facility] INFCE Result Units: s/co ratio Negative: < 0.8 Indeterminate: 0.8 - 0.9 Positive: > 0.9 The CDC recommends that a positive HCV antibody result be followed up with a HCV Nucleic Acid Amplification test (827505).Performed at: - [facility] [address] [id number] Director: Laisha Henriquez MD, Phone: [phone] ID Date Data Source [id number] 01/03/2020 12:05:00 PM EDT [facility] Name Value Range Interpretation Code Description Data [facility] rce(s) Supporting Document(s) Hep A Ab, IgM Negative Negative [facility] HBsAg Screen Negative Negative [facility] Hep B Core Ab, IgM Negative Negative [facility] Hep C Virus Ab 0.0-0.9 [facility] Negative: < 0.8 Indeterminate: 0.8 - 0.9 Positive: > 0.9 The CDC recommends that a positive HCV antibody result be followed up with a HCV Nucleic Acid Amplification test (611675). ID Date Data Source [id number] 01/01/2020 07:51:00 PM EDT [facility] l TSYSORDER [id number] Name Value Range Interpretation Code Description Data [facility] rce(s) Supporting Document(s) HIV 1/2 AB NON-REACTIVE [facility] HIV AG NON-REACTIVE [facility] ID Date Data Source [id number] 08/25/2019 09:11:00 AM EST [facility] Exam Number: [id number] joint steroid i njectionPRE AND POST-OP DIAGNOSIS:SacroiliitisPROCEDURE:Fluoroscopy guided Left sided sacroiliac intra-articular steroidinjectionANESTHESIA:COMPLICATIONS: NoneDISPOSITION: Stable to home, with jinrikisha driver.CONSENT: Informed consent was obtained.SURGEON: Case Cristina M.D.Timeout [...] given to patient. Patient wasdischarged with a jinrikisha driver.Procedure codes (CPT):[id number] will be followed up in the pain cli nicElectronically signed in PS360 by: Russell Cristina MD08/25/2019 9:03 EST Reported By: - CASE CRISTINA MD Signed By: CASE CRISTINA MD Name Value Range Interpretation Code Description Data Ashly rce(s) Supporting Document(s) ID Date Data Source [id number] 08/25/2019 07:59:00 AM EST [facility] Does the pt. have a limb restriction? N Name Value Range Interpretation Code Description Data Ashly rce(s) Supporting Document(s) UHCG NEGATIVE Negative N [facility] ID Date Data Source [id number] 07/29/2019 09:17:16 PM EST [facility] Name Value Range Interpretation Code Description Data Ashly rce(s) Supporting Document(s) ED Provider Note [facility] [id number]/JFQbtVCHbq2SiOGwnZIg9NTxpXUDiF6UaFNQ2lV5pRLT1TPlJSmCpWlRsRWM3 lbm [file] [id number]MxH4YRE5lAWhIs9FOZC7TNRMPtJuTL4LMWz= ID Date Data Source [id number] 07/22/2019 07:15:08 PM EST [facility] XR HIP- UNILAT, 2-3 VIEWS [id number] RE SULTInterpreted by:Ward Sol MDLeft hip, 2-3 [...] Never Smoker completed Never S moker eCW1 ([facility]) Smoking 07/06/2020 12:00:00 AM EST Never Smoker completed Never S moker eCW1 ([facility]) Smoking 06/25/2020 12:00:00 AM EST Never Smoker completed Never S moker eCW1 ([facility]) Smoking 06/25/2020 12:00:00 AM EST Never Smoker completed Never S moker eCW1 ([facility]) Smoking 04/19/2020 12:00:00 AM EDT Unknown if ever smoked comp leted Unknown if ever smoked [facility] ([facility]) Smoking 04/16/2020 12:00:00 AM EDT Unknown if ever smoked comp leted Unknown if ever smoked [facility] ([facility]) Smoking 03/26/2020 12:00:00 AM EDT Unknown if ever smoked comp leted Unknown if ever smoked [facility] ([facility]) Smoking 03/05/2020 12:00:00 AM EDT Never Smoker completed Never S moker eCW1 ([facility]) Smoking 03/05/2020 12:00:00 AM EDT Never Smoker completed Never S moker eCW1 ([facility]) Smoking 01/19/2020 12:00:00 AM EDT Unknown if ever smoked comp leted Unknown if ever smoked [facility] ([facility]) Alcohol intake 01/09/2020 12:00:00 AM EDT Current drinker of al cohol (finding) completed Current drinker of alcohol (finding) [facility] Smoking 01/09/2020 12:00:00 AM EDT Never smoker completed Never s [facility] Smoking 12/31/2019 12:00:00 AM EDT Unknown if ever smoked comp leted Unknown if ever smoked [facility] ([facility]) Smoking 12/19/2019 12:00:00 AM EDT Unknown if ever smoked comp leted Unknown if ever smoked [facility] ([facility]) Smoking 11/21/2019 12:00:00 AM EDT Unknown if ever smoked comp leted Unknown if ever smoked [facility] ([facility]) Smoking 11/19/2019 12:00:00 AM EDT Unknown if ever smoked comp leted Unknown if ever smoked [facility] ([facility]) Smoking 10/24/2019 12:00:00 AM EDT Unknown if ever smoked comp leted Unknown if ever smoked [facility] ([facility]) Smoking 10/17/2019 12:00:00 AM EDT Never Smoker completed Never S moker eCW1 ([facility]) Smoking 10/09/2019 12:00:00 AM EDT Unknown if ever smoked comp leted Unknown if ever smoked [facility] ([facility]) Smoking 09/26/2019 12:00:00 AM EST Unknown if ever smoked comp leted Unknown if ever smoked [facility] ([facility]) Smoking 08/29/2019 12:00:00 AM EST Unknown if ever smoked comp leted Unknown if ever smoked [facility] ([facility]) Smoking 08/18/2019 12:00:00 AM EST Unknown if ever smoked comp leted Unknown if ever smoked [facility] ([facility]) Smoking 08/08/2019 12:00:00 AM EST Unknown if ever smoked comp leted Unknown if ever smoked [facility] ([facility]) Alcohol intake 07/22/2019 12:00:00 AM EST Current drinker of al cohol (finding) completed Current drinker of alcohol (finding) [facility] Smoking 07/22/2019 12:00:00 AM EST Never smoker completed Never s [facility] Vital Signs ID Date Data Source UNK Name Value Range Interpretation Code Description Data Source(s) Oxygen saturation in Arterial blood by Pulse oximetry 99 % 99 % eCW1 ([facility]) Respiratory rate 17 /min 17 /min eCW1 ([facility]) Heart rate 72 /min 72 /min eCW1 ([facility]) Body temperature 97.8 [degF] 97.8 [degF] eCW1 ( [facility]) Body mass index (BMI) [Ratio] 43.44 kg/m2 43.44 kg/m2 eCW1 ([facility]) Body weight 241.4 [lb_av] 241.4 [lb_av] eCW1 ([facility]) Body height 62.5 [in_i] 62.5 [in_i] eCW1 ([facility]) Diastolic blood pressure 0 mm[Hg] Normal (applies to non-numeric results) 0 mm[Hg] [facility] ([facility]) Systolic blood pressure 0 mm[Hg] Normal (applies t o non-numeric results) 0 mm[Hg] [facility] ([facility]) Body mass index (BMI) [Ratio] 0.00 kg/m2 No rmal (applies to non-numeric results) 0.00 kg/m2 [facility] ([facility]) Body weight Measured 0.00 lbs Normal (applies to n on-numeric results) 0.00 lbs [facility] ([facility]) Body height 0.00 in Normal (applies to non-numeric resu lts) 0.00 in [facility] ([facility]) Oxygen saturation in Arterial blood by Pulse oximetry 99 % 99 % eCW1 ([facility]) Respiratory rate 18 /min 18 /min eCW1 ([facility]) Heart rate 90 /min 90 /min eCW1 ([facility]) Body mass index (BMI) [Ratio] 39.84 kg/m2 39.84 kg/m2 eCW1 ([facility]) Body weight 221.4 [lb_av] 221.4 [lb_av] eCW1 ([facility]) Body height 62.5 [in_i] 62.5 [in_i] eCW1 ([facility]) Diastolic blood pressure 0 mm[Hg] Normal (applies to non-numeric results) 0 mm[Hg] [facility] ([facility]) Systolic blood pressure 0 mm[Hg] Normal (applies t o non-numeric results) 0 mm[Hg] [facility] ([facility]) Body mass index (BMI) [Ratio] 0.00 kg/m2 No rmal (applies to non-numeric results) 0.00 kg/m2 [facility] ([facility]) Body weight Measured 0.00 lbs Normal (applies to n on-numeric results) 0.00 lbs [facility] ([facility]) Body height 0.00 in Normal (applies to non-numeric resu lts) 0.00 in [facility] ([facility]) Diastolic blood pressure 0 mm[Hg] Normal (applies to non-numeric results) 0 mm[Hg] [facility] ([facility]) Systolic blood pressure 0 mm[Hg] Normal (applies t o non-numeric results) 0 mm[Hg] [facility] Body mass index (BMI) [Ratio] 0.00 kg/m2 No rmal (applies to non-numeric results) 0.00 kg/m2 [facility] ([facility]) Body weight Measured 0.00 lbs Normal (applies to n on-numeric results) 0.00 lbs [facility] ([facility]) Body height 0.00 in Normal (applies to non-numeric resu lts) 0.00 in [facility] ([facility]) Heart rate 124 /min 124 /min W1 ([facility]) Body mass index (BMI) [Ratio] 38.97 kg/m2 38.97 kg/m2 [facility] ([facility]) Body weight Measured 220.0 [lb_av] 220.0 [lb_av ] W1 ([facility]) Body height 63 [in_us] 63 [in_us] eCW1 ([facility]) Diastolic blood pressure 101 mm[Hg] 101 mm[Hg] eCW1 ([facility]) Systolic blood pressure 161 mm[Hg] 161 mm[Hg] e 1 ([facility]) Deprecated Oxygen saturation in Capillary blood by Oximetry 99 % 99 % W1 ([facility]) Respiratory rate 16 /min 16 /min eCW1 ([facility]) Diastolic blood pressure 96 mm[Hg] 96 mm[Hg] eCW1 ([facility]) Systolic blood pressure 143 mm[Hg] 143 mm[Hg] e CW1 ([facility]) Deprecated Oxygen saturation in Capillary blood by Oximetry 97 % 97 % eCW1 ([facility]) Respiratory rate 16 /min 16 /min eCW1 ([facility]) Heart rate 109 /min 109 /min eCW1 ([facility]) Body mass index (BMI) [Ratio] 38.61 kg/m2 38.61 kg/m2 W1 ([facility]) Body weight Measured 218.0 [lb_av] 218.0 [lb_av ] eCW1 ([facility]) Body height 63 [in_us] 63 [in_us] eCW1 ([facility]) Diastolic blood pressure 0 mm[Hg] Normal (applies to non-numeric results) 0 mm[Hg] [facility] ([facility]) Systolic blood pressure 0 mm[Hg] Normal (applies t o non-numeric results) 0 mm[Hg] [facility] ([facility]) Body mass index (BMI) [Ratio] 0.00 kg/m2 No rmal (applies to non-numeric results) 0.00 kg/m2 [facility] ([facility]) Body weight Measured 0.00 lbs Normal (applies to n on-numeric results) 0.00 lbs [facility] ([facility]) Body height 0.00 in Normal (applies to non-numeric resu lts) 0.00 in [facility] ([facility]) Diastolic blood pressure 101 mm[Hg] 101 mm[Hg] eCW1 ([facility]) Systolic blood pressure 145 mm[Hg] 145 mm[Hg] e CW1 ([facility]) Deprecated Oxygen saturation in Capillary blood by Oximetry 99 % 99 % W1 ([facility]) Respiratory rate 16 /min 16 /min eCW1 ([facility]) Heart rate 93 /min 93 /min eCW1 ([facility]) Body mass index (BMI) [Ratio] 38.61 kg/m2 38.61 kg/m2 eCW1 ([facility]) Body weight Measured 218.0 [lb_av] 218.0 [lb_av ] eCW1 ([facility]) Body height 63 [in_us] 63 [in_us] eCW1 ([facility]) Deprecated Oxygen saturation in Capillary blood by Oximetry 99 % 99 % W1 ([facility]) Respiratory rate 18 /min 18 /min eCW1 ([facility]) Heart rate 94 /min 94 /min eCW1 ([facility]) Body temperature 98.4 [degF] 98.4 [degF] eCW1 ( [facility]) Body mass index (BMI) [Ratio] 39.41 kg/m2 39.41 kg/m2 eCW1 ([facility]) Body weight Measured 219.0 [lb_av] 219.0 [lb_av ] eCW1 ([facility]) Body height 62.5 [in_us] 62.5 [in_us] eCW1 ([facility]) ID Date Data Source [id number] 05/04/2020 09:13:00 AM EDT [facility] Name Value Range Interpretation Code Description Data Source(s) Weight Measurement Method [address] [facility] Weight 3312 3312 [facility] pital Temperature Source 7 7 [facility] Temperature 96.6 96.6 [facility] spital Respiratory Rate 18 18 [facility] Pulse Rate 84 84 [facility] pital Height 63 63 [facility] pital Blood Pressure 149/82 149/[address] [facility] Weight Measurement Method [address] [facility] Weight 3312 3312 [facility] pital Temperature Source 7 7 [facility] Temperature 96.6 96.6 [facility] spital Respiratory Rate 16 16 [facility] Pulse Rate 84 84 [facility] pital Height 63 63 [facility] pital Blood Pressure 149/82 149/[address] [facility] Weight Measurement Method [address] [facility] Weight 3312 3312 [facility] pital Temperature Source 7 7 [facility] Temperature 96.6 96.6 [facility] spital Respiratory Rate 16 16 [facility] Pulse Rate 84 84 [facility] pital Height 63 63 [facility] Pressure 149/82 149/[address] [facility] ID Date Data Source [id number] 07/29/2019 09:17:16 PM EST [facility] Name Value Range Interpretation Code Description Data Source(s) WEIGHT RECORDED 207 lb 207 lb [facility] Body height Measured 63 in 63 in [facility] Patient Treatment Plan of Care Planned Activity Planned Date Details Description Data Source (s) Diclofenac Sodium 1 % 06/25/2020 12:00:00 AM EST eCW1 ([facility]) physical therapy eval and tx - 06/25/2020 12:00:00 AM EST eCW1 ([facility]) Diclofenac Sodium 1 % 06/25/2020 12:00:00 AM EST eCW1 ([facility]) physical therapy eval and tx - 06/25/2020 12:00:00 AM EST eCW1 ([facility]) gabapentin 300 MG Oral Capsule 03/05/2020 12:00:00 AM EDT eCW1 ([facility]) gabapentin 300 MG Oral Capsule 03/05/2020 12:00:00 AM EDT eCW1 ([facility]) Prazosin 1 MG Oral Capsule 10/17/2019 12:00:00 AM EDT eCW1 ([facility]) Fluoxetine 20 MG Oral Capsule [Prozac] 10/17/2019 12:00:00 AM EDT eCW1 ([facility]) Prazosin 1 MG Oral Capsule 10/17/2019 12:00:00 AM EDT eCW1 ([facility]) Fluoxetine 20 MG Oral Capsule [Prozac] 10/17/2019 12:00:00 AM EDT eCW1 ([facility]) physical therapy eval and tx - 10/10/2019 12:00:00 AM EDT eCW1 ([facility]) quetiapine 25 MG Oral Tablet [Seroquel] 10/10/2019 12:00:00 AM EDT eCW1 ([facility]) Acetaminophen 325 MG / tramadol hydrochloride 37.5 MG Oral Tablet [Ultracet] 09/25/2019 12:00:00 AM EST eCW1 ([facility]) Acetaminophen 325 MG / Oxycodone Hydrochloride 5 MG Or al Tablet 09/19/2019 12:00:00 AM EST eCW1 ([facility]) Acetaminophen 325 MG / Oxycodone Hydrochloride 5 MG Or al Tablet 09/19/2019 12:00:00 AM EST eCW1 ([facility]) Acetaminophen 325 MG / Oxycodone Hydrochloride 5 MG Or al Tablet 09/19/2019 12:00:00 AM EST eCW1 ([facility]) Acetaminophen 325 MG / Oxycodone Hydrochloride 5 MG Or al Tablet 08/22/2019 12:00:00 AM EST eCW1 ([facility]) Cyclobenzaprine hydrochloride 5 MG Oral Tablet 08/12/2019 12:00:00 AM EST eCW1 ([facility]) Acetaminophen 325 MG / Oxycodone Hydrochloride 7.5 MG Oral Tablet 07/24/2019 12:00:00 AM EST eCW1 ([facility]) Oxycodone Hydrochloride 5 MG Oral Tablet 07/24/2019 12:00:00 AM EST eCW1 ([facility]) benzonatate 100 MG Oral Capsule [Titi Lino] 07/21/2019 12: 00:00 AM EST eCW1 ([facility]) Amoxicillin 875 MG / Clavulanate 125 MG Oral Tablet 07/21/20 12:00:00 AM EST eCW1 ([facility]) Oxycodone Hydrochloride 10 MG Oral Tablet 06/23/2019 12:00:00 AM ES T eCW1 ([facility]) Oxycodone Hydrochloride 10 MG Oral Tablet 06/23/2019 12:00:00 AM ES T eCW1 ([facility]) Oxycodone Hydrochloride 5 MG Oral Tablet 11/08/2018 12:00:00 AM [facility] Aspirin 81 MG Delayed Release Oral Tablet 10/26/2018 12:00:00 AM [facility] 24 HR venlafaxine 150 MG Extended Release Oral Tablet [facility]
== END 2020-08-08 13:16 | disposition home or self-care (01) ==
LOC: M ED 12:40
DX: M65.4 Radial styloid tenosynovitis [de Quervain] (principal); I10 Essential (primary) hypertension; G40.909 Epilepsy, unspecified, not intractable, without status epilepticus; Z87.820 Personal history of traumatic brain injury; K21.9 Gastro-esophageal reflux disease without esophagitis; F41.9 Anxiety disorder, unspecified; F31.9 Bipolar disorder, unspecified; Z88.6 Allergy status to analgesic agent; Z91.030 Bee allergy status; Z79.899 Other long term (current) drug therapy

== ENCOUNTER 2021-01-29 05:20 | Emergency (ER) | payer OTHER ==
[~2021-01-29] VITALS: Ht 160 cm; Wt 107.2 kg
[~2021-01-29 05:20] MED LIST changes: +BUPR150T12 PO; -BUPR150T4 PO; +GABA-282; -RIZA5TAB PO; +RIZA5TAB2 PO
[2021-01-29 05:22] VITALS: BP 177/82
== END 2021-01-29 07:11 | disposition left against medical advice (07) ==
LOC: M ED 05:20
DX: Z53.21 Procedure and treatment not carried out due to patient leaving prior to being seen by health care provider (principal)

== ENCOUNTER → 2021-03-16 | Outpatient (CLI) | payer OTHER ==
[2021-03-16 11:40] LABS: HEMATOCRIT 39.8 % (36.0-47.0); HEMOGLOBIN 12.7 g/dl (12.0-15.5); MEAN CORPUSCULAR HEMOGLOBIN 28.1 pg (27.0-33.0); MEAN CORPUSCULAR HGB CONC 31.9 g/dl (32.0-36.5); MEAN CORPUSCULAR VOLUME 88.1 fl (80.0-96.0); PLATELET COUNT, AUTOMATED 348 10^3/uL (150-450); RED BLOOD COUNT 4.52 10^6/uL (4.00-5.40); WHITE BLOOD COUNT 5.3 10^3/uL (4.0-10.0)
[2021-03-16 12:09] LABS: ATYPICAL LYMPH 4 % (0-5); BASOPHILS 1 % (0-1); LYMPHOCYTES 25 % (16-44); MONOCYTES 6 % (0-5); NEUTROPHILS 64 % (28-66); PLATELET CLUMPS SMALL AMT; PLATELET ESTIMATE NORMAL (NORMAL)
[2021-03-16 12:14] LABS: ALBUMIN 3.3 GM/DL (3.2-5.2); ALT/SGPT 51 U/L (12-78); BILIRUBIN,TOTAL 0.3 MG/DL (0.2-1.0); BLOOD UREA NITROGEN 12 MG/DL (7-18); CALCIUM LEVEL 8.9 MG/DL (8.5-10.1); CARBON DIOXIDE LEVEL 26 MEQ/L (21-32); CHLORIDE LEVEL 109 MEQ/L (98-107); CHOLESTEROL LEVEL 165 MG/DL (<200); CHOLESTEROL RISK RATIO 2.796 (<5); CREATININE FOR GFR 0.67 MG/DL (0.55-1.30); GLOMERULAR FILTRATION RATE > 60.0 (>58); GLUCOSE, FASTING 96 MG/DL (70-100); HDL CHOLESTEROL 59 MG/DL (>40); IRON (FE) 47 UG/DL (50-170); LDL CHOLESTEROL 80 MG/DL (<100); NON-HDL-C 106 MG/DL; POTASSIUM SERUM 4.5 MEQ/L (3.5-5.1); SODIUM LEVEL 139 MEQ/L (136-145); TRIGLYCERIDES LEVEL 132 MG/DL (<150)
[2021-03-16 12:17] LABS: TOTAL 25(OH) VITAMIN D 26.5 NG/ML (30.0-100.0)
== END ==
LOC: M LAB 10:26
PROVIDERS: ATTEND Family Medicine
DX: E78.5 Hyperlipidemia, unspecified (principal); Z98.84 Bariatric surgery status

== ENCOUNTER 2021-03-22 15:26 | Emergency (ER) | payer OTHER ==
[~2021-03-22] VITALS: Ht 160 cm; Wt 111.6 kg
[2021-03-22 15:36] VITALS: BP 141/92
== END 2021-03-22 21:46 | disposition left against medical advice (07) ==
LOC: M ED 20:46
DX: Z53.21 Procedure and treatment not carried out due to patient leaving prior to being seen by health care provider (principal)

== ENCOUNTER 2021-03-28 13:44 | Emergency (ER) | payer OTHER ==
[~2021-03-28] VITALS: Ht 160 cm; Wt 95.5 kg
[2021-03-28] MEDS ORDERED: SERO1TAB2 (14:29)
[2021-03-28] MEDS ORDERED: HYDR-3713 (14:29)
[2021-03-28] MEDS ORDERED: ALPR0.5T3 (14:29)
[2021-03-28] MEDS ORDERED: ALBU8.5H (14:29)
[2021-03-28] MEDS ORDERED: MULT400T10 (14:29)
[2021-03-28] MEDS ORDERED: EFFE150C2 (14:29)
[2021-03-28] MEDS ORDERED: LOSA100T50 (14:29)
[2021-03-28] MEDS ORDERED: SUMA25TA3 (14:29)
[2021-03-28 16:53] VITALS: BP 146/91
== END 2021-03-28 16:55 | disposition home or self-care (01) ==
LOC: M ED 13:44
DX: K62.3 Rectal prolapse (principal); I10 Essential (primary) hypertension; R56.9 Unspecified convulsions; F41.9 Anxiety disorder, unspecified; F31.89 Other bipolar disorder; Z87.820 Personal history of traumatic brain injury; Z87.59 Personal history of other complications of pregnancy, childbirth and the puerperium; Z98.84 Bariatric surgery status; Z79.899 Other long term (current) drug therapy; Z88.6 Allergy status to analgesic agent; Z91.030 Bee allergy status

== ENCOUNTER 2021-04-21 20:05 | Emergency (ER) | payer OTHER, MEDICARE ==
[~2021-04-21] VITALS: Ht 160 cm; Wt 114.0 kg
[~2021-04-21 20:05] MED LIST changes: +ALBU8.5H; +ALPR0.5T3; +EFFE150C2; +HYDR-3713; +LOSA100T50; +MULT400T10; +SERO1TAB2; +SUMA25TA3
[2021-04-21 20:06] VITALS: BP 114/88
== END 2021-04-22 02:24 | disposition left against medical advice (07) ==
LOC: M ED 20:05
DX: Z53.21 Procedure and treatment not carried out due to patient leaving prior to being seen by health care provider (principal)

== ENCOUNTER 2021-05-14 18:52 | Emergency (ER) | payer OTHER, MEDICARE ==
[~2021-05-14] VITALS: Ht 160 cm; Wt 98.6 kg
[2021-05-14 18:53] VITALS: BP 136/90
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
--- OUTSIDE RECORDS SUMMARY | 2021-05-14 19:01 | CCD | Continuity of Care Document ---
Author Author Aysha NORRIS MD Organization Unknown Address [address] [place] [address] Phone [phone] Care Team Providers Care Contact Lens Lathe Operator Name Role Phone Rip Burton AUTM [phone] Problems Active Problems Provider Date Abrasion, upper [...] alcohol Tobacco Use Start: Unknown Denies Smoking Allergies and adverse reactions Active Allergies Criticality Reaction | Severity Comments Date Ibuprofen Unable to assess criticality 11/22/2016 Medications Active Medications SIG Qnty Indications Ordering Provide r Date Gabapentin 100mg Capsules 1-2 cap by mouth three times a day 90caps Romero Norris MD 04/29/2021 Diclofenac Sodium 1% Gel Apply 1 Gram Topically To Affected Areas On Hands 3 Times A Day as Directed 100units M19.031 DClive Lam MD 09/03/2020 Fluticasone Propionate Nasal [place] Aller gy Relief 24- Hour 50mcg/Act Suspension [...] Available Vital Signs Date Vital Result Comment 04/29/2021 8:59am Body Temperature 97.5 F Height 64 inches 5'4" Weight 239.38 lb BMI (Body Mass Index) 41.1 kg/m2 04/06/2021 3:19pm Body Temperature 97.6 F Height 63 inches 5'3" Weight 217.00 lb BMI (Body Mass Index) 38.4 kg/m2 Results Description No Information Available Procedures Date Code Description Status 04/29/2021 07355 Office/Outpatient Established Mo d MDM 30-39 Min Completed 04/29/2021 25122 X-Ray Hip Unilateral With Pelvis 2-3 Views Completed 04/29/2021 28999 X-Ray Spine Lumbosacral Complete Inc Bending Views Min Of 6 Completed 04/29/2021 14900 X-Ray Spine Cervical 6 Or More V iews Completed 04/25/2021 83508 Office/Outpatient Established Lo w MDM 20-29 Min Completed 04/06/2021 82799 Office/Outpatient New Moderate M DM 45-59 Minutes Completed 04/06/2021 88073 Nerve Conduction 9-10 Studies Co mpleted 04/06/2021 70311 Needle Electromyography,Complete Five Or More Muscles Studied Completed Medical Devices Description No Information Available Encounters Type Date Location Provider Dx Diagnosis Office Visit 04/29/2021 8:45a [place] Romero Norris MD M54.16 Radiculopathy, lumbar region M25.562 Pain in left knee M47.896 Other spondylosis, lumbar re gion Z96.641 Presence of right artificial hip joint Z68.41 Body mass index [BMI] 40.0-4 4.9, adult Office Visit 04/25/2021 9:30a [place] Brittany Singleton PA-C M18.11 Unil primary osteoarth of first carpometacarp joint, r hand M25.531 Pain in right wrist R20.2 Paresthesia of skin Office Visit 04/06/2021 3:40p [place] Ac Light MD M79.601 Pain in right arm R20.2 Paresthesia of skin M50.322 Other cervical disc degenera tion at C5-C6 level M47.892 Other spondylosis, cervical region Assessments Date Code Description Provider 04/29/2021 M54.16 Radiculopathy, lumbar region Gil Norris MD 04/29/2021 M25.562 Pain in left knee Romero Norris MD 04/29/2021 M47.896 Other spondylosis, lumbar region Romero Norris MD 04/29/2021 Z96.641 Presence of right artificial hip joint Romero Norris MD 04/29/2021 Z68.41 Body mass index [BMI] 40.0-44.9, adult Romero Norris MD 04/25/2021 M18.11 Unilateral primary o steoarthritis of first carpometacarpal joint, right hand Brittany Singleton PA-C 04/25/2021 M25.531 Pain in right wrist Brittany morillo PA-C 04/25/2021 R20.2 Paresthesia of skin Brittany morillo PA-C 04/06/2021 M79.601 Pain in right arm Ac pedroza MD 04/06/2021 R20.2 Paresthesia of skin Ac vyas MD 04/06/2021 M50.322 Other cervical disc degeneration at C5-C6 level Ac Light MD 04/06/2021 M47.892 Other spondylosis, cervical arnold on Ac Light MD Plan of Treatment 04/29/2021 - Romero Norris MD* M54.16 Radiculopathy, lumbar region* Follow up: * in 6-8 weeks for back recheck with a PA * M25.562 Pain in left knee * M47.896 Other spondylosis, lumbar region * Z96.641 Presence of right artificial hip joint * Z68.41 Body mass index [BMI] 40.0-44.9, adult * All * New Medication:* Gabapentin 100 mg - 1-2 cap by mouth three times a day Functional Status Description No Information Available Mental Status Description No Information Available Referrals Refer to Dr Reason for Referral Status Appt Date Roscoe Singleton MD EMG NO AUTH REQUIRED TO SCHEDULING NT Create d [facility], [facility] [address] [place] [address] [phone]
--- OUTSIDE RECORDS SUMMARY | 2021-05-14 19:01 | CCD ---
Author Author Arnel Aysha Crowleywna Organization Unknown Address [address] [place] [address] Phone Care Team Providers Care Commissary Representative Name Role Phone Anjelica Seals PCP Allergies, Adverse Reactions, Alerts Concept Allergy Name Reaction Severity Onset Date Status Documentation Date Phone Number Npid Taxonomy Code Taxonomy Desc Author Last Name Author Laurie rst Name Concept Type [id number] nkda Active 06/21/2018 RXNORM Problem List Concept Problem Description Status Start Date Created Date Resolv ed Date Snomed Code F41.9 Unspecified Anxiety Disorder Active 04/14/2021 F43.12 Post-traumatic stress disorder, chronic Active 04/14/2021 Medications Rx Norm Medication Route Route Concept Start Date Stop Date Dosage Get quency Duration Formula Strength Dosage Form Dosage Form Code Dosage Description Medication Id Account Npid Author First Name Author Last Name Taxonomy Code Taxonomy Desc Phone Number [phone] prazosin by mouth [id number] 11/19/2019 at bedtime 1 mg capsul e 57506 057400 [phone] Roxy Jaime [id number] Psych[facility] [phone] 255362 lithium carbonate by mouth [id number] 03/22/2020 at bedtime 300 mg capsule 97228 [id number] [phone] Roxy [place] [id number] Psychiatric/Mental Health [phone] 510823 buspirone by mouth [id number] 04/19/2020 twice a day 10 [place] 81652 491759 [id number] Roxy [place] [id number] Psychiatric/Mental Health [phone] Social History Social History Element Description Concept Effective Date Smoking Status Unknown if ever smoked [id number] Immunizations No Data in Section Vital Signs No Data in Section Procedures Date Concept Id Description Targeted Site Concept Targeted Site Concept Type 04/14/2021 23519 Extended Individual Psychotherapy - 45 min CPT Patient has no history of implantable de vices Encounters Encounter Start Date End Date Encounter Type Description Diagnosis Di agnosis Desc Location Author First Name Author Last Name Npid Taxonomy Cod e Taxonomy Desc Phone Number Location Addr1 Location Addr2 Location [facility] Location Sta te Location Zip [id number] 04/14/2021 04/14/2021 10255 Extended Individual Psych otherapy - 45 min F41.9 Anxiety Disorder, Unspecified [facility] Arnel Dejesus [id number] Administrative Judge [id number] [address] [address] Plan of Treatment No Data in Section Lab Results No Data in Section Instructions No Data in Section Insurance Providers Insurance Id Policy Effective Date Policy Thru Date Company N claribel [id number] 2020 [employer] - MEDICA ID MANAGED
--- OUTSIDE RECORDS SUMMARY | 2021-05-14 19:01 | CCD ---
Author Author Arnel Aysha Crowleywna Organization Unknown Address [address] [place] [address] Phone Care Team Providers Care Hand Stoner Name Role Phone Anjelica Seals PCP Allergies, Adverse Reactions, Alerts Concept Allergy Name Reaction Severity Onset Date Status Documentation Date Phone Number Npid Taxonomy Code Taxonomy Desc Author Last Name Author Laurie rst Name Concept Type [id number] nkda Active 06/21/2018 RXNORM Problem List Concept Problem Description Status Start Date Created Date Resolv ed Date Snomed Code F41.9 Unspecified Anxiety Disorder Active 03/31/2021 F43.12 Post-traumatic stress disorder, chronic Active 03/31/2021 Medications Rx Norm Medication Route Route Concept Start Date Stop Date Dosage Get quency Duration Formula Strength Dosage Form Dosage Form Code Dosage Description Medication Id Account Npid Author First Name Author Last Name Taxonomy Code Taxonomy Desc Phone Number [phone] prazosin by mouth [id number] 11/19/2019 at bedtime 1 [place]ul e 84128 996081 [phone] Roxy Jaime [id number] Psychiatric/Mental Health [phone] 208936 lithium carbonate by mouth [id number] 03/22/2020 at bedtime 300 mg capsule 75179 074217 [phone] Roxy [place] [id number] Psychiatric/Mental Health [phone] 416226 buspirone by mouth [id number] 04/19/2020 twice a day 10 mg tab [place] 86662 439869 [id number] Roxy [place] [id number] Psychiatric/Mental Health [phone] Social History Social History Element Description Concept Effective Date Smoking Status Unknown if ever smoked [id number] Immunizations No Data in Section Vital Signs No Data in Section Procedures Date Concept Id Description Targeted Site Concept Targeted Site Concept Type 03/31/2021 33846 Psychiatric Diagnostic Evaluation (Non-Medical) CPT Patient has no history of implantable de vices Encounters Encounter Start Date End Date Encounter Type Description Diagnosis Di agnosis Desc Location Author First Name Author Last Name Npid Taxonomy Cod e Taxonomy Desc Phone Number Location Addr1 Location Addr2 Location [facility] Location [facility] Location [facility] [id number] 03/31/2021 03/31/2021 93529 Psychiatric Tita gnostic Evaluation (Non-Medical) F41.9 Anxiety Disorder, Unspecified [facility] [phone] [id number] Budget Report Clerk [id number] [address] [address] Plan of Treatment No Data in Section Lab Results No Data in Section Instructions No Data in Section Insurance Providers Insurance Id Policy Effective Date Policy Thru Date Company N claribel [id number] 2018 [employer] Managed Anthony babb
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
--- OUTSIDE RECORDS SUMMARY | 2021-05-14 19:01 | CCD | Continuity of Care Document ---
Author Author Aysha FRAZIER MD Organization Unknown Address [address] [place] [address] Phone [phone] Care Team Providers Care Acura Sales Consultant Name Role Phone Rip Burton AUTM [phone] Problems Active Problems Provider Date Abrasion, upper [...] Brennan Lam MD 09/03/2020 Fluticasone Propionate Nasal Jewett Aller gy Relief 24- Hour 50mcg/Act Suspension [...] Information Available Procedures Date Code Description Status 04/06/2021 63247 Office/Outpatient New Moderate M DM 45-59 Minutes Completed 04/06/2021 71438 Nerve Conduction 9-10 Studies Co mpleted 04/06/2021 44326 Needle Electromyography,Complete Five Or More Muscles Studied Completed Medical Devices Description No Information Available Encounters Type Date Location Provider Dx Diagnosis Office Visit 04/06/2021 3:40p [facility] Ac Frazier MD M79.601 Pain in right arm R20.2 Paresthesia of skin M50.322 Other cervical disc degenera tion at C5-C6 level M47.892 Other spondylosis, cervical region Assessments Date Code Description Provider 04/06/2021 M79.601 Pain in right arm Ac pedroza MD 04/06/2021 R20.2 Paresthesia of skin Ac vyas MD 04/06/2021 M50.322 Other cervical disc degeneration at C5-C6 level Ac Frazier MD 04/06/2021 M47.892 Other spondylosis, cervical arnold on cA Frazier MD Plan of Treatment Future Appointment(s):* 04/25/2021 9:30 am - Brittany Singleton PA-C at [facility] * 05/06/2021 8:00 am - Romero Alaniz MD at [facility] 04/06/2021 - Ac Frazier MD* M79.601 Pain in right arm * R20.2 Paresthesia of skin * M50.322 Other cervical disc degeneration at C5-C6 level* Follow up:* after EMG results with [facility] * M47.892 Other spondylosis, cervical region Functional Status Description No Information Available Mental Status Description No Information Available Referrals Refer to Reason for Referral Status Appt Date Roscoe Singleton MD EMG NO AUTH REQUIRED TO SCHEDULING NT Create d [facility], [address] [place] [address] [phone]
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
--- OUTSIDE RECORDS SUMMARY | 2021-05-14 19:01 | CCD | Continuity of Care Document ---
Author Author Aysha NORRIS MD Organization Unknown Address [address] [place] [address] Phone [phone] Care Team Providers Care Nascar Driver Name Role Phone Rip Burton AUTM [phone] Problems Active Problems Provider Date Abrasion, upper [...] DClive Lam MD 09/03/2020 Fluticasone Propionate Nasal [place] Aller gy Relief 24- Hour 50mcg/Act Suspension [...] Available Procedures Date Code Description Status 04/29/2021 56047 Office/Outpatient Established Mo d MDM 30-39 Min Completed 04/29/2021 22145 X-Ray Hip Unilateral With Pelvis 2-3 Views Completed 04/29/2021 12463 X-Ray Spine Lumbosacral Complete Inc Bending Views Min Of 6 Completed 04/25/2021 49246 Office/Outpatient Established Lo w MDM 20-29 Min Completed 04/06/2021 29372 Office/Outpatient New Moderate M DM 45-59 Minutes Completed 04/06/2021 63513 Nerve Conduction 9-10 Studies Co mpleted 04/06/2021 92039 Needle Electromyography,Complete Five Or More Muscles Studied Completed Medical Devices Description No Information Available Encounters Type Date Location Provider Dx Diagnosis Office Visit 04/29/2021 8:45a [place] Romero Norris MD M47.26 Other spondylosis with radiculopathy, lumbar region M25.561 Pain in right knee Z96.642 Presence of left artificial hip joint Z68.41 Body mass index [BMI] 40.0-4 4.9, adult Office Visit 04/25/2021 9:30a [place] Brittany Singleton PA-C M18.11 Unil primary osteoarth of first carpometacarp joint, r hand M25.531 Pain in right wrist R20.2 Paresthesia of skin Office Visit 04/06/2021 3:40p [place] Ac Light MD M79.601 Pain in right arm R20.2 Paresthesia of skin M50.322 Other cervical disc degenera tion at C5-C6 level M47.892 Other spondylosis, cervical region Assessments Date Code Description Provider 04/29/2021 M47.26 Other spondylosis with radiculop athy, lumbar region Romero Norris MD 04/29/2021 M25.561 Pain in right knee Romero morrison MD 04/29/2021 Z96.642 Presence of left artificial hip joint Romero Norris MD 04/29/2021 [...] Light MD Plan of Treatment Future Appointment(s):* 06/14/2021 8:30 am - [facility] at [place] 04/29/2021 - Romero Norris MD* M47.26 Other spondylosis with radiculopathy, lumbar region * M25.561 Pain in right knee * Z96.642 Presence of left artificial hip joint * Z68.41 Body mass index [BMI] 40.0-44.9, adult* Follow up:* in 6-8 weeks for back recheck with a PA * All * New Medication:* Gabapentin 100 mg - 1-2 cap by mouth three times a day Functional Status Description No Information Available Mental Status Description No Information Available Referrals Refer to Reason for Referral Status Appt Date Roscoe Singleotn MD EMG NO AUTH REQUIRED TO SCHEDULING NT Create d [address] [facility], [address] [place] [address] [phone]
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
--- OUTSIDE RECORDS SUMMARY | 2021-05-14 19:01 | CCD | Continuity of Care Document ---
Author Author Aysha FRAZIER MD Organization Unknown Address [address] [place] [address] Phone [phone] Care Team Providers Care Dry Mop Maker Name Role Phone Rip Burton AUTM [phone] Problems Active Problems Provider Date Abrasion, upper [...] Brennan Lam MD 09/03/2020 Fluticasone Propionate Nasal [place] Aller gy Relief 24- Hour 50mcg/Act Suspension [...] kg/m2 Results Description No Information Available Procedures Description No Information Available Medical Devices Description No Information Available Encounters Description No Information Available Assessments Date Code Description Provider 04/06/2021 M50.322 Other cervical disc degeneration at C5-C6 level Ac Frazier MD 04/06/2021 M47.892 Other spondylosis, cervical arnold on Ac Frazier MD 04/06/2021 R20.2 Paresthesia of skin Ac vyas MD Plan of Treatment Future Appointment(s):* 05/06/2021 8:00 am - Romero Alaniz MD at [facility] 04/06/2021 - Ac Frazier MD* M50.322 Other cervical disc degeneration at C5-C6 level* Follow up:* after EMG results with [facility] * M47.892 Other spondylosis, cervical region * R20.2 Paresthesia of skin Functional Status Description No Information Available Mental Status Description No Information Available Referrals Refer to Dr Reason for Referral Status Appt Date Roscoe Singleton MD EMG NO AUTH REQUIRED TO SCHEDULING NT Create d [address] [place] [address], [address] [place] [address] [phone]
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
--- OUTSIDE RECORDS SUMMARY | 2021-05-14 19:01 | CCD | Continuity of Care Document ---
Author Author Aysha DUMONT PA-C Organization Unknown Address [address] [place] [address] Phone [phone] Care Team Providers Care Vp Marketing Name Role Phone Rip Burton AUTM [phone] Problems Active Problems Provider Date Abrasion, upper [...] mouth three times a day 90caps Romero Alaniz MD 04/29/2021 Diclofenac Sodium 1% Gel Apply 1 Gram Topically To Affected Areas On Hands 3 Times A Day as Directed 100units M19.031 DClive Lam MD 09/03/2020 Fluticasone Propionate Nasal [place] Aller gy Relief 24- Hour 50mcg/Act Suspension [...] Available Procedures Date Code Description Status 04/29/2021 96700 Office/Outpatient Established Mo d MDM 30-39 Min Completed 04/29/2021 36481 X-Ray Hip Unilateral With Pelvis 2-3 Views Completed 04/29/2021 78475 X-Ray Spine Lumbosacral Complete Inc Bending Views Min Of 6 Completed 04/29/2021 93796 X-Ray Spine Cervical 6 Or More V iews Completed 04/25/2021 50409 Office/Outpatient Established Lo w MDM 20-29 Min Completed 04/06/2021 29470 Office/Outpatient New Moderate M DM 45-59 Minutes Completed 04/06/2021 19992 Nerve Conduction 9-10 Studies Co mpleted 04/06/2021 04043 Needle Electromyography,Complete Five Or More Muscles Studied Completed Medical Devices Description No Information Available Encounters Type Date Location Provider Dx Diagnosis Office Visit 04/29/2021 8:45a [facility] Romero Alaniz MD M54.16 Radiculopathy, lumbar region M25.562 Pain in left knee M47.896 Other spondylosis, lumbar re gion Z96.641 Presence of right artificial hip joint Z68.41 Body mass index [BMI] 40.0-4 4.9, adult Office Visit 04/25/2021 9:30a [facility] Brittany Dumont PA-C M18.11 Unil primary osteoarth of first carpometacarp joint, r hand M25.531 Pain in right wrist R20.2 Paresthesia of skin Office Visit 04/06/2021 3:40p [place] Ac Light MD M79.601 Pain in right arm R20.2 Paresthesia of skin M50.322 Other cervical disc degenera tion at C5-C6 level M47.892 Other spondylosis, cervical region Assessments Date Code Description Provider 04/29/2021 M54.16 Radiculopathy, lumbar region Gil Alaniz MD 04/29/2021 M25.562 Pain in left knee Romero Alaniz MD 04/29/2021 M47.896 Other spondylosis, lumbar region Romero Alaniz MD 04/29/2021 Z96.641 Presence of right artificial hip joint Romero Alaniz MD 04/29/2021 Z68.41 Body mass index [BMI] 40.0-44.9, adult Romero Alaniz MD 04/25/2021 M18.11 Unilateral primary o steoarthritis of first carpometacarpal joint, right hand Brittany Dumont PA-C 04/25/2021 M25.531 Pain in right wrist Brittany L. Fis h, PA-C 04/25/2021 R20.2 Paresthesia of skin Brittany morillo PA-C 04/06/2021 M79.601 Pain in right arm Ac pedroza MD 04/06/2021 R20.2 Paresthesia of skin Ac vyas MD 04/06/2021 M50.322 Other cervical disc degeneration at C5-C6 level Ac Light MD 04/06/2021 M47.892 Other spondylosis, cervical arnold on Ac Light MD Plan of Treatment Future Appointment(s):* 06/14/2021 8:30 am - [facility] at [facility] 04/29/2021 - Romero Alaniz MD* M54.16 Radiculopathy, lumbar region* Follow up: [...] AUTH REQUIRED TO SCHEDULING NT Create d [facility], [facility] [address] [place] [address] [phone]
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
--- OUTSIDE RECORDS SUMMARY | 2021-05-14 19:03 | CCD ---
Author Author [facility] Organization [facility] Address Unknown Phone Unavailable Care Team Providers Care Fingerprint Clerk Name Role Phone Riley Montez MD Unavailable Unavailable Riley Montez MD Unavailable Unavailable Riley Montez MD Unavailable Unavailable Riley Montez MD Unavailable Unavailable Riley Montez MD Unavailable Unavailable Riley Montez MD Unavailable Unavailable Riley Montez MD Unavailable Unavailable Riley Montez MD Unavailable Unavailable Riley Montez MD Unavailable Unavailable Riley Montez MD Unavailable Unavailable Riley Montez MD Unavailable Unavailable Riley Montez MD Unavailable Unavailable Riley Montez MD Unavailable Unavailable Riley Montez MD Unavailable Unavailable Dombek-Lang, V Araceli MD Unavailable Unavailable Dombek-Lang, V Araceli MD Unavailable Unavailable Dombek-Lang, V Araceli MD Unavailable Unavailable Dombek-Lang, V Araceli MD Unavailable Unavailable Dombek-Lang, V Araceli MD Unavailable Unavailable Dombek-Lang, V Araceli MD Unavailable Unavailable Dombek-Lang, V Araceli MD Unavailable Unavailable Dombek-Lang, V Araceli MD Unavailable Unavailable Dombek-Lang, V Araceli MD Unavailable Unavailable Dombek-Lang, V Araceli MD Unavailable Unavailable Dombek-Lang, V Araceli MD Unavailable Unavailable Dombek-Lang, V Araceli MD Unavailable Unavailable Dombek-Lang, V Araceli MD Unavailable Unavailable Dombek-Lang, V Araceli MD Unavailable Unavailable Dombek-Lang, V Araceli MD Unavailable Unavailable Dombek-Lang, V Araceli MD Unavailable Unavailable Dombek-Lang, V Araceli MD Unavailable Unavailable Dombek-Lang, V Araceli MD Unavailable Unavailable Dombek-Lang, V Araceli MD Unavailable Unavailable Dombek-Lang, V Araceli MD Unavailable Unavailable Dombek-Lang, V Araceli MD Unavailable Unavailable Dombek-Lang, V Araceli MD Unavailable Unavailable Dombek-Lang, V Araceli MD Unavailable Unavailable Dombek-Lang, V Araceli MD Unavailable Unavailable Dombek-Lang, V Araceli MD Unavailable Unavailable Oliverio Alba PA Unavailable Unavailable Oliverio Alba PA Unavailable Unavailable Oliverio Alba PA Unavailable Unavailable Oliverio Alba PA Unavailable Unavailable Oliverio Alba PA Unavailable Unavailable Oliverio Alba PA Unavailable Unavailable Oliverio Alba PA Unavailable Unavailable Oliverio Alba PA Unavailable Unavailable Oliverio Alba PA Unavailable Unavailable Oliverio Alba PA Unavailable Unavailable Oliverio Alba PA Unavailable Unavailable Oliverio Alba PA Unavailable Unavailable Oliverio Alba PA Unavailable Unavailable Oliverio Alba PA Unavailable Unavailable Oliverio Alba PA Unavailable Unavailable Oliverio Alba PA Unavailable Unavailable Oliverio Alba PA Unavailable Unavailable Oliverio Alba PA Unavailable Unavailable Oliverio Alba PA Unavailable Unavailable Oliverio Alba PA Unavailable Unavailable [place], Oliverio ASKEW Unavailable Unavailable [place], Oliverio ASKEW Unavailable Unavailable WILLA, Fernie CHAU Unavailable Unavailable CANELA, RODRIGO DELGADOA Unavailable Unavailable MILEY, DELGADO CHARGEMASTER ANALYST Unavailable Unavailable MILEY, DELGADO CHARGEMASTER ANALYST Unavailable Unavailable MILEY, DELGADO CHARGEMASTER ANALYST Unavailable Unavailable MILEY, DELGADO CHARGEMASTER ANALYST Unavailable Unavailable MILEY, DELGADO CHARGEMASTER ANALYST Unavailable Unavailable MILEY, DELGADO CHARGEMASTER ANALYST Unavailable Unavailable MILEY, DELGADO CHARGEMASTER ANALYST Unavailable Unavailable CANELA, Oliverio DUCKWORTH MD Unavailable Unavailable CANELA, Oliverio DUCKWORTH MD Unavailable Unavailable CANELA, Oliverio DUCKWORTH MD Unavailable Unavailable CANELA, Oliverio DUCKWORTH MD Unavailable Unavailable CANELA, Oliverio DUCKWORTH MD Unavailable Unavailable CANELA, Oliverio DUCKWORTH MD Unavailable Unavailable CANELA, Oliverio DUCKWORTH MD Unavailable Unavailable CANELA, Oliverio DUCKWORTH MD Unavailable Unavailable CANELA, Oliverio DUCKWORTH MD Unavailable Unavailable AMANDA, A JOSE ALFREDO PA [...] AMANDA, A JOSE ALFREDO PA Unavailable Unavailable OAKLEY, R NAVI CHARGEMASTER ANALYST Unavailable Unavailable OAKLEY, R NAVI CHARGEMASTER ANALYST Unavailable Unavailable OAKLEY, R NAVI CHARGEMASTER ANALYST Unavailable Unavailable OAKLEY, R NAVI CHARGEMASTER ANALYST Unavailable Unavailable OAKLEY, R NAVI CHARGEMASTER ANALYST Unavailable Unavailable OAKLEY, R NAVI CHARGEMASTER ANALYST Unavailable Unavailable OAKLEY, R NAVI CHARGEMASTER ANALYST Unavailable Unavailable OAKLEY, R NAVI CHARGEMASTER ANALYST Unavailable Unavailable OAKLEY, R NAVI CHARGEMASTER ANALYST Unavailable Unavailable OAKLEY, R NAVI CHARGEMASTER ANALYST Unavailable Unavailable OAKLEY, R NAVI CHARGEMASTER ANALYST Unavailable Unavailable OAKLEY, R NAVI CHARGEMASTER ANALYST Unavailable Unavailable OAKLEY, R NAVI CHARGEMASTER ANALYST Unavailable Unavailable OAKLEY, R NAVI CHARGEMASTER ANALYST Unavailable Unavailable OAKLEY, R NAVI CHARGEMASTER ANALYST Unavailable Unavailable OAKLEY, R NAVI CHARGEMASTER ANALYST Unavailable Unavailable OAKLEY, R NAVI CHARGEMASTER ANALYST Unavailable Unavailable OAKLEY, R NAVI CHARGEMASTER ANALYST Unavailable Unavailable OAKLEY, R NAVI CHARGEMASTER ANALYST Unavailable Unavailable OAKLEY, R NAVI CHARGEMASTER ANALYST Unavailable Unavailable OAKLEY, R NAVI CHARGEMASTER ANALYST Unavailable Unavailable OAKLEY, R NAVI CHARGEMASTER ANALYST Unavailable Unavailable OAKLEY, R NAVI CHARGEMASTER ANALYST Unavailable Unavailable OAKLEY, R NAVI CHARGEMASTER ANALYST Unavailable Unavailable OAKLEY, R NAVI CHARGEMASTER ANALYST Unavailable Unavailable OAKLEY, R NAVI CHARGEMASTER ANALYST Unavailable Unavailable OAKLEY, R NAVI CHARGEMASTER ANALYST Unavailable Unavailable OAKLEY, R NAVI CHARGEMASTER ANALYST Unavailable Unavailable OAKLEY, R NAVI CHARGEMASTER ANALYST Unavailable Unavailable OAKLEY, R NAVI CHARGEMASTER ANALYST Unavailable Unavailable OAKLEY, R NAVI CHARGEMASTER ANALYST Unavailable Unavailable OAKLEY, R NAVI CHARGEMASTER ANALYST Unavailable Unavailable OAKLEY, R NAVI CHARGEMASTER ANALYST Unavailable Unavailable OAKLEY, R NAVI CHARGEMASTER ANALYST Unavailable Unavailable OAKLEY, R NAVI CHARGEMASTER ANALYST Unavailable Unavailable OAKLEY, R NAVI CHARGEMASTER ANALYST Unavailable Unavailable OAKLEY, R NAVI CHARGEMASTER ANALYST Unavailable Unavailable OAKLEY, R NAVI CHARGEMASTER ANALYST Unavailable Unavailable OAKLEY, R NAVI CHARGEMASTER ANALYST Unavailable Unavailable OAKLEY, R NAVI CHARGEMASTER ANALYST Unavailable Unavailable OAKLEY, R NAVI CHARGEMASTER ANALYST Unavailable Unavailable OAKLEY, R NAVI CHARGEMASTER ANALYST Unavailable Unavailable OAKLEY, R NAVI CHARGEMASTER ANALYST Unavailable Unavailable OAKLEY, R NAVI CHARGEMASTER ANALYST Unavailable Unavailable Alaniz, Sarah Jasso MD Unavailable Unavailable Alaniz, Sarah Jasso MD Unavailable Unavailable Alaniz, Sarah Jasso MD Unavailable Unavailable Alaniz, Sarah Jasso MD Unavailable Unavailable Alaniz, Sarah Jasso MD Unavailable Unavailable Alaniz, Sarah Jasso MD Unavailable Unavailable Alaniz, Sarah Jasso MD Unavailable Unavailable Alaniz, Sarah Jasso MD Unavailable Unavailable Alaniz, Sarah Jasso MD Unavailable Unavailable Alaniz, Sarah Jasso MD Unavailable Unavailable Alaniz, Sarah Jasso MD Unavailable Unavailable Alaniz, Sarah Jasso MD Unavailable Unavailable Alaniz, Sarah Jasso MD Unavailable Unavailable Alaniz, Sarah Jasso MD Unavailable Unavailable Alaniz, Sarah Jasso MD Unavailable Unavailable Alaniz, Sarah Jasso MD Unavailable Unavailable Alaniz, Saarh Jasso MD Unavailable Unavailable Alaniz, Sarah Jasso MD Unavailable Unavailable Alaniz, Sarah Jasso MD Unavailable Unavailable Alaniz, Sarah Jasso MD Unavailable Unavailable Alaniz, Sarah Jasso MD Unavailable Unavailable Alaniz, Sarah Jasso MD Unavailable Unavailable Alaniz, Sarah Jasso MD Unavailable Unavailable Alaniz, Sarah Jasso MD Unavailable Unavailable Alaniz, Sarah Jasso MD Unavailable Unavailable Alaniz, Sarah Jasso MD Unavailable Unavailable Alaniz, Sarah Jasso MD Unavailable Unavailable Alaniz, Sarah Jasso MD Unavailable Unavailable Alaniz, Sarah Jasso MD Unavailable Unavailable Alaniz, Sarah Jasso MD Unavailable Unavailable Alaniz, Sarah Jasso MD Unavailable Unavailable Alaniz, Sarah Jasso MD Unavailable Unavailable Alaniz, Sarah Jasso MD Unavailable Unavailable Alanzi, L Romero MD Unavailable Unavailable AlanizSarah hoffman MD Unavailable Unavailable Sarah Alaniz MD Unavailable Unavailable Sarah Alaniz MD Unavailable Unavailable Sarah Alaniz MD Unavailable Unavailable Sarah Alaniz MD Unavailable Unavailable Sarah Alainz MD Unavailable Unavailable Sarah Alaniz MD Unavailable Unavailable Sarah Alaniz MD Unavailable Unavailable Sarah Alaniz MD Unavailable Unavailable Sarah Alaniz MD Unavailable Unavailable Sarah Alaniz MD Unavailable Unavailable AlanizSarah MD Unavailable Unavailable AlanizSarah MD Unavailable Unavailable AlanizSarah MD Unavailable Unavailable AlanizSarah MD Unavailable Unavailable Sarah Alaniz MD Unavailable Unavailable SYMENOW, G CHRISTOPHER PA [...] Unavailable SYMENOW, G CHRISTOPHER PA Unavailable Unavailable Ish, M Sandra PA-C Unavailable Unavailable Ish, M Sandra PA-C Unavailable Unavailable Ish, M Sandra PA-C Unavailable Unavailable Ish, M Sandra PA-C Unavailable Unavailable Ish, M Sandra PA-C Unavailable Unavailable Ish, M Sandra PA-C Unavailable Unavailable Ish, M Sandra PA-C Unavailable Unavailable Ish, M Sandra PA-C Unavailable Unavailable Ish, M Sandra PA-C Unavailable Unavailable Ish, M Sandra PA-C Unavailable Unavailable Ish, M Sandra PA-C Unavailable Unavailable Ish, M Sandra PA-C Unavailable Unavailable Ish, M Sandra PA-C Unavailable Unavailable Ish, M Sandra PA-C Unavailable Unavailable Ish, M Sandra PA-C Unavailable Unavailable Ish, M Sandra PA-C Unavailable Unavailable Ish, M Sandra PA-C Unavailable Unavailable Ish, M Sandra PA-C Unavailable Unavailable Ish, M Sandra PA-C Unavailable Unavailable Ish, M Sandra PA-C Unavailable Unavailable Ish, M Sandra PA-C Unavailable Unavailable Ish, M Sandra PA-C Unavailable Unavailable Ish, M Sandra PA-C Unavailable Unavailable Ish, M Sandra PA-C Unavailable Unavailable Ish, M Sandra PA-C Unavailable Unavailable Ish, M Sandra PA-C Unavailable Unavailable Ish, M Sandra PA-C Unavailable Unavailable Ish, M Sandra PA-C Unavailable Unavailable Ish, M Sandra PA-C Unavailable Unavailable Ish, M Sandra PA-C Unavailable Unavailable Ish, M Sandra PA-C Unavailable Unavailable Ish, M Sandra PA-C Unavailable Unavailable Ish, M Sandra PA-C Unavailable Unavailable Ish, M Sandra PA-C Unavailable Unavailable Ish, M Sandra PA-C Unavailable Unavailable Ish, M Sandra PA-C Unavailable Unavailable Fernie GROVES MD Unavailable Unavailable Fernie GROVES MD Unavailable Unavailable Fernie GROVES MD Unavailable Unavailable Fernie GROVES MD Unavailable Unavailable Fernie GROVES MD Unavailable Unavailable Fernie GROVES MD Unavailable Unavailable Fernie GROVES MD Unavailable Unavailable Fernie GROVES MD Unavailable Unavailable Fernie GROVES MD Unavailable Unavailable Fernie GROVES MD Unavailable Unavailable Fernie GROVES MD Unavailable Unavailable Fernie GROVES MD Unavailable Unavailable Fernie GROVES MD Unavailable Unavailable Fernie GROVES MD Unavailable Unavailable Fernie GROVES MD Unavailable Unavailable Fernie GROVES MD Unavailable Unavailable Fernie GROVES MD Unavailable Unavailable Fernie GROVES MD Unavailable Unavailable Fernie GROVES MD Unavailable Unavailable Fernie GROVES MD Unavailable Unavailable Fernie GROVES MD Unavailable Unavailable Fernie GROVES MD Unavailable Unavailable Fernie GROVES MD Unavailable Unavailable Fernie GROVES MD Unavailable Unavailable Fernie GROVES MD Unavailable Unavailable Fernie GROVES MD Unavailable Unavailable Fernie GROVES MD Unavailable Unavailable Fernie GROVES MD Unavailable Unavailable Fernie GROVES MD Unavailable Unavailable Fernie GROVES MD Unavailable Unavailable Fernie GROVES MD Unavailable Unavailable GROVES, A DESI MD [...] Unavailable GROVES, A DESI MD Unavailable [facility]available [facility] [place] Unavailable Unavailable Ting, Reginah W Caitie CARTON COUNTER FEEDER-C Unavailable Unavailabl e Ting, Serginayisel W Caitie CARTON COUNTER FEEDER-C Unavailable Unavailabl e Ting, Serginayisel W Caitie CARTON COUNTER FEEDER-C Unavailable Unavailabl e Ting, Edda W Caitie CARTON COUNTER FEEDER-C Unavailable Unavailabl e Ting, Edda W Caitie CARTON COUNTER FEEDER-C Unavailable Unavailabl e Ting, Reginayisel W Caitie CARTON COUNTER FEEDER-C Unavailable Unavailabl e Ting, Edda W Caitie CARTON COUNTER FEEDER-C Unavailable Unavailabl e Ting, Edda W Caitie CARTON COUNTER FEEDER-C Unavailable Unavailabl e Ting, Serginayisel W Caitie CARTON COUNTER FEEDER-C Unavailable Unavailabl e Ting, Edda W Caitie CARTON COUNTER FEEDER-C Unavailable Unavailabl e Ting, Edda W Caitie CARTON COUNTER FEEDER-C Unavailable Unavailabl e Ting, Edda W Caitie CARTON COUNTER FEEDER-C Unavailable Unavailabl e Ting, Edda W Caitie CARTON COUNTER FEEDER-C Unavailable Unavailabl e Ting, Edda W Caitie CARTON COUNTER FEEDER-C Unavailable Unavailabl e Ting, Edda W Caitie CARTON COUNTER FEEDER-C Unavailable Unavailabl e Ting, Edda W Caitie CARTON COUNTER FEEDER-C Unavailable Unavailabl e Ting, Edda W Caitie CARTON COUNTER FEEDER-C Unavailable Unavailabl e Ting, Edda W Caitie CARTON COUNTER FEEDER-C Unavailable Unavailabl e Ting, Regmimi W Caitie CARTON COUNTER FEEDER-C Unavailable Unavailabl e Ting, Regmimi W Caitie CARTON COUNTER FEEDER-C Unavailable Unavailabl e Ting, Reginayisel W Caitie CARTON COUNTER FEEDER-C Unavailable Unavailabl e Ting, Regina W Caitie CARTON COUNTER FEEDER-C Unavailable Unavailabl e Ting, Reginayisel W Caitie CARTON COUNTER FEEDER-C Unavailable Unavailabl e Ting, Regmimi W Caitie CARTON COUNTER FEEDER-C Unavailable Unavailabl e Ting, Regtamar W Caitie CARTON COUNTER FEEDER-C Unavailable Unavailabl e Ting, Regina W Caitie CARTON COUNTER FEEDER-C Unavailable Unavailabl e Ting, Regina W Caitie CARTON COUNTER FEEDER-C Unavailable Unavailabl e Ting, Regtamarh W Caitie CARTON COUNTER FEEDER-C Unavailable Unavailabl e Ting, Regtamarh W Caitie CARTON COUNTER FEEDER-C Unavailable Unavailabl e Ting, Reginah W Caitie CARTON COUNTER FEEDER-C Unavailable Unavailabl e Ting, Reginah W Caitie CARTON COUNTER FEEDER-C Unavailable Unavailabl e Ting, Reginah W Caitie CARTON COUNTER FEEDER-C Unavailable Unavailabl e GARRETT, ANNABELLA PA Unavailable Unavailable GARRETT, ANNABELLA PA Unavailable Unavailable GARRETT, ANNABELLA PA Unavailable Unavailable GARRETT, ANNABELLA PA Unavailable Unavailable GARRETT, ANNABELLA PA Unavailable Unavailable GARRETT, ANNABELLA PA Unavailable Unavailable GARRETT, ANNABELLA PA Unavailable Unavailable GARRETT, ANNABELLA PA Unavailable Unavailable GARRETT, ANNABELLA PA Unavailable Unavailable GARRETT, ANNABELLA PA Unavailable Unavailable GARRETT, ANNABELLA PA Unavailable Unavailable GARRETT, ANNABELLA PA Unavailable Unavailable GARRETT, ANNABELLA PA Unavailable Unavailable GARRETT, ANNABELLA PA Unavailable Unavailable GARRETT, ANNABELLA PA Unavailable Unavailable DAVID CHOE JR Unavailable [phone] DAVID CHOE JR Unavailable [phone] DAVID CHOE JR Unavailable [phone] TATONE, RADHA PA Unavailable Unavailable TATONE, RADHA PA Unavailable Unavailable TATONE, RADHA PA Unavailable Unavailable TATONE, RADHA PA Unavailable Unavailable TATONE, RADHA PA Unavailable Unavailable TATONE, RADHA PA Unavailable Unavailable TATONE, RADHA PA Unavailable Unavailable TATONE, RADHA PA Unavailable Unavailable TATONE, RADHA PA Unavailable Unavailable TATONE, RADHA PA Unavailable Unavailable TATONE, RADHA PA Unavailable Unavailable TATONE, RADHA PA Unavailable Unavailable TATONE, RADHA PA Unavailable Unavailable TATONE, RADHA PA Unavailable Unavailable TATONE, RADHA PA Unavailable Unavailable TATONE, RADHA PA Unavailable Unavailable TATONE, RADHA PA Unavailable Unavailable TATONE, RADHA PA Unavailable Unavailable TATONE, RADHA PA Unavailable Unavailable TATONE, RADHA PA Unavailable Unavailable TATONE, RADHA PA Unavailable Unavailable TATONE, RADHA PA Unavailable Unavailable TATONE, RADHA PA Unavailable Unavailable TATONE, RADHA PA Unavailable Unavailable Seo, P Nick PA [...] Unavailable Seo, P Nick PA Unavailable Unavailable Willa Otilia Unavailable [phone] Otilia Crouch Unavailable [phone] RODRIGO PEREZ Unavailable Unavailable Gabriel Ball Unavailable [phone] Gabriel Ball Unavailable [phone] Gabriel Ball Unavailable [phone] Gabriel Ball Unavailable [phone] Gabriel Ball Unavailable [phone] Gabriel Ball Unavailable [phone] Sarah VENTURA PA Unavailable Unavailable Sarah VENTURA PA Unavailable Unavailable Sarah VENTURA PA Unavailable Unavailable Sarah VENTURA PA Unavailable Unavailable LORENZO, L SHERI PA Unavailable Unavailable LORENZO, L SHERI PA Unavailable Unavailable LORENZO, L SHERI PA Unavailable Unavailable LORENZO, L SHERI PA Unavailable Unavailable LORENZO, L SHERI PA Unavailable Unavailable LORENZO, L SHERI PA Unavailable Unavailable LORENZO, L SHERI PA Unavailable Unavailable LORENZO, L SHERI PA Unavailable Unavailable LORENZO, L SHERI PA Unavailable Unavailable LORENZO, L SHERI PA Unavailable Unavailable LORENZO, L SHERI PA Unavailable Unavailable LORENZO, L SHERI PA Unavailable Unavailable LORENZO, L SHERI PA Unavailable Unavailable LORENZO, L SHERI PA Unavailable Unavailable LORENZO, L SHERI PA Unavailable Unavailable LORENZO, L SHERI PA Unavailable Unavailable LORENZO, L SHERI PA Unavailable Unavailable LORENZO, L SHERI PA Unavailable Unavailable Yeni, K Roxy PMH-CHARGEMASTER ANALYST Unavailable Unavailable [place], K Roxy PMH-CHARGEMASTER ANALYST Unavailable Unavailable Yeni, K Roxy PMH-CHARGEMASTER ANALYST Unavailable Unavailable [place], K Roxy PMH-CHARGEMASTER ANALYST Unavailable Unavailable [place], K Roxy PMH-CHARGEMASTER ANALYST Unavailable Unavailable [place], K Roxy PMH-CHARGEMASTER ANALYST Unavailable Unavailable [place], K Roxy PMH-CHARGEMASTER ANALYST Unavailable Unavailable [place], K Roxy PMH-CHARGEMASTER ANALYST Unavailable Unavailable Edilberto, A Sandra CARTON COUNTER FEEDER Unavailable Unavailable Edilberto, A Sandra CARTON COUNTER FEEDER Unavailable Unavailable Edilberto, A Sandra CARTON COUNTER FEEDER Unavailable Unavailable Edilberto, A Sandra CARTON COUNTER FEEDER Unavailable Unavailable Edilberto, A Sandra CARTON COUNTER FEEDER Unavailable Unavailable Edilberto, A Sandra CARTON COUNTER FEEDER Unavailable Unavailable Edilberto, A Sandra CARTON COUNTER FEEDER Unavailable Unavailable Edilberto, A Sandra CARTON COUNTER FEEDER Unavailable Unavailable Edilberto, A Sandra CARTON COUNTER FEEDER Unavailable Unavailable Edilberto, A Sandra CARTON COUNTER FEEDER Unavailable Unavailable Edilberto, A Sandra CARTON COUNTER FEEDER Unavailable Unavailable Edilberto, A Sandra CARTON COUNTER FEEDER Unavailable Unavailable Edilberto, A Sandra CARTON COUNTER FEEDER Unavailable Unavailable Edilberto, A Sandra CARTON COUNTER FEEDER Unavailable Unavailable Edilberto, A Sandra CARTON COUNTER FEEDER Unavailable Unavailable Edilberto, A Sandra CARTON COUNTER FEEDER Unavailable Unavailable Edilberto, A Sandra CARTON COUNTER FEEDER Unavailable Unavailable Edilberto, A Sandra CARTON COUNTER FEEDER Unavailable Unavailable Edilberto, A Sandra CARTON COUNTER FEEDER Unavailable Unavailable Edilberto, A Sandra CARTON COUNTER FEEDER Unavailable Unavailable Edilberto, A Sandra CARTON COUNTER FEEDER Unavailable Unavailable Edilberto, A Sandra CARTON COUNTER FEEDER Unavailable Unavailable Edilberto, A Sandra CARTON COUNTER FEEDER Unavailable Unavailable Edilberto, A Sandra CARTON COUNTER FEEDER Unavailable Unavailable Edilberto, A Sandra CARTON COUNTER FEEDER Unavailable Unavailable Edilberto, A Sandra CARTON COUNTER FEEDER Unavailable Unavailable Edilberto, A Sandra CARTON COUNTER FEEDER Unavailable Unavailable Edilberto, A Sandra CARTON COUNTER FEEDER Unavailable Unavailable Edilberto, A Sandra CARTON COUNTER FEEDER Unavailable Unavailable Edilberto, A Sandra CARTON COUNTER FEEDER Unavailable Unavailable Edilberto, A Sandra CARTON COUNTER FEEDER Unavailable Unavailable Edilberto, A Sandra CARTON COUNTER FEEDER Unavailable Unavailable Edilberto, A Sandra CARTON COUNTER FEEDER Unavailable Unavailable Edilberto, A Sandra CARTON COUNTER FEEDER Unavailable Unavailable Edilberto, A Sandra CARTON COUNTER FEEDER Unavailable Unavailable Edilberto, A Sandra CARTON COUNTER FEEDER Unavailable Unavailable Edilberto, A Sandra CARTON COUNTER FEEDER Unavailable Unavailable Edilberto, A Sandra CARTON COUNTER FEEDER Unavailable Unavailable Edilberto, A Sandra CARTON COUNTER FEEDER Unavailable Unavailable Edilberto, A Sandra CARTON COUNTER FEEDER Unavailable Unavailable Edilberto, A Sandra CARTON COUNTER FEEDER Unavailable Unavailable Edilberto, A Sandra CARTON COUNTER FEEDER Unavailable Unavailable Edilberto, A Sandra CARTON COUNTER FEEDER Unavailable Unavailable Edilberto, A Sandra CARTON COUNTER FEEDER Unavailable Unavailable Edilberto, A Sandra CARTON COUNTER FEEDER Unavailable Unavailable Edilberto, A Sandra CARTON COUNTER FEEDER Unavailable Unavailable Edilberto, A Sandra CARTON COUNTER FEEDER Unavailable Unavailable Edilberto, A Sandra CARTON COUNTER FEEDER Unavailable Unavailable Edilberto, A Sandra CARTON COUNTER FEEDER Unavailable Unavailable Edilberto, A Sandra CARTON COUNTER FEEDER Unavailable Unavailable Edilberto, A Sandra CARTON COUNTER FEEDER Unavailable Unavailable Edilberto, A Sandra CARTON COUNTER FEEDER Unavailable Unavailable CHANLIECKYMBERLY, Ketty ARREDONDO MD Unavailable Unavailable CHANLIECCOKetty MD Unavailable Unavailable CHANLIECCOKetty MD Unavailable Unavailable CHANLIECCOKetty MD Unavailable Unavailable CHANLIECCOKetty MD Unavailable Unavailable CHANLIECCOKetty MD Unavailable Unavailable CHANLIECCOKetty MD Unavailable Unavailable CHANLIECCOKetty MD Unavailable Unavailable CHANLIECCOKetty MD Unavailable Unavailable CHANLIECKetty TRAYLOR MD Unavailable Unavailable CHANLIECKetty TRAYLOR MD Unavailable Unavailable Fish, Larisa Soto [facility]AS, PA-C Unavailable Unavailabl e Fish, Larisa Soto [facility], PA-C Unavailable Unavailabl e Fish, Larisa Soto [facility], PA-C Unavailable Unavailabl e Fish, [facility], PA-C Unavailable Unavailabl e Fish, [facility], PA-C Unavailable Unavailabl e Fish, [facility], PA-C Unavailable Unavailabl e Fish, [facility], PA-C Unavailable Unavailabl e Fish, [facility], PA-C Unavailable Unavailabl e Fish, [facility], PA-C Unavailable Unavailabl e Fish, [facility], PA-C Unavailable Unavailabl e Fish, [facility], PA-C Unavailable Unavailabl e Fish, [facility], PA-C Unavailable Unavailabl e Fish, [facility], PA-C Unavailable Unavailabl e Fish, [facility], PA-C Unavailable Unavailabl e Fish, [facility], PA-C Unavailable Unavailabl e Fish, [facility], PA-C Unavailable Unavailabl e Fish, [facility], PA-C Unavailable Unavailabl e Fish, [facility], PA-C Unavailable Unavailabl e Fish, [facility], PA-C Unavailable Unavailabl e Fish, [facility], PA-C Unavailable Unavailabl e Fish, [facility], PA-C Unavailable Unavailabl e Fish, [facility], PA-C Unavailable Unavailabl e Fish, [facility], PA-C Unavailable Unavailabl e Fish, [facility], PA-C Unavailable Unavailabl e Fish, [facility], PA-C Unavailable Unavailabl e Fish, [facility], PA-C Unavailable Unavailabl e Fish, [facility], PA-C Unavailable Unavailabl e Fish, [facility], PA-C Unavailable Unavailabl e Fish, [facility], PA-C Unavailable Unavailabl e Fish, [facility], PA-C Unavailable Unavailabl e Fish, [facility] [facility]C Unavailable Unavailabl e Fish, [facility], PA-C Unavailable Unavailabl e Fish, [facility], PA-C Unavailable Unavailabl e Fish, [facility], PA-C Unavailable Unavailabl e Fish, Larisa Soto MPAS, PA-C Unavailable Unavailabl e Fish, Larisa Soto MPAS, PA-C Unavailable Unavailabl e Anjelica Seals Unavailable NAIDU SR, JOSE ALFREDO ZAPIEN MD [...] SR, JOSE ALFREDO ZAPIEN MD Unavailable Unavailable NAIUD SR, JOSE ALFREDO ZAPIEN MD Unavailable Unavailable [...] ALFREDO ZAPIEN MD Unavailable Unavailable NAIDU SR, JSOE ALFREDO ZAPIEN MD Unavailable Unavailable NAIDU SR, JOSE ALFREDO ZAPIEN MD Unavailable Unavailable NAIDU SR, JOSE ALFREDO ZAPIEN MD Unavailable Unavailable NAIDU SR, JOSE ALFREDO ZAPIEN MD Unavailable Unavailable NAIDU SR, JOSE ALFREDO ZAPIEN MD Unavailable Unavailable NAIDU SR, JOSE ALFREDO ZAPIEN MD Unavailable Unavailable NAIDU SR, JOSE ALFREDO ZAPIEN MD Unavailable Unavailable NAIDU SR, JOSE ALFREDO ZAPIEN MD Unavailable Unavailable FARIAS, W SHANNAN PA Unavailable Unavailable FARIAS, W SHANNAN PA Unavailable Unavailable FARIAS, W SHANNAN PA Unavailable Unavailable FARIAS, W SHANNAN PA Unavailable Unavailable FARIAS, W SHANNAN PA Unavailable Unavailable FARIAS, W SHANNAN PA Unavailable Unavailable FARIAS, W SHANNAN PA Unavailable Unavailable FARIAS, W SHANNAN PA Unavailable Unavailable FARIAS, W SHANNAN PA Unavailable Unavailable FARIAS, W SHANNAN PA Unavailable Unavailable FARIAS, W SHANNAN PA Unavailable Unavailable FARIAS, W SHANNAN PA Unavailable Unavailable FARIAS, W SHANNAN PA Unavailable Unavailable FARIAS, W SHANNAN PA Unavailable Unavailable FARIAS, W SHANNAN PA Unavailable Unavailable NAIDU SR, JOSE ALFREDO ZAPIEN [...] MD Unavailable Unavailable NAIDU SR, JOSE ALFREDO ZAIPEN MD Unavailable Unavailable NAIDU SR, JOSE ALFREDO ZAPIEN MD Unavailable Unavailable NAIDU SR, JOSE ALFREDO ZAPIEN MD Unavailable Unavailable NAIDU SR, JOSE ALFREDO ZAPIEN MD Unavailable Unavailable NAIDU SR, JOSE ALFREDO ZAPIEN MD Unavailable Unavailable NAIDU SR, JOSE ALFREDO ZAPIEN MD Unavailable Unavailable NAIDU SR, JOSE ALFREDO ZAPIEN MD Unavailable Unavailable RODRIGO CHOE JR Unavailable Unavailable Brennan, Nirav Unavailable Brennan, Nirav Unavailable MEDENT_8646, [id number] Unavailable [phone] MEDENT_8646, [id number] Unavailable [phone] MEDENT_8646, [id number] Unavailable [phone] 0 MEDENT_8646, [id number] Unavailable [phone] MEDENT_8646, [id number] Unavailable [phone] 0 MEDENT_8646, [id number] Unavailable [phone] 0 MEDENT_8646, [id number] Unavailable [phone] MEDENT_8646, [id number] Unavailable [phone] 0 MEDENT_8646, [id number] Unavailable [phone] MEDENT_8646, [id number] Unavailable [phone] 0 MEDENT_8646, [id number] Unavailable [phone] MEDENT_8646, [id number] Unavailable [phone] 0 MEDENT_8646, [id number] Unavailable MEDENT_8646, [id number] Unavailable [phone] MEDENT_8646, [id number] Unavailable [phone] 0 MEDENT_8646, [id number] Unavailable [phone] 0 MEDENT_8646, [id number] Unavailable [phone] 0 MEDENT_8646, [id number] Unavailable [phone] MEDENT_8646, [id number] Unavailable [phone] 0 MEDENT_8646, [id number] Unavailable [phone] 0 MEDENT_8646, [id number] Unavailable [phone] MEDENT_8646, [id number] Unavailable [phone] MEDENT_8646, [id number] Unavailable [phone] MEDENT_8646, [id number] Unavailable [phone] MEDENT_8646, [id number] Unavailable [phone] MEDENT_8646, [id number] Unavailable [phone] MEDENT_8646, [id number] Unavailable [phone] Light, Ac Unavailable Unavailable Light, Ac Unavailable Unavailable Light, Ac Unavailable Unavailable Light, Ac Unavailable Unavailable Light, Ac Unavailable Unavailable Light, Ac Unavailable Unavailable Light, Ac Unavailable Unavailable Light, Ac Unavailable Unavailable Light, Ac Unavailable Unavailable Light, Ac Unavailable Unavailable Light, Ac Unavailable Unavailable Light, Ac Unavailable Unavailable Light, Ac Unavailable Unavailable Light, Ac Unavailable Unavailable Light, Ac Unavailable Unavailable Light, Ac Unavailable Unavailable Light, Ac Unavailable Unavailable Light, Ac Unavailable Unavailable Light, Ac Unavailable Unavailable Light, Ac Unavailable Unavailable Light, Ac Unavailable Unavailable Light, Ac Unavailable Unavailable Light, Ac Unavailable Unavailable Light, Ac Unavailable Unavailable Light, Ac Unavailable Unavailable Light, Ac Unavailable Unavailable Light, Ac Unavailable Unavailable Light, Ac Unavailable Unavailable Light, Ac Unavailable Unavailable Light, Ac Unavailable Unavailable Light, Ac Unavailable Unavailable Light, Ac Unavailable Unavailable Light, Ac Unavailable Unavailable Light, Ac Unavailable Unavailable Light, Ac Unavailable Unavailable Light, Ac Unavailable Unavailable Light, Ac Unavailable Unavailable Light, Ac Unavailable Unavailable Light, Ac Unavailable Unavailable Light, Ac Unavailable Unavailable Light, Ac Unavailable Unavailable Light, Ac Unavailable Unavailable Light, Ac Unavailable Unavailable Light, Ac Unavailable Unavailable Light, Ac Unavailable Unavailable REZA, Mamie. DESI Unavailable [phone] WERBLIN, Saul WEEKS Unavailable [phone] WERBLIN, Saul DESI Unavailable [phone] WERBLIN, Z. DESI Unavailable [phone] WERBLIN, Z. DESI Unavailable [phone] Fabiola Conway Unavailable PEREZ, P ALONSO PA-C Unavailable Unavailable PEREZ, P ALOSNO PA-C Unavailable Unavailable PEREZ, P ALONSO PA-C Unavailable Unavailable PEREZ, P ALONSO PA-C Unavailable Unavailable Marty, Nick PA-C Unavailable Marty, Nick PA-C Unavailable Farias, Nick PA-C Unavailable Marty, Nick PA-C Unavailable Farias, Nick PA-C Unavailable ORTIZ, G EDWARD RPA Unavailable Unavailable ORTIZ, G EDWARD RPA Unavailable Unavailable ORTIZ, G EDWARD RPA Unavailable Unavailable ORTIZ, G EDWARD RPA Unavailable Unavailable ORTIZ, G EDWARD RPA Unavailable Unavailable ORTIZ, G EDWARD RPA Unavailable Unavailable ORTIZ, G EDWARD RPA Unavailable Unavailable ORTIZ, G EDWARD RPA Unavailable Unavailable ORTIZ, G EDWARD RPA Unavailable Unavailable ORTIZ, G EDWARD RPA Unavailable Unavailable ORTIZ, G EDWARD RPA Unavailable Unavailable ORTIZ, G EDWARD RPA Unavailable Unavailable ORTIZ, G EDWARD RPA Unavailable Unavailable ORTIZ, G EDWARD RPA Unavailable Unavailable ORTIZ, G EDWARD RPA Unavailable Unavailable ORTIZ, G EDWARD RPA Unavailable Unavailable ORTIZ, G EDWARD RPA Unavailable Unavailable ORTIZ, G EDWARD RPA Unavailable Unavailable ORTIZ, G EDWARD RPA Unavailable Unavailable ORTIZ, G EDWARD RPA Unavailable Unavailable ORTIZ, G EDWARD RPA Unavailable Unavailable ORTIZ, G EDWARD RPA Unavailable Unavailable ORTIZ, G EDWARD RPA Unavailable Unavailable ORTIZ, G EDWARD RPA Unavailable Unavailable ORTIZ, G EDWARD RPA Unavailable Unavailable ORTIZ, G EDWARD RPA Unavailable Unavailable ORTIZ, G EDWARD RPA Unavailable Unavailable ORTIZ, G EDWARD RPA Unavailable Unavailable ORTIZ, G EDWARD RPA Unavailable Unavailable ORTIZ, G EDWARD RPA Unavailable Unavailable ORTIZ, G EDWARD RPA Unavailable Unavailable ORTIZ, G EDWARD RPA Unavailable Unavailable ORTIZ, G EDWARD RPA Unavailable Unavailable ORTIZ, G EDWARD RPA Unavailable Unavailable ORTIZ, G EDWARD RPA Unavailable Unavailable BRENNAN, M NIRAV Unavailable Unavailable TONTARSKI, G ALONSO PA Unavailable Unavailable TONTARSKI, G ALONSO PA Unavailable Unavailable TONTARSKI, G ALONSO PA Unavailable Unavailable TONTARSKI, G LAONSO PA Unavailable Unavailable TONTARSKI, G ALONSO PA Unavailable Unavailable TONTARSKI, G ALONSO PA Unavailable Unavailable TONTARSKI, G ALONSO PA Unavailable Unavailable TONTARSKI, G ALONSO PA Unavailable Unavailable TONTARSKI, G ALONSO PA Unavailable Unavailable TONTARSKI, G ALONSO PA Unavailable Unavailable TONTARSKI, G ALONSO PA Unavailable Unavailable TONTARSKI, G ALONSO PA Unavailable Unavailable TONTARSKI, G ALONSO PA Unavailable Unavailable TONTARSKI, G ALONSO PA Unavailable Unavailable TONTARSKI, G ALONSO PA Unavailable Unavailable TONTARSKI, G ALONSO PA Unavailable Unavailable TONTARSKI, G ALONSO PA Unavailable Unavailable TONTARSKI, G ALONSO PA Unavailable Unavailable TONTARSKI, G ALONSO PA Unavailable Unavailable TONTARSKI, G ALONSO PA Unavailable Unavailable TONTARSKI, G ALONSO PA Unavailable Unavailable TONTARSKI, G ALONSO PA Unavailable Unavailable TONTARSKI, G ALONSO PA Unavailable Unavailable TONTARSKI, G ALONSO PA Unavailable Unavailable TONTARSKI, G ALONSO PA Unavailable Unavailable TONTARSKI, G ALONSO PA Unavailable Unavailable TONTARSKI, G ALONSO PA Unavailable Unavailable TONTARSKI, G ALONSO PA Unavailable Unavailable TONTARSKI, G ALONSO PA Unavailable Unavailable TONTARSKI, G ALONSO PA Unavailable Unavailable TONTARSKI, G ALONSO PA Unavailable Unavailable TONTARSKI, G ALONSO PA Unavailable Unavailable TONTARSKI, G ALONSO PA Unavailable Unavailable TONTARSKI, G ALONSO PA Unavailable Unavailable TONTARSKI, G ALONSO PA Unavailable Unavailable TONTARSKI, G ALONSO PA Unavailable Unavailable TONTARSKI, G ALONSO PA Unavailable Unavailable TONTARSKI, G ALONSO PA Unavailable Unavailable TONTARSKI, G ALONSO PA Unavailable Unavailable TONTARSKI, G ALONSO PA Unavailable Unavailable TONTARSKI, G ALONSO PA Unavailable Unavailable TONTARSKI, G ALONSO PA Unavailable Unavailable TONTARSKI, G ALONSO PA Unavailable Unavailable TONTARSKI, G ALONSO PA Unavailable Unavailable TONTARSKI, G ALONSO PA Unavailable Unavailable TONTARSKI, G ALONSO PA Unavailable Unavailable TONTARSKI, G ALONSO PA Unavailable Unavailable Laura, J Eduard PA-C Unavailable Unavailable Laura, J Eduard PA-C Unavailable Unavailable Laura, Oliverio Eduard PA-C Unavailable Unavailable Laura, Oliverio Chapa PA-C Unavailable Unavailable Laura, Oliverio Chapa PA-C Unavailable Unavailable Laura, Oliverio Chapa PA-C Unavailable Unavailable Laura, Oliverio Chapa PA-C Unavailable Unavailable Laura, Oliverio Chapa PA-C Unavailable Unavailable Laura, Oliverio Eduard PA-C Unavailable Unavailable Laura, Oliverio Eduard PA-C Unavailable Unavailable Norgrove, Desi PA Unavailable Unavailable Louis, W Desi RPA-C [...] Unavailable Louis, W Desi RPA-C Unavailable Unavailable Re-disclosure Warning The records that you [...] is protected by Article 27-F of the [facility] Public Health law. If you continue you may have access to information: Regarding HIV / AIDS; Provided by facilities licensed or operated by the [facility] Office of Mental Health; or Provided by the [facility] Office for People With Developmental Disabilities. If such information is present, then the following [facility] mandated warning applies: This information has [...] law may result in a fine or mcfp sentence or both. A general authorization for the release of medical or other information is NOT sufficient authorization for further disc losure. Allergies and Adverse Reactions Type Description Substance Reaction Status Data Source(s ) Propensity to adverse reactions to substance nkda 24 HR Bupropion Hydrochloride 150 MG Extended Release Oral Tablet Active Accu medic ([facility]) Drug allergy Drug allergy venom-honey bee (bee venom (bhupendra y bee)) Anaphylactic Shock [facility] Drug allergy Drug allergy [facility] [place] Family History Family Member Name Family Member Gender Family Member Status Date o f Status Description Data Source(s) Unknown Male Diagnosis 12/07/2015 12:00:00 AM EDT [facility] ([facility]) Unknown Male Diagnosis 12/07/2015 12:00:00 AM EDT [facility] ([facility]) Unknown Unknown Problem MEDENT ([facility]) Encounters Encounter Providers Location Date Indications Data Source(s ) Outpatient Attender: Otilia CrouchAttender: OTILIA CROUCH 05/18/2021 12:00:00 AM [facility] [place] [address] [address] 05/12/2021 12:00:00 AM EDT eCW1 ([facility]) Outpatient Attender: Desi ASKEW 01:28:04 PM EDT - 05/08/2021 02:52:47 PM EDT [facility]uTap ([facility]) [place] [address] [address] 05/04/2021 12:00:00 AM EDT eCW1 ([facility]) Outpatient 05/01/2021 09:07:17 PM EDT - 021 09:19:31 PM EDT [facility]ap ([facility]) Outpatient Attender: Romero Alaniz MD Physical Therapy 04/29/2021 0 8:45:00 AM EDT MEDENT ([facility]) OFFICE OUTPATIENT VISIT 15 MINUTES Attender: Brittany WOODRUFF PA-C Physical Therapy 04/25/2021 09:30:00 AM EDT MEDENT ([facility]) Outpatient Attender: OTILIA CROUCHAttender: Otilia Crouch [id number] 04/20/2021 12:00:00 AM EDT [facility] [place] [address] [address] 04/19/2021 12:00:00 AM EDT eCW1 ([facility]) [place] [address] [address] 04/18/2021 12:00:00 AM EDT eCW1 ([facility]) Extended Individual Psychotherapy - 45 min Attender: Bebo Seals [facility] 04/14/2021 09:00:00 AM EDT - 04/14/2021 09:00:00 AM EDT Accumedic ([facility]) Attender: Anjelica Seals 04/14/2021 12:00:00 AM E DT Accumedic ([facility]) [place] [address] [address] 04/13/2021 12:00:00 AM EDT eCW1 ([facility]) [place] [address] [address] 04/12/2021 12:00:00 AM EDT eCW1 ([facility]) [place] [address] [place] [address] 04/12/2021 12:00:00 AM EDT eCW1 ([facility]) [place] [address] [address] 04/12/2021 12:00:00 AM EDT eCW1 ([facility]) [place] [address] [place] [address] 04/12/2021 12:00:00 AM EDT eCW1 ([facility]) Emergency Attender: MURIEL Barreraerrer: [id number] 04/10/2021 10:00:00 PM EDT - 04/10/2021 10:01:00 PM EDT [facility] Patient discharged. Outpatient Attender: Gabriel Ball 04/08 08:00:27 PM EDT - 04/08/2021 08:24:39 PM EDT DocuTap ([facility] ) Outpatient Attender: Ac Light Physical Therapy 04/06/2021 03:40:0 0 PM EDT MEDENT ([facility]) [place] [address] [address] 04/06/2021 12:00:00 AM EDT eCW1 ([facility]) Outpatient Attender: LORE ORTIZ RPA 03/31 09:07:36 PM EDT - 03/31/2021 09:47:35 PM EDT DocuTap ([facility] ) Psychiatric Diagnostic Evaluation (Non-Medical) Attender: Juliana Seals [facility] 03/31/2021 09:00:00 AM EDT - 03/31/2021 09:00:00 AM EDT [facility] ([facility]) Attender: Anjelica Seals 03/31/2021 12:00:00 AM E DT [facility] ([facility]) [place] [address] [address] 03/30/2021 12:00:00 AM EDT eCW1 ([facility]) Emergency Attender: MURIEL Singletoner: Nadine SUAREZ 03/15/2021 09:26:00 PM EDT - 03/15/2021 10:21:00 PM EDT [facility] Patient discharged. [place] [address] [place] [address] 03/15/2021 12:00:00 AM EDT eCW1 ([facility]) Extended Individual Psychotherapy - 45 min Attender: Bebo Seals [facility] 03/08/2021 11:00:00 AM EDT - 03/08/2021 11:00:00 AM EDT Accumedic ([facility]) [place] [address] [address] 03/08/2021 12:00:00 AM EDT eCW1 ([facility]) Attender: Anjelica Seals 03/08/2021 12:00:00 AM E DT Accumedic ([facility]) [facility]patient [facility] 03/07/2021 12:00:00 AM EDT eCW1 ([facility]) Outpatient [facility] 02/16/2021 12:00:00 AM EDT eCW1 ([facility]) Outpatient [facility] 02/16/2021 12:00:00 AM EDT eCW1 ([facility]) [place] [address] [place] [address] 02/07/2021 12:00:00 AM EDT eCW1 ([facility]) Outpatient Attender: Caitie HASSAN 02/04/2021 10:00:0 0 AM EDT [facility] Outpatient [facility] 02/04/2021 12:00:00 AM EDT eCW1 ([facility]) Outpatient [facility] 02/02/2021 12:00:00 AM EDT eCW1 ([facility]) Outpatient Attender: Caitie CHRISTOPHERP-C 02/01/2021 03:30:0 0 PM EDT [facility] Admission cancelled. Disregard status an d admitted date. Emergency Attender: Nick ASKEW-CReferrer: Sandra carlin [facility] 01/19/2021 07:51:00 PM EDT - 01/19/2021 08:00:00 PM EDT [facility] Patient discharged. Outpatient Attender: Caitie CHRISTOPHERP-C 01/13/2021 02:30:0 0 PM EDT [facility] Outpatient [facility] 01/13/2021 12:00:00 AM EDT eCW1 ([facility]) Outpatient [facility] 01/13/2021 12:00:00 AM EDT eCW1 ([facility]) Outpatient [facility] 01/10/2021 12:00:00 AM EDT eCW1 ([facility]) Emergency Attender: SHERI Asher: Arpita Casanova [facility] EMERGENCY ROOM-ER 01/08/2021 04:25:00 PM EDT - 01/08/2021 06:01:00 PM EDT [facility] Patient discharged. Outpatient Attender: DESI GROVES MD 01/03/2021 12:00:00 AM EDT [facility] Outpatient [facility] 10/01/2020 12:00:00 AM EST eCW1 ([facility]) Outpatient Attender: Caitie CHRISTOPHERP-C 09/24/2020 04:45:0 0 PM EST [facility] Attender: Jonelle ASKEW PPNCSTEPHANIE [place]ari[place] 11/2020 11:10:00 AM EST - 09/24/2020 11:10:00 AM EST Enctr srvlnc implantable subdermal contraceptiveEncounter for oth general cnsl and advice on contraceptionOther sex counseling NextGen ([facility]) Enctr srvlnc implantable subdermal contr aceptive Encounter for oth general cnsl and advic e on contraception Other sex counseling Outpatient [facility] 09/24/2020 12:00:00 AM EST eCW1 ([facility]) Outpatient [facility] 09/24/2020 12:00:00 AM EST eCW1 ([facility]) Outpatient Attender: Sandra CALDWELLCReferrer: Sandra CHRISTOPHERP [facility] 09/17/2020 09:13:00 AM EST - 09/17/2020 09:13:00 AM [facility] Outpatient [facility] 09/17/2020 12:00:00 AM EST eCW1 ([facility]) Outpatient Attender: Nirav Tuckerender: NIRAV BRENNAN 09/03/2020 08:02:00 AM [facility] Emergency Attender: ANNABELLA Singletoner: Sandra SUAREZ 09/01/2020 11:13:00 PM EST - 09/01/2020 11:32:00 PM EST [facility] Patient discharged. Outpatient Attender: [facility] 08/29/2020 01:3 5:00 PM [facility] Emergency Attender: ARNULFO HICKEY MDConsultant: RAYNE NAIDU SR 08/29/2020 12:47:00 PM EST - 08/29/2020 03:45:00 PM EST [facility] Patient discharged. Outpatient [facility] 08/02/2020 12:00:00 AM EST eCW1 ([facility]) Outpatient [facility] 07/05/2020 12:00:00 AM EST eCW1 ([facility]) Emergency Attender: Eduard CALDWELLCConsultant: CURRY BARAJAS SR 07/02/2020 01:57:00 PM EST - 07/02/2020 03:20:00 PM EST [facility] Patient discharged. Outpatient [facility] 07/02/2020 12:00:00 AM EST eCW1 ([facility]) Outpatient Attender: Caitie SUAREZ-C 06/25/2020 11:00:0 0 AM [facility] Outpatient [facility] 06/25/2020 12:00:00 AM EST eCW1 ([facility]) Emergency Attender: Desi ZIEGLERCReferrer: CURRY REINOSO ACE SR 06/19/2020 03:46:00 PM EST - 06/19/2020 04:54:00 PM EST [facility]ital Patient discharged. Outpatient Attender: Roxy Jaime [facility]-NPReferrer : CURRY NAIDU SR EMERGENCY ROOM-LABOTHPROV 05/04/2020 08:45:00 AM EDT - 05/04/2020 08:45:00 AM EDT [facility] Outpatient CPSCAORT-LABEJN 05/03/2020 09:51:00 AM EDT [facility] Outpatient [facility] 05/03/2020 12:00:00 AM EDT eCW1 ([facility]) Emergency Attender: JOSE ALFREDO ASKEW ED-ED 05/02 01:35:00 PM EDT - 05/02/2020 03:48:00 PM EDT LOWER LEFT BACK PAIN DIZZINESS NAUSEA [facility] LOWER LEFT BACK PAIN DIZZINESS NAUSEA Patient discharged. Emergency Attender: DAVID CHOE JR Attender: DAVID CHOE JRReferrer: CURRY NAIDU SR 05/02/2020 12:14:00 PM EDT - 05/02/2020 12:23:0 0 PM EDT [facility] Patient discharged. Outpatient Attender: Roxy Jaime [facility]-CHARGEMASTER ANALYST [facility] [address] [facility] 04/19/2020 03:30:00 AM EDT - 04/19/2020 03:30:00 AM EDT [facility] ([facility]) Attender: Roxy Jaime [facility]-CHARGEMASTER ANALYST 04/19/2020 12: 00:00 AM EDT [facility] ([facility]) Extended Individual Psychotherapy - 45 min Attender: Nikky Conway [facility] 04/16/2020 10:00:00 AM EDT - 04/16/2020 10:00:00 AM EDT [facility] ([facility]) Attender: Fabiola Conway 04/16/2020 12:00:00 AM EDT [facility] ([facility]) Outpatient Attender: NAVI OAKLEY NPReferrer: Nick ASKEW 04/09/2020 12:00:00 AM EDT [facility] Extended Individual Psychotherapy - 45 min Attender: Nikky Conway [facility] 03/26/2020 09:00:00 AM EDT - 03/26/2020 09:00:00 AM EDT [facility] ([facility]) Attender: Fabiola Conway 03/26/2020 12:00:00 AM EDT [facility] ([facility]) Outpatient Attender: CURRY NAIDU SRReferrer: CURRY Siegel SR 03/16/2020 03:00:00 PM EDT - 03/16/2020 03:00:00 PM EDT [facility] Outpatient Attender: CURRY NAIDU SR 03/05/2020 09:11:00 AM [facility] Outpatient Attender: CURRY NAIDU SR 10/17/2019 10:00:00 AM [facility] Emergency Attender: MURIEL Barreraerrer: CURRY NAIDU SR 03/28/2019 09:47:00 PM EDT - 03/28/2019 10:41:00 PM [facility] Patient discharged. Emergency Attender: Desi ZIEGLERCReferrer: CURRY REINOSO ACE, SR 03/15/2019 05:30:00 PM EDT - 03/15/2019 06:30:00 PM EDT [facility] Patient discharged. Emergency Attender: GUCCI CANELA [facility] tender: GUCCI CANELAReferrer: CURRY NAIDU EMERGENCY ROOM-ER 02/21/2019 03:01:00 AM EDT - 02/21/2019 06:30:00 AM [facility] Patient discharged. Emergency Attender: ALONSO WalkerCAttender: ALONSO PEREZReferrer: CURRY NAIDU SR 02/19/2019 04:45:00 AM EDT - 02/19/2019 06:36:0 0 AM [facility] Patient discharged. Outpatient Attender: CURRY NAIDU SRReferrer: CURRY Siegel SR 09/23/2018 09:00:00 AM EST - 09/23/2018 09:00:00 AM [facility] Emergency Attender: MURIEL Barreraerrer: CURRY NAIDU SR 09/16/2018 08:02:00 PM EST - 09/16/2018 09:02:00 PM [facility] Emergency Attender: SHERI Singletoner: ALONSO ASKEW 08/07/2018 04:18:00 PM EST - 08/07/2018 07:07:00 PM [facility] Outpatient Attender: Sandra Blancootte FNPReferrer: CURRY BARAJAS SR 03/14/2018 09:00:00 AM [facility] Emergency Attender: MURIEL ASKEW EMERGENCY ROOM- ER 12/03/2016 05:00:00 AM EDT - 12/03/2016 07:34:00 AM [facility] Emergency Attender: MURIEL ASKEW EMERGENCY ROOM- ER 11/12/2016 08:09:00 PM EDT - 11/12/2016 08:55:00 PM [facility] Emergency Attender: Araceli Montez MD EMERGENCY ROOM-E R 11/04/2016 11:16:00 AM EDT - 11/04/2016 12:59:00 PM [facility] Outpatient CPSCAORT-LABEJN 10[facility] DESI COBB EMERGENCY ROOM-ER 07/18 05:05:00 PM [facility] - 07/18/2016 06:47:00 PM [facility] Outpatient CPSCAORT-LABEJN 10/12/2015 08:18:00 PM EDT [facility] Outpatient CPSCAORT-LABEJN 07/30/2015 07:02:00 PM [facility] Outpatient Attender: DELGADO TRENT CHARGEMASTER ANALYST CPSCAORT-CPSGNOBG 0 07/30/2015 01:16:00 PM [facility] - 07/30/2015 01:17:00 PM [facility] Attender: RADHA ASKEW CPSCAORT-LABEJN 06/21 12:18:00 PM [facility] Emergency Attender: SHANNAN ASKEW 04/21/20 15 04:57:00 PM EDT - 04/21/2015 05:34:00 PM [facility] Functional Status Immunizations Vaccine Date Status Description Data Source(s) COVID-19 VACCINE Andreina 2020 12:00:00 AM EDT completed NYSIIS Vaccine Series Complete: YESThis Data wa s Submitted to [facility] Via [employer]. 09/24/2020 05:15:00 PM EST completed e CW1 ([facility]) 09/24/2020 05:15:00 PM EST completed e CW1 ([facility]) 09/24/2020 05:15:00 PM EST completed e CW1 ([facility]) 09/24/2020 05:15:00 PM EST completed e CW1 ([facility]) 09/24/2020 05:15:00 PM EST completed e CW1 ([facility]) 09/24/2020 05:15:00 PM EST completed e CW1 ([facility]) 09/24/2020 05:15:00 PM EST completed e CW1 ([facility]) 09/24/2020 05:15:00 PM EST completed e CW1 ([facility]) 09/24/2020 05:15:00 PM EST completed e CW1 ([facility]) 09/24/2020 05:15:00 PM EST completed e CW1 ([facility]) 09/24/2020 05:15:00 PM EST completed e CW1 ([facility]) 09/24/2020 05:15:00 PM EST completed e CW1 ([facility]) Medications Medication Brand Name Start Date Product Form Dose Route Admi nistrative Instructions Pharmacy Instructions Status Indications Reaction Description Data Source(s) ferrous sulfate 325 MG Delayed Release O ral Tablet Ferrous Sulfate 325 (65 Fe) MG Ferrous Sulfate 325 (65 Fe) MG 05/09/2021 12:00:00 AM EDT 1. 0 {tablet} active Ferrous Sulfate 325 (65 Fe) MG eCW1 ([facility]) ferrous sulfate 325 MG Delayed Release O ral Tablet Ferrous Sulfate 325 (65 Fe) MG Ferrous Sulfate 325 (65 Fe) MG 05/09/2021 12:00:00 AM EDT 1. 0 {tablet} active Ferrous Sulfate 325 (65 Fe) MG eCW1 ([facility]) 1 % 05/03/2021 12:00:00 AM EDT gel 100 APPLY 1 GRAM TOPICALLY TO AFFECTED AREAS ON HANDS 3 TIMES A DAY DIRECTED APPLY 1 GRAM TOPICALLY TO AFFECTED AREAS ON HANDS 3 TIMES A DAY DIRECTED SOLD: 05/03/2021 [facility] 100 mg 04/29/2021 12:00:00 AM EDT capsule 90 TAKE 1 TO 2 CAPSULES BY MOUTH THREE TIMES A DAY TAKE 1 TO 2 CAPSULES BY MOUTH THREE TIMES A DAY SOLD: 04/29/2021 [facility] gabapentin 100 MG Oral Capsule Gabapentin 04/29/2021 12:00:00 AM EDT ORAL active MEDENT ([facility]) Alprazolam 0.5 MG Oral Tablet ALPRAZOLAM 04/19/2021 12:00:00 AM EDT ta blet 60 TAKE ONE TABLET BY MOUTH TWICE A DAY MAXIMUM DAILY DOSE = 2 TAKE ONE TABLET BY MOUTH TWICE A DAY MAXIMUM DAILY DOSE = 2 SOLD: 04/19/2021 [facility] Acetaminophen 325 MG / Hydrocodone Bitartrate 5 MG Ora l Tablet 5-325 mg HYDROCODONE/ACETAMINOPHEN 04/19/2021 12:00:00 AM EDT tablet 120 TAKE ONE TABLET BY MOUTH EVERY 6 HOURS NEEDED MAXIMUM DAILY DOSE = 4 TABLETS TAKE ONE TABLET BY MOUTH EVERY 6 HOURS NEEDED MAXIMUM DAILY DOSE = 4 TABLETS SOLD: 04/25/2021 [facility] Alprazolam 0.5 MG Oral Tablet ALPRAZolam 0.5 MG ALPRAZolam 0 .5 MG 04/18/2021 12:00:00 AM EDT 1.0 {tablet} active AL PRAZolam 0.5 MG eCW1 ([facility]) Alprazolam 0.5 MG Oral Tablet ALPRAZolam 0.5 MG ALPRAZolam 0 .5 MG 04/18/2021 12:00:00 AM EDT 1.0 {tablet} active AL PRAZolam 0.5 MG eCW1 ([facility]) Alprazolam 0.5 MG Oral Tablet ALPRAZolam 0.5 MG ALPRAZolam 0 .5 MG 04/18/2021 12:00:00 AM EDT 1.0 {tablet} active AL PRAZolam 0.5 MG eCW1 ([facility]) Acetaminophen 325 MG / Hydrocodone Selwyn trate 5 MG Oral Tablet HYDROcodone- Acetaminophen 5-325 MG HYDROcodone-Acetaminophen 5-325 MG 04/18/2021 12:00:00 AM EDT 1.0 {tablet_as_needed} active HYDROcodone-Acetaminophen 5-325 MG eCW1 ([facility]) Alprazolam 0.5 MG Oral Tablet ALPRAZolam 0.5 MG ALPRAZolam 0 .5 MG 04/18/2021 12:00:00 AM EDT 1.0 {tablet} active AL PRAZolam 0.5 MG eCW1 ([facility]) Acetaminophen 325 MG / Hydrocodone Selwyn trate 5 MG Oral Tablet HYDROcodone- Acetaminophen 5-325 MG HYDROcodone-Acetaminophen 5-325 MG 04/18/2021 12:00:00 AM EDT 1.0 {tablet_as_needed} active HYDROcodone-Acetaminophen 5-325 MG eCW1 ([facility]) Alprazolam 0.5 MG Oral Tablet ALPRAZolam 0.5 MG ALPRAZolam 0 .5 MG 04/18/2021 12:00:00 AM EDT 1.0 {tablet} active AL PRAZolam 0.5 MG eCW1 ([facility]) Acetaminophen 325 MG / Hydrocodone Selwyn trate 5 MG Oral Tablet HYDROcodone- Acetaminophen 5-325 MG HYDROcodone-Acetaminophen 5-325 MG 04/18/2021 12:00:00 AM EDT 1.0 {tablet_as_needed} active HYDROcodone-Acetaminophen 5-325 MG eCW1 ([facility]) Alprazolam 0.5 MG Oral Tablet [Xanax] Xanax 0.5 MG Xanax 0.5 MG 04/15/2021 12:00:00 AM EDT 1.0 {tablet_as_needed} active Xanax 0.5 MG eCW1 ([facility]) Alprazolam 0.5 MG Oral Tablet ALPRAZolam 0.5 MG ALPRAZolam 0 .5 MG 04/15/2021 12:00:00 AM EDT 1.0 {tablet} active AL PRAZolam 0.5 MG eCW1 ([facility]) Alprazolam 0.5 MG Oral Tablet [Xanax] Xanax 0.5 MG Xanax 0.5 MG 04/15/2021 12:00:00 AM EDT 1.0 {tablet_as_needed} active Xanax 0.5 MG eCW1 ([facility]) Alprazolam 0.5 MG Oral Tablet [Xanax] Xanax 0.5 MG Xanax 0.5 MG 04/15/2021 12:00:00 AM EDT 1.0 {tablet_as_needed} active Xanax 0.5 MG eCW1 ([facility]) Acetaminophen 325 MG / Hydrocodone Selwyn trate 5 MG Oral Tablet HYDROcodone- Acetaminophen 5-325 MG HYDROcodone-Acetaminophen 5-325 MG 04/12/2021 12:00:00 AM EDT 1.0 {tablet_as_needed} active HYDROcodone-Acetaminophen 5-325 MG eCW1 ([facility]) Acetaminophen 325 MG / Hydrocodone Selwyn trate 5 MG Oral Tablet HYDROcodone- Acetaminophen 5-325 MG HYDROcodone-Acetaminophen 5-325 MG 04/12/2021 12:00:00 AM EDT 1.0 {tablet_as_needed} active HYDROcodone-Acetaminophen 5-325 MG eCW1 ([facility]) Acetaminophen 325 MG / Hydrocodone Selwyn trate 5 MG Oral Tablet HYDROcodone- Acetaminophen 5-325 MG HYDROcodone-Acetaminophen 5-325 MG 04/12/2021 12:00:00 AM EDT 1.0 {tablet_as_needed} active HYDROcodone-Acetaminophen 5-325 MG eCW1 ([facility]) Acetaminophen 325 MG / Hydrocodone Selwyn trate 5 MG Oral Tablet HYDROcodone- Acetaminophen 5-325 MG HYDROcodone-Acetaminophen 5-325 MG 04/12/2021 12:00:00 AM EDT 1.0 {tablet_as_needed} active HYDROcodone-Acetaminophen 5-325 MG eCW1 ([facility]) Acetaminophen 325 MG / Hydrocodone Selwyn trate 5 MG Oral Tablet HYDROcodone- Acetaminophen 5-325 MG HYDROcodone-Acetaminophen 5-325 MG 04/06/2021 12:00:00 AM EDT 1.0 {tablet_as_needed} suspended HYDROcodone-Acetaminophen 5- 325 MG eCW1 ([facility]) Acetaminophen 325 MG / Hydrocodone Selwyn trate 5 MG Oral Tablet HYDROcodone- Acetaminophen 5-325 MG HYDROcodone-Acetaminophen 5-325 MG 04/06/2021 12:00:00 AM EDT 1.0 {tablet_as_needed} suspended HYDROcodone-Acetaminophen 5- 325 MG eCW1 ([facility]) Acetaminophen 325 MG / Hydrocodone Selwyn trate 5 MG Oral Tablet HYDROcodone- Acetaminophen 5-325 MG HYDROcodone-Acetaminophen 5-325 MG 04/06/2021 12:00:00 AM EDT 1.0 {tablet_as_needed} active HYDROcodone-Acetaminophen 5-325 MG eCW1 ([facility]) Acetaminophen 325 MG / Hydrocodone Selwyn trate 5 MG Oral Tablet HYDROcodone- Acetaminophen 5-325 MG HYDROcodone-Acetaminophen 5-325 MG 04/06/2021 12:00:00 AM EDT 1.0 {tablet_as_needed} suspended HYDROcodone-Acetaminophen 5- 325 MG eCW1 ([facility]) Acetaminophen 325 MG / Hydrocodone Selwyn trate 5 MG Oral Tablet HYDROcodone- Acetaminophen 5-325 MG HYDROcodone-Acetaminophen 5-325 MG 04/06/2021 12:00:00 AM EDT 1.0 {tablet_as_needed} suspended HYDROcodone-Acetaminophen 5- 325 MG eCW1 ([facility]) Acetaminophen 325 MG / Hydrocodone Selwyn trate 5 MG Oral Tablet HYDROcodone- Acetaminophen 5-325 MG HYDROcodone-Acetaminophen 5-325 MG 04/06/2021 12:00:00 AM EDT 1.0 {tablet_as_needed} suspended HYDROcodone-Acetaminophen 5- 325 MG eCW1 ([facility]) Acetaminophen 325 MG / Hydrocodone Selwyn trate 5 MG Oral Tablet HYDROcodone- Acetaminophen 5-325 MG HYDROcodone-Acetaminophen 5-325 MG 04/06/2021 12:00:00 AM EDT 1.0 {tablet_as_needed} suspended HYDROcodone-Acetaminophen 5- 325 MG eCW1 ([facility]) Acetaminophen 325 MG / Hydrocodone Selwyn trate 5 MG Oral Tablet HYDROcodone- Acetaminophen 5-325 MG HYDROcodone-Acetaminophen 5-325 MG 04/06/2021 12:00:00 AM EDT 1.0 {tablet_as_needed} suspended HYDROcodone-Acetaminophen 5- 325 MG eCW1 ([facility]) Acetaminophen 325 MG / Hydrocodone Selwyn trate 5 MG Oral Tablet HYDROcodone- Acetaminophen 5-325 MG HYDROcodone-Acetaminophen 5-325 MG 04/06/2021 12:00:00 AM EDT 1.0 {tablet_as_needed} suspended HYDROcodone-Acetaminophen 5- 325 MG eCW1 ([facility]) Acetaminophen 325 MG / Hydrocodone Selwyn trate 5 MG Oral Tablet HYDROcodone- Acetaminophen 5-325 MG HYDROcodone-Acetaminophen 5-325 MG 04/06/2021 12:00:00 AM EDT 1.0 {tablet_as_needed} active HYDROcodone-Acetaminophen 5-325 MG eCW1 ([facility]) Acetaminophen 325 MG / Hydrocodone Selwyn trate 5 MG Oral Tablet HYDROcodone- Acetaminophen 5-325 MG HYDROcodone-Acetaminophen 5-325 MG 04/06/2021 12:00:00 AM EDT 1.0 {tablet_as_needed} suspended HYDROcodone-Acetaminophen 5- 325 MG eCW1 ([facility]) Fluticasone propionate 0.05 MG/ACTUAT Metered Dose Davon al Livingston 50 mcg/actuation FLUTICASONE PROPIONATE 04/05/2021 12:00:00 AM EDT spray,suspension 9 SPRAY 1 SPRAY IN EACH NOSTRIL ONCE A DAY SPRAY 1 SPRAY IN EACH NOSTRIL ONCE A DAY SOLD: 04/09/2021 [facility] 25 mg 04/04/2021 12:00:00 AM EDT tablet 9 TAKE 1 TABLET BY MOUTH NEEDED FOR HEADACHE MAY REPEAT DOSE IN 2 HOURS TAKE 1 TABLET BY MOUTH NEEDED FOR HEADACHE MAY REPEAT DOSE IN 2 HOURS SOLD: 04/29/2021 [facility] 10 mg 04/04/2021 12:00:00 AM EDT tablet 30 TAKE 1 TABLET BY MOUTH ONCE DAILY TAKE 1 TABLET BY MOUTH ONCE DAILY SOLD: 04/05/2021 [facility] 25 mg 04/04/2021 12:00:00 AM EDT tablet 9 TAKE 1 TABLET BY MOUTH NEEDED FOR HEADACHE MAY REPEAT DOSE IN 2 HOURS TAKE 1 TABLET BY MOUTH NEEDED FOR HEADACHE MAY REPEAT DOSE IN 2 HOURS SOLD: 04/05/2021 [facility] 10 mg 04/04/2021 12:00:00 AM EDT tablet 30 TAKE 1 TABLET BY MOUTH ONCE DAILY TAKE 1 TABLET BY MOUTH ONCE DAILY SOLD: 05/03/2021 [facility] [id number] 0.3 ML Epinephrine 1 MG/ML Auto-Injector EPINEPHRI NE 04/04/2021 12:00:00 AM EDT auto-injector 2 INJECT DIRECTED INJECT DIRECTED SOLD: 04/05/2021 [facility] 20 mg 04/01/2021 12:00:00 AM EDT tablet 18 TAKE 3 TABLETS BY MOUTH DAILY FOR 3 DAYS;2/DAY FOR 3 DAYS;1/DAY FOR 3 DAYS TAKE 3 TABLETS BY MOUTH DAILY FOR 3 DAYS;2/DAY FOR 3 DAYS;1/DAY FOR 3 DAYS SOLD: 04/01/2021 [facility] Alprazolam 0.5 MG Oral Tablet ALPRAZOLAM 03/21/2021 12:00:00 AM EDT ta blet 56 TAKE ONE TABLET BY MOUTH TWICE A DAY NEEDED MAXIMUM DAILY DOSE = 2 TABLETS TAKE ONE TABLET BY MOUTH TWICE A DAY NEEDED MAXIMUM DAILY DOSE = 2 TABLETS SOLD: 03/21/2021 [facility] Acetaminophen 325 MG / Hydrocodone Selwyn trate 5 MG Oral Tablet HYDROcodone- Acetaminophen 5-325 MG HYDROcodone-Acetaminophen 5-325 MG 03/21/2021 12:00:00 AM EDT 1.0 {tablet_as_needed} active HYDROcodone-Acetaminophen 5-325 MG eCW1 ([facility]) Acetaminophen 325 MG / Hydrocodone Selwyn trate 5 MG Oral Tablet HYDROcodone- Acetaminophen 5-325 MG HYDROcodone-Acetaminophen 5-325 MG 03/21/2021 12:00:00 AM EDT 1.0 {tablet_as_needed} active HYDROcodone-Acetaminophen 5-325 MG eCW1 ([facility]) Alprazolam 0.5 MG Oral Tablet [Xanax] Xanax 0.5 MG Xanax 0.5 MG 03/21/2021 12:00:00 AM EDT 1.0 {tablet_as_needed} active Xanax 0.5 MG eCW1 ([facility]) Alprazolam 0.5 MG Oral Tablet [Xanax] Xanax 0.5 MG Xanax 0.5 MG 03/21/2021 12:00:00 AM EDT 1.0 {tablet_as_needed} active Xanax 0.5 MG eCW1 ([facility]) Acetaminophen 325 MG / Hydrocodone Bitartrate 5 MG Ora l Tablet 5-325 mg HYDROCODONE/ACETAMINOPHEN 03/21/2021 12:00:00 AM EDT tablet 112 TAKE 1 TABLET BY MOUTH EVERY 6 HOURS NEEDED SEVERE PAIN BETWEEN 8-10 ON PAIN SCALE, MAX DAILY DOSE = 4 TABLETS TAKE 1 TABLET BY MOUTH EVERY 6 HOURS NEEDED SEVERE PAIN BETWEEN 8-10 ON PAIN SCALE, MAX DAILY DOSE = 4 TABLETS SOLD: 03/21/2021 [facility] Alprazolam 0.5 MG Oral Tablet [Xanax] Xanax 0.5 MG Xanax 0.5 MG 03/21/2021 12:00:00 AM EDT 1.0 {tablet_as_needed} active Xanax 0.5 MG eCW1 ([facility]) 100 mg 03/09/2021 12:00:00 AM EDT tablet 30 TAKE ONE TABLET BY MOUTH EVERY DAY TAKE ONE TABLET BY MOUTH EVERY DAY SOLD: 04/09/2021 [facility] 100 mg 03/09/2021 12:00:00 AM EDT tablet 30 TAKE ONE TABLET BY MOUTH EVERY DAY TAKE ONE TABLET BY MOUTH EVERY DAY SOLD: 05/08/2021 [facility] 100 mg 03/09/2021 12:00:00 AM EDT tablet 30 TAKE ONE TABLET BY MOUTH EVERY DAY TAKE ONE TABLET BY MOUTH EVERY DAY SOLD: 03/12/2021 [facility] Losartan Potassium 100 MG Oral Tablet Losartan Potassium 100 MG 03/08/2021 12:00:00 AM EDT 1.0 {tablet} active Lo sartan Potassium 100 MG eCW1 ([facility]) Losartan Potassium 100 MG Oral Tablet Losartan Potassium 100 MG 03/08/2021 12:00:00 AM EDT 1.0 {tablet} active Lo sartan Potassium 100 MG eCW1 ([facility]) Alprazolam 0.5 MG Oral Tablet [Xanax] Xanax 0.5 MG Xanax 0.5 MG 03/08/2021 12:00:00 AM EDT 1.0 {tablet} active Xa nax 0.5 MG eCW1 ([facility]) Alprazolam 0.5 MG Oral Tablet ALPRAZOLAM 03/08/2021 12:00:00 AM EDT ta blet 14 TAKE ONE TABLET BY MOUTH TWICE A DAY FOR 7 DAYS MAXIMUM DAILY DOSE = 2 TAKE ONE TABLET BY MOUTH TWICE A DAY FOR 7 DAYS MAXIMUM DAILY DOSE = 2 SOLD: 03/08/2021 [facility] Losartan Potassium 100 MG Oral Tablet Losartan Potassium 100 MG 03/08/2021 12:00:00 AM EDT 1.0 {tablet} active Lo sartan Potassium 100 MG eCW1 ([facility]) Acetaminophen 325 MG / Hydrocodone Bitartrate 5 MG Ora l Tablet 5-325 mg HYDROCODONE/ACETAMINOPHEN 03/08/2021 12:00:00 AM EDT tablet 20 TAKE ONE TABLET BY MOUTH EVERY 6 HOURS NEEDED MAXIMUM DAILY DOSE = 4 TABLETS TAKE ONE TABLET BY MOUTH EVERY 6 HOURS NEEDED MAXIMUM DAILY DOSE = 4 TABLETS SOLD: 03/08/2021 [facility] Losartan Potassium 100 MG Oral Tablet Losartan Potassium 100 MG 03/08/2021 12:00:00 AM EDT 1.0 {tablet} active Lo sartan Potassium 100 MG eCW1 ([facility]) Losartan Potassium 100 MG Oral Tablet Losartan Potassium 100 MG 03/08/2021 12:00:00 AM EDT 1.0 {tablet} active Lo sartan Potassium 100 MG eCW1 ([facility]) Losartan Potassium 100 MG Oral Tablet Losartan Potassium 100 MG 03/08/2021 12:00:00 AM EDT 1.0 {tablet} active Lo sartan Potassium 100 MG eCW1 ([facility]) Acetaminophen 325 MG / Hydrocodone Selwyn trate 5 MG Oral Tablet HYDROcodone- Acetaminophen 5-325 MG HYDROcodone-Acetaminophen 5-325 MG 03/08/2021 12:00:00 AM EDT 1.0 {tablet_as_needed} active HYDROcodone-Acetaminophen 5-325 MG eCW1 ([facility]) Losartan Potassium 100 MG Oral Tablet Losartan Potassium 100 MG 03/08/2021 12:00:00 AM EDT 1.0 {tablet} active Lo sartan Potassium 100 MG eCW1 ([facility]) Losartan Potassium 100 MG Oral Tablet Losartan Potassium 100 MG 03/08/2021 12:00:00 AM EDT 1.0 {tablet} active Lo sartan Potassium 100 MG eCW1 ([facility]) Losartan Potassium 100 MG Oral Tablet Losartan Potassium 100 MG 03/08/2021 12:00:00 AM EDT 1.0 {tablet} active Lo sartan Potassium 100 MG eCW1 ([facility]) Losartan Potassium 100 MG Oral Tablet Losartan Potassium 100 MG 03/08/2021 12:00:00 AM EDT 1.0 {tablet} active Lo sartan Potassium 100 MG eCW1 ([facility]) Losartan Potassium 100 MG Oral Tablet Losartan Potassium 100 MG 03/08/2021 12:00:00 AM EDT 1.0 {tablet} active Lo sartan Potassium 100 MG eCW1 ([facility]) Losartan Potassium 100 MG Oral Tablet Losartan Potassium 100 MG 03/08/2021 12:00:00 AM EDT 1.0 {tablet} active Lo sartan Potassium 100 MG eCW1 ([facility]) Losartan Potassium 100 MG Oral Tablet Losartan Potassium 100 MG 03/08/2021 12:00:00 AM EDT 1.0 {tablet} active Lo sartan Potassium 100 MG eCW1 ([facility]) 1 % 03/07/2021 12:00:00 AM EDT gel 100 APPLY 1 GRAM TOPICALLY TO AFFECTED AREAS ON HANDS 3 TIMES A DAY DIRECTED APPLY 1 GRAM TOPICALLY TO AFFECTED AREAS ON HANDS 3 TIMES A DAY DIRECTED SOLD: 04/05/2021 [facility] 150 mg 03/07/2021 12:00:00 AM EDT capsule,extended releas e 24hr 30 TAKE 1 CAPSULE BY MOUTH ONCE A DAY WITH FOOD TAKE 1 CAPSULE BY MOUTH ONCE A DAY WITH FOOD SOLD: 03/08/2021 [facility] 1 % 03/07/2021 12:00:00 AM EDT gel 100 APPLY 1 GRAM TOPICALLY TO AFFECTED AREAS ON HANDS 3 TIMES A DAY DIRECTED APPLY 1 GRAM TOPICALLY TO AFFECTED AREAS ON HANDS 3 TIMES A DAY DIRECTED SOLD: 03/08/2021 [facility] 400 mcg 02/07/2021 12:00:00 AM EDT tablet 30 TAKE 1 TABLET BY MOUTH DAILY DIRECTED TAKE 1 TABLET BY MOUTH DAILY DIRECTED SOLD: 04/05/2021 [facility] 90 mcg/actuation 02/07/2021 12:00:00 AM EDT HFA aerosol inha ler 8 INHALE TWO PUFFS BY MOUTH EVERY 4 HOURS NEEDED INHALE TWO PUFFS BY MOUTH EVERY 4 HOURS NEEDED SOLD: 02/07/2021 [facility] 300 mg 02/07/2021 12:00:00 AM EDT tablet 30 TAKE ONE TABLET BY MOUTH AT BEDTIME TAKE ONE TABLET BY MOUTH AT BEDTIME SOLD: 04/09/2021 [facility] 25 mg 02/07/2021 12:00:00 AM EDT tablet 9 TAKE 1 TABLET BY MOUTH NEEDED FOR HEADACHE MAY REPEAT DOSE IN 2HOURS TAKE 1 TABLET BY MOUTH NEEDED FOR HEADACHE MAY REPEAT DOSE IN 2HOURS SOLD: 02/07/2021 [facility] Alprazolam 0.5 MG Oral Tablet [Xanax] Xanax 0.5 MG Xanax 0.5 MG 02/07/2021 12:00:00 AM EDT 1.0 {tablet} active eCW1 ([facility]) 400 mcg 02/07/2021 12:00:00 AM EDT tablet 30 TAKE 1 TABLET BY MOUTH DAILY DIRECTED TAKE 1 TABLET BY MOUTH DAILY DIRECTED SOLD: 05/03/2021 [facility] 300 mg 02/07/2021 12:00:00 AM EDT tablet 30 TAKE ONE TABLET BY MOUTH AT BEDTIME TAKE ONE TABLET BY MOUTH AT BEDTIME SOLD: 05/08/2021 [facility] Acetaminophen 325 MG / Oxycodone Hydroch loride 10 MG Oral Tablet [Percocet] Percocet 10-325 MG Percocet 10-325 MG 02/07/2021 12:00:00 AM EDT 1.0 {tablet_as_needed} suspended Percocet 10 -325 MG eCW1 ([facility]) 300 mg 02/07/2021 12:00:00 AM EDT tablet 30 TAKE ONE TABLET BY MOUTH AT BEDTIME TAKE ONE TABLET BY MOUTH AT BEDTIME SOLD: 02/07/2021 [facility] 400 mcg 02/07/2021 12:00:00 AM EDT tablet 30 TAKE 1 TABLET BY MOUTH DAILY DIRECTED TAKE 1 TABLET BY MOUTH DAILY DIRECTED SOLD: 02/07/2021 [facility] Alprazolam 0.5 MG Oral Tablet ALPRAZOLAM 02/07/2021 12:00:00 AM EDT ta blet 10 TAKE ONE TABLET BY MOUTH TWICE A DAY MAXIMUM DAILY DOSE = 2 TABLETS TAKE ONE TABLET BY MOUTH TWICE A DAY MAXIMUM DAILY DOSE = 2 TABLETS SOLD: 02/07/2021 [facility] 10 mg 02/07/2021 12:00:00 AM EDT tablet 30 TAKE 1 TABLET BY MOUTH ONCE DAILY TAKE 1 TABLET BY MOUTH ONCE DAILY SOLD: 02/07/2021 [facility] Acetaminophen 325 MG / Oxycodone Hydroch loride 10 MG Oral Tablet [Percocet] Percocet 10-325 MG Percocet 10-325 MG 02/07/2021 12:00:00 AM EDT 1.0 {tablet_as_needed} suspended Percocet 10 -325 MG eCW1 ([facility]) 300 mg 02/07/2021 12:00:00 AM EDT tablet 30 TAKE ONE TABLET BY MOUTH AT BEDTIME TAKE ONE TABLET BY MOUTH AT BEDTIME SOLD: 03/08/2021 [facility] 400 mcg 02/07/2021 12:00:00 AM EDT tablet 30 TAKE 1 TABLET BY MOUTH DAILY DIRECTED TAKE 1 TABLET BY MOUTH DAILY DIRECTED SOLD: 03/08/2021 [facility] Acetaminophen 325 MG / Oxycodone Hydroch loride 10 MG Oral Tablet [Percocet] Percocet 10-325 MG Percocet 10-325 MG 02/07/2021 12:00:00 AM EDT 1.0 {tablet_as_needed} active eCW1 ([facility]) 50 mg 01/20/2021 12:00:00 AM EDT tablet 10 TAKE ONE TABLET BY MOUTH EVERY 8 HOURS NEEDED FOR ACUTE PAIN MAXIMUM DAILY DOSE = 3 TABLETS TAKE ONE TABLET BY MOUTH EVERY 8 HOURS NEEDED FOR ACUTE PAIN MAXIMUM DAILY DOSE = 3 TABLETS SOLD: 01/20/2021 [facility] Amoxicillin 875 MG / Clavulanate 125 MG Oral Tablet 87 5-125 mg AMOXICILLIN/POTASSIUM CLAV 01/20/2021 12:00:00 AM EDT tablet 14 TAKE ONE TABLET BY MOUTH EVERY 12 HOURS FOR 7 DAYS TAKE ONE TABLET BY MOUTH EVERY 12 HOURS FOR 7 DAYS SOLD: 01/20/2021 [facility] 10 mg 01/14/2021 12:00:00 AM EDT tablet 30 TAKE ONE TABLET BY MOUTH ONCE DAILY TAKE ONE TABLET BY MOUTH ONCE DAILY SOLD: 01/14/2021 [facility] 50 mcg/actuation 01/14/2021 12:00:00 AM EDT spray,suspension 16 USE 1 SPRAY IN EACH NOSTRIL ONCE A DAY USE 1 SPRAY IN EACH NOSTRIL ONCE A DAY SOLD: 01/14/2021 [facility] 90 mcg/actuation 01/14/2021 12:00:00 AM EDT HFA aerosol inha ler 8 INHALE 2 PUFFS BY MOUTH EVERY 4 HOURS NEEDED INHALE 2 PUFFS BY MOUTH EVERY 4 HOURS NEEDED SOLD: 01/14/2021 [facility] cetirizine hydrochloride 10 MG Oral Tablet [Zyrtec] Zy rTEC Allergy 10 MG ZyrTEC Allergy 10 MG 01/13/2021 12:00:00 AM EDT 1.0 {tablet} active ZyrTEC Allergy 10 MG eCW1 ([facility]) Fluticasone Propionate 50 MCG/ACT Fluticasone Propionate 50 MCG/ACT 01/13/2021 12:00:00 AM EDT 1.0 {spray_in_each_nostril} acti ve Fluticasone Propionate 50 MCG[facility] Fluticasone Propionate 50 MCG/ACT Fluticasone Propionate 50 MCG/ACT 01/13/2021 12:00:00 AM EDT 1.0 {spray_in_each_nostril} acti ve Fluticasone Propionate 50 MCG/ACT [facility]CW[facility] Fluticasone Propionate 50 MCG/ACT Fluticasone Propionate 50 MCG/ACT 01/13/2021 12:00:00 AM EDT 1.0 {spray_in_each_nostril} acti ve Fluticasone Propionate 50 MCG/ACT eCW1 ([facility]) Fluticasone Propionate 50 MCG/ACT Fluticasone Propionate 50 MCG/ACT 01/13/2021 12:00:00 AM EDT 1.0 {spray_in_each_nostril} acti ve Fluticasone Propionate 50 MCG/ACT [facility]CW1 [facility] cetirizine hydrochloride 10 MG Oral Tablet [Zyrtec] Zy rTEC Allergy 10 MG ZyrTEC Allergy 10 MG 01/13/2021 12:00:00 AM EDT 1.0 {tablet} active ZyrTEC Allergy 10 MG eCW1 ([facility] Fluticasone Propionate 50 MCG/ACT Fluticasone Propionate 50 MCG/ACT 01/13/2021 12:00:00 AM EDT 1.0 {spray_in_each_nostril} acti ve Fluticasone Propionate 50 MCG/ACT eCW1 ([facility]) cetirizine hydrochloride 10 MG Oral Tablet [Zyrtec] Zy rTEC Allergy 10 MG ZyrTEC Allergy 10 MG 01/13/2021 12:00:00 AM EDT 1.0 {tablet} active ZyrTEC Allergy 10 MG eCW1 ([facility]) cetirizine hydrochloride 10 MG Oral Tablet [Zyrtec] Zy rTEC Allergy 10 MG ZyrTEC Allergy 10 MG 01/13/2021 12:00:00 AM EDT 1.0 {tablet} active ZyrTEC Allergy 10 MG eCW1 ([facility]) cetirizine hydrochloride 10 MG Oral Tablet [Zyrtec] Zy rTEC Allergy 10 MG ZyrTEC Allergy 10 MG 01/13/2021 12:00:00 AM EDT 1.0 {tablet} active ZyrTEC Allergy 10 MG eCW1 ([facility]) cetirizine hydrochloride 10 MG Oral Tablet [Zyrtec] Zy rTEC Allergy 10 MG ZyrTEC Allergy 10 MG 01/13/2021 12:00:00 AM EDT 1.0 {tablet} active ZyrTEC Allergy 10 MG eCW1 ([facility]) Fluticasone Propionate 50 MCG/ACT Fluticasone Propionate 50 MCG/ACT 01/13/2021 12:00:00 AM EDT 1.0 {spray_in_each_nostril} acti ve Fluticasone Propionate 50 MCG/ACT eCW1 ([facility]) Fluticasone Propionate 50 MCG/ACT Fluticasone Propionate 50 MCG/ACT 01/13/2021 12:00:00 AM EDT 1.0 {spray_in_each_nostril} acti ve Fluticasone Propionate 50 MCG/ACT eCW1 ([facility]) cetirizine hydrochloride 10 MG Oral Tablet [Zyrtec] Zy rTEC Allergy 10 MG ZyrTEC Allergy 10 MG 01/13/2021 12:00:00 AM EDT 1.0 {tablet} active ZyrTEC Allergy 10 MG eCW1 ([facility]) 1 % 01/10/2021 12:00:00 AM EDT gel 100 APPLY 1 GRAM TOPICALLY TO AFFECTED AREAS ON HANDS 3 TIMES A DAY DIRECTED APPLY 1 GRAM TOPICALLY TO AFFECTED AREAS ON HANDS 3 TIMES A DAY DIRECTED SOLD: 02/07/2021 [facility] 1 % 01/10/2021 12:00:00 AM EDT gel 100 APPLY 1 GRAM TOPICALLY TO AFFECTED AREAS ON HANDS 3 TIMES A DAY DIRECTED APPLY 1 GRAM TOPICALLY TO AFFECTED AREAS ON HANDS 3 TIMES A DAY DIRECTED SOLD: 01/11/2021 [facility] 150 mg 11/29/2020 12:00:00 AM EDT capsule,extended releas e 24hr 30 TAKE 1 CAPSULE BY MOUTH ONCE A DAY WITH FOOD TAKE 1 CAPSULE BY MOUTH ONCE A DAY WITH FOOD SOLD: 02/07/2021 [facility] 150 mg 11/29/2020 12:00:00 AM EDT capsule,extended releas e 24hr 30 TAKE 1 CAPSULE BY MOUTH ONCE A DAY WITH FOOD TAKE 1 CAPSULE BY MOUTH ONCE A DAY WITH FOOD SOLD: 01/11/2021 [facility] 150 mg 11/29/2020 12:00:00 AM EDT capsule,extended releas e 24hr 30 TAKE 1 CAPSULE BY MOUTH ONCE A DAY WITH FOOD TAKE 1 CAPSULE BY MOUTH ONCE A DAY WITH FOOD SOLD: 12/12/2020 [facility] 1 % 11/01/2020 12:00:00 AM EDT gel 100 APPLY 1 GRAM TOPICALLY TO AFFECTED AREAS ON HANDS 3 TIMES A DAY DIRECTED APPLY 1 GRAM TOPICALLY TO AFFECTED AREAS ON HANDS 3 TIMES A DAY DIRECTED SOLD: 12/12/2020 [facility] 1 % 11/01/2020 12:00:00 AM EDT gel 100 APPLY 1 GRAM TOPICALLY TO AFFECTED AREAS ON HANDS 3 TIMES A DAY DIRECTED APPLY 1 GRAM TOPICALLY TO AFFECTED AREAS ON HANDS 3 TIMES A DAY DIRECTED SOLD: 11/02/2020 [facility] 150 mg 10/05/2020 12:00:00 AM EDT capsule,extended releas e 24hr 30 TAKE ONE CAPSULE BY MOUTH EVERY DAY WITH FOOD TAKE ONE CAPSULE BY MOUTH EVERY DAY WITH FOOD SOLD: 11/02/2020 [facility] 150 mg 10/05/2020 12:00:00 AM EDT capsule,extended releas e 24hr 30 TAKE ONE CAPSULE BY MOUTH EVERY DAY WITH FOOD TAKE ONE CAPSULE BY MOUTH EVERY DAY WITH FOOD SOLD: 10/05/2020 [facility] 24 HR venlafaxine 150 MG Extended Releas e Oral Capsule [Effexor] Effexor XR 150 MG Effexor XR 150 MG 10/04/2020 12:00:00 AM EDT 1.0 {capsule_with_f ood} active Effexor XR 150 MG eCW1 ([facility]) 25 mg 09/25/2020 12:00:00 AM EST tablet 9 1 TABLET NEEDED FOR HEADACHE, MAY REPEAT DOSE IN 2 HOURS, MAX DAILY DOSE = 4 1 TABLET NEEDED FOR HEADACHE, MAY REPEAT DOSE IN 2 HOURS, MAX DAILY DOSE = 4 SOLD: 11/02/2020 [facility] 25 mg 09/25/2020 12:00:00 AM EST tablet 9 1 TABLET NEEDED FOR HEADACHE, MAY REPEAT DOSE IN 2 HOURS, MAX DAILY DOSE = 4 1 TABLET NEEDED FOR HEADACHE, MAY REPEAT DOSE IN 2 HOURS, MAX DAILY DOSE = 4 SOLD: 09/25/2020 [facility] Sumatriptan 25 MG Oral Tablet [Imitrex] Imitrex 25 MG Imitre x 25 MG 09/24/2020 12:00:00 AM EST suspended Imitr ex 25 MG eCW1 ([facility]) Sumatriptan 25 MG Oral Tablet [Imitrex] Imitrex 25 MG Imitre x 25 MG 09/24/2020 12:00:00 AM EST active Imitrex 25 MG eCW1 ([facility]) Sumatriptan 25 MG Oral Tablet [Imitrex] Imitrex 25 MG Imitre x 25 MG 09/24/2020 12:00:00 AM EST active Imitrex 25 MG eCW1 ([facility]) Sumatriptan 25 MG Oral Tablet [Imitrex] Imitrex 25 MG Imitre x 25 MG 09/24/2020 12:00:00 AM EST active Imitrex 25 MG eCW1 ([facility]) Sumatriptan 25 MG Oral Tablet [Imitrex] Imitrex 25 MG Imitre x 25 MG 09/24/2020 12:00:00 AM EST suspended Imitr ex 25 MG eCW1 ([facility]) Sumatriptan 25 MG Oral Tablet [Imitrex] Imitrex 25 MG Imitre x 25 MG 09/24/2020 12:00:00 AM EST active Imitrex 25 MG eCW1 ([facility]) Sumatriptan 25 MG Oral Tablet [Imitrex] Imitrex 25 MG Imitre x 25 MG 09/24/2020 12:00:00 AM EST active Imitrex 25 MG eCW1 ([facility]) Sumatriptan 25 MG Oral Tablet [Imitrex] Imitrex 25 MG Imitre x 25 MG 09/24/2020 12:00:00 AM EST active Imitrex 25 MG eCW1 ([facility]) Sumatriptan 25 MG Oral Tablet [Imitrex] Imitrex 25 MG Imitre x 25 MG 09/24/2020 12:00:00 AM EST active Imitrex 25 MG eCW1 ([facility]) Sumatriptan 25 MG Oral Tablet [Imitrex] Imitrex 25 MG Imitre x 25 MG 09/24/2020 12:00:00 AM EST suspended Imitr ex 25 MG eCW1 ([facility]) Sumatriptan 25 MG Oral Tablet [Imitrex] Imitrex 25 MG Imitre x 25 MG 09/24/2020 12:00:00 AM EST suspended Imitr ex 25 MG eCW1 ([facility]) Sumatriptan 25 MG Oral Tablet [Imitrex] Imitrex 25 MG Imitre x 25 MG 09/24/2020 12:00:00 AM EST suspended Imitr ex 25 MG eCW1 ([facility]) 24 HR venlafaxine 75 MG Extended Release Oral Capsule [Effexor] Effexor XR 75 MG Effexor XR 75 MG 09/17/2020 12:00:00 AM EST 1.0 {capsule_with_fo od} active Effexor XR 75 MG eCW1 ([facility]) 24 HR venlafaxine 75 MG Extended Release Oral Capsule [Effexor] Effexor XR 75 MG Effexor XR 75 MG 09/17/2020 12:00:00 AM EST 1.0 {capsule_with_fo od} active Effexor XR 75 MG eCW1 ([facility]) 24 HR venlafaxine 75 MG Extended Release Oral Capsule [Effexor] Effexor XR 75 MG Effexor XR 75 MG 09/17/2020 12:00:00 AM EST 1.0 {capsule_with_fo od} active Effexor XR 75 MG eCW1 ([facility]) 24 HR venlafaxine 75 MG Extended Release Oral Capsule [Effexor] Effexor XR 75 MG Effexor XR 75 MG 09/17/2020 12:00:00 AM EST 1.0 {capsule_with_fo od} active Effexor XR 75 MG eCW1 ([facility]) 24 HR venlafaxine 75 MG Extended Release Oral Capsule [Effexor] Effexor XR 75 MG Effexor XR 75 MG 09/17/2020 12:00:00 AM EST 1.0 {capsule_with_fo od} active Effexor XR 75 MG eCW1 ([facility]) 75 mg 09/17/2020 12:00:00 AM EST capsule,extended releas e 24hr 30 TAKE ONE CAPSULE BY MOUTH EVERY DAY WITH FOOD TAKE ONE CAPSULE BY MOUTH EVERY DAY WITH FOOD SOLD: 09/17/2020 [facility] 1 % 09/07/2020 12:00:00 AM EST gel 100 APPLY 1 GRAM TOPICALLY TO AFFECTED AREAS ON HANDS 3 TIMES A DAY DIRECTED APPLY 1 GRAM TOPICALLY TO AFFECTED AREAS ON HANDS 3 TIMES A DAY DIRECTED SOLD: 09/07/2020 [facility] 1 % 09/07/2020 12:00:00 AM EST gel 100 APPLY 1 GRAM TOPICALLY TO AFFECTED AREAS ON HANDS 3 TIMES A DAY DIRECTED APPLY 1 GRAM TOPICALLY TO AFFECTED AREAS ON HANDS 3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 Units (Reference) CBC W/AUTOMATED DIFF COMPLETE BLOOD COUNT WBC 6.2 10/uL (4.2 - 11.0) RBC 4.86 10/uL (4.20 - 5.40) HEMOGLOBIN 13.5 g/dL (12.0 - 16.0) HEMATOCRIT 42.5 % (37.0 - 47.0) MCV 87.4 fL (81.0 - 101) MCH 27.8 pg (27.0 - 34.0) MCHC 31.8 g/dL (31.0 - 36.0) RDW 11.9 % (11.5 - 14.5) PLATELETS 369 10/uL (150 - 450) MPV 9.9 fL (7.4 - 10.4) NEUT 55.7 % (37.0 - 80.0) LYMPH 33.7 % (25.0 - 40.0) MONO 9.1 H % (3.0 - 8.0) EOS 0.8 % (0.0 - 7.0) BASO 0.5 % (0.0 - 2.5) %IG 0.2 H % (0.0 - 0.0) %NRBC 0.0 % (0.0 - 0.0) #NEUT 3.43 10/uL (2.00 - 6.90) #LYMPH 2.07 10/uL (0.60 - 3.40) #MONO 0.56 10/uL (0.00 - 0.90) #EOS 0.05 10/uL (0.00 - 0.70) #BASO 0.03 10/uL (0.00 - 0.20) #IG 0.01 10/uL (0.00 - 0.10) #NRBC 0.00 10/uL (0.00 - 0.00) MANUAL DIFF NOT INDICATED RBC MORPH NOT INDICATED 4 Clinical Report - Physicians/Mid Levels [facility] Emergency Department [address] [place] [address] Phone #: ext- [phone] 08/29/2020 12:40 Patient: JUHI ROLON Sex: F : 1975 Age: 44yCMP: (KATHRYN: 08/29/2020 13:47) ( MsgRcvd 021 15:19) Final results Test Result Flag Units (Reference) COMPREHENSIVE METABOLIC PANEL COMPREHENSIVE METABOLIC PANEL SODIUM 140 mEq/L (134 - 153) POTASSIUM 4.1 mEq/L (3.6 - 5.0) CHLORIDE 106 mEq/L (98 - 107) CO2 25 MEQ/L (22 - 30) GLUCOSE 78 MG/DL (70 - 99) BUN 8 MG/DL (7 - 21) CREATININE 0.6 L MG/DL (0.7 - 1.5) BUN/CREAT 13 (8 - 27) TOTAL PROTEIN 7.2 G/DL (6.3 - 8.2) ALBUMIN 3.6 L G/DL (3.9 - 5.0) GLOBULIN 3.6 H GM/DL (2.4 - 3.2) A/G RATIO 1.0 (0.8 - 2.0) CALCIUM 8.8 MG/DL (8.4 - 10.2) TOTAL BILI <0.7 MG/DL (0.2 - 1.3) ALKALINE PHOS 65 U/L (38 - 126) SGOT/AST 15 U/L (5 - 40) SGPT/ALT 11 U/L (7 - 56) ANION GAP 9.0 mmol/L (8.0 - 16.0) AGE 45 yrs NON-AA GFR >60 mL/min AFR AMER GFR >60 mL/min Male GFR Interprentation 20-49 yrs >60 mL/min Bmmxql78-65 yrs >56 mL/min Normal 60-69 yrs >49 mL/min Normal 70-79yrs>42 mL/min Normal 80 and above >35 mL/min Normal Female GFRInterpretation 20-39 yrs >60 mL/min Normal 40-49 yrs >58 mL/minNormal 50-59 yrs >51 mL/min Normal 60-69 yrs >45 mL/min Cnfjne67- 79 yrs >39 mL/min Normal 80 and above >32 mL/min NormalD-Dimer: (KATHRYN: 08/29/2020 13:47) ( MsgRcvd 08/29/2020 14:14) Final results Test Result Flag Units (Reference) D-DIMER QUANT 0.33 ug/mL (0.27 - 0.50)Influenza Nasal A B: (KATHRYN: 08/29/2020 14:00) ( MsgRcvd 08/29/2020 14:50) Final results Test Result Flag Units (Reference) INFLUENZA A NEGATIVE (NORMAL: NEGAT INFLUENZA B NEGATIVE (NORMAL: NEGAT INFLUENZA A REENTER NEGATIVE (NORMAL: NEGAT INFLUENZA B REENTER NEGATIVE (NORMAL: NEGAT PROCEDURAL CONTROL VALID KIT LOT # _[id number] 08/29/20.1449. . KIT EXP DATE _07.24.21 08/29/20.1449. .The Influenza A utilizing an isothermal nucleic acid amplification technology for thequalitativedetection of influenza A and B viral RNA.Negative results do not preclude influenza virus infection and shouldnot beused as the sole basis for diagnosis, treatment or other patient managementdecisions.Lactic Acid: (KATHRYN: 08/29/2020 13:47) ( [facility] 08/[facility] 15[facility]10) Final results Test Result Flag Units (Reference) LACTIC ACID 1.8 MMOL/L (0.2 - 2.2)LDH: (KATHRYN: 08/29/2020 13:47) ( [facility] 08/29/2020 15:11) Final results Test Result Flag Units (Reference) 5 Clinical Report - Physicians/Mid Levels [facility] Emergency Department [address] [place] [address] Phone #: ext- [phone] 08/29/2020 12:40 Patient: JUHI ROLON Sex: F : 1975 Age: 44y LDH 185 U/L (135 - 214)Troponin-T: (KATHRYN: 08/29/2020 13:47) ( [facility] 08/29/2020 14:29) Final results Test Result Flag Units (Reference) TROPONIN T <0.01 NG/ML (0.00 - 0.10) TROPONIN T0.1 ng/ml Recommended as the clinical threshold value forTroponin T.Urinalysis: (KATHRYN: 08/29/2020 14:00) ( [facility] 08/29/2020 14:48) Final results Test Result Flag Units (Reference) URINALYSIS URINALYSIS SOURCE R COLOR yellow (NORMAL: Yello CLARITY clear (NORMAL: Clear SPEC GRAVITY 1.010 (1.001 - 1.030 pH 6.5 (5 - 9) GLUCOSE NORM (NORMAL: Negat BILIRUBIN NEG (NORMAL: Negat KETONE NEG (NORMAL: Negat PROTEIN NEG (NORMAL: Negat NITRITE NEG (NORMAL: Negat BLOOD NEG (NORMAL: Negat LEUK EST NEG (NORMAL: Negat UROBILINOGEN NOR (less than 1.0 MICROSCOPIC Not IndicateChest Portable 1 View: (KATHRYN: 08/29/2020 12:56) ( [facility] 08/29/2020 15:18) In Progress Exam CHEST PORTABLE [facility] [address] [place] [address] PHONE: FAX: [phone] Name .................. : GONZALES Coley Acct Number.................. : [id number] ROOM. ................. : TR- 1B MR Number ................... : [id number] Stay type ............. : E/R Discharge Date......... ... : Admit Date ......... : 08/29/20 Admit Phys .................... : [facility] Date of ....... : 1975 Family Phys ................... : EVANGELISTA DA Phone .................. : [phone] Age .............. .................. : 44 Film# .................. .:[id number] Sex ................................. : F Unsigned transcriptions are preliminary reports and do not represent a medical or legal document CHEST PORTABLE [id number] COMPLETE:08/29/20 12:56 3784 Reason(s): cough, chest pain PORTABLE CHEST X-RAY: CLINICAL HISTORY: 44-year-old woman with a history of a cough. TECHNIQUE: Sitting chest radiograph study is obtained. COMPARISON: A prior study from 12/24/16 is used for comparison. 6 Clinical Report - Physicians/Mid Levels [facility] Emergency Department [address] [place] [address] Phone #: ext- [phone] 08/29/2020 12:40 Patient: JUHI ROLON Sex: F : 1975 Age: 44y FINDINGS: The heart, mediastinum and vascularity are within normal limits. There is a small area of left basilar atelectasis/infiltrate. No effusion is seen. IMPRESSION: Small area of left basilar atelectasis/infiltrate. Electronically Reviewed and Signed By DCTCHANELE , SIGNDATE, FRANSISCA Transcribe Initials: FERMIN , Transcribe Date: 08/29/20 15:13, Dictation Date: <<REPDIST>> Page 1 of 1.PROGRESS AND PROCEDURESCourse of Care: 15:30 08/29/20. blood work unremarkable. CXR showed atelectasis. patient has normalwbc as well as troponin and d dimer. her pain is reproducible on palpation. chest pain most likely muscular.will discharge her home after testing her for covid. advised tylenol for pain 15:35 08/29/20. chest pain improved with toradol. Patient counseled in person regarding the patient's stable condition, test results, diagnosis and need for follow-up. Patient agrees with plan of care. 15:34. Disposition: Discharged home in good condition (15:35). Condition: good and stable. Discharge decision based on the following: patient's condition is stable; patient's exam is stable; no abnormal test results; stable condition on repeat evaluation; social support is adequate; transportation is available; follow-up is available; clinical impression is consistent with outpatient treatment.CLINICAL IMPRESSION Chest wall painINSTRUCTIONS Do not work for ten days. (we tested you for COVID. please quarantine yourself for another 10 days or until results of your COVID is 7 Clinical Report - Physicians/Mid Levels [facility] Emergency Department [address] [place] [address] Phone #: ext- [phone] 08/29/2020 12:40 Patient: JUHI ROLON Sex: F : 1975 Age: 44y negative. your chest pain is muscular in origin .take tylenol for pain and cough medications as needed for cough). Your Current Medications: . No home medication. Follow-up: Return to the emergency department in three days if not better. Follow up with your healthcare provider in three days if not better. Reason for referral: evaluation. Summary of care provided to patient via paper.(Electronically signed by Arnulfo Hickey 08/29/2020 16:22) Name Value Range Interpretation Code Description Data Ashly rce(s) Supporting Document(s) ID Date Data Source [id number] 08/29/2020 02:00:00 PM EST [facility] Name Value Range Interpretation Code Description Data [facility](s) Supporting Document(s) SARS coronavirus 2 RNA Not Detected [facility] This lab was ordered by [facility] rahel and reported by [facility]. ID Date Data Source [id number] 09/01/2020 06:13:00 AM EST [facility] Name Value Range Interpretation Code Description Data [facility] Supporting Document(s) SARS-CoV-2, LENY Not Detected Not Detected [facility] This nucleic acid amplification test was developed and its performancecharacteristics determined by [employer]. Nucleic acidamplification tests include RT-PCR and TMA. This test has not beenFDA cleared or approved. This test has been authorized by FDA underan Emergency Use Authorization (EUA). This test is only authorizedfor the duration of time the declaration that circumstances existjustifying the authorization of the emergency use of in vitrodiagnostic tests for detection of SARS-CoV-2 virus and/or diagnosisof COVID-19 infection under section 564(b)(1) of the Act, 21 U.S.C.360bbb-3(b) (1), unless the authorization is terminated or revokedsooner.When diagnostic testing is negative, the possibility of a falsenegative result should be considered in the context of a patient'srecent exposures and the presence of clinical signs and symptomsconsistent with COVID- 19. An individual without symptoms of COVID-19and who is not shedding SARS-CoV-2 virus would expect to have anegative (not detected) result in this assay. ID Date Data Source [id number] 08/29/2020 02:49:00 PM EST [facility] Name Value Range Interpretation Code Description Data [facility] Supporting Document(s) Influenza virus A Ag [Presence] in Nasopharynx by Immunoassa y NEGATIVE NORMAL: NEGATIVE [facility] Influenza virus B Ag [Presence] in Nasopharynx by Immunoassa y NEGATIVE NORMAL: NEGATIVE [facility] NEGATIVENEGATIVE PROCEDURAL CO NTROL VALID KIT LOT # _[id number] 08/29/20.1449. . KIT EXP DATE _07.24.21 08/29/20.1449. .The Influenza A & B assay is a rapid molecular in vitro diagnostic testutilizing an isothermal nucleic acid amplification technology for thequalitative detection of influenza A and B viral RNA.Negative results do not preclude influenza virus infection and should not beused as the sole basis for diagnosis, treatment or other patient managementdecisions. ID Date Data Source [id number] 08/29/2020 02:48:00 PM EST [facility] Name Value Range Interpretation Code Description Data Ashly rce(s) Supporting Document(s) [facility] S[facility] R [facility] al COLOR yellow NORMAL: Yellow [facility] ospital CLARITY clear NORMAL: Clear [facility] Ho spital Specific gravity of Urine by Test strip 1.010 1.001 - 1.030 [facility] pH 6.5 5 - 9 [facility] al Glucose [Mass/volume] in Urine by Test strip NORM NORMAL: Negat [facility] Bilirubin.total [Presence] in Urine by Test strip NEG NORMAL: Negative [facility] Ketones [Presence] in Urine by Test strip NEG NORMAL: Negative [facility] Protein [Mass/volume] in Urine by Test strip NEG NORMAL: Negat [facility] Nitrite [Presence] in Urine by Test strip NEG NORMAL: Negative [facility] BLOOD NEG NORMAL: Negative [facility] Leukocyte esterase [Presence] in Urine by Test strip NEG NATACHA L: Negative [facility] Urobilinogen [Mass/volume] in Urine by Test strip NOR less halie n 1.0 mg/dL [facility] MICROSCOPIC Not Indicate [facility] H ospital ID Date Data Source [id number] 09/04/2020 07:26:00 AM EST [facility] [address] Name Value Range Interpretation Code Description Data Ashly rce(s) Supporting Document(s) Bacteria identified in Blood by Culture [facility] NO GROWTH AFTER 5 DAYS ID Date Data Source [id number] 09/05/2020 05:25:00 PM EST [facility] Name Value Range Interpretation Code Description Data Ashly rce(s) Supporting Document(s) CULTURE BLOOD [facility] spital _CULTURE BLOOD_ TEST PERFORM ED AT [address] [address] CLIA# [id number] SEE SCANNED REPORT{ PRELIM ID Date Data Source [id number] 08/29/2020 03:19:00 PM EST [facility] Name Value Range Interpretation Code Description Data Ashly rce(s) Supporting Document(s) BNP 188 PG/ML 0 - 125 H [facility] al ID Date Data Source [id number] 08/29/2020 03:19:[address] [facility] Name Value Range Interpretation Code Description Data Ashly rce(s) Supporting Document(s) COMPREHENSIVE METABOLIC PANEL [facility] COMPREHENSIVE METABOLIC PANEL Sodium [Moles/volume] in Serum or Plasma 140 mEq/L 134 - 153 [facility] Potassium [Moles/volume] in Serum or Plasma 4.1 mEq/L 3.6 - 5.0 [facility] Chloride [Moles/volume] in Serum or Plasma 106 mEq/L 98 - 107 [facility] Carbon dioxide, total [Moles/volume] in Serum or Plasma 25 MEQ/L 22 - 30 [facility] Glucose [Mass/volume] in Serum or Plasma 78 MG/DL 70 - 99 [facility] BUN 8 MG/DL 7 - 21 [facility] Creatinine [Mass/volume] in Serum or Plasma 0.6 MG/DL 0.7 - 1.5 L [facility] BUN/CREAT 13 8 - 27 [facility] Protein [Mass/volume] in Serum or Plasma 7.2 G/DL 6.3 - 8.2 [facility] Albumin [Mass/volume] in Serum or Plasma 3.6 G/DL 3.9 - 5.0 L [facility] Globulin [Mass/volume] in Serum by calculation 3.6 GM/DL 2.4 - 3.2 H [facility] A/G RATIO 1.0 0.8 - 2.0 [facility] Calcium [Mass/volume] in Serum or Plasma 8.8 MG/DL 8.4 - 10.2 [facility] Bilirubin.total [Mass/volume] in Serum or Plasma <0.7 MG/DL 0.2 - 1.3 [facility] Alkaline phosphatase [Enzymatic activity/volume] in Serum or Plasma 65 U/L 38 - 126 [facility] Aspartate aminotransferase [Enzymatic activity/volume] in Serum or Plasma 15 U/L 5 - 40 [facility] Alanine aminotransferase [Enzymatic activity/volume] in Seru m or Plasma 11 U/L 7 - 56 [facility] Anion gap 3 in Serum or Plasma 9.0 mmol/L 8.0 - 16.0 [facility] AGE 44 yrs [facility] al NON-AA GFR >60 mL/min [facility] Hosp ital AFR AMER GFR >60 mL/min [facility] Ho spital Male GFR In terprentation 20-49 yrs >60 mL/min Normal 50-59 yrs >56 mL/min Normal 60-69 yrs >49 mL/min Normal 70-79yrs >42 mL/min Normal 80 and above >35 mL/min Normal Female GFR Interpretation 20-39 yrs >60 mL/min Normal 40-49 yrs >58 mL/min Normal 50-59 yrs >51 mL/min Normal 60-69 yrs >45 mL/min Normal 70-79 yrs >39 mL/min Normal 80 and above >32 mL/min Normal ID Date Data Source [id number] 08/29/2020 03:11:[address] [facility] Name Value Range Interpretation Code Description Data Ashly rce(s) Supporting Document(s) Lactate dehydrogenase [Enzymatic activity/volume] in Serum o r Plasma 185 U/L 135 - 214 [facility] ID Date Data Source [id number] 08/29/2020 03:10:[address] [facility] Name Value Range Interpretation Code Description Data Ashly rce(s) Supporting Document(s) Lactate [Moles/volume] in Serum or Plasma 1.8 MMOL/L 0.2 - 2.2 [facility] ID Date Data Source [id number] 08/29/2020 02:29:[address] [facility] Name Value Range Interpretation Code Description Data Ashly rce(s) Supporting Document(s) TROPONIN T <0.01 NG/ML 0.00 - 0.10 [facility] ospital TROPONIN T0.1 ng/ml Recommended as the c linical threshold value forTroponin T. ID Date Data Source [id number] 08/29/2020 02:14:00 PM EST [facility] Name Value Range Interpretation Code Description Data Ashly rce(s) Supporting Document(s) Fibrin D-dimer FEU [Mass/volume] in Platelet poor plasma 0.33 ug /mL 0.27 - 0.50 [facility] ID Date Data Source [id number] 08/29/2020 02:12:00 PM EST [facility] Name Value Range Interpretation Code Description Data Ashly rce(s) Supporting Document(s) CBC W/AUTOMATED DIFF [facility] COMPLETE BLOOD COUNT Leukocytes [#/volume] in Blood by Automated count 6.2 10^3/uL 4.2 - 1 1.0 [facility] Erythrocytes [#/volume] in Blood by Automated count 4.86 10^6/uL 4. 20 - 5.40 [facility] Hemoglobin [Mass/volume] in Blood 13.5 g/dL 12.0 - 16.0 [facility] Hematocrit [Volume Fraction] of Blood by Automated count 42.5 % 3 7.0 - 47.0 [facility] Erythrocyte mean corpuscular volume [Entitic volume] by Auto mated count 87.4 fL 81.0 - 101 [facility] Erythrocyte mean corpuscular hemoglobin [Entitic mass] by Automated count 27.8 pg 27.0 - 34.0 [facility] Erythrocyte mean corpuscular hemoglobin concentration [Mass/volume] by Automated count 31.8 g/dL 31.0 - 36.0 [facility] Erythrocyte distribution width [Ratio] by Automated count 11.9 % 11.5 - 14.5 [facility] Platelets [#/volume] in Blood by Automated count 369 10^3/uL 150 - 45 0 [facility] Platelet mean volume [Entitic volume] in Blood by Automated count 9.9 fL 7.4 - 10.4 [facility] Neutrophils/100 leukocytes in Blood by Automated count 55.7 % 37. 0 - 80.0 [facility] Lymphocytes/100 leukocytes in Blood by Manual count 33.7 % 25.0 - 40.0 [facility] Monocytes/100 leukocytes in Blood by Automated count 9.1 % 3.0 - 8.0 H [facility] Eosinophils/100 leukocytes in Blood by Automated count 0.8 % 0.0 - 7.0 [facility] Basophils/100 leukocytes in Blood by Automated count 0.5 % 0.0 - 2.5 [facility] %IG 0.2 % 0.0 - 0.0 H [facility] al %NRBC 0.0 % 0.0 - 0.0 [facility] al Neutrophils [#/volume] in Blood by Automated count 3.43 10^3/uL 2.00 - 6.90 [facility] Lymphocytes [#/volume] in Blood by Automated count 2.07 10^3/uL 0.60 - 3.40 [facility] Monocytes [#/volume] in Blood by Automated count 0.56 10^3/uL 0.00 - 0.90 [facility] Eosinophils [#/volume] in Blood by Automated count 0.05 10^3/uL 0.00 - 0.70 [facility] Basophils [#/volume] in Blood by Automated count 0.03 10^3/uL 0.00 - 0.20 [facility] #IG 0.01 10^3/uL 0.00 - 0.10 [facility]sp[facility] #NRBC 0.00 10^3/uL 0.00 - 0.00 [facility] MANUAL DIFF NOT INDICATED [facility] RBC MORPH NOT INDICATED [facility] spital ID Date Data Source [id number] 09/05/2020 05:24:00 PM EST [facility] Name Value Range Interpretation Code Description Data Ashly rce(s) Supporting Document(s) CULTURE BLOOD [facility] spital _CULTURE BLOOD_ TEST PERFORM ED AT [address] [address] CLIA# [id number] SEE SCANNED REPORT{ PRELIM ID Date Data Source [id number] 07/05/2020 09:39:00 AM EST [facility] [address] [place] [address] PHONE: [phone] FAX: [phone] Name .................. : GONZALES Coley Acct Number.................. : [id number] ROOM. ................. : [address] Number ................... : [id number] Stay type ............. : E/R Discharge Date......... ... : 07/02/20 Admit Date ......... : 07/02/20 Admit Phys .................... : LAURA DEVAN Date of ....... : 1975 Family Phys ................... : NAIDU DA Phone .................. : [phone] Age ................................ : 44 Film# .................. .:[id number] Sex ................................. : F Unsigned transcriptions are preliminary reports and do not represent a medical or legal document KNEE COMPLETE-4 OR MORE VWS L [id number] COMPLETE:07/02/20 15:21 ARS 36 Reason(s): Knee Injury LEFT KNEE X-RAY: INDICATION: Trauma. FINDINGS/IMPRESSION: There is no evidence of fracture or dislocation. No significant degenerative change. No joint effusion. Electronically Reviewed and Signed By Saulo Sebastian M.D. , 07/05/20 09:39, [place] Transcribe Initials: FERMIN , Transcribe Date: 07/02/20 15:41, Dictation Date: Copy for: KAY MO via fax Copy for: LAURA Duron via fax Copy for: EVANGELISTA VELIZ via fax Copy for: EMERGENCY DEPT via modem Copy for: 710 MED REC DISCHARGED Page 1 of 1 Name Value Range Interpretation Code Description Data Ashly rce(s) Supporting Document(s) ID Date Data Source [id number] 07/02/2020 01:57:00 PM EST [facility] 1 OrderSheet [facility] Emergency Department [address] [place] [address] Phone #: ext- [phone] 07/02/2020 13:50 Patient: JUHI ROLON Sex: F : 1975 Age: 44yWEIGHT:98.4 kg (S) HEIGHT:63 inches (S) BMI:38.4ALLERGIES: IbuprofenCHIEF COMPLAINT: Lt, knee, Lt, footDIAGNOSIS: Sprain of jointLAB ORDERSOrder Description Priority Entered Acknowledged InitialedDIAGNOSTIC STUDY ORDERSOrder Description Priority Entered Acknowledged InitialedKnee Complete Left STAT 14:47 07/02/2020 14:56 Selam(Oxygen?(No)) Bobby Erwin R.N. PA; Reason for ordering with alerts: Clinical [...] Name Value Range Interpretation Code Description Data [facility] rce(s) Supporting Document(s) ID Date Data Source [id number] 07/02/2020 01:57:00 PM [place] [address] Medication Reconciliation Report [facility] Emergency Department [address] [place] [address] Phone #: [phone] 07/02/2020 13:50 Patient: JUHI ROLON Sex: F [...] Dispense 90 capsule.Refills: 0. Substitution permitted.Pharmacy - [facility] - [id number] ; [place], [place] [id number]. Phone: . -- AZAR Moffett Name Value Range Interpretation Code Description Data Ashly rce(s) Supporting Document(s) ID Date Data Source [id number] 07/02/2020 01:57:[address] [facility] 1 Medication Administration Record [facility] Emergency Department [address] [place] [address] Phone #: ext- [phone] 07/02/2020 13:50 Patient: JUHI ROLON Sex: F : 1975 Age: 44yWeight: 98.4 kgHeight/Length: 63 inBMI: 38.4ALLERGIES: Ibuprofen Date/Time Medication Administered Medication OrderedGiven TORADOL [IM] (KETOROLAC Toradol IM 60 mg15:08 07/02/2020 TROMETHAMINE)Kenyatta Myles RN Dose: 60 mg IM Name Value Range Interpretation Code Description Data Ashly rce(s) Supporting Document(s) ID Date Data Source [id number] 07/02/2020 01:57:[address] [facility] 1 General Instructions [facility] Emergency Department [address] [place] [address] Phone #: ext- [phone] 07/02/2020 13:50 Patient: JUHI ROLON Sex: F [...] Dispense 90 capsule.Refills: 0. Substitution permitted.Pharmacy - [facility] - [id number] ; [place], [place] [id number]. .Follow-up:Follow up with your doctor in two [...] ligaments on the outside of thejoint prevent iegw-hi-enfl motion. These are called the collateral ligaments.The [...] and difficulty walking. Initial 2 General Instructions [facility] Emergency Department [address] [place] [address] Phone #: ext- [phone] 07/02/2020 13:50 Patient: JUHI ROLON Sex: F : 1975 Age: 44ytreatment includes rest, splinting the knee to reduce movement of the joint, and icing the knee toreduce swelling and pain. You may use rumk-ygf-nayldui pain medicine to control pain, unlessanother medicine [...] that leg. If you were given a xvnj-zzq-ddch closure knee brace, you can remove it [...] splint. If you have to wear a tjeo-rpk-ahuy knee brace, you can open it to apply the ice pack, or heat, directly to the knee. Never put ice directly on the skin. Always wrap the ice in a towel or other type of cloth. You may use dacb-lph-vsqrewq pain medicine to control pain, unless another [...] any new findings thatmay affect your care.Call [phone] if you have: Shortness of breath 3 General Instructions [facility] Emergency Department [address] [place] [address] Phone #: ext- [phone] 07/02/2020 13:50 Patient: JUHI ROLON Sex: F : 1975 Age: 44y Chest painWhen to seek medical adviceCall your healthcare provider right away if any of these occur: Pain or swelling increases Swelling, redness, or pain in the calf or thigh [employer]. [address] [place] [address]. All rights reserved. This information is not [...] and free of drainage. 4 General Instructions [facility] Emergency Department [address] [place] [address] Phone #: ext- [phone] 07/02/2020 13:50 Patient: [...] doesn't go away after bandage is removed [id number] [employer]. [address] [place] [address]. All rights reserved. This information is not intended as asubstitute for professional medical care. Always follow your healthcare professional's instructions. You have been given the following additional information: Knee Sprain of the Collateral Ligaments CRYSTAL Wrap 5 General Instructions [facility] Emergency Department [address] [place] [address] Phone #: ext- [phone] 07/02/2020 13:50 Patient: JUHI ROLON Sex: F : 1975 Age: 44y(Electronically signed by AZAR Moffett 07/02/2020 21:52) Name Value Range Interpretation Code Description Data Ashly rce(s) Supporting Document(s) ID Date Data Source [id number] 07/02/2020 01:57:00 PM EST [facility] 1 Clinical Report - Nurses [facility] Emergency Department [address] [place] [address] Phone #: ext- [phone] 07/02/2020 13:50 Patient: [...] acute distress.Occurred at home. 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 (1300).SEPSIS SCREEN: SIRS SCREEN NEGATIVE. SEPSIS SCREEN NEGATIVE. No suspected or confirmedsigns of infection present. --14:29 07/02/20 Krystal Barlow R.N.14:22 07/02/20. BP: 156/114. MAP: 128. HR: 100. RR: 18. O2 saturation: 98%. Temp: 98 F. Pain levelnow: 01/29. --14:07/02/20 Krystal Barlow R.N.14:22 07/02/20. HR: 100. RR: [...] Function Test. 2 Clinical Report - Nurses [facility] Emergency Department [address] [place] [address] Phone #: ext- [phone] 07/02/2020 13:50 [id number] Sex[facility] F : 1975 Age: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 102 mm[Hg] 102 mm[Hg] eCW1 ([facility]) Body height 63 [in_i] 63 [in_i] eCW1 ([facility]) Body weight 236 [lb_av] 236 [lb_av] eCW1 ([facility]) Body mass index (BMI) [Ratio] 41.80 kg/m2 41.80 kg/m2 eCW1 ([facility]) Body temperature 97.5 [degF] 97.5 [degF] eCW1 ( [facility]) Heart rate 81 /min 81 /min eCW1 ([facility]) Respiratory rate 19 /min 19 /min eCW1 ([facility]) Oxygen saturation in Arterial blood by Pulse oximetry 100 % 100 % eCW1 ([facility]) Body mass index (BMI) [Ratio] 41.61 kg/m2 41.61 kg/m2 eCW1 ([facility]) Body height 62.5 [in_i] 62.5 [in_i] eCW1 ([facility]) Body temperature 97.2 [degF] 97.2 [degF] eCW1 ( [facility]) Respiratory rate 16 /min 16 /min eCW1 ([facility]) Body weight 231.2 [lb_av] 231.2 [lb_av] eCW1 ([facility]) Heart rate 78 /min 78 /min eCW1 ([facility]) Oxygen saturation in Arterial blood by Pulse oximetry 98 % 98 % eCW1 ([facility]) Body height 62.5 [in_i] 62.5 [in_i] eCW1 ([facility]) Body temperature 97.6 [degF] 97.6 [degF] eCW1 ( [facility]) Heart rate 94 /min 94 /min eCW1 ([facility]) Respiratory rate 18 /min 18 /min eCW1 ([facility]) Oxygen saturation in Arterial blood by Pulse oximetry 99 % 99 % eCW1 ([facility]) Body height 160.02 cm 160.02 cm Next[facility] ([facility]) Body weight 104.780 kg 104.780 kg [facility] ([facility]) Systolic blood pressure 136 mm[Hg] 136 mm[Hg] N extGen ([facility]) Diastolic blood pressure 86 mm[Hg] 86 mm[Hg] [employer] ([facility]) Body mass index (BMI) [Ratio] 40.92 kg/m2 Overweight 40.92 kg/m2 Next[employer] ([facility]) Body mass index (BMI) [Ratio] 42.29 kg/m2 42.29 kg/m2 eCW1 ([facility]) Body height 62.5 [in_i] 62.5 [in_i] eCW1 ([facility]) Body temperature 98.6 [degF] 98.6 [degF] eCW1 ( [facility]) Heart rate 77 /min 77 /min eCW1 ([facility]) Respiratory rate 18 /min 18 /min eCW1 ([facility]) Oxygen saturation in Arterial blood by Pulse oximetry 98 % 98 % eCW1 ([facility]) Body weight 235.0 [lb_av] 235.0 [lb_av] eCW1 ([facility]) Body height 62.5 [in_i] 62.5 [in_i] eCW1 ([facility]) Body weight 241.4 [lb_av] 241.4 [lb_av] eCW1 ([facility]) Body mass index (BMI) [Ratio] 43.44 kg/m2 43.44 kg/m2 eCW1 ([facility]) Body temperature 97.8 [degF] 97.8 [degF] eCW1 ( [facility]) Heart rate 72 /min 72 /min eCW1 ([facility]) Respiratory rate 17 /min 17 /min eCW1 ([facility]) Oxygen saturation in Arterial blood by Pulse oximetry 99 % 99 % eCW1 ([facility]) Body height 0.00 in Normal (applies to non-numeric resu lts) 0.00 in [facility] ([facility]) Body weight Measured 0.00 lbs Normal (applies to n on-numeric results) 0.00 lbs [facility] ([facility]) Systolic blood pressure 0 mm[Hg] Normal (applies t o non-numeric results) 0 mm[Hg] [facility] ([facility]) Diastolic blood pressure 0 mm[Hg] Normal (applies to non-numeric results) 0 mm[Hg] [facility] ([facility]) Body mass index (BMI) [Ratio] 0.00 kg/m2 No rmal (applies to non-numeric results) 0.00 kg/m2 [facility] ([facility]) ID Date Data Source [id number] 05/04/2020 09:13:00 AM EDT Vanessa [email or web address] Name Value Range Interpretation Code Description Data Source(s) Weight Measurement Method 8 8 [facility] Weight 3312 3312 [facility] pital Temperature Source 7 7 [facility] 18 [facility] Pulse Rate 84 84 [facility] pital Height 63 63 [facility] pital Blood Pressure 149/82 149/82 [facility] Weight Measurement Method 8 8 [facility] Weight 3312 3312 [facility] pital Temperature Source 7 7 [facility] Temperature 96.6 96.6 [facility] Res[facility] Rate 16 16 [facility] Pulse Rate 84 84 [facility] pital Height 63 63 [facility] pital Blood Pressure 149/82 149/82 [facility] Weight Measurement Method 8 8 [facility] Weight 3312 3312 [facility] pital Temperature Source 7 7 [facility] 96.6 [facility] 16 16 [facility] Pulse Rate 84 84 [facility] pital Height 63 63 [facility] pital Blood Pressure 149/82 149/82 [facility] Patient Treatment Plan of Care Planned Activity Planned Date Details Description Data Source (s) ferrous sulfate 325 MG Delayed Release Oral Tablet 05/09/2021 12 :00:00 AM EDT eCW1 ([facility]) ferrous sulfate 325 MG Delayed Release Oral Tablet 05/09/2021 12 :00:00 AM EDT eCW1 ([facility]) Acetaminophen 325 MG / Hydrocodone Bitartrate 5 MG Ora l Tablet 04/18/2021 12:00:00 AM EDT eCW1 ([facility]) Alprazolam 0.5 MG Oral Tablet 04/18/2021 12:00:00 AM EDT eCW1 ([facility]) Acetaminophen 325 MG / Hydrocodone Bitartrate 5 MG Ora l Tablet 04/18/2021 12:00:00 AM EDT eCW1 ([facility]) Alprazolam 0.5 MG Oral Tablet 04/18/2021 12:00:00 AM EDT eCW1 ([facility]) Acetaminophen 325 MG / Hydrocodone Bitartrate 5 MG Ora l Tablet 04/18/2021 12:00:00 AM EDT eCW1 ([facility]) Alprazolam 0.5 MG Oral Tablet 04/18/2021 12:00:00 AM EDT eCW1 ([facility]) Alprazolam 0.5 MG Oral Tablet 04/15/2021 12:00:00 AM EDT eCW1 ([facility]) Alprazolam 0.5 MG Oral Tablet [Xanax] 04/15/2021 12:00:00 AM EDT eCW1 ([facility]) Alprazolam 0.5 MG Oral Tablet [Xanax] 04/15/2021 12:00:00 AM EDT eCW1 ([facility]) Alprazolam 0.5 MG Oral Tablet [Xanax] 04/15/2021 12:00:00 AM EDT eCW1 ([facility]) Acetaminophen 325 MG / Hydrocodone Bitartrate 5 MG Ora l Tablet 04/12/2021 12:00:00 AM EDT eCW1 ([facility]) Acetaminophen 325 MG / Hydrocodone Bitartrate 5 MG Ora l Tablet 04/12/2021 12:00:00 AM EDT eCW1 ([facility]) Acetaminophen 325 MG / Hydrocodone Bitartrate 5 MG Ora l Tablet 04/12/2021 12:00:00 AM EDT eCW1 ([facility]) Acetaminophen 325 MG / Hydrocodone Bitartrate 5 MG Ora l Tablet 04/12/2021 12:00:00 AM EDT eCW1 ([facility]) Acetaminophen 325 MG / Hydrocodone Bitartrate 5 MG Ora l Tablet 04/06/2021 12:00:00 AM EDT eCW1 ([facility]) Acetaminophen 325 MG / Hydrocodone Bitartrate 5 MG Ora l Tablet 04/06/2021 12:00:00 AM EDT eCW1 ([facility]) Acetaminophen 325 MG / Hydrocodone Bitartrate 5 MG Ora l Tablet 03/21/2021 12:00:00 AM EDT eCW1 ([facility]) Acetaminophen 325 MG / Hydrocodone Bitartrate 5 MG Ora l Tablet 03/21/2021 12:00:00 AM EDT eCW1 ([facility]) Alprazolam 0.5 MG Oral Tablet [Xanax] 03/21/2021 12:00:00 AM EDT eCW1 ([facility]) Losartan Potassium 100 MG Oral Tablet 03/08/2021 12:00:00 AM EDT eCW1 ([facility]) Alprazolam 0.5 MG Oral Tablet [Xanax] 03/08/2021 12:00:00 AM EDT eCW1 ([facility]) Losartan Potassium 100 MG Oral Tablet 03/08/2021 12:00:00 AM EDT eCW1 ([facility]) Acetaminophen 325 MG / Hydrocodone Bitartrate 5 MG Ora l Tablet 03/08/2021 12:00:00 AM EDT eCW1 ([facility]) Alprazolam 0.5 MG Oral Tablet [Xanax] 02/07/2021 12:00:00 AM EDT eCW1 ([facility]) cetirizine hydrochloride 10 MG Oral Tablet [Zyrtec] 01/14/20 21 12:00:00 AM EDT eCW1 ([facility]) Fluticasone Propionate 50 MCG/ACT 01/13/2021 12:00:00 AM EDT eCW1 ([facility]) cetirizine hydrochloride 10 MG Oral Tablet [Zyrtec] 01/14/20 21 12:00:00 AM EDT eCW1 ([facility]) Fluticasone Propionate 50 MCG/ACT 01/13/2021 12:00:00 AM EDT eCW1 ([facility]) Fluticasone Propionate 50 MCG/ACT 01/13/2021 12:00:00 AM EDT eCW1 ([facility]) cetirizine hydrochloride 10 MG Oral Tablet [Zyrtec] 01/14/20 21 12:00:00 AM EDT eCW1 ([facility]) Fluticasone Propionate 50 MCG/ACT 01/13/2021 12:00:00 AM EDT eCW1 ([facility]) cetirizine hydrochloride 10 MG Oral Tablet [Zyrtec] 01/14/20 21 12:00:00 AM EDT eCW1 ([facility]) 24 HR venlafaxine 150 MG Extended Release Oral Capsule [Effexor] 10/04/2020 12:00:00 AM EDT eCW1 ([facility]) Sumatriptan 25 MG Oral Tablet [Imitrex] 09/24/2020 12:00:00 AM EST eCW1 ([facility]) Sumatriptan 25 MG Oral Tablet [Imitrex] 09/24/2020 12:00:00 AM EST eCW1 ([facility]) Sumatriptan 25 MG Oral Tablet [Imitrex] 09/24/2020 12:00:00 AM EST eCW1 ([facility]) Sumatriptan 25 MG Oral Tablet [Imitrex] 09/24/2020 12:00:00 AM EST eCW1 ([facility]) Sumatriptan 25 MG Oral Tablet [Imitrex] 09/24/2020 12:00:00 AM EST eCW1 ([facility]) Diclofenac Sodium 1 % 06/25/2020 12:00:00 AM EST eCW1 ([facility]) physical therapy eval and tx - 06/25/2020 12:00:00 AM EST eCW1 ([facility]) Diclofenac Sodium 1 % 06/25/2020 12:00:00 AM EST eCW1 ([facility]) physical therapy eval and tx - 06/25/2020 12:00:00 AM EST eCW1 ([facility]) Etonogestrel 68 MG Drug Implant [Nexplanon] 08/30/2018 12:00:00 AM EST Next[employer] ([facility])
[2021-05-14] MEDS ORDERED: CETI-24 (19:13)
[2021-05-14] MEDS ORDERED: MULT400T10 (19:13)
[2021-05-14] MEDS ORDERED: GABA-1171 (19:13)
[2021-05-14] MEDS ORDERED: HYDR-3713 (19:13)
[2021-05-14] MEDS ORDERED: FLUT15.820 (19:13)
[2021-05-14] MEDS ORDERED: DICL1GEL3 (19:13)
[2021-05-14] MEDS ORDERED: ALPR0.5T3 (19:13)
[2021-05-14] MEDS ORDERED: LOSA100T50 (19:13)
[2021-05-14] MEDS ORDERED: EPIN0.3I11 (19:13)
[2021-05-14] MEDS ORDERED: VENL150C43 (19:13)
[2021-05-14] MEDS ORDERED: QUET300T2 (19:13)
[2021-05-14] MEDS ORDERED: SUMA25TA3 (19:13)
--- OUTSIDE RECORDS SUMMARY | 2021-05-15 00:30 | CCD ---
Author Author [facility] Organization [facility] Address Unknown Phone Unavailable Care Team Providers Care Pit Laborer Name Role Phone Riley Montez MD Unavailable [...] Unavailable Unavailable Oliverio Alba PA Unavailable Unavailable [place], Oliverio ASKEW Unavailable Unavailable [place], Oliverio ASKEW Unavailable Unavailable WILLA, Fernie CHAU Unavailable Unavailable CANELA, RODRIGO DELGADOA Unavailable Unavailable MILEY, DELGADO SOAP PRESS FEEDER Unavailable Unavailable MILEY, DELGADO SOAP PRESS FEEDER Unavailable Unavailable MILEY, DELGADO SOAP PRESS FEEDER Unavailable Unavailable MILEY, DELGADO SOAP PRESS FEEDER Unavailable Unavailable MILEY, DELGADO SOAP PRESS FEEDER Unavailable Unavailable MILEY, DELGADO SOAP PRESS FEEDER Unavailable Unavailable MILEY, DELGADO SOAP PRESS FEEDER Unavailable Unavailable CANELA, Oliverio DUCKWORTH MD Unavailable [...] ALFREDO PA Unavailable Unavailable OAKLEY, R NAVI SOAP PRESS FEEDER Unavailable Unavailable OAKLEY, R NAVI SOAP PRESS FEEDER Unavailable Unavailable OAKLEY, R NAVI SOAP PRESS FEEDER Unavailable Unavailable OAKLEY, R NAVI SOAP PRESS FEEDER Unavailable Unavailable OAKLEY, R NAVI SOAP PRESS FEEDER Unavailable Unavailable OAKLEY, R NAVI SOAP PRESS FEEDER Unavailable Unavailable OAKLEY, R NAVI SOAP PRESS FEEDER Unavailable Unavailable OAKLEY, R NAVI SOAP PRESS FEEDER Unavailable Unavailable OAKLEY, R NAVI SOAP PRESS FEEDER Unavailable Unavailable OAKLEY, R NAVI SOAP PRESS FEEDER Unavailable Unavailable OAKLEY, R NAVI SOAP PRESS FEEDER Unavailable Unavailable OAKLEY, R NAVI SOAP PRESS FEEDER Unavailable Unavailable OAKLEY, R NAVI SOAP PRESS FEEDER Unavailable Unavailable OAKLEY, R NAVI SOAP PRESS FEEDER Unavailable Unavailable OAKLEY, R NAVI SOAP PRESS FEEDER Unavailable Unavailable OAKLEY, R NAVI SOAP PRESS FEEDER Unavailable Unavailable OAKLEY, R NAVI SOAP PRESS FEEDER Unavailable Unavailable OAKLEY, R NAVI SOAP PRESS FEEDER Unavailable Unavailable OAKLEY, R NAVI SOAP PRESS FEEDER Unavailable Unavailable OAKLEY, R NAVI SOAP PRESS FEEDER Unavailable Unavailable OAKLEY, R NAVI SOAP PRESS FEEDER Unavailable Unavailable OAKLEY, R NAVI SOAP PRESS FEEDER Unavailable Unavailable OAKLEY, R NAVI SOAP PRESS FEEDER Unavailable Unavailable OAKLEY, R NAVI SOAP PRESS FEEDER Unavailable Unavailable OAKLEY, R NAVI SOAP PRESS FEEDER Unavailable Unavailable OAKLEY, R NAVI SOAP PRESS FEEDER Unavailable Unavailable OAKLEY, R NAVI SOAP PRESS FEEDER Unavailable Unavailable OAKLEY, R NAVI SOAP PRESS FEEDER Unavailable Unavailable OAKLEY, R NAVI SOAP PRESS FEEDER Unavailable Unavailable OAKLEY, R NAVI SOAP PRESS FEEDER Unavailable Unavailable OAKLEY, R NAVI SOAP PRESS FEEDER Unavailable Unavailable OAKLEY, R NAVI SOAP PRESS FEEDER Unavailable Unavailable OAKLEY, R NAVI SOAP PRESS FEEDER Unavailable Unavailable OAKLEY, R NAVI SOAP PRESS FEEDER Unavailable Unavailable OAKLEY, R NAVI SOAP PRESS FEEDER Unavailable Unavailable OAKLEY, R NAVI SOAP PRESS FEEDER Unavailable Unavailable OAKLEY, R NAVI SOAP PRESS FEEDER Unavailable Unavailable OAKLEY, R NAVI SOAP PRESS FEEDER Unavailable Unavailable OAKLEY, R NAVI SOAP PRESS FEEDER Unavailable Unavailable OAKLEY, R NAVI SOAP PRESS FEEDER Unavailable Unavailable OAKLEY, R NAVI SOAP PRESS FEEDER Unavailable Unavailable OAKLEY, R NAVI SOAP PRESS FEEDER Unavailable Unavailable OAKLEY, R NAVI SOAP PRESS FEEDER Unavailable Unavailable OAKLEY, R NAVI SOAP PRESS FEEDER Unavailable Unavailable Alaniz, Sarah Jasso MD Unavailable [...] Alaniz, Sarah Jasso MD Unavailable Unavailable Alaniz, L Romero MD Unavailable Unavailable AlanizSarah hoffman [...] DESI MD Unavailable Unavailable [facility] Unavailable Unavailable Ting, Reginah W Caitie MOTOR MECHANIC-C Unavailable Unavailabl e Ting, Serginayisel W Caitie MOTOR MECHANIC-C Unavailable Unavailabl e Ting, Serginayisel W Caitie MOTOR MECHANIC-C Unavailable Unavailabl e Ting, Edda W Caitie MOTOR MECHANIC-C Unavailable Unavailabl e Ting, Edda W Caitie MOTOR MECHANIC-C Unavailable Unavailabl e Ting, Reginayisel W Caitie MOTOR MECHANIC-C Unavailable Unavailabl e Ting, Edda W Caitie MOTOR MECHANIC-C Unavailable Unavailabl e Ting, Edda W Caitie MOTOR MECHANIC-C Unavailable Unavailabl e Ting, Serginayisel W Caitie MOTOR MECHANIC-C Unavailable Unavailabl e Ting, Edda W Caitie MOTOR MECHANIC-C Unavailable Unavailabl e Ting, Edda W Caitie MOTOR MECHANIC-C Unavailable Unavailabl e Ting, Edda W Caitie MOTOR MECHANIC-C Unavailable Unavailabl e Ting, Edda W Caitie MOTOR MECHANIC-C Unavailable Unavailabl e Ting, Edda W Caitie MOTOR MECHANIC-C Unavailable Unavailabl e Ting, Edda W Caitie MOTOR MECHANIC-C Unavailable Unavailabl e Ting, Edda W Caitie MOTOR MECHANIC-C Unavailable Unavailabl e Ting, Edda W Caitie MOTOR MECHANIC-C Unavailable Unavailabl e Ting, Edda W Caitie MOTOR MECHANIC-C Unavailable Unavailabl e Ting, Regmimi W Caitie MOTOR MECHANIC-C Unavailable Unavailabl e Ting, Regmimi W Caitie MOTOR MECHANIC-C Unavailable Unavailabl e Ting, Reginayisel W Caitie MOTOR MECHANIC-C Unavailable Unavailabl e Ting, Regina W Caitie MOTOR MECHANIC-C Unavailable Unavailabl e Ting, Reginayisel W Caitie MOTOR MECHANIC-C Unavailable Unavailabl e Ting, Regmimi W Caitie MOTOR MECHANIC-C Unavailable Unavailabl e Ting, Regtamar W Caitie MOTOR MECHANIC-C Unavailable Unavailabl e Ting, Regina W Caitie MOTOR MECHANIC-C Unavailable Unavailabl e Ting, Regina W Caitie MOTOR MECHANIC-C Unavailable Unavailabl e Ting, Regtamarh W Caitie MOTOR MECHANIC-C Unavailable Unavailabl e Ting, Regtamarh W Caitie MOTOR MECHANIC-C Unavailable Unavailabl e Ting, Reginah W Caitie MOTOR MECHANIC-C Unavailable Unavailabl e Ting, Reginah W Caitie MOTOR MECHANIC-C Unavailable Unavailabl e Ting, Reginah W Caitie MOTOR MECHANIC-C Unavailable Unavailabl e GARRETT, ANNABELLA PA Unavailable [...] PA Unavailable Unavailable DAVID CHOE JR Unavailable [phone] DAVID CHOE JR Unavailable [phone] DAVID CHOE JR Unavailable [phone] TATONE, RADHA PA Unavailable Unavailable TATONE, RADHA [...] P Nick PA Unavailable Unavailable Seo, P Inck PA Unavailable Unavailable Seo, P Nick PA Unavailable Unavailable Seo, P Nick PA Unavailable Unavailable Seo, P Nick PA Unavailable Unavailable Seo, P Nick PA Unavailable Unavailable Seo, P Nick PA Unavailable Unavailable Seo, P Nick PA Unavailable Unavailable Seo, P Nick PA Unavailable Unavailable Seo, P Nick PA Unavailable Unavailable Willa Otilia Unavailable [phone] Otilia Crouch Unavailable [phone] RODRIGO PEREZ Unavailable Unavailable Gabriel Ball Unavailable [phone] Gabriel Ball Unavailable [phone] Gabriel Ball Unavailable [phone] Gabriel Ball Unavailable [phone] Gabriel Ball Unavailable [phone] Gabriel Ball Unavailable [phone] Sarah VENTURA PA Unavailable Unavailable Sarah VENTURA [...] L SHERI PA Unavailable Unavailable LORENZO, L SEHRI PA Unavailable Unavailable LORENZO, L SHERI PA Unavailable Unavailable LORENZO, L SHERI PA Unavailable Unavailable LORENZO, L SHERI PA Unavailable Unavailable LORENZO, L SHERI PA Unavailable Unavailable Yeni, K Roxy PMH-SOAP PRESS FEEDER Unavailable Unavailable [place], K Roxy PMH-SOAP PRESS FEEDER Unavailable Unavailable Yeni, K Roxy PMH-SOAP PRESS FEEDER Unavailable Unavailable [place], K Roxy PMH-SOAP PRESS FEEDER Unavailable Unavailable [place], K Roxy PMH-SOAP PRESS FEEDER Unavailable Unavailable [place], K Roxy PMH-SOAP PRESS FEEDER Unavailable Unavailable [place], K Roxy PMH-SOAP PRESS FEEDER Unavailable Unavailable [place], K Roxy PMH-SOAP PRESS FEEDER Unavailable Unavailable Edilberto, A Sandra MOTOR MECHANIC Unavailable Unavailable Edilberto, A Sandra MOTOR MECHANIC Unavailable Unavailable Edilberto, A Sandra MOTOR MECHANIC Unavailable Unavailable Edilberto, A Sandra MOTOR MECHANIC Unavailable Unavailable Edilberto, A Sandra MOTOR MECHANIC Unavailable Unavailable Edilberto, A Sandra MOTOR MECHANIC Unavailable Unavailable Edilberto, A Sandra MOTOR MECHANIC Unavailable Unavailable Edilberto, A Sandra MOTOR MECHANIC Unavailable Unavailable Edilberto, A Sandra MOTOR MECHANIC Unavailable Unavailable Edilberto, A Sandra MOTOR MECHANIC Unavailable Unavailable Edilberto, A Sandra MOTOR MECHANIC Unavailable Unavailable Edilberto, A Sandra MOTOR MECHANIC Unavailable Unavailable Edilberto, A Sandra MOTOR MECHANIC Unavailable Unavailable Edilberto, A Sandra MOTOR MECHANIC Unavailable Unavailable Edilberto, A Sandra MOTOR MECHANIC Unavailable Unavailable Edilberto, A Sandra MOTOR MECHANIC Unavailable Unavailable Edilberto, A Sandra MOTOR MECHANIC Unavailable Unavailable Edilberto, A Sandra MOTOR MECHANIC Unavailable Unavailable Edilberto, A Sandra MOTOR MECHANIC Unavailable Unavailable Edilberto, A Sandra MOTOR MECHANIC Unavailable Unavailable Edilberto, A Sandra MOTOR MECHANIC Unavailable Unavailable Edilberto, A Sandra MOTOR MECHANIC Unavailable Unavailable Edilberto, A Sandra MOTOR MECHANIC Unavailable Unavailable Edilberto, A Sandra MOTOR MECHANIC Unavailable Unavailable Edilberto, A Sandra MOTOR MECHANIC Unavailable Unavailable Edilberto, A Sandra MOTOR MECHANIC Unavailable Unavailable Edilberto, A Sandra MOTOR MECHANIC Unavailable Unavailable Edilberto, A Sandra MOTOR MECHANIC Unavailable Unavailable Edilberto, A Sandra MOTOR MECHANIC Unavailable Unavailable Edilberto, A Sandra MOTOR MECHANIC Unavailable Unavailable Edilberto, A Sandra MOTOR MECHANIC Unavailable Unavailable Edilberto, A Sandra MOTOR MECHANIC Unavailable Unavailable Edilberto, A Sandra MOTOR MECHANIC Unavailable Unavailable Edilberto, A Sandra MOTOR MECHANIC Unavailable Unavailable Edilberto, A Sandra MOTOR MECHANIC Unavailable Unavailable Edilberto, A Sandra MOTOR MECHANIC Unavailable Unavailable Edilberto, A Sandra MOTOR MECHANIC Unavailable Unavailable Edilberto, A Sandra MOTOR MECHANIC Unavailable Unavailable Edilberto, A Sandra MOTOR MECHANIC Unavailable Unavailable Edilberto, A Sandra MOTOR MECHANIC Unavailable Unavailable Edilberto, A Sandra MOTOR MECHANIC Unavailable Unavailable Edilberto, A Sandra MOTOR MECHANIC Unavailable Unavailable Edilberto, A Sandra MOTOR MECHANIC Unavailable Unavailable Edilberto, A Sandra MOTOR MECHANIC Unavailable Unavailable Edilberto, A Sandra MOTOR MECHANIC Unavailable Unavailable Edilberto, A Sandra MOTOR MECHANIC Unavailable Unavailable Edilberto, A Sandra MOTOR MECHANIC Unavailable Unavailable Edilberto, A Sandra MOTOR MECHANIC Unavailable Unavailable Edilberto, A Sandra MOTOR MECHANIC Unavailable Unavailable Edilberto, A Sandra MOTOR MECHANIC Unavailable Unavailable Edilberto, A Sandra MOTOR MECHANIC Unavailable Unavailable Edilberto, A Sandra MOTOR MECHANIC Unavailable Unavailable CHANLIECKYMBERLY, Ketty ARREDONDO MD Unavailable Unavailable CHANLIECCOKetty MD Unavailable Unavailable CHANLIECCOKetty MD Unavailable Unavailable CHANLIECCOKetty MD Unavailable Unavailable CHANLIECCOKetty MD Unavailable Unavailable CHANLIECCOKetty MD Unavailable Unavailable CHANLIECCOKetty MD Unavailable Unavailable CHANLIECCOKetty MD Unavailable Unavailable CHANLIECCOKetty MD Unavailable Unavailable CHANLIECKetty TRAYLOR MD Unavailable Unavailable CHANLIECKetty TRAYLOR MD Unavailable Unavailable Fish, Larisa Soto MPAS, PA-C Unavailable Unavailabl e Fish, Larisa Soto [facility], PA-C Unavailable Unavailabl e Fish, Larisa Soto [facility], PA-C Unavailable Unavailabl e Fish, [facility], PA-C Unavailable Unavailabl e Fish, [facility], PA-C Unavailable Unavailabl e Fish, [facility], PA-C Unavailable Unavailabl e Fish, [facility], PA-C Unavailable Unavailabl e Fish, [facility], PA-C Unavailable Unavailabl e Fish, [facility], PA-C Unavailable Unavailabl e Fish, [facility], PA-C Unavailable Unavailabl e Fish, [facility], PA-C Unavailable Unavailabl e Fish, [facility], PA-C Unavailable Unavailabl e Fish, [facility], PA-C Unavailable Unavailabl e Fish, [facility], PA-C Unavailable Unavailabl e Fish, [facility], PA-C Unavailable Unavailabl e Fish, [facility], PA-C Unavailable Unavailabl e Fish, [facility], PA-C Unavailable Unavailabl e Fish, [facility], PA-C Unavailable Unavailabl e Fish, [facility], PA-C Unavailable Unavailabl e Fish, [facility], PA-C Unavailable Unavailabl e Fish, [facility], PA-C Unavailable Unavailabl e Fish, [facility], PA-C Unavailable Unavailabl e Fish, [facility], PA-C Unavailable Unavailabl e Fish, [facility], PA-C Unavailable Unavailabl e Fish, [facility], PA-C Unavailable Unavailabl e Fish, [facility], PA-C Unavailable Unavailabl e Fish, [facility], PA-C Unavailable Unavailabl e Fish, [facility], PA-C Unavailable Unavailabl e Fish, [facility], PA-C Unavailable Unavailabl e Fish, [facility], PA-C Unavailable Unavailabl e Fish, [facility], PA-C Unavailable Unavailabl e Fish, [facility], PA-C Unavailable Unavailabl e Fish, [facility], PA-C Unavailable Unavailabl e Fish, [facility], PA-C Unavailable Unavailabl e Fish, Larisa Soto [...] ZAPIEN MD Unavailable Unavailable NAIDU SR, JOSE ALRFEDO ZAPIEN MD Unavailable Unavailable NAIDU SR, JOSE ALFREDO ZAPIEN MD Unavailable Unavailable RODRIGO CHOE JR Unavailable Unavailable Brennan, Nirav Unavailable Brennan, Nirav Unavailable MEDENT_[id number], [id number] Unavailable [phone] MEDENT_8646, [id number] Unavailable [phone] [facility]_8646, [id number] Unavailable [phone] MEDENT_8646, [id number] Unavailable [phone] MED[facility]_8646, [id number] Unavailable [phone] MEDENT_8646, [id number] Unavailable [phone] MEDENT_8646, [id number] Unavailable +[phone] MEDENT_8646, [id number] Unavailable +[phone] MEDENT_8646, [id number] Unavailable [phone] MEDENT_8646, [id number] Unavailable +[phone] MEDENT_8646, [id number] Unavailable +[phone] MEDENT_8646, [id number] Unavailable +[phone] MEDENT_8646, [id number] Unavailable MEDENT_8646, [id number] Unavailable [phone] MEDENT_8646, [id number] Unavailable +[phone] MEDENT_8646, [id number] Unavailable +[phone] [facility]_8646, [id number] Unavailable +[phone] MEDENT_8646, [id number] Unavailable +[phone] [facility]ENT_8646, [id number] Unavailable +[phone] MEDENT_8646, [id number] Unavailable +[phone] MEDENT_8646, [id number] Unavailable +[phone] MED[facility]_8646, [id number] Unavailable +[phone] MEDENT_8646, [id number] Unavailable +[phone] MEDENT_8646, [id number] Unavailable +[phone] MEDENT_8646, [id number] Unavailable +[phone] MEDENT_8646, [id number] Unavailable +[phone] MEDENT_8646, [id number] Unavailable [phone] Light, Ac Unavailable Unavailable Light, Ac Unavailable Unavailable Light, Ac Unavailable Unavailable Light, Ac Unavailable Unavailable Light, Ac Unavailable Unavailable Light, Ac Unavailable Unavailable Light, Ac Unavailable Unavailable Ilght, Ac Unavailable Unavailable Light, Ac Unavailable Unavailable [...] Ac Unavailable Unavailable REZA, Mamie. DESI Unavailable [phone] WERBLIN, Saul WEEKS Unavailable [phone] WERBLIN, Saul DESI Unavailable [phone] WERBLIN, Z. DESI Unavailable [phone] WERBLIN, Z. DESI Unavailable [phone] Fabiola Conway Unavailable PEREZ, P ALONSO PA-C [...] Unavailable Louis, W Desi RPA-C Unavailable Unavailable Oluis, W Desi RPA-C Unavailable Unavailable Louis, W [...] is protected by Article 27-F of the [facility] Public Health law. If you continue you may have access to information: Regarding HIV / AIDS; Provided by facilities licensed or operated by the [facility] Office of Mental Health; or Provided by the [facility] Office for People With Developmental Disabilities. If such information is present, then the following [facility] mandated warning applies: This information has [...] Release Oral Tablet Active Accu medic ([facility]) Drug allergy Drug allergy venom-honey bee (bee venom (bhupendra y bee)) Anaphylactic Shock [facility] Drug allergy Drug allergy [facility] [place] Family History Family Member Name Family Member Gender Family Member Status Date o f Status Description Data Source(s) Unknown Male Diagnosis 12/07/2015 12:00:00 AM EDT [facility] ([facility]) Unknown Male Diagnosis 12/07/2015 12:00:00 AM EDT [facility] ([facility]) Unknown Unknown Problem [facility] ([facility]) Encounters Encounter Providers Location Date Indications Data Source(s ) Outpatient Attender: Otilia CrouchAttender: OTILIA CROUCH 05/18/2021 12:00:00 AM [facility] Unknown [address] [facility] [address] 05/12/2021 12:00:00 AM EDT eCW1 (Critical access hospital) Outpatient Attender: Desi ASKEW 01:28:04 PM EDT - 05/08/2021 02:52:47 PM EDT [facility] ([facility] Outpatient [address] [facility] [address] 05/04/2021 12:00:00 AM EDT eCW1 (Critical access hospital) Outpatient 05/01/2021 09:07:17 PM EDT - 021 09:19:31 PM EDT [facility] ([facility]) Outpatient Attender: Romero Alaniz MD Physical Therapy 04/29/2021 0 8:45:00 AM EDT MEDENT ([facility]) OFFICE OUTPATIENT VISIT 15 MINUTES Attender: Brittany WOODRUFF PA-C Physical Therapy 04/25/2021 09:30:00 AM EDT MEDENT ([facility]) Outpatient Attender: OTILIA CROUCHAttender: Otilia Crouch [id number] 04/20/2021 12:00:00 AM EDT [facility] Unknown [address] [facility] [address] 04/19/2021 12:00:00 AM EDT eCW1 (Critical access hospital) [place] [address] [facility] [address] 04/18/2021 12:00:00 AM EDT eCW1 (Critical access hospital) Extended Individual Psychotherapy - 45 min Attender: Bebo Seals [facility] 04/14/2021 09:00:00 AM EDT - 04/14/2021 09:00:00 AM EDT [facility] ([facility]) Attender: Anjelica Seals 04/14/2021 12:00:00 AM E DT [facility] ([facility]) Unknown [address] [facility] [address] 04/13/2021 12:00:00 AM EDT eCW1 (Critical access hospital) Outpatient [address] [facility] [address] 04/12/2021 12:00:00 AM EDT eCW1 (Critical access hospital) Unknown [address] [address] 04/12/2021 12:00:00 AM EDT eCW1 (Critical access hospital) Unknown [address] [address] 04/12/2021 12:00:00 AM EDT eCW1 (Critical access hospital) Unknown [address] [address] 04/12/2021 12:00:00 AM EDT eCW1 (Critical access hospital) Emergency Attender: MURIEL Barreraerrer: [id number] MEDENT_[id number] 04/10/2021 10:00:00 PM EDT - 04/10/2021 10:01:[address] [facility] Patient discharged. Outpatient Attender: Gabriel Ball 04/08 08:00:27 PM EDT - 04/08/2021 08:24:39 PM EDT [facility] ([facility] ) Outpatient Attender: Ac Light Physical Therapy 04/06/2021 03:40:0 0 PM EDT [facility] ([facility]) Unknown [address] [facility] [address] 04/06/2021 12:00:00 AM EDT eCW1 (Critical access hospital) Outpatient Attender: LORE ORTIZ RPA 03/31 09:07:36 PM EDT - 03/31/2021 09:47:35 PM EDT [facility] ([facility] ) Psychiatric Diagnostic Evaluation (Non-Medical) Attender: Juliana Seals [facility] 03/31/2021 09:00:00 AM EDT - 03/31/2021 09:00:00 AM EDT [facility] ([facility]) Attender: Anjelica Seals 03/31/2021 12:00:00 AM E DT [facility] ([facility] [place] [address] [address] 03/30/2021 12:00:00 AM EDT eCW1 (Critical access hospital) Emergency Attender: MURIEL Singletoner: Nadine SUAREZ 03/15/2021 09:26:00 PM EDT - 03/15/2021 10:21:[address] [facility] Patient discharged. [place] [address] [address] 03/15/2021 12:00:00 AM EDT eCW1 (Critical access hospital) Extended Individual Psychotherapy - 45 min Attender: Bebo Seals [facility] 03/08/2021 11:00:00 AM EDT - 03/08/2021 11:00:00 AM EDT [facility] ([facility]) Outpatient [address] [facility] [address] 03/08/2021 12:00:00 AM EDT eCW1 (Critical access hospital) Attender: Anjelica Seals 03/08/2021 12:00:00 AM E DT [facility] ([facility]) [facility] 03/07/2021 12:00:00 AM EDT eCW1 ([facility]) Outpatient [facility] 02/16/2021 12:00:00 AM EDT eCW1 ([facility]) [facility] 02/16/2021 12:00:00 AM EDT eCW1 ([facility]) Outpatient [address] [facility] [address] 02/07/2021 12:00:00 AM EDT eCW1 (Critical access hospital) Outpatient Attender: Caitie HASSAN 02/04/2021 10:00:0 [address] [facility] Outpatient [facility] 02/04/2021 12:00:00 AM EDT eCW1 ([facility]) [facility]patient [facility] 02/02/2021 12:00:00 AM EDT eCW1 ([facility]) Outpatient Attender: Caitie CHRISTOPHERP-C 02/01/2021 03:30:[address] [facility] Admission cancelled. Disregard status an d admitted date. Emergency Attender: Nick ASKEW-CReferrer: Sandra carlin [facility] 01/19/2021 07:51:00 PM EDT - 01/19/2021 08:00:00 PM EDT [facility] Patient discharged. Outpatient Attender: Caitie CHRISTOPHERP-C 01/13/2021 02:30:[address] [facility] Outpatient [facility] 01/13/2021 12:00:00 AM EDT eCW1 ([facility]) Outpatient [facility] 01/13/2021 12:00:00 AM EDT eCW1 ([facility]) Outpatient [facility] 01/10/2021 12:00:00 AM EDT eCW1 ([facility]) Emergency Attender: SHERI Asher: Arpita Casanova [facility] EMERGENCY [facility]-ER 01/08/2021 04:25:00 PM EDT - 01/08/2021 06:01:[address] [facility] Patient discharged. Outpatient Attender: DESI GROVES MD 01/03/2021 12:00:00 AM EDT [facility] Outpatient [facility] 10/01/2020 12:00:00 AM EST eCW1 ([facility]) Outpatient Attender: Caitie CHRISTOPHERP-C 09/24/2020 04:45:[address] [facility] Attender: Jonelle ASKEW PPNCSTEPHANIE Carroll 11/2020 11:10:00 AM EST - 09/24/2020 11:10:00 AM EST [facility] srvlnc implantable subdermal contraceptiveEncounter for oth general cnsl and advice on contraceptionOther sex counseling [facility] ([facility]) Enctr srvlnc implantable subdermal contr aceptive Encounter for oth general cnsl and advic e on contraception Other sex counseling Outpatient [facility] 09/24/2020 12:00:00 AM EST eCW1 ([facility]) Outpatient [facility] 09/24/2020 12:00:00 AM EST eCW1 ([facility]) Outpatient Attender: Sandra CALDWELLCReferrer: Sandra CHRISTOPHERP [facility] 09/17/2020 09:13:00 AM EST - 09/17/2020 09:13:00 AM [facility] Outpatient [facility] 09/17/2020 12:00:00 AM EST eCW1 ([facility]) Outpatient Attender: Nirav Tuckerender: NIRAV BRENNAN 09/03/2020 08:02:00 AM [facility] Emergency Attender: ANNABELLA Singletoner: Sandra SUAREZ 09/01/2020 11:13:00 PM EST - 09/01/2020 11:32:00 PM EST [facility] Patient discharged. Outpatient Attender: [facility] 08/29/2020 01:3 5:[address] [facility] Emergency Attender: ARNULFO HICKEY MDConsultant: RAYNE NAIDU SR 08/29/2020 12:47:00 PM EST - 08/29/2020 03:45:00 PM EST [facility] Patient discharged. [facility] 08/02/2020 12:00:00 AM EST eCW1 ([facility]) [facility] 07/05/2020 12:00:00 AM EST eCW1 ([facility]) Emergency Attender: Eduard CALDWELLCConsultant: CURRY BARAJAS SR 07/02/2020 01:57:00 PM EST - 07/02/2020 03:20:00 PM EST [facility] Patient discharged. [facility] 07/02/2020 12:00:00 AM EST eCW1 ([facility]) Outpatient Attender: Caitie SUAREZ-C 06/25/2020 11:00:0 0 AM [facility] Out[facility] 06/25/2020 12:00:00 AM EST eCW1 ([facility]) Emergency Attender: Desi ZIEGLERCReferrer: CURRY REINOSO ACE SR 06/19/2020 03:46:00 PM EST - 06/19/2020 04:54:00 PM EST [facility] pital Patient discharged. Outpatient Attender: Roxy Jaime [facility]-NPReferrer : CURRY NAIDU SR EMERGENCY ROOM-LABOTHPROV 05/04/2020 08:45:00 AM EDT - 05/04/2020 08:45:[address] [facility] Outpatient CPSCAORT-LABEJN 05/03/2020 09:51:00 AM EDT [facility] Outpatient [facility] 05/03/2020 12:00:00 AM EDT eCW1 ([facility]) Emergency Attender: JOSE ALFREDO ASKEW ED-ED 05/02 01:35:00 PM EDT - 05/02/2020 03:48:00 PM EDT LOWER LEFT BACK PAIN DIZZINESS NAUSEA [facility] LOWER LEFT BACK PAIN DIZZINESS NAUSEA Patient discharged. Emergency Attender: DAVID CHOE JR Attender: DAVID CHOE JRReferrer: CURRY NAIDU SR 05/02/2020 12:14:00 PM EDT - 05/02/2020 12:23:0 [address] [facility] Patient discharged. Outpatient Attender: Roxy Jaime [facility]-SOAP PRESS FEEDER [facility] 04/19/2020 03:30:00 AM EDT - 04/19/2020 03:30:00 AM EDT [facility] ([facility]) Attender: Roxy Jaime [facility]AP [facility] FE[facility]ER 04/19/2020 12: 00:00 AM EDT [facility] ([facility]) Extended Individual Psychotherapy - 45 min Attender: Nikky Conway [facility] 04/16/2020 10:00:00 AM EDT - 04/16/2020 10:00:00 AM EDT [facility] ([facility]) Attender: Fabiola Conway 04/16/2020 12:00:00 AM EDT [facility] ([facility]) Outpatient Attender: NAVI OAKLEY NPReferrer: Nick ASKEW 04/09/2020 12:00:00 AM EDT [facility] Extended Individual Psychotherapy - 45 min Attender: Nikky Conway [facility] 03/26/2020 09:00:00 AM EDT - 03/26/2020 09:00:00 AM EDT [facility] ([facility]) Attender: Fabiola Conway 03/26/2020 12:00:00 AM EDT [facility] ([facility]) Outpatient Attender: CURRY NAIDU SRReferrer: CURRY Siegel SR 03/16/2020 03:00:00 PM EDT - 03/16/2020 03:00:00 PM EDT [facility] Outpatient Attender: CURRY NAIDU SR 03/05/2020 09:11:00 AM [facility] Outpatient Attender: CURRY NAIDU SR 10/17/2019 10:00:00 AM [facility] Emergency Attender: MURIEL Barreraerrer: CURRY NAIDU SR 03/28/2019 09:47:00 PM EDT - 03/28/2019 10:41:00 PM [facility] Patient discharged. Emergency Attender: Desi ZIEGLERCReferrer: CURRY REINOSO ACE, SR 03/15/2019 05:30:00 PM EDT - 03/15/2019 06:30:00 PM EDT [facility] Patient discharged. Emergency Attender: GUCCI CANELA [facility] tender: GUCCI CANELAReferrer: CURRY NAIDU EMERGENCY ROOM-ER 02/21/2019 03:01:00 AM EDT - 02/21/2019 06:30:00 AM [facility] Patient discharged. Emergency Attender: ALONSO WalkerCAttender: ALONSO PEREZReferrer: CURRY NAIDU SR 02/19/2019 04:45:00 AM EDT - 02/19/2019 06:36:0 0 AM [facility] Patient discharged. Outpatient Attender: CURRY NAIDU SRReferrer: CURRY Siegel SR 09/23/2018 09:00:00 AM EST - 09/23/2018 09:00:00 AM [facility] Emergency Attender: MURIEL Barreraerrer: CURRY NAIDU SR 09/16/2018 08:02:00 PM EST - 09/16/2018 09:02:00 PM [facility] Emergency Attender: SHEIR Singletoner: ALONSO ASKEW 08/07/2018 04:18:00 PM EST - 08/07/2018 07:07:00 PM [facility] Outpatient Attender: Sandra Blancootte FNPReferrer: CURRY BARAJAS SR 03/14/2018 09:00:00 AM [facility] Emergency Attender: MURIEL ASKEW EMERGENCY ROOM- ER 12/03/2016 05:00:00 AM EDT - 12/03/2016 07:34:00 AM [facility] Emergency Attender: MURIEL ASKEW EMERGENCY ROOM- ER 11/12/2016 08:09:00 PM EDT - 11/12/2016 08:55:00 PM [facility] Emergency Attender: Araceli Montez MD EMERGENCY ROOM-E R 11/04/2016 11:16:00 AM EDT - 11/04/2016 12:59:00 PM [facility] Outpatient CPSCAORT-LABEJN 10[facility]26[facility]I COBB EM[facility]ENCY ROOM-ER 07/18 05:05:00 PM [facility] - 07/18/2016 06:47:00 PM [facility] Outpatient CPSCAORT-LABEJN 10/12/2015 08:18:00 PM EDT [facility] Outpatient CPSCAORT-LABEJN 07/30/2015 07:02:00 PM [facility] Outpatient Attender: DELGADO TRENT SOAP PRESS FEEDER CPSCAORT-CPSGNOBG 0 07/30/2015 01:16:00 PM [facility] - 07/30/2015 01:17:00 PM [facility] Outpatient Attender: RADHA ASKEW CPSCAORT-LABEJN 06/21 12:18:00 PM [facility] Emergency Attender: SHANNAN ASKEW 04/21/20 15 04:57:00 PM EDT - 04/21/2015 05:34:00 PM [facility] Functional Status Immunizations Vaccine Date Status Description Data Source(s) COVID-19 VACCINE Andreina 2020 12:00:00 AM EDT completed NYSIIS Vaccine Series Complete: YESThis Data wa s Submitted to [facility] [place]. 09/24/2020 05:15:00 PM EST completed e CW1 ([facility]) 09/24/2020 05:15:00 PM EST completed e CW1 ([facility]) 09/24/2020 05:15:00 PM EST completed e CW1 ([facility]) 09/24/2020 05:15:00 PM EST completed e CW1 ([facility]) 09/24/2020 05:15:00 PM EST completed e CW1 ([facility]) 09/24/2020 05:15:00 PM EST completed e CW1 ([facility]) 09/24/2020 05:15:00 PM EST completed e CW1 ([facility]) 09/24/2020 05:15:00 PM EST completed e CW1 ([facility]) 09/24/2020 05:15:00 PM EST completed e CW1 ([facility]) 09/24/2020 05:15:00 PM EST completed e CW1 ([facility]) 09/24/2020 05:15:00 PM EST completed e CW1 ([facility]) 09/24/2020 05:15:00 PM EST completed e CW1 ([facility]) Medications Medication Brand Name Start Date Product Form Dose Route Admi nistrative Instructions Pharmacy Instructions Status Indications Reaction Description Data Source(s) ferrous sulfate 325 MG Delayed Release O ral Tablet Ferrous Sulfate 325 (65 Fe) MG Ferrous Sulfate 325 (65 Fe) MG 05/09/2021 12:00:00 AM EDT 1. 0 {tablet} active Ferrous Sulfate 325 (65 Fe) MG eCW1 ([facility]) ferrous sulfate 325 MG Delayed Release O ral Tablet Ferrous Sulfate 325 (65 Fe) MG Ferrous Sulfate 325 (65 Fe) MG 05/09/2021 12:00:00 AM EDT 1. 0 {tablet} active Ferrous Sulfate 325 (65 Fe) MG eCW1 ([facility]) 1 % 05/03/2021 12:00:00 AM [...] 04/29/2021 12:00:00 AM EDT ORAL active MEDENT ([facility]) Alprazolam 0.5 MG Oral Tablet ALPRAZOLAM [...] DAILY DOSE = 4 TABLETS SOLD: 04/25/2021 [facility] Alprazolam 0.5 MG Oral Tablet ALPRAZolam 0.5 MG ALPRAZolam 0 .5 MG 04/18/2021 12:00:00 AM EDT 1.0 {tablet} active AL PRAZolam 0.5 MG eCW1 ([facility]) Alprazolam 0.5 MG Oral Tablet ALPRAZolam 0.5 MG ALPRAZolam 0 .5 MG 04/18/2021 12:00:00 AM EDT 1.0 {tablet} active AL PRAZolam 0.5 MG eCW1 ([facility]) Alprazolam 0.5 MG Oral Tablet ALPRAZolam 0.5 MG ALPRAZolam 0 .5 MG 04/18/2021 12:00:00 AM EDT 1.0 {tablet} active AL PRAZolam 0.5 MG eCW1 ([facility]) Acetaminophen 325 MG / Hydrocodone Sel[place] trate 5 MG Oral Tablet HYDROcodone- Acetaminophen 5-325 MG HYDROcodone-Acetaminophen 5-325 MG 04/18/2021 12:00:00 AM EDT 1.0 {tablet_as_needed} active HYDROcodone-Acetaminophen 5-325 MG eCW1 ([facility]) Alprazolam 0.5 MG Oral Tablet ALPRAZolam 0.5 MG ALPRAZolam 0 .5 MG 04/18/2021 12:00:00 AM EDT 1.0 {tablet} active AL PRAZolam 0.5 MG eCW1 ([facility]) Acetaminophen 325 MG / Hydrocodone Selwyn trate 5 MG Oral Tablet HYDROcodone- Acetaminophen 5-325 MG HYDROcodone-Acetaminophen 5-325 MG 04/18/2021 12:00:00 AM EDT 1.0 {tablet_as_needed} active HYDROcodone-Acetaminophen 5-325 MG eCW1 ([facility]) Alprazolam 0.5 MG Oral Tablet ALPRAZolam 0.5 MG ALPRAZolam 0 .5 MG 04/18/2021 12:00:00 AM EDT 1.0 {tablet} active AL PRAZolam 0.5 MG eCW1 ([facility]) Acetaminophen 325 MG / Hydrocodone Selwyn trate 5 MG Oral Tablet HYDROcodone- Acetaminophen 5-325 MG HYDROcodone-Acetaminophen 5-325 MG 04/18/2021 12:00:00 AM EDT 1.0 {tablet_as_needed} active HYDROcodone-Acetaminophen 5-325 MG eCW1 ([facility]) Alprazolam 0.5 MG Oral Tablet [Xanax] Xanax 0.5 MG Xanax 0.5 MG 04/15/2021 12:00:00 AM EDT 1.0 {tablet_as_needed} active Xanax 0.5 MG eCW1 ([facility]) Alprazolam 0.5 MG Oral Tablet ALPRAZolam 0.5 MG ALPRAZolam 0 .5 MG 04/15/2021 12:00:00 AM EDT 1.0 {tablet} active AL PRAZolam 0.5 MG eCW1 ([facility]) Alprazolam 0.5 MG Oral Tablet [Xanax] Xanax 0.5 MG Xanax 0.5 MG 04/15/2021 12:00:00 AM EDT 1.0 {tablet_as_needed} active Xanax 0.5 MG eCW1 ([facility]) Alprazolam 0.5 MG Oral Tablet [Xanax] Xanax 0.5 MG Xanax 0.5 MG 04/15/2021 12:00:00 AM EDT 1.0 {tablet_as_needed} active Xanax 0.5 MG eCW1 ([facility]) Acetaminophen 325 MG / Hydrocodone Selwyn trate 5 MG Oral Tablet HYDROcodone- Acetaminophen 5-325 MG HYDROcodone-Acetaminophen 5-325 MG 04/12/2021 12:00:00 AM EDT 1.0 {tablet_as_needed} active HYDROcodone-Acetaminophen 5-325 MG eCW1 ([facility]) Acetaminophen 325 MG / Hydrocodone Selwyn trate 5 MG Oral Tablet HYDROcodone- Acetaminophen 5-325 MG HYDROcodone-Acetaminophen 5-325 MG 04/12/2021 12:00:00 AM EDT 1.0 {tablet_as_needed} active HYDROcodone-Acetaminophen 5-325 MG eCW1 ([facility]) Acetaminophen 325 MG / Hydrocodone Selwyn trate 5 MG Oral Tablet HYDROcodone- Acetaminophen 5-325 MG HYDROcodone-Acetaminophen 5-325 MG 04/12/2021 12:00:00 AM EDT 1.0 {tablet_as_needed} active HYDROcodone-Acetaminophen 5-325 MG eCW1 ([facility]) Acetaminophen 325 MG / Hydrocodone Selwyn trate 5 MG Oral Tablet HYDROcodone- Acetaminophen 5-325 MG HYDROcodone-Acetaminophen 5-325 MG 04/12/2021 12:00:00 AM EDT 1.0 {tablet_as_needed} active HYDROcodone-Acetaminophen 5-325 MG eCW1 ([facility]) Acetaminophen 325 MG / Hydrocodone Selwyn trate 5 MG Oral Tablet HYDROcodone- Acetaminophen 5-325 MG HYDROcodone-Acetaminophen 5-325 MG 04/06/2021 12:00:00 AM EDT 1.0 {tablet_as_needed} suspended HYDROcodone-Acetaminophen 5- 325 MG eCW1 ([facility]) Acetaminophen 325 MG / Hydrocodone Selwyn trate 5 MG Oral Tablet HYDROcodone- Acetaminophen 5-325 MG HYDROcodone-Acetaminophen 5-325 MG 04/06/2021 12:00:00 AM EDT 1.0 {tablet_as_needed} suspended HYDROcodone-Acetaminophen 5- 325 MG eCW1 ([facility]) Acetaminophen 325 MG / Hydrocodone Selwyn trate 5 MG Oral Tablet HYDROcodone- Acetaminophen 5-325 MG HYDROcodone-Acetaminophen 5-325 MG 04/06/2021 12:00:00 AM EDT 1.0 {tablet_as_needed} active HYDROcodone-Acetaminophen 5-325 MG eCW1 ([facility]) Acetaminophen 325 MG / Hydrocodone Selwyn trate 5 MG Oral Tablet HYDROcodone- Acetaminophen 5-325 MG HYDROcodone-Acetaminophen 5-325 MG 04/06/2021 12:00:00 AM EDT 1.0 {tablet_as_needed} suspended HYDROcodone-Acetaminophen 5- 325 MG eCW1 ([facility]) Acetaminophen 325 MG / Hydrocodone Selwyn trate 5 MG Oral Tablet HYDROcodone- Acetaminophen 5-325 MG HYDROcodone-Acetaminophen 5-325 MG 04/06/2021 12:00:00 AM EDT 1.0 {tablet_as_needed} suspended HYDROcodone-Acetaminophen 5- 325 MG eCW1 ([facility]) Acetaminophen 325 MG / Hydrocodone Selwyn trate 5 MG Oral Tablet HYDROcodone- Acetaminophen 5-325 MG HYDROcodone-Acetaminophen 5-325 MG 04/06/2021 12:00:00 AM EDT 1.0 {tablet_as_needed} suspended HYDROcodone-Acetaminophen 5- 325 MG eCW1 ([facility]) Acetaminophen 325 MG / Hydrocodone Selwyn trate 5 MG Oral Tablet HYDROcodone- Acetaminophen 5-325 MG HYDROcodone-Acetaminophen 5-325 MG 04/06/2021 12:00:00 AM EDT 1.0 {tablet_as_needed} suspended HYDROcodone-Acetaminophen 5- 325 MG eCW1 ([facility]) Acetaminophen 325 MG / Hydrocodone Selwyn trate 5 MG Oral Tablet HYDROcodone- Acetaminophen 5-325 MG HYDROcodone-Acetaminophen 5-325 MG 04/06/2021 12:00:00 AM EDT 1.0 {tablet_as_needed} suspended HYDROcodone-Acetaminophen 5- 325 MG eCW1 ([facility]) Acetaminophen 325 MG / Hydrocodone Selwyn trate 5 MG Oral Tablet HYDROcodone- Acetaminophen 5-325 MG HYDROcodone-Acetaminophen 5-325 MG 04/06/2021 12:00:00 AM EDT 1.0 {tablet_as_needed} suspended HYDROcodone-Acetaminophen 5- 325 MG eCW1 ([facility]) Acetaminophen 325 MG / Hydrocodone Selwyn trate 5 MG Oral Tablet HYDROcodone- Acetaminophen 5-325 MG HYDROcodone-Acetaminophen 5-325 MG 04/06/2021 12:00:00 AM EDT 1.0 {tablet_as_needed} active HYDROcodone-Acetaminophen 5-325 MG eCW1 ([facility]) Acetaminophen 325 MG / Hydrocodone Selwyn trate 5 MG Oral Tablet HYDROcodone- Acetaminophen 5-325 MG HYDROcodone-Acetaminophen 5-325 MG 04/06/2021 12:00:00 AM EDT 1.0 {tablet_as_needed} suspended HYDROcodone-Acetaminophen 5- 325 MG eCW1 ([facility]) Fluticasone propionate 0.05 MG/ACTUAT Metered Dose [place] 50 mcg/actuation FLUTICASONE PROPIONATE 04/05/2021 12:00:00 AM [...] MOUTH ONCE DAILY SOLD: 05/03/2021 [facility] [id number] 0.3 ML Epinephrine 1 MG/ML Auto-Injector EPINEPHRI NE 04/04/2021 12:00:00 AM EDT auto-injector 2 INJECT DIRECTED INJECT DIRECTED SOLD: 04/05/2021 [facility] 20 mg 04/01/2021 12:00:00 AM EDT [...] 1.0 {tablet_as_needed} active HYDROcodone-Acetaminophen 5-325 MG eCW1 ([facility]) Acetaminophen 325 MG / Hydrocodone Selwyn trate 5 MG Oral Tablet HYDROcodone- Acetaminophen 5-325 MG HYDROcodone-Acetaminophen 5-325 MG 03/21/2021 12:00:00 AM EDT 1.0 {tablet_as_needed} active HYDROcodone-Acetaminophen 5-325 MG eCW1 ([facility]) Alprazolam 0.5 MG Oral Tablet [Xanax] Xanax 0.5 MG Xanax 0.5 MG 03/21/2021 12:00:00 AM EDT 1.0 {tablet_as_needed} active Xanax 0.5 MG eCW1 ([facility]) Alprazolam 0.5 MG Oral Tablet [Xanax] Xanax 0.5 MG Xanax 0.5 MG 03/21/2021 12:00:00 AM EDT 1.0 {tablet_as_needed} active Xanax 0.5 MG eCW1 ([facility]) Acetaminophen 325 MG / Hydrocodone [...] DAILY DOSE = 4 TABLETS SOLD: 03/21/2021 [facility] Alprazolam 0.5 MG Oral Tablet [Xanax] Xanax 0.5 MG Xanax 0.5 MG 03/21/2021 12:00:00 AM EDT 1.0 {tablet_as_needed} active Xanax 0.5 MG eCW1 ([facility]) 100 mg 03/09/2021 12:00:00 AM EDT tablet 30 TAKE ONE TABLET BY MOUTH EVERY DAY TAKE ONE TABLET BY MOUTH EVERY DAY SOLD: 04/09/2021 [facility] 100 mg 03/09/2021 12:00:00 AM EDT tablet 30 TAKE ONE TABLET BY MOUTH EVERY DAY TAKE ONE TABLET BY MOUTH EVERY DAY SOLD: 05/08/2021 [facility] 100 mg 03/09/2021 12:00:00 AM EDT tablet 30 TAKE ONE TABLET BY MOUTH EVERY DAY TAKE ONE TABLET BY MOUTH EVERY DAY SOLD: 03/12/2021 [facility] Losartan Potassium 100 MG Oral Tablet Losartan Potassium 100 MG 03/08/2021 12:00:00 AM EDT 1.0 {tablet} active Lo sartan Potassium 100 MG eCW1 ([facility]) Losartan Potassium 100 MG Oral Tablet Losartan Potassium 100 MG 03/08/2021 12:00:00 AM EDT 1.0 {tablet} active Lo sartan Potassium 100 MG eCW1 ([facility]) Alprazolam 0.5 MG Oral Tablet [Xanax] Xanax 0.5 MG Xanax 0.5 MG 03/08/2021 12:00:00 AM EDT 1.0 {tablet} active Xa nax 0.5 MG eCW1 ([facility]) Alprazolam 0.5 MG Oral Tablet ALPRAZOLAM 03/08/2021 12:00:00 AM EDT ta blet 14 TAKE ONE TABLET BY MOUTH TWICE A DAY FOR 7 DAYS MAXIMUM DAILY DOSE = 2 TAKE ONE TABLET BY MOUTH TWICE A DAY FOR 7 DAYS MAXIMUM DAILY DOSE = 2 SOLD: 03/08/2021 [facility] Losartan Potassium 100 MG Oral Tablet Losartan Potassium 100 MG 03/08/2021 12:00:00 AM EDT 1.0 {tablet} active Lo sartan Potassium 100 MG eCW1 ([facility]) Acetaminophen 325 MG / Hydrocodone Bitartrate 5 MG Ora l Tablet 5-325 mg HYDROCODONE/ACETAMINOPHEN 03/08/2021 12:00:00 AM EDT tablet 20 TAKE ONE TABLET BY MOUTH EVERY 6 HOURS NEEDED MAXIMUM DAILY DOSE = 4 TABLETS TAKE ONE TABLET BY MOUTH EVERY 6 HOURS NEEDED MAXIMUM DAILY DOSE = 4 TABLETS SOLD: 03/08/2021 [facility] Losartan Potassium 100 MG Oral Tablet Losartan Potassium 100 MG 03/08/2021 12:00:00 AM EDT 1.0 {tablet} active Lo sartan Potassium 100 MG eCW1 ([facility]) Losartan Potassium 100 MG Oral Tablet Losartan Potassium 100 MG 03/08/2021 12:00:00 AM EDT 1.0 {tablet} active Lo sartan Potassium 100 MG eCW1 ([facility]) Losartan Potassium 100 MG Oral Tablet Losartan Potassium 100 MG 03/08/2021 12:00:00 AM EDT 1.0 {tablet} active Lo sartan Potassium 100 MG eCW1 ([facility]) Acetaminophen 325 MG / Hydrocodone Selwyn trate 5 MG Oral Tablet HYDROcodone- Acetaminophen 5-325 MG HYDROcodone-Acetaminophen 5-325 MG 03/08/2021 12:00:00 AM EDT 1.0 {tablet_as_needed} active HYDROcodone-Acetaminophen 5-325 MG eCW1 ([facility]) Losartan Potassium 100 MG Oral Tablet Losartan Potassium 100 MG 03/08/2021 12:00:00 AM EDT 1.0 {tablet} active Lo sartan Potassium 100 MG eCW1 ([facility]) Losartan Potassium 100 MG Oral Tablet Losartan Potassium 100 MG 03/08/2021 12:00:00 AM EDT 1.0 {tablet} active Lo sartan Potassium 100 MG eCW1 ([facility]) Losartan Potassium 100 MG Oral Tablet Losartan Potassium 100 MG 03/08/2021 12:00:00 AM EDT 1.0 {tablet} active Lo sartan Potassium 100 MG eCW1 ([facility]) Losartan Potassium 100 MG Oral Tablet Losartan Potassium 100 MG 03/08/2021 12:00:00 AM EDT 1.0 {tablet} active Lo sartan Potassium 100 MG eCW1 ([facility]) Losartan Potassium 100 MG Oral Tablet Losartan Potassium 100 MG 03/08/2021 12:00:00 AM EDT 1.0 {tablet} active Lo sartan Potassium 100 MG eCW1 ([facility]) Losartan Potassium 100 MG Oral Tablet Losartan Potassium 100 MG 03/08/2021 12:00:00 AM EDT 1.0 {tablet} active Lo sartan Potassium 100 MG eCW1 ([facility]) Losartan Potassium 100 MG Oral Tablet Losartan Potassium 100 MG 03/08/2021 12:00:00 AM EDT 1.0 {tablet} active Lo sartan Potassium 100 MG eCW1 ([facility]) 1 % 03/07/2021 12:00:00 AM [...] 12:00:00 AM EDT 1.0 {tablet} active eCW1 ([facility]) 400 mcg 02/07/2021 12:00:00 AM [...] {tablet_as_needed} suspended Percocet 10 -325 MG eCW1 ([facility]) 300 mg 02/07/2021 12:00:00 AM [...] {tablet_as_needed} suspended Percocet 10 -325 MG eCW1 ([facility]) 300 mg 02/07/2021 12:00:00 AM [...] 12:00:00 AM EDT 1.0 {tablet_as_needed} active eCW1 ([facility]) 50 mg 01/20/2021 12:00:00 AM [...] {tablet} active ZyrTEC Allergy 10 MG eCW1 ([facility]) Fluticasone Propionate 50 MCG/ACT Fluticasone Propionate 50 MCG/ACT 01/13/2021 12:00:00 AM EDT 1.0 {spray_in_each_nostril} acti ve Fluticasone Propionate 50 MCG[facility] Fluticasone Propionate 50 MCG/ACT Fluticasone Propionate 50 MCG/ACT 01/13/2021 12:00:00 AM EDT 1.0 {spray_in_each_nostril} acti ve Fluticasone Propionate 50 MCG/ACT [facility] Fluticasone Propionate 50 MCG/ACT Fluticasone Propionate 50 MCG/ACT 01/13/2021 12:00:00 AM EDT 1.0 {spray_in_each_nostril} acti ve Fluticasone Propionate 50 MCG/ACT eCW1 ([facility]) Fluticasone Propionate 50 MCG/ACT Fluticasone Propionate 50 MCG/ACT 01/13/2021 12:00:00 AM EDT 1.0 {spray_in_each_nostril} acti ve Fluticasone Propionate 50 MCG/ACT [facility]CW[facility] cetirizine hydrochloride 10 MG Oral Tablet [Zyrtec] Zy rTEC Allergy 10 MG ZyrTEC Allergy 10 MG 01/13/2021 12:00:00 AM EDT 1.0 {tablet} active ZyrTEC Allergy 10 MG [facility]CW1 [facility] Fluticasone Propionate 50 MCG/ACT Fluticasone Propionate 50 MCG/ACT 01/13/2021 12:00:00 AM EDT 1.0 {spray_in_each_nostril} acti ve Fluticasone Propionate 50 MCG/ACT eCW1 ([facility]) cetirizine hydrochloride 10 MG Oral Tablet [Zyrtec] Zy rTEC Allergy 10 MG ZyrTEC Allergy 10 MG 01/13/2021 12:00:00 AM EDT 1.0 {tablet} active ZyrTEC Allergy 10 MG eCW1 ([facility]) cetirizine hydrochloride 10 MG Oral Tablet [Zyrtec] Zy rTEC Allergy 10 MG ZyrTEC Allergy 10 MG 01/13/2021 12:00:00 AM EDT 1.0 {tablet} active ZyrTEC Allergy 10 MG eCW1 ([facility]) cetirizine hydrochloride 10 MG Oral Tablet [Zyrtec] Zy rTEC Allergy 10 MG ZyrTEC Allergy 10 MG 01/13/2021 12:00:00 AM EDT 1.0 {tablet} active ZyrTEC Allergy 10 MG eCW1 ([facility]) cetirizine hydrochloride 10 MG Oral Tablet [Zyrtec] Zy rTEC Allergy 10 MG ZyrTEC Allergy 10 MG 01/13/2021 12:00:00 AM EDT 1.0 {tablet} active ZyrTEC Allergy 10 MG eCW1 ([facility]) Fluticasone Propionate 50 MCG/ACT Fluticasone Propionate 50 MCG/ACT 01/13/2021 12:00:00 AM EDT 1.0 {spray_in_each_nostril} acti ve Fluticasone Propionate 50 MCG/ACT eCW1 ([facility]) Fluticasone Propionate 50 MCG/ACT Fluticasone Propionate 50 MCG/ACT 01/13/2021 12:00:00 AM EDT 1.0 {spray_in_each_nostril} acti ve Fluticasone Propionate 50 MCG/ACT eCW1 ([facility]) cetirizine hydrochloride 10 MG Oral Tablet [Zyrtec] Zy rTEC Allergy 10 MG ZyrTEC Allergy 10 MG 01/13/2021 12:00:00 AM EDT 1.0 {tablet} active ZyrTEC Allergy 10 MG eCW1 ([facility] [place]) 1 % 01/10/2021 [...] ood} active Effexor XR 150 MG eCW1 ([facility]) 25 mg 09/25/2020 12:00:00 AM EST tablet [...] EST suspended Imitr ex 25 MG eCW1 ([facility] [place]) Sumatriptan 25 MG Oral Tablet [Imitrex] Imitrex 25 MG Imitre x 25 MG 09/24/2020 12:00:00 AM EST active Imitrex 25 MG eCW1 ([facility] [place]) Sumatriptan 25 MG Oral Tablet [Imitrex] Imitrex 25 MG Imitre x 25 MG 09/24/2020 12:00:00 AM EST active Imitrex 25 MG eCW1 ([facility] [place]) Sumatriptan 25 MG Oral Tablet [Imitrex] Imitrex 25 MG Imitre x 25 MG 09/24/2020 12:00:00 AM EST active Imitrex 25 MG eCW1 ([facility] [place]) Sumatriptan 25 MG Oral Tablet [Imitrex] Imitrex 25 MG Imitre x 25 MG 09/24/2020 12:00:00 AM EST suspended Imitr ex 25 MG eCW1 ([facility] [place]) Sumatriptan 25 MG Oral Tablet [Imitrex] Imitrex 25 MG Imitre x 25 MG 09/24/2020 12:00:00 AM EST active Imitrex 25 MG eCW1 ([facility] [place]) Sumatriptan 25 MG Oral Tablet [Imitrex] Imitrex 25 MG Imitre x 25 MG 09/24/2020 12:00:00 AM EST active Imitrex 25 MG eCW1 ([facility] [place]) Sumatriptan 25 MG Oral Tablet [Imitrex] Imitrex 25 MG Imitre x 25 MG 09/24/2020 12:00:00 AM EST active Imitrex 25 MG eCW1 ([facility] [place]) Sumatriptan 25 MG Oral Tablet [Imitrex] Imitrex 25 MG Imitre x 25 MG 09/24/2020 12:00:00 AM EST active Imitrex 25 MG eCW1 ([facility] [place]) Sumatriptan 25 MG Oral Tablet [Imitrex] Imitrex 25 MG Imitre x 25 MG 09/24/2020 12:00:00 AM EST suspended Imitr ex 25 MG eCW1 ([facility]) Sumatriptan 25 MG Oral Tablet [Imitrex] Imitrex 25 MG Imitre x 25 MG 09/24/2020 12:00:00 AM EST suspended Imitr ex 25 MG eCW1 ([facility]) Sumatriptan 25 MG Oral Tablet [Imitrex] Imitrex 25 MG Imitre x 25 MG 09/24/2020 12:00:00 AM EST suspended Imitr ex 25 MG eCW1 ([facility]) 24 HR venlafaxine 75 MG Extended Release Oral Capsule [Effexor] Effexor XR 75 MG Effexor XR 75 MG 09/17/2020 12:00:00 AM EST 1.0 {capsule_with_fo od} active Effexor XR 75 MG eCW1 ([facility]) 24 HR venlafaxine 75 MG Extended Release Oral Capsule [Effexor] Effexor XR 75 MG Effexor XR 75 MG 09/17/2020 12:00:00 AM EST 1.0 {capsule_with_fo od} active Effexor XR 75 MG eCW1 ([facility]) 24 HR venlafaxine 75 MG Extended Release Oral Capsule [Effexor] Effexor XR 75 MG Effexor XR 75 MG 09/17/2020 12:00:00 AM EST 1.0 {capsule_with_fo od} active Effexor XR 75 MG eCW1 ([facility]) 24 HR venlafaxine 75 MG Extended Release Oral Capsule [Effexor] Effexor XR 75 MG Effexor XR 75 MG 09/17/2020 12:00:00 AM EST 1.0 {capsule_with_fo od} active Effexor XR 75 MG eCW1 ([facility]) 24 HR venlafaxine 75 MG Extended Release Oral Capsule [Effexor] Effexor XR 75 MG Effexor XR 75 MG 09/17/2020 12:00:00 AM EST 1.0 {capsule_with_fo od} active Effexor XR 75 MG eCW1 ([facility]) 75 mg 09/17/2020 12:00:00 AM EST capsule,extended [...] physical therapy eval and tx - eCW1 ([facility] [place]) physical therapy eval and tx - UNK 06/25/2020 12:00:00 AM EST active physical therapy eval and tx - eCW1 ([facility] [place]) Diclofenac Sodium 1 % UNK 06/25/2020 12:00:00 AM EST active Diclofenac Sodium 1 % eCW1 ([facility]) Diclofenac Sodium 1 % UNK 06/25/2020 12:00:00 AM EST active Diclofenac Sodium 1 % eCW1 ([facility]) Diclofenac Sodium 1 % UNK 06/25/2020 12:00:00 AM EST active Diclofenac Sodium 1 % eCW1 ([facility]) Diclofenac Sodium 1 % UNK 06/25/2020 12:00:00 AM EST active Diclofenac Sodium 1 % eCW1 ([facility]) physical therapy eval and tx - UNK 06/25/2020 12:00:00 AM EST active physical therapy eval and tx - eCW1 ([facility] [place]) physical therapy eval and tx - UNK 06/25/2020 12:00:00 AM EST active physical therapy eval and tx - eCW1 ([facility] [place]) 300 mg 06/19/2020 12:00:00 AM EST capsule [...] 10 mg by mouth completed <td ID="Medic ationRxNorm_3">518019</td><td ID="MedicationMedication_3">buspirone</td><td ID="MedicationRoute_3">by mouth</td><td ID="MedicationRouteConcept_3">H52102</td><td ID="MedicationStartDate_3">04/19/2020</td><td ID="MedicationStopDate_3"></td><td ID="MedicationDosageFrequency_3">twice a day</td><td ID="MedicationDuration_3"></td><td ID="MedicationFormulaStrength_3">10 mg</td><td ID="MedicationDosageForm_3">tablet</td><td ID="MedicationDosageFormCode_3"></td><td ID="MedicationDosageDescription_3"></td><td ID="MedicationMedicationId_3">[id number]</td><td ID="MedicationAccount_3">[id number]</td><td ID="MedicationNpid_3">[id number]</td><td ID="MedicationAuthorFirstName_3">Roxy</td><td ID="MedicationAuthorLastName_3">Yeni</td><td ID="MedicationTaxonomyCode_3">[id number]</td><td ID="MedicationTaxonomyDesc_3">Psychiatric/Mental Health</td><td ID="MedicationPhoneNumber_3">[phone]</td> Accumedic ([facility]) 7.5 mg 04/09/2020 12:00:00 AM EDT [...] 7.5 mg by mouth completed <td ID="Medic ationRxNorm_4">954324</td><td ID="MedicationMedication_4">buspirone</td><td ID="MedicationRoute_4">by mouth</td><td ID="MedicationRouteConcept_4">A96747</td><td ID="MedicationStartDate_4">03/22/2020</td><td ID="MedicationStopDate_4">04/19/2020</td><td ID="MedicationDosageFrequency_4">twice a day</td><td ID="MedicationDuration_4"></td><td ID="MedicationFormulaStrength_4">7.5 mg</td><td ID="MedicationDosageForm_4">tablet</td><td ID="MedicationDosageFormCode_4"></td><td ID="MedicationDosageDescription_4"></td><td ID="MedicationMedicationId_4">[id number]</td><td ID="MedicationAccount_4">[id number]</td><td ID="MedicationNpid_4">[id number]</td><td ID="MedicationAuthorFirstName_4">Roxy</td><td ID="MedicationAuthorLastName_4">[place]</td><td ID="MedicationTaxonomyCode_4">[id number]</td><td ID="MedicationTaxonomyDesc_4">Psychiatric/Mental Health</td><td ID="MedicationPhoneNumber_4">[phone]</td> Accumedic ([facility]) [place] Carbonate 300 MG Oral Capsule lithium carbonate 12:00:00 AM EDT 300 mg by mouth completed <td ID="MedicationRxNorm_4">616869</td><td ID="MedicationMedication_4">lithium carbonate</td><td ID="MedicationRoute_4">by mouth</td><td ID="MedicationRouteConcept_4">Z23409</td><td ID="MedicationStartDate_4">03/22/2020</td><td ID="MedicationStopDate_4"></td><td ID="MedicationDosageFrequency_4">at bedtime</td><td ID="MedicationDuration_4"></td><td ID="MedicationFormulaStrength_4">300 mg</td><td ID="MedicationDosageForm_4">capsule</td><td ID="MedicationDosageFormCode_4"></td><td ID="MedicationDosageDescription_4"></td><td ID="MedicationMedicationId_4">[id number]</td><td ID="MedicationAccount_4">[id number]</td><td ID="MedicationNpid_4">[id number]</td><td ID="MedicationAuthorFirstName_4">Roxy</td><td ID="MedicationAuthorLastName_4">Yeni</td><td ID="MedicationTaxonomyCode_4">[id number]</td><td ID="MedicationTaxonomyDesc_4">Psychiatric/Mental Health</td><td ID="MedicationPhoneNumber_4">[phone]</td> Accumedic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 stress disorder, chronic Condition 04/19/2020 12:00:00 AM EDT [facility] ([facility]) Surgeries/Procedures Procedure Description Date Indications Data Source(s) X-Ray Spine Lumbosacral Complete Inc Bending Views Min Of 6 04/29/2021 12:00:00 AM EDT [facility] ([facility]) X-Ray Hip Unilateral With Pelvis 2-3 Views 04/29/2021 12:00:00 AM EDT [facility] ([facility] ) OFFICE OUTPATIENT VISIT 25 MINUTES 04/29/2021 12:00:00 AM EDT [facility] ([facility] ) RADEX SPINE CRV COMPL W/OBLQ&FLEX&/XTN STDS 04/29/2021 12:00:00 AM EDT [facility] ([facility] ) OFFICE OUTPATIENT VISIT 15 MINUTES 04/25/2021 12:00:00 AM EDT [facility] ([facility] ) Extended Individual Psychotherapy - 45 min 04/14/2021 12:00:00 AM EDT - 04/14/2021 12:00:00 AM EDT [facility] ([facility]) Extended Individual Psychotherapy - 45 min 12:00:00 AM EDT [facility] ([facility]) Needle electromyography, each extremity, with related paraspinal areas, when performed, done with nerve conduction, amplitude and latency/velocity study; complete, five or more muscles studied, innervated by three or more nerves or four or more spinal levels (list separately in addition to the code for primary procedure). 04/06/2021 12:00:00 AM EDT [facility] T ([facility] ) Nerve Conduction 9-10 Studies 04/06/2021 12:00:00 AM E DT [facility] ([facility] ) OFFICE OUTPATIENT NEW 45 MINUTES 04/06/2021 12:00:00 A M EDT [facility] ([facility] ) Psychiatric Diagnostic Evaluation (Non-Medical) 03/31/2021 12:00:00 AM EDT - 03/31/2021 12:00:00 AM EDT [facility] ([facility]) Psychiatric Diagnostic Evaluation (Non-Medical) 2020 12:00:00 AM EDT [facility] ([facility]) Extended Individual Psychotherapy - 45 min 03/08/2021 12:00:00 AM EDT - 03/08/2021 12:00:00 AM EDT [facility] ([facility]) Extended Individual Psychotherapy - 45 min 12:00:00 AM EDT [facility] ([facility]) CVR Senior Consumer Insights Consultant.Svc. Other 09/24/2020 12:00:00 AM EST - 2020 12:00:00 AM EST [facility] ([facility]) CVR Med.Svc. Height/Weight 09/24/2020 12 :00:00 AM EST - 09/24/2020 12:00:00 AM EST [facility] ([facility]) CVR Blood Pressure 09/24/2020 12:00:00 AM EST - 2020 12:00:00 AM EST [facility]) IMPLANT REMOVAL 09/24/2020 12:00:00 AM EST - 12:00:00 AM EST [facility] ([facility]) RADEX WRIST COMPLETE MINIMUM 3 VIEWS 09/03/2020 12:00: 00 AM EST [facility] ([facility]) MHC Telemed E/M Lvl 3--Est pt 04/19/2020 12:00:00 AM EDT - 04/19/2020 12:00:00 AM EDT [facility] ([facility]) Telemed A/O 30" 04/19/2020 12:00:00 AM EDT [facility] ([facility]) MHC Telemed E/M Lvl 3--Est pt 04/19/2020 12:00:00 AM E DT [facility] ([facility]) Extended Individual Psychotherapy - 45 min 04/16/2020 12:00:00 AM EDT - 04/16/2020 12:00:00 AM EDT [facility] ([facility]) Extended Individual Psychotherapy - 45 min 0 12:00:00 AM EDT [facility] ([facility]) Extended Individual Psychotherapy - 45 min 03/26/2020 12:00:00 AM EDT - 03/26/2020 12:00:00 AM EDT [facility] ([facility]) Extended Individual Psychotherapy - 45 min 0 12:00:00 AM EDT [facility] ([facility]) Results ID Date Data Source [id number] 05/01/2021 09:15:00 PM EDT [facility] Name Value Range Interpretation Code Description Data Ashly rce(s) Supporting Document(s) SARS-CoV-2 RNA Resp Ql LENY+probe NOT DETECTED [facility] This lab was ordered by STEPHANIE martinez and reported by STEPHANIE Ramirez. ID Date Data Source [id number] 04/20/2021 01:18:24 PM EDT [facility] Name Value Range Interpretation Code Description Data Ashly rce(s) Supporting Document(s) Progress Note [facility] [id number] [id number] [file] [id number] ID Date Data Source [id number] 04/10/2021 10:57:00 PM EDT [facility] Patient: JUHI ROLON Observation [facility].VisitID: [id number] [place] [address] [phone], FRegistration Date/Time: 04/10/2021 21:42 Weight:98.4 kg (S). [...] D 25-HYDROXY 03/16/2021 12:00:00 AM EDT eCW1 ([facility]) Name Value Range Interpretation Code Description Data Ashly rce(s) Supporting Document(s) 26.5 30.0-100.0 TOTAL 25(OH) VITAMIN D eC W1 ([facility]) ID Date Data Source PLATELET ESTIMATE 03/16/2021 12:00:00 AM EDT eCW1 ([facility]) Name Value Range Interpretation Code Description Data Ashly rce(s) Supporting Document(s) NORMAL NORMAL PLATELET ESTIMATE eCW1 ([facility]) ID Date Data Source DIFFERENTIAL 03/16/2021 12:00:00 AM EDT eCW1 ([facility]) Name Value Range Interpretation Code Description Data Ashly rce(s) Supporting Document(s) 64 28-66 NEUTROPHILS eCW1 ([facility]) 6 0-5 MONOCYTES eCW1 ([facility]) 25 16-44 LYMPHOCYTES eCW1 ([facility]) 4 0-5 ATYPICAL LYMPH eCW1 ([facility]) 1 0-1 BASOPHILS eCW1 ([facility]) SMALL AMT PLATELET CLUMPS eCW1 ([facility]) ID Date Data Source LIPID PANEL (CARDIAC RISK) 03/16/2021 12:00:00 AM EDT eCW1 ( [facility]) Name Value Range Interpretation Code Description Data Ashly rce(s) Supporting Document(s) Triglyceride [Mass/volume] in Serum or Plasma by calculation 132 <150 TRIGLYCERIDES LEVEL eCW1 ([facility]) Cholesterol [Moles/volume] in Serum or Plasma 165 <200 CHOLESTEROL LEVEL eCW1 ([facility]) Cholesterol in HDL [Moles/volume] in Serum or Plasma 59 >40 HDL CHOLESTEROL eCW1 ([facility]) Cholesterol in LDL [Mass/volume] in Serum or Plasma by calculation 80 <100 LDL CHOLESTEROL eCW1 ([facility]) 106 NON-HDL-C eCW1 ([facility]) 2.796 <5 CHOLESTEROL RISK RATIO eCW1 ([facility]) ID Date Data Source IRON (FE) 03/16/2021 12:00:00 AM EDT eCW1 ([facility]) Name Value Range Interpretation Code Description Data Ashly rce(s) Supporting Document(s) 47 50-170 IRON (FE) eCW1 ([facility]) ID Date Data Source Comprehensive Metabolic Profile (CMP) 03/16/2021 12:00:00 AM EDT eCW1 ([facility]) Name Value Range Interpretation Code Description Data Ashly rce(s) Supporting Document(s) 96 70-100 GLUCOSE, FASTING eCW1 ([facility]) 0.67 0.55-1.30 CREATININE FOR GFR eCW1 ([facility]) 12 7-18 BLOOD UREA NITROGEN eCW1 ([facility]) > 60.0 >58 GLOMERULAR FILTRATION RATE eCW 1 ([facility]) 139 136-145 SODIUM LEVEL eCW1 ([facility]) 109 98-107 CHLORIDE LEVEL eCW1 ([facility]) 26 21-32 CARBON DIOXIDE LEVEL eCW1 ([facility]) 4.5 3.5-5.1 POTASSIUM SERUM eCW1 ([facility]) 25 7-37 AST/SGOT eCW1 ([facility]) 8.9 8.5-10.1 CALCIUM LEVEL eCW1 ([facility]) 51 12-78 ALT/SGPT eCW1 ([facility]) 131 45-117 ALKALINE PHOSPHATASE eCW1 ([facility]) 0.3 0.2-1.0 BILIRUBIN,TOTAL eCW1 ([facility]) 3.3 3.2-5.2 ALBUMIN eCW1 ([facility]) 7.0 6.4-8.2 TOTAL PROTEIN eCW1 ([facility]) 0.9 1.2-2.2 ALBUMIN/GLOBULIN RATIO eCW1 ([facility]) ID Date Data Source CBC with Differential 03/16/2021 12:00:00 AM EDT eCW1 ([facility]) Name Value Range Interpretation Code Description Data Ashly rce(s) Supporting Document(s) 4.52 4.00-5.40 RED BLOOD COUNT eCW1 ([facility]) 5.3 4.0-10.0 WHITE BLOOD COUNT eCW1 ([facility]) 12.7 12.0-15.5 HEMOGLOBIN eCW1 ([facility]) 28.1 27.0-33.0 MEAN CORPUSCULAR HEMOGLOB IN eCW1 ([facility]) 39.8 36.0-47.0 HEMATOCRIT eCW1 ([facility]) 88.1 80.0-96.0 MEAN CORPUSCULAR VOLUME e CW1 ([facility]) 31.9 32.0-36.5 MEAN CORPUSCULAR HGB CONC eCW1 ([facility]) 13.2 11.5-14.5 RED CELL DISTRIBUTION WID TH eCW1 ([facility]) 348 150-450 PLATELET COUNT, AUTOMATED eCW1 ([facility]) ID Date Data Source [id number] 03/15/2021 10:26:00 PM EDT [facility] Patient: JUHI ROLON Brijesh Observation [facility].VisitID: [id number] [place] [address] [phone], FRegistration Date/Time: 03/15/2021 20:46 Weight:107.5 kg. Height/Length:63 [...] rce(s) Supporting Document(s) ID Date Data Source [id number] 03/15/2021 09:44:00 PM EDT [facility] DATE OF EXAMINATION: 03/15/2021 21:04 EDT HISTORY: [...] rce(s) Supporting Document(s) ID Date Data Source [id number] 03/15/2021 09:43:00 PM EDT [facility] DATE OF EXAMINATION: 03/15/2021 21:04 EDT HISTORY: [...] rce(s) Supporting Document(s) ID Date Data Source [id number] 01/19/2021 08:29:00 PM [facility] Patient: JUHI ROLON Observation port - [facility].VisitID: [id number] [place] [address] [phone], FRegistration Date/Time: 01/19/2021 19:24 Weight:92.9 kg (S). [...] rce(s) Supporting Document(s) ID Date Data Source [id number] 01/10/2021 03:23:00 PM [facility] Patient: JUHI ROLON Observation Re port - [facility].VisitID: [id number] [place] [address] [phone], FRegistration Date/Time: 01/08/2021 15:59 Weight:93.8 kg (S). [...] rce(s) Supporting Document(s) ID Date Data Source [id number] 01/08/2021 04:56:00 PM EDT [facility] [...] rce(s) Supporting Document(s) ID Date Data Source [id number] 01/08/2021 05:06:00 PM EDT [facility] TSYSORDER [id number] Name Value Range Interpretation Code Description Data Ashly rce(s) Supporting Document(s) DDIMER 0.54 mg/LFEU 0.19-0.[address] [facility] ID Date Data Source [id number] 09/17/2020 11:29:00 AM EST [facility] Name Value Range Interpretation Code Description Data Ashly rce(s) Supporting Document(s) FERRITIN 38 ng/mL 8-[address] [facility] ID Date Data Source [id number] 09/17/2020 11:29:00 AM EST [facility] Name Value Range Interpretation Code Description Data Ashly rce(s) Supporting Document(s) IRON 48 ug/dL 50-[address] [facility] TIBC 312 ug/dL 250-[address] [facility] % SATURATION 15 % 20-[address] [facility] ID Date Data Source [id number] 09/17/2020 11:29:00 AM [facility] Name Value Range Interpretation Code Description Data Ashly rce(s) Supporting Document(s) CHOLESTEROL 167 mg/dL 0-[address] [facility] TRIGLYCERIDES 69 mg/dL 0-[address] [facility] LDL CHOLESTEROL 84 mg/dL 0-[address] [facility] HDL CHOLESTEROL 69 mg/dL 40-[address] [facility] CHOL/HDL RATIO 2.4 0.0-5.[address] [facility] ID Date Data Source [id number] 09/17/2020 11:29:00 AM [facility] Name Value Range Interpretation Code Description Data Ashly rce(s) Supporting Document(s) GLUCOSE 87 mg/dL 74-[address] [facility] BLOOD UREA NITROGEN 16 mg/dL 7-18 [facility] CREATININE 0.86 mg/dL 0.6-1.[address] [facility] SODIUM 142 mmol/L 136-[address] [facility] POTASSIUM 4.5 mmol/L 3.5-5.[address] [facility] CHLORIDE 105 mmol/L 98-[address] [facility] CO2 25 mmol/L 21-[address] [facility] CALCIUM 8.8 mg/dL 8.5-10.[address] [facility] ANION GAP 12.0 mmol/L 5-[address] [facility] GLOMERULAR FILTRATION RATE 71 mL/min [facility] GFR IS CALCULATED IN mL/min/1.73m2 NATACHA L FUNCTION: >90MILDLY DECREASED: 60-89MILDY TO MODERATELY DECREASED: 45-59 MODERATELY TO SEVERELY DECREASED: 30-44SEVERELY DECREASED: 15-29RENAL FAILURE: <15 AST 15 U/L 15-[address] [facility] ALT 20 U/L 12-[address] [facility] ALKALINE PHOSPHATASE 72 U/L 46-116 [facility] pital TOTAL BILIRUBIN 0.4 mg/dL 0.2-1.[address] [facility] TOTAL PROTEIN 6.8 g/dl 6.4-8.[address] [facility] ALBUMIN 3.5 gm/dL 3.4-5.[address] [facility] ID Date Data Source [id number] 09/17/2020 11:17:00 AM [facility] Name Value Range Interpretation Code Description Data Ashly rce(s) Supporting Document(s) FREE T4 0.9 ng/dL 0.76-1.[address] [facility] ID Date Data Source [id number] 09/17/2020 11:17:00 AM [facility] Name Value Range Interpretation Code Description Data Ashly rce(s) Supporting Document(s) TSH 0.949 uIU/mL 0.360-3.[address] [facility] ID Date Data Source [id number] 09/17/2020 10:33:00 AM [facility] Name Value Range Interpretation Code Description Data Ashly rce(s) Supporting Document(s) WHITE BLOOD COUNT 5.6 K/mm3 4.0-10.0 [facility] al RED BLOOD COUNT 4.89 M/mm3 4.00-5.50 [facility] HEMOGLOBIN 13.8 gm/dL 12.0-16.[address] [facility] HEMATOCRIT 41.5 % 36.0-48.[address] [facility] MEAN CELL VOLUME 84.9 fl 80-96 [facility] MEAN CORPUSCULAR HEMOGLOBIN 28.2 pg 27.0-31.0 [facility] MEAN CORPUSCULAR HGB CONC 33.3 g/dl 32.0-36.0 [facility] RED CELL DISTRIBUTION WIDTH 12.8 % 10.0-14.5 [facility] PLATELET COUNT 333 K/mm3 172-[address] [facility] ID Date Data Source FERRITIN 09/17/2020 12:00:00 AM EST eCW1 ([facility]) Name Value Range Interpretation Code Description Data Ashly rce(s) Supporting Document(s) 38 8-252 FERRITIN eCW1 ([facility]) ID Date Data Source IRON PROFILE 09/17/2020 12:00:00 AM EST eCW1 ([facility]) Name Value Range Interpretation Code Description Data Ashly rce(s) Supporting Document(s) 312 250-450 TIBC eCW1 ([facility]) 48 50-170 IRON eCW1 ([facility]) 15 20-50 % SATURATION eCW1 ([facility]) ID Date Data Source FREE T4 09/17/2020 12:00:00 AM EST eCW1 ([facility]) Name Value Range Interpretation Code Description Data Ashly rce(s) Supporting Document(s) 0.9 0.76-1.46 FREE T4 eCW1 ([facility]) ID Date Data Source TSH 09/17/2020 12:00:00 AM EST eCW1 ([facility]) Name Value Range Interpretation Code Description Data Ashly rce(s) Supporting Document(s) 0.949 0.360-3.740 TSH eCW1 ([facility]) ID Date Data Source CBC 09/17/2020 12:00:00 AM EST eCW1 ([facility]) Name Value Range Interpretation Code Description Data Ashly rce(s) Supporting Document(s) 5.6 4.0-10.0 WHITE BLOOD COUNT eCW1 ([facility]) 84.9 80-96 MEAN CELL VOLUME eCW1 ([facility]) 41.5 36.0-48.8 HEMATOCRIT eCW1 ([facility]) 13.8 12.0-16.0 HEMOGLOBIN eCW1 ([facility]) 4.89 4.00-5.50 RED BLOOD COUNT eCW1 ([facility]) 333 172-450 PLATELET COUNT eCW1 ([facility]) 28.2 27.0-31.0 MEAN CORPUSCULAR HEMOGLOB IN eCW1 ([facility]) 33.3 32.0-36.0 MEAN CORPUSCULAR HGB CONC eCW1 ([facility]) 12.8 10.0-14.5 RED CELL DISTRIBUTION WID TH eCW1 ([facility]) ID Date Data Source LIPID PROFILE 09/17/2020 12:00:00 AM EST eCW1 ([facility]) Name Value Range Interpretation Code Description Data Ashly rce(s) Supporting Document(s) 167 0-200 CHOLESTEROL eCW1 ([facility]) 69 0-150 TRIGLYCERIDES eCW1 ([facility]) Cholesterol in LDL [Mass/volume] in Serum or Plasma by calculation 84 0-100 LDL CHOLESTEROL eCW1 ([facility]) 69 40-60 HDL CHOLESTEROL eCW1 ([facility]) 2.4 0.0-5.0 CHOL/HDL RATIO eCW1 ([facility]) ID Date Data Source [id number] 09/02/2020 05:28:00 AM [facility] sarah Patient: JUHI ROLON Observation Re port - [facility] [id number] [place] [address] [phone], FRegistration Date/Time: 09/01/2020 22:53 Weight:99.3 kg (S). [...] rce(s) Supporting Document(s) ID Date Data Source [id number] 08/31/2020 09:03:[address] [address] RESPIRATORY CARE REPORT ==== ---------NAME------- NUMBER SEX AGE ADMIT DISC. XRAY# F/C CICI Coley [id number] F 44 08/29/20 08/29/20 [id number] X6B E/R DATE OF : 1975 M/R# [id number] PH#: [phone] TR-1B LOCATION: EMERGENCY DEPT EKG [id number] COMP LETE:08/30/20 10:07 [facility] [address] PHYSICIAN: RUPERTO Name Value Range Interpretation Code Description Data Ashly rce(s) Supporting Document(s) ID Date Data Source [id number] 08/30/2020 11:28:00 [place] [address] PHONE: [phone] FAX: [phone] Name .................. : GONZALES Coley Acct Number.................. : [id number] ROOM. ................. : TR-1B Number ................... : [id number] Stay type ............. : E/R Discharge Date......... ... : Admit Date ......... : 08/29/20 Admit Phys .................... : RUPERTO Date of ....... : 1975 Family Phys ................... : EVANGELISTA STAPLETON Phone .................. : [phone] Age ................................ : 44 Film# .................. .:[id number] Sex ................................. : F Unsigned transcriptions are preliminary reports and do not represent a medical or legal document CHEST PORTABLE [id number] COMPLETE:08/29/20 12:56 3784 Reason(s): cough, chest pain [...] By Kenny Botello MD , 08/30/20 11:28, [facility] Transcribe Initials: FERMIN , Transcribe Date: 08/29/20 15:13, Dictation Date: Copy for: EVANGELISTA VELIZ via fax Copy for: EMERGENCY DEPT via mode Copy for: [facility] REC DISCHARGED Page 1 of 1 Name Value Range Interpretation Code Description Data Ashly rce(s) Supporting Document(s) ID Date Data Source [id number] 08/29/2020 12:47:00 PM EST [facility] 1 OrderSheet [facility] Emergency Department [address] [place] [address] Phone #: ext- [phone] 08/29/2020 12:40 [id number] Sex: F : 1975 Age: 44yWEIGHT:99.3 kg [...] 12:56 08/29/2020 13:14 Krystal Barlow 2 OrderSheet [facility] Emergency Department [address] [place] [address] Phone #: ext- [phone] 08/29/2020 12:40 Patient: JUHI ROLON Sex: F [...] to be a true allergy -- 12:[address] [place] [address] Emergency Department [address] [place] [address] Phone #: ext- [phone] 08/29/2020 12:40 Patient: JUHI ROLON Sex: F : 1975 Age: 44y 08/29/2020 Arnulfo Hickey[Electronically signed by Krystal Barlow R.N. (15:47 08/29/2020)][Electronically signed by Arnulfo Hickey (16:22 08/29/2020)][Electronically locked by Krystal Balrow R.N. (15:47 08/29/2020)] Name Value Range Interpretation Code Description Data [facility] Districte(s) Supporting Document(s) ID Date Data Source [id number] 08/29/2020 12:47:00 PM EST [facility] 1 Medication Reconciliation Report [facility] Emergency Department [address] [place] [address] Phone #: ext- [phone] 08/29/2020 12:40 Patient: [...] rce(s) Supporting Document(s) ID Date Data Source [id number] 08/29/2020 12:47:00 PM [facility] 1 Medication Administration Record [facility] Emergency Department [address] [place] [address] Phone #: ext- [phone] 08/29/2020 12:40 Patient: JUHI ROLON Sex: F : 1975 Age: 44yWeight: 99.3 kgHeight/Length: 63 inBMI: 38.8ALLERGIES: Ibuprofen Date/Time Medication Administered Medication OrderedGiven TORADOL [IVP] (KETOROLAC Toradol IVP 30 mg (NOW x1)13:15 08/29/2020 TROMETHAMINE)Krystal Barlow R.N. Dose: 30 mg IVP Site: #1 right hand Name Value Range Interpretation Code Description Data Ashly rce(s) Supporting Document(s) ID Date Data Source [id number] 08/29/2020 12:47:00 PM [facility] 1 General Instructions [facility] Emergency Department [address] [place] [address] Phone #: ext- [phone] 08/29/2020 12:40 Patient: [...] INFORMATIONChest Wall Pain: Costochondritis 2 General Instructions [facility] Emergency Department [address] [place] [address] Phone #: ext- [phone] 08/29/2020 12:40 Patient: [...] sputum (phlegm) or blood 3 General Instructions [facility] Emergency Department [address] [place] [address] Phone #: ext- [phone] 08/29/2020 12:40 Patient: JUHI ROLON Sex: F : 1975 Age: 44y Abdominal pain Dark red or black stools Fever of 100.4F (38C) or higher, or as directed by your healthcare provider [phone] [employer]. [address] [place] [address]. All rights reserved. This information is not intended as asubstitute for professional medical care. Always follow your healthcare professional's instructions. You have been given the following additional information: Chest Wall Pain, Costochondritis Do not work for ten days.(Electronically signed by Arnulfo Hickey 08/29/2020 16:22) Name Value Range Interpretation Code Description Data Ashly rce(s) Supporting Document(s) ID Date Data Source [id number] 08/29/2020 12:47:00 PM EST [facility] 1 Clinical Report - Nurses [facility] Emergency Department [address] [place] [address] Phone #: ext- [phone] 08/29/2020 12:40 Patient: JUHI ROLON Sex: F : 1975 Age: 44yTRIAGEArrived by private vehicle. Historian: patient. Accompanied by family. ( daughter had covid daughterlives with her, daughter dx 2 weeks ago, pt off quarantine sunday).Acuity: LEVEL 3.Chief Complaint: CHEST PAIN and (chest pain with cough).Alert.Onset. (sunday night). 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 SEPSIS SCREEN NEGATIVE. [...] declined and 2 Clinical Report - Nurses [facility] Emergency Department [address] [place] [address] Phone #: ext- [phone] 08/29/2020 12:40 Patient: JUHI ROLON Sex: F [...] technique and 3 Clinical Report - Nurses [facility] Emergency Department [address] [place] [address] Phone #: ext- [phone] 08/29/2020 12:40 Patient: JUHI ROLON Sex: F [...] lab informed to draw pt). --13:38 08/29/20 Krystal Barlow R.N. 13:33 08/29/20. ( blanket given [...] Barlow R.N. 4 Clinical Report - Nurses [facility] Emergency Department [address] [place] [address] Phone #: ext- [phone] 08/29/2020 12:40 Patient: JUHI ROLON Sex: F : 1975 Age: 44y Condition at departure: improved. No learning barriers present. Discharge instructions provided and reviewed with the patient. Patient verbalized understanding. Written instructions provided in Nauruan. ( QUARENTINE FOR 10 DAYS OR UNTI L TEST RESULTS COME BACK NEGATIVE). The patient was discharged home and accompanied by family. She left ambulatory and via private vehicle. Family member driving. --15:45 08/29/20 Krystal Barlow R.N. Departure time: 15:46 08/29/2020. --15:46 08/29/20 Krystal Barlow R.N.Locked/Released at 08/29/2020 15:47 by Krystal Barlow R.N. Name Value Range Interpretation Code Description Data Ashly rce(s) Supporting Document(s) ID Date Data Source [id number] 08/29/2020 12:47:00 PM EST [facility] 1 Clinical Report - Physicians/Mid Levels [facility] Emergency Department [address] [place], [place] [address] Phone #: ext- [phone] 08/29/2020 12:40 Patient: [...] PTSD. 2 Clinical Report - Physicians/Mid Levels [facility] Emergency Department [address] [place] [address] Phone #: ext- [phone] 08/29/2020 12:40 Patient: [...] rhonchi. 3 Clinical Report - Physicians/Mid Levels [facility] Emergency Department [address] [place] [address] Phone #: [phone] yvx- [phone] 08/29/2020 12:40 Patient: JUHI ROLON Sex: F [...] INDICATED 4 Clinical Report - Physicians/Mid Levels [facility] Emergency Department [address] [place] [address] Phone #: ext- [phone] 08/29/2020 12:40 Patient: [...] Male GFR Interprentation 20-49 yrs >60 mL/min [place]13-82 yrs >56 mL/min Normal 60-69 yrs >49 mL/min Normal 70-79yrs>42 mL/min Normal 80 and above >35 mL/min Normal Female GFRInterpretation 20-39 yrs >60 mL/min Normal 40-49 yrs >58 mL/minNormal 50-59 yrs >51 mL/min Normal 60-69 yrs >45 mL/min Sznoxf42- 79 yrs >39 mL/min Normal 80 and [...] patient managementdecisions.Lactic Acid: (KATHRYN: 08/29/2020 13:47) ( [facility] 15:10) Final results Test Result Flag Units (Reference) LACTIC ACID 1.8 MMOL/L (0.2 - 2.2)LDH: (KATHRYN: 08/29/2020 13:47) ( [facility] 08/29/[facility] 15:11) Final results Test Result Flag Units (Reference) 5 Clinical Report - Physicians/Mid Levels [facility] Emergency Department [address] [place] [address] Phone #: ext- [phone] 08/29/2020 12:40 Patient: JUHI ROLON Sex: F : 1975 Age: 44y LDH 185 U/L (135 - 214)Troponin-T: (KATHRYN: 08/29/2020 13:47) ( [facility] 08/29/[facility] 14:29) Final results Test Result Flag Units (Reference) TROPONIN T <0.01 NG/ML (0.00 - 0.10) TROPONIN T0.1 ng/ml Recommended as the clinical threshold value forTroponin T.Urinalysis: (KATHRYN: 08/29/2020 14:00) ( [facility] 08/29/2020 14:48) Final results Test Result Flag [...] Portable 1 View: (KATHRYN: 08/29/2020 12:56) ( [facility] 08/29/2020 15:18) In Progress Exam CHEST PORTABLE [facility] [address] [place] [address] PHONE: [phone] FAX: [phone] Name .................. : GONZALES Coley Acct Number.................. : [id number] ROOM. ................. : TR- 1B MR Number ................... : [id number] Stay type ............. : E/R Discharge Date......... ... : Admit Date ......... : 08/29/20 Admit Phys .................... : [facility] Date of ....... : 1975 Family Phys ................... : EVANGELISTA DA Phone .................. : [phone] Age .............. .................. : 44 Film# .................. .:[id number] Sex ................................. : F Unsigned transcriptions are preliminary reports and do not represent a medical or legal document CHEST PORTABLE [id number] COMPLETE:08/29/20 12:56 3784 Reason(s): cough, chest pain PORTABLE CHEST X-RAY: CLINICAL HISTORY: 44-year-old woman with a history of a cough. TECHNIQUE: Sitting chest radiograph study is obtained. COMPARISON: A prior study from 12/24/16 is used for comparison. 6 Clinical Report - Physicians/Mid Levels [facility] Emergency Department [address] [place] [address] Phone #: ext- [phone] 08/29/2020 12:40 Patient: JUHI ROLON Sex: F [...] is 7 Clinical Report - Physicians/Mid Levels [facility] Emergency Department [address] [place] [address] Phone #: ext- [phone] 08/29/2020 12:40 Patient: [...] rce(s) Supporting Document(s) ID Date Data Source [id number] 08/29/2020 02:00:00 PM EST [facility] Name Value Range Interpretation Code Description Data [facility](s) Supporting Document(s) SARS coronavirus 2 RNA Not Detected [facility] This lab was ordered by [facility] rahel and reported by [facility]. ID Date Data Source [id number] 09/01/2020 06:13:00 AM EST [facility] Name Value Range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 30 U/L 15-37 Normal (applies to non-numeric resul ts) [facility] Note the following drug interference: Sulfasalazine Sulfapyridine Can see falsely depressed Can see falsely elevated result with up to 10% results with up to 10% decrease in measurement increase in measurement Recommend patients be collected for this test prior to administration of either drug. SGPT(ALT) 46 U/L 12-78 Normal (applies to non-numeric resul ts) [facility] Note the following drug interference: Sulfasalazine Sulfapyridine Can see falsely depressed Can see falsely elevated result with up to 29% results with up to 10% decrease in measurement increase in measurement Recommend patients be collected for this test prior to administration of either drug. Alkaline Phosphatase 160 U/L 38-126 Above high normal [facility] can increase Alkaline Phosp le vels up to 2 times the normal adult value. Normal values for children and adolescents are 2 to 3 times the normal adult value. Total Protein 6.0-8.2 Normal (applies to non-numeric re sults) [facility] Albumin Level 3.4-5.0 Below low normal [facility] ID Date Data Source [id number] 05/02/2020 03:19:00 PM EDT [facility] Name Value Range Interpretation Code Description Data Ashly rce(s) Supporting Document(s) White Blood Count 3.5-10.5 Normal (applies to non-numeri c results) [facility] Red Blood Count 3.90-5.00 Normal (applies to non-numeric results) [facility] Hemoglobin 12.0-15.5 Normal (applies to non-numeric resul ts) [facility] Hematocrit 34.9-44.5 Normal (applies to non-numeric resul ts) [facility] Mean Corpuscular Volume 81.2-95.1 Normal (applies to non- numeric results) [facility] Mean Corpuscular Hgb 25.6-32.2 Normal (applies to non-num josé results) [facility] Mean Corpuscular Hgb Conc 32.0-36.0 Normal (applies to no n-numeric results) [facility] Red Cell Distribution Width 11.9-15.5 Normal (appli es to non-numeric results) [facility] Platelet Count 297 x10 3/uL 150-450 Normal (applies to non-numeric results) [facility] Mean Platelet Volume 9.4-12.4 Normal (applies to non-num josé results) [facility] Neutrophils% (Auto) 31.0-71.0 Normal (applies to non-nume tamie results) [facility] Lymphocytes% (Auto) 20.0-55.0 Normal (applies to non-nume tamie results) [facility] Monocytes% (Auto) 4.0-12.0 Normal (applies to non-numeri c results) [facility] Eosinophils% (Auto) 1.0-8.0 Below low normal [facility] Basophils% (Auto) 0.0-2.0 Normal (applies to non-numeri c results) [facility] Immature Granulocytes% (Auto) 0.0-2.0 Normal (sohial lies to non-numeric results) [facility] Neutrophils# (Auto) 1.50-6.20 Normal (applies to non-nume tamie results) [facility] Lymphocytes# (Auto) 1.20-4.00 Normal (applies to non-nume tamie results) [facility] Monocytes# (Auto) 0.00-0.90 Normal (applies to non-numeri c results) [facility] Eosinophils# (Auto) 0.00-0.50 Normal (applies to non-nume tamie results) [facility] Basophils# (Auto) 0.00-0.20 Normal (applies to non-numeri c results) [facility] Immature Granulocytes# (Auto) 0.00-7.00 No rmal (applies to non-numeric results) [facility] ID Date Data Source [id number] 05/02/2020 03:13:00 PM EDT [facility] Imaging Services Department Imaging Report [address], [place] [address] %(RAD)RES..mtdd.print.filter("line") Name: JUHI ROLON : 1975 Age/Sex: 44F Ordering Provider: AZAR Zelaya Med Rec #: [id number] Reg Status: DEP ER Room #: Date of Service: 05/02/20 Report Number: [id number] cc:Curry Naidu Sr, MD Send Report To: [id number] CT/CT Abdomen & Pelvis No Contras Reason [...] Date/Time: 05/02/20 1503 Transcribed Date/Time: 05/02/20 151 [employer]: XIN Name Value Range Interpretation Code Description Data Ashly rce(s) Supporting Document(s) ID Date Data Source [id number] 05/04/2020 09:13:00 AM EDT [facility] Procedure Performed By: [facility] [address] [place] [address] Director: Estela Corona MD . Mixed zhou: Mixed zhou, probable contamination. Name Value Range Interpretation Code Description Data Ashly rce(s) Supporting Document(s) ID Date Data Source [id number] 05/04/2020 08:50:[address] [facility] Procedure Performed By: [facility] [address] [place] [address] Director: Estela Corona MD . Name Value Range Interpretation Code Description Data Ashly rce(s) Supporting Document(s) Urine Culture Normal (applies to non-numeric re sults) [facility] ID Date Data Source [id number] 05/02/2020 02:10:00 PM [facility] Collected By: Nurse Initials: af Time Collected: 1343 Collected By: Nurse Initials: af Time Collected: 1343 Name Value Range Interpretation Code Description Data [facility] rce(s) Supporting Document(s) RBC,Urine None Seen [facility] WBC,Urine None Seen [facility] Casts,Urine None Seen Normal (applies to non-numeric resu lts) [facility] Squamous Cells,Urine None Seen [facility] Bacteria,Urine None Seen [facility] Mucus,Urine None Seen [facility] ID Date Data Source [id number] 05/02/2020 02:10:00 PM [facility] Collected By: Nurse Initials: af Time Collected: 1343 Collected By: Nurse Initials: af Time Collected: 8353 Name Value Range Interpretation Code Description Data Ashly rce(s) Supporting Document(s) Color,Urine Colorl-Dk Y Normal (applies to non-numeric res ults) [facility] Clarity,Urine Clear Normal (applies to non-numeric re sults) [facility] Specific [place],Urine 1.005-1.030 Normal (applies to non- numeric results) [facility] pH,Urine 5.0-8.0 Normal (applies to non-numeric resul ts) [facility] Protein,Urine Negative Normal (applies to non-numeric re sults) [facility] Glucose,Urine Negative Normal (applies to non-numeric re sults) [facility] Ketones,Urine Negative Normal (applies to non-numeric re sults) [facility] Blood,Urine Negative [facility] Bilirubin,Urine Negative Normal (applies to non-numeric results) [facility] Urobilinogen,Urine 0.2-1.0 Normal (applies to non-numer ic results) [facility] Leukocyte Esterase,Urine Negative [facility] Nitrite,Urine Negative Normal (applies to non-numeric re sults) [facility] ID Date Data Source [id number] 05/02/2020 12:26:00 PM EDT [facility] Patient: JUHI ROLON Observation Re port - Physicians/Mid Levels Hospitals.VisitID: [id number] [place] [address] [phone], FRegistration Date/Time: 05/02/2020 12:04 Weight:93.8 kg (S). [...] rce(s) Supporting Document(s) ID Date Data Source [id number] 03/18/2020 12:42:00 PM EDT [facility] [...] analyzed through the latest version of the [employer] computer aided diagnosis system. The patient states [...] Never Smoker completed Never S moker eCW1 ([facility]) Smoking 05/04/2021 12:00:00 AM EDT Never Smoker completed Never S moker eCW1 ([facility]) Smoking 04/30/2021 12:00:00 AM EDT Never Smoker completed Never S moker eCW1 ([facility]) Smoking 04/14/2021 12:00:00 AM EDT Unknown if ever smoked comp leted Unknown if ever smoked [facility] Smoking 04/12/2021 12:00:00 AM EDT Never Smoker completed Never S moker eCW1 ([facility]) Smoking 04/12/2021 12:00:00 AM EDT Never Smoker completed Never S moker eCW1 ([facility]) Smoking 04/12/2021 12:00:00 AM EDT Never Smoker completed Never S moker eCW1 ([facility]) Smoking 04/12/2021 12:00:00 AM EDT Never Smoker completed Never S moker eCW1 ([facility]) Smoking 04/12/2021 12:00:00 AM EDT Never Smoker completed Never S moker eCW1 ([facility]) Smoking 04/12/2021 12:00:00 AM EDT Never Smoker completed Never S moker eCW1 ([facility]) Smoking 03/31/2021 12:00:00 AM EDT Unknown if ever smoked comp leted Unknown if ever smoked [facility] ([facility] Smoking 03/08/2021 12:00:00 AM EDT Never Smoker completed Never S moker eCW1 ([facility]) Smoking 03/08/2021 12:00:00 AM EDT Never Smoker completed Never S moker eCW1 ([facility]) Smoking 03/08/2021 12:00:00 AM EDT Never Smoker completed Never S moker eCW1 ([facility]) Smoking 03/08/2021 12:00:00 AM EDT Never Smoker completed Never S moker eCW1 ([facility]) Smoking 03/08/2021 12:00:00 AM EDT Unknown if ever smoked comp leted Unknown if ever smoked [facility] ([facility]) Smoking 02/16/2021 12:00:00 AM EDT Never Smoker completed Never S moker eCW1 ([facility]) Smoking 02/16/2021 12:00:00 AM EDT Never Smoker completed Never S moker eCW1 ([facility]) Smoking 02/16/2021 12:00:00 AM EDT Never Smoker completed Never S moker eCW1 ([facility]) Smoking 02/07/2021 12:00:00 AM EDT Never Smoker completed Never S moker eCW1 ([facility]) Smoking 02/04/2021 12:00:00 AM EDT Never Smoker completed Never S moker eCW1 ([facility]) Smoking 02/04/2021 12:00:00 AM EDT Never Smoker completed Never S moker eCW1 ([facility]) Smoking 01/13/2021 12:00:00 AM EDT Never Smoker completed Never S moker eCW1 ([facility]) Smoking 01/13/2021 12:00:00 AM EDT Never Smoker completed Never S moker eCW1 ([facility]) Smoking 09/24/2020 12:00:00 AM EST Never Smoker completed Never S moker eCW1 ([facility]) Smoking 09/24/2020 12:00:00 AM EST Never Smoker completed Never S moker eCW1 ([facility]) Smoking 09/24/2020 12:00:00 AM EST Never Smoker completed Never S moker eCW1 ([facility]) Smoking 09/24/2020 12:00:00 AM EST Never smoker completed Never s moker [facility] ([facility]) Smoking 09/24/2020 12:00:00 AM EST Never Smoker completed Never S moker eCW1 ([facility]) Smoking 09/24/2020 12:00:00 AM EST Never Smoker completed Never S moker eCW1 ([facility]) Smoking 07/06/2020 12:00:00 AM EST Never Smoker completed Never S moker eCW1 ([facility]) Smoking 07/06/2020 12:00:00 AM EST Never Smoker completed Never S moker eCW1 ([facility]) Smoking 06/25/2020 12:00:00 AM EST Never Smoker completed Never S moker eCW1 ([facility]) Smoking 06/25/2020 12:00:00 AM EST Never Smoker completed Never S moker eCW1 ([facility]) Smoking 04/19/2020 12:00:00 AM EDT Unknown if ever smoked comp leted Unknown if ever smoked [facility] ([facility]) Smoking 04/16/2020 12:00:00 AM EDT Unknown if ever smoked comp leted Unknown if ever smoked [facility] ([facility]) Smoking 03/26/2020 12:00:00 AM EDT Unknown if ever smoked comp leted Unknown if ever smoked [facility] ([facility]) Vital Signs ID Date Data Source UNK Name Value Range Interpretation Code Description Data Source(s) Body weight 235.0 [lb_av] 235.0 [lb_av] eCW1 ([facility]) Body weight 106.6 kg 106.6 kg W1 ([facility]) Body height 63 [in_i] 63 [in_i] eCW1 ([facility]) Body mass index (BMI) [Ratio] 41.62 kg/m2 41.62 kg/m2 W1 ([facility]) Heart rate 89 /min 89 /min eCW1 ([facility]) Respiratory rate 18 /min 18 /min eCW1 ([facility]) Body temperature 97.6 [degF] 97.6 [degF] eCW1 ( [facility]) Systolic blood pressure 122 mm[Hg] 122 mm[Hg] e CW1 ([facility]) Diastolic blood pressure 84 mm[Hg] 84 mm[Hg] eCW1 ([facility]) Body mass index (BMI) [Ratio] 41.1 kg/m2 41.1 k g/m2 [facility] ([facility]) Body temperature 97.5 [degF] 97.5 [degF] [facility] ([facility]) Body height 64 [in_i] 64 [in_i] [facility] ([facility] ) 5'4" Body weight 239.38 [lb_av] 239.38 [lb_av] MEDEN T ([facility]) Respiratory rate 16 /min 16 /min eCW1 ([facility]) Body temperature 98.0 [degF] 98.0 [degF] eCW1 ( [facility]) Systolic blood pressure 111 mm[Hg] 111 mm[Hg] e CW1 ([facility]) Diastolic blood pressure 79 mm[Hg] 79 mm[Hg] eCW1 ([facility]) Body weight 240 [lb_av] 240 [lb_av] eCW1 ([facility]) Body weight 108.86 kg 108.86 kg eCW1 ([facility]) Body height 63 [in_i] 63 [in_i] eCW1 ([facility]) Body mass index (BMI) [Ratio] 42.51 kg/m2 42.51 kg/m2 eCW1 ([facility]) Heart rate 87 /min 87 /min eCW1 ([facility]) Body mass index (BMI) [Ratio] 38.4 kg/m2 38.4 k g/m2 [facility] ([facility] ) Body weight 217.00 [lb_av] 217.00 [lb_av] MEDEN T ([facility] ) Body temperature 97.6 [degF] 97.6 [degF] [facility] ([facility] ) Body height 63 [in_i] 63 [in_i] [facility] ([facility] 5'3" Body height 63 [in_i] 63 [in_i] eCW1 ([facility]) Body mass index (BMI) [Ratio] 43.04 kg/m2 43.04 kg/m2 eCW1 ([facility]) Heart rate 82 /min 82 /min eCW1 ([facility]) Respiratory rate 17 /min 17 /min eCW1 ([facility]) Body temperature 97.6 [degF] 97.6 [degF] eCW1 ( [facility]) Systolic blood pressure 206 mm[Hg] 206 mm[Hg] e CW1 ([facility]) Diastolic blood pressure 127 mm[Hg] 127 mm[Hg] eCW1 ([facility]) Body weight 243 [lb_av] 243 [lb_av] eCW1 ([facility]) Body weight 110.22 kg 110.22 kg eCW1 ([facility]) Body weight 237.2 [lb_av] 237.2 [lb_av] eCW1 ([facility]) Body height 63 [in_i] 63 [in_i] eCW1 ([facility]) Body mass index (BMI) [Ratio] 42.01 kg/m2 42.01 kg/m2 eCW1 ([facility]) Heart rate 102 /min 102 /min eCW1 ([facility]) Respiratory rate 18 /min 18 /min eCW1 ([facility]) Body temperature 97.8 [degF] 97.8 [degF] eCW1 ( [facility]) Systolic blood pressure 154 mm[Hg] 154 mm[Hg] e CW1 ([facility]) Diastolic blood pressure 102 mm[Hg] 102 mm[Hg] eCW1 ([facility]) Body height 63 [in_i] 63 [in_i] eCW1 ([facility]) Body weight 236 [lb_av] 236 [lb_av] eCW1 ([facility]) Body mass index (BMI) [Ratio] 41.80 kg/m2 41.80 kg/m2 eCW1 ([facility]) Body temperature 97.5 [degF] 97.5 [degF] eCW1 ( [facility]) Heart rate 81 /min 81 /min eCW1 ([facility]) Respiratory rate 19 /min 19 /min eCW1 ([facility]) Oxygen saturation in Arterial blood by Pulse oximetry 100 % 100 % eCW1 ([facility]) Body mass index (BMI) [Ratio] 41.61 kg/m2 41.61 kg/m2 eCW1 ([facility]) Body weight 231.2 [lb_av] 231.2 [lb_av] eCW1 ([facility]) Body height 62.5 [in_i] 62.5 [in_i] eCW1 ([facility]) Body temperature 97.2 [degF] 97.2 [degF] eCW1 ( [facility]) Respiratory rate 16 /min 16 /min eCW1 ([facility]) Heart rate 78 /min 78 /min eCW1 ([facility]) Oxygen saturation in Arterial blood by Pulse oximetry 98 % 98 % eCW1 ([facility]) Body height 62.5 [in_i] 62.5 [in_i] eCW1 ([facility]) Body temperature 97.6 [degF] 97.6 [degF] eCW1 ( [facility]) Heart rate 94 /min 94 /min eCW1 ([facility]) Respiratory rate 18 /min 18 /min eCW1 ([facility]) Oxygen saturation in Arterial blood by Pulse oximetry 99 % 99 % eCW1 ([facility]) Body height 160.02 cm 160.02 cm [facility] ([facility]) Body weight 104.780 kg 104.780 kg [facility] ([facility]) Systolic blood pressure 136 mm[Hg] 136 mm[Hg] N [facility] ([facility]) Diastolic blood pressure 86 mm[Hg] 86 mm[Hg] [facility] ([facility]) Body mass index (BMI) [Ratio] 40.92 kg/m2 Overweight 40.92 kg/m2 [facility] ([facility]) Body height 62.5 [in_i] 62.5 [in_i] eCW1 ([facility]) Body weight 235.0 [lb_av] 235.0 [lb_av] eCW1 ([facility]) Body mass index (BMI) [Ratio] 42.29 kg/m2 42.29 kg/m2 eCW1 ([facility]) Body temperature 98.6 [degF] 98.6 [degF] eCW1 ( [facility]) Heart rate 77 /min 77 /min eCW1 ([facility]) Respiratory rate 18 /min 18 /min eCW1 ([facility]) Oxygen saturation in Arterial blood by Pulse oximetry 98 % 98 % eCW1 ([facility]) Body height 62.5 [in_i] 62.5 [in_i] eCW1 ([facility]) Body weight 241.4 [lb_av] 241.4 [lb_av] eCW1 ([facility]) Body mass index (BMI) [Ratio] 43.44 kg/m2 43.44 kg/m2 eCW1 ([facility]) Body temperature 97.8 [degF] 97.8 [degF] eCW1 ( [facility]) Heart rate 72 /min 72 /min eCW1 ([facility]) Respiratory rate 17 /min 17 /min eCW1 ([facility]) Oxygen saturation in Arterial blood by Pulse oximetry 99 % 99 % eCW1 ([facility]) Systolic blood pressure 0 mm[Hg] Normal (applies t o non-numeric results) 0 mm[Hg] [facility] ([facility]) Body height 0.00 in Normal (applies to non-numeric resu lts) 0.00 in [facility] ([facility]) Body weight Measured 0.00 lbs Normal (applies to n on-numeric results) 0.00 lbs [facility] ([facility]) Body mass index (BMI) [Ratio] 0.00 kg/m2 No rmal (applies to non-numeric results) 0.00 kg/m2 [facility] ([facility]) Diastolic blood pressure 0 mm[Hg] Normal (applies to non-numeric results) 0 mm[Hg] [facility] ([facility]) ID Date Data Source [id number] 05/04/2020 09:13:00 AM EDT Vanessa mcginnis Name Value Range Interpretation Code Description Data Source(s) Weight Measurement Method 8 8 [facility] Weight 3312 3312 [facility] Temperature Source 7 7 [facility] 18 18 [facility] Pulse Rate 84 84 [facility] pital Height 63 63 [facility] pital Blood Pressure 149/82 149/82 [facility] Weight Measurement Method 8 8 [facility] Weight 3312 3312 [facility] pital Temperature Source 7 7 [facility] 96.6 [facility] Res[facility] Rate 16 16 [facility] Pulse Rate 84 84 [facility] pital Height 63 63 [facility] pital Blood Pressure 149/82 149/82 [facility] Weight Measurement Method 8 8 [facility] Weight 3312 3312 [facility] pital Temperature Source 7 7 [facility] Temperature 96.6 96.[facility] Res[facility] 16 16 [facility] Pulse Rate 84 84 [facility] pital Height 63 63 [facility] pital Blood Pressure 149/82 149/82 [facility] Patient Treatment Plan of Care Planned Activity Planned Date Details Description Data Source (s) ferrous sulfate 325 MG Delayed Release Oral Tablet 05/09/2021 12 :00:00 AM EDT eCW1 ([facility]) ferrous sulfate 325 MG Delayed Release Oral Tablet 05/09/2021 12 :00:00 AM EDT eCW1 ([facility]) Acetaminophen 325 MG / Hydrocodone Bitartrate 5 MG Ora l Tablet 04/18/2021 12:00:00 AM EDT eCW1 ([facility]) Alprazolam 0.5 MG Oral Tablet 04/18/2021 12:00:00 AM EDT eCW1 ([facility]) Acetaminophen 325 MG / Hydrocodone Bitartrate 5 MG Ora l Tablet 04/18/2021 12:00:00 AM EDT eCW1 ([facility]) Alprazolam 0.5 MG Oral Tablet 04/18/2021 12:00:00 AM EDT eCW1 ([facility]) Acetaminophen 325 MG / Hydrocodone Bitartrate 5 MG Ora l Tablet 04/18/2021 12:00:00 AM EDT eCW1 ([facility]) Alprazolam 0.5 MG Oral Tablet 04/18/2021 12:00:00 AM EDT eCW1 ([facility]) Alprazolam 0.5 MG Oral Tablet 04/15/2021 12:00:00 AM EDT eCW1 ([facility]) Alprazolam 0.5 MG Oral Tablet [Xanax] 04/15/2021 12:00:00 AM EDT eCW1 ([facility]) Alprazolam 0.5 MG Oral Tablet [Xanax] 04/15/2021 12:00:00 AM EDT eCW1 ([facility]) Alprazolam 0.5 MG Oral Tablet [Xanax] 04/15/2021 12:00:00 AM EDT eCW1 ([facility]) Acetaminophen 325 MG / Hydrocodone Bitartrate 5 MG Ora l Tablet 04/12/2021 12:00:00 AM EDT eCW1 ([facility]) Acetaminophen 325 MG / Hydrocodone Bitartrate 5 MG Ora l Tablet 04/12/2021 12:00:00 AM EDT eCW1 ([facility]) Acetaminophen 325 MG / Hydrocodone Bitartrate 5 MG Ora l Tablet 04/12/2021 12:00:00 AM EDT eCW1 ([facility]) Acetaminophen 325 MG / Hydrocodone Bitartrate 5 MG Ora l Tablet 04/12/2021 12:00:00 AM EDT eCW1 ([facility]) Acetaminophen 325 MG / Hydrocodone Bitartrate 5 MG Ora l Tablet 04/06/2021 12:00:00 AM EDT eCW1 ([facility]) Acetaminophen 325 MG / Hydrocodone Bitartrate 5 MG Ora l Tablet 04/06/2021 12:00:00 AM EDT eCW1 ([facility]) Acetaminophen 325 MG / Hydrocodone Bitartrate 5 MG Ora l Tablet 03/21/2021 12:00:00 AM EDT eCW1 ([facility]) Acetaminophen 325 MG / Hydrocodone Bitartrate 5 MG Ora l Tablet 03/21/2021 12:00:00 AM EDT eCW1 ([facility]) Alprazolam 0.5 MG Oral Tablet [Xanax] 03/21/2021 12:00:00 AM EDT eCW1 ([facility]) Losartan Potassium 100 MG Oral Tablet 03/08/2021 12:00:00 AM EDT eCW1 ([facility]) Alprazolam 0.5 MG Oral Tablet [Xanax] 03/08/2021 12:00:00 AM EDT eCW1 ([facility]) Losartan Potassium 100 MG Oral Tablet 03/08/2021 12:00:00 AM EDT eCW1 ([facility]) Acetaminophen 325 MG / Hydrocodone Bitartrate 5 MG Ora l Tablet 03/08/2021 12:00:00 AM EDT eCW1 ([facility]) Alprazolam 0.5 MG Oral Tablet [Xanax] 02/07/2021 12:00:00 AM EDT eCW1 ([facility]) cetirizine hydrochloride 10 MG Oral Tablet [Zyrtec] 01/14/20 21 12:00:00 AM EDT eCW1 ([facility]) Fluticasone Propionate 50 MCG/ACT 01/13/2021 12:00:00 AM EDT eCW1 ([facility]) cetirizine hydrochloride 10 MG Oral Tablet [Zyrtec] 01/14/20 21 12:00:00 AM EDT eCW1 ([facility]) Fluticasone Propionate 50 MCG/ACT 01/13/2021 12:00:00 AM EDT eCW1 ([facility]) Fluticasone Propionate 50 MCG/ACT 01/13/2021 12:00:00 AM EDT eCW1 ([facility]) cetirizine hydrochloride 10 MG Oral Tablet [Zyrtec] 01/14/20 21 12:00:00 AM EDT eCW1 ([facility]) Fluticasone Propionate 50 MCG/ACT 01/13/2021 12:00:00 AM EDT eCW1 ([facility]) cetirizine hydrochloride 10 MG Oral Tablet [Zyrtec] 01/14/20 21 12:00:00 AM EDT eCW1 ([facility]) 24 HR venlafaxine 150 MG Extended Release Oral Capsule [Effexor] 10/04/2020 12:00:00 AM EDT eCW1 ([facility]) Sumatriptan 25 MG Oral Tablet [Imitrex] 09/24/2020 12:00:00 AM EST eCW1 ([facility]) Sumatriptan 25 MG Oral Tablet [Imitrex] 09/24/2020 12:00:00 AM EST eCW1 ([facility]) Sumatriptan 25 MG Oral Tablet [Imitrex] 09/24/2020 12:00:00 AM EST eCW1 ([facility]) Sumatriptan 25 MG Oral Tablet [Imitrex] 09/24/2020 12:00:00 AM EST eCW1 ([facility]) Sumatriptan 25 MG Oral Tablet [Imitrex] 09/24/2020 12:00:00 AM EST eCW1 ([facility]) Diclofenac Sodium 1 % 06/25/2020 12:00:00 AM EST eCW1 ([facility]) physical therapy eval and tx - 06/25/2020 12:00:00 AM EST eCW1 ([facility]) Diclofenac Sodium 1 % 06/25/2020 12:00:00 AM EST eCW1 ([facility]) physical therapy eval and tx - 06/25/2020 12:00:00 AM EST eCW1 ([facility]) Etonogestrel 68 MG Drug Implant [Nexplanon] 08/30/2018 12:00:00 AM EST [facility] ([facility])
== END 2021-05-14 23:55 | disposition left against medical advice (07) ==
LOC: M ED 18:52
DX: Z53.29 Procedure and treatment not carried out because of patient's decision for other reasons (principal)

== ENCOUNTER → 2021-05-19 | Outpatient (REF) | payer OTHER, MEDICARE ==
[~2021-05-19] MED LIST changes: +CETI-24; +DICL1GEL3; +EPIN0.3I11; +FLUT15.820; +GABA-1171; +QUET300T2; +VENL150C43
== END ==
LOC: M SFHCWAGY 19:16
PROVIDERS: ATTEND Obstetrics & Gynecology
DX: Z12.4 Encounter for screening for malignant neoplasm of cervix (principal); R87.610 Atypical squamous cells of undetermined significance on cytologic smear of cervix (ASC-US)

== ENCOUNTER 2021-06-20 19:32 | Observation (INO) | payer MEDICARE, OTHER ==
[~2021-06-20] VITALS: Ht 162.6 cm; Wt 110.9 kg
[~2021-06-20 19:32] MED LIST changes: +LOSA100T45; -LOSA100T50
[2021-06-20] MEDS ORDERED: NS 1,000 ML IV ONE ×2 (19:50→23:30)
[2021-06-20] MEDS ORDERED: LORazepam 2 MG/ML VIAL IM STA (19:54)
[2021-06-20 20:14] LABS: BASO # 0.1 10^3/uL (0.0-0.2); BASO % 0.4 % (0.0-1.0); EOS # 0.1 10^3/uL (0.0-0.5); EOS % 0.8 % (0.0-3.0); HEMATOCRIT 35.2 % (36.0-47.0); HEMOGLOBIN 10.5 g/dl (12.0-15.5); LYMPH # 2.5 10^3/uL (1.5-5.0); LYMPH % 15.8 % (24.0-44.0); MEAN CORPUSCULAR HEMOGLOBIN 25.2 pg (27.0-33.0); MEAN CORPUSCULAR HGB CONC 29.8 g/dl (32.0-36.5); MEAN CORPUSCULAR VOLUME 84.4 fl (80.0-96.0); MONO # 1.4 10^3/uL (0.0-0.8); MONO % 8.9 % (2.0-8.0); NEUTROPHILS # 11.8 10^3/uL (1.5-8.5); NEUTROPHILS % 73.5 % (36.0-66.0); PLATELET COUNT, AUTOMATED 544 10^3/uL (150-450); RED BLOOD COUNT 4.17 10^6/uL (4.00-5.40)
[2021-06-20 20:48] LABS: ACETAMINOPHEN LEVEL < 2.0 UG/ML (10.0-30.0); ALBUMIN 3.4 GM/DL (3.2-5.2); ALT/SGPT 210 U/L (12-78); BILIRUBIN,DIRECT 0.6 MG/DL (0.0-0.2); BILIRUBIN,TOTAL 1.2 MG/DL (0.2-1.0); BLOOD UREA NITROGEN 18 MG/DL (7-18); CALCIUM LEVEL 8.8 MG/DL (8.5-10.1); CARBON DIOXIDE LEVEL 18 MEQ/L (21-32); CHLORIDE LEVEL 108 MEQ/L (98-107); CREATININE FOR GFR 1.75 MG/DL (0.55-1.30); ETHYL ALCOHOL (ETHANOL) < 0.003 % (0.000-0.010); GLOMERULAR FILTRATION RATE 33.3 (>58); GLUCOSE, FASTING 134 MG/DL (70-100); SALICYLATE LEVEL < 1.7 MG/DL (5.0-30.0); SODIUM LEVEL 140 MEQ/L (136-145); TOTAL PROTEIN 7.3 GM/DL (6.4-8.2)
[2021-06-20 21:16] LABS: ABG BASE EXCESS -8.7 (-2.0-2.0); ABG HCO3 16.9 MEQ/L (22.0-26.0); ABG O2 SATURATION 98.5 % (95.0-99.0); ABG PARTIAL PRESSURE CO2 34.8 mmHg (35.0-45.0); ABG PARTIAL PRESSURE O2 130.7 mmHg (75.0-100.0); ABG STANDARD HCO3 17.4 MEQ/L (22.0-26.0); ABG TOTAL CO2 17.9 MEQ/L (22.0-29.0); ABG pH (ARTERIAL) 7.303 UNITS (7.350-7.450)
[2021-06-20 21:45] LABS: AMPHETAMINES LEVEL URINE NEGATIVE (NEGATIVE); BARBITURATES URINE NEGATIVE (NEGATIVE); BENZODIAZEPINES URINE NEGATIVE (NEGATIVE); CANNABINOIDS URINE NEGATIVE (NEGATIVE); COCAINE METABOLITE URINE NEGATIVE (NEGATIVE); METHADONE URINE NEGATIVE (NEGATIVE); OPIATES URINE POSITIVE (NEGATIVE); PHENCYCLIDINE URINE NEGATIVE (NEGATIVE)
[2021-06-20] MEDS ORDERED: LORazepam 2 MG/ML VIAL IV STA (22:39)
[2021-06-21] MEDS ORDERED: NS 1,000 ML IV SCH (01:10)
[2021-06-21] MEDS ORDERED: NS 1,000 ML IV ONE (01:10)
[2021-06-21 01:15] LABS: RSV AMPLIFICATION NEGATIVE (NEGATIVE)
[2021-06-21] MEDS ORDERED: PIPERACILLIN/TAZOBACTAM SOD 4.5 GM in D5W MINI-BAG PLUS 50 ML IV ONE (01:15)
[2021-06-21] MEDS ORDERED: LORazepam 2 MG/ML VIAL IV STA (01:31)
[2021-06-21] MEDS ORDERED: LORazepam 2 MG TAB XX PRN (03:35)
[2021-06-21] MEDS ORDERED: diazePAM 10MG/2ML SYRINGE (J3360 PER 5MG) IV ONE (03:35)
[2021-06-21] MEDS ORDERED: ACETAMINOPHEN TAB 650MG DOSE (2X325MG) PO PRN (03:35)
[2021-06-21] MEDS ORDERED: D5W/0.45% SODIUM CHLORIDE 1,000 ML IV SCH (03:35)
[2021-06-21] MEDS ORDERED: THIAMINE 100 MG TAB PO SCH (03:42)
[2021-06-21] MEDS ORDERED: VANCOMYCIN HCL 1,000 MG, VIAL MATE ADAPTER 1 EACH in NS 250 ML IV SCH (03:45)
[2021-06-21 03:46] VITALS: BP 169/93
[2021-06-21] MEDS ORDERED: LOSA100T45 PO (03:49)
[2021-06-21] MEDS ORDERED: HYDR-4571 PO (03:49)
[2021-06-21] MEDS ORDERED: OMEP40CA5 PO (03:49)
[2021-06-21] MEDS ORDERED: CETI-24 PO (03:49)
[2021-06-21] MEDS ORDERED: VENL75CA47 PO (03:49)
[2021-06-21] MEDS ORDERED: QUET300T2 PO (03:49)
[2021-06-21] MEDS ORDERED: DICL1GEL3 TOP (03:49)
[2021-06-21] MEDS ORDERED: PROAAER10 INH (03:49)
[2021-06-21] MEDS ORDERED: ERGO500029 PO (03:49)
[2021-06-21] MEDS ORDERED: VITA-172 PO (03:49)
[2021-06-21] MEDS ORDERED: XANA0.5T PO (03:49)
[2021-06-21] MEDS ORDERED: FLON1SPR (03:49)
[2021-06-21] MEDS ORDERED: VENL150C43 PO (03:49)
[2021-06-21] MEDS ORDERED: FERR325T18 PO (03:49)
[2021-06-21] MEDS ORDERED: TAB-TAB3 PO (03:49)
[2021-06-21] MEDS ORDERED: SUMA25TA3 PO (03:49)
[2021-06-21] MEDS ORDERED: D-101000 PO (03:49)
[2021-06-21] MEDS ORDERED: HOME MED LIST COMPLETE! XX SCH (03:50)
[2021-06-21] MEDS ORDERED: VANCOMYCIN HCL 1,000 MG, VIAL MATE ADAPTER 1 EACH in NS 250 ML IV ONE (03:50)
[2021-06-21] MEDS ORDERED: MULTIVITAMINS/MINERALS THERAP 1 TAB PO SCH (09:00)
[2021-06-21] MEDS ORDERED: PIPERACILLIN/TAZOBACTAM SOD 3.375 GM in D5W MINI-BAG PLUS 50 ML IV SCH (09:00)
[2021-06-21] MEDS ORDERED: ENOXAPARIN 30MG/0.3ML SYRINGE (J1650 PER 10MG) SC SCH (09:00)
[2021-06-21] MEDS ORDERED: FOLIC ACID 1 MG TAB PO SCH (09:00)
== END 2021-06-21 05:25 | disposition left against medical advice (07) ==
LOC: M ED 19:32 → M ED INP 19:33
PROVIDERS: ADMIT Internal Medicine; ATTEND Internal Medicine
DX: T50.901A Poisoning by unspecified drugs, medicaments and biological substances, accidental (unintentional), initial encounter (principal); Z53.29 Procedure and treatment not carried out because of patient's decision for other reasons; N17.9 Acute kidney failure, unspecified; M62.82 Rhabdomyolysis; F19.10 Other psychoactive substance abuse, uncomplicated; F10.10 Alcohol abuse, uncomplicated; K56.699 Other intestinal obstruction unspecified as to partial versus complete obstruction; K63.89 Other specified diseases of intestine; R74.01 Elevation of levels of liver transaminase levels; I10 Essential (primary) hypertension; K21.9 Gastro-esophageal reflux disease without esophagitis; G40.909 Epilepsy, unspecified, not intractable, without status epilepticus; Z98.84 Bariatric surgery status; F41.9 Anxiety disorder, unspecified; F32.9 Major depressive disorder, single episode, unspecified; Z79.899 Other long term (current) drug therapy; Z91.030 Bee allergy status; Z88.8 Allergy status to other drugs, medicaments and biological substances
CPT/HCPCS: 36600; 70450; 71250; 74176; 80048; 80076; 80143; 80307; 82077; 82550; 82803; 83605; 83789; 84443; 85025; 87631; 93005; 93041; 96365; 96372; 96375; 96376; 99285; J2060; J2543

== ENCOUNTER → 2021-06-22 | Outpatient (REF) | payer OTHER ==
[~2021-06-22] MED LIST changes: +CETI-24 PO; +D-101000 PO; +DICL1GEL3 TOP; +ERGO500029 PO; +HYDR-4571 PO; -LOSA100T45; +LOSA100T50; +LOSA100T50 PO; +OMEP-221 PO; +PROAAER10 INH; +QUET300T2 PO; +SUMA25TA3 PO; +TAB-TAB3 PO; +VENL75CA47 PO; +VITA-172 PO
== END ==
LOC: M SFHCWAGY 17:07
PROVIDERS: ATTEND Obstetrics & Gynecology
DX: R87.612 Low grade squamous intraepithelial lesion on cytologic smear of cervix (LGSIL) (principal)

== ENCOUNTER → 2021-08-01 | Outpatient (CLI) | payer OTHER ==
[~2021-08-01] MED LIST changes: +LOSA100T45; +LOSA100T45 PO; -LOSA100T50; -LOSA100T50 PO
[2021-08-01 14:16] LABS: BASO % 0.6 % (0.0-1.0); EOS # 0.1 10^3/uL (0.0-0.5); HEMATOCRIT 37.4 % (36.0-47.0); HEMOGLOBIN 11.2 g/dl (12.0-15.5); LYMPH # 1.8 10^3/uL (1.5-5.0); LYMPH % 25.6 % (24.0-44.0); MEAN CORPUSCULAR HEMOGLOBIN 24.2 pg (27.0-33.0); MEAN CORPUSCULAR HGB CONC 29.9 g/dl (32.0-36.5); MEAN CORPUSCULAR VOLUME 80.8 fl (80.0-96.0); MONO # 0.4 10^3/uL (0.0-0.8); MONO % 5.9 % (2.0-8.0); NEUTROPHILS # 4.7 10^3/uL (1.5-8.5); NEUTROPHILS % 66.6 % (36.0-66.0); PLATELET COUNT, AUTOMATED 478 10^3/uL (150-450); RED BLOOD COUNT 4.63 10^6/uL (4.00-5.40); WHITE BLOOD COUNT 7.1 10^3/uL (4.0-10.0)
[2021-08-01 14:52] LABS: ALBUMIN 3.3 GM/DL (3.2-5.2); ALT/SGPT 33 U/L (12-78); BILIRUBIN,TOTAL 0.3 MG/DL (0.2-1.0); BLOOD UREA NITROGEN 11 MG/DL (7-18); CALCIUM LEVEL 9.2 MG/DL (8.5-10.1); CARBON DIOXIDE LEVEL 25 MEQ/L (21-32); CHLORIDE LEVEL 110 MEQ/L (98-107); CREATININE FOR GFR 0.73 MG/DL (0.55-1.30); FERRITIN 32 NG/ML (8-252); GLOMERULAR FILTRATION RATE > 60.0 (>58); GLUCOSE, FASTING 97 MG/DL (70-100); IRON (FE) 37 UG/DL (50-170); PERCENT SATURATION 10.1 % (13.2-45.0); POTASSIUM SERUM 4.4 MEQ/L (3.5-5.1); SODIUM LEVEL 142 MEQ/L (136-145); TOTAL IRON BINDING CAPACITY 366 UG/DL (250-450)
== END ==
LOC: M PLALAB 10:40
PROVIDERS: ATTEND Family Medicine
DX: R74.01 Elevation of levels of liver transaminase levels (principal); D72.829 Elevated white blood cell count, unspecified; D64.9 Anemia, unspecified

== ENCOUNTER 2021-09-14 02:50 | Emergency (ER) | payer OTHER, MEDICARE ==
[~2021-09-14] VITALS: Ht 160 cm; Wt 91.0 kg
[~2021-09-14 02:50] MED LIST changes: -OMEP-221 PO; +OMEP40CA5 PO
[2021-09-14] MEDS ORDERED: ACETAMINOPHEN TAB 650MG DOSE (2X325MG) PO ONE (05:35)
[2021-09-14 06:51] LABS: RSV AMPLIFICATION NEGATIVE (NEGATIVE)
[2021-09-14 07:42] VITALS: BP 172/99
== END 2021-09-14 08:13 | disposition home or self-care (01) ==
LOC: M ED 02:50
DX: F19.10 Other psychoactive substance abuse, uncomplicated (principal); G40.909 Epilepsy, unspecified, not intractable, without status epilepticus; F31.9 Bipolar disorder, unspecified; Z98.84 Bariatric surgery status; Z79.899 Other long term (current) drug therapy; Z88.6 Allergy status to analgesic agent; Z91.030 Bee allergy status

== ENCOUNTER 2021-10-01 14:58 | Emergency (ER) | payer OTHER, MEDICARE ==
[~2021-10-01] VITALS: Ht 160 cm; Wt 99.0 kg
[2021-10-01 15:37] LABS: BASO % 0.4 % (0.0-1.0); EOS # 0.1 10^3/uL (0.0-0.5); EOS % 0.9 % (0.0-3.0); HEMATOCRIT 40.7 % (36.0-47.0); HEMOGLOBIN 12.7 g/dl (12.0-15.5); LYMPH # 2.2 10^3/uL (1.5-5.0); MEAN CORPUSCULAR HGB CONC 31.2 g/dl (32.0-36.5); MEAN CORPUSCULAR VOLUME 83.2 fl (80.0-96.0); MONO # 0.5 10^3/uL (0.0-0.8); MONO % 9.1 % (2.0-8.0); NEUTROPHILS # 2.9 10^3/uL (1.5-8.5); NEUTROPHILS % 51.4 % (36.0-66.0); PLATELET COUNT, AUTOMATED 417 10^3/uL (150-450); RED BLOOD COUNT 4.89 10^6/uL (4.00-5.40); WHITE BLOOD COUNT 5.7 10^3/uL (4.0-10.0)
[2021-10-01 16:11] LABS: HCG, SERUM QUALITATIVE NEGATIVE (NEGATIVE)
[2021-10-01 16:21] LABS: ACETAMINOPHEN LEVEL < 2.0 UG/ML (10.0-30.0); ALBUMIN 3.9 GM/DL (3.2-5.2); ALT/SGPT 26 U/L (12-78); BILIRUBIN,DIRECT < 0.1 MG/DL (0.0-0.2); BILIRUBIN,TOTAL 0.2 MG/DL (0.2-1.0); BLOOD UREA NITROGEN 8 MG/DL (7-18); CALCIUM LEVEL 8.9 MG/DL (8.5-10.1); CARBON DIOXIDE LEVEL 28 MEQ/L (21-32); CHLORIDE LEVEL 110 MEQ/L (98-107); CREATININE FOR GFR 0.84 MG/DL (0.55-1.30); ETHYL ALCOHOL (ETHANOL) < 0.003 % (0.000-0.010); GLOMERULAR FILTRATION RATE > 60.0 (>58); GLUCOSE, FASTING 45 MG/DL (70-100); POTASSIUM SERUM 3.6 MEQ/L (3.5-5.1); SALICYLATE LEVEL < 1.7 MG/DL (5.0-30.0); SODIUM LEVEL 143 MEQ/L (136-145); TOTAL PROTEIN 7.8 GM/DL (6.4-8.2)
[2021-10-01 16:22] LABS: RSV AMPLIFICATION NEGATIVE (NEGATIVE)
[2021-10-01 17:26] LABS: AMPHETAMINES LEVEL URINE NEGATIVE (NEGATIVE); BARBITURATES URINE NEGATIVE (NEGATIVE); BENZODIAZEPINES URINE POSITIVE (NEGATIVE); CANNABINOIDS URINE NEGATIVE (NEGATIVE); COCAINE METABOLITE URINE POSITIVE (NEGATIVE); METHADONE URINE NEGATIVE (NEGATIVE); OPIATES URINE NEGATIVE (NEGATIVE); PHENCYCLIDINE URINE NEGATIVE (NEGATIVE)
[2021-10-01] MEDS ORDERED: GABA-1171 PO (19:02)
[2021-10-01] MEDS ORDERED: COMMENTS (19:24)
[2021-10-01] MEDS ORDERED: HOME MED LIST COMPLETE! XX SCH (19:25)
[2021-10-02 13:26] VITALS: BP 137/85
== END 2021-10-02 13:34 ==
LOC: M ED 14:58
DX: T42.4X2A Poisoning by benzodiazepines, intentional self-harm, initial encounter (principal); R45.851 Suicidal ideations; F32.9 Major depressive disorder, single episode, unspecified; R00.0 Tachycardia, unspecified; Z91.51 Personal history of suicidal behavior; Z98.84 Bariatric surgery status; F10.10 Alcohol abuse, uncomplicated; Z79.899 Other long term (current) drug therapy; Z88.6 Allergy status to analgesic agent; Z91.030 Bee allergy status

== ENCOUNTER → 2022-06-08 | Outpatient (CLI) | payer MEDICARE, OTHER ==
[~2022-06-08] MED LIST changes: +COMMENTS; +GABA-1171 PO
== END ==
LOC: M LAB 10:13
PROVIDERS: ATTEND Family Medicine
DX: F11.20 Opioid dependence, uncomplicated (principal)
CPT/HCPCS: 36415; G0480

== ENCOUNTER → 2022-06-09 | Outpatient (CLI) | payer OTHER | LOC: M LAB 09:12 | PROVIDERS: ATTEND Family Medicine | DX: F11.20 Opioid dependence, uncomplicated (principal) | CPT/HCPCS: 36415; G0480 ==

== ENCOUNTER → 2022-07-21 | Outpatient (CLI) | payer OTHER ==
[2022-07-21 07:56] LABS: BASO % 0.5 % (0.0-1.0); EOS # 0.1 10^3/uL (0.0-0.5); EOS % 1.3 % (0.0-3.0); HEMATOCRIT 39.1 % (36.0-47.0); HEMATOCRIT 39.5 % (36.0-47.0); HEMOGLOBIN 12.4 g/dl (12.0-15.5); LYMPH # 1.5 10^3/uL (1.5-5.0); LYMPH % 27.7 % (24.0-44.0); MEAN CORPUSCULAR HEMOGLOBIN 27.3 pg (27.0-33.0); MEAN CORPUSCULAR HGB CONC 31.7 g/dl (32.0-36.5); MEAN CORPUSCULAR VOLUME 86.1 fl (80.0-96.0); MONO # 0.6 10^3/uL (0.0-0.8); MONO % 11.5 % (2.0-8.0); NEUTROPHILS # 3.3 10^3/uL (1.5-8.5); NEUTROPHILS % 58.8 % (36.0-66.0); PLATELET COUNT, AUTOMATED 401 10^3/uL (150-450); RED BLOOD COUNT 4.54 10^6/uL (4.00-5.40); WHITE BLOOD COUNT 5.6 10^3/uL (4.0-10.0)
[2022-07-21 08:09] LABS: APPEARANCE, URINE MANUAL CLEAR (CLEAR); COLOR, URINE MANUAL LT YELLOW (YELLOW); PH,URINE MAN 7.5 UNITS (5.0 - 7.0)
[2022-07-21 08:10] LABS: BILIRUBIN, URINE MANUAL NEGATIVE (NEGATIVE); BLOOD URINE MANUAL NEGATIVE (NEGATIVE); GLUCOSE, URINE (UA) MANUAL NEGATIVE (NEGATIVE); KETONE, URINE MANUAL NEGATIVE (NEGATIVE); NITRITE, URINE MANUAL NEGATIVE (NEGATIVE); PROTEIN, URINE MANUAL NEGATIVE (NEGATIVE); UROBILINOGEN, URINE MANUAL NORMAL (NORMAL)
[2022-07-21 08:11] LABS: LEUKOCYTE ESTERASE, URINE MAN TRACE (NEGATIVE)
[2022-07-21 08:31] LABS: FERRITIN 20.5 NG/ML (7.3-270.7); FREE T3 4.1 PG/ML (2.3-4.2); FREE T4 0.96 NG/DL (0.89-1.76); THYROID STIMULATING HORMONE 1.082 uIU/ML (0.55-4.78)
[2022-07-21 08:33] LABS: TOTAL 25(OH) VITAMIN D 41.8 NG/ML (20.0-100.0); VITAMIN B12 LEVEL 832 PG/ML (211-911)
[2022-07-21 08:37] LABS: ALBUMIN 3.3 G/DL (3.2-5.2); ALKALINE PHOSPHATASE 144 U/L (46-116); ALT/SGPT 15 U/L (7.0-40); AST/SGOT 19 U/L (<34); BILIRUBIN,TOTAL 0.3 MG/DL (0.3-1.2); BLOOD UREA NITROGEN 8 MG/DL (9-23); CARBON DIOXIDE LEVEL 27 MMOL/L (20-31); CHLORIDE LEVEL 106 MMOL/L (98-107); GLOMERULAR FILTRATION RATE > 60.0 (>58); GLUCOSE, FASTING 99 MG/DL (60-100); POTASSIUM SERUM 4.3 MMOL/L (3.5-5.1); SODIUM LEVEL 141 MMOL/L (136-145); TOTAL PROTEIN 6.6 G/DL (5.7-8.2)
[2022-07-21 08:51] LABS: BACTERIA, URINE SMALL AMOUNT; HYALINE CAST, URINE NONE SEEN /lpf (0-1); RBC, URINE 0-1 /hpf (0-3); SQUAMOUS EPITHELIAL CELL URINE SMALL AMOUNT /hpf (SMALL AMT); TRANSITIONAL EPI CELLS, URINE SMALL AMOUNT /hpf
[2022-07-21 08:52] LABS: AMORPHOUS SEDIMENT, URINE SMALL AMOUNT (NEGATIVE)
== END ==
LOC: M LAB 07:26
PROVIDERS: ATTEND Registered Nurse
DX: F41.9 Anxiety disorder, unspecified (principal); E66.9 Obesity, unspecified; F32.9 Major depressive disorder, single episode, unspecified

== ENCOUNTER → 2022-10-05 | Outpatient (CLI) | payer OTHER ==
[2022-10-05 20:09] LABS: HEMATOCRIT 37.1 % (36.0-47.0); HEMOGLOBIN 11.4 g/dl (12.0-15.5); MEAN CORPUSCULAR HEMOGLOBIN 26.5 pg (27.0-33.0); MEAN CORPUSCULAR HGB CONC 30.7 g/dl (32.0-36.5); MEAN CORPUSCULAR VOLUME 86.1 fl (80.0-96.0); PLATELET COUNT, AUTOMATED 345 10^3/uL (150-450); RED BLOOD COUNT 4.31 10^6/uL (4.00-5.40); WHITE BLOOD COUNT 4.9 10^3/uL (4.0-10.0)
[2022-10-05 20:33] LABS: ALBUMIN 3.6 G/DL (3.2-5.2); ALKALINE PHOSPHATASE 103 U/L (46-116); ALT/SGPT 26 U/L (7.0-40); AST/SGOT 22 U/L (<34); BILIRUBIN,TOTAL 0.2 MG/DL (0.3-1.2); BLOOD UREA NITROGEN 13 MG/DL (9-23); CALCIUM LEVEL 8.9 MG/DL (8.5-10.1); CARBON DIOXIDE LEVEL 29 MMOL/L (20-31); CHLORIDE LEVEL 104 MMOL/L (98-107); CREATININE FOR GFR 0.64 MG/DL (0.55-1.30); GLOMERULAR FILTRATION RATE > 60.0 (>58); GLUCOSE, FASTING 87 MG/DL (60-100); POTASSIUM SERUM 4.2 MMOL/L (3.5-5.1); SODIUM LEVEL 138 MMOL/L (136-145); TOTAL PROTEIN 6.9 G/DL (5.7-8.2)
[2022-10-05 21:02] LABS: HIV 1&2 SCREEN CENTAUR NEGATIVE (NEGATIVE)
[2022-10-05 21:24] LABS: HCG, SERUM QUALITATIVE NEGATIVE (NEGATIVE)
[2022-10-05 21:45] LABS: GC DNA AMPLIFICATION NEGATIVE (NEGATIVE)
[2022-10-06 04:37] LABS: HEPATITIS B SURFACE ANTIGEN NEGATIVE (NEGATIVE)
== END ==
LOC: M LAB 17:06
PROVIDERS: ATTEND Family Medicine
DX: F11.20 Opioid dependence, uncomplicated (principal)

== ENCOUNTER → 2022-10-18 | Outpatient (REF) | payer OTHER | LOC: M SFHCWAGY 17:37 | PROVIDERS: ATTEND Obstetrics & Gynecology | DX: Z12.4 Encounter for screening for malignant neoplasm of cervix (principal); R87.610 Atypical squamous cells of undetermined significance on cytologic smear of cervix (ASC-US) ==

== ENCOUNTER → 2023-10-03 | Outpatient (CLI) | payer OTHER ==
[~2023-10-03] MED LIST changes: +DICL100G10; +DICL100G10 TOP; -DICL1GEL3; -DICL1GEL3 TOP; -EFFE150C2; +EFFE150C3; -LOSA100T45; -LOSA100T45 PO; +LOSA100T46; +LOSA100T46 PO
[2023-10-03 13:40] LABS: HEMATOCRIT 36.7 % (36.0-47.0); HEMOGLOBIN 11.4 g/dl (12.0-15.5); MEAN CORPUSCULAR HEMOGLOBIN 26.8 pg (27.0-33.0); MEAN CORPUSCULAR HGB CONC 31.1 g/dl (32.0-36.5); MEAN CORPUSCULAR VOLUME 86.2 fl (80.0-96.0); PLATELET COUNT, AUTOMATED 299 10^3/uL (150-450); RED BLOOD COUNT 4.26 10^6/uL (4.00-5.40); WHITE BLOOD COUNT 4.9 10^3/uL (4.0-10.0)
[2023-10-03 13:58] LABS: ALBUMIN 3.3 G/DL (3.2-5.2); ALKALINE PHOSPHATASE 103 U/L (46-116); ALT/SGPT 15 U/L (7.0-40); AST/SGOT 17 U/L (<34); BILIRUBIN,TOTAL 0.2 MG/DL (0.3-1.2); BLOOD UREA NITROGEN 12 MG/DL (9-23); CALCIUM LEVEL 8.2 MG/DL (8.5-10.1); CARBON DIOXIDE LEVEL 30 MMOL/L (20-31); CHLORIDE LEVEL 105 MMOL/L (98-107); CREATININE FOR GFR 0.61 MG/DL (0.55-1.30); GLOMERULAR FILTRATION RATE > 60.0 (>58); GLUCOSE, FASTING 85 MG/DL (60-100); POTASSIUM SERUM 4.4 MMOL/L (3.5-5.1); SODIUM LEVEL 139 MMOL/L (136-145); TOTAL PROTEIN 6.3 G/DL (5.7-8.2)
[2023-10-03 14:02] LABS: HCG, SERUM QUALITATIVE NEGATIVE (NEGATIVE)
[2023-10-03 14:30] LABS: HIV 1&2 SCREEN NEGATIVE (NEGATIVE)
[2023-10-03 14:37] LABS: HEPATITIS C VIRUS ABY INDEX 0.02 INDEX (<0.8)
[2023-10-03 15:28] LABS: GC DNA AMPLIFICATION NEGATIVE (NEGATIVE)
== END ==
LOC: M LAB 12:42
PROVIDERS: ATTEND Family Medicine
DX: F11.20 Opioid dependence, uncomplicated (principal)

== ENCOUNTER → 2024-02-14 | Outpatient (CLI) | payer OTHER ==
[2024-02-14 08:34] LABS: BASO % 0.4 % (0.0-1.0); EOS # 0.1 10^3/uL (0.0-0.5); EOS % 1.3 % (0.0-3.0); HEMATOCRIT 34.8 % (36.0-47.0); HEMOGLOBIN 10.3 g/dl (12.0-15.5); LYMPH # 1.4 10^3/uL (1.5-5.0); LYMPH % 30.5 % (24.0-44.0); MEAN CORPUSCULAR HEMOGLOBIN 23.7 pg (27.0-33.0); MEAN CORPUSCULAR HGB CONC 29.6 g/dl (32.0-36.5); MEAN CORPUSCULAR VOLUME 80.2 fl (80.0-96.0); MONO # 0.4 10^3/uL (0.0-0.8); MONO % 9.4 % (2.0-8.0); NEUTROPHILS # 2.7 10^3/uL (1.5-8.5); NEUTROPHILS % 58.4 % (36.0-66.0); PLATELET COUNT, AUTOMATED 312 10^3/uL (150-450); RED BLOOD COUNT 4.34 10^6/uL (4.00-5.40); WHITE BLOOD COUNT 4.7 10^3/uL (4.0-10.0)
[2024-02-14 08:58] LABS: ALBUMIN 3.4 G/DL (3.2-5.2); ALKALINE PHOSPHATASE 115 U/L (46-116); ALT/SGPT 20 U/L (7.0-40); AST/SGOT 21 U/L (<34); BILIRUBIN,TOTAL 0.6 MG/DL (0.3-1.2); BLOOD UREA NITROGEN 10 MG/DL (9-23); CALCIUM LEVEL 8.9 MG/DL (8.5-10.1); CARBON DIOXIDE LEVEL 30 MMOL/L (20-31); CHLORIDE LEVEL 105 MMOL/L (98-107); CHOLESTEROL LEVEL 147 MG/DL (<200); CHOLESTEROL RISK RATIO 1.92 (<5); CREATININE FOR GFR 0.65 MG/DL (0.55-1.30); FERRITIN 7.8 NG/ML (7.3-270.7); GLOMERULAR FILTRATION RATE > 60.0 (>58); GLUCOSE, FASTING 81 MG/DL (60-100); HDL CHOLESTEROL 76.5 MG/DL (>40); IRON (FE) 45 UG/DL (50-170); LDL CHOLESTEROL 55.9 MG/DL (<100); NON-HDL-C 70.5 MG/DL; POTASSIUM SERUM 4.2 MMOL/L (3.5-5.1); SODIUM LEVEL 139 MMOL/L (136-145); THYROID STIMULATING HORMONE 2.063 uIU/ML (0.55-4.78); TOTAL PROTEIN 6.6 G/DL (5.7-8.2); TRIGLYCERIDES LEVEL 73 MG/DL (<150)
[2024-02-14 08:59] LABS: TOTAL 25(OH) VITAMIN D 45.3 NG/ML (20.0-100.0)
[2024-02-14 09:00] LABS: FOLATE 15.26 NG/ML (>5.4)
[2024-02-14 09:14] LABS: HEMOGLOBIN A1c 5.4 % (4.0-6.0)
== END ==
LOC: M LAB 07:45
PROVIDERS: ATTEND Registered Nurse Psychiatric/Mental Health
DX: Z79.899 Other long term (current) drug therapy (principal)

== ENCOUNTER 2024-05-27 10:01 | Day surgery (SDC) | payer OTHER ==
[~2024-05-27] VITALS: Ht 160 cm; Wt 102.6 kg
[~2024-05-27 10:01] MED LIST changes: +GABA-1172; -GABA-282; +METH-1177 PO; +NS 250 ML IV ONE
[2024-05-27] MEDS ORDERED: propofoL 200 MG/20 ML VIAL As Ordered ONE (12:42)
[2024-05-27] MEDS ORDERED: ePHEDrine SULFATE 25 MG/5 ML(5MG/ML) SYRINGE As Ordered ONE (12:46)
[2024-05-27 13:07] VITALS: TEMP 98.5
[2024-05-27] MEDS ORDERED: LIDOCAINE 2% 100MG/5ML SDV (FOR ANES.) As Ordered ONE (13:13)
[2024-05-27 13:25] VITALS: BP 145/66; O2SAT 99
== END 2024-05-27 13:39 | disposition home or self-care (01) ==
LOC: M OPP 10:01
PROVIDERS: ATTEND Surgery
DX: K63.89 Other specified diseases of intestine (principal); I10 Essential (primary) hypertension; M19.90 Unspecified osteoarthritis, unspecified site; F41.9 Anxiety disorder, unspecified; F31.9 Bipolar disorder, unspecified; R56.9 Unspecified convulsions; Z88.6 Allergy status to analgesic agent; Z91.030 Bee allergy status; Z79.891 Long term (current) use of opiate analgesic; Z98.84 Bariatric surgery status

== ENCOUNTER → 2024-11-13 | Outpatient (CLI) | payer OTHER ==
[~2024-11-13] MED LIST changes: -AMBI10TA PO; -CYCL5TAB PO; +CYCL5TAB4 PO; -NS 250 ML IV ONE; +TOPI-257 PO; -TOPI100T9 PO; +ZOLP-533 PO
[2024-11-13 12:28] LABS: HEMOGLOBIN 12.1 g/dl (12.0-15.5); MEAN CORPUSCULAR HEMOGLOBIN 27.5 pg (27.0-33.0); MEAN CORPUSCULAR VOLUME 88.6 fl (80.0-96.0); PLATELET COUNT, AUTOMATED 324 10^3/uL (150-450); WHITE BLOOD COUNT 4.3 10^3/uL (4.0-10.0)
[2024-11-13 12:40] LABS: HCG, SERUM QUALITATIVE NEGATIVE (NEGATIVE)
[2024-11-13 12:41] LABS: ALBUMIN 3.4 G/DL (3.2-5.2); ALKALINE PHOSPHATASE 86 U/L (35-104); ALT/SGPT 10 U/L (7.0-40); AST/SGOT 22 U/L (<34); BILIRUBIN,TOTAL 0.4 MG/DL (0.3-1.2); BLOOD UREA NITROGEN 8 MG/DL (9-23); CALCIUM LEVEL 9.1 MG/DL (8.5-10.1); CARBON DIOXIDE LEVEL 30 MMOL/L (20-31); CHLORIDE LEVEL 105 MMOL/L (98-107); CREATININE FOR GFR 0.69 MG/DL (0.55-1.30); GLOMERULAR FILTRATION RATE > 90.0 (>58); GLUCOSE, FASTING 81 MG/DL (60-100); POTASSIUM SERUM 4.3 MMOL/L (3.5-5.1); SODIUM LEVEL 142 MMOL/L (136-145); TOTAL PROTEIN 7.1 G/DL (5.7-8.2)
[2024-11-13 12:51] LABS: HEPATITIS B SURFACE ANTIGEN NEGATIVE (NEGATIVE)
[2024-11-13 13:04] LABS: HIV 1&2 SCREEN NEGATIVE (NEGATIVE)
[2024-11-13 13:12] LABS: GC DNA AMPLIFICATION NEGATIVE (NEGATIVE); HEPATITIS C VIRUS ABY INDEX 0.05 INDEX (<0.8)
== END ==
LOC: M WUC 09:22
PROVIDERS: ATTEND Family Medicine
DX: F11.20 Opioid dependence, uncomplicated (principal)